=== PATIENT | female | born 1950 | race African-American/Black ===

== ENCOUNTER 2017-08-25 12:31 | Observation (INO) | payer OTHER ==
--- NOTE | 2017-08-25 13:14 | PDOC ---
Attending Attestation - Resident Resident Name: Phil Gomez - ED Attending Attestation I have performed the following: I have examined & evaluated the patient, The case was reviewed & discussed with the resident, I agree w/resident's findings & plan, Exceptions are as noted - HPI HPI: 08/25/17 13:13 "Almost Passed Out" - Physicial Exam PE: 08/25/17 13:14 VSS/NAD - Medical Decision Making 08/25/17 13:[address] Gomez's Assessment and Plan
[2017-08-25] MEDS ORDERED: ONDANSETRON 4 MG/2 ML VIAL ONE (13:33)
[2017-08-25] MEDS ORDERED: ONDANSETRON 4 MG/2 ML VIAL IVPUSH ONE (13:33)
--- NOTE | 2017-08-25 14:22 | PDOC ---
History of Present Illness - General Chief Complaint: Syncope/Near Syncope Stated Complaint: Syncope/Near Syncope Time Seen by Provider: 08/25/17 12:52 - History of Present Illness Initial Comments: 08/25/17 14:21 67 yo F with h/o CAD, BRCA+ breast ca. s/p BL masectomy, and partial hysterectomy, PE, multiple DVT's on Eliquis, CAD s/p [place], stent placement x 2, CVA x 3 who presents with lightheadedness. Patient reports onset of vague symptoms consisting of lightheadedness, non biliary, non bloody emesis, and fatigue beginning this Friday ( 08/22). States that it felt like she was going to pass out. Symptoms persistent through the last 4 days and worsening in severity and duration. Denies fevers/chills, vertigo, MONTIEL, chest pain, SOB, urinary complaints, bowel/abdominal complaints, or BRBPR. PCP Dr. Nasir Cash. Past History - Past Medical History Allergies/Adverse Reactions: Allergies Allergy/AdvReac Type Severity Reaction Status Date / Time No Known Drug Allergies Allergy Verified 06/03/16 16:31 Home Medications: Ambulatory Orders Docusate Sodium 100 mg PO BID 06/03/16 Multivitamin [Poly-Vitamin] 1 each PO DAILY 06/03/16 Omeprazole [Prilosec] 40 mg PO DAILY 06/03/16 Ranitidine [Zantac -] 150 mg PO DAILY 06/03/16 Apixaban [Eliquis] 5 mg PO BID 08/25/17 Calcium Carb/Vitamin D3/Vit K1 [Calcium + D Soft Chewable Tab] 1 each PO BID 01/06 Tamoxifen Citrate 20 mg PO DAILY 08/25/17 Cancer: Yes (left breast) Cardiac Disorders: Yes (cad) CVA: Yes (x3) COPD: No GI Disorders: Yes (GERD) Disorders: No HTN: Yes Hypercholesterolemia: Yes Liver Disease: No Thyroid Disease: No - Surgical History Cardiac Surgery: Yes (card stent x2) Lung Surgery: Yes (lt lumbectomy) Orthopedic Surgery: Yes (R. Foot bunionectomy) - Immunization History Immunization Up to Date: Yes - Suicide/Smoking/Psychosocial Hx Smoking Status: No Smoking History: Former smoker Have you smoked in the past 12 months: No Number of Cigarettes Smoked Daily: 0 If you are a former smoker, when did you quit?: 5YRS AGO Information on smoking cessation initiated: No Hx Alcohol Use: No Drug/Substance Use Hx: No Substance Use Type: None Hx Substance Use Treatment: No Review of Systems - Review of Systems Comments:: 08/25/17 14:43 GENERAL/CONSTITUTIONAL: + Fatigue. No fever or chills. No weakness. HEAD, EYES, EARS, NOSE AND THROAT: No change in vision. No ear pain or discharge. No sore throat.- CARDIOVASCULAR: No chest pain or shortness of breath RESPIRATORY: No cough, wheezing, or hemoptysis. GASTROINTESTINAL: + nausea, and vomiting. No diarrhea or constipation. GENITOURINARY: No dysuria, frequency, or change in urination. MUSCULOSKELETAL: No joint or muscle swelling or pain. No neck or back pain. SKIN: No rash NEUROLOGIC:+ Lightheadedness. No headache, vertigo, loss of consciousness, or change in strength/sensation. ENDOCRINE: No increased thirst. No abnormal weight change HEMATOLOGIC/LYMPHATIC: No anemia, easy bleeding, or history of blood clots. ALLERGIC/IMMUNOLOGIC: No hives or skin allergy. *Physical Exam - Vital Signs Last Vital Signs Temp Pulse Resp BP Pulse Ox 98.3 F 81 18 87/50 97 08/25/17 12:59 08/25/17 12:59 08/25/17 12:59 08/25/17 12:59 08/25/17 13:42 - Physical Exam Comments: 08/25/17 14:43 GENERAL: Awake, alert, and fully oriented, in no acute distress HEAD: No signs of trauma, normocephalic, atraumatic EYES: PERRLA, EOMI, sclera anicteric, conjunctiva clear ENT: Auricles normal inspection, hearing grossly normal, nares patent, oropharynx clear without exudates. Moist mucosa NECK: Normal ROM, supple, no lymphadenopathy, JVD, or masses LUNGS: No distress, speaks full sentences, clear to auscultation bilaterally HEART: Regular rate and rhythm, normal S1 and S2, no murmurs, rubs or gallops, peripheral pulses normal and equal bilaterally. ABDOMEN: Soft, nontender, normoactive bowel sounds. No guarding, no rebound. No masses EXTREMITIES : Normal inspection, Normal range of motion, no edema. No clubbing or cyanosis. NEUROLOGICAL: Cranial nerves II through XII grossly intact. Normal speech, normal gait, no focal sensorimotor deficits SKIN: Warm, Dry, normal turgor, no rashes or lesions noted. Heart Score/ECG Review - History History: Slightly suspicious - Electrocardiogram EKG: Non specific repolarization disturbance - Age Age: >/= 65 - Risk Factors Risk Factors Heart Score: Yes Hx Hypercholesterolemia, Yes Hx Hypertension, Yes Hx Diabetes, Yes Positive family hx of cardiac disease, Yes Hx Obesity Based on the list above the patient has:: >/=3 risk factors or Hx atherosclerotic disease - Troponin Troponin: </= normal limit - Score Heart Score - Total: 5 ED Treatment Course - LABORATORY CBC & Chemistry Diagram: 08/25/17 14:20 08/25/17 14:20 - RADIOLOGY Radiology Studies Ordered: Category Date Time Status CXRPORT [CHEST X-RAY PORTABLE*] [RAD] Stat Radiology 08/25/17 14:11 Ordered - Medications Given in the ED: ED Medications Discontinued Medications Generic Name Dose Route Start Last Admin Trade Name Freq PRN Reason Stop Dose Admin Ondansetron HCl 4 mg 08/25/17 13:33 08/25/17 13:35 Zofran Injection IVPUSH 08/25/17 13:34 4 mg ONCE ONE Administration Medical Decision Making - Medical Decision Making 08/25/17 14:36 67 yo F with h/o CAD, BRCA+ breast ca. s/p BL masectomy, PE, multiple DVT's, CAD s/p [place], stent placement x 2, CVA x 3 who presents with l4 days of vague symptoms consisting of lightheadedness, non biliary, non bloody emesis, and fatigue beginning this Friday ( 08/22). States that it felt like she was going to pass out this AM. Symptoms persistent through the last 4 days and worsening in severity and duration. Denies fevers/chills, vertigo, MONTIEL, chest pain, SOB, urinary complaints, bowel/abdominal complaints, or BRBPR. Physical exam unremarkable and hemodynamically stable. NIH stroke scale 0. Will obtain CT head to r/o CVA. Basic labs and cardiac workup to assess for arrhythmia vs. metabolic disturbance as cause of lightheadedness. ED Course: EKG: Sinus rhtyhm with diffuse TWI. Absent STD, or JACKI. 08/25/17 15:05 Cr: 1.8 ( 1.0 Baseline) 1 10/26/16 15:06 Trop Neg. 08/25/17 15:12 CXR: Unremarkable with no acute interval changes. 08/25/17 15:59 BNP: 550 Heart Score 5 13 % risk MACE. 08/25/17 16:44 CT HEAD: No gross acute intracranial pathology. 08/25/17 16:[address] Best ( Dr. Annabelle Murphy covering) 08/25/17 18:[address] Basilio will admit to night team. . *DC/Admit/Observation/Transfer Diagnosis at time of Disposition: Pre-syncope - Discharge Dispostion Disposition: HOME Condition at time of disposition: Stable Admit: Yes - Referrals Referrals: Shreya Best MD [Primary Care Provider] - - Patient Instructions - Post Discharge Activity
[2017-08-25 14:33] LABS: BASOPHIL 0.1 % (0-2.0); EOSINOPHIL 1.9 % (0-4.5); MCH 27.9 pg (25.7-33.7); MEAN PLT VOLUME 9.3 fl (7.5-11.1); NEUTROPHILS 66.5 % (42.8-82.8); PLATELET COUNT 227 K/MM3 (134-434); RDW 13.2 % (11.6-15.6); WHITE BLOOD COUNT 8.8 K/mm3 (4.0-10.0)
[2017-08-25] MEDS ORDERED: SODIUM CHLORIDE 500 ML IV STA (14:42)
[2017-08-25 14:59] VITALS: BMI 27.4
[2017-08-25 15:00] LABS: ALBUMIN 3.7 g/dl (3.4-5.0); ANION GAP 6 (8-16); BILIRUBIN,TOTAL 0.2 mg/dL (0.2-1.0); CALCIUM 9.8 mg/dL (8.5-10.1); CO2 27 mmol/L (21-32); CREATININE 1.8 mg/dL (0.55-1.02); GLUCOSE,RANDOM 94 mg/dL (74-106); SGPT/ALT 24 U/L (12-78); TOT PROT 6.5 g/dl (6.4-8.2)
[2017-08-25 15:01] LABS: ALK PHOS 48 U/L (45-117); SGOT/AST 21 U/L (15-37)
[2017-08-25 15:03] LABS: CPK 125 IU/L (26-192); TROPONIN I < 0.02 ng/ml (0.00-0.05)
[2017-08-25 15:16] LABS: TROPONIN I < 0.02 ng/ml (0.00-0.05)
[2017-08-25] MEDS ORDERED: SODIUM CHLORIDE 1,000 ML IV STA (16:48)
--- NOTE | 2017-08-25 22:02 | HP ---
CHIEF COMPLAINT: lightheadedness, vomiting PCP: Nasir HISTORY OF PRESENT ILLNESS: This is a 67 year old female with a PMH significant for CAD, MS, CVA who presented to the ED with a report of lightheadedness, nonbiliary, nonbloody emesis and fatigue x 4 days. This am she had an episode where she felt as if she was going to pass out. Pt reports that since arrival to ED and receiving treatment she no longer is vomiting and has successfully ambulated to the bathroom without feeling as if she was going to pass out. Pt denies SOB, palpitations, CP, abdominal pain, constipation, diarrhea. ER course was notable for: (1) troponin negative (2) CT head unremarkable (3) ECG with frequent PVCs Recent Travel: pt denies PAST MEDICAL HISTORY: CAD/MS s/p stents, HTN, HLD, CVA, PE, BrCA PAST SURGICAL HISTORY: B/L mastectomy stent x 2 L lung surgery, Lumpectomy vs lobectomy R foot bunionectomy Social History: Smoking: pt denies, quit in her 40s Alcohol: pt denies Drugs: pt denies Family History: mother in her 70s, heart disease father age 88, heart disease 7 brothers, all , heart disease 6 sisters, 2 , heart disease Allergies No Known Drug Allergies Allergy (Verified 06/03/16 16:31) HOME MEDICATIONS: 3 Medication Instructions Recorded Docusate Sodium 100 mg PO BID 06/03/16 Multivitamin [Poly-Vitamin] 1 each PO DAILY 06/03/16 Omeprazole [Prilosec] 40 mg PO DAILY 06/03/16 Apixaban [Eliquis] 5 mg PO BID 08/25/17 Calcium Carb/Vitamin D3/Vit K1 1 each PO BID 08/25/17 [Calcium + D Soft Chewable Tab] Tamoxifen Citrate 20 mg PO DAILY 08/25/17 REVIEW OF SYSTEMS CONSTITUTIONAL: Absent: fever, chills, diaphoresis, generalized weakness, malaise, loss of appetite, weight change HEENT: Absent: rhinorrhea, nasal congestion, throat pain, throat swelling, difficulty swallowing, mouth swelling, ear pain, eye pain, visual changes CARDIOVASCULAR: Absent: chest pain, syncope, palpitations, irregular heart rate, lightheadedness , peripheral edema RESPIRATORY: Absent: cough, shortness of breath, dyspnea with exertion, orthopnea, wheezing, stridor, hemoptysis GASTROINTESTINAL: Present: vomiting Absent: abdominal pain, abdominal distension, nausea, diarrhea, constipation, melena, hematochezia GENITOURINARY: Absent: dysuria, frequency, urgency, hesitancy, hematuria, flank pain, genital pain MUSCULOSKELETAL: Absent: myalgia, arthralgia, joint swelling, back pain, neck pain SKIN: Absent: rash, itching, pallor HEMATOLOGIC/IMMUNOLOGIC: Absent: easy bleeding, easy bruising, lymphadenopathy, frequent infections ENDOCRINE: Absent: unexplained weight gain, unexplained weight loss, heat intolerance, cold intolerance NEUROLOGIC: Present: lightheadedness Absent: headache, focal weakness or paresthesias, dizziness, unsteady gait, seizure, mental status changes, bladder or bowel incontinence PSYCHIATRIC: Absent: anxiety, depression, suicidal or homicidal ideation, hallucinations. PHYSICAL EXAMINATION Vital Signs - 24 hr 3 08/25/17 08/25/17 08/25/17 12:59 13:42 15:02 Temperature 98.3 F Pulse Rate 81 Pulse Rate [ 82 Apical] Respiratory 18 18 Rate Blood Pressure 87/50 Blood Pressure 89/53 [Right Arm] O2 Sat by Pulse 97 97 96 Oximetry (%) 3 08/25/17 08/25/17 17:19 21:51 Temperature 99.0 F 98.7 F Pulse Rate Pulse Rate [ 75 78 Apical] Respiratory 18 18 Rate Blood Pressure Blood Pressure 120/51 106/55 [Right Arm] O2 Sat by Pulse 96 95 Oximetry (%) GENERAL: Awake, alert, and fully oriented, in no acute distress. HEAD: Normal with no signs of trauma. EYES: Pupils equal, round and reactive to light, extraocular movements intact, sclera anicteric, conjunctiva clear. No lid lag. EARS, NOSE, THROAT: Ears normal, nares patent, oropharynx clear without exudates. Moist mucous membranes. NECK: Normal range of motion, supple without lymphadenopathy, JVD, or masses. LUNGS: Breath sounds equal, clear to auscultation bilaterally. No wheezes, and no crackles. No accessory muscle use. HEART: Regular rate and rhythm, normal S1 and S2 without murmur, rub or gallop. ABDOMEN: Soft, nontender, not distended, normoactive bowel sounds, no guarding, no rebound, no masses. No hepatomegaly or splenomegaly. MUSCULOSKELETAL: Normal range of motion at all joints. No bony deformities or tenderness. No CVA tenderness. UPPER EXTREMITIES: 2+ pulses, warm, well-perfused. No cyanosis. No clubbing. No peripheral edema. LOWER EXTREMITIES: 2+ pulses, warm, well-perfused. No calf tenderness. No peripheral edema. NEUROLOGICAL: Cranial nerves II-XII intact. Normal speech. Normal gait. PSYCHIATRIC: Cooperative. Good eye contact. Appropriate mood and affect. SKIN: Warm, dry, normal turgor, no rashes or lesions noted, normal capillary refill. Laboratory Results - last 24 hr 3 08/25/17 08/25/17 08/25/17 08/25/17 14:20 14:20 14:20 14:59 WBC 8.8 D RBC 4.11 Hgb 11.4 Hct 35.7 MCV 87.0 MCH 27.9 MCHC 32.0 RDW 13.2 Plt Count 227 MPV 9.3 Neutrophils % 66.5 D Lymphocytes % 23.9 D Monocytes % 7.6 Eosinophils % 1.9 Basophils % 0.1 Sodium 142 Potassium 4.7 Chloride 109 H Carbon Dioxide 27 Anion Gap 6 L BUN 20 H D Creatinine 1.8 H D Creat Clearance w eGFR 27.90 Random Glucose 94 Calcium 9.8 Total Bilirubin 0.2 D AST 21 D ALT 24 Alkaline Phosphatase 48 D Creatine Kinase 125 Troponin I < 0.02 < 0.02 B-Natriuretic Peptide 550.03 H Total Protein 6.5 Albumin 3.7 Lipase 197 ECG: sinus rhythm with sinus arrhythmia and frequent PVCs vent rate 76, QTC [address]/T changes Radiology Reports ASSESSMENT/PLAN: 67yF with PMH CAD/MS s/p stents, HTN, HLD, CVA, PE & DVTs, BrCA presented to the ED with lightheadedness, vomiting and near syncope. Near syncope - likely due to hypovolemia due to vomiting, received 1.5L NS in ED - CT head unremarkable - monitor on tele to r/o cardiac event - trend troponins, 1st negative Elevated Cr - 1.8 today, previously 1.2 in 08/2016 - ? r/t hypovolemia, vomiting - repeat BMP in am post IVF HTN/HLD/CAD - on no home medications for same as per current drug list - f/u with PCP for further management h/o DVT/PE - cont eliquis BrCA - cont tamoxifen FEN - NS @ 75cc/hr x 1 liter Dispo: pt currently requires inpatient cardiac monitoring/observation. Dr. Best's team to resume care of pt in am. Visit type - Emergency Visit Emergency Visit: Yes ED Registration Date: 08/25/17 Care time: The patient presented to the Emergency Department on the above date and was hospitalized for further evaluation of their emergent condition. - New Patient This patient is new to me today: Yes Date on this admission: 08/25/17 - Critical Care Critical Care patient: No
[2017-08-25] MEDS ORDERED: SODIUM CHLORIDE 1,000 ML IV SCH (23:15)
[2017-08-26 01:15] LABS: CPK 114 IU/L (26-192); TROPONIN I < 0.02 ng/ml (0.00-0.05)
[2017-08-26 08:34] LABS: BASOPHIL 0.8 % (0-2.0); EOSINOPHIL 3.4 % (0-4.5); MCH 27.4 pg (25.7-33.7); MCHC 31.5 g/dl (32.0-36.0); MEAN CELL VOLUME 87.2 fl (80-96); PLATELET COUNT 199 K/MM3 (134-434); RDW 13.7 % (11.6-15.6); WHITE BLOOD COUNT 6.1 K/mm3 (4.0-10.0)
[2017-08-26] MEDS ORDERED: PT OWN MED DRAWER 7, Y5N ONE (08:56)
[2017-08-26 09:04] LABS: ANION GAP 6 (8-16); CALCIUM 8.7 mg/dL (8.5-10.1); CO2 26 mmol/L (21-32); CREATININE 1.3 mg/dL (0.55-1.02); GLUCOSE,RANDOM 120 mg/dL (74-106); MAGNESIUM 1.7 mg/dL (1.8-2.4); PHOSPHOROUS 3.5 mg/dL (2.5-4.9)
[2017-08-26 09:09] LABS: CPK 125 IU/L (26-192); TROPONIN I < 0.02 ng/ml (0.00-0.05)
[2017-08-26] MEDS: CALCIUM 500MG/VIT-D 200 UNITS COMBO TABLET (FP) PO SCH ×2 (09:12→21:04)
[2017-08-26] MEDS: PANTOPRAZOLE 40 MG TABLET (FP) PO SCH (09:12)
[2017-08-26] MEDS: MULTIVITAMINS (DAILY MVI) TABLET (FP) PO SCH (09:12)
[2017-08-26] MEDS: TAMOXIFEN CITRATE 10 MG TABLET PO SCH (09:13)
[2017-08-26] MEDS: DOCUSATE SODIUM 100 MG CAPSULE (FP) PO SCH ×2 (09:13→21:04)
[2017-08-26] MEDS: APIXABAN 5 MG TABLET PO SCH ×2 (09:13→21:04)
--- NOTE | 2017-08-26 10:12 | PN ---
Progress Note, Physician Chief Complaint: Events noted Pt admitted for presyncope she was vomiting in ER yesterday and over the weekend , has not been feeling well - c/o heartburn, nausea, vomiting over the weekend . Had diarrhea yesterday C/O dizziness, palpitations, sweating yesterday , almost passed out but her LOAN CONSULTANT was with her and called EMS Today , she feels well . No diarrhea or vomiting-- ate her breakfast - Current Medication List Current Medications: Active Medications Apixaban (Eliquis -) 5 mg PO BID [facility] Last Admin: 08/26/17 09:13 Dose: 5 mg Calcium Carbonate/Cholecalciferol (Os-Jose 500+D -) 1 tab PO BID [facility] Last Admin: 08/26/17 09:12 Dose: 1 tab Docusate Sodium (Colace -) 100 mg PO BID [facility] Last Admin: 08/26/17 09:13 Dose: 100 mg Sodium Chloride (Normal Saline -) 1,000 mls @ 75 mls/hr IV ASDIR [facility] Stop: 08/26/17 12:34 Last Admin: 08/25/17 23:32 Dose: 75 mls/hr Multivitamins/Minerals/Vitamin C (Tab-A-Vit -) 1 tab PO DAILY [facility] Last Admin: 08/26/17 09:12 Dose: 1 tab Ondansetron HCl (Zofran Injection) 4 mg IVPUSH Q6H PRN PRN Reason: NAUSEA Pantoprazole Sodium (Protonix -) 40 mg PO DAILY [facility] Last Admin: 08/26/17 09:12 Dose: 40 mg Tamoxifen Citrate (Tamoxifen Citrate) 20 mg PO DAILY [facility] Last Admin: 08/26/17 09:13 Dose: Not Given - Objective Vital Signs: Vital Signs Temperature 97.4 F L 08/26/17 06:00 Pulse Rate 76 08/26/17 06:00 Respiratory Rate 20 08/26/17 06:00 Blood Pressure 152/65 08/26/17 06:00 O2 Sat by Pulse Oximetry (%) 96 08/25/17 23:25 Constitutional: Yes: No Distress, Calm Cardiovascular: Yes: Pulse Irregular Respiratory: Yes: CTA Bilaterally Gastrointestinal: Yes: Normal Bowel Sounds, Soft, Abdomen, Obese. No: Distention, Tenderness Edema: No Psychiatric: Yes: Alert, Oriented Labs: CBC, BMP 08/26/17 08:10 08/26/17 08:10 Problem List - Problems (1) Near syncope Code(s): R55 - SYNCOPE AND COLLAPSE (2) Breast cancer Code(s): C50.919 - MALIGNANT NEOPLASM OF UNSP SITE OF UNSPECIFIED FEMALE BREAST (3) Coronary artery disease Code(s): I25.10 - ATHSCL HEART DISEASE OF [place] CORONARY ARTERY W/O ANG PCTRS (4) Dizziness Code(s): R42 - DIZZINESS AND GIDDINESS Assessment/Plan PLAN Presyncope -- pt feels well now -- likely due to dehydration -- pt on iv fluids -- pt ambulating in her room -- check Telemetry -- Cardiology eval -- Cardiac enzymes negative Afib -- on Eliquis, rate is controlled H/O Breast CA -- stable, on Tamoxifen -- supportive care Gastroenteritis -- viral likely -- Zofran as needed and Protonix -- resolved
[2017-08-26 12:45] LABS: URINE APPEARANCE SLCLOUDY; URINE BILIRUBIN NEGATIVE (NEGATIVE); URINE BLOOD NEGATIVE (NEGATIVE); URINE COLOR LTYELLOW; URINE GLUCOSE (UA) NEGATIVE (NEGATIVE); URINE KETONE NEGATIVE (NEGATIVE); URINE NITRITE NEGATIVE (NEGATIVE); URINE PROTEIN NEGATIVE (NEGATIVE); URINE UROBILINOGEN NEGATIVE mg/dL (0.2-1.0)
[2017-08-26] MEDS ORDERED: MAGNESIUM SULF 50% (8.12 MEQ/2 ML-1 GM VIAL) IVPB ONE (14:15)
[2017-08-26] MEDS: ONDANSETRON 4 MG/2 ML VIAL IVPUSH PRN ×2 (14:41→21:12)
[2017-08-26 17:31] LABS: URINE LEUK ESTERASE Negative (NEGATIVE)
--- NOTE | 2017-08-27 07:55 | EKG ---
Test Reason : Blood Pressure : / mmHG Vent. Rate : 076 BPM Atrial Rate : 076 BPM P-R Int : 140 ms QRS Dur : 088 ms QT Int : 378 ms P-R-T Axes : 076 022 029 degrees QTc Int : 425 ms SINUS RHYTHM WITH SINUS ARRHYTHMIA WITH FREQUENT PREMATURE VENTRICULAR COMPLEXES POSSIBLE LEFT ATRIAL ENLARGEMENT SEPTAL INFARCT , AGE UNDETERMINED ABNORMAL ECG WHEN COMPARED WITH ECG OF 08-SEP-2016 12:37, SEPTAL INFARCT IS NOW PRESENT Confirmed by MD Rojas Daniel ([id number]) on 08/26/2017 2:58:42 PM Also confirmed by MD Rojas Daniel ([id number]), communications editor DOMINGO PEDRAZA ([id number]) on 08/27/2017 7:54:45 AM Referred By: Confirmed By:Domingo Rojas MD
[2017-08-27] MEDS: APIXABAN 5 MG TABLET PO SCH ×2 (09:11→21:49)
[2017-08-27] MEDS: CALCIUM 500MG/VIT-D 200 UNITS COMBO TABLET (FP) PO SCH ×2 (09:11→21:49)
[2017-08-27] MEDS: MULTIVITAMINS (DAILY MVI) TABLET (FP) PO SCH (09:11)
[2017-08-27] MEDS: TAMOXIFEN CITRATE 10 MG TABLET PO SCH (09:11)
[2017-08-27] MEDS: DOCUSATE SODIUM 100 MG CAPSULE (FP) PO SCH ×2 (09:11→21:49)
[2017-08-27] MEDS: PANTOPRAZOLE 40 MG TABLET (FP) PO SCH (09:11)
--- NOTE | 2017-08-27 09:30 | CON.CARD ---
Consult Consult Specialty:: Cardiology Referred by:: Annabelle Murphy MD Reason for Consultation:: Syncope - History of Present Illness Chief Complaint: Syncope History of Present Illness: Patient is a 67 year old female with underlying history of HTN , ASHD, S/P PCI, angina pectoris, CVA with residual left sided weakness, s/p lumpectomy for breast cancer, history of DVT and PTE, LV systolic dysfunction, carotid stenosis s/p right CEA and hypercholesterolemia who presented to the ED with complaint of lightheadedness, near without true syncope with typical prodromal sxs of diaphoresis, palpitations, nonbiliary, nonbloody emesis, diarrhea and fatigue all since resolved, tolerates oral intake. Regarding CV symptoms, denies chest pain, dyspnea, palpitations, orthopnea, PND or LE edema, ambulates with walker assistance. 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 Home Medications - Allergies Allergies/Adverse Reactions: Allergies Allergy/AdvReac Type Severity Reaction Status Date / Time No Known Drug Allergies Allergy Verified 06/03/16 16:31 - Home Medications Home Medications: Ambulatory Orders Docusate Sodium 100 mg PO BID 06/03/16 Multivitamin [Poly-Vitamin] 1 each PO DAILY 06/03/16 Omeprazole [Prilosec] 40 mg PO DAILY 06/03/16 Ranitidine [Zantac -] 150 mg PO DAILY 06/03/16 Apixaban [Eliquis] 5 mg PO BID 08/25/17 Calcium Carb/Vitamin D3/Vit K1 [Calcium + D Soft Chewable Tab] 1 each PO BID 01/06 Tamoxifen Citrate 20 mg PO DAILY 08/25/17 Family Disease History - Family Disease History Family Disease History: CA: Father (breast), Sister (breast), Other: Mother (CVA ) Review of Systems - Review of Systems Constitutional: reports: Diaphoresis Gastrointestinal: reports: Diarrhea, Nausea, Vomiting Neurological: reports: Dizziness Vital Signs: Vital Signs Temperature 99.2 F 08/27/17 05:00 Pulse Rate 84 08/27/17 05:00 Respiratory Rate 18 08/27/17 05:34 Blood Pressure 151/73 08/27/17 05:00 O2 Sat by Pulse Oximetry (%) 96 08/27/17 05:34 Constitutional: Yes: No Distress, Calm Neck: Yes: Supple Respiratory: Yes: Regular, CTA Bilaterally Gastrointestinal: Yes: Normal Bowel Sounds, Soft Cardiovascular: Yes: Regular Rate and Rhythm, Other (with ectopic beats) JVD: No Carotid Bruit: No Heart Sounds: Yes: S1, S2 Edema: No - Other Data Labs, Other Data: CBC, BMP 08/26/17 08:10 08/26/17 08:10 NSR PVC Ejection Fraction %: LVEF > or = 40 % Imaging - Results Cat Scan: Report Reviewed (HCT - No acute changes) Ultrasound: Report Reviewed (Right distal CCA 60-79%) Problem List - Problems (1) Near syncope Code(s): R55 - SYNCOPE AND COLLAPSE (2) Breast cancer Code(s): C50.919 - MALIGNANT NEOPLASM OF UNSP SITE OF UNSPECIFIED FEMALE BREAST Qualifiers: Breast location: unspecified site of breast (3) Cerebral arteriosclerosis with history of previous stroke Code(s): I67.2 - CEREBRAL ATHEROSCLEROSIS; Z86.73 - PRSNL HX OF TIA (TIA), AND CEREB INFRC W/O RESID DEFICITS (4) Coronary artery disease Code(s): I25.10 - ATHSCL HEART DISEASE OF [place] CORONARY ARTERY W/O ANG PCTRS Qualifiers: Coronary Disease-Associated Artery/Lesion type: [place] artery [place] vs. transplanted heart: [place] heart Associated angina: without angina Qualified Code(s): I25.10 - Atherosclerotic heart disease of [place] coronary artery without angina pectoris (5) Deep vein thrombosis (DVT) of left lower extremity Code(s): I82.402 - ACUTE EMBOLISM AND THOMBOS UNSP DEEP VEINS OF L LOW EXTREM Qualifiers: Affected thrombotic vein of extremity: unspecified vein of extremity Chronicity: acute Qualified Code(s): I82.402 - Acute embolism and thrombosis of unspecified deep veins of left lower extremity (6) History of pulmonary embolus (PE) Code(s): Z86.711 - PERSONAL HISTORY OF PULMONARY EMBOLISM (7) Hypertension Code(s): I10 - ESSENTIAL (PRIMARY) HYPERTENSION Qualifiers: Hypertension type: essential hypertension Qualified Code(s): I10 - Essential (primary) hypertension (8) S/P coronary artery stent placement Code(s): Z95.5 - PRESENCE OF CORONARY ANGIOPLASTY IMPLANT AND GRAFT (9) Chronic anticoagulation Code(s): Z79.01 - CUSTOM GRINDER (CURRENT) USE OF ANTICOAGULANTS (10) Premature ventricular contraction Code(s): I49.3 - VENTRICULAR PREMATURE DEPOLARIZATION (11) Systolic dysfunction without heart failure Code(s): I51.9 - HEART DISEASE, UNSPECIFIED (12) Vzrvz-am-mwerjdr kidney injury Code(s): N17.9 - ACUTE KIDNEY FAILURE, UNSPECIFIED; N18.9 - CHRONIC KIDNEY DISEASE, UNSPECIFIED Qualifiers: Acute renal failure type: unspecified Chronic kidney disease stage: unspecified stage Qualified Code(s): N17.9 - Acute kidney failure, unspecified ; N18.9 - Chronic kidney disease, unspecified; N18.9 - Chronic kidney disease, unspecified Assessment/Plan 08/13/2017 Mild-mod decreased LV fxn with mod dilated LV LVEF 46% 1. Vasovagal near syncope with typical prodromal sxs in context of nausea, emesis and diarrhea 2. ASHD, S/P DEAN mLAD ISR, angina pectoris 3. 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 History of CVA/stroke with residual deficit 5. 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 HTN 7. Hypercholesterolemia 8. PVC 9. Carotid disease s/p right CEA 10. Breast ca s/p bilateral mastectomy with reconstruction 11. Acute on CKD pre-renal improved PLAN: 1. Resume carvedilol 25 bid, vasotec 5 bid, and Crestor 20 qhs, resume Aldactone 25 qd once renal function at baseline 2. Maintain on Eliquis 5 bid 3. Addressed abortive measures once prodromal sxs encountered 4. May d/c from CV-standpoint with f/u with me in office [phone] 5. Thank you for consultative opportunity
[2017-08-27] MEDS ORDERED: SPIRONOLACTONE 25 MG TABLET (FP) PO SCH (10:00)
[2017-08-27] MEDS: CARVEDILOL 25 MG TABLET (FP) PO SCH ×2 (10:58→21:49)
[2017-08-27] MEDS: ROSUVASTATIN CA 20 MG TABLET (FP) PO SCH ×2 (10:58→21:49)
[2017-08-27] MEDS: ENALAPRIL MALEATE 5 MG TABLET (FP) PO SCH ×2 (10:59→21:49)
--- NOTE | 2017-08-27 14:10 | PN ---
Progress Note (short form) - Note Progress Note: Vascular Surgery Pt's carotid doppler reviewed. S/P right CEA in past. Velocities are all within normal limits At best maybe 40% stenosis on the right side. If MRA is ordered, will follow. medical management. Wes Norris DO
--- NOTE | 2017-08-27 17:48 | PN ---
Progress Note (short form) - Note Progress Note: pt seen/ examined chart reviewed. still feels nauseated - better denies abd pain. vascular consult noted / appreciated will order mra Vital Signs Temp 97.5 F L 08/27/17 13:00 Pulse 77 08/27/17 13:00 Resp 77 H 08/27/17 13:00 BP 107/88 08/27/17 13:00 Pulse Ox 96 08/27/17 09:54 Intake & Output 08/26/17 08/27/17 08/27/17 23:59 11:59 23:59 Intake Total 350 100 700 Output Total 400 Balance -50 100 700 Intake: IV 100 Normal Saline - 1,000 ml 100 @ 75 mls/hr IV [facility] Rx#:[id number] IVPB 150 Oral 100 100 700 Output: Urine 400 Void 400 Other: Voiding Method Toilet Toilet # Unmeasured Voids Void 1 2 Bowel Movement No Active Medications Apixaban (Eliquis -) 5 mg PO BID [facility] Last Admin: 08/27/17 09:11 Dose: 5 mg Calcium Carbonate/Cholecalciferol (Os-Jose 500+D -) 1 tab PO BID [facility] Last Admin: 08/27/17 09:11 Dose: 1 tab Carvedilol (Coreg -) 25 mg PO BID [facility] Last Admin: 08/27/17 10:58 Dose: 25 mg Docusate Sodium (Colace -) 100 mg PO BID [facility] Last Admin: 08/27/17 09:11 Dose: 100 mg Enalapril Maleate (Vasotec -) 5 mg PO BID [facility] Last Admin: 08/27/17 10:59 Dose: 5 mg Multivitamins/Minerals/Vitamin C (Tab-A-Vit -) 1 tab PO DAILY [facility] Last Admin: 08/27/17 09:11 Dose: 1 tab Ondansetron HCl (Zofran Injection) 4 mg IVPUSH Q6H PRN PRN Reason: NAUSEA Last Admin: 08/26/17 21:12 Dose: 4 mg Pantoprazole Sodium (Protonix -) 40 mg PO DAILY [facility] Last Admin: 08/27/17 09:11 Dose: 40 mg Rosuvastatin Calcium (Crestor -) 20 mg PO HS [facility] Last Admin: 08/27/17 10:58 Dose: 20 mg Tamoxifen Citrate (Tamoxifen Citrate) 20 mg PO DAILY [facility] Last Admin: 08/27/17 09:11 Dose: 20 mg CBC, BMP 08/26/17 08:10 08/26/17 08:10 Physical Exam. Constitutional: Yes: No Distress, Calm. comfortable Cardiovascular: Yes: Pulse Irregular. Respiratory: Yes: CTA Bilaterally Gastrointestinal: Yes: Normal Bowel Sounds, Soft, non tender. bs + Edema: No Psychiatric: Yes: Alert, Oriented. Problem List - Problems (1) Near syncope Code(s): R55 - SYNCOPE AND COLLAPSE (2) Breast cancer Code(s): C50.919 - MALIGNANT NEOPLASM OF UNSP SITE OF UNSPECIFIED FEMALE BREAST (3) Coronary artery disease Code(s): I25.10 - ATHSCL HEART DISEASE OF [place] CORONARY ARTERY W/O ANG PCTRS (4) Dizziness Code(s): R42 - DIZZINESS AND GIDDINESS Assessment/Plan clinically stable. continue present care. zofron for nausea protonix . mra carotid arteries daily oob - chair will follow.
[2017-08-28 07:37] LABS: BASOPHIL 1.1 % (0-2.0); EOSINOPHIL 4.4 % (0-4.5); MCH 27.4 pg (25.7-33.7); MCHC 31.6 g/dl (32.0-36.0); MEAN CELL VOLUME 86.7 fl (80-96); MEAN PLT VOLUME 9.7 fl (7.5-11.1); NEUTROPHILS 42.2 % (42.8-82.8); PLATELET COUNT 218 K/MM3 (134-434); RDW 13.7 % (11.6-15.6); WHITE BLOOD COUNT 6.4 K/mm3 (4.0-10.0)
[2017-08-28 08:13] LABS: ALBUMIN 3.8 g/dl (3.4-5.0); ALK PHOS 49 U/L (45-117); ANION GAP 8 (8-16); BILIRUBIN,TOTAL 0.6 mg/dL (0.2-1.0); CALCIUM 9.7 mg/dL (8.5-10.1); CO2 26 mmol/L (21-32); CREATININE 1.3 mg/dL (0.55-1.02); GLUCOSE,RANDOM 93 mg/dL (74-106); SGOT/AST 14 U/L (15-37); SGPT/ALT 24 U/L (12-78); TOT PROT 6.7 g/dl (6.4-8.2)
--- NOTE | 2017-08-28 08:45 | PN ---
Progress Note (short form) - Note Progress Note: patient seen and examined. Patient reports she feels much better Denies any nausea or vomiting today Denies headache or dizziness. Vital Signs Temp 99.0 F 08/28/17 08:14 Pulse 98 H 08/28/17 08:14 Resp 18 08/28/17 08:14 BP 120/88 08/28/17 08:14 Pulse Ox 98 08/28/17 08:15 Intake & Output 08/27/17 08/27/17 08/28/17 11:59 23:59 11:59 Intake Total 100 1090 120 Balance 100 1090 120 Intake: IVPB 20 Oral 100 1070 120 Other: Voiding Method Toilet Toilet Toilet # Unmeasured Voids Void 1 2 Bowel Movement No CBC, BMP 08/28/17 07:05 bmp- pending mra- pending Physical Exam. Constitutional: Yes: No Distress, Calm. comfortable Cardiovascular: Yes: Pulse Irregular. Respiratory: Yes: CTA Bilaterally Gastrointestinal: Yes: Normal Bowel Sounds, Soft, non tender. bs + Edema: No Psychiatric: Yes: Alert, Oriented. Problem List - Problems (1) Near syncope Code(s): R55 - SYNCOPE AND COLLAPSE (2) Breast cancer Code(s): C50.919 - MALIGNANT NEOPLASM OF UNSP SITE OF UNSPECIFIED FEMALE BREAST (3) Coronary artery disease Code(s): I25.10 - ATHSCL HEART DISEASE OF [place] CORONARY ARTERY W/O ANG PCTRS (4) Dizziness Code(s): R42 - DIZZINESS AND GIDDINESS Assessment/Plan clinically stable. continue present care. zofron for nausea protonix . mra carotid arteries---Pending daily oob - chair will follow. if stable--anticipate discharge later today.--after MRI. Discussed with nursing staff. Will follow
[2017-08-28] MEDS: CARVEDILOL 25 MG TABLET (FP) PO SCH ×2 (09:02→21:37)
[2017-08-28] MEDS: MULTIVITAMINS (DAILY MVI) TABLET (FP) PO SCH (09:02)
[2017-08-28] MEDS: DOCUSATE SODIUM 100 MG CAPSULE (FP) PO SCH ×2 (09:02→21:37)
[2017-08-28] MEDS: ENALAPRIL MALEATE 5 MG TABLET (FP) PO SCH ×2 (09:02→21:38)
[2017-08-28] MEDS: APIXABAN 5 MG TABLET PO SCH ×2 (09:03→21:38)
[2017-08-28] MEDS: PANTOPRAZOLE 40 MG TABLET (FP) PO SCH (09:03)
[2017-08-28] MEDS: CALCIUM 500MG/VIT-D 200 UNITS COMBO TABLET (FP) PO SCH ×2 (09:03→21:38)
[2017-08-28] MEDS: TAMOXIFEN CITRATE 10 MG TABLET PO SCH (09:04)
--- NOTE | 2017-08-28 10:01 | PN ---
Progress Note, Physician History of Present Illness: No further near or true syncope, no events on telemetry. - Current Medication List Current Medications: Active Medications Apixaban (Eliquis -) 5 mg PO BID [facility] Last Admin: 08/28/17 09:03 Dose: 5 mg Calcium Carbonate/Cholecalciferol (Os-Jose 500+D -) 1 tab PO BID [facility] Last Admin: 08/28/17 09:03 Dose: 1 tab Carvedilol (Coreg -) 25 mg PO BID [facility] Last Admin: 08/28/17 09:02 Dose: 25 mg Docusate Sodium (Colace -) 100 mg PO BID [facility] Last Admin: 08/28/17 09:02 Dose: 100 mg Enalapril Maleate (Vasotec -) 5 mg PO BID [facility] Last Admin: 08/28/17 09:02 Dose: 5 mg Multivitamins/Minerals/Vitamin C (Tab-A-Vit -) 1 tab PO DAILY [facility] Last Admin: 08/28/17 09:02 Dose: 1 tab Ondansetron HCl (Zofran Injection) 4 mg IVPUSH Q6H PRN PRN Reason: NAUSEA Last Admin: 08/26/17 21:12 Dose: 4 mg Pantoprazole Sodium (Protonix -) 40 mg PO DAILY [facility] Last Admin: 08/28/17 09:03 Dose: 40 mg Rosuvastatin Calcium (Crestor -) 20 mg PO HS [facility] Last Admin: 08/27/17 21:49 Dose: 20 mg Tamoxifen Citrate (Tamoxifen Citrate) 20 mg PO DAILY [facility] Last Admin: 08/28/17 09:04 Dose: 20 mg - Objective Vital Signs: Vital Signs Temperature 99.0 F 08/28/17 08:14 Pulse Rate 98 H 08/28/17 08:14 Respiratory Rate 18 08/28/17 08:14 Blood Pressure 120/88 08/28/17 08:14 O2 Sat by Pulse Oximetry (%) 98 08/28/17 08:15 Constitutional: Yes: No Distress, Calm Neck: Yes: Supple Respiratory: Yes: Regular, CTA Bilaterally Gastrointestinal: Yes: Normal Bowel Sounds, Soft, Abdomen, Obese Edema: No Labs: CBC, BMP 08/28/17 07:05 08/28/17 07:05 - ....Imaging EKG: Report Reviewed (Tele: NSR occ PVC) Problem List - Problems (1) Near syncope Code(s): R55 - SYNCOPE AND COLLAPSE (2) Breast cancer Code(s): C50.919 - MALIGNANT NEOPLASM OF UNSP SITE OF UNSPECIFIED FEMALE BREAST Qualifiers: Breast location: unspecified site of breast (3) Cerebral arteriosclerosis with history of previous stroke Code(s): I67.2 - CEREBRAL ATHEROSCLEROSIS; Z86.73 - PRSNL HX OF TIA (TIA), AND CEREB INFRC W/O RESID DEFICITS (4) Coronary artery disease Code(s): I25.10 - ATHSCL HEART DISEASE OF [place] CORONARY ARTERY W/O ANG PCTRS Qualifiers: Coronary Disease-Associated Artery/Lesion type: [place] artery [place] vs. transplanted heart: [place] heart Associated angina: without angina Qualified Code(s): I25.10 - Atherosclerotic heart disease of [place] coronary artery without angina pectoris (5) Deep vein thrombosis (DVT) of left lower extremity Code(s): I82.402 - ACUTE EMBOLISM AND THOMBOS UNSP DEEP VEINS OF L LOW EXTREM Qualifiers: Affected thrombotic vein of extremity: unspecified vein of extremity Chronicity: acute Qualified Code(s): I82.402 - Acute embolism and thrombosis of unspecified deep veins of left lower extremity (6) History of pulmonary embolus (PE) Code(s): Z86.711 - PERSONAL HISTORY OF PULMONARY EMBOLISM (7) Hypertension Code(s): I10 - ESSENTIAL (PRIMARY) HYPERTENSION Qualifiers: Hypertension type: essential hypertension Qualified Code(s): I10 - Essential (primary) hypertension (8) S/P coronary artery stent placement Code(s): Z95.5 - PRESENCE OF CORONARY ANGIOPLASTY IMPLANT AND GRAFT (9) Chronic anticoagulation Code(s): Z79.01 - [facility] (CURRENT) USE OF ANTICOAGULANTS (10) Premature ventricular contraction Code(s): I49.3 - VENTRICULAR PREMATURE DEPOLARIZATION (11) Systolic dysfunction without heart failure Code(s): I51.9 - HEART DISEASE, UNSPECIFIED (12) Zdfpu-dx-eeodphw kidney injury Code(s): N17.9 - ACUTE KIDNEY FAILURE, UNSPECIFIED; N18.9 - CHRONIC KIDNEY DISEASE, UNSPECIFIED Qualifiers: Acute renal failure type: unspecified Chronic kidney disease stage: unspecified stage Qualified Code(s): N17.9 - Acute kidney failure, unspecified ; N18.9 - Chronic kidney disease, unspecified; N18.9 - Chronic kidney disease, unspecified Assessment/Plan 08/13/2017 Mild-mod decreased LV fxn with mod dilated LV LVEF 46% 1. Vasovagal near syncope with typical prodromal sxs in context of nausea, emesis and diarrhea since resolved 2. ASHD, S/P DEAN mLAD ISR, angina pectoris 3. 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 History of CVA/stroke with residual deficit 5. 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 HTN 7. Hypercholesterolemia 8. PVC 9. Carotid disease s/p right CEA 10. Breast ca s/p bilateral mastectomy with reconstruction 11. Acute on CKD pre-renal improved PLAN: 1. Continue carvedilol 25 bid, vasotec 5 bid, and Crestor 20 qhs, resume Aldactone 25 qd now that renal function stabilizing 2. Maintain on Eliquis 5 bid 3. Addressed abortive measures once prodromal sxs encountered 4. May d/c from CV-standpoint with f/u with me in office [phone]
[2017-08-28] MEDS: ROSUVASTATIN CA 20 MG TABLET (FP) PO SCH (21:37)
[2017-08-29 08:40] VITALS: BP 130/69; PULSE 89; TEMP 98.9
--- NOTE | 2017-08-29 09:10 | PN ---
Progress Note (short form) - Note Progress Note: VAscular Surgery MRA neck non diagnostic. Carotid doppler with normal velocities. Hx of right CEA. No need to get CTA. Medical management. Wes Norris DO
--- NOTE | 2017-08-29 09:23 | PN ---
Progress Note, Physician History of Present Illness: No further near or true syncope, no events on telemetry. - Current Medication List Current Medications: Active Medications Apixaban (Eliquis -) 5 mg PO BID [facility] Last Admin: 08/28/17 21:38 Dose: 5 mg Calcium Carbonate/Cholecalciferol (Os-Jose 500+D -) 1 tab PO BID [facility] Last Admin: 08/28/17 21:38 Dose: 1 tab Carvedilol (Coreg -) 25 mg PO BID [facility] Last Admin: 08/28/17 21:37 Dose: 25 mg Docusate Sodium (Colace -) 100 mg PO BID [facility] Last Admin: 08/28/17 21:37 Dose: 100 mg Enalapril Maleate (Vasotec -) 5 mg PO BID [facility] Last Admin: 08/28/17 21:38 Dose: 5 mg Multivitamins/Minerals/Vitamin C (Tab-A-Vit -) 1 tab PO DAILY [facility] Last Admin: 08/28/17 09:02 Dose: 1 tab Ondansetron HCl (Zofran Injection) 4 mg IVPUSH Q6H PRN PRN Reason: NAUSEA Last Admin: 08/26/17 21:12 Dose: 4 mg Pantoprazole Sodium (Protonix -) 40 mg PO DAILY [facility] Last Admin: 08/28/17 09:03 Dose: 40 mg Rosuvastatin Calcium (Crestor -) 20 mg PO HS [facility] Last Admin: 08/28/17 21:37 Dose: 20 mg Spironolactone (Aldactone -) 25 mg PO DAILY [facility] Tamoxifen Citrate (Tamoxifen Citrate) 20 mg PO DAILY [facility] Last Admin: 08/28/17 09:04 Dose: 20 mg - Objective Vital Signs: Vital Signs Temperature 98.9 F 08/29/17 08:36 Pulse Rate 89 08/29/17 08:36 Respiratory Rate 18 08/29/17 08:36 Blood Pressure 130/69 08/29/17 08:36 O2 Sat by Pulse Oximetry (%) 96 08/29/17 08:36 Constitutional: Yes: No Distress, Calm Neck: Yes: Supple Cardiovascular: Yes: Regular Rate and Rhythm Respiratory: Yes: Regular, CTA Bilaterally Gastrointestinal: Yes: Normal Bowel Sounds, Soft Edema: No Labs: CBC, BMP 08/28/17 07:05 08/28/17 07:05 - ....Imaging EKG: Report Reviewed (Tele: [facility]) Problem List - Problems (1) Near syncope Code(s): R55 - SYNCOPE AND COLLAPSE (2) Breast cancer Code(s): C50.919 - MALIGNANT NEOPLASM OF UNSP SITE OF UNSPECIFIED FEMALE BREAST Qualifiers: Breast location: unspecified site of breast (3) Cerebral arteriosclerosis with history of previous stroke Code(s): I67.2 - CEREBRAL ATHEROSCLEROSIS; Z86.73 - PRSNL HX OF TIA (TIA), AND CEREB INFRC W/O RESID DEFICITS (4) Coronary artery disease Code(s): I25.10 - ATHSCL HEART DISEASE OF [place] CORONARY ARTERY W/O ANG PCTRS Qualifiers: Coronary Disease-Associated Artery/Lesion type: [place] artery [place] vs. transplanted heart: [place] heart Associated angina: without angina Qualified Code(s): I25.10 - Atherosclerotic heart disease of [place] coronary artery without angina pectoris (5) Deep vein thrombosis (DVT) of left lower extremity Code(s): I82.402 - ACUTE EMBOLISM AND THOMBOS UNSP DEEP VEINS OF L LOW EXTREM Qualifiers: Affected thrombotic vein of extremity: unspecified vein of extremity Chronicity: acute Qualified Code(s): I82.402 - Acute embolism and thrombosis of unspecified deep veins of left lower extremity (6) History of pulmonary embolus (PE) Code(s): Z86.711 - PERSONAL HISTORY OF PULMONARY EMBOLISM (7) Hypertension Code(s): I10 - ESSENTIAL (PRIMARY) HYPERTENSION Qualifiers: Hypertension type: essential hypertension Qualified Code(s): I10 - Essential (primary) hypertension (8) S/P coronary artery stent placement Code(s): Z95.5 - PRESENCE OF CORONARY ANGIOPLASTY IMPLANT AND GRAFT (9) Chronic anticoagulation Code(s): Z79.01 - [facility] (CURRENT) USE OF ANTICOAGULANTS (10) Premature ventricular contraction Code(s): I49.3 - VENTRICULAR PREMATURE DEPOLARIZATION (11) Systolic dysfunction without heart failure Code(s): I51.9 - HEART DISEASE, UNSPECIFIED (12) Nisqh-ys-cpxtljj kidney injury Code(s): N17.9 - ACUTE KIDNEY FAILURE, UNSPECIFIED; N18.9 - CHRONIC KIDNEY DISEASE, UNSPECIFIED Qualifiers: Acute renal failure type: unspecified Chronic kidney disease stage: unspecified stage Qualified Code(s): N17.9 - Acute kidney failure, unspecified ; N18.9 - Chronic kidney disease, unspecified; N18.9 - Chronic kidney disease, unspecified Assessment/Plan 08/13/2017 Mild-mod decreased LV fxn with mod dilated LV LVEF 46% 1. Vasovagal near syncope with typical prodromal sxs in context of nausea, emesis and diarrhea since resolved 2. ASHD, S/P DEAN mLAD ISR, angina pectoris 3. 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 History of CVA/stroke with residual deficit 5. 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 HTN 7. Hypercholesterolemia 8. PVC 9. Carotid disease s/p right CEA 10. Breast ca s/p bilateral mastectomy with reconstruction 11. Acute on CKD pre-renal improved PLAN: 1. Continue carvedilol 25 bid, vasotec 5 bid, Crestor 20 qhs, and Aldactone 25 qd now that renal function stabilizing 2. Maintain on Eliquis 5 bid 3. Addressed abortive measures once prodromal sxs encountered 4. MRA neck nondiagnostic, january d/c from CV-standpoint with f/u with me in office [phone]
--- NOTE | 2017-08-29 09:24 | DS ---
Physical Examination Vital Signs: Vital Signs Temperature 98.9 F 08/29/17 08:36 Pulse Rate 89 08/29/17 08:36 Respiratory Rate 18 08/29/17 08:36 Blood Pressure 130/69 08/29/17 08:36 O2 Sat by Pulse Oximetry (%) 96 08/29/17 08:36 Findings/Remarks: feels well no complaints Wants to go home Eating well Constitutional: Yes: No Distress, Calm Eyes: Yes: Conjunctiva Clear Neck: Yes: Supple Cardiovascular: Yes: Regular Rate and Rhythm Respiratory: Yes: CTA Bilaterally Gastrointestinal: Yes: Soft Edema: No Neurological: Yes: Alert, Pre-Existing Deficit Labs: CBC, BMP 08/28/17 07:05 08/28/17 07:05 Discharge Summary Reason For Visit: PRE-SYNCOPE Current Active Problems Zyhiw-vy-mfnouyr kidney injury (Acute) Chronic anticoagulation (Acute) Near syncope (Acute) Premature ventricular contraction (Acute) S/P coronary artery stent placement (Acute) Systolic dysfunction without heart failure (Acute) Hospital Course: This is a 67 year old female with a PMH significant for CAD, [place], CVA who presented to the ED with a report of lightheadedness, nonbiliary, non bloody emesis and fatigue x 4 days patient admitted to telemetry Workup negative including--- monitoring--- CT head Underwent CAROTID/MRI Vascular surgery also followed--no further intervention needed--discussed with Dr. Norris Patient also followed by cardiology. Stable for discharge Medications reconciled Discussed in detail with patient Follow-up in office next week. Patient in agreement. Patient followed with curator and other specialists as advised by them. Condition: Stable - Instructions Referrals: Aries Hyman MD [Staff Physician] - Shreya Best MD [Primary Care Provider] - Disposition: HOME - Home Medications Comprehensive Discharge Medication List: Ambulatory Orders Docusate Sodium 100 mg PO BID 06/03/16 Multivitamin [Poly-Vitamin] 1 each PO DAILY 06/03/16 Omeprazole [Prilosec] 40 mg PO DAILY 06/03/16 Apixaban [Eliquis] 5 mg PO BID 08/25/17 Calcium Carb/Vitamin D3/Vit K1 [Calcium + D Soft Chewable Tab] 1 each PO BID 01/06 Tamoxifen Citrate 20 mg PO DAILY 08/25/17 Calcium 500Mg/Vit-D 200 Units [Os-Jose 500+D -] 1 tab PO BID tab 08/28/17 Carvedilol [Coreg -] 25 mg PO BID tablet 08/28/17 Enalapril Maleate [Vasotec -] 5 mg PO BID tablet 08/28/17 Rosuvastatin [Crestor -] 20 mg PO HS tablet 08/28/17 Spironolactone [Aldactone -] 25 mg PO DAILY tablet 08/28/17
[2017-08-29] MEDS: CALCIUM 500MG/VIT-D 200 UNITS COMBO TABLET (FP) PO SCH (09:39)
[2017-08-29] MEDS: APIXABAN 5 MG TABLET PO SCH (09:39)
[2017-08-29] MEDS: CARVEDILOL 25 MG TABLET (FP) PO SCH (09:39)
[2017-08-29] MEDS: DOCUSATE SODIUM 100 MG CAPSULE (FP) PO SCH (09:39)
[2017-08-29] MEDS: PANTOPRAZOLE 40 MG TABLET (FP) PO SCH (09:39)
[2017-08-29] MEDS: ENALAPRIL MALEATE 5 MG TABLET (FP) PO SCH (09:39)
[2017-08-29] MEDS: MULTIVITAMINS (DAILY MVI) TABLET (FP) PO SCH (09:39)
[2017-08-29] MEDS: TAMOXIFEN CITRATE 10 MG TABLET PO SCH (09:40)
[2017-08-29] MEDS ORDERED: SPIRONOLACTONE 25 MG TABLET (FP) PO SCH (10:00)
[2017-08-29] MEDS ORDERED: ACETAMINOPHEN 325 MG TABLET (FP) PO ONE (10:45)
== END 2017-08-29 13:51 | disposition home or self-care (01) ==
LOC: JER 12:31 → JERBED 18:19 → J4W 23:38
PROVIDERS: ADMIT Internal Medicine; ATTEND Internal Medicine
PROC: 3E0337Z Introduction of Electrolytic and Water Balance Substance into Peripheral Vein, Percutaneous Approach (ICD-10-PCS; principal; 2017-08-25)
PROC: 3E033GC Introduction of Other Therapeutic Substance into Peripheral Vein, Percutaneous Approach (ICD-10-PCS; 2017-08-25)
PROC: 3E033GC Introduction of Other Therapeutic Substance into Peripheral Vein, Percutaneous Approach (ICD-10-PCS; 2017-08-25)
DX: R55 Syncope and collapse (principal); I25.119 Atherosclerotic heart disease of native coronary artery with unspecified angina pectoris; I13.10 Hypertensive heart and chronic kidney disease without heart failure, with stage 1 through stage 4 chronic kidney disease, or unspecified chronic kidney disease; N18.9 Chronic kidney disease, unspecified; Z95.5 Presence of coronary angioplasty implant and graft; I49.3 Ventricular premature depolarization; I67.2 Cerebral atherosclerosis; Z86.73 Personal history of transient ischemic attack (TIA), and cerebral infarction without residual deficits; Z86.718 Personal history of other venous thrombosis and embolism; Z86.711 Personal history of pulmonary embolism; Z79.01 Long term (current) use of anticoagulants; Z95.828 Presence of other vascular implants and grafts
CPT/HCPCS: 36415; 70450-TC; 70547-TC; 71010-TC; 80048; 80053; 81003; 82550; 83690; 83735; 83880; 84100; 84484; 85025; 93005; 93010; 93880-TC; 96360; 96361; 96374; 96375; 97116-GP; 97161-GP; 99285-25; G0378

== ENCOUNTER → 2017-10-07 | Day surgery (SDC) | payer OTHER ==
[~2017-10-07] MED LIST: IRON SUCROSE INJECTION 100 MG in SODIUM CHLORIDE 100 ML IVPB ONE
[2017-10-07 10:39] VITALS: BP 115/58; PULSE 79; TEMP 98.5
[2017-10-07 11:01] LABS: BASO % 1.1 % (0-2.0); HEMATOCRIT 34.5 % (32.4-45.2); HEMOGLOBIN 10.8 GM/dL (10.7-15.3); MCH 27.1 pg (25.7-33.7); MCHC 31.3 g/dl (32.0-36.0); MEAN CELL VOLUME 86.5 fl (80-96); MEAN PLT VOLUME 8.8 fl (7.5-11.1); MONO % 9.8 % (3.8-10.2); NEUT % 33.1 % (42.8-82.8); PLATELET COUNT 250 K/MM3 (134-434); RBC 3.98 M/mm3 (3.60-5.2); RDW 14.1 % (11.6-15.6); WHITE BLOOD COUNT 5.3 K/mm3 (4.0-10.0)
[2017-10-07 11:22] LABS: ALBUMIN 3.6 g/dl (3.4-5.0); ANION GAP 7 (8-16); BLOOD UREA NITROGEN 18 mg/dL (7-18); CALCIUM 8.8 mg/dL (8.5-10.1); CHLORIDE 107 mmol/L (98-107); CO2 26 mmol/L (21-32); GLUCOSE,RANDOM 95 mg/dL (74-106); MAGNESIUM 1.7 mg/dL (1.8-2.4); POTASSIUM 4.5 mmol/L (3.5-5.1); SODIUM 140 mmol/L (136-145)
[2017-10-07 11:27] LABS: ALK PHOS 49 U/L (45-117); BILIRUBIN,DIRECT < 0.2 mg/dL (0.0-0.2); BILIRUBIN,TOTAL 0.3 mg/dL (0.2-1.0); CREATININE 1.3 mg/dL (0.55-1.02); SGOT/AST 16 U/L (15-37); SGPT/ALT 21 U/L (12-78); TOT PROT 6.6 g/dl (6.4-8.2)
== END | disposition home or self-care (01) ==
LOC: JONCNONCHE 09-29 07:26
PROVIDERS: ATTEND Internal Medicine Hematology & Oncology
PROC: 0JPVXVZ Removal of Infusion Pump from Upper Extremity Subcutaneous Tissue and Fascia, External Approach (ICD-10-PCS; principal; 2017-10-07)
DX: Z53.8 Procedure and treatment not carried out for other reasons (principal)
CPT/HCPCS: 36415; 80053; 80076; 83735; 85025

== ENCOUNTER 2017-10-29 15:53 | Inpatient (IN) | payer OTHER ==
--- NOTE | 2017-10-29 17:08 | PDOC ---
History of Present Illness - History of Present Illness Initial Comments: 10/29/17 17:12 67 yo F with h/o HTN, HLD, NIDDM, CKD, CAD s/p R CEA, CT s/p stent placement, CVA ( residual left sided weakness), BRCA+ Breast Ca., PE, and DVTs ( on Eliquis ), who presents with back pain. Patient reports acute onset left sided back pain beginning earlier today ( this AM). Patient poor historian and unable to describe pain. Reports dysuria of unknown duration, with absent hematuria. Pain worse with touch and movement. No postprandial pain. Denies N/V, F/C, CP, SOB, abdominal pain, incontinence, diarrhea, lightheadedness, weakness, LOC, sensory changes. Denies alcohol or tobacco use. PMD Dr. Best. <Phil Gomez - Last Filed: 10/29/17 23:15> <Gutierrez Padilla - Last Filed: 10/30/17 01:19> - General Chief Complaint: Weakness Stated Complaint: WEAKNESS Time Seen by Provider: 10/29/17 16:52 Past History - Past Medical History Cancer: Yes (both breast) Cardiac Disorders: Yes (cad) CVA: Yes (x3) COPD: No Diabetes: Yes GI Disorders: Yes (GERD) Disorders: No HTN: Yes Hypercholesterolemia: Yes Liver Disease: No Thyroid Disease: No - Surgical History Cardiac Surgery: Yes (card stent x2) Lung Surgery: No Orthopedic Surgery: Yes (R. Foot bunionectomy) - Immunization History Immunization Up to Date: Yes - Suicide/Smoking/Psychosocial Hx Smoking Status: No Smoking History: Former smoker Have you smoked in the past 12 months: No Number of Cigarettes Smoked Daily: 0 If you are a former smoker, when did you quit?: 6 YEARS AGO Information on smoking cessation initiated: No Hx Alcohol Use: No Drug/Substance Use Hx: No Substance Use Type: None Hx Substance Use Treatment: No <Phil Gomez - Last Filed: 10/29/17 23:15> <Gutierrez Padilla - Last Filed: 10/30/17 01:19> - Past Medical History Allergies/Adverse Reactions: Allergies Allergy/AdvReac Type Severity Reaction Status Date / Time No Known Drug Allergies Allergy Verified 10/29/17 16:18 Home Medications: Ambulatory Orders Docusate Sodium 100 mg PO BID 06/03/16 Multivitamin [Poly-Vitamin] 1 each PO DAILY 06/03/16 Omeprazole [Prilosec] 40 mg PO DAILY 06/03/16 Apixaban [Eliquis] 5 mg PO BID 08/25/17 Calcium Carb/Vitamin D3/Vit K1 [Calcium + D Soft Chewable Tab] 1 each PO BID 01/06 Tamoxifen Citrate 20 mg PO DAILY 08/25/17 Calcium 500Mg/Vit-D 200 Units [Os-Jose 500+D -] 1 tab PO BID tab 08/28/17 Carvedilol [Coreg -] 25 mg PO BID tablet 08/28/17 Enalapril Maleate [Vasotec -] 5 mg PO BID tablet 08/28/17 Rosuvastatin [Crestor -] 20 mg PO HS tablet 08/28/17 Spironolactone [Aldactone -] 25 mg PO DAILY tablet 08/28/17 Review of Systems - Review of Systems Comments:: 10/29/17 17:11 GENERAL/CONSTITUTIONAL: No fever or chills. No weakness. HEAD, EYES, EARS, NOSE AND THROAT: No change in vision. No ear pain or discharge. No sore throat.- CARDIOVASCULAR: No chest pain or shortness of breath RESPIRATORY: No cough, wheezing, or hemoptysis. GASTROINTESTINAL: No nausea, vomiting, diarrhea or constipation. GENITOURINARY: + Left sided flank pain and dysuria. frequency, or change in urination. MUSCULOSKELETAL: + Back pain. No joint or muscle swelling or pain. No neck or back pain. SKIN: No rash NEUROLOGIC: No headache, vertigo, loss of consciousness, or change in strength/ sensation. ENDOCRINE: No increased thirst. No abnormal weight change HEMATOLOGIC/LYMPHATIC: No anemia, easy bleeding, or history of blood clots. ALLERGIC/IMMUNOLOGIC: No hives or skin allergy. <Phil Gomez - Last Filed: 10/29/17 23:15> *Physical Exam - Vital Signs Last Vital Signs Temp Pulse Resp BP Pulse Ox 97.5 F L 81 16 145/55 100 10/29/17 16:00 10/29/17 16:00 10/29/17 16:00 10/29/17 16:00 10/29/17 16:00 - Physical Exam Comments: 10/29/17 17:12 GENERAL: Writhing in pain. Frequent turning. Awake, alert, and oriented x 2 to person, and place. HEAD: No signs of trauma, normocephalic, atraumatic EYES: PERRLA, EOMI, sclera anicteric, conjunctiva clear ENT: Hearing grossly normal, nares patent, oropharynx clear without exudates. Moist mucosa NECK: Normal ROM, supple, no lymphadenopathy, JVD, or masses LUNGS: No distress, speaks full sentences, clear to auscultation bilaterally HEART: Regular rate and rhythm, normal S1 and S2, no murmurs, rubs or gallops, peripheral pulses normal and equal bilaterally. ABDOMEN:+ Left sided flank ttp or CVA ttp. Soft, nontender, normoactive bowel sounds. No guarding, no rebound. No masses EXTREMITIES : Normal inspection, Normal range of motion, no edema. No clubbing or cyanosis. NEUROLOGICAL:Decreased left sided strength. Cranial nerves II through XII grossly intact. SKIN: Warm, Dry, normal turgor, no rashes or lesions noted. <Phil Gomez - Last Filed: 10/29/17 23:15> - Vital Signs Last Vital Signs Temp Pulse Resp BP Pulse Ox 100.1 F H 84 16 145/55 100 10/29/17 18:46 10/29/17 18:46 10/29/17 16:00 10/29/17 16:00 10/29/17 16:00 <Gutierrez Padilla - Last Filed: 10/30/17 01:19> Procedures - Lumbar Puncture Indication: AMS CT Scan: Yes Betadine Prep: Yes Position: Left lateral decubitus Site: L4-L51 Local Anesthesia: 1% Lidocaine with epi Volume(ml): 2 Lumbar Puncture Kit: Adult Traumatic Tap: No Tubes Obtained: 4 Clear Fluid: Yes Complications: No <Phil Gomez - Last Filed: 10/29/17 23:15> ED Treatment Course - LABORATORY CBC & Chemistry Diagram: 10/29/17 18:00 10/29/17 20:00 <Phil Gomez - Last Filed: 10/29/17 23:15> - LABORATORY CBC & Chemistry Diagram: 10/29/17 18:00 10/29/17 20:00 - ADDITIONAL ORDERS Additional order review: Laboratory Results 10/29/17 10/29/17 10/29/17 23:00 22:54 20:00 PT with INR INR Sodium 144 Potassium 3.8 Chloride 111 H Carbon Dioxide 27 Anion Gap 6 L BUN 19 H Creatinine 1.2 H Creat Clearance w eGFR 44.54 Random Glucose 102 Lactic Acid Calcium 8.7 Total Bilirubin 0.4 D AST 14 L ALT 20 Alkaline Phosphatase 42 L Total Protein 6.2 L Albumin 3.5 Urine Color Urine Appearance Urine pH Ur Specific Carlos Urine Protein Urine Glucose (UA) Urine Ketones Urine Blood Urine Nitrite Urine Bilirubin Urine Urobilinogen Ur Leukocyte Esterase CSF Appearance Hazy Slightly hazy CSF Color Red Light yellow CSF WBC 30 1 CSF RBC 69195 1011.00 CSF Neutrophils 78 No Result Required. CSF Lymphocytes 19 CSF Monocytes 1 CSF Eosinophils 2 CSF Basophils No Result Required. CSF Macrophages No Result Required. CSF Plasma Cells No Result Required. CSF Diff Comment No Result Required. CSF Comment Tube # 1 CSF Glucose 70 CSF Total Protein 51 H Blood Type Antibody Screen 10/29/17 10/29/17 10/29/17 20:00 20:00 19:30 PT with INR INR Sodium Potassium Chloride Carbon Dioxide Anion Gap BUN Creatinine Creat Clearance w eGFR Random Glucose Lactic Acid 1.0 Calcium Total Bilirubin AST ALT Alkaline Phosphatase Total Protein Albumin Urine Color Ltyellow Urine Appearance Clear Urine pH 5.0 Ur Specific Carlos 1.018 Urine Protein Negative Urine Glucose (UA) Negative Urine Ketones Trace H Urine Blood Negative Urine Nitrite Negative Urine Bilirubin Negative Urine Urobilinogen Negative Ur Leukocyte Esterase Negative CSF Appearance CSF Color CSF WBC CSF RBC CSF Neutrophils CSF Lymphocytes CSF Monocytes CSF Eosinophils CSF Basophils CSF Macrophages CSF Plasma Cells CSF Diff Comment CSF Comment CSF Glucose CSF Total Protein Blood Type A POSITIVE Antibody Screen Negative 10/29/17 10/29/17 10/29/17 18:00 18:00 18:00 PT with INR 15.80 H INR 1.40 H Sodium Cancelled Potassium Cancelled Chloride Cancelled Carbon Dioxide Cancelled Anion Gap Cancelled BUN Cancelled Creatinine Cancelled Creat Clearance w eGFR Cancelled Random Glucose Cancelled Lactic Acid 1.5 Calcium Cancelled Total Bilirubin Cancelled AST Cancelled ALT Cancelled Alkaline Phosphatase Cancelled Total Protein Cancelled Albumin Cancelled Urine Color Urine Appearance Urine pH Ur Specific Carlos Urine Protein Urine Glucose (UA) Urine Ketones Urine Blood Urine Nitrite Urine Bilirubin Urine Urobilinogen Ur Leukocyte Esterase CSF Appearance CSF Color CSF WBC CSF RBC CSF Neutrophils CSF Lymphocytes CSF Monocytes CSF Eosinophils CSF Basophils CSF Macrophages CSF Plasma Cells CSF Diff Comment CSF Comment CSF Glucose CSF Total Protein Blood Type Antibody Screen 10/29/17 20:19 Influenza Types A,B Antigen (LYN) - Final Nasopharyngeal Swab - Final 10/29/17 18:00 RBC 4.25 MCV 86.0 MCHC 31.9 L RDW 13.8 MPV 9.6 Neutrophils % 61.7 D Lymphocytes % 28.8 D Monocytes % 7.4 Eosinophils % 1.4 Basophils % 0.7 - Medications Given in the ED: ED Medications Discontinued Medications Generic Name Dose Route Start Last Admin Trade Name Lamineq PRN Reason Stop Dose Admin Acetaminophen 1,000 mg 10/29/17 18:39 10/29/17 19:17 Ofirmev Injection - IVPB 10/29/17 18:40 1,000 mg ONCE ONE Administration Sodium Chloride 1,000 mls @ 1,000 mls/hr 10/29/17 17:43 10/29/17 19:17 Normal Saline - IV 10/29/17 18:42 1,000 mls/hr ASDIR STA Administration Ceftriaxone Sodium 2 gm/ 100 mls @ 200 mls/hr 10/29/17 22:52 10/29/17 23:25 Dextrose IVPB 10/29/17 23:21 200 mls/hr ONCE ONE Administration Lorazepam 1 mg 10/29/17 20:37 10/29/17 20:45 Ativan Injection - IVPUSH 10/29/17 20:38 1 mg ONCE ONE Administration Lorazepam 1 mg 10/30/17 00:44 10/30/17 01:03 Ativan Injection - IVPUSH 10/30/17 00:45 1 mg ONCE ONE Administration Midazolam HCl 2 mg 10/29/17 22:15 10/29/17 22:16 Versed - IVPUSH 10/29/17 22:16 2 mg NOW ONE Administration Midazolam HCl 2 mg 10/29/17 22:30 10/29/17 22:30 Versed - IVPUSH 10/29/17 22:31 2 mg NOW ONE Administration Midazolam HCl 2 mg 10/29/17 23:45 10/29/17 22:40 Versed - IVPUSH 10/29/17 23:46 2 mg NOW ONE Administration <Gutierrez Padilla - Last Filed: 10/30/17 01:19> Medical Decision Making - Medical Decision Making 10/29/17 17:53 67 yo F with h/o HTN, HLD, NIDDM, CKD, CAD s/p R CEA, CT s/p stent placement, CVA, BRCA+ Breast Ca ( Tamoxifen) , PE, and DVTs, who presents with acute onset left sided back pain beginning earlier today ( this AM), AMS, and rectal temp in ED 101.0. Reports dysuria of unknown duration, with absent hematuria. Does not recall last chemotherapy treatment. Denies N/V, F/C, CP, SOB, abdominal pain, postprandial pain, incontinence, change in UOP, diarrhea, lightheadedness , weakness, LOC, sensory changes. Denies alcohol or tobacco. Physical exam with left sided ttp and frequent repositioning. AMS. Rectal Temp 100.1. Patient with s/s of sepsis. Patient flank pain and complaint of dysuria concerning for neprholithiasis vs. pyelonephritis. ED Course: CBC, CMP, UA, Cardiac Pr., Lactic Acid, Bcx, Ucx EKG, CXR, CT AP Tylenol 1000 mg 10/29/17 18:58 EKG: NSR with PVC's, biphasic P waves. Absent STD, or JACKI. Normal interval duration. No significant change from previous EKG ( 08/25/17). 10/29/17 19:54 CBC: Unremarkable 10/29/17 21:07 CR: 1.2 ( 1.3 Baseline) UA: Unremarkable 10/29/17 22:02 CT HEAD: No significant interval change from 10/09/[address] No acute intracranial hemorrhage, mass effects or hydrocephalus. Chronic infarcts and mild to moderate microvascular ischemic changes as described above, unchanged CT AP : 1. No evidence of urinary tract calculus. No obstructive uropathy. 2. No evidence of bowel obstruction, diverticulitis or appendicitis. Appendix is not visualized. 3. Hepatic steatosis. 4. Incompletely imaged, small pericardial effusion. At least moderate coronary artery calcific atherosclerosis. Aortic valve calcifications. Please correlate with echocardiogram for possibility of aortic stenosis. CXR: No evidence of acute infiltrate, pulmonary vascular congestion or pleural effusion. 10/29/17 21:57 Called Ms. Kimberly Snyder ( Next of Kin) to obtain consent for LP. 10/29/17 22:08 Called Ms. Hilaria Snyder ( Next of Kin) to obtain consent for LP 10/29/17 23:15 LP performed. <Phil Gomez - Last Filed: 10/29/17 23:15> *DC/Admit/Observation/Transfer <Phil Gomez - Last Filed: 10/29/17 23:15> - Discharge Dispostion Admit: Yes <Gutierrez Padilla - Last Filed: 10/30/17 01:19> Diagnosis at time of Disposition: Altered mental status Qualifiers: Altered mental status type: unspecified Qualified Code(s): R41.82 - Altered mental status, unspecified - Discharge Dispostion Condition at time of disposition: Fair
[2017-10-29] MEDS ORDERED: morphine CARPU-JECT 2 MG/1 ML DISP.SYRIN IVPUSH ONE (17:43)
[2017-10-29] MEDS ORDERED: ONDANSETRON 4 MG/2 ML VIAL IVPB ONE (17:43)
[2017-10-29] MEDS ORDERED: SODIUM CHLORIDE 1,000 ML IV STA (17:43)
--- NOTE | 2017-10-29 18:07 | PDOC ---
Attending Attestation - HPI HPI: 10/29/17 19:10 The patient is a 67 year old female with significant history of hypertension, hyperlipidemia, CAD s/p MD s/p stents, DM, breast CA (?currently being treated with chemotherapy), brought in by EMS from home. On evaluation, the patient has scattered complaints left flank pain, dysuria, and diffuse abdominal pain. Remainder of history limited secondary to clinical condition. - Critical Care Time Total Critical Care Time: 55 Critical Care Statement: The care of this patient involved high complexity decision making to prevent further life threatening deterioration of the patient 's condition and/or to evaluate & treat vital organ system(s) failure or risk of failure. - Medical Decision Making 10/29/17 19:58 Documentation prepared by Etta Dumont, acting as medical lab tech instructor for Gutierrez Padilla MD. <Etta Dumont - Last Filed: 10/30/17 01:20> - Resident Resident Name: Phil Gomez - ED Attending Attestation I have performed the following: I have examined & evaluated the patient, The case was reviewed & discussed with the resident, I agree w/resident's findings & plan, Exceptions are as noted - Physicial Exam PE: 10/29/17 21:23 Patient is awake and alert, oriented to self and place; nontoxic appearing, in no distress. nc, atr, + alopecia perrla, no photophobia cta rrr sft, nt, nd no LEs edema + meningismus +left hemiparesis, left hand held in flexion at the wrist/ mcp/pip/did; no petechiae - Medical Decision Making 10/29/17 21:25 Patient 67-year-old female with multiple comorbidities, history of breast CA, last chemotherapy in August 2017 who presents to the ER with left flank and abd pain. In the ER, patient is nontoxic appearing, with rectal temperature 100.1, without evidence of meningismus, clear lungs and no evidence of pyuria on the UA. There is no evidence of leukocytosis and chest x-ray reveals no evidence of infiltrate or effusion. Patient required administration of sedation before CT of head was obtained due to lack of cooperation. Will obtain an LP to rule out meningitis/encephalitis; Will admit inpatient to obtain for MRI to rule out Meningeal carcinomatosis. 10/29/17 22:[address] of head reveals no evidence of acute intracranial pathology. Attempts to contact patient's next of kin to obtaining consent for LP have been unsuccessful. pt on eliquis, but given the seriousness of potential meningitis, will perform LP, and will perform frequent neuro checks to check for neuro eficit development.Given the severity of the patient's condition, we'll obtain 2 physician consent and will obtain LP to rule out meningitis. 10/29/17 23:09 Patient required 6 mg of Versed for sedation noted to perform the lumbar puncture please patient tolerated procedure well. 5 mL of CSF was obtained ( initially blood-tinged, cleared at tube 4). Will place on pulse oximeter. Will observe. 10/29/17 23:51 Patient moving right lower extremity without difficulty. Patient try to get out of bed. Patient screaming incoherently. Patient try to remove the IV from the arm. Will place and wrist restraints for prevention of self-harm. 10/30/17 01:16 Patient remains agitated, trying to remove the IV and get out of bed, does not follow commands and requires sedation with Ativan to prevent self-harm. LP results show no evidence of meningitis at this time. [facility] admit to [facility] for further evaluation by hematology/oncology and neurology as as well as MRI of brain to evaluate for meningeal carcinomatosis. 10/30/17 02:22 pt noted to be moving LEs spont. <Gutierrez Padilla - Last Filed: 10/30/17 02:22>
[2017-10-29] MEDS ORDERED: ACETAMINOPHEN 1000 MG/100 ML VIAL (NON FORMULARY) IVPB ONE (18:39)
[2017-10-29] MEDS ORDERED: ACETAMINOPHEN INJECTION 100 ML IVPB ONE (19:05)
[2017-10-29 19:13] LABS: INR 1.4 (0.82-1.09); PROTHROMBIN TIME (PATIENT) 15.8 SEC (9.98-11.88)
[2017-10-29 19:22] LABS: BASO % 0.7 % (0-2.0); EOS % 1.4 % (0-4.5); HEMATOCRIT 36.5 % (32.4-45.2); HEMOGLOBIN 11.6 GM/dL (10.7-15.3); LYMPH % 28.8 % (8-40); MCH 27.4 pg (25.7-33.7); MCHC 31.9 g/dl (32.0-36.0); MEAN PLT VOLUME 9.6 fl (7.5-11.1); MONO % 7.4 % (3.8-10.2); NEUT % 61.7 % (42.8-82.8); PLATELET COUNT 244 K/MM3 (134-434); RBC 4.25 M/mm3 (3.60-5.2); RDW 13.8 % (11.6-15.6); WHITE BLOOD COUNT 7.8 K/mm3 (4.0-10.0)
[2017-10-29 20:30] LABS: URINE APPEARANCE CLEAR; URINE BILIRUBIN NEGATIVE (NEGATIVE); URINE BLOOD NEGATIVE (NEGATIVE); URINE COLOR LTYELLOW; URINE GLUCOSE (UA) NEGATIVE (NEGATIVE); URINE KETONE TRACE (NEGATIVE); URINE LEUK ESTERASE NEGATIVE (NEGATIVE); URINE NITRITE NEGATIVE (NEGATIVE); URINE PROTEIN NEGATIVE (NEGATIVE); URINE UROBILINOGEN NEGATIVE mg/dL (0.2-1.0)
[2017-10-29] MEDS ORDERED: LORazepam 2 MG/ML SDV VIAL ONE (20:38)
[2017-10-29 20:39] LABS: ALBUMIN 3.5 g/dl (3.4-5.0); ALK PHOS 42 U/L (45-117); ANION GAP 6 (8-16); BILIRUBIN,TOTAL 0.4 mg/dL (0.2-1.0); BLOOD UREA NITROGEN 19 mg/dL (7-18); CALCIUM 8.7 mg/dL (8.5-10.1); CHLORIDE 111 mmol/L (98-107); CO2 27 mmol/L (21-32); CREATININE 1.2 mg/dL (0.55-1.02); GLUCOSE,RANDOM 102 mg/dL (74-106); POTASSIUM 3.8 mmol/L (3.5-5.1); SGOT/AST 14 U/L (15-37); SGPT/ALT 20 U/L (12-78); SODIUM 144 mmol/L (136-145); TOT PROT 6.2 g/dl (6.4-8.2)
[2017-10-29] MEDS ORDERED: LIDOCAINE 1%/EPI 1:100000 (20 ML MULTI DOSE VIAL) ONE (21:45)
[2017-10-29] MEDS ORDERED: MIDAZOLAM HCL 2 MG/2 ML SINGLE DOSE VIAL IVPUSH ONE ×3 (22:15→23:45)
[2017-10-29] MEDS ORDERED: MIDAZOLAM HCL 2 MG/2 ML SINGLE DOSE VIAL ONE ×3 (22:16→22:37)
[2017-10-29] MEDS ORDERED: CEFTRIAXONE 2 GM in DEXTROSE 5%-WATER - 100 ML IVPB ONE (22:52)
[2017-10-29] MEDS ORDERED: CEFTRIAXONE 2 GM/100 ML BAG IVPB ONE (23:02)
[2017-10-29 23:39] LABS: GLUCOSE,CSF 70 mg/dL (50-80)
[2017-10-30 00:15] LABS: CSF APPEARANCE SLIGHTLY HAZY; CSF COLOR LIGHT YELLOW
[2017-10-30 00:16] LABS: CSF APPEARANCE HAZY; CSF COLOR RED
[2017-10-30 00:17] LABS: CSF WBC 30
[2017-10-30] MEDS ORDERED: LORazepam 2 MG/ML SDV VIAL ONE (00:46)
--- NOTE | 2017-10-30 01:04 | PN ---
Teaching Attending Note Name of Resident: Ladi Yates ATTENDING PHYSICIAN STATEMENT I saw and evaluated the patient. I reviewed the resident's note and discussed the case with the resident. I agree with the resident's findings and plan as documented. SUBJECTIVE: 67 yo F with Pmhx of CAD, [place] with stents x2 , CVA, PE, Breast CA s/p mastectomy , L. Lung sx, who presents with left flank pain and dysuria. Upona rirval to ED pt. became increasingly dissoriented. Pt. is poor historian at bedside. OBJECTIVE: Physical: VS: Vital Signs Period Temp Pulse Resp BP Sys/Mccollum Pulse Ox Last 24 Hr 97.5 F-100.1 F 81-84 16 145/55 100 GEN: NAD, AA0X0, Resting in bed HEENT: NCAT, PERRL, throat difficult to examine due to non-cooperation CARD: RRR S1, S2 RESP: CTAB ABD: BSX4, NTD to palpation EXT: - C/C/E NEURO: Pt. unable to follow any commands. CBCD WBC 7.8 K/mm3 (4.0-10.0) D 10/29/17 18:00 RBC 4.25 M/mm3 (3.60-5.2) 10/29/17 18:00 Hgb 11.6 GM/dL (10.7-15.3) 10/29/17 18:00 Hct 36.5 % (32.4-45.2) 10/29/17 18:00 MCV 86.0 fl (80-96) 10/29/17 18:00 MCHC 31.9 g/dl (32.0-36.0) L 10/29/17 18:00 RDW 13.8 % (11.6-15.6) 10/29/17 18:00 Plt Count 244 K/MM3 (134-434) 10/29/17 18:00 MPV 9.6 fl (7.5-11.1) 10/29/17 18:00 CMP Sodium 144 mmol/L (136-145) 10/29/17 20:00 Potassium 3.8 mmol/L (3.5-5.1) 10/29/17 20:00 Chloride 111 mmol/L (98-107) H 10/29/17 20:00 Carbon Dioxide 27 mmol/L (21-32) 10/29/17 20:00 Anion Gap 6 (8-16) L 10/29/17 20:00 BUN 19 mg/dL (7-18) H 10/29/17 20:00 Creatinine 1.2 mg/dL (0.55-1.02) H 10/29/17 20:00 Creat Clearance w eGFR 44.54 (>60) 10/29/17 20:00 Random Glucose 102 mg/dL (74-106) 10/29/17 20:00 Calcium 8.7 mg/dL (8.5-10.1) 10/29/17 20:00 Total Bilirubin 0.4 mg/dL (0.2-1.0) D 10/29/17 20:00 AST 14 U/L (15-37) L 10/29/17 20:00 ALT 20 U/L (12-78) 10/29/17 20:00 Alkaline Phosphatase 42 U/L (45-117) L 10/29/17 20:00 Total Protein 6.2 g/dl (6.4-8.2) L 10/29/17 20:00 Albumin 3.5 g/dl (3.4-5.0) 10/29/17 20:00 CXR: No Acute Process EKG: NSR Urine Test Results Urine Color Ltyellow 10/29/17 20:00 Urine Appearance Clear 10/29/17 20:00 Urine pH 5.0 (5.0-8.0) 10/29/17 20:00 Ur Specific [place] 1.018 (1.001-1.035) 10/29/17 20:00 Urine Protein Negative (NEGATIVE) 10/29/17 20:00 Urine Glucose (UA) Negative (NEGATIVE) 10/29/17 20:00 Urine Ketones Trace (NEGATIVE) H 10/29/17 20:00 Urine Blood Negative (NEGATIVE) 10/29/17 20:00 Urine Nitrite Negative (NEGATIVE) 10/29/17 20:00 Urine Bilirubin Negative (NEGATIVE) 10/29/17 20:00 Ur Leukocyte Esterase Negative (NEGATIVE) 10/29/17 20:00 CT HEAD- No acute intercranial hemmorage, mass effect or hydrocephalus Chronic Infarcts and mild-mod. microvascular ischemic changes ABD/PELVIS CT: Hepatic Steatosis, Small pericardial effusion. Mod. coronary artery calcific atheroscleoris ASSESSMENT AND PLAN: SUBJECTIVE: 67 yo F with Pmhx of CAD, [place] with stents x2 , CVA, PE, Breast CA s/p mastectomy , L. Lung sx, who presents with AMS 1.) AMS- DDx: Acute Metabolic Encephalopathy/ Brain carcinamatosis/Viral encephalitis - Check. TSH, B12, Folate, Ucx, RPR - PCR for HSV - MRI Brain wo Con - Cook Cx - Neuro consult - NPO - Speech & Swallow Consult - Hold Eliquis 2.) CKD? - CR base 1.3 - Gentle IVF 3.) Hx. OF DVT/PE - Hold Eliquis for now until MRI 4.) Dvt Ppx - Scds
--- NOTE | 2017-10-30 01:10 | HP ---
CHIEF COMPLAINT: AMS PCP: HISTORY OF PRESENT ILLNESS: 67 y/o F with PMH HTN, DM, CKD, CAD s/p R carotid endarterectomy, [place] s/p stent placement, CVA (residual L sided weakness), BRCA+ Breast CA (on Tamoxifen), hx PE, DVT (on Eliquis), past admission for back pain- dx home on Percocet 2015, who presents to the ED with 10/10 L sided paraspinal pain, dysuria for the past day. During exam, pt thrashing around in bed, moaning in pain. Unable to describe her symptoms. Only states that she has a "bad headache," and is seen to have photophobia during pupillary examination. Pt only able to nod no to questions; denies fever, chills, chest or abdominal pain, or changes in bowel function. ER course was notable for: (1) Tmax 100.1F (2) Received rocephin 2gm x 1 (3) Ativan, versed Recent Travel: none PAST MEDICAL HISTORY: HTN, DM, CKD, CAD s/p R carotid endarterectomy, [place] s/p stent placement, CVA (residual L sided weakness), BRCA+ Breast CA (on Tamoxifen) , hx PE, DVT (on Eliquis) PAST SURGICAL HISTORY: unable to obtain; pt altered Social History: Smoking: see above Alcohol: Drugs: Family History: unable to obtain, see above Allergies No Known Drug Allergies Allergy (Verified 10/29/17 16:18) HOME MEDICATIONS: Home Medications Medication Instructions Recorded Docusate Sodium 100 mg PO BID 06/03/16 Multivitamin [Poly-Vitamin] 1 each PO DAILY 06/03/16 Omeprazole [Prilosec] 40 mg PO DAILY 06/03/16 Apixaban [Eliquis] 5 mg PO BID 08/25/17 Calcium Carb/Vitamin D3/Vit K1 1 each PO BID 08/25/17 [Calcium + D Soft Chewable Tab] Tamoxifen Citrate 20 mg PO DAILY 08/25/17 Calcium 500Mg/Vit-D 200 Units 1 tab PO BID tab 08/28/17 [Os-Jose 500+D -] Carvedilol [Coreg -] 25 mg PO BID tablet 08/28/17 Enalapril Maleate [Vasotec -] 5 mg PO BID tablet 08/28/17 Rosuvastatin [Crestor -] 20 mg PO HS tablet 08/28/17 Spironolactone [Aldactone -] 25 mg PO DAILY tablet 08/28/17 REVIEW OF SYSTEMS CONSTITUTIONAL: Absent: fever, chills, diaphoresis, generalized weakness, malaise, loss of appetite, weight change HEENT: Absent: rhinorrhea, nasal congestion, throat pain, throat swelling, difficulty swallowing, mouth swelling, ear pain, eye pain, visual changes CARDIOVASCULAR: Absent: chest pain, syncope, palpitations, irregular heart rate, lightheadedness , peripheral edema RESPIRATORY: Absent: cough, shortness of breath, dyspnea with exertion, orthopnea, wheezing, stridor, hemoptysis GASTROINTESTINAL: Absent: abdominal pain, abdominal distension, nausea, vomiting, diarrhea, constipation, melena, hematochezia GENITOURINARY: +dysuria Absent: frequency, urgency, hesitancy, hematuria, flank pain, genital pain MUSCULOSKELETAL: +back pain Absent: myalgia, arthralgia, joint swelling, neck pain SKIN: Absent: rash, itching, pallor HEMATOLOGIC/IMMUNOLOGIC: Absent: easy bleeding, easy bruising, lymphadenopathy, frequent infections ENDOCRINE: Absent: unexplained weight gain, unexplained weight loss, heat intolerance, cold intolerance NEUROLOGIC: +photophobia, headache, AMS Absent: focal weakness or paresthesias, dizziness, unsteady gait, seizure, bladder or bowel incontinence PSYCHIATRIC: Absent: anxiety, depression, suicidal or homicidal ideation, hallucinations. PHYSICAL EXAMINATION Vital Signs 10/29/17 10/29/17 16:00 18:46 Temperature 97.5 F L 100.1 F H Pulse Rate 81 84 Respiratory 16 Rate Blood Pressure 145/55 O2 Sat by Pulse 100 Oximetry (%) GENERAL: Pt with eyes closed, altered. Thrashing on bed. In distress HEAD: Normal with no signs of trauma. EYES: constricted pupils. anicteric sclera. No lid lag. EARS, NOSE, THROAT: Ears normal, nares patent, oropharynx clear without exudates. NECK: Normal range of motion, supple. Unable to assess rigidity as pt does not respond to commands LUNGS: crackles and rhonchi appreciated b/l HEART: Regular rate and rhythm, normal S1 and S2 without murmur, rub or gallop. ABDOMEN: L flank- TTP, not distended, +guarding. no rebound, no masses. LOWER EXTREMITIES: 2+ posterior tibial pulses, warm, well-perfused. No calf tenderness. No peripheral edema. NEUROLOGICAL: unable to assess as pt does not follow commands. however campaign marketing manager 2- 12 appear to be grossly intact. Laboratory Results 10/29/17 10/29/17 10/29/17 18:00 20:00 20:00 WBC 7.8 D Hgb 11.6 Hct 36.5 Plt Count 244 Chloride 111 H Anion Gap 6 L BUN 19 H Creatinine 1.2 H Alkaline Phosphatase 42 L Total Protein 6.2 L Urine Ketones Trace H 10/29/17 10/29/17 10/29/17 20:00 22:54 23:00 Urine Ketones CSF Color Light yellow CSF Neutrophils No Result Required. CSF Lymphocytes 19 CSF Monocytes 1 CSF Eosinophils 2 CSF Total Protein 51 H Benzodiazepines Screen RPR Titer Pending 10/30/17 01:10 CSF Total Protein Opiates Screen Negative Methadone Screen Negative Barbiturate Screen Negative Phencyclidine Screen Negative Ur Amphetamines Screen Negative MDMA (Ecstasy) Screen Negative Benzodiazepines Screen Negative Cocaine Screen Negative U Marijuana (THC) Screen Negative Microbiology 10/29/17 20:19 Nasopharyngeal Swab Influenza Types A,B Antigen (LYN) - Final 10/29/17 20:19 Nasopharyngeal Swab - Final -Blood cx - pending -Urine cx- pending -LP: CSF cx, gram stain- pending Radio CXR: without infiltrates, or signs of acute path Abd/pelvis CT: no UT calculus, no obstructive uropathy, no bowel obstruction or diverticula Head CT: no significant changes, no hemorrhage, chronic infarcts and mid-mod microvascular changes ASSESSMENT/PLAN: 67 y/o F with PMH HTN, DM, CKD, CAD s/p R carotid endarterectomy, [place] s/p stent placement, CVA (residual L sided weakness), BRCA+ Breast CA (on Tamoxifen), hx PE, DVT (on Eliquis), past admission for back pain- dx home on Percocet 2015, who presents to the ED with 10/10 L sided paraspinal pain, dysuria for the past day. Pt admitted to med-surg. #AMS 2/2 ?metabolic encephalopathy, ?Viral meningitis, ?Encephalitis ?meningeal carcinomatosis 2/2 breast CA -Thus far, no clear etiology. Pt with paraspinal back pain, MONTIEL, photophobia -without septic picture, low grade temp only. Without white count. However, f/u urine cx, blood cx, CSF cx, gram stain, rapid flu, fungitel, lactic acid -Utox (-) -Initial head CT (-), f/u Brain MRI w/contrast. More sensitive -Pt prophylactically started on acyclovir 900 mg IVPB x 1 in case of herpetic encephalitis -F/u RPR, HSV1,2 -porphobilinogen - r/o AIP -F/u HIV 4th gen -R/o reversible causes TSH, B12, Folate -gentle hydration -ID consult- Dr. Chand -Neuro consult- Dr. Maki #Breast CA -Holding Tamoxifen citrate 20mg PO qd -Heme/onc consult: Dr. Cummins #IDDM -ISS ACHS -BGM #HTN- currently controlled -Holding enalapril 5mg BID, aldactone 25mg PO qd, coreg 25mg PO BID #HLD -Holding crestor 20mg PO qd #PPX -hx DVT: Holding eliquis 5mg PO BID - awaiting MRI brain result -GI ppx: holding omeprazole 40mg qd #F/E/N IV NS 83 cc/hr Monitor electrolytes NPO, risk of aspiration. follow speech & swallow consult #Dispo med-surg note: most of pt's meds held d/t AMS. please reassess in AM. if BP elevated, can add standing dose of IV lopressor. Thank you Visit type - Emergency Visit Emergency Visit: Yes ED Registration Date: 10/30/17 Care time: The patient presented to the Emergency Department on the above date and was hospitalized for further evaluation of their emergent condition. - New Patient This patient is new to me today: Yes Date on this admission: 10/30/17 - Critical Care Critical Care patient: No
[2017-10-30 01:32] LABS: COCAINE, UR NEGATIVE ng/ml (CUTOFF=300); METHADONE, UR NEGATIVE ng/ml (CUTOFF=300); OPIATES, URI NEGATIVE ng/ml (CUTOFF=300); PHENCYCLIDINE,URINE NEGATIVE ng/ml (CUTOFF=25); URINE AMPHETAMINES NEGATIVE ng/ml (CUTOFF=500); URINE BARBITURATES NEGATIVE ng/ml (CUTOFF=200); URINE BENZODIAZEPINES NEGATIVE ng/ml (CUTOFF=200)
[2017-10-30] MEDS: SODIUM CHLORIDE 1,000 ML IV SCH ×2 (02:58→22:21)
[2017-10-30] MEDS ORDERED: ACYCLOVIR INJECTION 900 MG in DEXTROSE 5%-WATER - 250 ML IVPB ONE (03:00)
[2017-10-30 04:20] VITALS: BMI 24.4
[2017-10-30] MEDS: INSULIN SLIDING SCALE (NOVOLOG) 1 VIAL SQ SCH ×4 (06:37→21:23)
[2017-10-30 07:39] LABS: BASO % 0.7 % (0-2.0); HEMATOCRIT 33.8 % (32.4-45.2); HEMOGLOBIN 10.7 GM/dL (10.7-15.3); MCH 27.4 pg (25.7-33.7); MCHC 31.7 g/dl (32.0-36.0); MEAN CELL VOLUME 86.7 fl (80-96); MEAN PLT VOLUME 9.6 fl (7.5-11.1); NEUT % 55.3 % (42.8-82.8); PLATELET COUNT 187 K/MM3 (134-434); RDW 13.9 % (11.6-15.6); WHITE BLOOD COUNT 6.6 K/mm3 (4.0-10.0)
[2017-10-30 08:42] LABS: ANION GAP 9 (8-16); BLOOD UREA NITROGEN 16 mg/dL (7-18); CALCIUM 8.6 mg/dL (8.5-10.1); CHLORIDE 110 mmol/L (98-107); CO2 26 mmol/L (21-32); GLUCOSE,RANDOM 115 mg/dL (74-106); SODIUM 145 mmol/L (136-145)
--- NOTE | 2017-10-30 11:35 | PN ---
Progress Note (short form) - Note Progress Note: ID Consult dictated 67 y/o female PMH breast ca admitted with L flank pain, dysuria. Febrile and confused in ER. LP ?traumatic tap 30WBC Cultures pending Pending sepsis workuo empiric ceftriaxone/ vancomycin/ ACV CSF HSV PCR
--- NOTE | 2017-10-30 12:06 | EKG ---
Test Reason : Blood Pressure : / mmHG Vent. Rate : 067 BPM Atrial Rate : 067 BPM P-R Int : 134 ms QRS Dur : 090 ms QT Int : 364 ms P-R-T Axes : 063 003 021 degrees QTc Int : 384 ms SINUS RHYTHM WITH OCCASIONAL PREMATURE VENTRICULAR COMPLEXES OTHERWISE NORMAL ECG WHEN COMPARED WITH ECG OF 25-AUG-2017 13:52, CRITERIA FOR SEPTAL INFARCT ARE NO LONGER PRESENT Confirmed by REMI JACKSON, PIERCE ([id number]) on 10/30/2017 12:06:42 PM Referred By: Confirmed By:PIERCE KHALIL MD
--- NOTE | 2017-10-30 12:21 | CONSULT ---
Admitting History and Physical - Primary Care Physician PCP: Shreya Best - Admission History of Present Illness: 67 y/o F with PMH HTN, DM, CKD, CAD s/p R carotid endarterectomy, [place] s/p stent placement, CVA (residual L sided weakness), BRCA+ Breast CA (on Tamoxifen), hx PE, DVT (on Eliquis), past admission for back pain- dx home on Percocet 2015, who presents to the ED with 10/10 L sided paraspinal pain, dysuria for the past day. Selected Entries 10/29/17 10/29/17 10/30/17 16:00 18:46 02:30 Breakfast Temperature 97.5 F L 100.1 F H 98.6 F 10/30/17 10/30/17 10/30/17 04:11 09:46 10:15 Breakfast NPO Temperature 97.8 F 97.8 F Laboratory Tests 10/29/17 10/30/17 18:00 06:00 WBC 7.8 D 6.6 w/u in progress. This is my first consult with this pt. Pt does not recall admission, asking what happened,asking "did I fall?". She is fully oriented for me to place, age, date, etc. Pt reports neck and back pain, and right UE pain upon elevation. Pt reports old CVA affecting left side. History Source: Patient, Medical Record Limitations to Obtaining History: No Limitations - Past Medical History CREEL HAND: Yes: CVA Cardiovascular: Yes: CAD, Deep Vein Thrombosis, HTN, Hyperlipdemia Pulmonary: Yes: Pulmonary Embolus ...: No Heme/Onc: Yes: Cancer (Breast CA) - Past Surgical History Past Surgical History: Yes: Stent - Smoking History Smoking history: Former smoker Have you smoked in the past 12 months: No Aproximately how many cigarettes per day: 0 If you are a former smoker, when did you quit?: 6 YEARS AGO - Alcohol/Substance Use Hx Alcohol Use: No History of Substance Use: reports: None - Social History 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 History - Admission Reason For Visit: ALTERED MENTAL STATUS - Diagnostics X-ray: Report Reviewed CT Scan: Report Reviewed - General Mental Status: Alert and Oriented, Awake and Alert, Able to Follow Commands Attention: Intact Ability to Follow Directions: Good Head/Neck Control: Needs Assist (pain) - Hearing Hearing: Normal Speech Evaluation - Communication Primary Language: WELSH Communication: Yes: Dysarthria (mild) - Speech Production Able to Make Needs Known: Yes: WNL Intelligibility: Yes: WNL, Mildly Impaired - Speech Characteristics Voice Loudness: Normal Voice Pitch: Yes: Normal Voice Phonatory-based Quality: Yes: Harsh, Dysphonia (mild) Speech Clarity: < 100% Nasal Resonance: Normal Articulation: Yes: Imprecise (mild) Voice, Other Observations: Yes: Disordered Intonation (dysprosody inconsistently ) - Language/Auditory Comprehension Follows: Yes: 1 Stage Simple Commands Observation: Able to respond to yes/no queries: Yes, Yes/No Confusion: No, Comprehends Conversational Speech: Yes - Language/Verbal Expression Able to Respond to Simple Queries: Yes: WNL Able to Communicate Wants and Needs: Yes: WNL Functional Communication Status: Yes: WNL - Swallow Evaluation/Bedside Assessment Current Nutritional Intake: NPO Oral Secretions: Yes: WFL Dentition: Yes: Adequate Facial Symmetry at Rest: Facial Droop Right Facial Symmetry on Retraction: Symmetrical Against Resistance Opening: Normal Against Resistance Closing: Normal Pucker Lips: Normal Smile: Droops Right (possibly. dyscoordination of facial muscles? Pt reports old left side weakness.) Lingual Movement: Symmetric Lingual Speed of Movement: Normal Lingual Movement Strgth Against Opposition: Normal Velopharyngeal Movement: Normal Laryngeal Movement: Able to Palpate Rate of Intake: WFL Bolus Size: WFL Chewing: WFL Oral Prep Time: WFL A-P Transit: WFL Pocketing: None Timing of Swallow: WFL Coughing/Throat Clear: No Change in Voice: No Recommendations - Speech Evaluation, Impression/Plan Impression: Poor recall of yesterday's event, but fully oriented x 3 for me. c/ o neck,back, right UE pain.Swallowing intact. - Disposition Discharge to: To be Determined - Dysphagia Impressions/Plan Swallowing Skills: WF Dysphagia Impressions: No Impairment *Silent aspiration: cannot be R/O at bedside - Recommendations Diet Consistency: Regular (soft) Medication Administration: Whole with water Liquids: Thin Liquids
[2017-10-30] MEDS: CEFTRIAXONE IN IS-OSM DEXTROSE 2 GM/50 ML BAG IVPB SCH ×2 (12:30→21:23)
[2017-10-30] MEDS: ACYCLOVIR INJECTION 750 MG in DEXTROSE 5%-WATER - 100 ML IVPB SCH ×2 (13:00→18:23)
--- NOTE | 2017-10-30 13:26 | CONS ---
INFECTIOUS DISEASE CONSULTATION DATE OF CONSULTATION: 10/30/2017 REASON FOR CONSULTATION: The patient is a 67-year-old female who is evaluated for sepsis and possible meningitis. HISTORY OF PRESENT ILLNESS: History was obtained from the chart as well as the patient. The patient does not give a reliable history. She presented to the emergency room with complaints of left flank and back pain associated with dysuria for 1 day prior to admission. In the emergency room, she was noted to have fever of 101 and confusion. A lumbar puncture was performed. The spinal fluid was described as hazy and later red. Initial tap showed 1 white cell with 1011 red cells. The subsequent tube showed 30,000 white cells, 51,408 red cells. She was empirically treated with ceftriaxone and acyclovir. CAT scan of the head was performed and was negative. CT of the abdomen and pelvis showed no evidence of nephrolithiasis or obstructive uropathy. At the present time, she is awake. However, she is mildly confused. She is oriented to person. She complains of left flank and left hip pain. She denies any dysuria at the present time. PAST MEDICAL HISTORY: Patient has a history of breast cancer. She is status post bilateral mastectomies. According to the notes, she last received chemotherapy in August 2017 and has been on tamoxifen. Past medical history also includes hypertension, hyperlipidemia, [id number] diabetes mellitus, chronic kidney disease, coronary artery disease, myocardial infarction, and coronary artery stents. Status post pulmonary embolism and DVT. PAST SURGICAL HISTORY: Right carotid endarterectomy, bilateral mastectomies. ALLERGIES: No known allergies. MEDICATIONS: Colace, multivitamins and iron, Prilosec, Eliquis, tamoxifen, Coreg, Vasotec, Crestor, Aldactone. SOCIAL HISTORY: Lives at home with family members. Former smoker. SYSTEMS REVIEW: Neurologic: Positive for altered mental status. Cardiac: Negative chest pain or palpitations. Respiratory: Negative cough or sputum production. Gastrointestinal: Negative vomiting or diarrhea. Genitourinary: Positive for dysuria. LABORATORY DATA: White count 6.6; neutrophils 55, lymphocytes 35, monocytes 7, eosinophils 2; hematocrit 33.8; platelet count 187. BUN 16, creatinine 1.0. Urinalysis negative. Blood and urine cultures are pending. Influenza swab negative. Spinal fluid showed 1 white cell, 1011 red cells. Second tube 30 white cells, 51,412 red cells. Differential 78 neutrophils, 19 lymphocytes, 1 monocyte. Protein 51, glucose 70. Gram stain shows many red cells, no polys, no organisms. PHYSICAL EXAMINATION: General: The patient is awake, however, mildly confused, in no acute distress. Vital Signs: Temperature 97.8, T-max 100.1; blood pressure 102/51; pulse 69, regular; respirations 20 per minute. HEENT: Sclerae anicteric. Positive alopecia. Oropharynx: Dry mucous membranes. Neck: Supple. Heart: Sounds S1, S2. Lungs: Clear. No rhonchi, rales, or wheezing. Abdomen: Soft. No tenderness elicited. No mass, rebound, or rigidity. Extremities: Negative for edema. IMPRESSION: A 67-year-old female with a history of breast cancer, admitted with left flank pain, dysuria, febrile, and confused in the emergency room. Lumbar puncture with pleocytosis. RECOMMENDATIONS: Await culture results. Empiric antibiotic coverage pending workup with ceftriaxone, vancomycin, and acyclovir. Spinal fluid for herpes simplex PCR. Neurology and oncology evaluations. Further recommendations pending cultures. Will follow. Thank you for the kind referral. DENISE CARBAJAL M.D. [id number]
[2017-10-30] MEDS: VANCOMYCIN 1,000 MG in DEXTROSE 5%-WATER - 250 ML IVPB SCH (13:40)
--- NOTE | 2017-10-30 20:38 | CONSULT ---
Consult - text type - Consultation Consultation Note: NEUROLOGY CONSULTATION is greatly appreciated: This 67 yo RH woman lives alone with SUPERVISOR CAR AND YARD M-F (4 hrs/day). PMH sig for HTN, DM, Chol, ASHD s/p CA, stent, AFib, TIA, CVA and right CEA. Breast cancer on Tamoxifen and ChemoRx. Maintained on Apixaban, omeprazole, carvedilol, enalapril, crestor and spironolactone. S/P R CVA 2005 with left hemiparesis (Arm > leg). Walks independently with walker indoors and rolator outdoors. Transient visual loss (OD) 2005 resulting in Right CEA. Later had a stroke that affected speech. Patient last recalls "eating [place] beans and smoked turkey" at her kitchen table. She has no recollection of arriving in the ED or why she came to the hospital. ER records describe c/o back or flank pain or dysuria but patient denies this or c/o headache. LP done for temps to 101 and confusion. Glu=51 mg%; Protein=51 mg%, WBC= 30 and RBC= 51K all c/w a traumatic tap and normal CSF. Pt given ceftriaxone and was rapidly afebrile. Now feels fine. Denies headache or back pain. CT of Head (reviewed: Old right frontal and left temporal CVA's. Mild atrophy. Chest/Abd CT: Small pericardia effusion. Fatty liver. LOVELY: S/P R CEA. No bruits. Cor irreg. No evidence of head trauma. NEURO: Awake, pleasant and Cooperative. [facility]; 2018; Trump. Speech sl. hesitant. CN II-XII: Full luna and EOM's. No facial. Gag OK Motor: Left drift. Left hand contractures. L arm 4-/5. left leg 4+/5. spastic tone (Arm > leg). Brisk reflexes. Normal AJ's. Left Babinski. Coord: No FTN dystaxia Sensory: Normal Gait: Deferred. IMP: Moderate right and mild left cerebral dysfunction, s/p CVA's. Probably now at baseline. Cause of admission event was uncertain but may have been transient sepsis (source unclear). Consider a seizure as possible cause of fever, back pain and obscuration of consciousness (post-ictal state). SUGGEST: Check ESR, CRP, Prolactin level. Review prior neuro w/u and Rx (Dr. Leonard). Neuro f/u/ EEG as out patient. Thank you very much, Eric Maki MD
[2017-10-30] MEDS ORDERED: INSULIN (NOVOLOG) ASPART 100 UNITS/ML 10ML VIAL ONE (21:09)
--- NOTE | 2017-10-30 22:04 | CONSULT ---
Consult - text type - Consultation Consultation Note: 67 yo F with h/o HTN, HLD, NIDDM, CKD, CAD s/p R CEA, [place] s/p stent placement, CVA ( residual left sided weakness), BRCA+ Breast Ca., PE, and DVTs ( on Eliquis ), who presents with back pain. Patient reports acute onset left sided back pain beginning 2 days ago. Patient poor historian and unable to describe pain. Reports dysuria of unknown duration, with absent hematuria. Pain worse with touch and movement. No postprandial pain. Denies N/V, F/C, CP, SOB, abdominal pain, incontinence, diarrhea, lightheadedness, weakness, LOC, sensory changes. Denies alcohol or tobacco use. Had a rectal T of 101 in ER Over the course in ER became more confused Past History - Past Medical History Cancer: Yes (both breast) Cardiac Disorders: Yes (cad) CVA: Yes (x3) Diabetes: Yes GI Disorders: Yes (GERD) HTN: Yes Hypercholesterolemia: Yes - Surgical History Cardiac Surgery: Yes (card stent x2) Orthopedic Surgery: Yes (R. Foot bunionectomy) - Suicide/Smoking/Psychosocial Hx Smoking History: Former smoker Allergies/Adverse Reactions: Allergies Allergy/AdvReac Type Severity Reaction Status Date / Time No Known Drug Allergies Allergy Verified 10/29/17 16:18 Home Medications: Ambulatory Orders Docusate Sodium 100 mg PO BID 06/03/16 Multivitamin [Poly-Vitamin] 1 each PO DAILY 06/03/16 Omeprazole [Prilosec] 40 mg PO DAILY 06/03/16 Apixaban [Eliquis] 5 mg PO BID 08/25/17 Calcium Carb/Vitamin D3/Vit K1 [Calcium + D Soft Chewable Tab] 1 each PO BID 01/06 Tamoxifen Citrate 20 mg PO DAILY 08/25/17 Calcium 500Mg/Vit-D 200 Units [Os-Jose 500+D -] 1 tab PO BID tab 08/28/17 Carvedilol [Coreg -] 25 mg PO BID tablet 08/28/17 Enalapril Maleate [Vasotec -] 5 mg PO BID tablet 08/28/17 Rosuvastatin [Crestor -] 20 mg PO HS tablet 08/28/17 Spironolactone [Aldactone -] 25 mg PO DAILY tablet 08/28/17 Last Vital Signs Temp Pulse Resp BP Pulse Ox 98.4 F 89 20 135/71 99 10/30/17 20:16 10/30/17 20:16 10/30/17 20:16 10/30/17 20:16 10/30/17 20:11 Cor: RSR, No murmurs, No gallops Lungs: Clear to P&A Abd: Soft, Normal bowel sounds, No organomegaly Ext:No significant edema. Decreased LLE strength compatre to rt. Abnormal Lab Results 10/30/17 10/30/17 10/30/17 06:00 06:00 06:00 MCHC 31.7 L Chloride 110 H Random Glucose 115 H Serum Folate 47 H Active Medications Generic Name Dose Route Start Last Admin Trade Name Freq PRN Reason Stop Dose Admin Sodium Chloride 1,000 mls @ 83 mls/hr 10/30/17 02:45 10/30/17 22:21 Normal Saline - IV 83 mls/hr ASDIR SAMANTHA Administration Acyclovir 750 mg/ Dextrose 115 mls @ 115 mls/hr 10/30/17 11:30 10/30/17 18:23 IVPB 115 mls/hr Q8H-IV SAMANTHA Administration CEFTRIAXONE IN IS-OSM DEXTROSE 2 gm in 50 mls @ 100 mls/hr 10/30/17 11:30 05/09 21:23 Ceftriaxone 2 Gm-D5w Bag IVPB 100 mls/hr BID SAMANTHA Administration Vancomycin HCl 1,000 mg/ 250 mls @ 200 mls/hr 10/30/17 13:00 10/30/17 13:40 Dextrose IVPB 200 mls/hr BID@0100,1300 SAMANTHA Administration Insulin Aspart 1 vial 10/30/17 07:00 10/30/17 21:23 Novolog Vial Sliding Scale - SQ Not Given ACHS SAMANTHA Protocol A/P 67 yo F with h/o HTN, HLD, NIDDM, CKD, CAD s/p R CEA, [place] s/p stent placement, CVA, BRCA+ Breast Ca ( Tamoxifen) , PE, and DVTs, who presents with acute onset left sided back pain beginning over last 2 days, altered mental status, and rectal temp in ED 101.0. Reports dysuria of unknown duration, with absent hematuria. Became increasingly confused in ED. Received antibiotics Improved mental state this morning Suspect current scenario is suspicious for infection/delirium/seizure. and back pain due to DJD? Breast cancer h/o h/o T1c , N0, ER+/OH-/HEr2 + by FISH ,stage IA,poorly differentiated right breast cancer 01/05, while on arimidex for early stage left breast cancer. .h/o b /l mastectomies 02/04. h/o BRCA positivity h/o Abhay/BSO at age 26 Due to multiple comorbidities including moderate LV dysfunction patient was not a candidate for Her 2 based therapy. She was switched to tamoxifen Bone scan 07/[address] chest 07/08 showed several small pulmonary nodules < 1cm in size stab;e since 10/08 Ct head non con neg. CT a/p done yesterday showed no mets given back pain/? seizure --will check MRI brain w and w/o contrast and MRI T/L spine Neuro consult DVT/PE --recurrent--continue eliquis will follow discussed with PMD
[2017-10-30] MEDS ORDERED: ACETAMINOPHEN 325 MG TABLET (FP) PO ONE (22:15)
[2017-10-31] MEDS: VANCOMYCIN 1,000 MG in DEXTROSE 5%-WATER - 250 ML IVPB SCH (00:30)
[2017-10-31] MEDS: ACYCLOVIR INJECTION 750 MG in DEXTROSE 5%-WATER - 100 ML IVPB SCH ×3 (01:31→17:32)
[2017-10-31] MEDS: INSULIN SLIDING SCALE (NOVOLOG) 1 VIAL SQ SCH ×4 (06:23→21:49)
[2017-10-31] MEDS: SODIUM CHLORIDE 1,000 ML IV SCH (06:23)
[2017-10-31] MEDS: CEFTRIAXONE IN IS-OSM DEXTROSE 2 GM/50 ML BAG IVPB SCH ×2 (09:48→21:48)
[2017-10-31] MEDS ORDERED: ENALAPRIL MALEATE 5 MG TABLET (FP) PO SCH (10:45)
--- NOTE | 2017-10-31 10:46 | PN ---
Progress Note, Physician History of Present Illness: pt seen/examined. chart reviewed events noted. patient feels much better denies any pain except--- when she moves her legs Eating okay and denies headache or dizziness Denies any back pain today - Current Medication List Current Medications: Active Medications Sodium Chloride (Normal Saline -) 1,000 mls @ 83 mls/hr IV ASDIR [facility] Last Admin: 10/31/17 06:23 Dose: Not Given Acyclovir 750 mg/ Dextrose 115 mls @ 115 mls/hr IVPB Q8H-IV [facility] Last Admin: 10/31/17 09:49 Dose: 115 mls/hr CEFTRIAXONE IN IS-OSM DEXTROSE (Ceftriaxone 2 Gm-D5w Bag) 2 gm in 50 mls @ 100 mls/hr IVPB BID [facility] Last Admin: 10/31/17 09:48 Dose: 100 mls/hr Vancomycin HCl 1,000 mg/ (Dextrose) 250 mls @ 200 mls/hr IVPB BID@0100,1300 [facility] Last Admin: 10/31/17 00:30 Dose: 200 mls/hr Insulin Aspart (Novolog Vial Sliding Scale -) 1 vial SQ ACHS [facility] PRN Reason: Protocol Last Admin: 10/31/17 06:23 Dose: Not Given - Objective Vital Signs: Vital Signs Temperature 98.2 F 10/31/17 09:54 Pulse Rate 89 10/31/17 09:54 Respiratory Rate 20 10/31/17 09:54 Blood Pressure 147/81 10/31/17 09:54 O2 Sat by Pulse Oximetry (%) 99 10/30/17 20:11 Constitutional: Yes: No Distress, Calm Eyes: Yes: Conjunctiva Clear Neck: Yes: Supple Cardiovascular: Yes: Regular Rate and Rhythm Respiratory: Yes: Diminished (At bases) Gastrointestinal: Yes: Soft Edema: No Neurological: Yes: Alert, Pre-Existing Deficit Psychiatric: Yes: Alert Labs: CBC, BMP 10/30/17 06:00 10/30/17 06:00 INR, PTT INR 1.40 (0.82-1.09) H 10/29/17 18:00 Problem List - Problems (1) Sepsis Code(s): A41.9 - SEPSIS, UNSPECIFIED ORGANISM (2) Altered mental status Code(s): R41.82 - ALTERED MENTAL STATUS, UNSPECIFIED (3) Breast cancer Code(s): C50.919 - MALIGNANT NEOPLASM OF UNSP SITE OF UNSPECIFIED FEMALE BREAST Qualifiers: Breast location: unspecified site of breast (4) Cerebral arteriosclerosis with history of previous stroke Code(s): I67.2 - CEREBRAL ATHEROSCLEROSIS; Z86.73 - PRSNL HX OF TIA (TIA), AND CEREB INFRC W/O RESID DEFICITS (5) History of pulmonary embolus (PE) Code(s): Z86.711 - PERSONAL HISTORY OF PULMONARY EMBOLISM (6) S/P coronary artery stent placement Code(s): Z95.5 - PRESENCE OF CORONARY ANGIOPLASTY IMPLANT AND GRAFT Assessment/Plan clinically better continue same treatment Antibiotics Follow-up cultures MRI--brain and spine--- has been ordered Patient to start on home medications orders written and discussed with nursing staff I'll follow
--- NOTE | 2017-10-31 11:50 | PN ---
Progress Note, Physician History of Present Illness: Awake, alert, oriented x3 Has no recall for recent events Complains of low back and leg pain No c/o fever/ chills Afebrile WBC WNL ESR, CRP WNL Blood, CSF c/s no growth - Current Medication List Current Medications: Active Medications Apixaban (Eliquis -) 5 mg PO BID [facility] Carvedilol (Coreg -) 25 mg PO BID [facility] Docusate Sodium (Colace -) 100 mg PO BID [facility] Enalapril Maleate (Vasotec -) 5 mg PO DAILY [facility] Last Admin: 10/31/17 11:15 Dose: 5 mg Sodium Chloride (Normal Saline -) 1,000 mls @ 83 mls/hr IV ASDIR [facility] Last Admin: 10/31/17 06:23 Dose: Not Given Acyclovir 750 mg/ Dextrose 115 mls @ 115 mls/hr IVPB Q8H-IV [facility] Last Admin: 10/31/17 09:49 Dose: 115 mls/hr CEFTRIAXONE IN IS-OSM DEXTROSE (Ceftriaxone 2 Gm-D5w Bag) 2 gm in 50 mls @ 100 mls/hr IVPB BID [facility] Last Admin: 10/31/17 09:48 Dose: 100 mls/hr Vancomycin HCl 1,000 mg/ (Dextrose) 250 mls @ 200 mls/hr IVPB BID@0100,1300 [facility] Last Admin: 10/31/17 00:30 Dose: 200 mls/hr Insulin Aspart (Novolog Vial Sliding Scale -) 1 vial SQ ACHS [facility] PRN Reason: Protocol Last Admin: 10/31/17 11:19 Dose: Not Given Non-Formulary Medication (Calcium Carb/Vitamin D3/Vit K1 [Calcium + D Soft Chewable Tab]) 1 each PO BID [facility] Non-Formulary Medication (Multivitamin [Poly-Vitamin]) 1 each PO DAILY [facility] Pantoprazole Sodium (Protonix -) 40 mg PO DAILY [facility] Rosuvastatin Calcium (Crestor -) 20 mg PO HS [facility] Spironolactone (Aldactone -) 25 mg PO DAILY [facility] Tamoxifen Citrate (Tamoxifen Citrate) 20 mg PO DAILY [facility] - Objective Vital Signs: Vital Signs Temperature 98.2 F 10/31/17 09:54 Pulse Rate 89 10/31/17 09:54 Respiratory Rate 20 10/31/17 09:54 Blood Pressure 147/81 10/31/17 09:54 O2 Sat by Pulse Oximetry (%) 99 10/30/17 20:11 Constitutional: Yes: No Distress Eyes: Yes: Conjunctiva Clear Neck: Yes: Supple Cardiovascular: Yes: Regular Rate and Rhythm, S1, S2 Respiratory: Yes: CTA Bilaterally Gastrointestinal: Yes: Normal Bowel Sounds, Soft. No: Tenderness Edema: LLE: 1+, RLE: 1+ Labs: CBC, BMP 10/30/17 06:00 10/30/17 06:00 INR, PTT INR 1.40 (0.82-1.09) H 10/29/17 18:00 Assessment/Plan Fever, altered mental status, abnormal CSF Low clinical suspicion for meningitis Breast ca Back and leg pain Continue ceftriaxone/ acyclovir D/C vancomycin Await spinal fluid c/s, HSV PCR If CSF c/s negative at 48h D/C ceftriaxone If HSV PCR negative D/C acyclovir
--- NOTE | 2017-10-31 12:15 | PN ---
Progress Note (short form) - Note Progress Note: Patient seen and examined Feels much better. Clinically improved. sitting and ea Last Vital Signs Temp Pulse Resp BP Pulse Ox 98.2 F 89 20 147/81 99 10/31/17 09:54 10/31/17 09:54 10/31/17 09:54 10/31/17 09:54 10/30/17 20:11 Cor: RSR, No murmurs, No gallops Lungs: Clear to P&A Abd: Soft, Normal bowel sounds, No organomegaly Ext:No significant edema Labs/Meds reviewed A/P 67 yo F with h/o HTN, HLD, NIDDM, CKD, CAD s/p R CEA, [place] s/p stent placement, CVA, BRCA+ Breast Ca ( Tamoxifen) , PE, and DVTs, who presents with acute onset left sided back pain beginning over last 2 days, altered mental status, and rectal temp in ED 101.0. Reports dysuria of unknown duration, with absent hematuria. Became increasingly confused in ED. Received antibiotics Suspect current scenario is suspicious for infection/delirium/seizure. and back pain due to DJD? ? neurocardigenic syncope h/o breast cancer, Left in 2011, s/p lumpectomy,was on arimidex h/o T1c , N0, ER+/AL-/HEr2 + by FISH ,stage IA,poorly differentiated right breast cancer 01/05, while on arimidex for early stage left breast cancer. .h/o b /l mastectomies 02/04. h/o BRCA positivity h/o ELIZABETH/BSO at age 26 Due to multiple comorbidities including LV dysfunction LVEF--25% on echo and 33% on MUGA. She refused adjuvant chemotherapy She was switched to tamoxifen Bone scan 07/[address] chest 07/08 showed several small pulmonary nodules < 1cm in size stable since 10/08 CT head non con neg. CT a/p done yesterday showed no mets given back pain/? seizure --will check MRI brain w and w/o contrast and MRI T/L spine Neuro consult DVT/PE --recurrent--continue eliquis
--- NOTE | 2017-10-31 12:23 | CON.CARD ---
Consult Consult Specialty:: Cardiology Referred by:: Shreya Best MD Reason for Consultation:: CAD post PCI - History of Present Illness Chief Complaint: Fever, altered mental status History of Present Illness: Patient is a 67 year old female with underlying history of HTN , ASHD, S/P PCI, angina pectoris, CVA with residual left sided weakness, s/p lumpectomy for breast cancer, history of DVT and PTE, LV systolic dysfunction, carotid stenosis s/p right CEA and hypercholesterolemia who presented to the ED with complaint of fever, altered mental status, back pain, underwent LP, receiving rocephin, vanco and acyclovir, since defervesced, sensorium back to baseline. She remains asymptomatic from cardiovascular standpoint and denies chest pain, near or true syncope, palpitations, dyspnea, orthopnea, PND or LE edema. 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 Home Medications - Allergies Allergies/Adverse Reactions: Allergies Allergy/AdvReac Type Severity Reaction Status Date / Time No Known Drug Allergies Allergy Verified 10/29/17 16:18 - Home Medications Home Medications: Ambulatory Orders Docusate Sodium 100 mg PO BID 06/03/16 Multivitamin [Poly-Vitamin] 1 each PO DAILY 06/03/16 Omeprazole [Prilosec] 40 mg PO DAILY 06/03/16 Apixaban [Eliquis] 5 mg PO BID 08/25/17 Calcium Carb/Vitamin D3/Vit K1 [Calcium + D Soft Chewable Tab] 1 each PO BID 01/06 Tamoxifen Citrate 20 mg PO DAILY 08/25/17 Calcium 500Mg/Vit-D 200 Units [Os-Jose 500+D -] 1 tab PO BID tab 08/28/17 Carvedilol [Coreg -] 25 mg PO BID tablet 08/28/17 Enalapril Maleate [Vasotec -] 5 mg PO BID tablet 08/28/17 Rosuvastatin [Crestor -] 20 mg PO HS tablet 08/28/17 Spironolactone [Aldactone -] 25 mg PO DAILY tablet 08/28/17 Family Disease History - Family Disease History Family Disease History: CA: Father (breast), Sister (breast), Other: Mother (CVA ) Review of Systems - Review of Systems Constitutional: reports: Fever Neurological: reports: Confusion Vital Signs: Vital Signs Temperature 98.2 F 10/31/17 09:54 Pulse Rate 89 10/31/17 09:54 Respiratory Rate 20 10/31/17 09:54 Blood Pressure 147/81 10/31/17 09:54 O2 Sat by Pulse Oximetry (%) 96 10/31/17 09:00 Constitutional: Yes: No Distress, Calm Neck: Yes: Supple Respiratory: Yes: Regular, CTA Bilaterally Gastrointestinal: Yes: Normal Bowel Sounds, Soft Cardiovascular: Yes: Regular Rate and Rhythm JVD: No Carotid Bruit: No Heart Sounds: Yes: S1, S2 Edema: No - Other Data Labs, Other Data: CBC, BMP 10/30/17 06:00 10/30/17 06:00 INR, PTT INR 1.40 (0.82-1.09) H 10/29/17 18:00 NSR with occ PVC similar to previous Echo: Report Reviewed Prior Cardiac Procedures: PTCA with Stent Ejection Fraction %: LVEF > or = 40 % Imaging - Results Chest X-ray: Report Reviewed (NAD) MRI: Report Reviewed (Stable chronic infarcts and mild-mod microvascular ischemic changes) Assessment/Plan 08/13/2017 Mild-mod decreased LV fxn with mod dilated LV LVEF 46% 1. Fever, altered mental status, abnormal CSF r/o meningitis 2. ASHD, S/P DEAN mLAD ISR, angina pectoris 3. 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 History of CVA/stroke with residual deficit 5. 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 HTN/HCVD 7. Hypercholesterolemia 8. PVC 9. Carotid disease s/p right CEA 10. Breast ca s/p bilateral mastectomy with reconstruction 11. Acute on CKD pre-renal improved 12. H/o neurocardiogenic syncope with typical prodromal sxs PLAN: 1. Continue carvedilol 25 bid, vasotec 5 bid, Crestor 20 qhs, and Aldactone 25 qd 2. Maintain on Eliquis 5 bid, HI prophylaxis 3. Empiric abx and antiviral course per ID 4. Thank you for consultative opportunity
--- NOTE | 2017-10-31 13:15 | PN ---
Progress Note, TAPEMAN - Note Progress Note: Clinically improved. Verbal. Appropriate. Tolerating diet. Selected Entries 10/30/17 10/30/17 10/30/17 02:30 04:11 09:46 Breakfast Supper Temperature 98.6 F 97.8 F 97.8 F 10/30/17 10/30/17 10/30/17 13:00 18:00 19:05 Breakfast Supper 100% Temperature 98.0 F 98.3 F 10/30/17 10/31/17 10/31/17 20:16 02:00 06:00 Breakfast Supper Temperature 98.4 F 98.4 F 98.8 F 10/31/17 10/31/17 09:54 09:58 Breakfast 100% Supper Temperature 98.2 F
[2017-10-31] MEDS ORDERED: PT OWN MED DRAWER 7, Y5N ONE (21:01)
[2017-10-31] MEDS ORDERED: INSULIN (NOVOLOG) ASPART 100 UNITS/ML 10ML VIAL ONE (21:03)
[2017-10-31] MEDS ORDERED: ACETAMINOPHEN 325 MG TABLET (FP) PO ONE (21:23)
[2017-10-31] MEDS: CARVEDILOL 25 MG TABLET (FP) PO SCH (21:48)
[2017-10-31] MEDS: DOCUSATE SODIUM 100 MG CAPSULE (FP) PO SCH (21:48)
[2017-10-31] MEDS: ROSUVASTATIN CA 20 MG TABLET (FP) PO SCH (21:48)
[2017-10-31] MEDS: APIXABAN 5 MG TABLET PO SCH (21:49)
[2017-10-31] MEDS: ENALAPRIL MALEATE 5 MG TABLET (FP) PO SCH (21:49)
[2017-11-01] MEDS ORDERED: PT OWN MED DRAWER 7, Y5N ONE ×3 (02:34→17:34)
[2017-11-01] MEDS: ACYCLOVIR INJECTION 750 MG in DEXTROSE 5%-WATER - 100 ML IVPB SCH ×3 (02:41→18:13)
[2017-11-01] MEDS: SODIUM CHLORIDE 1,000 ML IV SCH (02:46)
[2017-11-01] MEDS: INSULIN SLIDING SCALE (NOVOLOG) 1 VIAL SQ SCH ×4 (06:30→22:12)
--- NOTE | 2017-11-01 10:07 | PN ---
Progress Note, Physician Chief Complaint: events noted Pt examined pt states she was hallucinating today morning-- has not slept in 3 days she saw that inside the room there was rainfall. no headaches still continues to have back pain spoke with nurse - Current Medication List Current Medications: Active Medications Apixaban (Eliquis -) 5 mg PO BID [facility] Last Admin: 10/31/17 21:49 Dose: 5 mg Carvedilol (Coreg -) 25 mg PO BID [facility] Last Admin: 10/31/17 21:48 Dose: 25 mg Docusate Sodium (Colace -) 100 mg PO BID [facility] Last Admin: 10/31/17 21:48 Dose: 100 mg Enalapril Maleate (Vasotec -) 5 mg PO BID [facility] Last Admin: 10/31/17 21:49 Dose: 5 mg Sodium Chloride (Normal Saline -) 1,000 mls @ 83 mls/hr IV ASDIR [facility] Last Admin: 11/01/17 02:46 Dose: 83 mls/hr Acyclovir 750 mg/ Dextrose 115 mls @ 115 mls/hr IVPB Q8H-IV [facility] Last Admin: 11/01/17 02:41 Dose: 115 mls/hr CEFTRIAXONE IN IS-OSM DEXTROSE (Ceftriaxone 2 Gm-D5w Bag) 2 gm in 50 mls @ 100 mls/hr IVPB BID [facility] Last Admin: 10/31/17 21:48 Dose: 100 mls/hr Insulin Aspart (Novolog Vial Sliding Scale -) 1 vial SQ ACHS [facility] PRN Reason: Protocol Last Admin: 11/01/17 06:30 Dose: Not Given Non-Formulary Medication (Calcium Carb/Vitamin D3/Vit K1 [Calcium + D Soft Chewable Tab]) 1 each PO BID [facility] Non-Formulary Medication (Multivitamin [Poly-Vitamin]) 1 each PO DAILY [facility] Pantoprazole Sodium (Protonix -) 40 mg PO DAILY [facility] Rosuvastatin Calcium (Crestor -) 20 mg PO HS [facility] Last Admin: 10/31/17 21:48 Dose: 20 mg Spironolactone (Aldactone -) 25 mg PO DAILY [facility] Tamoxifen Citrate (Tamoxifen Citrate) 20 mg PO DAILY [facility] - Objective Vital Signs: Vital Signs Temperature 98.3 F 11/01/17 06:00 Pulse Rate 93 H 11/01/17 06:31 Respiratory Rate 20 11/01/17 06:00 Blood Pressure 152/74 02/10/18 06:31 O2 Sat by Pulse Oximetry (%) 95 10/31/17 21:00 Constitutional: Yes: No Distress Cardiovascular: Yes: Regular Rate and Rhythm Respiratory: Yes: Diminished Gastrointestinal: Yes: Normal Bowel Sounds, Soft. No: Tenderness Edema: No Labs: CBC, BMP 10/30/17 06:00 10/30/17 06:00 INR, PTT INR 1.40 (0.82-1.09) H 10/29/17 18:00 Problem List - Problems (1) Altered mental status Code(s): R41.82 - ALTERED MENTAL STATUS, UNSPECIFIED Qualifiers: Altered mental status type: disorientation Qualified Code(s): R41.0 - Disorientation, unspecified (2) Back pain Code(s): M54.9 - DORSALGIA, UNSPECIFIED (3) Breast cancer Code(s): C50.919 - MALIGNANT NEOPLASM OF UNSP SITE OF UNSPECIFIED FEMALE BREAST Qualifiers: Breast location: unspecified site of breast (4) Cerebral arteriosclerosis with history of previous stroke Code(s): I67.2 - CEREBRAL ATHEROSCLEROSIS; Z86.73 - PRSNL HX OF TIA (TIA), AND CEREB INFRC W/O RESID DEFICITS Assessment/Plan PLAN empiric antibiotics CSF -no growth continue with meds dc iv fluids Melatonin for sleep Neurology follow up Brain MRI noted Thoracic- lumbar spine MRI pending
[2017-11-01] MEDS: CEFTRIAXONE IN IS-OSM DEXTROSE 2 GM/50 ML BAG IVPB SCH (10:08)
[2017-11-01] MEDS: ENALAPRIL MALEATE 5 MG TABLET (FP) PO SCH ×2 (10:09→22:07)
[2017-11-01] MEDS: CARVEDILOL 25 MG TABLET (FP) PO SCH ×2 (10:09→22:07)
[2017-11-01] MEDS: PANTOPRAZOLE 40 MG TABLET (FP) PO SCH (10:09)
[2017-11-01] MEDS: SPIRONOLACTONE 25 MG TABLET (FP) PO SCH (10:09)
[2017-11-01] MEDS: DOCUSATE SODIUM 100 MG CAPSULE (FP) PO SCH ×2 (10:09→22:07)
[2017-11-01] MEDS: TAMOXIFEN CITRATE 10 MG TABLET PO SCH (10:10)
[2017-11-01] MEDS: APIXABAN 5 MG TABLET PO SCH ×2 (10:10→22:07)
--- NOTE | 2017-11-01 12:16 | PN ---
Progress Note (short form) - Note Progress Note: remains afebrile alert Vital Signs Period Temp Pulse Resp BP Sys/Mccollum Pulse Ox Last 24 Hr 98.1 F-98.4 F 83-95 18-20 120-180/61-90 95-96 cor-rrr lungs clear abd soft,nt ext no edema CBC, BMP 10/30/17 06:00 10/30/17 06:00 Microbiology 10/29/17 23:00 Cerebral Spinal Fluid - Lumbar Puncture Gram Stain - Final 10/29/17 23:00 Cerebral Spinal Fluid - Lumbar Puncture CSF Culture - Final NO GROWTH AFTER 48 HOURS INCUBATION 10/29/17 18:00 Blood - Peripheral Venous Blood Culture - Preliminary NO GROWTH OBTAINED AFTER 48 HOURS, INCUBATION TO CONTINUE FOR 3 DAYS. 10/29/17 18:00 Blood - Peripheral Venous Blood Culture - Preliminary NO GROWTH OBTAINED AFTER 48 HOURS, INCUBATION TO CONTINUE FOR 3 DAYS. 10/29/17 20:00 Urine - Urine Clean Catch Urine Culture - Final NO GROWTH OBTAINED 10/29/17 20:19 Nasopharyngeal Swab Influenza Types A,B Antigen (LYN) - Final 10/29/17 20:19 Nasopharyngeal Swab - Final Current Medications Apixaban (Eliquis -) 5 mg PO BID [facility] Last Admin: 11/01/17 10:10 Dose: 5 mg Carvedilol (Coreg -) 25 mg PO BID [facility] Last Admin: 11/01/17 10:09 Dose: 25 mg Docusate Sodium (Colace -) 100 mg PO BID [facility] Last Admin: 11/01/17 10:09 Dose: 100 mg Enalapril Maleate (Vasotec -) 5 mg PO BID [facility] Last Admin: 11/01/17 10:09 Dose: 5 mg Sodium Chloride (Normal Saline -) 1,000 mls @ 83 mls/hr IV ASDIR [facility] Last Admin: 11/01/17 02:46 Dose: 83 mls/hr Acyclovir 750 mg/ Dextrose 115 mls @ 115 mls/hr IVPB Q8H-IV [facility] Last Admin: 11/01/17 10:56 Dose: 115 mls/hr CEFTRIAXONE IN IS-OSM DEXTROSE (Ceftriaxone 2 Gm-D5w Bag) 2 gm in 50 mls @ 100 mls/hr IVPB BID [facility] Last Admin: 11/01/17 10:08 Dose: 100 mls/hr Insulin Aspart (Novolog Vial Sliding Scale -) 1 vial SQ ACHS [facility] PRN Reason: Protocol Last Admin: 11/01/17 06:30 Dose: Not Given Melatonin (Melatonin) 3 mg PO HS [facility] Multivitamins/Minerals/Vitamin C (Tab-A-Vit -) 1 tab PO DAILY [facility] Non-Formulary Medication (Calcium Carb/Vitamin D3/Vit K1 [Calcium + D Soft Chewable Tab]) 1 each PO BID [facility] Pantoprazole Sodium (Protonix -) 40 mg PO DAILY [facility] Last Admin: 11/01/17 10:09 Dose: 40 mg Rosuvastatin Calcium (Crestor -) 20 mg PO HS [facility] Last Admin: 10/31/17 21:48 Dose: 20 mg Spironolactone (Aldactone -) 25 mg PO DAILY [facility] Last Admin: 11/01/17 10:09 Dose: 25 mg Tamoxifen Citrate (Tamoxifen Citrate) 20 mg PO DAILY [facility] Last Admin: 11/01/17 10:10 Dose: 20 mg a/p willl d/c ceftriaxone continue acyclovir pending hsv results continue ivf, monitor renal function while on iv acyclovir
[2017-11-01 13:19] LABS: ANION GAP 4 (8-16); BLOOD UREA NITROGEN 10 mg/dL (7-18); CHLORIDE 110 mmol/L (98-107); CO2 30 mmol/L (21-32); GLUCOSE,RANDOM 101 mg/dL (74-106); POTASSIUM 3.9 mmol/L (3.5-5.1); SODIUM 144 mmol/L (136-145)
[2017-11-01] MEDS: MULTIVITAMINS (DAILY MVI) TABLET (FP) PO SCH (14:32)
--- NOTE | 2017-11-01 15:17 | PN ---
Progress Note, Physician History of Present Illness: Sensorium resolved to baseline, brain MRI shows old right MCA stroke. - Current Medication List Current Medications: Active Medications Apixaban (Eliquis -) 5 mg PO BID [facility] Last Admin: 11/01/17 10:10 Dose: 5 mg Carvedilol (Coreg -) 25 mg PO BID [facility] Last Admin: 11/01/17 10:09 Dose: 25 mg Docusate Sodium (Colace -) 100 mg PO BID [facility] Last Admin: 11/01/17 10:09 Dose: 100 mg Enalapril Maleate (Vasotec -) 5 mg PO BID [facility] Last Admin: 11/01/17 10:09 Dose: 5 mg Sodium Chloride (Normal Saline -) 1,000 mls @ 83 mls/hr IV ASDIR [facility] Last Admin: 11/01/17 02:46 Dose: 83 mls/hr Acyclovir 750 mg/ Dextrose 115 mls @ 115 mls/hr IVPB Q8H-IV [facility] Last Admin: 11/01/17 10:56 Dose: 115 mls/hr Insulin Aspart (Novolog Vial Sliding Scale -) 1 vial SQ ACHS [facility] PRN Reason: Protocol Last Admin: 11/01/17 13:07 Dose: Not Given Melatonin (Melatonin) 3 mg PO [facility] Multivitamins/Minerals/Vitamin C (Tab-A-Vit -) 1 tab PO DAILY [facility] Last Admin: 11/01/17 14:32 Dose: 1 tab Non-Formulary Medication (Calcium Carb/Vitamin D3/Vit K1 [Calcium + D Soft Chewable Tab]) 1 each PO BID [facility] Pantoprazole Sodium (Protonix -) 40 mg PO DAILY [facility] Last Admin: 11/01/17 10:09 Dose: 40 mg Rosuvastatin Calcium (Crestor -) 20 mg PO HS [facility] Last Admin: 10/31/17 21:48 Dose: 20 mg Spironolactone (Aldactone -) 25 mg PO DAILY [facility] Last Admin: 11/01/17 10:09 Dose: 25 mg Tamoxifen Citrate (Tamoxifen Citrate) 20 mg PO DAILY [facility] Last Admin: 11/01/17 10:10 Dose: 20 mg - Objective Vital Signs: Vital Signs Temperature 98.1 F 11/01/17 14:39 Pulse Rate 89 11/01/17 14:39 Respiratory Rate 20 11/01/17 14:39 Blood Pressure 136/88 11/01/17 10:37 O2 Sat by Pulse Oximetry (%) 94 L 11/01/17 09:00 Constitutional: Yes: No Distress, Calm Neck: Yes: Supple Cardiovascular: Yes: Regular Rate and Rhythm Respiratory: Yes: Regular, Diminished, On Nasal O2 Gastrointestinal: Yes: Normal Bowel Sounds, Soft, Abdomen, Obese Edema: No Labs: CBC, BMP 10/30/17 06:00 11/01/17 12:40 INR, PTT INR 1.40 (0.82-1.09) H 10/29/17 18:00 - ....Imaging MRI: Report Reviewed (Chronic right MCA stroke) Problem List - Problems (1) Altered mental status Code(s): R41.82 - ALTERED MENTAL STATUS, UNSPECIFIED Qualifiers: Altered mental status type: disorientation Qualified Code(s): R41.0 - Disorientation, unspecified (2) Cerebral arteriosclerosis with history of previous stroke Code(s): I67.2 - CEREBRAL ATHEROSCLEROSIS; Z86.73 - PRSNL HX OF TIA (TIA), AND CEREB INFRC W/O RESID DEFICITS (3) Chronic anticoagulation Code(s): 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 transplanted heart: [place] heart Associated angina: without angina Qualified Code(s): I25.10 - Atherosclerotic heart disease of [place] coronary artery without angina pectoris (5) Deep vein thrombosis (DVT) of left lower extremity Code(s): I82.402 - ACUTE EMBOLISM AND THOMBOS UNSP DEEP VEINS OF L LOW EXTREM Qualifiers: Affected thrombotic vein of extremity: unspecified vein of extremity Chronicity: acute Qualified Code(s): I82.402 - Acute embolism and thrombosis of unspecified deep veins of left lower extremity (6) History of pulmonary embolus (PE) Code(s): Z86.711 - PERSONAL HISTORY OF PULMONARY EMBOLISM (7) Hypertension Code(s): I10 - ESSENTIAL (PRIMARY) HYPERTENSION Qualifiers: Hypertension type: essential hypertension Qualified Code(s): I10 - Essential (primary) hypertension (8) S/P coronary artery stent placement Code(s): Z95.5 - PRESENCE OF CORONARY ANGIOPLASTY IMPLANT AND GRAFT (9) Systolic dysfunction without heart failure Code(s): I51.9 - HEART DISEASE, UNSPECIFIED Assessment/Plan 08/13/2017 Mild-mod decreased LV fxn with mod dilated LV LVEF 46% 1. Fever, altered mental status, abnormal CSF r/o viral meningitis 2. ASHD, S/P DEAN mLAD ISR, angina pectoris 3. 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 History of right MCA CVA/stroke with residual deficit 5. 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 HTN/HCVD 7. Hypercholesterolemia 8. PVC 9. Carotid disease s/p right CEA 10. Breast ca s/p bilateral mastectomy with reconstruction 11. Acute on CKD pre-renal improved 12. H/o neurocardiogenic syncope with typical prodromal sxs PLAN: 1. Continue carvedilol 25 bid, vasotec 5 bid, Crestor 20 qhs, and Aldactone 25 qd 2. Maintain on Eliquis 5 bid, GI prophylaxis 3. Empiric abx d/everardo and continue antiviral course per ID
[2017-11-01] MEDS ORDERED: ACETAMINOPHEN 325 MG TABLET (FP) PO ONE (18:30)
--- NOTE | 2017-11-01 19:57 | CONSULT ---
Consult Consult Specialty:: Rheumatology - History of Present Illness History of Present Illness: 67 y/o F with PMH HTN, DM, CKD, CAD s/p R carotid endarterectomy, CO s/p stent placement, CVA (residual L sided weakness), BRCA+ Breast CA (on Tamoxifen), hx PE, DVT (on Eliquis) admitted for severe low back pain. The patient has history of Alopecia. Copnsult requested to evaluate this problem. Since admission back pain improved. LP CSF WBC 1, glucose 70, protein 51. ESR 14 and urinalysis with no protein and no blood. MRi T spine reading is pending The patient has not have fever. HPI Three years ago the patient developed progressive hair loss, She was seen by dermatology and was told she has alopecia. She denies skin rash, oralulcers , Raynaud's phenomenon, Sicca syndrome, shortness of breath, chest pain or fever. 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 Home Medications - Allergies Allergies/Adverse Reactions: Allergies Allergy/AdvReac Type Severity Reaction Status Date / Time No Known Drug Allergies Allergy Verified 10/29/17 16:18 - Home Medications Home Medications: Ambulatory Orders Docusate Sodium 100 mg PO BID 06/03/16 Multivitamin [Poly-Vitamin] 1 each PO DAILY 06/03/16 Omeprazole [Prilosec] 40 mg PO DAILY 06/03/16 Apixaban [Eliquis] 5 mg PO BID 08/25/17 Calcium Carb/Vitamin D3/Vit K1 [Calcium + D Soft Chewable Tab] 1 each PO BID 01/06 Tamoxifen Citrate 20 mg PO DAILY 08/25/17 Calcium 500Mg/Vit-D 200 Units [Os-Jose 500+D -] 1 tab PO BID tab 08/28/17 Carvedilol [Coreg -] 25 mg PO BID tablet 08/28/17 Enalapril Maleate [Vasotec -] 5 mg PO BID tablet 08/28/17 Rosuvastatin [Crestor -] 20 mg PO HS tablet 08/28/17 Spironolactone [Aldactone -] 25 mg PO DAILY tablet 08/28/17 Family Disease History - Family Disease History Family Disease History: CA: Father (breast), Sister (breast), Other: Mother (CVA ) Review of Systems - Review of Systems Constitutional: reports: Malaise Eyes: reports: No Symptoms HENT: reports: No Symptoms Neck: reports: No Symptoms Cardiovascular: reports: No Symptoms Respiratory: reports: No Symptoms Musculoskeletal: reports: Other (Admitted with abc porter, improving. No peripheral joitn pain.) Integumentary: reports: Other (Total alopecial in scalp) Physical Exam Vital Signs: Vital Signs Temperature 98.3 F 11/01/17 16:50 Pulse Rate 96 H 11/01/17 16:50 Respiratory Rate 20 11/01/17 16:50 Blood Pressure 154/83 11/01/17 16:50 O2 Sat by Pulse Oximetry (%) 94 L 11/01/17 09:00 Constitutional: Yes: Mild Distress Eyes: Yes: WNL HENT: Yes: WNL Neck: Yes: WNL Cardiovascular: Yes: WNL Respiratory: Yes: WNL Gastrointestinal: Yes: WNL Musculoskeletal: Yes: Other (No active joints.) Labs: CBC, BMP 10/30/17 06:00 11/01/17 12:40 Problem List - Problems (1) Alopecia areata Assessment/Plan: The patient probably has alopecia areata. even though it probably has an autoimmune etiology it it not related with other rheumatological problems. No further work-up is required. Code(s): L63.9 - ALOPECIA AREATA, UNSPECIFIED
[2017-11-01] MEDS ORDERED: MELATONIN 1 MG TABLET PO SCH (22:00)
[2017-11-01] MEDS: ROSUVASTATIN CA 20 MG TABLET (FP) PO SCH (22:07)
[2017-11-02] MEDS: ACYCLOVIR INJECTION 750 MG in DEXTROSE 5%-WATER - 100 ML IVPB SCH (01:06)
[2017-11-02] MEDS ORDERED: ACETAMINOPHEN 325 MG TABLET (FP) PO PRN (05:36)
[2017-11-02] MEDS: INSULIN SLIDING SCALE (NOVOLOG) 1 VIAL SQ SCH ×4 (06:05→21:42)
[2017-11-02 07:51] LABS: HEMATOCRIT 32.2 % (32.4-45.2); HEMOGLOBIN 10.3 GM/dL (10.7-15.3); MCH 27.3 pg (25.7-33.7); MCHC 31.9 g/dl (32.0-36.0); MEAN CELL VOLUME 85.4 fl (80-96); MEAN PLT VOLUME 8.8 fl (7.5-11.1); PLATELET COUNT 201 K/MM3 (134-434); RBC 3.77 M/mm3 (3.60-5.2); RDW 13.9 % (11.6-15.6); WHITE BLOOD COUNT 8.6 K/mm3 (4.0-10.0)
[2017-11-02 08:08] LABS: CHLORIDE 111 mmol/L (98-107); POTASSIUM 4.2 mmol/L (3.5-5.1); SODIUM 143 mmol/L (136-145)
[2017-11-02 08:14] LABS: ANION GAP 7 (8-16); BLOOD UREA NITROGEN 15 mg/dL (7-18); CALCIUM 8.5 mg/dL (8.5-10.1); CO2 25 mmol/L (21-32); CREATININE 1.9 mg/dL (0.55-1.02); GLUCOSE,RANDOM 87 mg/dL (74-106)
--- NOTE | 2017-11-02 09:38 | PN ---
Progress Note (short form) - Note Progress Note: remains afebrile alert feels well fluids d/everardo overnight Vital Signs Period Temp Pulse Resp BP Sys/Mccollum Pulse Ox Last 24 Hr 98.1 F-100 F 65-99 20-20 110-155/56-88 95 cor-rrr lungs clear abd soft,nt ext no edema CBC, BMP 11/02/17 06:00 11/02/17 06:00 Microbiology 10/29/17 18:00 Blood - Peripheral Venous Blood Culture - Preliminary NO GROWTH OBTAINED AFTER 72 HOURS, INCUBATION TO CONTINUE FOR 2 DAYS. 10/29/17 18:00 Blood - Peripheral Venous Blood Culture - Preliminary NO GROWTH OBTAINED AFTER 72 HOURS, INCUBATION TO CONTINUE FOR 2 DAYS. 10/29/17 23:00 Cerebral Spinal Fluid - Lumbar Puncture Gram Stain - Final 10/29/17 23:00 Cerebral Spinal Fluid - Lumbar Puncture CSF Culture - Final NO GROWTH AFTER 48 HOURS INCUBATION 10/29/17 20:00 Urine - Urine Clean Catch Urine Culture - Final NO GROWTH OBTAINED 10/29/17 20:19 Nasopharyngeal Swab Influenza Types A,B Antigen (LYN) - Final 10/29/17 20:19 Nasopharyngeal Swab - Final a/p fever confusion resolved antibiotics d/everardo yesterday hold acyclovir, check hsv results resume ivf, monitor renal function cr elevated today to 1.9 breast cancer/back pain- imaging per oncology
[2017-11-02] MEDS ORDERED: SODIUM CHLORIDE 1,000 ML IV SCH (09:45)
[2017-11-02] MEDS ORDERED: PT OWN MED DRAWER 7, Y5N ONE ×2 (09:59→17:41)
[2017-11-02] MEDS: ENALAPRIL MALEATE 5 MG TABLET (FP) PO SCH (10:03)
[2017-11-02] MEDS: CARVEDILOL 25 MG TABLET (FP) PO SCH ×2 (10:03→21:41)
[2017-11-02] MEDS: MULTIVITAMINS (DAILY MVI) TABLET (FP) PO SCH (10:03)
[2017-11-02] MEDS: PANTOPRAZOLE 40 MG TABLET (FP) PO SCH (10:03)
[2017-11-02] MEDS: DOCUSATE SODIUM 100 MG CAPSULE (FP) PO SCH ×2 (10:03→21:40)
[2017-11-02] MEDS: SPIRONOLACTONE 25 MG TABLET (FP) PO SCH (10:03)
[2017-11-02] MEDS: TAMOXIFEN CITRATE 10 MG TABLET PO SCH (10:04)
[2017-11-02] MEDS: APIXABAN 5 MG TABLET PO SCH ×2 (10:04→21:42)
[2017-11-02] MEDS ORDERED: SODIUM CHLORIDE 0.45% 1,000 ML IV SCH (11:30)
--- NOTE | 2017-11-02 11:30 | PN ---
Progress Note, Physician Chief Complaint: no further hallucinations she feels well - Current Medication List Current Medications: Active Medications Acetaminophen (Tylenol -) 650 mg PO Q4H PRN PRN Reason: BACK PAIN Last Admin: 11/02/17 05:57 Dose: 650 mg Apixaban (Eliquis -) 5 mg PO BID [facility] Last Admin: 11/02/17 10:04 Dose: 5 mg Carvedilol (Coreg -) 25 mg PO BID [facility] Last Admin: 11/02/17 10:03 Dose: 25 mg Docusate Sodium (Colace -) 100 mg PO BID [facility] Last Admin: 11/02/17 10:03 Dose: 100 mg Enalapril Maleate (Vasotec -) 5 mg PO BID [facility] Last Admin: 11/02/17 10:03 Dose: 5 mg Acyclovir 750 mg/ Dextrose 115 mls @ 115 mls/hr IVPB Q8H-IV [facility] Last Admin: 11/02/17 01:06 Dose: 115 mls/hr Sodium Chloride (Normal Saline -) 1,000 mls @ 83 mls/hr IV ASDIR [facility] Last Admin: 11/02/17 10:02 Dose: 83 mls/hr Sodium Chloride (1/2 Normal Saline) 1,000 mls @ 83 mls/hr IV ASDIR [facility] Insulin Aspart (Novolog Vial Sliding Scale -) 1 vial SQ ACHS [facility] PRN Reason: Protocol Last Admin: 11/02/17 06:05 Dose: Not Given Melatonin (Melatonin) 3 mg PO HS [facility] Last Admin: 11/01/17 22:08 Dose: Not Given Multivitamins/Minerals/Vitamin C (Tab-A-Vit -) 1 tab PO DAILY [facility] Last Admin: 11/02/17 10:03 Dose: 1 tab Non-Formulary Medication (Calcium Carb/Vitamin D3/Vit K1 [Calcium + D Soft Chewable Tab]) 1 each PO BID [facility] Pantoprazole Sodium (Protonix -) 40 mg PO DAILY [facility] Last Admin: 11/02/17 10:03 Dose: 40 mg Rosuvastatin Calcium (Crestor -) 20 mg PO HS [facility] Last Admin: 11/01/17 22:07 Dose: 20 mg Spironolactone (Aldactone -) 25 mg PO DAILY [facility] Last Admin: 11/02/17 10:03 Dose: 25 mg Tamoxifen Citrate (Tamoxifen Citrate) 20 mg PO DAILY [facility] Last Admin: 02/11/18 10:04 Dose: 20 mg - Objective Vital Signs: Vital Signs Temperature 98.4 F 11/02/17 08:27 Pulse Rate 65 11/02/17 08:27 Respiratory Rate 20 11/02/17 08:27 Blood Pressure 147/78 11/02/17 08:27 O2 Sat by Pulse Oximetry (%) 95 11/02/17 09:00 Constitutional: Yes: No Distress Cardiovascular: Yes: Regular Rate and Rhythm Respiratory: Yes: CTA Bilaterally Gastrointestinal: Yes: Normal Bowel Sounds, Soft. No: Tenderness Edema: No Labs: CBC, BMP 11/02/17 06:00 11/02/17 06:00 INR, PTT INR 1.40 (0.82-1.09) H 10/29/17 18:00 Problem List - Problems (1) Altered mental status Code(s): R41.82 - ALTERED MENTAL STATUS, UNSPECIFIED Qualifiers: Altered mental status type: disorientation Qualified Code(s): R41.0 - Disorientation, unspecified (2) Back pain Code(s): M54.9 - DORSALGIA, UNSPECIFIED (3) Breast cancer Code(s): C50.919 - MALIGNANT NEOPLASM OF UNSP SITE OF UNSPECIFIED FEMALE BREAST Qualifiers: Breast location: unspecified site of breast (4) Cerebral arteriosclerosis with history of previous stroke Code(s): I67.2 - CEREBRAL ATHEROSCLEROSIS; Z86.73 - PRSNL HX OF TIA (TIA), AND CEREB INFRC W/O RESID DEFICITS Assessment/Plan PLAN antibiotics-- dc iv acyclovir on hold resume IV fluids monitor renal function CSF -no growth continue with meds Neurology follow up Brain MRI noted Thoracic- lumbar spine MRI noted -- no spine mets Lumbar spine MRI pending
[2017-11-02] MEDS: SODIUM CHLORIDE 1,000 ML IV SCH ×2 (12:22→21:46)
[2017-11-02] MEDS: PATIENT'S OWN MEDICATION (NON-FORMULARY) (Calcium Carb/Vitamin D3/Vit K1 [Calcium + D Soft PO SCH (12:23)
--- NOTE | 2017-11-02 13:29 | PN ---
Progress Note, Physician History of Present Illness: Sensorium resolved to baseline, brain MRI shows old right MCA stroke. - Current Medication List Current Medications: Active Medications Acetaminophen (Tylenol -) 650 mg PO Q4H PRN PRN Reason: BACK PAIN Last Admin: 11/02/17 05:57 Dose: 650 mg Apixaban (Eliquis -) 5 mg PO BID [facility] Last Admin: 11/02/17 10:04 Dose: 5 mg Carvedilol (Coreg -) 25 mg PO BID [facility] Last Admin: 11/02/17 10:03 Dose: 25 mg Docusate Sodium (Colace -) 100 mg PO BID [facility] Last Admin: 11/02/17 10:03 Dose: 100 mg Enalapril Maleate (Vasotec -) 5 mg PO BID [facility] Last Admin: 11/02/17 10:03 Dose: 5 mg Acyclovir 750 mg/ Dextrose 115 mls @ 115 mls/hr IVPB Q8H-IV [facility] Last Admin: 11/02/17 01:06 Dose: 115 mls/hr Sodium Chloride (Normal Saline -) 1,000 mls @ 83 mls/hr IV ASDIR [facility] Last Admin: 11/02/17 12:22 Dose: Not Given Insulin Aspart (Novolog Vial Sliding Scale -) 1 vial SQ ACHS [facility] PRN Reason: Protocol Last Admin: 11/02/17 11:32 Dose: Not Given Melatonin (Melatonin) 5 mg PO [facility] Multivitamins/Minerals/Vitamin C (Tab-A-Vit -) 1 tab PO DAILY [facility] Last Admin: 11/02/17 10:03 Dose: 1 tab Pantoprazole Sodium (Protonix -) 40 mg PO DAILY [facility] Last Admin: 11/02/17 10:03 Dose: 40 mg Rosuvastatin Calcium (Crestor -) 20 mg PO HS [facility] Last Admin: 11/01/17 22:07 Dose: 20 mg Spironolactone (Aldactone -) 25 mg PO DAILY [facility] Last Admin: 11/02/17 10:03 Dose: 25 mg Tamoxifen Citrate (Tamoxifen Citrate) 20 mg PO DAILY [facility] Last Admin: 11/02/17 10:04 Dose: 20 mg - Objective Vital Signs: Vital Signs Temperature 98.4 F 11/02/17 08:27 Pulse Rate 65 11/02/17 08:27 Respiratory Rate 20 11/02/17 08:27 Blood Pressure 147/78 11/02/17 08:27 O2 Sat by Pulse Oximetry (%) 95 11/02/17 09:00 Constitutional: Yes: No Distress, Calm Neck: Yes: Supple Cardiovascular: Yes: Regular Rate and Rhythm Respiratory: Yes: Regular, Diminished Gastrointestinal: Yes: Normal Bowel Sounds, Soft, Abdomen, Obese Edema: No Labs: CBC, BMP 11/02/17 06:00 11/02/17 06:00 INR, PTT INR 1.40 (0.82-1.09) H 10/29/17 18:00 Problem List - Problems (1) Altered mental status Code(s): R41.82 - ALTERED MENTAL STATUS, UNSPECIFIED Qualifiers: Altered mental status type: disorientation Qualified Code(s): R41.0 - Disorientation, unspecified (2) Cerebral arteriosclerosis with history of previous stroke Code(s): I67.2 - CEREBRAL ATHEROSCLEROSIS; Z86.73 - PRSNL HX OF TIA (TIA), AND CEREB INFRC W/O RESID DEFICITS (3) Chronic anticoagulation Code(s): Z79.01 - LEARN TO SWIM INSTRUCTOR (CURRENT) USE OF ANTICOAGULANTS (4) Coronary artery disease Code(s): I25.10 - ATHSCL HEART DISEASE OF [place] CORONARY ARTERY W/O ANG PCTRS Qualifiers: Coronary Disease-Associated Artery/Lesion type: [place] artery [place] vs. transplanted heart: [place] heart Associated angina: without angina Qualified Code(s): I25.10 - Atherosclerotic heart disease of [place] coronary artery without angina pectoris (5) Deep vein thrombosis (DVT) of left lower extremity Code(s): I82.402 - ACUTE EMBOLISM AND THOMBOS UNSP DEEP VEINS OF L LOW EXTREM Qualifiers: Affected thrombotic vein of extremity: unspecified vein of extremity Chronicity: acute Qualified Code(s): I82.402 - Acute embolism and thrombosis of unspecified deep veins of left lower extremity (6) History of pulmonary embolus (PE) Code(s): Z86.711 - PERSONAL HISTORY OF PULMONARY EMBOLISM (7) Hypertension Code(s): I10 - ESSENTIAL (PRIMARY) HYPERTENSION Qualifiers: Hypertension type: essential hypertension Qualified Code(s): I10 - Essential (primary) hypertension (8) S/P coronary artery stent placement Code(s): Z95.5 - PRESENCE OF CORONARY ANGIOPLASTY IMPLANT AND GRAFT (9) Systolic dysfunction without heart failure Code(s): I51.9 - HEART DISEASE, UNSPECIFIED Assessment/Plan 08/13/2017 Mild-mod decreased LV fxn with mod dilated LV LVEF 46% 1. Fever, altered mental status, since resolved 2. ASHD, S/P DEAN mLAD ISR, angina pectoris 3. 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 History of right MCA CVA/stroke with residual deficit 5. 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 HTN/HCVD 7. Hypercholesterolemia 8. PVC 9. Carotid disease s/p right CEA 10. Breast ca s/p bilateral mastectomy with reconstruction 11. Acute on CKD pre-renal 12. H/o neurocardiogenic syncope with typical prodromal sxs PLAN: 1. Continue carvedilol 25 bid and Crestor 20 qhs. Started IVF and hold Vasotec and Aldactone pending renal recovery 2. Maintain on Eliquis 5 bid, GI prophylaxis 3. Empiric abx and acyclovir d/everardo per ID
[2017-11-02] MEDS: ROSUVASTATIN CA 20 MG TABLET (FP) PO SCH (21:41)
[2017-11-02] MEDS: MELATONIN 5 MG TABLETS PO SCH (21:42)
[2017-11-03] MEDS: INSULIN SLIDING SCALE (NOVOLOG) 1 VIAL SQ SCH ×4 (06:19→21:15)
[2017-11-03 07:38] LABS: ANION GAP 7 (8-16); BLOOD UREA NITROGEN 18 mg/dL (7-18); CALCIUM 7.9 mg/dL (8.5-10.1); CHLORIDE 113 mmol/L (98-107); CO2 25 mmol/L (21-32); GLUCOSE,RANDOM 83 mg/dL (74-106); POTASSIUM 4.3 mmol/L (3.5-5.1); SODIUM 145 mmol/L (136-145)
[2017-11-03 07:39] LABS: CREATININE 1.6 mg/dL (0.55-1.02)
[2017-11-03] MEDS ORDERED: PT OWN MED DRAWER 7, Y5N ONE ×3 (09:02→20:27)
[2017-11-03] MEDS: TAMOXIFEN CITRATE 10 MG TABLET PO SCH (09:05)
[2017-11-03] MEDS: PANTOPRAZOLE 40 MG TABLET (FP) PO SCH (09:05)
[2017-11-03] MEDS: MULTIVITAMINS (DAILY MVI) TABLET (FP) PO SCH (09:05)
[2017-11-03] MEDS: DOCUSATE SODIUM 100 MG CAPSULE (FP) PO SCH ×2 (09:05→21:15)
[2017-11-03] MEDS: APIXABAN 5 MG TABLET PO SCH ×2 (09:05→21:16)
[2017-11-03] MEDS: CARVEDILOL 25 MG TABLET (FP) PO SCH ×2 (09:05→21:15)
--- NOTE | 2017-11-03 10:28 | PN ---
Progress Note, Physician Chief Complaint: Events noted Not in distress History of Present Illness: Patient was seen and examined. Awake and alert. Chart was reviewed Denies chest pain, SOB or palpitations - Current Medication List Current Medications: Active Medications Acetaminophen (Tylenol -) 650 mg PO Q4H PRN PRN Reason: BACK PAIN Last Admin: 11/02/17 05:57 Dose: 650 mg Apixaban (Eliquis -) 5 mg PO BID [facility] Last Admin: 11/03/17 09:05 Dose: 5 mg Carvedilol (Coreg -) 25 mg PO BID [facility] Last Admin: 11/03/17 09:05 Dose: 25 mg Docusate Sodium (Colace -) 100 mg PO BID [facility] Last Admin: 11/03/17 09:05 Dose: 100 mg Sodium Chloride (Normal Saline -) 1,000 mls @ 83 mls/hr IV ASDIR [facility] Last Admin: 11/02/17 21:46 Dose: 83 mls/hr Insulin Aspart (Novolog Vial Sliding Scale -) 1 vial SQ ACHS [facility] PRN Reason: Protocol Last Admin: 11/03/17 06:19 Dose: Not Given Melatonin (Melatonin) 5 mg PO HS [facility] Last Admin: 11/02/17 21:42 Dose: 5 mg Multivitamins/Minerals/Vitamin C (Tab-A-Vit -) 1 tab PO DAILY [facility] Last Admin: 11/03/17 09:05 Dose: 1 tab Pantoprazole Sodium (Protonix -) 40 mg PO DAILY [facility] Last Admin: 11/03/17 09:05 Dose: 40 mg Rosuvastatin Calcium (Crestor -) 20 mg PO HS [facility] Last Admin: 11/02/17 21:41 Dose: 20 mg Tamoxifen Citrate (Tamoxifen Citrate) 20 mg PO DAILY [facility] Last Admin: 11/03/17 09:05 Dose: 20 mg - Objective Vital Signs: Vital Signs Temperature 98.3 F 11/03/17 09:00 Pulse Rate 78 11/03/17 10:16 Respiratory Rate 20 11/03/17 09:00 Blood Pressure 190/77 11/03/17 10:16 O2 Sat by Pulse Oximetry (%) 95 11/03/17 09:00 Eyes: Yes: PERRL HENT: Yes: Atraumatic Neck: Yes: Supple Cardiovascular: Yes: Regular Rate and Rhythm, S1, S2 Respiratory: Yes: CTA Bilaterally Gastrointestinal: Yes: Normal Bowel Sounds, Soft. No: Tenderness Edema: No Labs: CBC, BMP 11/02/17 06:00 11/03/17 06:30 Problem List - Problems (1) Altered mental status Code(s): R41.82 - ALTERED MENTAL STATUS, UNSPECIFIED Qualifiers: Altered mental status type: disorientation Qualified Code(s): R41.0 - Disorientation, unspecified (2) Sepsis Code(s): A41.9 - SEPSIS, UNSPECIFIED ORGANISM (3) [id number] kidney injury Code(s): N17.9 - ACUTE KIDNEY FAILURE, UNSPECIFIED; N18.9 - CHRONIC KIDNEY DISEASE, UNSPECIFIED Qualifiers: Acute renal failure type: unspecified Chronic kidney disease stage: unspecified stage Qualified Code(s): N17.9 - Acute kidney failure, unspecified ; N18.9 - Chronic kidney disease, unspecified; N18.9 - Chronic kidney disease, unspecified (4) Breast cancer Code(s): C50.919 - MALIGNANT NEOPLASM OF UNSP SITE OF UNSPECIFIED FEMALE BREAST Qualifiers: Breast location: unspecified site of breast (5) Cerebral arteriosclerosis with history of previous stroke Code(s): I67.2 - CEREBRAL ATHEROSCLEROSIS; Z86.73 - PRSNL HX OF TIA (TIA), AND CEREB INFRC W/O RESID DEFICITS (6) Coronary artery disease Code(s): I25.10 - ATHSCL HEART DISEASE OF [place] CORONARY ARTERY W/O ANG PCTRS Qualifiers: Coronary Disease-Associated Artery/Lesion type: [place] artery [place] vs. transplanted heart: [place] heart Associated angina: without angina Qualified Code(s): I25.10 - Atherosclerotic heart disease of [place] coronary artery without angina pectoris (7) Deep vein thrombosis (DVT) of left lower extremity Code(s): I82.402 - ACUTE EMBOLISM AND THOMBOS UNSP DEEP VEINS OF L LOW EXTREM Qualifiers: Affected thrombotic vein of extremity: unspecified vein of extremity Chronicity: acute Qualified Code(s): I82.402 - Acute embolism and thrombosis of unspecified deep veins of left lower extremity (8) History of pulmonary embolus (PE) Code(s): Z86.711 - PERSONAL HISTORY OF PULMONARY EMBOLISM (9) Hypertension Code(s): I10 - ESSENTIAL (PRIMARY) HYPERTENSION Qualifiers: Hypertension type: essential hypertension Qualified Code(s): I10 - Essential (primary) hypertension (10) Near syncope Code(s): R55 - SYNCOPE AND COLLAPSE (11) Premature ventricular contraction Code(s): I49.3 - VENTRICULAR PREMATURE DEPOLARIZATION (12) S/P coronary artery stent placement Code(s): Z95.5 - PRESENCE OF CORONARY ANGIOPLASTY IMPLANT AND GRAFT (13) Systolic dysfunction without heart failure Code(s): I51.9 - HEART DISEASE, UNSPECIFIED Assessment/Plan 1. Fever, altered mental status - resolved 2. ASHD, S/P DEAN to mid LAD, angina pectoris 3. LV systolic dysfunction post chemotherapy (LVEF 46%) 4. History of right MCA CVA/stroke with residual deficit 5. 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 HTN/HCVD 7. Hypercholesterolemia 8. PVC 9. Carotid disease s/p right CEA 10. Breast cancer s/p bilateral mastectomy with reconstruction 11. Acute on CKD pre-renal 12. History of neurocardiogenic syncope with typical prodromal symptom PLAN: 1. Continue Carvedilol, Amlodipine and Crestor. Vasotec and Aldactone are held pending renal recovery 2. Maintain on Eliquis 5 bid with GI prophylaxis 3. Antibiotic has been stopped 4. Monitor BP and adjust above medication as needed Further plans are to follow Mitchel Moeller MD
--- NOTE | 2017-11-03 10:37 | PN ---
Progress Note, Physician History of Present Illness: Awake, alert, oriented x3 Complains of LE weakness No c/o fever/ chills Afebrile WBC WNL ESR, CRP WNL Blood, CSF c/s no growth - Current Medication List Current Medications: Active Medications Acetaminophen (Tylenol -) 650 mg PO Q4H PRN PRN Reason: BACK PAIN Last Admin: 11/02/17 05:57 Dose: 650 mg Apixaban (Eliquis -) 5 mg PO BID [facility] Last Admin: 11/03/17 09:05 Dose: 5 mg Carvedilol (Coreg -) 25 mg PO BID [facility] Last Admin: 11/03/17 09:05 Dose: 25 mg Docusate Sodium (Colace -) 100 mg PO BID [facility] Last Admin: 11/03/17 09:05 Dose: 100 mg Sodium Chloride (Normal Saline -) 1,000 mls @ 83 mls/hr IV ASDIR [facility] Last Admin: 11/02/17 21:46 Dose: 83 mls/hr Insulin Aspart (Novolog Vial Sliding Scale -) 1 vial SQ ACHS [facility] PRN Reason: Protocol Last Admin: 11/03/17 06:19 Dose: Not Given Melatonin (Melatonin) 5 mg PO HS [facility] Last Admin: 11/02/17 21:42 Dose: 5 mg Multivitamins/Minerals/Vitamin C (Tab-A-Vit -) 1 tab PO DAILY [facility] Last Admin: 11/03/17 09:05 Dose: 1 tab Pantoprazole Sodium (Protonix -) 40 mg PO DAILY [facility] Last Admin: 11/03/17 09:05 Dose: 40 mg Rosuvastatin Calcium (Crestor -) 20 mg PO HS [facility] Last Admin: 11/02/17 21:41 Dose: 20 mg Tamoxifen Citrate (Tamoxifen Citrate) 20 mg PO DAILY [facility] Last Admin: 11/03/17 09:05 Dose: 20 mg - Objective Vital Signs: Vital Signs Temperature 98.3 F 11/03/17 09:00 Pulse Rate 78 11/03/17 10:16 Respiratory Rate 20 11/03/17 09:00 Blood Pressure 190/77 11/03/17 10:16 O2 Sat by Pulse Oximetry (%) 95 11/03/17 09:00 Constitutional: Yes: No Distress Eyes: Yes: Conjunctiva Clear Cardiovascular: Yes: Regular Rate and Rhythm, S1, S2 Respiratory: Yes: CTA Bilaterally Gastrointestinal: Yes: Normal Bowel Sounds, Soft. No: Tenderness Labs: CBC, BMP 11/02/17 06:00 11/03/17 06:30 INR, PTT INR 1.40 (0.82-1.09) H 10/29/17 18:00 Assessment/Plan Fever, altered mental status, abnormal CSF Low clinical suspicion for meningitis Breast ca Back and leg pain Clinically improved CSF c/s no growth Antibiotics D/C'd D/C acyclovir, observe off
--- NOTE | 2017-11-03 11:26 | PN ---
Progress Note (short form) - Note Progress Note: Pt seen/ examined chart reviewed. Alert and awake comfortable denies pain denies any hallucinations Vital Signs Temp 98.3 F 11/03/17 09:00 Pulse 78 11/03/17 10:16 Resp 20 11/03/17 09:00 BP 190/77 11/03/17 10:16 Pulse Ox 95 11/03/17 09:00 Intake & Output 11/02/17 11/02/17 11/03/17 11:59 23:59 11:59 Intake Total 400 1476 Balance 400 1476 Intake: IV 996 Normal Saline - 1,000 ml 996 @ 83 mls/hr IV ASDIR [facility] Rx#:[id number] Oral 400 480 Other: Voiding Method Toilet Toilet Diaper # Unmeasured Voids Void 3 Bowel Movement Yes Active Medications Acetaminophen (Tylenol -) 650 mg PO Q4H PRN PRN Reason: BACK PAIN Last Admin: 11/02/17 05:57 Dose: 650 mg Amlodipine Besylate (Norvasc -) 5 mg PO DAILY [facility] Apixaban (Eliquis -) 5 mg PO BID [facility] Last Admin: 11/03/17 09:05 Dose: 5 mg Carvedilol (Coreg -) 25 mg PO BID [facility] Last Admin: 11/03/17 09:05 Dose: 25 mg Docusate Sodium (Colace -) 100 mg PO BID [facility] Last Admin: 11/03/17 09:05 Dose: 100 mg Sodium Chloride (Normal Saline -) 1,000 mls @ 83 mls/hr IV ASDIR [facility] Last Admin: 11/02/17 21:46 Dose: 83 mls/hr Insulin Aspart (Novolog Vial Sliding Scale -) 1 vial SQ ACHS [facility] PRN Reason: Protocol Last Admin: 11/03/17 11:25 Dose: Not Given Melatonin (Melatonin) 5 mg PO [facility] Last Admin: 11/02/17 21:42 Dose: 5 mg Multivitamins/Minerals/Vitamin C (Tab-A-Vit -) 1 tab PO DAILY [facility] Last Admin: 11/03/17 09:05 Dose: 1 tab Pantoprazole Sodium (Protonix -) 40 mg PO DAILY [facility] Last Admin: 11/03/17 09:05 Dose: 40 mg Rosuvastatin Calcium (Crestor -) 20 mg PO [facility] Last Admin: 11/02/17 21:41 Dose: 20 mg Tamoxifen Citrate (Tamoxifen Citrate) 20 mg PO DAILY [facility] Last Admin: 11/03/17 09:05 Dose: 20 mg CBC, BMP 11/02/17 06:00 11/03/17 06:30 Microbiology 10/29/17 18:00 Blood Culture - Preliminary Blood - Peripheral Venous NO GROWTH OBTAINED AFTER 96 HOURS, INCUBATION TO CONTINUE FOR 1 DAYS. 10/29/17 18:00 Blood Culture - Preliminary Blood - Peripheral Venous NO GROWTH OBTAINED AFTER 96 HOURS, INCUBATION TO CONTINUE FOR 1 DAYS. Objective Constitutional: Yes: No Distress. comfortable Cardiovascular: Yes: Regular Rate and Rhythm Respiratory: Yes: CTA Bilaterally Gastrointestinal: Yes: Normal Bowel Sounds, Soft. No: Tenderness Edema: No Neuro- Alert and awake. Problem List - Problems (1) Altered mental status Code(s): R41.82 - ALTERED MENTAL STATUS, UNSPECIFIED Qualifiers: Altered mental status type: disorientation Qualified Code(s): R41.0 - Disorientation, unspecified (2) Back pain Code(s): M54.9 - DORSALGIA, UNSPECIFIED (3) Breast cancer Code(s): C50.919 - MALIGNANT NEOPLASM OF UNSP SITE OF UNSPECIFIED FEMALE BREAST Qualifiers: Breast location: unspecified site of breast (4) Cerebral arteriosclerosis with history of previous stroke Code(s): I67.2 - CEREBRAL ATHEROSCLEROSIS; Z86.73 - PRSNL HX OF TIA (TIA), AND CEREB INFRC W/O RESID DEFICITS Assessment/Plan Better antibiotics-- dc iv acyclovir d/everardo IV fluids-mild hydration monitor renal function-- better CSF -no growth continue with meds Neurology follow up Brain MRI noted Thoracic- lumbar spine MRI noted -- no spine mets Lumbar spine MRI pending . bp high add norvasc and monitor discharge planning. pt oob- chair. discssed with nursing staff. If stable- Anticipate d/c in am. Pt also in agreement. will follow time spend 25 min. Problem List - Problems (1) Sepsis Code(s): A41.9 - SEPSIS, UNSPECIFIED ORGANISM (2) Altered mental status Code(s): R41.82 - ALTERED MENTAL STATUS, UNSPECIFIED Qualifiers: Altered mental status type: disorientation Qualified Code(s): R41.0 - Disorientation, unspecified (3) Breast cancer Code(s): C50.919 - MALIGNANT NEOPLASM OF UNSP SITE OF UNSPECIFIED FEMALE BREAST Qualifiers: Breast location: unspecified site of breast (4) Cerebral arteriosclerosis with history of previous stroke Code(s): I67.2 - CEREBRAL ATHEROSCLEROSIS; Z86.73 - PRSNL HX OF TIA (TIA), AND CEREB INFRC W/O RESID DEFICITS (5) History of pulmonary embolus (PE) Code(s): Z86.711 - PERSONAL HISTORY OF PULMONARY EMBOLISM (6) S/P coronary artery stent placement Code(s): Z95.5 - PRESENCE OF CORONARY ANGIOPLASTY IMPLANT AND GRAFT
[2017-11-03] MEDS ORDERED: INSULIN (NOVOLOG) ASPART 100 UNITS/ML 10ML VIAL ONE (11:35)
[2017-11-03] MEDS: SODIUM CHLORIDE 1,000 ML IV SCH (11:37)
[2017-11-03] MEDS: amLODIPine BESYLATE 5 MG TABLET (FP) PO SCH (11:37)
--- NOTE | 2017-11-03 16:44 | PN ---
Progress Note (short form) - Note Progress Note: Patient seen and examined Feels much better. Clinically improved. sitting and ea Last Vital Signs Temp Pulse Resp BP Pulse Ox 98.8 F 82 18 152/66 95 11/03/17 12:55 11/03/17 12:55 11/03/17 12:55 11/03/17 12:59 11/03/17 09:00 Cor: RSR, No murmurs, No gallops Lungs: Clear to P&A Abd: Soft, Normal bowel sounds, No organomegaly Ext:No significant edema Abnormal Lab Results 11/03/17 06:30 Chloride 113 H Anion Gap 7 L Creatinine 1.6 H Calcium 7.9 L Active Medications Generic Name Dose Route Start Last Admin Trade Name Freq PRN Reason Stop Dose Admin Acetaminophen 650 mg 11/02/17 05:36 11/02/17 05:57 Tylenol - PO 650 mg Q4H PRN Administration BACK PAIN Amlodipine Besylate 5 mg 11/03/17 11:30 11/03/17 11:37 Norvasc - PO 5 mg DAILY [facility] Administration Apixaban 5 mg 10/31/17 22:00 11/03/17 09:05 Eliquis - PO 5 mg BID [facility] Administration Carvedilol 25 mg 10/31/17 22:00 11/03/17 09:05 Coreg - PO 25 mg BID [facility] Administration Docusate Sodium 100 mg 10/31/17 22:00 11/03/17 09:05 Colace - PO 100 mg BID [facility] Administration Sodium Chloride 1,000 mls @ 83 mls/hr 11/02/17 11:45 11/03/17 11:37 Normal Saline - IV 83 mls/hr ASDIR [facility] Administration Insulin Aspart 1 vial 10/30/17 07:00 11/03/17 11:25 Novolog Vial Sliding Scale - SQ Not Given ACHS [facility] Protocol Melatonin 5 mg 11/02/17 11:40 11/02/17 21:42 Melatonin PO 5 mg HS [facility] Administration Multivitamins/Minerals/Vitamin C 1 tab 11/01/17 13:00 11/03/17 09:05 Tab-A-Vit - PO 1 tab DAILY [facility] Administration Pantoprazole Sodium 40 mg 11/01/17 10:00 11/03/17 09:05 Protonix - PO 40 mg DAILY [facility] Administration Rosuvastatin Calcium 20 mg 10/31/17 22:00 11/02/17 21:41 Crestor - PO 20 mg HS [facility] Administration Tamoxifen Citrate 20 mg 11/01/17 10:00 11/03/17 09:05 Tamoxifen Citrate PO 20 mg DAILY [facility] Administration A/P 67 yo F with h/o HTN, HLD, NIDDM, CKD, CAD s/p R CEA, MS s/p stent placement, CVA, BRCA+ Breast Ca ( Tamoxifen) , PE, and DVTs, who presents with acute onset left sided back pain beginning over last 2 days, altered mental status, and rectal temp in ED 101.0. Reports dysuria of unknown duration, with absent hematuria. Became increasingly confused in ED. Received antibiotics Suspect current scenario is suspicious for infection/delirium/seizure. and back pain due to DJD? ? neurocardigenic syncope h/o breast cancer, Left in 2011, s/p lumpectomy,chemotherapy/RTwas on arimidex h/o T1c , N0, ER+/GA-/HEr2 + by FISH ,stage IA,poorly differentiated right breast cancer 01/05, while on arimidex for early stage left breast cancer. .h/o b /l mastectomies 02/04. h/o BRCA positivity h/o ELIZABETH/BSO at age 26 Due to multiple comorbidities including LV dysfunction LVEF--25% on echo and 33% on MUGA. She refused adjuvant chemotherapy. Due to decreased EF was not a candidate for herceptin She was switched to tamoxifen Bone scan 07/[address] chest 07/08 showed several small pulmonary nodules < 1cm in size stable since 10/08 CT head non con neg. CT a/p done yesterday showed no mets MRI brain is negative. JESSICA T spine shows disk disease Will check MRI L spine DVT/PE --recurrent--continue eliquis Thyroid nodules--needs follow up
[2017-11-03] MEDS: MELATONIN 5 MG TABLETS PO SCH (21:16)
[2017-11-03] MEDS: ROSUVASTATIN CA 20 MG TABLET (FP) PO SCH (21:16)
[2017-11-04] MEDS: INSULIN SLIDING SCALE (NOVOLOG) 1 VIAL SQ SCH ×2 (06:09→11:46)
[2017-11-04 07:33] LABS: BASO % 1.2 % (0-2.0); EOS % 4.7 % (0-4.5); HEMOGLOBIN 9.8 GM/dL (10.7-15.3); LYMPH % 39.9 % (8-40); MCH 27.3 pg (25.7-33.7); MCHC 31.8 g/dl (32.0-36.0); MEAN CELL VOLUME 85.9 fl (80-96); MEAN PLT VOLUME 8.8 fl (7.5-11.1); MONO % 8.8 % (3.8-10.2); NEUT % 45.4 % (42.8-82.8); PLATELET COUNT 210 K/MM3 (134-434); RBC 3.61 M/mm3 (3.60-5.2); RDW 14.2 % (11.6-15.6); WHITE BLOOD COUNT 5.7 K/mm3 (4.0-10.0)
[2017-11-04 07:55] LABS: CHLORIDE 110 mmol/L (98-107); POTASSIUM 4.4 mmol/L (3.5-5.1); SODIUM 142 mmol/L (136-145)
[2017-11-04 08:03] LABS: ALBUMIN 3.1 g/dl (3.4-5.0); ALK PHOS 41 U/L (45-117); ANION GAP 5 (8-16); BILIRUBIN,TOTAL 0.7 mg/dL (0.2-1.0); BLOOD UREA NITROGEN 17 mg/dL (7-18); CALCIUM 8.5 mg/dL (8.5-10.1); CO2 27 mmol/L (21-32); CREATININE 1.3 mg/dL (0.55-1.02); GLUCOSE,RANDOM 86 mg/dL (74-106); SGOT/AST 14 U/L (15-37); SGPT/ALT 18 U/L (12-78); TOT PROT 5.7 g/dl (6.4-8.2)
[2017-11-04] MEDS ORDERED: PT OWN MED DRAWER 7, Y5N ONE (09:41)
[2017-11-04] MEDS: amLODIPine BESYLATE 5 MG TABLET (FP) PO SCH (09:42)
[2017-11-04] MEDS: CARVEDILOL 25 MG TABLET (FP) PO SCH (09:42)
[2017-11-04] MEDS: PANTOPRAZOLE 40 MG TABLET (FP) PO SCH (09:42)
[2017-11-04] MEDS: MULTIVITAMINS (DAILY MVI) TABLET (FP) PO SCH (09:42)
[2017-11-04] MEDS: DOCUSATE SODIUM 100 MG CAPSULE (FP) PO SCH (09:42)
[2017-11-04] MEDS: APIXABAN 5 MG TABLET PO SCH (09:43)
[2017-11-04] MEDS: TAMOXIFEN CITRATE 10 MG TABLET PO SCH (09:44)
[2017-11-04 10:52] VITALS: BP 156/80; PULSE 89; TEMP 98.4
[2017-11-04] MEDS: SODIUM CHLORIDE 1,000 ML IV SCH (11:46)
--- NOTE | 2017-11-04 11:54 | DS ---
Physical Examination Vital Signs: Vital Signs Temperature 98.4 F 11/04/17 10:00 Pulse Rate 89 11/04/17 10:00 Respiratory Rate 18 11/04/17 10:00 Blood Pressure 156/80 11/04/17 10:00 O2 Sat by Pulse Oximetry (%) 97 11/03/17 21:00 Constitutional: Yes: No Distress, Calm Cardiovascular: Yes: Regular Rate and Rhythm Respiratory: Yes: CTA Bilaterally Gastrointestinal: Yes: Normal Bowel Sounds, Soft, Abdomen, Obese. No: Tenderness Edema: No Labs: CBC, BMP 11/04/17 06:00 11/04/17 06:00 Discharge Summary Reason For Visit: ALTERED MENTAL STATUS Current Active Problems Alopecia areata (Acute) Altered mental status (Acute) Sepsis (Acute) Hospital Course: admitted for AMS_ CT head, brain MRI negative Seen by ID> Neurology and oncology She was empirically placed on iv Acyclovir and antibiotics CSF-- negative, cultures negative-- antibiotics and acyclovir dc Thoracic spine -- no metastatic lesions Pt needs Lumbar spine but can not tolerate closed MRI -- stable for dc, able to ambulate with walker-- will dc home , advised her to follow up with us in 1 week, will arrange for open MRI LS Spine Condition: Fair - Instructions Diet, Activity, Other Instructions: f0llow up in office this week for arranging open MRI for lumbar spine Referrals: Shreya Best MD [Staff Physician] - Disposition: HOME - Home Medications Comprehensive Discharge Medication List: Ambulatory Orders Docusate Sodium 100 mg PO BID 06/03/16 Multivitamin [Poly-Vitamin] 1 each PO DAILY 06/03/16 Omeprazole [Prilosec] 40 mg PO DAILY 06/03/16 Apixaban [Eliquis] 5 mg PO BID 08/25/17 Calcium Carb/Vitamin D3/Vit K1 [Calcium + D Soft Chewable Tab] 1 each PO BID 01/06 Tamoxifen Citrate 20 mg PO DAILY 08/25/17 Calcium 500Mg/Vit-D 200 Units [Os-Jose 500+D -] 1 tab PO BID tab 08/28/17 Carvedilol [Coreg -] 25 mg PO BID tablet 08/28/17 Enalapril Maleate [Vasotec -] 5 mg PO BID tablet 08/28/17 Rosuvastatin [Crestor -] 20 mg PO HS tablet 08/28/17 Spironolactone [Aldactone -] 25 mg PO DAILY tablet 08/28/17
== END 2017-11-04 13:00 | disposition home or self-care (01) | DRG 871 ==
LOC: JER 15:53 → JERBED 10-30 01:19 → UNDOADMIN 10-30 01:27 → JERBED 10-30 01:27 → J7W 10-30 03:52
PROVIDERS: ADMIT Internal Medicine; ATTEND Internal Medicine
PROC: 009U3ZZ Drainage of Spinal Canal, Percutaneous Approach (ICD-10-PCS; principal; 2017-10-29)
DX: A41.9 Sepsis, unspecified organism (principal); G93.41 Metabolic encephalopathy; I69.354 Hemiplegia and hemiparesis following cerebral infarction affecting left non-dominant side; N17.9 Acute kidney failure, unspecified; I31.3 Pericardial effusion (noninflammatory); I25.10 Atherosclerotic heart disease of native coronary artery without angina pectoris; I25.2 Old myocardial infarction; E78.5 Hyperlipidemia, unspecified; K21.9 Gastro-esophageal reflux disease without esophagitis; M54.89 Other dorsalgia; L63.9 Alopecia areata, unspecified; R41.82 Altered mental status, unspecified; K76.0 Fatty (change of) liver, not elsewhere classified; R91.8 Other nonspecific abnormal finding of lung field; H53.149 Visual discomfort, unspecified; M19.90 Unspecified osteoarthritis, unspecified site; I13.10 Hypertensive heart and chronic kidney disease without heart failure, with stage 1 through stage 4 chronic kidney disease, or unspecified chronic kidney disease; E11.22 Type 2 diabetes mellitus with diabetic chronic kidney disease; C50.912 Malignant neoplasm of unspecified site of left female breast; C50.911 Malignant neoplasm of unspecified site of right female breast; N18.9 Chronic kidney disease, unspecified; Z79.4 Long term (current) use of insulin; Z87.891 Personal history of nicotine dependence; Z86.711 Personal history of pulmonary embolism; Z86.718 Personal history of other venous thrombosis and embolism
CPT/HCPCS: 36415; 70450-TC; 70553-TC; 71045-TC-FY; 72147-TC; 72149-TC; 74176; 80048; 80053; 80307; 81003; 82607; 82746; 82945; 82962; 83605; 84110; 84146; 84157; 84443; 85025; 85027; 85610; 85651; 86140; 86593; 86850; 86900; 86901; 87040; 87070; 87086; 87205; 87449; 87529; 87804; 89050; 93005; 93010; 97116-GP; 97161-GP; 99285-25

== ENCOUNTER 2017-11-20 04:09 | Emergency (ER) | payer OTHER ==
[2017-11-20 04:17] VITALS: BMI 22.6
--- NOTE | 2017-11-20 05:18 | PDOC ---
Attending Attestation - Resident Resident Name: Ladi Yates - ED Attending Attestation I have performed the following: I have examined & evaluated the patient, The case was reviewed & discussed with the resident, I agree w/resident's findings & plan, Exceptions are as noted - HPI HPI: 11/20/17 06:07 complaint of that started midnight this evening. Patient denies chest pain or shortness of breath - Physicial Exam PE: 11/20/17 06:06 Physical Exam General Appearance: Yes: Appropriately Dressed. No: Apparent Distress, Intoxicated HEENT: positive: EOMI, JEANE, Normal ENT Inspection, Normal Voice, TMs Normal, Pharynx Normal. negative: Pale Conjunctivae, Photophobia, Scleral Icterus (R), Scleral Icterus (L) Neck: positive: Trachea midline, Normal Thyroid, Supple. negative: Tender, Rigid, Carotid bruit, Stridor, Lymphadenopathy (R), Lymphadenopathy (L), Thyromegaly Respiratory/Chest: positive: Lungs Clear, Normal Breath Sounds. negative: Chest Tender, Respiratory Distress, Accessory Muscle Use, Labored Respiration, RES, Crackles, Rales, Rhonchi, Stridor, Wheezing, Dullness Cardiovascular: positive: Regular Rhythm, Regular Rate, S1, S2. negative: Edema , JVD, Murmur, Bradycardia, Tachycardia Vascular Pulses: Dorsalis-Pedis (R): 2+, Doralis-Pedis (L): 2+ Gastrointestinal/Abdominal: positive: Normal Bowel Sounds, Flat, Soft. negative : Tender, Organomegaly, Pulsatile Mass, Increased Bowel Sounds, Decreased BS, Distended, Guarding, Rebound, Hernia, Hepatomegaly, Spleenomegaly Lymphatic: negative: Adenopathy, Tenderness Musculoskeletal: positive: Normal Inspection. negative: CVA Tenderness, Decreased Range of Motion Extremity: positive: Normal Capillary Refill, Normal Inspection, Normal Range of Motion, Pelvis Stable. negative: Tender, Pedal Edema, Swelling, Erythema Integumentary: positive: Normal Color, Dry, Warm. 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 negative: EOM Palsy, Facial Droop, Sensory Deficit
--- NOTE | 2017-11-20 05:27 | PDOC ---
History of Present Illness - General Chief Complaint: Weakness Stated Complaint: POSSIBLE STROKE History Source: Patient Exam Limitations: No Limitations - History of Present Illness Initial Comments: 11/20/17 05:22 67 F with PMH HTN, DM, CKD, s/p R carotid endarterectomy, [place] s/p stents, CVA ( with residual L sided weakness), BRCA+ (Breast Ca- on Tamoxifen), hx PE, DVT ( On Eliquis), who presents to the ED c/o "stroke symptoms" over the past five hours. As per pt, around midnight, she felt that she was having a stroke since her speech was more slurred than usual, and she felt dizzy. During this time, she also noticed weakness in her LUE and generalized occipital MONTIEL, with 10/10 pain. Denies fever, chills, or changes in urinary or bowel function. At baseline, pt lives alone at home and ambulates with a rolling walker. She has a health aid. During ED visit, pt states that she "feels better" than when she first came in. Stroke scale score 5-6, however difficult to assess as pt with residual L sided weakness from past stroke. PMH: as above PsxH: hysterectomy, L sided lumpectomy meds: as in chart allergies: NKDA FH: father- stroke SH: quit smoking years ago, unaware of how long smoked for. denies alcohol or recreational drug use Past History - Travel Traveled outside of the country in the last 30 days: No - Past Medical History Allergies/Adverse Reactions: Allergies Allergy/AdvReac Type Severity Reaction Status Date / Time No Known Drug Allergies Allergy Verified 11/20/17 04:14 Home Medications: Ambulatory Orders Docusate Sodium 100 mg PO BID 06/03/16 Multivitamin [Poly-Vitamin] 1 each PO DAILY 06/03/16 Omeprazole [Prilosec] 40 mg PO DAILY 06/03/16 Apixaban [Eliquis] 5 mg PO BID 08/25/17 Calcium Carb/Vitamin D3/Vit K1 [Calcium + D Soft Chewable Tab] 1 each PO BID 01/06 Tamoxifen Citrate 20 mg PO DAILY 08/25/17 Calcium 500Mg/Vit-D 200 Units [Os-Jose 500+D -] 1 tab PO BID tab 08/28/17 Carvedilol [Coreg -] 25 mg PO BID tablet 08/28/17 Enalapril Maleate [Vasotec -] 5 mg PO BID tablet 08/28/17 Rosuvastatin [Crestor -] 20 mg PO HS tablet 08/28/17 Spironolactone [Aldactone -] 25 mg PO DAILY tablet 08/28/17 Cancer: Yes (both breast) Cardiac Disorders: Yes (cad) CVA: Yes (x3) COPD: No Diabetes: Yes GI Disorders: Yes (GERD) Disorders: No HTN: Yes Hypercholesterolemia: Yes Liver Disease: No Thyroid Disease: No - Surgical History Cardiac Surgery: Yes (card stent x2) Lung Surgery: No Orthopedic Surgery: Yes (R. Foot bunionectomy) - Immunization History Immunization Up to Date: Yes - Suicide/Smoking/Psychosocial Hx Smoking Status: No Smoking History: Never smoked Have you smoked in the past 12 months: No Number of Cigarettes Smoked Daily: 0 If you are a former smoker, when did you quit?: 6 YEARS AGO Information on smoking cessation initiated: No Hx Alcohol Use: No Drug/Substance Use Hx: No Substance Use Type: None Hx Substance Use Treatment: No Review of Systems - Review of Systems Able to Perform ROS?: Yes Is the patient limited Vietnamese proficient: No Musculoskeletal: Yes: Muscle Weakness Neurological: Yes: Headache, Numbness All Other Systems: Reviewed and Negative *Physical Exam - Vital Signs Last Vital Signs Temp Pulse Resp BP Pulse Ox 98.7 F 81 18 153/94 98 11/20/17 04:15 11/20/17 04:15 11/20/17 04:15 11/20/17 04:15 11/20/17 04:15 - Physical Exam General Appearance: Yes: Nourished, Appropriately Dressed, Other (in no acute distress) HEENT: positive: EOMI, JEANE, Other (poor dentition) Neck: positive: Supple Cardiovascular: positive: Regular Rhythm, Regular Rate, S1, S2 Vascular Pulses: Dorsalis-Pedis (R): 2+, Doralis-Pedis (L): 2+ Gastrointestinal/Abdominal: positive: Normal Bowel Sounds, Soft Musculoskeletal: positive: Decreased Range of Motion (LUE, LLE. 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 Will get CT head non con to r/o bleed and reassess. Will also get EKG, trops. Clinically pt states that she is "feeling better" than when she first came in. 11/20/17 06:03 CT has returned - old infarcts (right parietal, lacunar) without evidence of acute pathology- 11/20/17 06:05 await trop, EKG 11/20/17 06:14 EKG: sinus rhythm, possible anterior infarct, qtc 447ms await trop, CBC CMP
[2017-11-20 06:32] LABS: EOS % 2.9 % (0-4.5); HEMATOCRIT 35.1 % (32.4-45.2); HEMOGLOBIN 11.5 GM/dL (10.7-15.3); LYMPH % 37.1 % (8-40); MCH 28.2 pg (25.7-33.7); MCHC 32.7 g/dl (32.0-36.0); MEAN CELL VOLUME 86.3 fl (80-96); MEAN PLT VOLUME 9.9 fl (7.5-11.1); PLATELET COUNT 355 K/MM3 (134-434); RBC 4.07 M/mm3 (3.60-5.2); RDW 14.2 % (11.6-15.6); WHITE BLOOD COUNT 5.8 K/mm3 (4.0-10.0)
[2017-11-20 06:51] LABS: INR 1.1 (0.82-1.09); PROTHROMBIN TIME (PATIENT) 12.4 SEC (9.98-11.88)
[2017-11-20 06:54] LABS: ACTIVATED PTT 24.4 SECONDS (26.9-34.4)
--- NOTE | 2017-11-20 07:10 | PDOC ---
*Physical Exam - Vital Signs Last Vital Signs Temp Pulse Resp BP Pulse Ox 98.7 F 81 18 153/94 98 11/20/17 04:15 11/20/17 04:15 11/20/17 04:15 11/20/17 04:15 11/20/17 04:15 - Physical Exam Comments: 11/20/17 07:29 General Appearance: Nourished. No Apparent Distress HEENT: EOMI, JEANE. Neck: No Cervical Lymphadenopathy Respiratory/Chest: Lungs Clear, Normal Breath Sounds. No Crackles, Rales, Rhonchi, Wheezing Cardiovascular: Regular Rhythm, Regular Rate. No Murmur, Gallops, Rubs Gastrointestinal/Abdominal: Normal Bowel Sounds, Soft. 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 No new deficits noted on physical exam. ED Treatment Course - LABORATORY CBC & Chemistry Diagram: 11/20/17 06:27 11/20/17 07:50 - ADDITIONAL ORDERS Additional order review: Laboratory Results 11/20/17 06:27 PT with INR 12.40 H INR 1.10 PTT (Actin FS) 24.4 L D 11/20/17 06:27 RBC 4.07 MCV 86.3 MCHC 32.7 RDW 14.2 MPV 9.9 D Neutrophils % 49.0 Lymphocytes % 37.1 Monocytes % 10.0 Eosinophils % 2.9 Basophils % 1.0 Progress Note - Progress Note Progress Note: The patient is a 67 F with PMH HTN, DM, CKD, s/p R carotid endarterectomy, [place] s/ p stents, CVA (with residual L sided weakness), BRCA+ (Breast Ca- on Tamoxifen) , hx PE, DVT (On Eliquis), who presents to the ED for evaluation of "stroke symptoms". The patient initially reported concerns for weakness on the left, but has notable residual left sided deficits due to a prior CVA. She reports improvement in her symptoms since arrival to the ED. Head CT was negative here in the ED. She is pending lab results and likely dispo home if lab results are negative. Medical Decision Making - Medical Decision Making 11/20/17 08:59 CBC, cmp, troponin, are unremarkable. We are comfortable discharging the patient home at this time with primary care provider follow up. We have made transportation and arrangements with the patient's home health aid at the patient's residence. We discussed the results and the plan with the patient who is agreeable with the plan. *DC/Admit/Observation/Transfer Diagnosis at time of Disposition: Weakness - Discharge Dispostion Disposition: HOME Condition at time of disposition: Good Admit: No - Referrals Referrals: Shreya Best MD [Staff Physician] - - Patient Instructions Printed Discharge Instructions: DI for Muscle Weakness Additional Instructions: Please return to the ER if you experience concerning or worsening symptoms including worsening weakness, pain, or difficulty breathing. Your head ct was normal here in the ER. Your lab results were unremarkable here in the ER. We have made arrangements with your home health aid to be present at your home. Please call to schedule a follow up appointment with your primary care provider within 2-3 days to discuss your ER visit. - Post Discharge Activity
[2017-11-20 08:35] LABS: ALBUMIN 3.6 g/dl (3.4-5.0); ANION GAP 11 (8-16); BILIRUBIN,TOTAL 0.3 mg/dL (0.2-1.0); BLOOD UREA NITROGEN 20 mg/dL (7-18); CALCIUM 9.1 mg/dL (8.5-10.1); CHLORIDE 106 mmol/L (98-107); CO2 24 mmol/L (21-32); CREATININE 1.3 mg/dL (0.55-1.02); GLUCOSE,RANDOM 96 mg/dL (74-106); POTASSIUM 4.2 mmol/L (3.5-5.1); SGOT/AST 15 U/L (15-37); SGPT/ALT 17 U/L (12-78); SODIUM 141 mmol/L (136-145); TOT PROT 6.6 g/dl (6.4-8.2)
[2017-11-20 08:40] LABS: ALK PHOS 56 U/L (45-117)
[2017-11-20 08:43] VITALS: TEMP 98.5
[2017-11-20 09:24] VITALS: BP 146/68; PULSE 80
--- NOTE | 2017-11-20 11:38 | EKG ---
Test Reason : Blood Pressure : / mmHG Vent. Rate : 069 BPM Atrial Rate : 069 BPM P-R Int : 142 ms QRS Dur : 092 ms QT Int : 418 ms P-R-T Axes : 074 032 049 degrees QTc Int : 447 ms SINUS RHYTHM WITH FREQUENT PREMATURE VENTRICULAR COMPLEXES POSSIBLE LEFT ATRIAL ENLARGEMENT POSSIBLE ANTERIOR INFARCT , AGE UNDETERMINED ABNORMAL ECG WHEN COMPARED WITH ECG OF 29-OCT-2017 16:22, QT HAS LENGTHENED Confirmed by REMI JACKSON, PIERCE ([id number]) on 11/20/2017 11:37:39 AM Referred By: Confirmed By:PIERCE KHALIL MD
== END 2017-11-20 11:16 | disposition home or self-care (01) ==
LOC: JER 04:09
DX: M62.81 Muscle weakness (generalized) (principal); I25.10 Atherosclerotic heart disease of native coronary artery without angina pectoris; I13.10 Hypertensive heart and chronic kidney disease without heart failure, with stage 1 through stage 4 chronic kidney disease, or unspecified chronic kidney disease; N18.9 Chronic kidney disease, unspecified; Z95.5 Presence of coronary angioplasty implant and graft; E11.9 Type 2 diabetes mellitus without complications; C50.911 Malignant neoplasm of unspecified site of right female breast; Z86.718 Personal history of other venous thrombosis and embolism; Z86.711 Personal history of pulmonary embolism; Z79.01 Long term (current) use of anticoagulants; I69.854 Hemiplegia and hemiparesis following other cerebrovascular disease affecting left non-dominant side
CPT/HCPCS: 36415; 70450-TC; 80053; 82550; 82553; 84484; 85025; 85610; 85730; 93005; 93010; 99285-25

== ENCOUNTER 2018-05-21 10:43 | Observation (INO) | payer OTHER ==
[2018-05-21] MEDS ORDERED: SODIUM CHLORIDE 0.9% 1000 ML INFUS.BAG IV ONE (10:53)
[2018-05-21 11:11] VITALS: BMI 27.4
[2018-05-21] MEDS ORDERED: ACETAMINOPHEN 1000 MG/100 ML VIAL (NON FORMULARY) IVPB ONE (11:11)
--- NOTE | 2018-05-21 11:12 | PDOC ---
History of Present Illness - General Stated Complaint: UNRESPONSIVE Time Seen by Provider: 05/21/18 10:53 History Source: Patient - History of Present Illness Initial Comments: 05/21/18 11:09 Pt is a 68yo f with PMH of breast cancer s/p mastectomy 2 year ago, PE, CAD with stents, CVA presenting to ED from diagnostic after Rapid response was called. Pt had a syncope/near syncope episode on the first floor in diagnostic. Pt brought to ED. Pt in distress, but alert and answering questions. Pt says her blood pressure gets low sometimes and she usually feels dizzy/lightheaded when that happens. She was complaining of neck pain and headache. Pt has had those symptoms before and takes Tylenol for relief. She admits to shortness of breath, chest pain, headache, dizziness, neck pain, blurry vision, feeling hot, weakness on left side. Denies abdominal pain, n/v/d, dysuria, frequency, urgency , blood in stool. Pt is on Eliquis PCP: Nasir Onc: Liss Neurologist: Dom PMH: see hpi PSH: stent placement, bilateral mastectomy 2 years ago Meds: see med rec Allergies: nkda Social: denies Past History - Past Medical History Allergies/Adverse Reactions: Allergies Allergy/AdvReac Type Severity Reaction Status Date / Time No Known Drug Allergies Allergy Verified 11/20/17 04:14 Home Medications: Ambulatory Orders Docusate Sodium 100 mg PO BID 06/03/16 Multivitamin [Poly-Vitamin] 1 each PO DAILY 06/03/16 Omeprazole [Prilosec] 40 mg PO DAILY 06/03/16 Apixaban [Eliquis] 5 mg PO BID 08/25/17 Calcium Carb/Vitamin D3/Vit K1 [Calcium + D Soft Chewable Tab] 1 each PO BID 01/06 Tamoxifen Citrate 20 mg PO DAILY 08/25/17 Calcium 500Mg/Vit-D 200 Units [Os-Jose 500+D -] 1 tab PO BID tab 08/28/17 Carvedilol [Coreg -] 25 mg PO BID tablet 08/28/17 Enalapril Maleate [Vasotec -] 5 mg PO BID tablet 08/28/17 Rosuvastatin [Crestor -] 20 mg PO HS tablet 08/28/17 Spironolactone [Aldactone -] 25 mg PO DAILY tablet 08/28/17 Cancer: Yes (both breast) Cardiac Disorders: Yes (cad) CVA: Yes (x3) COPD: No Diabetes: Yes GI Disorders: Yes (GERD) Disorders: No HTN: Yes Hypercholesterolemia: Yes Liver Disease: No Thyroid Disease: No - Surgical History Cardiac Surgery: Yes (card stent x2) Lung Surgery: No Orthopedic Surgery: Yes (R. Foot bunionectomy) - Immunization History Immunization Up to Date: Yes - Suicide/Smoking/Psychosocial Hx Smoking Status: No Smoking History: Never smoked Have you smoked in the past 12 months: No Number of Cigarettes Smoked Daily: 0 If you are a former smoker, when did you quit?: 6 YEARS AGO Hx Alcohol Use: No Drug/Substance Use Hx: No Substance Use Type: None Hx Substance Use Treatment: No Review of Systems - Review of Systems Constitutional: Yes: See HPI, Other (Pt reported feeling hot. ). No: Chills, Fever HEENTM: Yes: Blurred Vision. No: Eye Pain, Recent change in vision, Double Vision, Ear Pain, Tinnitus Respiratory: Yes: Shortness of Breath. No: Cough, Wheezing Cardiac (ROS): Yes: Chest Pain, Lightheadedness, Syncope. No: Palpitations ABD/GI: No: Blood Streaked Bowels, Constipated, Diarrhea, Nausea, Vomiting, Abdominal cramping : No: Burning, Dysuria, Hematuria Musculoskeletal: Yes: Neck Pain, Other (headache) Neurological: Yes: Headache, Paresthesia, Pre-Existing Deficit (L sided deficits from previous CVA), Weakness, Dizziness. No: Numbness, Seizure, Tingling Hematologic/Lymphatic: Yes: Lymph Node Abnormalities (L nodes removed from L axilla. ) *Physical Exam - Physical Exam General Appearance: Yes: Nourished, Appropriately Dressed, Moderate Distress HEENT: positive: EOMI, Normal ENT Inspection, Normal Voice, TMs Normal, Pharynx Normal, Other (pupils pinpoint. ). negative: Pale Conjunctivae, Scleral Icterus (R), Scleral Icterus (L) Neck: positive: Trachea midline, Supple. negative: Carotid bruit, Lymphadenopathy (R), Lymphadenopathy (L) Respiratory/Chest: positive: Lungs Clear, Normal Breath Sounds, Rapid RR. negative: Decreased Breath Sounds, Rhonchi, Stridor, Wheezing, Plerual Rub Cardiovascular: positive: Regular Rate, S1, S2, Irregular (sinus with PVC). negative: JVD, Murmur Vascular Pulses: Carotid (R): 2+, Carotid (L): 2+, Dorsalis-Pedis (R): 2+, Doralis-Pedis (L): 2+ Gastrointestinal/Abdominal: positive: Normal Bowel Sounds, Soft. negative: Distended, Guarding, Rebound, Tenderness Musculoskeletal: negative: CVA Tenderness Extremity: positive: Normal Capillary Refill, Other (cool extremities). negative: Swelling, Calf Tenderness Integumentary: positive: Normal Color, Dry, Cold. 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 ), Respond to painful stimul, Facial Droop (residual facial droop on L side ), Other (residual weakness on L side. ) . negative: Numbness, Sensory Deficit Deep Tendon Reflexes: Knee (L): 2+, Knee (R): 2+ ED Treatment Course - LABORATORY CBC & Chemistry Diagram: 05/21/18 10:50 05/21/18 10:50 Medical Decision Making - Medical Decision Making 05/21/18 17:11 Pt is a 68yo f with PMH of breast cancer s/p mastectomy 2 year ago, PE, CAD with stents, CVA presenting to ED from diagnostic after Rapid response was called. Pt had a syncope/near syncope episode on the first floor in diagnostic. BP 90s/60s. Pt given bolus. BP up to 100s/60s. EKG showed sinus rhythm with PVC in bigeminy. Labs drawn. Pt given Tylenol for headache. CT head: encephalomalacia (chronic) from previous CVA. No acute changes. CTA thorax/abdomen: No dissection Pt reported feeling much better. She will be admitted tele/obs *DC/Admit/Observation/Transfer Diagnosis at time of Disposition: Syncope Qualifiers: Syncope type: unspecified Qualified Code(s): R55 - Syncope and collapse - Discharge Dispostion Condition at time of disposition: Improved Decision to Admit order: Yes - Referrals Referrals: Shreya Best MD [Primary Care Provider] - - Patient Instructions - Post Discharge Activity
[2018-05-21 11:20] LABS: BASO % 2.3 % (0-2.0); EOS % 4.7 % (0-4.5); HEMATOCRIT 35.6 % (32.4-45.2); HEMOGLOBIN 11.3 GM/dL (10.7-15.3); LYMPH % 36.3 % (8-40); MCH 27.1 pg (25.7-33.7); MCHC 31.7 g/dl (32.0-36.0); MEAN CELL VOLUME 85.6 fl (80-96); MEAN PLT VOLUME 9.2 fl (7.5-11.1); NEUT % 43.7 % (42.8-82.8); PLATELET COUNT 266 K/MM3 (134-434); RBC 4.16 M/mm3 (3.60-5.2); RDW 14.1 % (11.6-15.6); WHITE BLOOD COUNT 5.8 K/mm3 (4.0-10.0)
[2018-05-21 11:34] LABS: ALBUMIN 3.6 g/dl (3.4-5.0); ANION GAP 10 MMOL/L (8-16); BLOOD UREA NITROGEN 25 mg/dL (7-18); CALCIUM 9.2 mg/dL (8.5-10.1); CHLORIDE 106 mmol/L (98-107); CO2 24 mmol/L (21-32); GLUCOSE,RANDOM 90 mg/dL (74-106); POTASSIUM 4.7 mmol/L (3.5-5.1); SODIUM 140 mmol/L (136-145)
[2018-05-21 11:40] LABS: ALK PHOS 81 U/L (45-117); BILIRUBIN,TOTAL 0.6 mg/dL (0.2-1.0); CREATININE 1.6 mg/dL (0.55-1.02); SGOT/AST 41 U/L (15-37); SGPT/ALT 52 U/L (12-78); TOT PROT 7.1 g/dl (6.4-8.2)
[2018-05-21 12:04] LABS: INR 1.24 (0.83-1.09)
[2018-05-21 12:06] LABS: ACTIVATED PTT 24.6 SECONDS (25.2-36.5)
--- NOTE | 2018-05-21 12:41 | PDOC ---
Attending Attestation - HPI HPI: 05/21/18 12:48 The patient is a 68 year old female, with a significant PMH of HTN, DM, CKD, s/ p R carotid endarterectomy, [place] s/p stents, CVA (with residual L sided weakness) , BRCA+ (Breast Ca- on Tamoxifen), PE, DVT (On Eliquis), who presents to the emergency department for evaluation s/p witnessed syncopal episode at the diagnostic center on 1st floor of [facility]. At presentation, the patient is complaining of shortness of breath, headache and feeling warm. She denies any chest pain, palpitations, fever, chills, nausea, vomit, diarrhea and constipation. Denies dysuria, frequency, urgency and hematuria. Allergies: NKA Surgical History: hysterectomy, L sided lumpectomy Social History: Former smoker. Denies EtOH or recreational drug use. PCP: Dr Best - Physicial Exam PE: 05/21/18 12:48 Vitals: Triage vital signs reviewed General Appearance: No acute distress, well nourished, well developed Head: Atraumatic Eyes: +Pinpoint pupils, extraocular movement intact Neck: Supple; No nuchal rigidity Chest Wall: Nontender Cardiac: Regular rate and rhythm, no murmurs, no rubs, no gallops Lungs: Clear to auscultation bilateral, good air movement bilaterally Abdomen: Soft, nondistended, normal bowel sounds, nontender to palpation Rectal: Exam deferred Extremities: Full range of motion to all extremities, no cyanosis, clubbing, or edema Skin: Warm and dry, no rashes or lesions, no rash, no petechiae Psych: Normal mood, normal affect - Medical Decision Making 05/21/18 12:49 Patient is a 68 year old female, with a significant PMH of HTN, DM, CKD, s/p R carotid endarterectomy, [place] s/p stents, CVA (with residual L sided weakness), BRCA+ (Breast Ca- on Tamoxifen), PE, DVT (On Eliquis), presents to the emergency department with syncopal episode just prior to arrival. Plan: EKG, Labs, Blood work, Meds, Chest x-ray, Head CT W/O contrast. <Pilo Trivedi - Last Filed: 05/21/18 16:55> - Resident Resident Name: Laila Burrows - ED Attending Attestation I have performed the following: I have examined & evaluated the patient, The case was reviewed & discussed with the resident, I agree w/resident's findings & plan, Exceptions are as noted - Medical Decision Making Patient presents to the emergency department with syncopal episode from outpatient radiology. Complaining of feeling hot flush short of breath Questionable thoracic aneurysm findings on bedside ultrasound. CTA ordered to rule out PE dissection no evidence of either We'll admit to hospital for syncope and further evaluation. <Javed Fam - Last Filed: 05/21/18 18:24> Heart Score/ECG Review - ECG Impressions Comment:: 05/21/18 18:24 Sinus rhythm with frequent PVCs and pattern of bigeminy. No ST elevations or T- wave inversions. Interpreted by me. <Javed Fam - Last Filed: 05/21/18 18:24> Attestations - Attestations 05/21/18 12:49 Documentation prepared by Pilo Trivedi, acting as electromedical equipment technician for Javed Fam MD. <Pilo Trivedi - Last Filed: 05/21/18 16:55>
[2018-05-21] MEDS ORDERED: ACETAMINOPHEN INJECTION 100 ML IVPB ONE (12:51)
[2018-05-21] MEDS ORDERED: SODIUM CHLORIDE 1,000 ML IV STA (12:51)
[2018-05-21 13:54] LABS: ARTERIAL BLD GAS O2 SATURATION 95.4 % (90-98.9); ARTERIAL BLOOD GAS BASE EXCESS -3.3 meq/l (-2-2); ARTERIAL BLOOD GAS PCO2 37.7 mmHg (35-45); ARTERIAL BLOOD GAS pH 7.37 (7.35-7.45)
[2018-05-21 13:57] LABS: ALLENS TEST POSITIVE
--- NOTE | 2018-05-21 15:46 | EKG ---
Test Reason : Blood Pressure : / mmHG Vent. Rate : 071 BPM Atrial Rate : 071 BPM P-R Int : 130 ms QRS Dur : 084 ms QT Int : 402 ms P-R-T Axes : 062 -02 013 degrees QTc Int : 436 ms SINUS RHYTHM WITH FREQUENT PREMATURE VENTRICULAR COMPLEXES IN A PATTERN OF BIGEMINY POSSIBLE LEFT ATRIAL ENLARGEMENT BORDERLINE ECG WHEN COMPARED WITH ECG OF 20-NOV-2017 05:48, BORDERLINE CRITERIA FOR ANTERIOR INFARCT ARE NO LONGER PRESENT Confirmed by PIERCE KHALIL MD ([id number]) on 05/21/2018 3:46:22 PM Referred By: Confirmed By:PIERCE KHALIL MD
[2018-05-21] MEDS ORDERED: SODIUM CHLORIDE 1,000 ML IV SCH ×2 (19:30→23:15)
--- NOTE | 2018-05-21 19:37 | HP ---
CHIEF COMPLAINT: syncope and collapse PCP: Dr. Best, PCP, Dr. Leija, oncology. Dr. Fernandes, neurology. Patient is a 68 year old female who was rushed to the ED after a syncopal episode while patient was on the 1st floor Diagnostic Center at [facility] earlier this morning. Patient was in her usual state of health when she awoke this morning, felt well. When in the diagnostic center, and before collapsing she felt weak, and was dizzy and lightheaded as if room was spinning. She remembers the event vaguely when I spoke to her in the ED but states that she feels profoundly fatigued and just wants to rest. Patient states she has had episodes of dizziness at home, but denies falls or any syncope. After the syncopal event today, patient complained of shortness of breath, neck pain and headache, chest discomfort, feeling flushed and blurry vision. She also reported left sided weakness. Her past medical history includes hypertension, diabetes, chronic kidney disease , s/p R carotid endarterectomy, [place] with stents, CVA (with residual L sided weakness-ambulates with RW) BRCA+ on Tamoxifen,, PE and DVT (On Eliquis). ER course was notable for: (1) chest xray new left lower lobe and medial right lower lobe infiltrates (2) trop negative (3) head ct: moderate atrophy and periventicular chronic microvascular ischemic disease changes, encephalomalacia likely chronic in the right periventricular white matter. middle cerebral artery territory. (4) ekg nsr with frequent pvc in pattern of bigemmy, possible left atrial enlargement. (5)chest cta: no PE or aortic dissection, increased size of a right lower lobe subpleural nodule measures 0.9, previously 0.7. thyroid nodule, infrarenal inferior vena cava filter in place. extensive artheroscleortic vascular calcifications. PAST MEDICAL HISTORY: hypertension, diabetes, chronic kidney disease, s/p R carotid endarterectomy, [place] with stents, CVA (with residual L sided weakness- ambulates with RW) BRCA+ on Tamoxifen,, PE and DVT (On Eliquis). PAST SURGICAL HISTORY: stent placement, bilateral mastectomy 2 years ago Social History: Smoking:none Alcohol: none Drugs: none Family History: Allergies No Known Drug Allergies Allergy (Verified 11/20/17 04:14) HOME MEDICATIONS: Home Medications Medication Instructions Recorded Docusate Sodium 100 mg PO BID 06/03/16 Multivitamin [Poly-Vitamin] 1 each PO DAILY 06/03/16 Omeprazole [Prilosec] 40 mg PO DAILY 06/03/16 Apixaban [Eliquis] 5 mg PO BID 08/25/17 Calcium Carb/Vitamin D3/Vit K1 1 each PO BID 08/25/17 [Calcium + D Soft Chewable Tab] Tamoxifen Citrate 20 mg PO DAILY 08/25/17 Calcium 500Mg/Vit-D 200 Units 1 tab PO BID tab 08/28/17 [Os-Jose 500+D -] Carvedilol [Coreg -] 25 mg PO BID tablet 08/28/17 Enalapril Maleate [Vasotec -] 5 mg PO BID tablet 08/28/17 Rosuvastatin [Crestor -] 20 mg PO HS tablet 08/28/17 Spironolactone [Aldactone -] 25 mg PO DAILY tablet 08/28/17 PHYSICAL EXAMINATION Vital Signs - 24 hr 05/21/18 05/21/18 05/21/18 11:01 12:15 12:52 Temperature 98.1 F Pulse Rate 75 Pulse Rate [ 52 L 69 Apical] Respiratory 18 16 17 Rate Blood Pressure 117/64 Blood Pressure 132/52 137/57 [Thigh] O2 Sat by Pulse 100 96 94 L Oximetry (%) 05/21/18 15:59 Temperature 98.2 F Pulse Rate Pulse Rate [ 80 Apical] Respiratory 16 Rate Blood Pressure Blood Pressure 90/57 [Thigh] O2 Sat by Pulse 98 Oximetry (%) GENERAL: Awake, but lethargic, in no acute distress HEAD: Normal with no signs of trauma. EYES: Pupils equal, round and reactive to light EARS, NOSE, THROAT: Ears normal, nares patent, oropharynx clear without exudates. Moist mucous membranes. NECK: Normal range of motion, supple without lymphadenopathy, JVD, or masses. LUNGS: diminished breath sounds bilaterally, tolerating room air HEART: Regular rate and rhythm ABDOMEN: Soft, nontender, not distended, normoactive bowel sounds, no guarding, no rebound, no masses. No hepatomegaly or splenomegaly. MUSCULOSKELETAL: Normal range of motion at all joints. No bony deformities or tenderness. No CVA tenderness. UPPER EXTREMITIES: No peripheral edema. LOWER EXTREMITIES: No calf tenderness. No peripheral edema. NEUROLOGICAL: Normal speech. ambulates with RW PSYCHIATRIC: Cooperative. SKIN: Warm, dry, normal turgor, no rashes or lesions noted, normal capillary refill. Laboratory Results - last 24 hr 05/21/18 05/21/18 05/21/18 10:50 10:50 10:50 WBC 5.8 RBC 4.16 Hgb 11.3 Hct 35.6 MCV 85.6 MCH 27.1 MCHC 31.7 L RDW 14.1 Plt Count 266 D MPV 9.2 Absolute Neuts (auto) 2.5 Neutrophils % 43.7 Lymphocytes % 36.3 Monocytes % 13.0 H Eosinophils % 4.7 H Basophils % 2.3 H Nucleated RBC % 0 PT with INR 14.00 H INR 1.24 H PTT (Actin FS) 24.6 L Anticoagulation Therapy Puncture Site ABG pH ABG pCO2 at Pt Temp ABG pO2 at Pt Temp ABG HCO3 ABG O2 Sat (Measured) ABG O2 Content ABG Base Excess Blake Test O2 Delivery Device Oxygen Flow Rate Vent Mode Vent Rate Mechanical Rate Pressure Support Vent Sodium 140 Potassium 4.7 Chloride 106 Carbon Dioxide 24 Anion Gap 10 BUN 25 H Creatinine 1.6 H Creat Clearance w eGFR 31.87 POC Glucometer Random Glucose 90 Lactic Acid Calcium 9.2 Total Bilirubin 0.6 AST 41 H ALT 52 Alkaline Phosphatase 81 Troponin I < 0.02 Total Protein 7.1 Albumin 3.6 05/21/18 05/21/18 05/21/18 10:50 10:51 10:52 WBC RBC Hgb Hct MCV MCH MCHC RDW Plt Count MPV Absolute Neuts (auto) Neutrophils % Lymphocytes % Monocytes % Eosinophils % Basophils % Nucleated RBC % PT with INR INR PTT (Actin FS) Anticoagulation Therapy Puncture Site ABG pH ABG pCO2 at Pt Temp ABG pO2 at Pt Temp ABG HCO3 ABG O2 Sat (Measured) ABG O2 Content ABG Base Excess Blake Test O2 Delivery Device Oxygen Flow Rate Vent Mode Vent Rate Mechanical Rate Pressure Support Vent Sodium Potassium Chloride Carbon Dioxide Anion Gap BUN Creatinine Creat Clearance w eGFR POC Glucometer 99.31469 Random Glucose Lactic Acid 1.5 Calcium Total Bilirubin AST ALT Alkaline Phosphatase Troponin I Cancelled Total Protein Albumin 05/21/18 12:20 WBC RBC Hgb Hct MCV MCH MCHC RDW Plt Count MPV Absolute Neuts (auto) Neutrophils % Lymphocytes % Monocytes % Eosinophils % Basophils % Nucleated RBC % PT with INR INR PTT (Actin FS) Anticoagulation Therapy No Result Required. Puncture Site Right radial ABG pH 7.37 ABG pCO2 at Pt Temp 37.7 ABG pO2 at Pt Temp 82.0 ABG HCO3 21.1 L ABG O2 Sat (Measured) 95.4 ABG O2 Content 13.8 L ABG Base Excess -3.3 L Blake Test Positive O2 Delivery Device No Result Required. Oxygen Flow Rate Yes Vent Mode No Result Required. Vent Rate No Result Required. Mechanical Rate No Result Required. Pressure Support Vent No Result Required. Sodium Potassium Chloride Carbon Dioxide Anion Gap BUN Creatinine Creat Clearance w eGFR POC Glucometer Random Glucose Lactic Acid Calcium Total Bilirubin AST ALT Alkaline Phosphatase Troponin I Total Protein Albumin ASSESSMENT/PLAN: Patient is a 68 year old female who was rushed to the ED after a syncopal episode while patient was on the 1st floor Diagnostic Center at [facility] earlier this morning. Patient was in her usual state of health when she awoke this morning, felt well. When in the diagnostic center, and before collapsing she felt weak, and was dizzy and lightheaded as if room was spinning. After the syncopal event today, patient complained of shortness of breath, neck pain and headache, chest discomfort, feeling flushed and blurry vision. She also reported left sided weakness. Her past medical history includes hypertension, diabetes, chronic kidney disease , s/p R carotid endarterectomy, [place] with stents, CVA BRCA+ on Tamoxifen, PE and DVT (On Eliquis). Imaging: - head ct: moderate atrophy and periventicular chronic microvascular ischemic disease changes, encephalomalacia likely chronic in the right periventricular white matter. middle cerebral artery territory. - chest xray: new left lower lobe and medial right lower lobe infiltrates - ekg: nsr with frequent pvc in pattern of bigemmy, possible left atrial enlargement. - chest cta: no PE or aortic dissection, increased size of a right lower lobe subpleural nodule measures 0.9, previously 0.7. thyroid nodule, infrarenal inferior vena cava filter in place. extensive artheroscleortic vascular calcifications. Neuro: Syncope with Collapse: Syncopal episode of unclear etiology: seizure vs. orthostatic hypotension vs hypoglycemic episode vs. advancement of her breast cancer such as mets?. head ct negative for any acute findings but shows chronic microvascular ischemic disease changes, encephalomalacia. Patient reports feeling fatigued, weaker. Will order a brain mri without contrast to further evaluate. blood cultures pending. Consider neurology consult. Carotid doppler also ordered. Card: Hypertension: Hypotensive in the ED. On Coreq with BP parameters. Has history of carotid endarterectomy, [place]. Trend troponins to rule out ACS. Echo ordered and pending. Monitor orthostatics q8. fall precautions. Oncology: Breast cancer: On Tamoxifen. Oncologist Dr. Leija has been consulted. Pulmonary: History of PE and DVT: On eliquis. will continue. Hematology/oncology consulted Renal: JOVAN on ckd. baseline -1.3, currently 1.6. gently hydrate overnight and repeat labs in a.m. avoid nephrotoxins. Endocrine: diabetes: monitor BGSm, Novolog SS fen ns @ 50cc/hr monitor electrolytes low salt/diabetic diet prophy on eliquis full code Visit type - Emergency Visit Emergency Visit: Yes Care time: The patient presented to the Emergency Department on the above date and was hospitalized for further evaluation of their emergent condition. - New Patient This patient is new to me today: Yes Date on this admission: 05/21/18 - Critical Care Critical Care patient: No Hospitalist Screening - Colonoscopy Questionnaire Colonoscopy Questionnaire: Colonoscopy Questionnaire - Patient: 50 - 75 years old and never had a screening colonoscopy: Unknown History of colon or rectal polyps, or CA: Unknown History of IBD, Crohn's disease or UC: Unknown History of abdominal radiation therapy as a child: Unknown - Relative: 1 with colon or rectal CA, or polyps at age 60 or younger: Unknown Colon or rectal CA diagnosed at age 45 or younger: Unknown Multiple relatives with colon or rectal CA: Unknown - Outcome: Screening Result: Negative Screen
[2018-05-21] MEDS ORDERED: ACETAMINOPHEN 325 MG TABLET (FP) PO PRN (21:49)
[2018-05-21] MEDS ORDERED: CARVEDILOL 25 MG TABLET (FP) PO SCH (22:00)
--- NOTE | 2018-05-21 23:18 | CONSULT ---
Consult - text type - Consultation Consultation Note: Patient is a 68 year old female with presyncopal episode and severe headache this morning . Patient was in her usual state of health when she awoke this morning, felt well. When in the clinic she came in with normal vital signs and had no complaints. After being in the waiting room for about 45 minutes she developed severe headache and complained of not feeling well and became presyncopal She kept saying that her sister had recently She felt weak, and was dizzy and lightheaded as if room was spinning. Rapid response was called and she was sent to the ER Patient states she has had episodes of dizziness at home, but denies falls or any syncope. After the syncopal event today, patient complained of shortness of breath, neck pain and headache, chest discomfort, feeling flushed and blurry vision. She also reported left sided weakness. Her past medical history includes hypertension, diabetes, chronic kidney disease , s/p R carotid endarterectomy, [place] with stents, CVA (with residual L sided weakness-ambulates with RW) BRCA+ on Tamoxifen,, PE and DVT (On Eliquis). ER course was notable for: (1) chest xray new left lower lobe and medial right lower lobe infiltrates (2) trop negative (3) head ct: moderate atrophy and periventicular chronic microvascular ischemic disease changes, encephalomalacia likely chronic in the right periventricular white matter. middle cerebral artery territory. (4) ekg nsr with frequent pvc in pattern of bigemmy, possible left atrial enlargement. (5)chest cta: no PE or aortic dissection, increased size of a right lower lobe subpleural nodule measures 0.9, previously 0.7. thyroid nodule, infrarenal inferior vena cava filter in place. extensive artheroscleortic vascular calcifications. PAST MEDICAL HISTORY: hypertension, diabetes, chronic kidney disease, s/p R carotid endarterectomy, [place] with stents, CVA (with residual L sided weakness- ambulates with RW) BRCA+ on Tamoxifen,, PE and DVT (On Eliquis). PAST SURGICAL HISTORY: stent placement, bilateral mastectomy 2 years ago Allergies No Known Drug Allergies Allergy (Verified 11/20/17 04:14) HOME MEDICATIONS: Home Medications Medication Instructions Recorded Docusate Sodium 100 mg PO BID 06/03/16 Multivitamin [Poly-Vitamin] 1 each PO DAILY 06/03/16 Omeprazole [Prilosec] 40 mg PO DAILY 06/03/16 Apixaban [Eliquis] 5 mg PO BID 08/25/17 Calcium Carb/Vitamin D3/Vit K1 1 each PO BID 08/25/17 [Calcium + D Soft Chewable Tab] Tamoxifen Citrate 20 mg PO DAILY 08/25/17 Calcium 500Mg/Vit-D 200 Units 1 tab PO BID tab 08/28/17 [Os-Jose 500+D -] Carvedilol [Coreg -] 25 mg PO BID tablet 08/28/17 Enalapril Maleate [Vasotec -] 5 mg PO BID tablet 08/28/17 Rosuvastatin [Crestor -] 20 mg PO HS tablet 08/28/17 Spironolactone [Aldactone -] 25 mg PO DAILY tablet 08/28/17 PHYSICAL EXAMINATION Vital Signs - 24 hr 05/21/18 05/21/18 05/21/18 11:01 12:15 12:52 Temperature 98.1 F Pulse Rate 75 Pulse Rate [ 52 L 69 Apical] Respiratory 18 16 17 Rate Blood Pressure 117/64 Blood Pressure 132/52 137/57 [Thigh] O2 Sat by Pulse 100 96 94 L Oximetry (%) 05/21/18 15:59 Temperature 98.2 F Pulse Rate Pulse Rate [ 80 Apical] Respiratory 16 Rate Blood Pressure Blood Pressure 90/57 [Thigh] O2 Sat by Pulse 98 Oximetry (%) GENERAL: Awake, but lethargic, in no acute distress HEAD: Normal with no signs of trauma. NECK: Normal range of motion, supple without lymphadenopathy, JVD, or masses. LUNGS: diminished breath sounds bilaterally, tolerating room air HEART: Regular rate and rhythm ABDOMEN: Soft, nontender, non distended, normoactive bowel sounds, no guarding, no rebound, no masses. NEUROLOGICAL: Normal speech. ambulates with RW . Left leg motor strength mildly diminished compared to right Laboratory Results - last 24 hr 05/21/18 05/21/18 05/21/18 10:50 10:50 10:50 WBC 5.8 RBC 4.16 Hgb 11.3 Hct 35.6 MCV 85.6 MCH 27.1 MCHC 31.7 L RDW 14.1 Plt Count 266 D MPV 9.2 Absolute Neuts (auto) 2.5 Neutrophils % 43.7 Lymphocytes % 36.3 Monocytes % 13.0 H Eosinophils % 4.7 H Basophils % 2.3 H Nucleated RBC % 0 PT with INR 14.00 H INR 1.24 H PTT (Actin FS) 24.6 L Anticoagulation Therapy Puncture Site ABG pH ABG pCO2 at Pt Temp ABG pO2 at Pt Temp ABG HCO3 ABG O2 Sat (Measured) ABG O2 Content ABG Base Excess Blake Test O2 Delivery Device Oxygen Flow Rate Vent Mode Vent Rate Mechanical Rate Pressure Support Vent Sodium 140 Potassium 4.7 Chloride 106 Carbon Dioxide 24 Anion Gap 10 BUN 25 H Creatinine 1.6 H Creat Clearance w eGFR 31.87 POC Glucometer Random Glucose 90 Lactic Acid Calcium 9.2 Total Bilirubin 0.6 AST 41 H ALT 52 Alkaline Phosphatase 81 Troponin I < 0.02 Total Protein 7.1 Albumin 3.6 05/21/18 05/21/18 05/21/18 10:50 10:51 10:52 WBC RBC Hgb Hct MCV MCH MCHC RDW Plt Count MPV Absolute Neuts (auto) Neutrophils % Lymphocytes % Monocytes % Eosinophils % Basophils % Nucleated RBC % PT with INR INR PTT (Actin FS) Anticoagulation Therapy Puncture Site ABG pH ABG pCO2 at Pt Temp ABG pO2 at Pt Temp ABG HCO3 ABG O2 Sat (Measured) ABG O2 Content ABG Base Excess Blake Test O2 Delivery Device Oxygen Flow Rate Vent Mode Vent Rate Mechanical Rate Pressure Support Vent Sodium Potassium Chloride Carbon Dioxide Anion Gap BUN Creatinine Creat Clearance w eGFR POC Glucometer 99.50025 Random Glucose Lactic Acid 1.5 Calcium Total Bilirubin AST ALT Alkaline Phosphatase Troponin I Cancelled Total Protein Albumin 05/21/18 12:20 WBC RBC Hgb Hct MCV MCH MCHC RDW Plt Count MPV Absolute Neuts (auto) Neutrophils % Lymphocytes % Monocytes % Eosinophils % Basophils % Nucleated RBC % PT with INR INR PTT (Actin FS) Anticoagulation Therapy No Result Required. Puncture Site Right radial ABG pH 7.37 ABG pCO2 at Pt Temp 37.7 ABG pO2 at Pt Temp 82.0 ABG HCO3 21.1 L ABG O2 Sat (Measured) 95.4 ABG O2 Content 13.8 L ABG Base Excess -3.3 L Blake Test Positive O2 Delivery Device No Result Required. Oxygen Flow Rate Yes Vent Mode No Result Required. Vent Rate No Result Required. Mechanical Rate No Result Required. Pressure Support Vent No Result Required. Sodium Potassium Chloride Carbon Dioxide Anion Gap BUN Creatinine Creat Clearance w eGFR POC Glucometer Random Glucose Lactic Acid Calcium Total Bilirubin AST ALT Alkaline Phosphatase Troponin I Total Protein Albumin ASSESSMENT/PLAN: Patient is a 68 year old female who was rushed to the ED after a syncopal episode while patient was on the 1st floor Diagnostic [facility] at [facility] earlier this morning. Patient was in her usual state of health when she awoke this morning, felt well. When in the diagnostic center, and before becoming presyncopal she had pounding headache, felt weak, and was dizzy and lightheaded . After the syncopal event today, patient complained of shortness of breath, neck pain and headache, chest discomfort, feeling flushed and blurry vision. She also reported left sided weakness. Her past medical history includes hypertension, diabetes, chronic kidney disease , s/p R carotid endarterectomy, [place] with stents, CVA BRCA+ on Tamoxifen, PE and DVT (On Eliquis). Imaging: - head ct: moderate atrophy and periventicular chronic microvascular ischemic disease changes, encephalomalacia likely chronic in the right periventricular white matter. middle cerebral artery territory. - chest xray: new left lower lobe and medial right lower lobe infiltrates - ekg: nsr with frequent pvc in pattern of bigemmy, possible left atrial enlargement. - chest cta: no PE or aortic dissection, increased size of a right lower lobe subpleural nodule measures 0.9, previously 0.7. thyroid nodule, infrarenal inferior vena cava filter in place. extensive artheroscleortic vascular calcifications. A/P 67 yo F with h/o HTN, HLD, NIDDM, CKD, CAD s/p R CEA, [place] s/p stent placement, CVA, BRCA+ Breast Ca ( Tamoxifen) , PE, and DVTs, who presents with near syncopal episode. Patient was in her usual state of health when she awoke this morning, felt well and had normal vital signs on coming to the clinic. While waiting in the clinic, she had pounding headache, became presyncopal, felt weak , and was dizzy and lightheaded .Rapid response was called and she was sent to the ED. 1. Breast cancer h/o T1c , N0, ER+/WI-/HEr2 + by FISH ,stage IA,poorly differentiated right breast cancer 01/05, while on arimidex for early stage left breast cancer. .h/o b /l mastectomies 02/04. h/o BRCA positivity h/o Abhay/BSO at age 26 Due to multiple comorbidities including moderate to severe LV dysfunction ( LVEF 25% at that time) patient was not a candidate for Her 2 based therapy. She was switched to tamoxifen chest cta 05/21/18: no PE or aortic dissection, increased size of a right lower lobe subpleural nodule measures 0.9cm, previously 0.7cm. LLL nodule increased in size aswell.Stable several other bilateral nodules. thyroid nodule, infrarenal inferior vena cava filter in place. extensive artheroscleortic vascular calcifications willneed outpatient PET-CT will check MRI brain 2. Presyncopal episode--? hypoglycemia ? sepsis ? neuro event ? cardiac cultures sent getting cardiac/neuro w/u will check MRI brain will follow
[2018-05-21] MEDS: APIXABAN 5 MG TABLET PO SCH (23:35)
[2018-05-21] MEDS: DOCUSATE SODIUM 100 MG CAPSULE (FP) PO SCH (23:35)
[2018-05-21] MEDS: ROSUVASTATIN CA 20 MG TABLET (FP) PO SCH (23:35)
[2018-05-22 01:38] LABS: URINE APPEARANCE CLEAR; URINE BILIRUBIN NEGATIVE (<2.0 mg/dL); URINE COLOR LTYELLOW; URINE GLUCOSE (UA) NEGATIVE (NEGATIVE); URINE KETONE NEGATIVE (NEGATIVE); URINE LEUK ESTERASE TRACE (NEGATIVE); URINE NITRITE NEGATIVE (NEGATIVE); URINE PROTEIN NEGATIVE (NEGATIVE); URINE UROBILINOGEN NEGATIVE mg/dL (0.2-1.0)
[2018-05-22 01:47] LABS: EPI CELLS RARE /HPF (FEW); URINE MUCUS RARE
[2018-05-22 07:41] LABS: BASO % 1.3 % (0-2.0); EOS % 4.5 % (0-4.5); HEMATOCRIT 33.4 % (32.4-45.2); HEMOGLOBIN 10.5 GM/dL (10.7-15.3); LYMPH % 36.6 % (8-40); MCH 27.1 pg (25.7-33.7); MCHC 31.5 g/dl (32.0-36.0); MEAN CELL VOLUME 86.1 fl (80-96); MEAN PLT VOLUME 9.3 fl (7.5-11.1); NEUT % 43.6 % (42.8-82.8); PLATELET COUNT 218 K/MM3 (134-434); RBC 3.88 M/mm3 (3.60-5.2); RDW 13.9 % (11.6-15.6); WHITE BLOOD COUNT 5.6 K/mm3 (4.0-10.0)
[2018-05-22 08:28] LABS: ALBUMIN 3.1 g/dl (3.4-5.0); ANION GAP 6 MMOL/L (8-16); BLOOD UREA NITROGEN 24 mg/dL (7-18); CALCIUM 8.9 mg/dL (8.5-10.1); CHLORIDE 109 mmol/L (98-107); CO2 26 mmol/L (21-32); CREATININE 1.2 mg/dL (0.55-1.02); GLUCOSE,RANDOM 84 mg/dL (74-106); MAGNESIUM 1.5 mg/dL (1.8-2.4); POTASSIUM 4.7 mmol/L (3.5-5.1); SGOT/AST 34 U/L (15-37); SGPT/ALT 44 U/L (12-78); SODIUM 141 mmol/L (136-145)
[2018-05-22 08:33] LABS: ALK PHOS 74 U/L (45-117); BILIRUBIN,TOTAL 0.1 mg/dL (0.2-1.0); CHOLESTEROL 158 mg/dL (50-200); HDL CHOLESTEROL 37 mg/dL (40-60); TOT PROT 6.2 g/dl (6.4-8.2); TRIGLYCERIDES 122 mg/dL (35-160)
--- NOTE | 2018-05-22 09:36 | PN ---
Progress Note, Physician History of Present Illness: patient seen and examined. Events noted. Chart reviewed. Patient feels comfortable Feels much better Denies any chest pain or shortness of breath - Current Medication List Current Medications: Active Medications Acetaminophen (Tylenol -) 650 mg PO Q6H PRN PRN Reason: PAIN LEVEL 6-10 Apixaban (Eliquis -) 5 mg PO BID [facility] Last Admin: 05/21/18 23:35 Dose: 5 mg Carvedilol (Coreg -) 25 mg PO BID [facility] Docusate Sodium (Colace -) 100 mg PO BID [facility] Last Admin: 05/21/18 23:35 Dose: 100 mg Sodium Chloride (Normal Saline -) 1,000 mls @ 100 mls/hr IV ASDIR [facility] Stop: 05/22/18 23:14 Last Admin: 05/22/18 01:03 Dose: 100 mls/hr Pantoprazole Sodium (Protonix -) 40 mg PO DAILY [facility] Rosuvastatin Calcium (Crestor -) 20 mg PO HS [facility] Last Admin: 05/21/18 23:35 Dose: 20 mg - Objective Vital Signs: Vital Signs Temperature 97.7 F 05/22/18 07:29 Pulse Rate 73 05/22/18 07:29 Respiratory Rate 20 05/22/18 07:29 Blood Pressure 150/68 05/22/18 07:29 O2 Sat by Pulse Oximetry (%) 100 05/22/18 04:00 Constitutional: Yes: No Distress, Calm Eyes: Yes: Conjunctiva Clear Cardiovascular: Yes: Regular Rate and Rhythm Respiratory: Yes: CTA Bilaterally Gastrointestinal: Yes: Soft Edema: No Neurological: Yes: Alert, Pre-Existing Deficit Labs: CBC, BMP 05/22/18 06:00 05/22/18 06:00 INR, PTT INR 1.24 (0.83-1.09) H 05/21/18 10:50 Problem List - Problems (1) Syncope Code(s): R55 - SYNCOPE AND COLLAPSE Qualifiers: Syncope type: vasovagal syncope Qualified Code(s): R55 - Syncope and collapse (2) Breast cancer Code(s): C50.919 - MALIGNANT NEOPLASM OF UNSP SITE OF UNSPECIFIED FEMALE BREAST Qualifiers: Breast location: unspecified site of breast (3) Cerebral arteriosclerosis with history of previous stroke Code(s): I67.2 - CEREBRAL ATHEROSCLEROSIS; Z86.73 - PRSNL HX OF TIA (TIA), AND CEREB INFRC W/O RESID DEFICITS (4) Chronic anticoagulation Code(s): Z79.01 - FLATCAR WHACKER (CURRENT) USE OF ANTICOAGULANTS (5) History of pulmonary embolus (PE) Code(s): Z86.711 - PERSONAL HISTORY OF PULMONARY EMBOLISM Assessment/Plan clinically stable monitor on telemetry Continue present care Fall precautions Physical therapy monitor blood pressure Cardiology and neurology to follow I 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
[2018-05-22] MEDS: DOCUSATE SODIUM 100 MG CAPSULE (FP) PO SCH ×2 (09:41→21:29)
[2018-05-22] MEDS: APIXABAN 5 MG TABLET PO SCH ×2 (09:41→21:29)
[2018-05-22] MEDS: PANTOPRAZOLE 40 MG TABLET (FP) PO SCH (09:41)
[2018-05-22] MEDS: CARVEDILOL 25 MG TABLET (FP) PO SCH ×2 (09:42→21:29)
[2018-05-22] MEDS: MAGNESIUM OXIDE 400 MG TABLET (FP) PO SCH ×2 (10:24→21:29)
--- NOTE | 2018-05-22 11:15 | CON.CARD ---
Consult Consult Specialty:: Cardiology Referred by:: Shreya Best MD Reason for Consultation:: Near syncope - History of Present Illness Chief Complaint: Near syncope History of Present Illness: Patient is a 68 year old female with underlying history of HTN , ASHD, S/P DEAN mid LAD ISR, angina pectoris, CVA with residual left sided weakness, s/p lumpectomy for breast cancer, history of DVT and PTE post IVC filter on Eliquis, LV systolic dysfunction, frequent PVC carotid stenosis s/p right CEA and hypercholesterolemia, vasovagal near syncope presented with recurrent vasovagal near syncope and typical prodromal sxs including light- headedness, nausea, flushing, weak and fatigue all since resolved with hydration. Regarding CV symptoms, she denies chest pain, dyspnea, palpitations, orthopnea, PND or LE edema, ambulates with walker assistance. Last office visit 01/31/2018. 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 Home Medications - Allergies Allergies/Adverse Reactions: Allergies Allergy/AdvReac Type Severity Reaction Status Date / Time No Known Drug Allergies Allergy Verified 11/20/17 04:14 - Home Medications Home Medications: Ambulatory Orders Docusate Sodium 100 mg PO BID 06/03/16 Multivitamin [Poly-Vitamin] 1 each PO DAILY 06/03/16 Omeprazole [Prilosec] 40 mg PO DAILY 06/03/16 Apixaban [Eliquis] 5 mg PO BID 08/25/17 Calcium Carb/Vitamin D3/Vit K1 [Calcium + D Soft Chewable Tab] 1 each PO BID 01/06 Tamoxifen Citrate 20 mg PO DAILY 08/25/17 Calcium 500Mg/Vit-D 200 Units [Os-Jose 500+D -] 1 tab PO BID tab 08/28/17 Carvedilol [Coreg -] 25 mg PO BID tablet 08/28/17 Enalapril Maleate [Vasotec -] 5 mg PO BID tablet 08/28/17 Rosuvastatin [Crestor -] 20 mg PO HS tablet 08/28/17 Spironolactone [Aldactone -] 25 mg PO DAILY tablet 08/28/17 Family Disease History - Family Disease History Family Disease History: CA: Father (breast), Sister (breast), Other: Mother (CVA ) Review of Systems - Review of Systems Neurological: reports: Dizziness, Weakness Vital Signs: Vital Signs Temperature 98 F 05/22/18 09:37 Pulse Rate 68 05/22/18 09:37 Respiratory Rate 20 05/22/18 09:37 Blood Pressure 140/98 05/22/18 09:37 O2 Sat by Pulse Oximetry (%) 100 05/22/18 04:00 Constitutional: Yes: No Distress, Calm Neck: Yes: Supple Respiratory: Yes: Regular, CTA Bilaterally Gastrointestinal: Yes: Normal Bowel Sounds, Soft Cardiovascular: Yes: Regular Rate and Rhythm, Other (with ectopic beats) JVD: No Carotid Bruit: No Heart Sounds: Yes: S1, S2 Edema: No - Other Data Labs, Other Data: CBC, BMP 05/22/18 06:00 05/22/18 06:00 INR, PTT INR 1.24 (0.83-1.09) H 05/21/18 10:50 Troponin, BNP 05/21/18 05/21/18 05/22/18 10:50 10:50 01:20 Troponin I < 0.02 Cancelled < 0.02 05/22/18 06:00 Troponin I < 0.02 Troponin, BNP 05/21/18 05/21/18 05/22/18 10:50 10:50 01:20 Troponin I < 0.02 Cancelled < 0.02 05/22/18 06:00 Troponin I < 0.02 NSR @ 71 ventricular bigeminy Imaging - Results Chest X-ray: Report Reviewed (Bilateral lower lobe infiltrates) Cat Scan: Report Reviewed (head ct: moderate atrophy and periventicular chronic microvascular ischemic disease changes, encephalomalacia likely chronic in the right periventricular white matter. middle cerebral artery territory. Chest CTA : No PE or dissection) Problem List - Problems (1) [id number]-lqcyhde kidney injury Code(s): N17.9 - ACUTE KIDNEY FAILURE, UNSPECIFIED; N18.9 - CHRONIC KIDNEY DISEASE, UNSPECIFIED Qualifiers: Acute renal failure type: unspecified Chronic kidney disease stage: unspecified stage Qualified Code(s): N17.9 - Acute kidney failure, unspecified ; N18.9 - Chronic kidney disease, unspecified; N18.9 - Chronic kidney disease, unspecified (2) Breast cancer Code(s): C50.919 - MALIGNANT NEOPLASM OF UNSP SITE OF UNSPECIFIED FEMALE BREAST Qualifiers: Breast location: unspecified site of breast (3) Cerebral arteriosclerosis with history of previous stroke Code(s): I67.2 - CEREBRAL ATHEROSCLEROSIS; Z86.73 - PRSNL HX OF TIA (TIA), AND CEREB INFRC W/O RESID DEFICITS (4) Chronic anticoagulation Code(s): Z79.01 - RETIREMENT (CURRENT) USE OF ANTICOAGULANTS (5) Coronary artery disease Code(s): I25.10 - ATHSCL HEART DISEASE OF [place] CORONARY ARTERY W/O ANG PCTRS Qualifiers: Coronary Disease-Associated Artery/Lesion type: [place] artery [place] vs. transplanted heart: [place] heart Associated angina: without angina Qualified Code(s): I25.10 - Atherosclerotic heart disease of [place] coronary artery without angina pectoris (6) Deep vein thrombosis (DVT) of left lower extremity Code(s): I82.402 - ACUTE EMBOLISM AND THOMBOS UNSP DEEP VEINS OF L LOW EXTREM Qualifiers: Affected thrombotic vein of extremity: unspecified vein of extremity Chronicity: acute Qualified Code(s): I82.402 - Acute embolism and thrombosis of unspecified deep veins of left lower extremity (7) History of pulmonary embolus (PE) Code(s): Z86.711 - PERSONAL HISTORY OF PULMONARY EMBOLISM (8) Hypertension Code(s): I10 - ESSENTIAL (PRIMARY) HYPERTENSION Qualifiers: Hypertension type: essential hypertension Qualified Code(s): I10 - Essential (primary) hypertension (9) Near syncope Code(s): R55 - SYNCOPE AND COLLAPSE (10) Premature ventricular contraction Code(s): I49.3 - VENTRICULAR PREMATURE DEPOLARIZATION (11) S/P coronary artery stent placement Code(s): Z95.5 - PRESENCE OF CORONARY ANGIOPLASTY IMPLANT AND GRAFT (12) Systolic dysfunction without heart failure Code(s): I51.9 - HEART DISEASE, UNSPECIFIED (13) Hyperlipidemia Code(s): E78.5 - HYPERLIPIDEMIA, UNSPECIFIED Qualifiers: Hyperlipidemia type: pure hypercholesterolemia Qualified Code(s): E78.00 - Pure hypercholesterolemia, unspecified; E78.0 - Pure hypercholesterolemia Assessment/Plan 08/13/2017 MUGA: Normal RV size and fxn with mild-mod decreased LV systolic function and global HK LVEF 46% 08/13/2017 Echo: Mild-mod decreased LV fxn with mod LV dilatation LVEF 46% 1. History of neurocardiogenic syncope with typical prodromal symptoms with recurrence 2. ASHD, S/P DEAN to mid LAD, angina pectoris 3. LV systolic dysfunction post chemotherapy (LVEF 46%) 4. History of right MCA CVA/stroke with residual deficit 5. 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 HTN/HCVD 7. Hypercholesterolemia 8. Frequent PVC 9. Carotid disease s/p right CEA 10. Breast cancer s/p bilateral mastectomy with reconstruction 11. Acute on CKD pre-renal improving PLAN: 1. Continue Carvedilol 25 bid, Crestor 20 qhs, holding Vasotec 5 bid and Aldactone 25 qd pending renal recovery 2. Maintain on Eliquis 5 bid with GI prophylaxis 3. IV hydration with monitor renal recovery 4. Addressed abortive measures once prodromal sxs have been experienced 5. Holter monitor to assess arrhythmia burden and echo to reassess LV fxn as outpatient 6. Thank you for consultative opportunity
--- NOTE | 2018-05-22 12:08 | CON.NEURO ---
Consult Consult Specialty:: Saurabh Referred by:: Nasir Reason for Consultation:: Syncopy - History of Present Illness History of Present Illness: this is a 68-year-old right-handed Well known to me from previous office visits Present medical history significant for 1. ccoronary artery disease 2. DVT 3. Mild obesity. 4. Gait dysfunction 5. History of stroke 6. 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 Home Medications - Allergies Allergies/Adverse Reactions: Allergies Allergy/AdvReac Type Severity Reaction Status Date / Time No Known Drug Allergies Allergy Verified 11/20/17 04:14 - Home Medications Home Medications: Ambulatory Orders Docusate Sodium 100 mg PO BID 06/03/16 Multivitamin [Poly-Vitamin] 1 each PO DAILY 06/03/16 Omeprazole [Prilosec] 40 mg PO DAILY 06/03/16 Apixaban [Eliquis] 5 mg PO BID 08/25/17 Calcium Carb/Vitamin D3/Vit K1 [Calcium + D Soft Chewable Tab] 1 each PO BID 01/06 Tamoxifen Citrate 20 mg PO DAILY 08/25/17 Calcium 500Mg/Vit-D 200 Units [Os-Jose 500+D -] 1 tab PO BID tab 08/28/17 Carvedilol [Coreg -] 25 mg PO BID tablet 08/28/17 Enalapril Maleate [Vasotec -] 5 mg PO BID tablet 08/28/17 Rosuvastatin [Crestor -] 20 mg PO HS tablet 08/28/17 Spironolactone [Aldactone -] 25 mg PO DAILY tablet 08/28/17 Family Disease History - Family Disease History Family Disease History: CA: Father (breast), Sister (breast), Other: Mother (CVA ) Review of Systems - Review of Systems Constitutional: reports: No Symptoms Eyes: reports: No Symptoms Physical Exam-Neuro Vital Signs: Vital Signs Temperature 98 F 05/22/18 09:37 Pulse Rate 68 05/22/18 09:37 Respiratory Rate 20 05/22/18 09:37 Blood Pressure 140/98 05/22/18 09:37 O2 Sat by Pulse Oximetry (%) 100 05/22/18 09:00 Constitutional: Yes: Well Nourished Neck: Yes: WNL Cardiovascular: Yes: WNL Labs: CBC, BMP 05/22/18 06:00 05/22/18 06:00 INR, PTT INR 1.24 (0.83-1.09) H 05/21/18 10:50 - Neuro Exam Level Of Consciousness: Yes: Oriented to Person, Oriented to Place, Oriented to Time Eyes: Yes: PERRLA Speech: WNL Dominant Hand: Right Cranial Nerves II-XII Intact: Yes Gag: Present DTR's: 1+ Left Bicep, 1+ Right Bicep, 1+ Left Brachioradialis, 1+ Right Brachioradialis Response to light touch: Normal Response to pain prick: Normal Response to temperature: Normal Response to vibration: Normal Motor Strength: 3/5: Left Arm, Right Arm, Left Leg, Right Leg Imaging - Results Cat Scan: Image Reviewed Problem List - Problems (1) Syncope Assessment/Plan: Syncope associated with cardiac arrhyth Syncope associated with TIA Neurologically with no acute deficits 1. Agree to your plan 2. Follow-up the Holter monitor 3. Tight blood pressure control 44. Check orthostasis every shift 5. Fall precautions 6. EEG 7. MRI of the brain with no contrast 8. Hold off aspirin 9. continue elliqus Thank you very much for neurological consultation and referral Code(s): R55 - SYNCOPE AND COLLAPSE Qualifiers: Syncope type: vasovagal syncope Qualified Code(s): R55 - Syncope and collapse
--- NOTE | 2018-05-22 13:24 | PN ---
Progress Note (short form) - Note Progress Note: Patient seen and examined Offers no specific complaints Last Vital Signs Temp Pulse Resp BP Pulse Ox 98 F 68 20 140/98 100 05/22/18 09:37 05/22/18 09:37 05/22/18 09:37 05/22/18 09:37 05/22/18 09:00 HEENT: ANGELINE, EOM Intact Oropharynx: No thrush, No mucositis Neck: Supple Nodes: Without adenopathy Breasts: s/p bilateral surgery Cor: RSR, No murmurs, No gallops Lungs: Clear to P&A Abd: Soft, Normal bowel sounds, No organomegaly Ext:No significant edema Skin: No rashes, Integument intact CBC, BMP 05/22/18 06:00 05/22/18 06:00 Current Medications Generic Name Dose Route Start Last Admin Trade Name Freq PRN Reason Stop Dose Admin Acetaminophen 650 mg 05/21/18 21:49 Tylenol - PO Q6H PRN PAIN LEVEL 6-10 Apixaban 5 mg 05/21/18 22:00 05/22/18 09:41 Eliquis - PO 5 mg BID SAMANTHA Administration Carvedilol 25 mg 05/22/18 10:00 05/22/18 09:42 Coreg - PO 25 mg BID SAMANTHA Administration Docusate Sodium 100 mg 05/21/18 22:00 05/22/18 09:41 Colace - PO 100 mg BID SAMANTHA Administration Sodium Chloride 1,000 mls @ 100 mls/hr 05/21/18 23:15 05/22/18 01:03 Normal Saline - IV 05/22/18 23:14 100 mls/hr ASDIR SAMANTHA Administration Magnesium Oxide 400 mg 05/22/18 10:00 05/22/18 10:24 Mag-Ox - PO 400 mg BID SAMANTHA Administration Pantoprazole Sodium 40 mg 05/22/18 10:00 05/22/18 09:41 Protonix - PO 40 mg DAILY SAMANTHA Administration Rosuvastatin Calcium 20 mg 05/21/18 22:00 05/21/18 23:35 Crestor - PO 20 mg HS SAMANTHA Administration Impression: Breast ca ?TIA vs other Work up in process
[2018-05-22] MEDS ORDERED: SODIUM CHLORIDE 1,000 ML IV SCH (17:42)
[2018-05-22] MEDS: ROSUVASTATIN CA 20 MG TABLET (FP) PO SCH (21:29)
[2018-05-23 10:00] VITALS: BP 170/88; PULSE 82; TEMP 98
[2018-05-23] MEDS: DOCUSATE SODIUM 100 MG CAPSULE (FP) PO SCH (10:00)
[2018-05-23] MEDS: MAGNESIUM OXIDE 400 MG TABLET (FP) PO SCH (10:00)
[2018-05-23] MEDS: APIXABAN 5 MG TABLET PO SCH (10:01)
[2018-05-23] MEDS: CARVEDILOL 25 MG TABLET (FP) PO SCH (10:01)
[2018-05-23] MEDS: PANTOPRAZOLE 40 MG TABLET (FP) PO SCH (10:01)
--- NOTE | 2018-05-23 10:04 | DS ---
Physical Examination Vital Signs: Vital Signs Temperature 98 F 05/23/18 09:59 Pulse Rate 82 05/23/18 09:59 Respiratory Rate 20 05/23/18 09:59 Blood Pressure 170/88 05/23/18 09:59 O2 Sat by Pulse Oximetry (%) 100 05/23/18 08:44 Findings/Remarks: feels well no complains wants to go home dont want to stay did not do u/s carotid-- on NOAC ANYWAYS Constitutional: Yes: No Distress Neck: Yes: Supple Cardiovascular: Yes: Regular Rate and Rhythm Respiratory: Yes: CTA Bilaterally Gastrointestinal: Yes: Soft Edema: No Neurological: Yes: Alert, Pre-Existing Deficit Psychiatric: Yes: Alert Labs: CBC, BMP 05/22/18 06:00 05/22/18 06:00 Discharge Summary Reason For Visit: SYNCOPE Current Active Problems Hyperlipidemia (Acute) Syncope (Acute) Hospital Course: ADMITTED FOR AMS/ SYNCOPE WORK UP -VE MONITORED ON TELE MRI -BRAIN -VE HOLTOR OUT PT. U/S CAROTID OUT PT- IF PT AGREES STABLE FOR D/C MEDS RECONCILLED F/U IN OFFICE IN 2 WEEKS PT IN AGREEMENT DISCUSSED WITH NURSING STAFF ALSO Condition: Improved - Instructions Referrals: Shreya Best MD [Primary Care Provider] - Disposition: HOME - Home Medications Comprehensive Discharge Medication List: Ambulatory Orders Docusate Sodium 100 mg PO BID 06/03/16 Multivitamin [Poly-Vitamin] 1 each PO DAILY 06/03/16 Omeprazole [Prilosec] 40 mg PO DAILY 06/03/16 Apixaban [Eliquis] 5 mg PO BID 08/25/17 Calcium Carb/Vitamin D3/Vit K1 [Calcium + D Soft Chewable Tab] 1 each PO BID 01/06 Tamoxifen Citrate 20 mg PO DAILY 08/25/17 Calcium 500Mg/Vit-D 200 Units [Os-Jose 500+D -] 1 tab PO BID tab 08/28/17 Carvedilol [Coreg -] 25 mg PO BID tablet 08/28/17 Enalapril Maleate [Vasotec -] 5 mg PO BID tablet 08/28/17 Rosuvastatin [Crestor -] 20 mg PO HS tablet 08/28/17 Spironolactone [Aldactone -] 25 mg PO DAILY tablet 08/28/17
== END 2018-05-23 13:27 | disposition home or self-care (01) ==
LOC: JER 10:43 → JERBED 19:31 → J4S 05-22 03:28
PROVIDERS: ADMIT Internal Medicine; ATTEND Internal Medicine
PROC: 3E033NZ Introduction of Analgesics, Hypnotics, Sedatives into Peripheral Vein, Percutaneous Approach (ICD-10-PCS; principal; 2018-05-21)
PROC: 3E0337Z Introduction of Electrolytic and Water Balance Substance into Peripheral Vein, Percutaneous Approach (ICD-10-PCS; 2018-05-21)
DX: R55 Syncope and collapse (principal); E11.22 Type 2 diabetes mellitus with diabetic chronic kidney disease; I12.9 Hypertensive chronic kidney disease with stage 1 through stage 4 chronic kidney disease, or unspecified chronic kidney disease; N18.9 Chronic kidney disease, unspecified; N17.9 Acute kidney failure, unspecified; I25.10 Atherosclerotic heart disease of native coronary artery without angina pectoris; E78.5 Hyperlipidemia, unspecified; I51.9 Heart disease, unspecified; I69.354 Hemiplegia and hemiparesis following cerebral infarction affecting left non-dominant side; I95.9 Hypotension, unspecified; I67.2 Cerebral atherosclerosis; K21.9 Gastro-esophageal reflux disease without esophagitis; I49.3 Ventricular premature depolarization; Z79.01 Long term (current) use of anticoagulants; Z95.5 Presence of coronary angioplasty implant and graft; Z86.711 Personal history of pulmonary embolism; Z86.718 Personal history of other venous thrombosis and embolism; Z85.3 Personal history of malignant neoplasm of breast; Z90.13 Acquired absence of bilateral breasts and nipples
CPT/HCPCS: 36415; 36600; 70450-TC; 70551-TC; 71045-TC-FY; 71275-TC; 74174-TC; 80053; 80061; 81003; 81015; 82607; 82803; 82962; 83605; 83721; 83735; 84443; 84484; 85025; 85610; 85651; 85730; 87040; 87086; 87186; 93005; 93010; 93306-TC; 96361; 96374; 99285-25; G0378; J0131; J7030

== ENCOUNTER 2018-06-19 11:20 | Inpatient (IN) | payer OTHER ==
--- NOTE | 2018-06-19 12:09 | PDOC ---
History of Present Illness - General Chief Complaint: Nausea/Vomiting Stated Complaint: Nausea/Vomiting Time Seen by Provider: 06/19/18 11:56 History Source: Patient Exam Limitations: No Limitations - History of Present Illness Initial Comments: 06/19/18 12:40 68 year old female with PMH PE/DVT (on eliquis, has IVC filter), HTN, breast cancer with bilateral mastectomy, CKD, CVA with residual left sided weakness presnting to ED for black vomit. Pt states last night she ate pork, mashed potatoes and creamed spinach then three hours later had three episodes of vomiting black contents, which concerned her because she is anticoagulated. She states no one else ate the meal but her, and she has eaten this type of food in the past without any problems. She admits to shortness of breath yesterday, while she was out at the bank, she states normally she would not be as short of breath as she was yesterday. She denies fever, chills, diarrhea, dark stools, bright red blood in stools, abdominal pain, chest pain, cough. PCP - Nasir Khalil - [facility] - [facility] [place] Recent Hospital Course: -Admitted 05/22 -Discharged 05/23 Pt was admitted after a syncopal episode while in the hospital. EKG was significant for NSR with PVC bigeminy. MRI brain was significant for chronic infarcts, chronic encephalomalacia from past CVA, no acute findings. Pt was placed on Holter Monitor. Pt reports she did not go home with the holter monitor. Past History - Past Medical History Allergies/Adverse Reactions: Allergies Allergy/AdvReac Type Severity Reaction Status Date / Time No Known Drug Allergies Allergy Verified 06/19/18 11:50 Home Medications: Ambulatory Orders Docusate Sodium 100 mg PO BID 06/03/16 Multivitamin [Poly-Vitamin] 1 each PO DAILY 06/03/16 Omeprazole [Prilosec] 40 mg PO DAILY 06/03/16 Apixaban [Eliquis] 5 mg PO BID 08/25/17 Calcium Carb/Vitamin D3/Vit K1 [Calcium + D Soft Chewable Tab] 1 each PO BID 01/06 Tamoxifen Citrate 20 mg PO DAILY 08/25/17 Calcium 500Mg/Vit-D 200 Units [Os-Jose 500+D -] 1 tab PO BID tab 08/28/17 Carvedilol [Coreg -] 25 mg PO BID tablet 08/28/17 Enalapril Maleate [Vasotec -] 5 mg PO BID tablet 08/28/17 Rosuvastatin [Crestor -] 20 mg PO HS tablet 08/28/17 Spironolactone [Aldactone -] 25 mg PO DAILY tablet 08/28/17 Cancer: Yes (both breast) Cardiac Disorders: Yes (cad) CVA: Yes (x3) COPD: No Diabetes: Yes GI Disorders: Yes (GERD) Disorders: No HTN: Yes Hypercholesterolemia: Yes Liver Disease: No Thyroid Disease: No - Surgical History Cardiac Surgery: Yes (card stent x2) Lung Surgery: No Orthopedic Surgery: Yes (R. Foot bunionectomy) - Immunization History Immunization Up to Date: Yes - Suicide/Smoking/Psychosocial Hx Smoking Status: No Smoking History: Former smoker Have you smoked in the past 12 months: No Number of Cigarettes Smoked Daily: 0 If you are a former smoker, when did you quit?: 6 YEARS AGO Information on smoking cessation initiated: No Hx Alcohol Use: No Drug/Substance Use Hx: No Substance Use Type: None Hx Substance Use Treatment: No Review of Systems - Review of Systems Able to Perform ROS?: Yes Comments:: 06/19/18 12:52 General: denies fever, chills, night sweats, generalized weakness. HEENT: denies sore throat, rhinorrhea, ear pain. Heart: denies chest pain, palpitations, syncope, lower extremity swelling, diaphoresis. Respiratory: admit to shortness of breath. denies cough, sputum production. Abdomen: admits to nausea, vomiting, hematemesis. denies abdominal pain, diarrhea, constipation, blood in stool. : denies dysuria, increased urinary frequency, hematuria, urinary incontinence , flank pain. Back: denies back pain. Musculoskeletal: denies joint pain, muscle pain, joint swelling. Neurological: denies headache, dizziness, numbness, tingling, weakness. Skin: denies rash, laceration, abrasion. *Physical Exam - Vital Signs Last Vital Signs Temp Pulse Resp BP Pulse Ox 98.7 F 81 18 130/66 95 06/19/18 11:43 06/19/18 11:43 06/19/18 11:43 06/19/18 11:43 06/19/18 11:43 - Physical Exam Comments: 06/19/18 12:53 Constitutional: Well-nourished, Well-developed, appearing stated age. obese. actively vomiting brown vomit. HEENT: head is normocephalic, atraumatic. EOMI. PERRLA. Neck: supple. Full ROM. Heart: regular rhythm. distant heart sounds. Lungs: clear to auscultation bilaterally. no crackles, rhonchi or wheezing. no stridor. Abdomen: soft, nontender. decreased bowel sounds. no rebound, guarding, masses. Extremities: Peripheral pulses intact and equal. No lower extremity edema. Neurological: CN 2-12 grossly intact. Moves all four extremities. Psych: awake, alert, oriented x3. Follows commands. Answers questions appropriately. Heart Score/ECG Review - ECG Impressions Comment:: 06/19/18 13:10 EKG performed at 1146 - rate 74, NSR, occasional PVCs, slight left axis, no acute ST changes. ED Treatment Course - LABORATORY CBC & Chemistry Diagram: 06/20/18 06:00 06/20/18 06:00 Medical Decision Making - Medical Decision Making 06/19/18 12:49 68 year old female with PMH PE/DVT (on eliquis), HTN, breast cancer with bilateral mastectomy, CVA with residual left sided weakness presenting to ED for hematemesis, black in color. Initial Vital Signs Temp Pulse Resp BP Pulse Ox 98.7 F 81 18 130/66 95 06/19/18 11:43 06/19/18 11:43 06/19/18 11:43 06/19/18 11:43 06/19/18 11:43 Afebrile. Diastolic hypotension. No hypoxia on room air. No tachycardia. Concern for upper GI bleed. Lower concern for pancreatitis. - Pending CBC, CMP, T/S, coags, lactate, lipase, guiac, CXR. - Abdomen soft, non-tender, no indication for imaging of abdomen at this time. Concern for ACS, 2 stents, potential GI bleed could place strain on her heart. - Pending EKG, cardiac enzymes. Zofran ordered for nausea. Protonix loading dose and continuous infusion ordered for hematemesis. 1 large bore IV placed in the right AC. 1 large bore IV placed in the right hand. pt has bilateral mastectomy, only able to have IV in the right arm. 06/19/18 13:06 EKG performed at 1146 - rate 74, NSR, occasional PVCs, slight left axis, no acute ST changes. CBC WBC 6.0 K/mm3 (4.0-10.0) 06/19/18 12:30 RBC 3.77 M/mm3 (3.60-5.2) 06/19/18 12:30 Hgb 10.3 GM/dL (10.7-15.3) L 06/19/18 12:30 Hct 32.6 % (32.4-45.2) 06/19/18 12:30 MCV 86.4 fl (80-96) 06/19/18 12:30 MCH 27.3 pg (25.7-33.7) 06/19/18 12:30 MCHC 31.7 g/dl (32.0-36.0) L 06/19/18 12:30 RDW 14.3 % (11.6-15.6) 06/19/18 12:30 Plt Count 248 K/MM3 (134-434) 06/19/18 12:30 MPV 9.3 fl (7.5-11.1) 06/19/18 12:30 Absolute Neuts (auto) 2.8 K/mm3 (1.5-8.0) 06/19/18 12:30 Neutrophils % 46.5 % (42.8-82.8) 06/19/18 12:30 Lymphocytes % 38.2 % (8-40) 06/19/18 12:30 Monocytes % 10.2 % (3.8-10.2) 06/19/18 12:30 Eosinophils % 4.2 % (0-4.5) 06/19/18 12:30 Basophils % 0.9 % (0-2.0) 06/19/18 12:30 Nucleated RBC % 0 % (0-0) 06/19/18 12:30 No leukocytosis. Anemia, Hgb 10.3, normal MCV. Hx Hgb 10.5 on 05/22. - Pending guiac. 06/19/18 13:14 CMP Sodium 142 mmol/L (136-145) 06/19/18 12:30 Potassium 4.3 mmol/L (3.5-5.1) 06/19/18 12:30 Chloride 109 mmol/L (98-107) H 06/19/18 12:30 Carbon Dioxide 23 mmol/L (21-32) 06/19/18 12:30 Anion Gap 10 MMOL/L (8-16) 06/19/18 12:30 BUN 29 mg/dL (7-18) H 06/19/18 12:30 Creatinine 1.4 mg/dL (0.55-1.3) H 06/19/18 12:30 Creat Clearance w eGFR 37.18 (>60) 06/19/18 12:30 Random Glucose 83 mg/dL (74-106) 06/19/18 12:30 Lactic Acid 1.2 mmol/L (0.4-2.0) 06/19/18 12:30 Calcium 9.6 mg/dL (8.5-10.1) 06/19/18 12:30 Total Bilirubin 0.2 mg/dL (0.2-1) 06/19/18 12:30 AST 20 U/L (15-37) 06/19/18 12:30 ALT 28 U/L (13-61) 06/19/18 12:30 Alkaline Phosphatase 63 U/L (45-117) 06/19/18 12:30 Creatine Kinase 131 IU/L (26-192) 06/19/18 12:30 Troponin I < 0.02 ng/ml (0.00-0.05) 06/19/18 12:30 Total Protein 6.6 g/dl (6.4-8.2) 06/19/18 12:30 Albumin 3.4 g/dl (3.4-5.0) 06/19/18 12:30 Lipase 245 U/L (73-393) 06/19/18 12:30 BUN 29, would expect higher BUN with upper GI bleed. Cr 1.4, similar to prior. BUN/Cr = 20. Cardiac enzymes negative. 06/19/18 13:[address] Best, who would like the patient to be admitted and GI consulted. Pt will be admitted. 06/19/18 14:[address] Funez, who request an abdominal XR and for the patient to be admitted on Tele due to cardiac history. Pending abdominal XR. Marl[place] positive for blood. INR, PTT INR 1.38 (0.83-1.09) H 06/19/18 13:45 Blood Type Blood Type A POSITIVE 06/19/18 12:30 06/19/18 15:29 Abdomen XR report - IVC filter identified. No evidence of intestinal obstruction pr pneumoperitoneum. CXR report - no evidence of active pulmonary disease. *DC/Admit/Observation/Transfer Diagnosis at time of Disposition: Acute upper gastrointestinal bleeding, Anticoagulated, History of DVT (deep vein thrombosis), History of pulmonary embolism, History of coronary artery disease - Discharge Dispostion Condition at time of disposition: Stable Decision to Admit order: Yes - Referrals - Patient Instructions - Post Discharge Activity
--- NOTE | 2018-06-19 12:39 | PDOC ---
Attending Attestation - Resident Resident Name: Radha Prescott - ED Attending Attestation I have performed the following: I have examined & evaluated the patient, The case was reviewed & discussed with the resident, I agree w/resident's findings & plan, Exceptions are as noted - HPI HPI: 06/19/18 13:37 The patient is a 68-year-old female with past medical history significant for HTN, DM, CKD, s/p R carotid endarterectomy, IL w/ stents, CVA s/p 2 stents ( with residual L sided weakness-ambulates with RW) BRCA+ on Tamoxifen, PE and DVT (On Eliquis) presents to the emergency department with nausea and vomiting. The patient reports last night, 3 hours after eating creamed spinach and mashed potatoes, she had a single episode of black emesis. Denies any following episodes. The patient states she called Dr. Florentino Best, who referred the patient to the ED. The patient arrived at the ED via EMS. While the patient was being triaged, the patient had another episode of small volume black emesis. The nurse reports the patient vomited undigested food with dark brown blood. The patient denies chest pain, abdominal pain, diarrhea or constipation. The patient reports she felt an increase in shortness of breath earlier yesterday when she [place] the [place]. Allergies: NKDA Social history: No past or present tobacco, alcohol or recreational drug use reported. Surgical history: stent placement, bilateral mastectomy 2 years ago PCP: Dr. Best. Oncology: Dr. Leija. Neurology: Dr. Fernandes. - Physicial Exam PE: 06/19/18 13:40 agree with resident exam - Medical Decision Making 06/19/18 12:45 68-year-old female with a history of multiple medical problems, on Eliquis, presents to the emergency Department with 2 episodes of black emesis concerning for upper GI bleed. Vitals stable at this time. Abdominal exam is benign with no tenderness palpation. 2 IVs placed, patient will be started on a PPI. Will consult GI, check labs and admit. 06/19/18 14:[address] Best by Dr. Prescott, GI c/s pending. Pt is stable. Case discussed in detail with admitting physician including history, physical exam and ancillary studies. Admitting physician has assumed care for the patient, will follow all pending diagnostics and will complete the evaluation and treatment. Heart Score/ECG Review #1 06/19/18 13:40 Twelve-lead EKG was performed and reviewed by me. Sinus rhythm, rate 74. Normal axis. No ST elevations.+ Occasional PVCs.
[2018-06-19] MEDS ORDERED: ONDANSETRON 4 MG/2 ML VIAL IVPUSH ONE (12:46)
[2018-06-19] MEDS ORDERED: PANTOPRAZOLE SODIUM 40 MG VIAL IVPUSH ONE (12:47)
[2018-06-19] MEDS ORDERED: ONDANSETRON 4 MG/2 ML VIAL ONE (12:49)
[2018-06-19] MEDS ORDERED: PANTOPRAZOLE SODIUM 40 MG VIAL ONE ×2 (12:50→13:02)
[2018-06-19 12:52] LABS: BASO % 0.9 % (0-2.0); EOS % 4.2 % (0-4.5); HEMATOCRIT 32.6 % (32.4-45.2); HEMOGLOBIN 10.3 GM/dL (10.7-15.3); LYMPH % 38.2 % (8-40); MCH 27.3 pg (25.7-33.7); MCHC 31.7 g/dl (32.0-36.0); MEAN CELL VOLUME 86.4 fl (80-96); MEAN PLT VOLUME 9.3 fl (7.5-11.1); MONO % 10.2 % (3.8-10.2); NEUT % 46.5 % (42.8-82.8); PLATELET COUNT 248 K/MM3 (134-434); RBC 3.77 M/mm3 (3.60-5.2); RDW 14.3 % (11.6-15.6)
[2018-06-19] MEDS ORDERED: PANTOPRAZOLE SODIUM 80 MG in SODIUM CHLORIDE 100 ML IVPB SCH (13:00)
[2018-06-19 13:12] LABS: ALBUMIN 3.4 g/dl (3.4-5.0); ALK PHOS 63 U/L (45-117); ANION GAP 10 MMOL/L (8-16); BILIRUBIN,TOTAL 0.2 mg/dL (0.2-1); BLOOD UREA NITROGEN 29 mg/dL (7-18); CALCIUM 9.6 mg/dL (8.5-10.1); CHLORIDE 109 mmol/L (98-107); CO2 23 mmol/L (21-32); CREATININE 1.4 mg/dL (0.55-1.3); GLUCOSE,RANDOM 83 mg/dL (74-106); LIPASE 245 U/L (73-393); POTASSIUM 4.3 mmol/L (3.5-5.1); SGOT/AST 20 U/L (15-37); SGPT/ALT 28 U/L (13-61); SODIUM 142 mmol/L (136-145); TOT PROT 6.6 g/dl (6.4-8.2)
[2018-06-19 13:59] LABS: INR 1.38 (0.83-1.09); PROTHROMBIN TIME (PATIENT) 16.3 SEC (9.7-13.0)
--- NOTE | 2018-06-19 15:18 | CON.GI ---
Consult Consult Specialty:: GI Referred by:: Dr. Mayda Best Reason for Consultation:: Coffee ground emesis - History of Present Illness Chief Complaint: Coffee ground emesis History of Present Illness: 68F admitted for evaluation of vomiting of coffee grounds. She states that this occurred yesterday without associated nausea or abdominal pain. It occurred once. She called Dr. Best who advised that she come to the hospital for further evaluation as she is on A/C for Recurrent DVT and history of PE. She decided to come today instead of last night. She ate breakfast and took her weliquis this morning and kept down bother her food and the medications. She does state that she subsequently vomited up clear phlegm. She denies a change in bowel habits. She denies overt rectal bleeding or melena. In review of [facility] she underwent EGD with Dr. Fair 01/18/11 revealing antral erosions and a schatzki's ring along with a hiatal hernia. Colonoscopy 05/10/[address] Fair revealed hepatic flexure polyps (hyperplastic), mild diverticulosis and was otherwise normal. An adequate prep was derscribed. She believes that she may have had one since that time with Dr. Fair however there is no record of a more recent colonoscopy in the [facility] system. She has been getting evaluated by her community dietitian Dr. Hyman given frequent PVC's noted on recent EKG during 05/09 hospitalization. There is no family history of colorectal cancer or other GI malignancy. ER triage vitals revealed T: 98 P: 81 BP: 130/66. Hgb in ED 10.6 and this seems to be her baseline. Her home medications include a PPI. 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) Cardio/Vascular: Yes: CAD (with cardiac stenting x 2), Deep Vein Thrombosis, HTN , Hyperlipdemia Pulmonary: Yes: Pulmonary Embolus Heme/Onc: Yes: Other (DVT) - Past Surgical History Past Surgical History: Yes: Hysterectomy (ELIZABETH/BSO), Mastectomy (and lumpectomy) , Stent Additional Surgical History: IVC filter - Alcohol/Substance Use Hx Alcohol Use: No History of Substance Use: reports: None - Smoking History Smoking history: Former smoker Have you smoked in the past 12 months: No Aproximately how many cigarettes per day: 0 If you are a former smoker, when did you quit?: 6 YEARS AGO - Social History 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 Home Medications - Allergies Allergies/Adverse Reactions: Allergies Allergy/AdvReac Type Severity Reaction Status Date / Time No Known Drug Allergies Allergy Verified 06/19/18 11:50 - Home Medications Home Medications: Ambulatory Orders Docusate Sodium 100 mg PO BID 06/03/16 Multivitamin [Poly-Vitamin] 1 each PO DAILY 06/03/16 Omeprazole [Prilosec] 40 mg PO DAILY 06/03/16 Apixaban [Eliquis] 5 mg PO BID 08/25/17 Calcium Carb/Vitamin D3/Vit K1 [Calcium + D Soft Chewable Tab] 1 each PO BID 01/06 Tamoxifen Citrate 20 mg PO DAILY 08/25/17 Calcium 500Mg/Vit-D 200 Units [Os-Jose 500+D -] 1 tab PO BID tab 08/28/17 Carvedilol [Coreg -] 25 mg PO BID tablet 08/28/17 Enalapril Maleate [Vasotec -] 5 mg PO BID tablet 08/28/17 Rosuvastatin [Crestor -] 20 mg PO HS tablet 08/28/17 Spironolactone [Aldactone -] 25 mg PO DAILY tablet 08/28/17 Family Disease History - Family Disease History Family Disease History: CA: Sister (6, alive: 1 with BCA), Other: Father ( 88: CHF), Mother (: 70's: CHF), Brother (6: : "heart problems"), Sister Other Family History: No children. No family history of colorectal cancer Review of Systems - Review of Systems Constitutional: denies: Chills Cardiovascular: denies: Chest Pain Respiratory: denies: SOB Gastrointestinal: reports: Vomiting. denies: Abdominal Pain, Bloating, Constipation, Diarrhea, Melena, Nausea, Rectal Bleeding, Vomiting Blood Physical Exam-GI Vital Signs: Vital Signs Temperature 98.6 F 06/19/18 14:34 Pulse Rate 78 06/19/18 14:34 Respiratory Rate 18 06/19/18 14:34 Blood Pressure 127/64 06/19/18 14:34 O2 Sat by Pulse Oximetry (%) 97 06/19/18 14:34 Constitutional: Yes: Calm Eyes: No: Sclera Icterus Cardiovascular: Yes: Bradycardia. No: Murmur Respiratory: Yes: CTA Bilaterally Gastrointestinal Inspection: Yes: Scars (Pelvic surgical scar) ...Auscultate: Yes: Normoactive Bowel Sounds ...Palpate: No: Hepatomegaly, Splenomegaly, Tenderness ...Percussion: No: Tympanitic ...Rectal Exam: Yes: Other (No external lesions, no masses, trace light brown stool guaiac +) Edema: No (No LE edema) Neurological: Yes: Alert, Oriented Labs: CBC, BMP 06/19/18 12:30 06/19/18 12:30 INR, PTT INR 1.38 (0.83-1.09) H 06/19/18 13:45 Imaging - Results X-ray: Image Reviewed (Non-obstructive pattern and gastric bubble does not appear dilated) Problem List - Problems (1) Coffee ground emesis Assessment/Plan: No further vomiting, admission H/H at baseline despite event occurring several hours before ER evaluation. ? if trivial UGIB vs. vomiting odf retained gastric content. She ius noted to be guaiac positive on my exam and from specimen sent from ER. This was discussed with Samantha. I explained that given that she will need to maintained on anticoagulation and with finding of occiult blood in her stoo / coffee ground emesis, both EGD and colonoscopy can be performed while she is inpatient. I explained that this would be to exclude sources of bleeding such as bleeding blood vessels, polyps nand cancer of the intestinal tract such as colon cancer. We discussed potential risks of the procedures like but not limited to bleeding, perfroation requiring surgery to rerpair, infection and sedation medication effects all of which could be potenhtially life threatening. She has agreed to the procedures. Hold eliuquis , Continue bridging anticoagulation is necessary. Heparin or lovenox will need to be held friday morning. Clear liquids Daily PPI, D/C protonix drip Monitored setting for now Code(s): K92.0 - HEMATEMESIS
--- NOTE | 2018-06-19 15:53 | CON.CARD ---
Consult Consult Specialty:: Cardiology Referred by:: Chris Elise DO Reason for Consultation:: Pre-procedure cardiovascular evaluation - History of Present Illness Chief Complaint: Coffee ground emesis History of Present Illness: Patient is a 68 year old female with underlying history of HTN , ASHD, S/P DEAN mid LAD ISR, angina pectoris, CVA with residual left sided weakness, s/p lumpectomy for breast cancer, history of DVT and PTE post IVC filter on Eliquis, LV systolic dysfunction, frequent PVC carotid stenosis s/p right CEA and hypercholesterolemia, vasovagal near syncope last office visit presented with coffee ground emesis without associated nausea or abdominal pain, hematochezia or melena. Regarding CV symptoms, she denies chest pain, dyspnea, palpitations, orthopnea, PND or LE edema, ambulates with walker assistance. 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) Cardio/Vascular: Yes: CAD (with cardiac stenting x 2), Deep Vein Thrombosis, HTN , Hyperlipdemia Pulmonary: Yes: Pulmonary Embolus - Past Surgical History Past Surgical History: Yes: Hysterectomy (ELIZABETH/BSO), Mastectomy (and lumpectomy) , Stent Additional Surgical History: IVC filter - Alcohol/Substance Use Hx Alcohol Use: No History of Substance Use: reports: None - Smoking History Smoking history: Former smoker Have you smoked in the past 12 months: No Aproximately how many cigarettes per day: 0 If you are a former smoker, when did you quit?: 6 YEARS AGO - Social History 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 Home Medications - Allergies Allergies/Adverse Reactions: Allergies Allergy/AdvReac Type Severity Reaction Status Date / Time No Known Drug Allergies Allergy Verified 06/19/18 11:50 - Home Medications Home Medications: Ambulatory Orders Docusate Sodium 100 mg PO BID 06/03/16 Multivitamin [Poly-Vitamin] 1 each PO DAILY 06/03/16 Omeprazole [Prilosec] 40 mg PO DAILY 06/03/16 Apixaban [Eliquis] 5 mg PO BID 08/25/17 Calcium Carb/Vitamin D3/Vit K1 [Calcium + D Soft Chewable Tab] 1 each PO BID 01/06 Tamoxifen Citrate 20 mg PO DAILY 08/25/17 Calcium 500Mg/Vit-D 200 Units [Os-Jose 500+D -] 1 tab PO BID tab 08/28/17 Carvedilol [Coreg -] 25 mg PO BID tablet 08/28/17 Enalapril Maleate [Vasotec -] 5 mg PO BID tablet 08/28/17 Rosuvastatin [Crestor -] 20 mg PO HS tablet 08/28/17 Spironolactone [Aldactone -] 25 mg PO DAILY tablet 08/28/17 Family Disease History - Family Disease History Family Disease History: CA: Sister (6, alive: 1 with BCA), Other: Father ( 88: CHF), Mother (: 70's: CHF), Brother (6: : "heart problems"), Sister Other Family History: No children. No family history of colorectal cancer Review of Systems - Review of Systems Constitutional: reports: No Symptoms Eyes: reports: No Symptoms HENT: reports: No Symptoms Neck: reports: No Symptoms Cardiovascular: reports: No Symptoms Respiratory: reports: No Symptoms Gastrointestinal: reports: Nausea, Vomiting Genitourinary: reports: No Symptoms Musculoskeletal: reports: No Symptoms Integumentary: reports: No Symptoms Neurological: reports: No Symptoms Endocrine: reports: No Symptoms Vital Signs: Vital Signs Temperature 98.6 F 06/19/18 14:34 Pulse Rate 78 06/19/18 14:34 Respiratory Rate 18 06/19/18 14:34 Blood Pressure 127/64 06/19/18 14:34 O2 Sat by Pulse Oximetry (%) 97 06/19/18 14:34 Constitutional: Yes: No Distress, Calm Neck: Yes: Supple Respiratory: Yes: Regular, CTA Bilaterally Gastrointestinal: Yes: Soft, Hypoactive Bowel Sounds, Vomiting Cardiovascular: Yes: Regular Rate and Rhythm JVD: No Carotid Bruit: No Heart Sounds: Yes: S1, S2 Edema: No - Other Data Labs, Other Data: CBC, BMP 06/19/18 12:30 06/19/18 12:30 INR, PTT INR 1.38 (0.83-1.09) H 06/19/18 13:45 Troponin, BNP 06/19/18 12:30 Troponin I < 0.02 Troponin, BNP 06/19/18 12:30 Troponin I < 0.02 Echo: Report Reviewed Ejection Fraction %: LVEF > or = 40 % Assessment/Plan 06/16/2018 ECG: SR @ 74 with PVC c/w previous ECG 05/21/2018 no sig change 08/13/2017 MUGA: Normal RV size and fxn with mild-mod decreased LV systolic function and global HK LVEF 46% 08/13/2017 Echo: Mild-mod decreased LV fxn with mod LV dilatation LVEF 46% 05/21/2013 No ischemia, LVEF 66% 1. Coffee ground emesis and heme+ stools with need to exclude GIB sources - pre- procedure cardiovascular evaluation 2. Neurocardiogenic syncope with typical prodromal symptoms with h/o recurrence 2. ASHD, S/P DEAN to mid LAD, angina pectoris 3. LV systolic dysfunction post chemotherapy (LVEF 46%) 4. History of right MCA CVA/stroke with residual deficit 5. 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 HTN/HCVD 7. Hypercholesterolemia 8. Frequent PVC 9. Carotid disease s/p right CEA 10. Breast cancer s/p bilateral mastectomy with reconstruction 11. Acute on CKD pre-renal improving PLAN: 1. Given absence of symptoms of acute coronary syndrome, decompensated CHF or malignant arrhythmia, may proceed with endoscopy from cardiovascular standpoint without further testing 2. Hold Eliquis for 2 days prior and resume once post-procedure hemostasis has been achieved 3. Continue Carvedilol 25 bid, Crestor 20 qhs, holding Vasotec 5 bid and Aldactone 25 qd pending renal recovery 4. Continue PPI, clear liquid diet, monitor Hgb and transfuse to maintain above 8 5. Holter monitor to assess arrhythmia burden and echo to reassess LV fxn as outpatient 6. Thank you for consultative opportunity
[2018-06-19 18:51] VITALS: BMI 28.4
[2018-06-19] MEDS ORDERED: PT OWN MED DRAWER 7, Y5N ONE (21:18)
[2018-06-19] MEDS ORDERED: PATIENT'S OWN MEDICATION (NON-FORMULARY) (Calcium Carb/Vitamin D3/Vit K1 [Calcium + D Soft PO SCH (22:00)
[2018-06-19] MEDS ORDERED: ENALAPRIL MALEATE 5 MG TABLET (FP) PO SCH (22:00)
[2018-06-19] MEDS ORDERED: CARVEDILOL 25 MG TABLET (FP) PO SCH (22:00)
[2018-06-19] MEDS ORDERED: ROSUVASTATIN CA 20 MG TABLET (FP) PO SCH (22:00)
[2018-06-19] MEDS: ROSUVASTATIN CA 20 MG TABLET (FP) PO SCH (22:05)
[2018-06-19] MEDS: CALCIUM 500MG/VIT-D 200 UNITS COMBO TABLET (FP) PO SCH (22:05)
[2018-06-19] MEDS: CARVEDILOL 25 MG TABLET (FP) PO SCH (22:05)
[2018-06-19] MEDS: ENALAPRIL MALEATE 5 MG TABLET (FP) PO SCH (22:07)
[2018-06-19] MEDS: DOCUSATE SODIUM 100 MG CAPSULE (FP) PO SCH (22:07)
[2018-06-20 07:20] LABS: BASO % 0.4 % (0-2.0); EOS % 5.7 % (0-4.5); HEMATOCRIT 33.7 % (32.4-45.2); HEMOGLOBIN 10.4 GM/dL (10.7-15.3); LYMPH % 40.5 % (8-40); MCH 26.5 pg (25.7-33.7); MEAN CELL VOLUME 85.5 fl (80-96); MEAN PLT VOLUME 10.2 fl (7.5-11.1); MONO % 8.8 % (3.8-10.2); NEUT % 44.6 % (42.8-82.8); PLATELET COUNT 220 K/MM3 (134-434); RBC 3.94 M/mm3 (3.60-5.2); RDW 14.4 % (11.6-15.6); WHITE BLOOD COUNT 5.3 K/mm3 (4.0-10.0)
[2018-06-20 07:54] LABS: ALBUMIN 3.6 g/dl (3.4-5.0); ALK PHOS 62 U/L (45-117); ANION GAP 8 MMOL/L (8-16); BILIRUBIN,TOTAL 0.3 mg/dL (0.2-1); BLOOD UREA NITROGEN 20 mg/dL (7-18); CALCIUM 9.9 mg/dL (8.5-10.1); CHLORIDE 107 mmol/L (98-107); CO2 24 mmol/L (21-32); CREATININE 1.2 mg/dL (0.55-1.3); GLUCOSE,RANDOM 82 mg/dL (74-106); POTASSIUM 4.5 mmol/L (3.5-5.1); SGOT/AST 22 U/L (15-37); SGPT/ALT 28 U/L (13-61); SODIUM 139 mmol/L (136-145); TOT PROT 6.8 g/dl (6.4-8.2)
[2018-06-20] MEDS ORDERED: PT OWN MED DRAWER 7, Y5N ONE ×2 (08:16→21:31)
[2018-06-20] MEDS: MULTIVITAMINS (DAILY MVI) TABLET (FP) PO SCH (09:45)
[2018-06-20] MEDS: CALCIUM 500MG/VIT-D 200 UNITS COMBO TABLET (FP) PO SCH ×2 (09:45→23:09)
[2018-06-20] MEDS: TAMOXIFEN CITRATE 10 MG TABLET PO SCH (09:46)
[2018-06-20] MEDS: SPIRONOLACTONE 25 MG TABLET (FP) PO SCH (09:46)
[2018-06-20] MEDS: CARVEDILOL 25 MG TABLET (FP) PO SCH ×2 (09:46→23:09)
[2018-06-20] MEDS: ENALAPRIL MALEATE 5 MG TABLET (FP) PO SCH ×3 (09:46→23:10)
[2018-06-20] MEDS: DOCUSATE SODIUM 100 MG CAPSULE (FP) PO SCH ×2 (09:46→23:08)
--- NOTE | 2018-06-20 11:26 | PN ---
Progress Note, Physician Chief Complaint: Events noted Not in distress History of Present Illness: Patient was seen and examined. Awake and alert. Chart was reviewed Denies chest pain, SOB or palpitation - Current Medication List Current Medications: Active Medications Bisacodyl (Dulcolax -) 20 mg PO ONCE ONE Stop: 06/21/18 13:01 Calcium Carbonate/Cholecalciferol (Os-Jose 500+D -) 1 tab PO BID [facility] Last Admin: 06/20/18 09:45 Dose: 1 tab Carvedilol (Coreg -) 25 mg PO BID [facility] Last Admin: 06/20/18 09:46 Dose: 25 mg Docusate Sodium (Colace -) 100 mg PO BID [facility] Last Admin: 06/20/18 09:46 Dose: 100 mg Enalapril Maleate (Vasotec -) 5 mg PO BID [facility] Last Admin: 06/20/18 09:46 Dose: 5 mg Multivitamins/Minerals/Vitamin C (Tab-A-Vit -) 1 tab PO DAILY [facility] Last Admin: 06/20/18 09:45 Dose: 1 tab Pantoprazole Sodium (Protonix Iv) 40 mg IVPUSH DAILY [facility] Polyethylene Glycol (Miralax (For Bowel Prep) -) 255 gm PO ONCE ONE Stop: 06/21/18 15:01 Rosuvastatin Calcium (Crestor -) 20 mg PO HS [facility] Last Admin: 06/19/18 22:05 Dose: 20 mg Spironolactone (Aldactone -) 25 mg PO DAILY [facility] Last Admin: 06/20/18 09:46 Dose: 25 mg Tamoxifen Citrate (Tamoxifen Citrate) 20 mg PO DAILY [facility] Last Admin: 06/20/18 09:46 Dose: 20 mg - Objective Vital Signs: Vital Signs Temperature 97.9 F 06/20/18 09:00 Pulse Rate 60 06/20/18 09:00 Respiratory Rate 18 06/20/18 09:00 Blood Pressure 137/66 06/20/18 09:00 O2 Sat by Pulse Oximetry (%) 99 06/20/18 09:00 HENT: Yes: Atraumatic Cardiovascular: Yes: Regular Rate and Rhythm, S1, S2 Respiratory: Yes: CTA Bilaterally Gastrointestinal: Yes: Normal Bowel Sounds, Soft. No: Tenderness Edema: No Labs: CBC, BMP 06/20/18 06:00 06/20/18 06:00 INR, PTT INR 1.38 (0.83-1.09) H 06/19/18 13:45 Problem List - Problems (1) Coffee ground emesis Code(s): K92.0 - HEMATEMESIS (2) History of DVT (deep vein thrombosis) Code(s): Z86.718 - PERSONAL HISTORY OF OTHER VENOUS THROMBOSIS AND EMBOLISM (3) History of coronary artery disease Code(s): Z86.79 - PERSONAL HISTORY OF OTHER DISEASES OF THE CIRCULATORY SYSTEM (4) History of pulmonary embolism Code(s): Z86.711 - PERSONAL HISTORY OF PULMONARY EMBOLISM (5) Cerebral arteriosclerosis with history of previous stroke Code(s): I67.2 - CEREBRAL ATHEROSCLEROSIS; Z86.73 - PRSNL HX OF TIA (TIA), AND CEREB INFRC W/O RESID DEFICITS (6) History of pulmonary embolus (PE) Code(s): Z86.711 - PERSONAL HISTORY OF PULMONARY EMBOLISM (7) Hyperlipidemia Code(s): E78.5 - HYPERLIPIDEMIA, UNSPECIFIED Qualifiers: Hyperlipidemia type: pure hypercholesterolemia Qualified Code(s): E78.00 - Pure hypercholesterolemia, unspecified; E78.0 - Pure hypercholesterolemia (8) Hypertension Code(s): I10 - ESSENTIAL (PRIMARY) HYPERTENSION Qualifiers: Hypertension type: essential hypertension Qualified Code(s): I10 - Essential (primary) hypertension (9) S/P coronary artery stent placement Code(s): Z95.5 - PRESENCE OF CORONARY ANGIOPLASTY IMPLANT AND GRAFT (10) Syncope Code(s): R55 - SYNCOPE AND COLLAPSE Qualifiers: Syncope type: vasovagal syncope Qualified Code(s): R55 - Syncope and collapse (11) Systolic dysfunction without heart failure Code(s): I51.9 - HEART DISEASE, UNSPECIFIED Assessment/Plan 1. Coffee ground emesis and heme positive stools 2. Neurocardiogenic syncope with typical prodromal symptoms with h/o recurrence 2. ASHD, S/P DEAN to mid LAD, angina pectoris 3. LV systolic dysfunction post chemotherapy 4. History of right MCA CVA/stroke with residual deficit 5. 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 HTN/HCVD 7. Hypercholesterolemia 8. Frequent PVC 9. Carotid disease s/p right CEA 10. Breast cancer s/p bilateral mastectomy with reconstruction 11. Acute on CKD pre-renal improving PLAN: 1. Proceed with GI work up. No absolute contraindication 2. Hold Eliquis for 2 days prior and resume once post-procedure hemostasis has been achieved 3. Continue Carvedilol 25 bid, Crestor 20 qhs, holding Vasotec 5 bid and Aldactone 25 qd pending renal recovery 4. Holter monitor to assess arrhythmia burden and echocardiography to assess LV/ RV function as outpatient Mitchel Moeller MD
[2018-06-20] MEDS: PANTOPRAZOLE SODIUM 40 MG VIAL IVPUSH SCH (11:49)
--- NOTE | 2018-06-20 12:06 | HP ---
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) Cardiovascular: Yes: CAD (with cardiac stenting x 2), Deep Vein Thrombosis, HTN , Hyperlipdemia Pulmonary: Yes: Pulmonary Embolus Heme/Onc: Yes: Other (DVT) - Past Surgical History Past Surgical History: Yes: Hysterectomy (ELIZABETH/BSO), Mastectomy (and lumpectomy) , Stent - Smoking History Smoking history: Former smoker Have you smoked in the past 12 months: No Aproximately how many cigarettes per day: 0 If you are a former smoker, when did you quit?: 10 YEARS AGO - Alcohol/Substance Use Hx Alcohol Use: No History of Substance Use: reports: None - Social History 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 Home Medications - Allergies Allergies/Adverse Reactions: Allergies Allergy/AdvReac Type Severity Reaction Status Date / Time No Known Drug Allergies Allergy Verified 06/19/18 11:50 - Home Medications Home Medications: Ambulatory Orders Docusate Sodium 100 mg PO BID 06/03/16 Multivitamin [Poly-Vitamin] 1 each PO DAILY 06/03/16 Omeprazole [Prilosec] 40 mg PO DAILY 06/03/16 Apixaban [Eliquis] 5 mg PO BID 08/25/17 Calcium Carb/Vitamin D3/Vit K1 [Calcium + D Soft Chewable Tab] 1 each PO BID 01/06 Tamoxifen Citrate 20 mg PO DAILY 08/25/17 Calcium 500Mg/Vit-D 200 Units [Os-Jose 500+D -] 1 tab PO BID tab 08/28/17 Carvedilol [Coreg -] 25 mg PO BID tablet 08/28/17 Enalapril Maleate [Vasotec -] 5 mg PO BID tablet 08/28/17 Rosuvastatin [Crestor -] 20 mg PO HS tablet 08/28/17 Spironolactone [Aldactone -] 25 mg PO DAILY tablet 08/28/17 Family Disease History - Family Disease History Family Disease History: CA: Sister (6, alive: 1 with BCA), Other: Father ( 88: CHF), Mother (: 70's: CHF), Brother (6: : "heart problems"), Sister Other Family History: No children. No family history of colorectal cancer Review of Systems - Review of Systems Constitutional: reports: No Symptoms Eyes: reports: No Symptoms HENT: reports: No Symptoms Neck: reports: No Symptoms Cardiovascular: reports: No Symptoms Respiratory: reports: No Symptoms Gastrointestinal: reports: Vomiting Blood Genitourinary: reports: No Symptoms Musculoskeletal: reports: No Symptoms Neurological: reports: No Symptoms Endocrine: reports: No Symptoms Psychiatric: reports: No Symptoms Physical Examination Vital Signs: Vital Signs Temperature 97.9 F 06/20/18 09:00 Pulse Rate 60 06/20/18 09:00 Respiratory Rate 18 06/20/18 09:00 Blood Pressure 137/66 06/20/18 09:00 O2 Sat by Pulse Oximetry (%) 99 06/20/18 09:00 Constitutional: Yes: No Distress, Calm Eyes: Yes: Conjunctiva Clear Neck: Yes: Supple Cardiovascular: Yes: Pulse Irregular Respiratory: Yes: Diminished Gastrointestinal: Yes: Soft Edema: No Neurological: Yes: Alert, Pre-Existing Deficit Psychiatric: Yes: Alert Labs: CBC, BMP 06/20/18 06:00 06/20/18 06:00 Imaging - Results Chest X-ray: Report Reviewed X-ray: Report Reviewed Problem List - Problems (1) Acute upper gastrointestinal bleeding Code(s): K92.2 - GASTROINTESTINAL HEMORRHAGE, UNSPECIFIED (2) Anticoagulated Code(s): Z79.01 - GROUP HOME (CURRENT) USE OF ANTICOAGULANTS (3) Coffee ground emesis Code(s): K92.0 - HEMATEMESIS (4) History of DVT (deep vein thrombosis) Code(s): Z86.718 - PERSONAL HISTORY OF OTHER VENOUS THROMBOSIS AND EMBOLISM (5) History of coronary artery disease Code(s): Z86.79 - PERSONAL HISTORY OF OTHER DISEASES OF THE CIRCULATORY SYSTEM (6) History of pulmonary embolism Code(s): Z86.711 - PERSONAL HISTORY OF PULMONARY EMBOLISM (7) Breast cancer Code(s): C50.919 - MALIGNANT NEOPLASM OF UNSP SITE OF UNSPECIFIED FEMALE BREAST Qualifiers: Breast location: unspecified site of breast (8) Cerebral arteriosclerosis with history of previous stroke Code(s): I67.2 - CEREBRAL ATHEROSCLEROSIS; Z86.73 - PRSNL HX OF TIA (TIA), AND CEREB INFRC W/O RESID DEFICITS (9) Chronic anticoagulation Code(s): Z79.01 - DIRECTOR OF HOUSING AND ENERGY SERVICES (CURRENT) USE OF ANTICOAGULANTS (10) S/P coronary artery stent placement Code(s): Z95.5 - PRESENCE OF CORONARY ANGIOPLASTY IMPLANT AND GRAFT Assessment/Plan stable monitor h/h orders were written by me a/c on hold will follow discussed with pt in detail will follow
[2018-06-20] MEDS ORDERED: ENALAPRIL MALEATE 10 MG TABLET (FP) PO SCH (23:00)
[2018-06-20] MEDS: ROSUVASTATIN CA 20 MG TABLET (FP) PO SCH (23:08)
--- NOTE | 2018-06-20 23:15 | EKG ---
Test Reason : Blood Pressure : / mmHG Vent. Rate : 074 BPM Atrial Rate : 074 BPM P-R Int : 152 ms QRS Dur : 088 ms QT Int : 378 ms P-R-T Axes : 057 -04 016 degrees QTc Int : 419 ms SINUS RHYTHM WITH OCCASIONAL PREMATURE VENTRICULAR COMPLEXES OTHERWISE NORMAL ECG WHEN COMPARED WITH ECG OF 21-MAY-2018 10:50, NO SIGNIFICANT CHANGE WAS FOUND Confirmed by CHEN TINOCO MD ([id number]) on 06/20/2018 11:15:30 PM Referred By: Confirmed By:CHEN TINOCO MD
[2018-06-21 08:14] LABS: BASO % 1.3 % (0-2.0); EOS % 4.8 % (0-4.5); HEMATOCRIT 35.7 % (32.4-45.2); HEMOGLOBIN 11.5 GM/dL (10.7-15.3); LYMPH % 37.5 % (8-40); MCH 27.8 pg (25.7-33.7); MCHC 32.2 g/dl (32.0-36.0); MEAN CELL VOLUME 86.4 fl (80-96); MEAN PLT VOLUME 9.9 fl (7.5-11.1); MONO % 8.8 % (3.8-10.2); NEUT % 47.6 % (42.8-82.8); RBC 4.13 M/mm3 (3.60-5.2); RDW 14.6 % (11.6-15.6); WHITE BLOOD COUNT 5.7 K/mm3 (4.0-10.0)
[2018-06-21] MEDS: CALCIUM 500MG/VIT-D 200 UNITS COMBO TABLET (FP) PO SCH ×2 (09:26→22:36)
[2018-06-21] MEDS: MULTIVITAMINS (DAILY MVI) TABLET (FP) PO SCH (09:26)
[2018-06-21] MEDS: SPIRONOLACTONE 25 MG TABLET (FP) PO SCH (09:26)
[2018-06-21] MEDS: CARVEDILOL 25 MG TABLET (FP) PO SCH ×2 (09:26→22:36)
[2018-06-21] MEDS: DOCUSATE SODIUM 100 MG CAPSULE (FP) PO SCH ×2 (09:26→22:36)
[2018-06-21] MEDS: PANTOPRAZOLE SODIUM 40 MG VIAL IVPUSH SCH (09:26)
[2018-06-21] MEDS: TAMOXIFEN CITRATE 10 MG TABLET PO SCH (09:27)
[2018-06-21] MEDS: ENALAPRIL MALEATE 5 MG TABLET (FP) PO SCH ×2 (09:27→22:36)
--- NOTE | 2018-06-21 10:10 | PN ---
Progress Note, Physician Chief Complaint: Events noted Not in distress History of Present Illness: Patient was seen and examined. Awake and alert. Chart was reviewed Denies chest pain, SOB or palpitation - Current Medication List Current Medications: Active Medications Bisacodyl (Dulcolax -) 20 mg PO ONCE ONE Stop: 06/21/18 13:01 Calcium Carbonate/Cholecalciferol (Os-Jose 500+D -) 1 tab PO BID [facility] Last Admin: 06/21/18 09:26 Dose: 1 tab Carvedilol (Coreg -) 25 mg PO BID [facility] Last Admin: 06/21/18 09:26 Dose: 25 mg Docusate Sodium (Colace -) 100 mg PO BID [facility] Last Admin: 06/21/18 09:26 Dose: 100 mg Enalapril Maleate (Vasotec -) 5 mg PO BID [facility] Last Admin: 06/21/18 09:27 Dose: 5 mg Multivitamins/Minerals/Vitamin C (Tab-A-Vit -) 1 tab PO DAILY [facility] Last Admin: 06/21/18 09:26 Dose: 1 tab Pantoprazole Sodium (Protonix Iv) 40 mg IVPUSH DAILY [facility] Last Admin: 06/21/18 09:26 Dose: 40 mg Polyethylene Glycol (Miralax (For Bowel Prep) -) 255 gm PO ONCE ONE Stop: 06/21/18 15:01 Rosuvastatin Calcium (Crestor -) 20 mg PO HS [facility] Last Admin: 06/20/18 23:08 Dose: 20 mg Spironolactone (Aldactone -) 25 mg PO DAILY [facility] Last Admin: 06/21/18 09:26 Dose: 25 mg Tamoxifen Citrate (Tamoxifen Citrate) 20 mg PO DAILY [facility] Last Admin: 06/21/18 09:27 Dose: 20 mg - Objective Vital Signs: Vital Signs Temperature 98.1 F 06/21/18 08:57 Pulse Rate 78 06/21/18 08:57 Respiratory Rate 18 06/21/18 08:57 Blood Pressure 131/73 06/21/18 08:57 O2 Sat by Pulse Oximetry (%) 99 06/21/18 08:57 Neck: Yes: Supple Cardiovascular: Yes: Regular Rate and Rhythm, S1, S2 Respiratory: Yes: CTA Bilaterally Gastrointestinal: Yes: Normal Bowel Sounds, Soft. No: Tenderness Edema: No Problem List - Problems (1) Coffee ground emesis Code(s): K92.0 - HEMATEMESIS (2) History of DVT (deep vein thrombosis) Code(s): Z86.718 - PERSONAL HISTORY OF OTHER VENOUS THROMBOSIS AND EMBOLISM (3) History of coronary artery disease Code(s): Z86.79 - PERSONAL HISTORY OF OTHER DISEASES OF THE CIRCULATORY SYSTEM (4) History of pulmonary embolism Code(s): Z86.711 - PERSONAL HISTORY OF PULMONARY EMBOLISM (5) Cerebral arteriosclerosis with history of previous stroke Code(s): I67.2 - CEREBRAL ATHEROSCLEROSIS; Z86.73 - PRSNL HX OF TIA (TIA), AND CEREB INFRC W/O RESID DEFICITS (6) Hyperlipidemia Code(s): E78.5 - HYPERLIPIDEMIA, UNSPECIFIED Qualifiers: Hyperlipidemia type: pure hypercholesterolemia Qualified Code(s): E78.00 - Pure hypercholesterolemia, unspecified; E78.0 - Pure hypercholesterolemia (7) Hypertension Code(s): I10 - ESSENTIAL (PRIMARY) HYPERTENSION Qualifiers: Hypertension type: essential hypertension Qualified Code(s): I10 - Essential (primary) hypertension (8) S/P coronary artery stent placement Code(s): Z95.5 - PRESENCE OF CORONARY ANGIOPLASTY IMPLANT AND GRAFT (9) Syncope Code(s): R55 - SYNCOPE AND COLLAPSE Qualifiers: Syncope type: vasovagal syncope Qualified Code(s): R55 - Syncope and collapse (10) Systolic dysfunction without heart failure Code(s): I51.9 - HEART DISEASE, UNSPECIFIED Assessment/Plan 1. Coffee ground emesis and heme positive stools 2. Neurocardiogenic syncope with typical prodromal symptoms with h/o recurrence 2. ASHD, S/P DEAN to mid LAD, angina pectoris 3. LV systolic dysfunction post chemotherapy 4. History of right MCA CVA/stroke with residual deficit 5. 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 HTN/HCVD 7. Hypercholesterolemia 8. Frequent PVC 9. Carotid disease s/p right CEA 10. Breast cancer s/p bilateral mastectomy with reconstruction 11. Acute on CKD pre-renal improving PLAN: 1. Proceed with GI work up. No absolute contraindication 2. Hold Eliquis for 2 days prior and resume once post-procedure hemostasis has been achieved 3. Continue Carvedilol 25 bid, Crestor 20 qhs, holding Vasotec and Aldactone pending renal recovery Sang H. Sunni MD
[2018-06-21] MEDS ORDERED: BISACODYL 5 MG TABLET.DR (FP) PO ONE (13:00)
[2018-06-21] MEDS ORDERED: POLYETHYLENE GLYCOL 3350 255 GM BTL PO ONE (15:00)
--- NOTE | 2018-06-21 15:45 | PN ---
Progress Note (short form) - Note Progress Note: pt seen/ examined. comfortable all f/u noted denies cp/sob. h/h stable for endo tomorrow Vital Signs Temp 98.1 F 06/21/18 08:57 Pulse 78 06/21/18 08:57 Resp 18 06/21/18 08:57 BP 131/73 06/21/18 08:57 Pulse Ox 99 06/21/18 08:57 Intake & Output 06/20/18 06/21/18 06/21/18 23:59 11:59 23:59 Intake Total 480 900 650 Balance 480 900 650 Intake: Oral 480 900 650 Other: Voiding Method Toilet Toilet # Unmeasured Voids Void 4 Bowel Movement Yes Yes # Bowel Movements 1 2 Active Medications Calcium Carbonate/Cholecalciferol (Os-Jose 500+D -) 1 tab PO BID [facility] Last Admin: 06/21/18 09:26 Dose: 1 tab Carvedilol (Coreg -) 25 mg PO BID [facility] Last Admin: 06/21/18 09:26 Dose: 25 mg Docusate Sodium (Colace -) 100 mg PO BID [facility] Last Admin: 06/21/18 09:26 Dose: 100 mg Enalapril Maleate (Vasotec -) 5 mg PO BID [facility] Last Admin: 06/21/18 09:27 Dose: 5 mg Multivitamins/Minerals/Vitamin C (Tab-A-Vit -) 1 tab PO DAILY [facility] Last Admin: 06/21/18 09:26 Dose: 1 tab Pantoprazole Sodium (Protonix Iv) 40 mg IVPUSH DAILY [facility] Last Admin: 06/21/18 09:26 Dose: 40 mg Rosuvastatin Calcium (Crestor -) 20 mg PO HS [facility] Last Admin: 06/20/18 23:08 Dose: 20 mg Spironolactone (Aldactone -) 25 mg PO DAILY [facility] Last Admin: 06/21/18 09:26 Dose: 25 mg Tamoxifen Citrate (Tamoxifen Citrate) 20 mg PO DAILY [facility] Last Admin: 06/21/18 09:27 Dose: 20 mg CBC, BMP 06/21/18 06:22 06/20/18 06:00 Physical Examination Constitutional: Yes: No Distress, Comfortable. Eyes: Yes: Conjunctiva Clear Neck: Yes: Supple. no jvd. Cardiovascular: Yes: Pulse Irregular Respiratory: Yes: Diminished Gastrointestinal: Yes: Soft/ non tender. bs+ Edema: No Neurological: Yes: Alert, Pre-Existing Deficit Psychiatric: Yes: Alert Imaging - Results Chest X-ray: Report Reviewed X-ray: Report Reviewed Assessment/Plan stable monitor h/h for endo tomorrow a/c on hold will follow discussed with pt /nursing staff. Problem List - Problems (1) Acute upper gastrointestinal bleeding Code(s): K92.2 - GASTROINTESTINAL HEMORRHAGE, UNSPECIFIED (2) Anticoagulated Code(s): Z79.01 - AGRICULTURAL EXTENSION SPECIALIST (CURRENT) USE OF ANTICOAGULANTS (3) Coffee ground emesis Code(s): K92.0 - HEMATEMESIS (4) History of DVT (deep vein thrombosis) Code(s): Z86.718 - PERSONAL HISTORY OF OTHER VENOUS THROMBOSIS AND EMBOLISM (5) History of coronary artery disease Code(s): Z86.79 - PERSONAL HISTORY OF OTHER DISEASES OF THE CIRCULATORY SYSTEM (6) History of pulmonary embolism Code(s): Z86.711 - PERSONAL HISTORY OF PULMONARY EMBOLISM (7) Breast cancer Code(s): C50.919 - MALIGNANT NEOPLASM OF UNSP SITE OF UNSPECIFIED FEMALE BREAST Qualifiers: Breast location: unspecified site of breast (8) Cerebral arteriosclerosis with history of previous stroke Code(s): I67.2 - CEREBRAL ATHEROSCLEROSIS; Z86.73 - PRSNL HX OF TIA (TIA), AND CEREB INFRC W/O RESID DEFICITS (9) Chronic anticoagulation Code(s): Z79.01 - CUSTODIAL (CURRENT) USE OF ANTICOAGULANTS (10) S/P coronary artery stent placement Code(s): Z95.5 - PRESENCE OF CORONARY ANGIOPLASTY IMPLANT AND GRAFT
[2018-06-21] MEDS ORDERED: PT OWN MED DRAWER 7, Y5N ONE (22:33)
[2018-06-21] MEDS: ROSUVASTATIN CA 20 MG TABLET (FP) PO SCH (22:36)
[2018-06-22] MEDS ORDERED: PT OWN MED DRAWER 7, Y5N ONE ×2 (09:03→21:23)
[2018-06-22] MEDS: CARVEDILOL 25 MG TABLET (FP) PO SCH ×2 (09:22→21:29)
[2018-06-22] MEDS: TAMOXIFEN CITRATE 10 MG TABLET PO SCH (09:22)
[2018-06-22] MEDS: PANTOPRAZOLE SODIUM 40 MG VIAL IVPUSH SCH (09:23)
[2018-06-22] MEDS: ENALAPRIL MALEATE 5 MG TABLET (FP) PO SCH ×2 (09:23→21:30)
--- NOTE | 2018-06-22 09:38 | PN ---
Progress Note (short form) - Note Progress Note: comfortable no new issues feels well. Vital Signs Temp 97.7 F 06/22/18 09:12 Pulse 71 06/22/18 09:12 Resp 18 06/22/18 09:12 BP 137/62 06/22/18 09:12 Pulse Ox 100 06/22/18 08:52 Intake & Output 06/21/18 06/21/18 06/22/18 11:59 23:59 11:59 Intake Total 900 650 Balance 900 650 Intake: Oral 900 650 Other: Voiding Method Toilet Toilet Toilet # Unmeasured Voids Void 4 Bowel Movement Yes Yes: colonoscopy prep Yes: colonoscopy prep # Bowel Movements 1 2 Active Medications Calcium Carbonate/Cholecalciferol (Os-Jose 500+D -) 1 tab PO BID [facility] Last Admin: 06/21/18 22:36 Dose: 1 tab Carvedilol (Coreg -) 25 mg PO BID [facility] Last Admin: 06/22/18 09:22 Dose: 25 mg Docusate Sodium (Colace -) 100 mg PO BID [facility] Last Admin: 06/21/18 22:36 Dose: 100 mg Enalapril Maleate (Vasotec -) 5 mg PO BID [facility] Last Admin: 06/22/18 09:23 Dose: 5 mg Multivitamins/Minerals/Vitamin C (Tab-A-Vit -) 1 tab PO DAILY [facility] Last Admin: 06/21/18 09:26 Dose: 1 tab Pantoprazole Sodium (Protonix Iv) 40 mg IVPUSH DAILY [facility] Last Admin: 06/22/18 09:23 Dose: 40 mg Rosuvastatin Calcium (Crestor -) 20 mg PO HS [facility] Last Admin: 06/21/18 22:36 Dose: 20 mg Spironolactone (Aldactone -) 25 mg PO DAILY [facility] Last Admin: 06/21/18 09:26 Dose: 25 mg Tamoxifen Citrate (Tamoxifen Citrate) 20 mg PO DAILY [facility] Last Admin: 06/22/18 09:22 Dose: 20 mg CBC, BMP 06/21/18 06:22 06/20/18 06:00 Physical Examination Constitutional: Yes: No Distress, Comfortable. Eyes: Yes: Conjunctiva Clear Neck: Yes: Supple. no jvd. Cardiovascular: Yes: Pulse Irregular Respiratory: Yes: Diminished at bases Gastrointestinal: Yes: Soft/ non tender. bs+ Edema: No Neurological: Yes: Alert, Pre-Existing Deficit Psychiatric: Yes: Alert Imaging - Results Chest X-ray: Report Reviewed X-ray: Report Reviewed Assessment/Plan stable monitor h/h for endo today a/c on hold will follow discussed with pt /nursing staff. further recommendations after endo. Problem List - Problems (1) Acute upper gastrointestinal bleeding Code(s): K92.2 - GASTROINTESTINAL HEMORRHAGE, UNSPECIFIED (2) Anticoagulated Code(s): Z79.01 - FPC (CURRENT) USE OF ANTICOAGULANTS (3) Coffee ground emesis Code(s): K92.0 - HEMATEMESIS (4) History of DVT (deep vein thrombosis) Code(s): Z86.718 - PERSONAL HISTORY OF OTHER VENOUS THROMBOSIS AND EMBOLISM (5) History of coronary artery disease Code(s): Z86.79 - PERSONAL HISTORY OF OTHER DISEASES OF THE CIRCULATORY SYSTEM (6) History of pulmonary embolism Code(s): Z86.711 - PERSONAL HISTORY OF PULMONARY EMBOLISM (7) Breast cancer Code(s): C50.919 - MALIGNANT NEOPLASM OF UNSP SITE OF UNSPECIFIED FEMALE BREAST Qualifiers: Breast location: unspecified site of breast (8) Cerebral arteriosclerosis with history of previous stroke Code(s): I67.2 - CEREBRAL ATHEROSCLEROSIS; Z86.73 - PRSNL HX OF TIA (TIA), AND CEREB INFRC W/O RESID DEFICITS (9) Chronic anticoagulation Code(s): Z79.01 - COMPENSATION AND BENEFITS MANAGER (CURRENT) USE OF ANTICOAGULANTS (10) S/P coronary artery stent placement Code(s): Z95.5 - PRESENCE OF CORONARY ANGIOPLASTY IMPLANT AND GRAFT
--- NOTE | 2018-06-22 11:58 | PN ---
Progress Note, Physician History of Present Illness: No further coffee ground emesis without associated nausea or abdominal pain, hematochezia or melena. Regarding CV symptoms, she denies chest pain, dyspnea, palpitations, orthopnea, PND or LE edema. - Current Medication List Current Medications: Active Medications Calcium Carbonate/Cholecalciferol (Os-Jose 500+D -) 1 tab PO BID [facility] Last Admin: 06/21/18 22:36 Dose: 1 tab Carvedilol (Coreg -) 25 mg PO BID [facility] Last Admin: 06/22/18 09:22 Dose: 25 mg Docusate Sodium (Colace -) 100 mg PO BID [facility] Last Admin: 06/21/18 22:36 Dose: 100 mg Enalapril Maleate (Vasotec -) 5 mg PO BID [facility] Last Admin: 06/22/18 09:23 Dose: 5 mg Multivitamins/Minerals/Vitamin C (Tab-A-Vit -) 1 tab PO DAILY [facility] Last Admin: 06/21/18 09:26 Dose: 1 tab Pantoprazole Sodium (Protonix Iv) 40 mg IVPUSH DAILY [facility] Last Admin: 06/22/18 09:23 Dose: 40 mg Rosuvastatin Calcium (Crestor -) 20 mg PO HS [facility] Last Admin: 06/21/18 22:36 Dose: 20 mg Spironolactone (Aldactone -) 25 mg PO DAILY [facility] Last Admin: 06/21/18 09:26 Dose: 25 mg Tamoxifen Citrate (Tamoxifen Citrate) 20 mg PO DAILY [facility] Last Admin: 06/22/18 09:22 Dose: 20 mg - Objective Vital Signs: Vital Signs Temperature 97.7 F 06/22/18 09:12 Pulse Rate 71 06/22/18 09:12 Respiratory Rate 18 06/22/18 10:00 Blood Pressure 137/62 06/22/18 09:12 O2 Sat by Pulse Oximetry (%) 100 06/22/18 10:00 Constitutional: Yes: No Distress, Calm Neck: Yes: Supple Cardiovascular: Yes: Regular Rate and Rhythm Respiratory: Yes: Regular, Diminished Gastrointestinal: Yes: Soft, Hypoactive Bowel Sounds Edema: No Labs: CBC, BMP 06/21/18 06:22 06/20/18 06:00 INR, PTT INR 1.38 (0.83-1.09) H 06/19/18 13:45 - ....Imaging EKG: Report Reviewed (Tele: [facility]) Problem List - Problems (1) Coffee ground emesis Code(s): K92.0 - HEMATEMESIS (2) History of DVT (deep vein thrombosis) Code(s): Z86.718 - PERSONAL HISTORY OF OTHER VENOUS THROMBOSIS AND EMBOLISM (3) History of coronary artery disease Code(s): Z86.79 - PERSONAL HISTORY OF OTHER DISEASES OF THE CIRCULATORY SYSTEM (4) History of pulmonary embolism Code(s): Z86.711 - PERSONAL HISTORY OF PULMONARY EMBOLISM (5) [id number] kidney injury Code(s): N17.9 - ACUTE KIDNEY FAILURE, UNSPECIFIED; N18.9 - CHRONIC KIDNEY DISEASE, UNSPECIFIED Qualifiers: Acute renal failure type: unspecified Chronic kidney disease stage: unspecified stage Qualified Code(s): N17.9 - Acute kidney failure, unspecified ; N18.9 - Chronic kidney disease, unspecified; N18.9 - Chronic kidney disease, unspecified (6) Breast cancer Code(s): C50.919 - MALIGNANT NEOPLASM OF UNSP SITE OF UNSPECIFIED FEMALE BREAST Qualifiers: Breast location: unspecified site of breast (7) Chronic anticoagulation Code(s): Z79.01 - LAST SORTER (CURRENT) USE OF ANTICOAGULANTS (8) Hyperlipidemia Code(s): E78.5 - HYPERLIPIDEMIA, UNSPECIFIED Qualifiers: Hyperlipidemia type: pure hypercholesterolemia Qualified Code(s): E78.00 - Pure hypercholesterolemia, unspecified; E78.0 - Pure hypercholesterolemia (9) Hypertension Code(s): I10 - ESSENTIAL (PRIMARY) HYPERTENSION Qualifiers: Hypertension type: essential hypertension Qualified Code(s): I10 - Essential (primary) hypertension (10) Premature ventricular contraction Code(s): I49.3 - VENTRICULAR PREMATURE DEPOLARIZATION (11) S/P coronary artery stent placement Code(s): Z95.5 - PRESENCE OF CORONARY ANGIOPLASTY IMPLANT AND GRAFT (12) Systolic dysfunction without heart failure Code(s): I51.9 - HEART DISEASE, UNSPECIFIED Assessment/Plan 06/16/2018 ECG: SR @ 74 with PVC c/w previous ECG 05/21/2018 no sig change 08/13/2017 MUGA: Normal RV size and fxn with mild-mod decreased LV systolic function and global HK LVEF 46% 08/13/2017 Echo: Mild-mod decreased LV fxn with mod LV dilatation LVEF 46% 05/21/2013 No ischemia, LVEF 66% 1. Coffee ground emesis and heme+ stools with need to exclude GIB sources - pre- procedure cardiovascular evaluation 2. Neurocardiogenic syncope with typical prodromal symptoms with h/o recurrence 3. ASHD, S/P DEAN to mid LAD, angina pectoris 4. LV systolic dysfunction post chemotherapy (LVEF 46%) 5. History of right MCA CVA/stroke with residual deficit 6. 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 HTN/HCVD 8. Hypercholesterolemia 9. Frequent PVC 10. Carotid disease s/p right CEA 11. Breast cancer s/p bilateral mastectomy with reconstruction 12. Acute on CKD pre-renal improving PLAN: 1. Given absence of symptoms of acute coronary syndrome, decompensated CHF or malignant arrhythmia, may proceed with endoscopy from cardiovascular standpoint without further testing 2. Held Eliquis for 2 days prior and resume once post-procedure hemostasis has been achieved 3. Continue Carvedilol 25 bid, Crestor 20 qhs, resumed Vasotec 5 bid and Aldactone 25 qd with renal recovery 4. Continue PPI, clear liquid diet, monitor Hgb and transfuse to maintain above 8 5. Holter monitor to assess arrhythmia burden and echo to reassess LV fxn as outpatient
--- NOTE | 2018-06-22 15:34 | PN ---
Progress Note (short form) - Note Progress Note: EGD / colonoscopy reports placed in procedural section of physical chart and to be scanned into [employer] Problem List - Problems (1) Coffee ground emesis Code(s): K92.0 - HEMATEMESIS
[2018-06-22] MEDS: MULTIVITAMINS (DAILY MVI) TABLET (FP) PO SCH (16:35)
[2018-06-22] MEDS: CALCIUM 500MG/VIT-D 200 UNITS COMBO TABLET (FP) PO SCH ×2 (16:35→21:29)
[2018-06-22] MEDS: DOCUSATE SODIUM 100 MG CAPSULE (FP) PO SCH ×2 (16:35→21:29)
[2018-06-22] MEDS: SPIRONOLACTONE 25 MG TABLET (FP) PO SCH (16:36)
[2018-06-22] MEDS: ACETAMINOPHEN 325 MG TABLET (FP) PO PRN (17:05)
[2018-06-22] MEDS: ROSUVASTATIN CA 20 MG TABLET (FP) PO SCH (21:30)
[2018-06-23] MEDS ORDERED: PT OWN MED DRAWER 7, Y5N ONE (09:54)
[2018-06-23] MEDS: CARVEDILOL 25 MG TABLET (FP) PO SCH (09:57)
[2018-06-23] MEDS: CALCIUM 500MG/VIT-D 200 UNITS COMBO TABLET (FP) PO SCH (09:57)
[2018-06-23] MEDS: TAMOXIFEN CITRATE 10 MG TABLET PO SCH (09:58)
[2018-06-23] MEDS: MULTIVITAMINS (DAILY MVI) TABLET (FP) PO SCH (09:58)
[2018-06-23] MEDS: ENALAPRIL MALEATE 5 MG TABLET (FP) PO SCH (09:58)
[2018-06-23] MEDS: ACETAMINOPHEN 325 MG TABLET (FP) PO PRN (09:59)
[2018-06-23] MEDS: SPIRONOLACTONE 25 MG TABLET (FP) PO SCH (09:59)
[2018-06-23] MEDS ORDERED: PANTOPRAZOLE 20 MG TABLET (FP) PO SCH (10:00)
[2018-06-23] MEDS: DOCUSATE SODIUM 100 MG CAPSULE (FP) PO SCH (10:01)
--- NOTE | 2018-06-23 13:11 | DS ---
Physical Examination Vital Signs: Vital Signs Temperature 98.2 F 06/23/18 05:25 Pulse Rate 75 06/23/18 05:25 Respiratory Rate 18 06/23/18 05:25 Blood Pressure 116/60 06/23/18 05:25 O2 Sat by Pulse Oximetry (%) 99 06/23/18 10:00 Constitutional: Yes: No Distress, Calm Cardiovascular: Yes: Pulse Irregular Respiratory: Yes: CTA Bilaterally Gastrointestinal: Yes: Normal Bowel Sounds, Soft. No: Tenderness Edema: No Labs: CBC, BMP 06/21/18 06:22 06/20/18 06:00 Discharge Summary Reason For Visit: HX OF DEEP VENOUS THROMBOSIS Current Active Problems Acute upper gastrointestinal bleeding (Acute) Anticoagulated (Acute) Coffee ground emesis (Acute) History of DVT (deep vein thrombosis) (Acute) History of coronary artery disease (Acute) History of pulmonary embolism (Acute) Hospital Course: Admitted for coffee ground emesis H/HCT Stable no further bleeding She underwent EGD and colonoscopy-- advised to take Protonix for 6 weeks. She has hiatal hernia which may be the reason why she had coffee ground emesis due to retained gastric contents pt better stable for dc to home Condition: Stable - Instructions Referrals: Shreya Best MD [Primary Care Provider] - Disposition: HOME - Home Medications Comprehensive Discharge Medication List: Ambulatory Orders Docusate Sodium 100 mg PO BID 06/03/16 Multivitamin [Poly-Vitamin] 1 each PO DAILY 06/03/16 Apixaban [Eliquis] 5 mg PO BID 08/25/17 Calcium Carb/Vitamin D3/Vit K1 [Calcium + D Soft Chewable Tab] 1 each PO BID 01/06 Tamoxifen Citrate 20 mg PO DAILY 08/25/17 Calcium 500Mg/Vit-D 200 Units [Os-Jose 500+D -] 1 tab PO BID tab 08/28/17 Carvedilol [Coreg -] 25 mg PO BID tablet 08/28/17 Enalapril Maleate [Vasotec -] 5 mg PO BID tablet 08/28/17 Rosuvastatin [Crestor -] 20 mg PO HS tablet 08/28/17 Spironolactone [Aldactone -] 25 mg PO DAILY tablet 08/28/17 Pantoprazole Sodium [Protonix -] 20 mg PO DAILY #42 tablet.ec 06/23/18
[2018-06-23 14:00] VITALS: BP 122/61; PULSE 78; TEMP 98.2
== END 2018-06-23 14:53 | disposition home or self-care (01) | DRG 813 ==
LOC: JER 11:20 → JERBED 13:47 → UNDOADMIN 13:47 → J4S 17:30
PROVIDERS: ADMIT Internal Medicine; ATTEND Internal Medicine
PROC: 0DJD8ZZ Inspection of Lower Intestinal Tract, Via Natural or Artificial Opening Endoscopic (ICD-10-PCS; 2018-06-22)
PROC: 0DJ08ZZ Inspection of Upper Intestinal Tract, Via Natural or Artificial Opening Endoscopic (ICD-10-PCS; principal; 2018-06-22 14:00)
DX: D68.32 Hemorrhagic disorder due to extrinsic circulating anticoagulants (principal); K92.2 Gastrointestinal hemorrhage, unspecified; N17.9 Acute kidney failure, unspecified; I69.354 Hemiplegia and hemiparesis following cerebral infarction affecting left non-dominant side; I25.110 Atherosclerotic heart disease of native coronary artery with unstable angina pectoris; K92.0 Hematemesis; R55 Syncope and collapse; K44.9 Diaphragmatic hernia without obstruction or gangrene; K64.8 Other hemorrhoids; K20.9 Esophagitis, unspecified; I12.9 Hypertensive chronic kidney disease with stage 1 through stage 4 chronic kidney disease, or unspecified chronic kidney disease; N18.9 Chronic kidney disease, unspecified; K21.9 Gastro-esophageal reflux disease without esophagitis; E78.00 Pure hypercholesterolemia, unspecified; Z85.3 Personal history of malignant neoplasm of breast; Z86.718 Personal history of other venous thrombosis and embolism; Z86.711 Personal history of pulmonary embolism; Z87.891 Personal history of nicotine dependence; Z79.01 Long term (current) use of anticoagulants
CPT/HCPCS: 36415; 71045-TC-FY; 74021-TC-FY; 80053; 82272; 82550; 83605; 83690; 84484; 85025; 85610; 85730; 86850; 86900; 86901; 93005; 93010; 99283-25

== ENCOUNTER 2018-10-08 12:06 | Inpatient (IN) | payer OTHER ==
--- NOTE | 2018-10-08 12:44 | PDOC ---
Attending Attestation - Resident Resident Name: Darrell Alvarenga - HPI HPI: 10/08/18 13:24 The patient is a 68 year old female, with a significant past medical history of CVA, PE/DVT (eliquis with IVC filter), breast cancer (s/p mastectomy), HTN, who presents to the emergency department complaining of left leg pain, for 3 days. The patient reports subjective fever, headache, and tongue pain. The patient reports 1 episode of vomiting, nonbilious and nonbloody. The patient denies chest pain, shortness of breath, and dizziness. The patient denies chills, diarrhea and constipation. The patient denies dysuria, frequency, urgency and hematuria. Allergies: NKDA - Medical Decision Making 10/08/18 13:24 Documentation prepared by Fara Cancino, acting as medical support specialist for Radha Das MD 10/08/18 14:29 Dr. Murphy was paged via phone service. awaiting call back 10/08/18 15:04 Dr. Murphy returned the call, patient's case was discussed with Dr. Alvarenga. <Fara Cancino - Last Filed: 10/08/18 15:04> - Physicial Exam PE: 10/08/18 16:07 GENERAL: Awake, alert, and fully oriented, in no acute distress HEAD: No signs of trauma EYES: PERRLA, EOMI, sclera anicteric, conjunctiva clear ENT: Auricles normal inspection, hearing grossly normal, nares patent, oropharynx clear without exudates. Moist mucosa NECK: Normal ROM, supple, no lymphadenopathy, JVD, or masses LUNGS: Breath sounds equal, clear to auscultation bilaterally. No wheezes, and no crackles HEART: Regular rate and rhythm, normal S1 and S2, no murmurs, rubs or gallops ABDOMEN: Soft, nontender, normoactive bowel sounds. No guarding, no rebound. No masses EXTREMITIES: +Tenderness of the LT knee and lower thigh. Normal range of motion , no edema. No clubbing or cyanosis. No cords, erythema. NEUROLOGICAL: +tongue deviation to the rt with a left sided facial droop. Cranial nerves II through XII grossly intact. Normal speech. SKIN: Warm, Dry, normal turgor, no rashes or lesions noted. - Medical Decision Making 10/08/18 16:09 Documentation prepared by Margaret Silva, acting as medical support specialist for Radha Das MD. <Margaret Silva - Last Filed: 10/08/18 16:09>
[2018-10-08] MEDS ORDERED: LACTATED RINGERS SOLUTION 1000 ML INFUS.BAG IV ONE (12:56)
--- NOTE | 2018-10-08 13:10 | PDOC ---
History of Present Illness - General Chief Complaint: Pain, Acute Stated Complaint: LEG PAIN Time Seen by Provider: 10/08/18 12:12 History Source: Patient, Care Provider Exam Limitations: No Limitations - History of Present Illness Initial Comments: Patient is a 68 y/o F w/ PMHx PE/DVT on eliqus w/ IVC filter, CKD, multiple CVAs w/ residual left-sided weakness, breast Ca s/p b/l mastectomy on Tamoxifen , HTN, p/w severe pain in the left leg x 3 days accompanied by headache, subjective fevers, "tongue pain." Reports 1 episode of NBNB vomiting during this interval. According to health aide, patient takes PM medications including eliquis inconsistenly; however she is unsure which other medications are AM vs PM. During encounter, facial droop and tongue deviation were noted; health aide who has been with patient for 8 months reports that these are new symptoms despite known chronic deficits from prior strokes. Patient denies abd pain, CP, SOB, pleuritic pain, diarrhea, urinary symptoms. ROS otherwise negative. Ond presentation is persistently hypotensive w/ MAPs 60-68 but afebrile. 10/08/18 13:03 10/08/18 13:10 10/08/18 13:38 Past History - Travel Traveled outside of the country in the last 30 days: No Close contact w/someone who was outside of country & ill: No - Past Medical History Allergies/Adverse Reactions: Allergies Allergy/AdvReac Type Severity Reaction Status Date / Time No Known Drug Allergies Allergy Verified 10/08/18 12:39 Home Medications: Ambulatory Orders Docusate Sodium 100 mg PO BID 06/03/16 Multivitamin [Poly-Vitamin] 1 each PO DAILY 06/03/16 Apixaban [Eliquis] 5 mg PO BID 08/25/17 Calcium Carb/Vitamin D3/Vit K1 [Calcium + D Soft Chewable Tab] 1 each PO BID 01/06 Tamoxifen Citrate 20 mg PO DAILY 08/25/17 Calcium 500Mg/Vit-D 200 Units [Os-Jose 500+D -] 1 tab PO BID tab 08/28/17 Carvedilol [Coreg -] 25 mg PO BID tablet 08/28/17 Enalapril Maleate [Vasotec -] 5 mg PO BID tablet 08/28/17 Rosuvastatin [Crestor -] 20 mg PO HS tablet 08/28/17 Spironolactone [Aldactone -] 25 mg PO DAILY tablet 08/28/17 Pantoprazole Sodium [Protonix -] 20 mg PO DAILY #42 tablet.ec 06/23/18 Anemia: No Asthma: No Cancer: Yes (both breast) Cardiac Disorders: Yes (cad) CVA: Yes (x3) COPD: No CHF: No Dementia: No Diabetes: Yes GI Disorders: Yes (GERD) Disorders: No HTN: Yes Hypercholesterolemia: Yes Liver Disease: No Seizures: No Thyroid Disease: No - Surgical History Abdominal Surgery: No Cardiac Surgery: Yes (card stent x2) Lung Surgery: No Orthopedic Surgery: Yes (R. Foot bunionectomy) - Immunization History Immunization Up to Date: Yes - Suicide/Smoking/Psychosocial Hx Smoking Status: No Smoking History: Never smoked Have you smoked in the past 12 months: No Number of Cigarettes Smoked Daily: 0 If you are a former smoker, when did you quit?: 6 YEARS AGO Cigars Per Day: 24 Information on smoking cessation initiated: No 'Breaking Loose' booklet given: 06/19/18 Hx Alcohol Use: No Drug/Substance Use Hx: No Substance Use Type: None Hx Substance Use Treatment: No Review of Systems - Review of Systems Comments:: As per HPI 10/08/18 13:12 *Physical Exam - Vital Signs Last Vital Signs Temp Pulse Resp BP Pulse Ox 97.6 F 65 16 86/48 L 95 10/08/18 12:10 10/08/18 12:10 10/08/18 12:10 10/08/18 12:10 10/08/18 12:10 - Physical Exam Comments: General: A&Ox3, in moderate distress HEENT: EOMI, PERRLA, left-sided facial droop, right-sided tongue deviation Neck: supple, no LAD, no JVD CV: RRR no m/r/g Respiratory: CTA b/l Abd: +bs, soft, NT, ND Extremities: 2+ pulses, wwp, severe tenderness to palpation in left popliteal region Neuro: bell staff as per above +left facial droop +right tongue deviation, 4/5 strength of LUE and LLE c/w baseline, 5/5 strength of RUE and RLE, no sensory deficit Psych: normal mood, normal affect Skin: warm, dry, normal turgor 10/08/18 13:13 Moderate Sedation - Procedure Monitoring Vital Signs: Procedure Monitoring Vital Signs Temperature 97.6 F 10/08/18 12:10 Pulse Rate 65 10/08/18 12:10 Respiratory Rate 16 10/08/18 12:10 Blood Pressure 86/48 L 10/08/18 12:10 O2 Sat by Pulse Oximetry (%) 95 10/08/18 12:10 ED Treatment Course - LABORATORY CBC & Chemistry Diagram: 10/08/18 12:59 10/08/18 12:59 - RADIOLOGY Radiology Studies Ordered: Category Date Time Status HEAD CT WITHOUT CONTRAST [CT] Stat CT Scan 10/08/18 12:55 Ordered CHEST X-RAY PORTABLE* [RAD] Stat Radiology 10/08/18 12:53 Ordered DUPLEX VASCUL US-2LEGS [US] Stat Ultrasound 10/08/18 12:54 Ordered Medical Decision Making - Medical Decision Making Based on persistent hypotension, full sepsis w/u ordered. CBC, CMP, Mg, Phos, troponins, TSH, coags, BCx, UA, UCx, CXR. Additionally, 500cc bolus LR to correct hypotension, will bolus further if BP does not respond and then consider central line if needed. Based on neurologic findings, CVA/TIA/stroke w/ u ordered including NCHCT, lipid panels, pulse ox, neuro checks. LE duplex ordered in light of L popliteal pain. 10/08/18 13:18 Initial lab w/u negative for leukocytosis. Lactate is mildly elevated at 2.5. H/ H stable. BP improved to 112/57. 10/08/18 13:59 Electrolytes nl. Creatinine elevated to 2.1 from baseline 1.4-1.5. HCT shows no acute pathology. Ordered echo. 10/08/18 14:13 *DC/Admit/Observation/Transfer Diagnosis at time of Disposition: Cranial nerve dysfunction Hypotension Qualifiers: Hypotension type: other hypotension type Qualified Code(s): I95.89 - Other hypotension - Discharge Dispostion Condition at time of disposition: Guarded Decision to Admit order: Yes - Referrals - Patient Instructions - Post Discharge Activity
[2018-10-08 13:13] LABS: BASO % 0.8 % (0-2.0); EOS % 3.2 % (0-4.5); HEMATOCRIT 35.2 % (32.4-45.2); HEMOGLOBIN 11.5 GM/dL (10.7-15.3); LYMPH % 36.9 % (8-40); MCHC 32.5 g/dl (32.0-36.0); MEAN CELL VOLUME 82.9 fl (80-96); MEAN PLT VOLUME 8.8 fl (7.5-11.1); MONO % 8.6 % (3.8-10.2); NEUT % 50.5 % (42.8-82.8); PLATELET COUNT 267 K/MM3 (134-434); RBC 4.25 M/mm3 (3.60-5.2); RDW 15.7 % (11.6-15.6); WHITE BLOOD COUNT 5.5 K/mm3 (4.0-10.0)
[2018-10-08 13:16] LABS: VENOUS PC02 54.5 mmHg (38-52); VENOUS PH 7.27 (7.32-7.42); VENOUS PO2 24.8 mmHg (28-48)
[2018-10-08 13:29] LABS: INR 1.39 (0.83-1.09); PROTHROMBIN TIME (PATIENT) 16.4 SEC (9.7-13.0)
[2018-10-08 13:31] LABS: ACTIVATED PTT 23.3 SECONDS (25.2-36.5)
[2018-10-08 14:00] LABS: ALBUMIN 3.9 g/dl (3.4-5.0); ALK PHOS 52 U/L (45-117); ANION GAP 7 MMOL/L (8-16); BILIRUBIN,TOTAL 0.4 mg/dL (0.2-1); BLOOD UREA NITROGEN 24 mg/dL (7-18); CALCIUM 9.6 mg/dL (8.5-10.1); CHLORIDE 105 mmol/L (98-107); CHOLESTEROL 197 mg/dL (50-200); CO2 27 mmol/L (21-32); CREATININE 2.1 mg/dL (0.55-1.3); GLUCOSE,RANDOM 106 mg/dL (74-106); HDL CHOLESTEROL 44 mg/dL (40-60); PHOSPHOROUS 4.2 mg/dL (2.5-4.9); SGOT/AST 20 U/L (15-37); SGPT/ALT 17 U/L (13-61); SODIUM 139 mmol/L (136-145); TOT PROT 7.1 g/dl (6.4-8.2); TRIGLYCERIDES 183 mg/dL (0-150)
[2018-10-08 14:01] LABS: POTASSIUM 4.9 mmol/L (3.5-5.1)
[2018-10-08] MEDS ORDERED: SODIUM CHLORIDE 1,000 ML IV SCH (20:15)
[2018-10-08 20:35] VITALS: BMI 27.1
[2018-10-08] MEDS: CARVEDILOL 25 MG TABLET (FP) PO SCH (22:08)
[2018-10-08] MEDS: ROSUVASTATIN CA 20 MG TABLET (FP) PO SCH (22:08)
[2018-10-08] MEDS: DOCUSATE SODIUM 100 MG CAPSULE (FP) PO SCH (22:08)
[2018-10-08] MEDS: APIXABAN 5 MG TABLET PO SCH (22:09)
[2018-10-08] MEDS: ENALAPRIL MALEATE 5 MG TABLET (FP) PO SCH (22:09)
[2018-10-09 02:18] LABS: URINE APPEARANCE CLEAR; URINE BILIRUBIN NEGATIVE (<2.0 mg/dL); URINE COLOR LTYELLOW; URINE GLUCOSE (UA) NEGATIVE (NEGATIVE); URINE KETONE NEGATIVE (NEGATIVE); URINE LEUK ESTERASE TRACE (NEGATIVE); URINE NITRITE NEGATIVE (NEGATIVE); URINE PROTEIN NEGATIVE (NEGATIVE); URINE UROBILINOGEN NEGATIVE mg/dL (0.2-1.0)
[2018-10-09 02:23] LABS: EPI CELLS FEW /HPF (FEW); URINE BACTERIA RARE /hpf (NONE SEEN); URINE HYALINE CAST 3 /lpf; URINE MUCUS RARE
[2018-10-09 07:48] LABS: HEMATOCRIT 29.3 % (32.4-45.2); HEMOGLOBIN 9.5 GM/dL (10.7-15.3); MCH 27.1 pg (25.7-33.7); MCHC 32.4 g/dl (32.0-36.0); MEAN CELL VOLUME 83.8 fl (80-96); MEAN PLT VOLUME 9.1 fl (7.5-11.1); PLATELET COUNT 197 K/MM3 (134-434); RBC 3.49 M/mm3 (3.60-5.2); RDW 15.5 % (11.6-15.6); WHITE BLOOD COUNT 5.4 K/mm3 (4.0-10.0)
[2018-10-09 08:18] LABS: INR 1.25 (0.83-1.09); PROTHROMBIN TIME (PATIENT) 14.8 SEC (9.7-13.0)
[2018-10-09 08:24] LABS: ALBUMIN 3.1 g/dl (3.4-5.0); ALK PHOS 42 U/L (45-117); ANION GAP 10 MMOL/L (8-16); BILIRUBIN,TOTAL 0.2 mg/dL (0.2-1); BLOOD UREA NITROGEN 28 mg/dL (7-18); CALCIUM 8.5 mg/dL (8.5-10.1); CHLORIDE 108 mmol/L (98-107); CO2 24 mmol/L (21-32); CREATININE 1.5 mg/dL (0.55-1.3); GLUCOSE,RANDOM 95 mg/dL (74-106); POTASSIUM 4.6 mmol/L (3.5-5.1); SGOT/AST 10 U/L (15-37); SGPT/ALT 15 U/L (13-61); SODIUM 142 mmol/L (136-145); TOT PROT 5.9 g/dl (6.4-8.2)
[2018-10-09] MEDS ORDERED: PT OWN MED DRAWER 7, Y5N ONE (09:15)
[2018-10-09] MEDS: CARVEDILOL 25 MG TABLET (FP) PO SCH ×2 (10:12→22:09)
[2018-10-09] MEDS: DOCUSATE SODIUM 100 MG CAPSULE (FP) PO SCH ×2 (10:12→22:09)
[2018-10-09] MEDS: ENALAPRIL MALEATE 5 MG TABLET (FP) PO SCH ×2 (10:12→22:09)
[2018-10-09] MEDS: TAMOXIFEN CITRATE 10 MG TABLET PO SCH (10:13)
[2018-10-09] MEDS: APIXABAN 5 MG TABLET PO SCH ×2 (10:13→22:09)
[2018-10-09] MEDS: PANTOPRAZOLE 20 MG TABLET (FP) PO SCH (10:13)
--- NOTE | 2018-10-09 10:25 | ECHO ---
Version: 1 Name: BRYSON FANG Exam: Adult Echocardiogram Study Date: 10/09/2018, 8:34 AM Age: 68 Years MMode/2D Measurements & Calculations IVSd: 0.96 cm LVIDs: 3.7 cm LVIDd: 5.8 cm LVPWd: 0.81 cm LVOT diam: 2.04 cm Ao root diam: 2.41 cm LA dimension: 4.0 cm Doppler Measurements & Calculations MV E max deepak: 46.4 cm/sec Med E/e': 14.0 MV A max deepak: 74.0 cm/sec Med Peak E' Deepak: 3.3 cm/sec MV E/A: 0.63 Lat E/e': 10.3 Lat Peak E' Deepak: 4.5 cm/sec TR max deepak: 236.5 cm/sec TR max P.4 mmHg Procedure A two-dimensional transthoracic echocardiogram with color flow and Doppler was performed in limited views only. Left Ventricle Ejection Fraction = 50-55%. Right Ventricle The right ventricle is grossly normal size. The right ventricular systolic function is grossly gavi l. Atria The left atrium is mildly dilated. Mitral Valve There is mild mitral valve thickening. There is no mitral valve stenosis. There is mild mitral regur gitation. Tricuspid Valve The tricuspid valve is normal in structure and function. There is mild tricuspid regurgitation. Aortic Valve There is mild aortic sclerosis.;. No hemodynamically significant valvular aortic stenosis. Pulmonic Valve The pulmonic valve is not well seen, but is grossly normal. Great Vessels The aortic root is not well visualized. Pericardium/Pleura There is no pericardial effusion. Summary Statements Ejection Fraction = 50-55%. The right ventricle is grossly normal size. The right ventricular systolic function is grossly normal. The left atrium is mildly dilated. There is mild mitral valve thickening. There is mild mitral regurgitation. There is mild tricuspid regurgitation. There is mild aortic sclerosis.; There is no pericardial effusion. MD Logan *Hans 10/09/2018, 10:25 AM Ordering Physician: DOMINGO VASQUEZ Performed By: Lynne Mondragon
--- NOTE | 2018-10-09 11:41 | HP ---
Admitting History and Physical - Primary Care Physician PCP: Shreya Best - Admission History of Present Illness: patient seen and examined in telemetry chart reviewed emergency room records revealed In summary----as per emergency room records Patient is a 68 y/o F w/ PMHx PE/DVT on eliqus w/ IVC filter, CKD, multiple CVAs w/ residual left-sided weakness, breast Ca s/p b/l mastectomy on Tamoxifen , HTN, p/w severe pain in the left leg x 3 days accompanied by headache, subjective fevers, "tongue pain." Reports 1 episode of NBNB vomiting during this interval. According to health aide, patient takes PM medications including eliquis inconsistenly; however she is unsure which other medications are AM vs PM. During encounter, facial droop and tongue deviation were noted; health aide who has been with patient for 8 months reports that these are new symptoms despite known chronic deficits from prior strokes. Patient denies abd pain, CP, SOB, pleuritic pain, diarrhea, urinary symptoms. ROS otherwise negative. Ond presentation is persistently hypotensive w/ MAPs 60-68 but afebrile. 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) Cardiovascular: Yes: CAD (with cardiac stenting x 2), Deep Vein Thrombosis, HTN , Hyperlipdemia Pulmonary: Yes: Pulmonary Embolus ...: No Heme/Onc: Yes: Other (DVT) - Past Surgical History Past Surgical History: Yes: Hysterectomy (ELIZABETH/BSO), Mastectomy (and lumpectomy) , Stent - Smoking History Smoking history: Former smoker Have you smoked in the past 12 months: No Aproximately how many cigarettes per day: 0 If you are a former smoker, when did you quit?: 6 YEARS AGO - Alcohol/Substance Use Hx Alcohol Use: No History of Substance Use: reports: None - Social History 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 Home Medications - Allergies Allergies/Adverse Reactions: Allergies Allergy/AdvReac Type Severity Reaction Status Date / Time No Known Drug Allergies Allergy Verified 10/08/18 12:39 - Home Medications Home Medications: Ambulatory Orders Docusate Sodium 100 mg PO BID 06/03/16 Multivitamin [Poly-Vitamin] 1 each PO DAILY 06/03/16 Apixaban [Eliquis] 5 mg PO BID 08/25/17 Calcium Carb/Vitamin D3/Vit K1 [Calcium + D Soft Chewable Tab] 1 each PO BID 01/06 Tamoxifen Citrate 20 mg PO DAILY 08/25/17 Calcium 500Mg/Vit-D 200 Units [Os-Jose 500+D -] 1 tab PO BID tab 08/28/17 Carvedilol [Coreg -] 25 mg PO BID tablet 08/28/17 Enalapril Maleate [Vasotec -] 5 mg PO BID tablet 08/28/17 Rosuvastatin [Crestor -] 20 mg PO HS tablet 08/28/17 Spironolactone [Aldactone -] 25 mg PO DAILY tablet 08/28/17 Pantoprazole Sodium [Protonix -] 20 mg PO DAILY #42 tablet.ec 06/23/18 Family Disease History - Family Disease History Family Disease History: [place]: Sister (6, alive: 1 with BCA), Other: Father ( 88: CHF), Mother (: 70's: CHF), Brother (6: : "heart problems"), Sister Review of Systems Findings/Remarks: see [place] Physical Examination Vital Signs: Vital Signs Temperature 97.8 F 10/09/18 10:00 Pulse Rate 68 10/09/18 10:00 Respiratory Rate 20 10/09/18 10:00 Blood Pressure 124/94 10/09/18 10:00 O2 Sat by Pulse Oximetry (%) 95 10/09/18 09:00 Constitutional: Yes: No Distress, Calm Eyes: Yes: Conjunctiva Clear Neck: Yes: Supple Cardiovascular: Yes: Regular Rate and Rhythm Respiratory: Yes: CTA Bilaterally Gastrointestinal: Yes: Soft Edema: No Neurological: Yes: Alert, Pre-Existing Deficit Psychiatric: Yes: Alert Labs: CBC, BMP 10/09/18 05:30 10/09/18 05:30 Imaging - Results Chest X-ray: Report Reviewed X-ray: Report Reviewed Cat Scan: Report Reviewed Problem List - Problems (1) Hypotension Code(s): I95.9 - HYPOTENSION, UNSPECIFIED Qualifiers: Hypotension type: other hypotension type Qualified Code(s): I95.89 - Other hypotension (2) [id number] kidney injury Code(s): N17.9 - ACUTE KIDNEY FAILURE, UNSPECIFIED; N18.9 - CHRONIC KIDNEY DISEASE, UNSPECIFIED Qualifiers: Acute renal failure type: unspecified Chronic kidney disease stage: unspecified stage Qualified Code(s): N17.9 - Acute kidney failure, unspecified ; N18.9 - Chronic kidney disease, unspecified; N18.9 - Chronic kidney disease, unspecified (3) Chronic anticoagulation Code(s): Z79.01 - MUD TRUCKER (CURRENT) USE OF ANTICOAGULANTS (4) Coronary artery disease Code(s): I25.10 - ATHSCL HEART DISEASE OF [place] CORONARY ARTERY W/O ANG PCTRS Qualifiers: Coronary Disease-Associated Artery/Lesion type: [place] artery [place] vs. transplanted heart: [place] heart Associated angina: without angina Qualified Code(s): I25.10 - Atherosclerotic heart disease of [place] coronary artery without angina pectoris (5) History of DVT (deep vein thrombosis) Code(s): Z86.718 - PERSONAL HISTORY OF OTHER VENOUS THROMBOSIS AND EMBOLISM Assessment/Plan clinically stable Monitor today Discontinue fluids--- patient eating well Monitor labs Physical therapy Daily out of bed to chair Follow-up cultures If stable--- consider discharge tomorrow Discussed with nursing staff also
--- NOTE | 2018-10-09 14:09 | EKG ---
Test Reason : Blood Pressure : / mmHG Vent. Rate : 057 BPM Atrial Rate : 057 BPM P-R Int : 156 ms QRS Dur : 092 ms QT Int : 454 ms P-R-T Axes : 067 019 030 degrees QTc Int : 441 ms SINUS BRADYCARDIA WITH OCCASIONAL PREMATURE VENTRICULAR COMPLEXES OTHERWISE NORMAL ECG WHEN COMPARED WITH ECG OF 08-OCT-2018 12:33, NO SIGNIFICANT CHANGE WAS FOUND Confirmed by SHWETA JACKSON, LIYA ([id number]) on 10/09/2018 2:08:53 PM Referred By: DOMINGO VASQUEZ Confirmed By:LIYA ROKC MD
--- NOTE | 2018-10-09 19:35 | CONSULT ---
Consult - text type - Consultation Consultation Note: NEUROLOGY CONSULTATION is greatly appreciated: This 68 yo RH woman lives alone with Home health aides. PMH sig for HTN, DM, Chol, ASHD, [place], Stents, TIA's, CVA's and s/p Right CEA. S/ p B/L mastectomies. H/O DVT, PE and IVC filter. Maintained on: Apixaban; Calcium Carb; Tamoxifen; Carvedilol; Enalapril; Rosuvastatin; Spironolactone; and Pantoprazole. Seen by me 10/30/17 after an amnestic period with fevers. Known to be s/p multiple strokes. Now admitted with new headaches and and Back pain radiating into the left leg ( Calf), especially with walking x [address] of head (reviewed): Moderate atrophy. Old right frontal and left temporal CVA 's. Right frontal white matter edema. Venous dopplers negative for recurrent DVT LOVELY: No evidence of head trauma. No bruits. - Krystle's. - SLR. -Patricks - cellulitis NEURO: MS normal. Speech severely dysarthric CN II-XII: Full luna and EOM's. Left central facial. Decreased tongue EDA's. depressed gag. Motor: Left drift. Left leg rests everted, left ankle internally rotated. Left hemiparesis (4/5). Brisk reflexes B/L with spread to finger flexors. Absent AJ 's. Left Babinski. Coord: Slow but no dystaxia Sensory: Reduced vibration both feet and ankles. Gait: Shuffling, flexed. L circumduction >> R. IMP: Moderate left and mild right cerebral dysfunction with B/L motor signs, dysarthria and dysphagia due to B/L CVA's. Now admitted with new left leg pain with ambulation (claudication). SUGGEST: MRI of brain (C-): r/o right frontal edema MRI of LS spine (C-): r/o LS radiculopathy. X Rays, left Tibia, fibula. Arterial dopplers for vascular etiology of claudication. Bedside PT Continue A/C with Eliqurizwana. Thank you very much, Eric Maki MD
[2018-10-09] MEDS: ROSUVASTATIN CA 20 MG TABLET (FP) PO SCH (22:09)
[2018-10-10 08:00] LABS: BASO % 1.1 % (0-2.0); HEMATOCRIT 31.9 % (32.4-45.2); HEMOGLOBIN 10.2 GM/dL (10.7-15.3); LYMPH % 41.9 % (8-40); MCH 26.9 pg (25.7-33.7); MCHC 31.9 g/dl (32.0-36.0); MEAN CELL VOLUME 84.5 fl (80-96); MEAN PLT VOLUME 8.9 fl (7.5-11.1); MONO % 8.3 % (3.8-10.2); NEUT % 44.7 % (42.8-82.8); PLATELET COUNT 220 K/MM3 (134-434); RBC 3.78 M/mm3 (3.60-5.2); RDW 15.4 % (11.6-15.6); WHITE BLOOD COUNT 5.4 K/mm3 (4.0-10.0)
[2018-10-10 08:33] LABS: ALBUMIN 3.6 g/dl (3.4-5.0); ALK PHOS 46 U/L (45-117); ANION GAP 6 MMOL/L (8-16); BILIRUBIN,TOTAL 0.3 mg/dL (0.2-1); BLOOD UREA NITROGEN 24 mg/dL (7-18); CALCIUM 9.5 mg/dL (8.5-10.1); CHLORIDE 106 mmol/L (98-107); CO2 27 mmol/L (21-32); CREATININE 1.3 mg/dL (0.55-1.3); GLUCOSE,RANDOM 92 mg/dL (74-106); POTASSIUM 4.6 mmol/L (3.5-5.1); SGOT/AST 13 U/L (15-37); SGPT/ALT 15 U/L (13-61); SODIUM 139 mmol/L (136-145); TOT PROT 6.6 g/dl (6.4-8.2)
[2018-10-10] MEDS: DOCUSATE SODIUM 100 MG CAPSULE (FP) PO SCH ×2 (10:29→22:18)
[2018-10-10] MEDS: PANTOPRAZOLE 20 MG TABLET (FP) PO SCH (10:29)
[2018-10-10] MEDS: CARVEDILOL 25 MG TABLET (FP) PO SCH ×2 (10:29→22:18)
[2018-10-10] MEDS: ENALAPRIL MALEATE 5 MG TABLET (FP) PO SCH ×2 (10:29→22:18)
[2018-10-10] MEDS: TAMOXIFEN CITRATE 10 MG TABLET PO SCH (10:30)
[2018-10-10] MEDS: APIXABAN 5 MG TABLET PO SCH ×2 (10:30→22:18)
--- NOTE | 2018-10-10 11:31 | PN ---
Progress Note (short form) - Note Progress Note: has severe pain in left hip, thigh pain on moving the left leg denies fall Vital Signs - 24 hr 10/09/18 10/09/18 10/09/18 14:00 17:10 21:00 Temperature 98.6 F 98.1 F 98.2 F Pulse Rate 80 68 72 Respiratory 20 18 20 Rate Blood Pressure 113/66 122/62 132/64 O2 Sat by Pulse Oximetry (%) 10/10/18 10/10/18 10/10/18 01:30 05:00 09:00 Temperature 97.8 F 97.7 F 98.3 F Pulse Rate 63 83 90 Respiratory 18 18 18 Rate Blood Pressure 110/57 L 137/78 115/64 O2 Sat by Pulse 95 Oximetry (%) Current Medications Generic Name Dose Route Start Last Admin Trade Name Freq PRN Reason Stop Dose Admin Apixaban 5 mg 10/08/18 22:00 10/10/18 10:30 Eliquis - PO 5 mg BID SAMANTHA Administration Carvedilol 25 mg 10/08/18 22:00 10/10/18 10:29 Coreg - PO 25 mg BID SAMANTHA Administration Docusate Sodium 100 mg 10/08/18 22:00 10/10/18 10:29 Colace - PO 100 mg BID SAMANTHA Administration Enalapril Maleate 5 mg 10/08/18 22:00 10/10/18 10:29 Vasotec - PO 5 mg BID SAMANTHA Administration Pantoprazole Sodium 20 mg 10/09/18 10:00 10/10/18 10:29 Protonix - PO 20 mg DAILY SAMANTHA Administration Rosuvastatin Calcium 20 mg 10/08/18 22:00 10/09/18 22:09 Crestor - PO 20 mg HS SAMANTHA Administration Tamoxifen Citrate 20 mg 10/09/18 10:00 10/10/18 10:30 Tamoxifen Citrate PO 20 mg DAILY SAMANTHA Administration Laboratory Results - last 24 hr 10/10/18 10/10/18 07:20 07:20 WBC 5.4 RBC 3.78 Hgb 10.2 L Hct 31.9 L MCV 84.5 MCH 26.9 MCHC 31.9 L RDW 15.4 Plt Count 220 MPV 8.9 Absolute Neuts (auto) 2.4 Neutrophils % 44.7 Lymphocytes % 41.9 H Monocytes % 8.3 Eosinophils % 4.0 Basophils % 1.1 Nucleated RBC % 0 Sodium 139 Potassium 4.6 Chloride 106 Carbon Dioxide 27 Anion Gap 6 L BUN 24 H Creatinine 1.3 Creat Clearance w eGFR 40.49 Random Glucose 92 Calcium 9.5 Total Bilirubin 0.3 AST 13 L ALT 15 Alkaline Phosphatase 46 Total Protein 6.6 Albumin 3.6 Constitutional: Yes: mild Distress, Calm Eyes: Yes: Conjunctiva Clear Neck: Yes: Supple Cardiovascular: Yes: Regular Rate and Rhythm Respiratory: Yes: CTA Bilaterally Gastrointestinal: Yes: Soft Edema: No Neurological: Yes: Alert, Pre-Existing Deficit Psychiatric: Yes: Alert tender on left hip, left upper thigh, no inguinal LNE pain on moving the left hip PLAN Neurology eval noted change to inpatient MRI brain and LS spine ordered Check arterial doppler Checkl xrays of hip and pelvis PT eval will need STR-- pt agreeable Problem List - Problems (1) Hyperlipidemia Code(s): E78.5 - HYPERLIPIDEMIA, UNSPECIFIED Qualifiers: Hyperlipidemia type: pure hypercholesterolemia Qualified Code(s): E78.00 - Pure hypercholesterolemia, unspecified; E78.0 - Pure hypercholesterolemia (2) Hypertension Code(s): I10 - ESSENTIAL (PRIMARY) HYPERTENSION Qualifiers: Hypertension type: essential hypertension Qualified Code(s): I10 - Essential (primary) hypertension (3) Low back pain Code(s): M54.5 - LOW BACK PAIN (4) Thigh pain Code(s): M79.659 - PAIN IN UNSPECIFIED THIGH (5) Weakness Code(s): R53.1 - WEAKNESS
[2018-10-10] MEDS ORDERED: traMADol HCL 50 MG TABLET PO PRN (11:32)
[2018-10-10] MEDS: BACLOFEN 10 MG TABLET (FP) PO SCH ×2 (13:39→22:18)
[2018-10-10] MEDS ORDERED: ONDANSETRON 4 MG/2 ML VIAL ONE (15:42)
[2018-10-10] MEDS ORDERED: ONDANSETRON 4 MG/2 ML VIAL IVPUSH PRN (16:33)
[2018-10-10] MEDS ORDERED: ACETAMINOPHEN 325 MG TABLET (FP) PO PRN (16:34)
[2018-10-10] MEDS: ROSUVASTATIN CA 20 MG TABLET (FP) PO SCH (22:18)
[2018-10-11] MEDS: BACLOFEN 10 MG TABLET (FP) PO SCH ×3 (06:24→21:53)
[2018-10-11] MEDS: CARVEDILOL 25 MG TABLET (FP) PO SCH ×2 (10:33→21:53)
[2018-10-11] MEDS: TAMOXIFEN CITRATE 10 MG TABLET PO SCH (10:33)
[2018-10-11] MEDS: PANTOPRAZOLE 20 MG TABLET (FP) PO SCH (10:33)
[2018-10-11] MEDS: APIXABAN 5 MG TABLET PO SCH ×2 (10:33→21:53)
[2018-10-11] MEDS: ENALAPRIL MALEATE 5 MG TABLET (FP) PO SCH ×2 (10:33→21:53)
[2018-10-11] MEDS: DOCUSATE SODIUM 100 MG CAPSULE (FP) PO SCH ×2 (10:33→21:52)
--- NOTE | 2018-10-11 11:09 | PN ---
Progress Note (short form) - Note Progress Note: patient feels better, she is ambulating in the room She had x-rays and MRI done Patient could not tolerate tramadol yesterday, made her nauseous Selected Entries 10/11/18 10:00 Temperature 97.6 F Pulse Rate 93 H Respiratory 20 Rate Blood Pressure 121/57 L Constitutional: Yes: mild Distress, Calm Eyes: Yes: Conjunctiva Clear Neck: Yes: Supple Cardiovascular: Yes: Regular Rate and Rhythm Respiratory: Yes: CTA Bilaterally Gastrointestinal: Yes: Soft Edema: No Neurological: Yes: Alert, Pre-Existing Deficit Psychiatric: Yes: Alert Patient ambulating without any distress PLAN Neurology eval noted MRI brain and LS spine ordered Check arterial doppler Check xrays of hip and pelvis PT eval reports not available Patient at this time does not want short-term rehabilitation and would like to go home Discharge planning Problem List - Problems (1) Hyperlipidemia Code(s): E78.5 - HYPERLIPIDEMIA, UNSPECIFIED Qualifiers: Hyperlipidemia type: pure hypercholesterolemia Qualified Code(s): E78.00 - Pure hypercholesterolemia, unspecified; E78.0 - Pure hypercholesterolemia (2) Hypertension Code(s): I10 - ESSENTIAL (PRIMARY) HYPERTENSION Qualifiers: Hypertension type: essential hypertension Qualified Code(s): I10 - Essential (primary) hypertension (3) Low back pain Code(s): M54.5 - LOW BACK PAIN (4) Thigh pain Code(s): M79.659 - PAIN IN UNSPECIFIED THIGH (5) Weakness Code(s): R53.1 - WEAKNESS
[2018-10-11] MEDS: ROSUVASTATIN CA 20 MG TABLET (FP) PO SCH (21:53)
[2018-10-12 05:46] VITALS: TEMP 98.1
[2018-10-12] MEDS: BACLOFEN 10 MG TABLET (FP) PO SCH ×2 (06:56→13:13)
--- NOTE | 2018-10-12 10:19 | DS ---
Physical Examination Vital Signs: Vital Signs Temperature 98.1 F 10/12/18 05:45 Pulse Rate 67 10/12/18 05:45 Respiratory Rate 20 10/12/18 05:45 Blood Pressure 135/59 L 10/12/18 05:45 O2 Sat by Pulse Oximetry (%) 95 10/11/18 20:24 Findings/Remarks: feels well wants to go home chart reviewed sitting in chair denies pain Constitutional: Yes: No Distress Neck: Yes: Supple Cardiovascular: Yes: Regular Rate and Rhythm Respiratory: Yes: CTA Bilaterally Gastrointestinal: Yes: Soft Edema: No Neurological: Yes: Alert, Pre-Existing Deficit Psychiatric: Yes: Alert Labs: CBC, BMP 10/10/18 07:20 10/10/18 07:20 Discharge Summary Reason For Visit: HYPOTENSION Current Active Problems Cranial nerve dysfunction (Acute) Hypotension (Acute) Hospital Course: admitted for leg pain/ arf/ dehydration treated with fluids u/s -ve for dvt mri brain -ok mri- LS Spine -- report pending discussed will d/c home meds reconcilled hold spirolactone for now f/u in office in one week Condition: Stable - Instructions Referrals: Shreya Best MD [Primary Care Provider] - Disposition: HOME - Home Medications Comprehensive Discharge Medication List: Ambulatory Orders Docusate Sodium 100 mg PO BID 06/03/16 Multivitamin [Poly-Vitamin] 1 each PO DAILY 06/03/16 Apixaban [Eliquis] 5 mg PO BID 08/25/17 Tamoxifen Citrate 20 mg PO DAILY 08/25/17 Calcium 500Mg/Vit-D 200 Units [Os-Jose 500+D -] 1 tab PO BID tab 08/28/17 Carvedilol [Coreg -] 25 mg PO BID tablet 08/28/17 Enalapril Maleate [Vasotec -] 5 mg PO BID tablet 08/28/17 Rosuvastatin [Crestor -] 20 mg PO HS tablet 08/28/17 Pantoprazole Sodium [Protonix -] 20 mg PO DAILY #42 tablet.ec 06/23/18 Acetaminophen [Tylenol .Regular Strength -] 650 mg PO Q6H PRN tablet 10/12/18 Baclofen [Lioresal -] 10 mg PO BID PRN #60 tablet 10/12/18
[2018-10-12] MEDS: PANTOPRAZOLE 20 MG TABLET (FP) PO SCH (10:24)
[2018-10-12] MEDS: CARVEDILOL 25 MG TABLET (FP) PO SCH (10:24)
[2018-10-12] MEDS: ENALAPRIL MALEATE 5 MG TABLET (FP) PO SCH (10:24)
[2018-10-12] MEDS: DOCUSATE SODIUM 100 MG CAPSULE (FP) PO SCH (10:24)
[2018-10-12] MEDS: APIXABAN 5 MG TABLET PO SCH (10:24)
[2018-10-12] MEDS: TAMOXIFEN CITRATE 10 MG TABLET PO SCH (10:25)
[2018-10-12 11:54] VITALS: BP 116/72; PULSE 86
--- NOTE | 2018-11-13 11:51 | EKG ---
Test Reason : Blood Pressure : / mmHG Vent. Rate : 071 BPM Atrial Rate : 071 BPM P-R Int : 138 ms QRS Dur : 088 ms QT Int : 398 ms P-R-T Axes : 056 015 031 degrees QTc Int : 432 ms SINUS RHYTHM WITH OCCASIONAL NONSPECIFIC ST ABNORMALITY WHEN COMPARED WITH ECG OF 19-JUN-2018 11:46, NO SIGNIFICANT CHANGE WAS FOUND Confirmed by DENISE ORTEGA MD ([id number]) on 11/13/2018 11:51:35 AM Referred By: Confirmed By:DENISE ORTEGA MD
== END 2018-10-12 14:40 | disposition home or self-care (01) | DRG 683 ==
LOC: JER 12:06 → JERBED 14:23 → J4W 19:04 → OBSVTOIN 10-10 11:31
PROVIDERS: ADMIT Internal Medicine; ATTEND Internal Medicine
DX: N17.9 Acute kidney failure, unspecified (principal); I69.354 Hemiplegia and hemiparesis following cerebral infarction affecting left non-dominant side; I95.1 Orthostatic hypotension; M54.5 Low back pain; I10 Essential (primary) hypertension; I25.10 Atherosclerotic heart disease of native coronary artery without angina pectoris; Z98.61 Coronary angioplasty status; E86.0 Dehydration; E78.5 Hyperlipidemia, unspecified; M79.659 Pain in unspecified thigh
CPT/HCPCS: 36415; 70450-TC; 70551-TC; 71045-TC-FY; 72148-TC; 72170-TC-FY; 73502-TC-LT-FY; 80053; 80061; 81003; 81015; 82803; 83605; 83721; 83735; 84100; 84443; 84484; 85025; 85027; 85610; 85730; 86850; 86900; 86901; 87040; 87086; 93005; 93010; 93306-TC; 93925-TC; 93970-TC; 97116-GP; 97162-GP; 99283-25; G0378; J0475; J7030

== ENCOUNTER 2018-12-03 10:31 | Emergency (ER) | payer OTHER ==
[2018-12-03] MEDS ORDERED: SODIUM CHLORIDE 500 ML IV STA (10:48)
[2018-12-03] MEDS ORDERED: ONDANSETRON 4 MG/2 ML VIAL IVPB ONE (10:48)
[2018-12-03 11:24] LABS: BASO % 1.4 % (0-2.0); EOS % 0.4 % (0-4.5); HEMATOCRIT 34.9 % (32.4-45.2); HEMOGLOBIN 11.5 GM/dL (10.7-15.3); LYMPH % 26.2 % (8-40); MCHC 32.9 g/dl (32.0-36.0); MEAN PLT VOLUME 9.7 fl (7.5-11.1); MONO % 8.4 % (3.8-10.2); NEUT % 63.6 % (42.8-82.8); PLATELET COUNT 302 K/MM3 (134-434); RBC 4.26 M/mm3 (3.60-5.2); RDW 15.2 % (11.6-15.6); WHITE BLOOD COUNT 8.8 K/mm3 (4.0-10.0)
[2018-12-03 11:28] VITALS: BMI 28.0
--- NOTE | 2018-12-03 11:28 | PDOC ---
History of Present Illness - General Chief Complaint: Coffee Ground Emesis Stated Complaint: Coffee Ground Emesis Time Seen by Provider: 12/03/18 10:49 History Source: Patient Exam Limitations: No Limitations - History of Present Illness Travel History: No Initial Comments: 68 yo F h/o PE/DVT on eliqus w/ IVC filter, CKD, multiple CVAs w/ residual left- sided weakness, breast Ca s/p b/l mastectomy on Tamoxifen, HTN p/w coffee ground emesis since last night. Patient stated that she had pork, rice, and greens for dinner and started feeling unwell around 8 pm. She then vomited dark color emesis with food content. She vomited 5 times so far. Denies chest pain, shortness of breath, abd pain, fever, chills, urinary symptom or dark stool 12/03/18 11:44 Will check H&H 12/03/18 12:46 all labs are unremarkable. Will repeat CBC in a few hours and involve executive secretary social welfare to establish visiting nurse service post discharge 12/03/18 17:10 repeat CBC is again wnl, will discharge the patient home Past History - Past Medical History Allergies/Adverse Reactions: Allergies Allergy/AdvReac Type Severity Reaction Status Date / Time No Known Drug Allergies Allergy Verified 10/08/18 12:39 Home Medications: Ambulatory Orders Apixaban [Eliquis] 5 mg PO BID 08/25/17 Carvedilol [Coreg -] 25 mg PO BID tablet 08/28/17 Enalapril Maleate [Vasotec -] 5 mg PO BID tablet 08/28/17 Rosuvastatin [Crestor -] 20 mg PO HS tablet 08/28/17 Apixaban [Eliquis] 5 mg PO BID 12/03/18 Baclofen [Lioresal -] 10 mg PO BID 12/03/18 Calcium 500Mg/Vit-D 200 Units [Os-Jose 500+D -] 1 tab PO DAILY 12/03/18 Duloxetine HCl [Cymbalta -] 20 mg PO DAILY 12/03/18 Gabapentin [Neurontin] 300 mg PO HS 12/03/18 Omeprazole 40 mg PO DAILY 12/03/18 Oxybutynin Chloride [Oxybutynin Chloride ER] 10 mg PO DAILY 12/03/18 Anemia: No Asthma: No Cancer: Yes (both breast) Cardiac Disorders: Yes (cad) CVA: Yes (x3) COPD: No CHF: No Dementia: No Diabetes: Yes GI Disorders: Yes (GERD) Disorders: No HTN: Yes Hypercholesterolemia: Yes Liver Disease: No Seizures: No Thyroid Disease: No - Surgical History Abdominal Surgery: No Cardiac Surgery: Yes (card stent x2) Lung Surgery: No Orthopedic Surgery: Yes (R. Foot bunionectomy) - Immunization History Immunization Up to Date: Yes - Suicide/Smoking/Psychosocial Hx Smoking Status: No Smoking History: Former smoker Have you smoked in the past 12 months: No Number of Cigarettes Smoked Daily: 0 If you are a former smoker, when did you quit?: 6 YEARS AGO Cigars Per Day: 24 'Breaking Loose' booklet given: 06/19/18 Hx Alcohol Use: No Drug/Substance Use Hx: No Substance Use Type: None Hx Substance Use Treatment: No Review of Systems - Review of Systems Able to Perform ROS?: Yes Constitutional: No: Chills, Fever Respiratory: No: Cough, Shortness of Breath Cardiac (ROS): No: Chest Pain, Edema ABD/GI: Yes: Nausea, Vomiting. No: Abdominal Distended, Abd. Pain w/ defecation , Diarrhea, Poor Appetite, Abdominal cramping, Tarry Stools *Physical Exam - Physical Exam Respiratory/Chest: positive: Lungs Clear, Normal Breath Sounds Cardiovascular: positive: Regular Rhythm, Regular Rate, S1, S2. negative: JVD, Murmur Gastrointestinal/Abdominal: positive: Normal Bowel Sounds, Soft. negative: Tender, Distended, Guarding, Rebound, Tenderness, Mass, Hepatomegaly Rectal Exam: positive: normal exam Extremity: negative: Pedal Edema, Swelling Neurologic: positive: Fully Oriented ED Treatment Course - LABORATORY CBC & Chemistry Diagram: 12/03/18 16:30 12/03/18 10:52 *DC/Admit/Observation/Transfer Diagnosis at time of Disposition: Coffee ground emesis - Discharge Dispostion Disposition: HOME Condition at time of disposition: Stable Decision to Admit order: No - Referrals Referrals: Shreya Best MD [Primary Care Provider] - - Patient Instructions Printed Discharge Instructions: DI for Vomiting -- Adult Additional Instructions: You were evaluated in the ER at [facility] for coffee ground emesis. All your lab works have been negative for acute upper GI bleed which could lead to ground coffee emesis. It may be related to food intake. Return to ER if you experience more episodes. Please follow up with your PMD and get a referral for GI specialist visit. - Post Discharge Activity
--- NOTE | 2018-12-03 11:59 | PDOC ---
Attending Attestation - Resident Resident Name: Zander Heredia - ED Attending Attestation I have performed the following: I have examined & evaluated the patient, The case was reviewed & discussed with the resident, I agree w/resident's findings & plan - HPI HPI: 12/03/18 11:56 68-year-old female with multiple medical problems presents with dark emesis since last night and general feeling of being unwell. Had similar admission in June 2018 with presumed coffee ground emesis, endoscopy at that time showed hiatal hernia but no gastric or duodenal lesions. The patient does take Protonix daily. Denies any associated abdominal pain, denies any other infectious or dehydration complaints, has no cardiopulmonary complaints. Daughter at bedside and states she received a distressed voice mail from her mom last night saying she was feeling very sick, arrived home from work today and brings her to the emergency department. - Physicial Exam PE: 12/03/18 11:57 Vitals as noted and within normal limits Patient is alert and conversant No jaundice or pallor left facial droop which is chronic Abdomen is soft/nontender/nondistended - Medical Decision Making 12/03/18 11:57 68-year-old female presents with dark emesis since last night, feeling generally weak. Hemodynamically stable without concerning exam findings. Check labs including troponin Chest x-ray, EKG IV fluids, antiemetics Reassess, likely admission for observation 12/03/18 12:45 HGB at/above baseline, Cr 1.7 similar to past, remaining labs wnl. trend CBC, SW consult for [employer] times, reassess if above wnl and we can address home situation, plus no further vomiting, consider d/c home given negative EGD recently Heart Score/ECG Review #1 ECG reviewed & interpreted by me at: 10:53 General ECG Interpretation: Sinus Rhythm, Normal Rate (95), Normal Intervals ( qtc 444), No acute ischemic changes (nonspecific T wave flattening laterally)
[2018-12-03 12:31] LABS: ALBUMIN 4.1 g/dl (3.4-5.0); ALK PHOS 64 U/L (45-117); ANION GAP 8 MMOL/L (8-16); BILIRUBIN,TOTAL 0.4 mg/dL (0.2-1); BLOOD UREA NITROGEN 29 mg/dL (7-18); CALCIUM 9.5 mg/dL (8.5-10.1); CHLORIDE 104 mmol/L (98-107); CO2 25 mmol/L (21-32); CREATININE 1.7 mg/dL (0.55-1.3); GLUCOSE,RANDOM 106 mg/dL (74-106); LIPASE 110 U/L (73-393); MAGNESIUM 1.9 mg/dL (1.8-2.4); POTASSIUM 4.9 mmol/L (3.5-5.1); SGOT/AST 42 U/L (15-37); SGPT/ALT 30 U/L (13-61); SODIUM 137 mmol/L (136-145); TOT PROT 7.9 g/dl (6.4-8.2)
[2018-12-03 12:41] LABS: INR 1.14 (0.83-1.09); PROTHROMBIN TIME (PATIENT) 13.5 SEC (9.7-13.0)
[2018-12-03] MEDS ORDERED: ONDANSETRON 4 MG/2 ML VIAL ONE (13:14)
--- NOTE | 2018-12-03 15:34 | EKG ---
Test Reason : Blood Pressure : / mmHG Vent. Rate : 095 BPM Atrial Rate : 095 BPM P-R Int : 134 ms QRS Dur : 098 ms QT Int : 354 ms P-R-T Axes : 063 025 050 degrees QTc Int : 444 ms NORMAL SINUS RHYTHM NORMAL ECG WHEN COMPARED WITH ECG OF 09-OCT-2018 12:23, PREMATURE VENTRICULAR COMPLEXES ARE NO LONGER PRESENT VENT. RATE HAS INCREASED BY 38 BPM Confirmed by REMI JACKSON, PIERCE ([id number]) on 12/03/2018 3:34:41 PM Referred By: Confirmed By:PIERCE KHALIL MD
[2018-12-03 16:56] LABS: HEMATOCRIT 33.9 % (32.4-45.2); HEMOGLOBIN 10.9 GM/dL (10.7-15.3); MCH 26.6 pg (25.7-33.7); MCHC 32.2 g/dl (32.0-36.0); MEAN CELL VOLUME 82.5 fl (80-96); MEAN PLT VOLUME 9.2 fl (7.5-11.1); PLATELET COUNT 240 K/MM3 (134-434); RBC 4.11 M/mm3 (3.60-5.2); RDW 15.7 % (11.6-15.6); WHITE BLOOD COUNT 7.1 K/mm3 (4.0-10.0)
[2018-12-03 19:25] VITALS: BP 138/70; PULSE 66; TEMP 97.8
== END 2018-12-03 19:23 | disposition home or self-care (01) ==
LOC: JER 10:31
DX: K92.0 Hematemesis (principal); I25.10 Atherosclerotic heart disease of native coronary artery without angina pectoris; I13.10 Hypertensive heart and chronic kidney disease without heart failure, with stage 1 through stage 4 chronic kidney disease, or unspecified chronic kidney disease; N18.9 Chronic kidney disease, unspecified; Z95.5 Presence of coronary angioplasty implant and graft; E78.00 Pure hypercholesterolemia, unspecified; I69.854 Hemiplegia and hemiparesis following other cerebrovascular disease affecting left non-dominant side; Z86.718 Personal history of other venous thrombosis and embolism; Z79.01 Long term (current) use of anticoagulants; Z86.711 Personal history of pulmonary embolism; Z85.3 Personal history of malignant neoplasm of breast; Z90.13 Acquired absence of bilateral breasts and nipples; M21.372 Foot drop, left foot
CPT/HCPCS: 36415; 71045-TC-FY; 80053; 82272; 82550; 82553; 83605; 83690; 83735; 84484; 85025; 85027; 85610; 93005; 93010; 99284-25

== ENCOUNTER 2018-12-06 14:46 | Inpatient (IN) | payer OTHER ==
--- NOTE | 2018-12-06 14:51 | PDOC ---
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 The pt reports going to sit on the toilet when she felt lightheaded and then 'slowly ' fell to the floor. She is unsure if she hit her head and endorses LOC. Endorses recent subjective fevers/chills, productive cough, sore throat. Endorses emesis multiple times this week but is unable to accurately quantify 2/ 2 memory deficiency 2/2 previous CVA. Denies MONTIEL, vision changes, chest pain, trouble breathing, abdominal pain, diarrhea, dysuria, or blood in her stool or urine. Pt lives alone with aids that come daily 12/06/18 15:13 Past History - Past Medical History Allergies/Adverse Reactions: Allergies Allergy/AdvReac Type Severity Reaction Status Date / Time No Known Drug Allergies Allergy Verified 12/06/18 14:47 Home Medications: Ambulatory Orders Apixaban [Eliquis] 5 mg PO BID 08/25/17 Carvedilol [Coreg -] 25 mg PO BID tablet 08/28/17 Enalapril Maleate [Vasotec -] 5 mg PO BID tablet 08/28/17 Rosuvastatin [Crestor -] 20 mg PO HS tablet 08/28/17 Apixaban [Eliquis] 5 mg PO BID 12/03/18 Baclofen [Lioresal -] 10 mg PO BID 12/03/18 Calcium 500Mg/Vit-D 200 Units [Os-Jose 500+D -] 1 tab PO DAILY 12/03/18 Duloxetine HCl [Cymbalta -] 20 mg PO DAILY 12/03/18 Gabapentin [Neurontin] 300 mg PO HS 12/03/18 Omeprazole 40 mg PO DAILY 12/03/18 Oxybutynin Chloride [Oxybutynin Chloride ER] 10 mg PO DAILY 12/03/18 Anemia: No Asthma: No Cancer: Yes (both breast) Cardiac Disorders: Yes (cad) CVA: Yes (x3) COPD: No CHF: No Dementia: No Diabetes: Yes GI Disorders: Yes (GERD) Disorders: No HTN: Yes Hypercholesterolemia: Yes Liver Disease: No Seizures: No Thyroid Disease: No - Surgical History Abdominal Surgery: No Cardiac Surgery: Yes (card stent x2) Lung Surgery: No Orthopedic Surgery: Yes (R. Foot bunionectomy) - Immunization History Immunization Up to Date: Yes - Suicide/Smoking/Psychosocial Hx Smoking Status: No Smoking History: Former smoker Have you smoked in the past 12 months: No Number of Cigarettes Smoked Daily: 0 If you are a former smoker, when did you quit?: 6 YEARS AGO Cigars Per Day: 24 'Breaking Loose' booklet given: 06/19/18 Hx Alcohol Use: No Drug/Substance Use Hx: No Substance Use Type: None Hx Substance Use Treatment: No Review of Systems - Review of Systems Able to Perform ROS?: Yes Comments:: GENERAL/CONSTITUTIONAL: +subjective fevers/chills HEAD, EYES, EARS, NOSE AND THROAT: No change in vision or hearing; Endorses sore throat CARDIOVASCULAR: No chest pain RESPIRATORY: +cough GASTROINTESTINAL: +N/V; Denies diarrhea GENITOURINARY: No dysuria, frequency, or change in urination MUSCULOSKELETAL: +chronic back pain and BLE pain SKIN: No rash NEUROLOGIC: No headache, vertigo, or acute change in strength/sensation ENDOCRINE: No increased thirst. No abnormal weight change HEMATOLOGIC/LYMPHATIC: +DVT/PE hx ALLERGIC/IMMUNOLOGIC: No hives or skin allergy 12/06/18 16:13 Is the patient limited Albanian proficient: No *Physical Exam - Vital Signs Vital Signs Temp Pulse Resp BP Pulse Ox 97.9 F 85 18 90/51 L 96 12/06/18 14:57 12/06/18 14:57 12/06/18 14:57 12/06/18 14:57 12/06/18 14:57 12/06/18 16:14 - Physical Exam Comments: GENERAL: Awake, alert, and oriented to person/place/time, in no acute distress HEAD: No signs of trauma, normocephalic, atraumatic EYES: PERRLA, EOMI, sclera anicteric, conjunctiva clear ENT: Hearing grossly normal, nares patent, oropharynx clear without exudates. Moist mucosa LUNGS: coarse breath sounds b/l; productive cough; speaks in full sentences on room air w/ symmetric chest rise HEART: Regular rate and rhythm, normal S1 and S2, no murmurs appreciated, peripheral pulses normal and equal bilaterally ABDOMEN: Soft, protuberant, nontender, normoactive bowel sounds. No guarding, no rebound EXTREMITIES: No BLE swelling, moves all extremities independently NEUROLOGICAL: Cranial nerves II through XII grossly intact. Normal speech, residual L hand weakness; sensation intact throughout in BUE/BLE SKIN: Warm, Dry 12/06/18 16:15 ED Treatment Course - LABORATORY CBC & Chemistry Diagram: 12/06/18 16:00 12/06/18 16:00 Medical Decision Making - Medical Decision Making The pt is a 68F w/ multiple cardiovascular and previous DVT/PE and CVA x3 who presents for evaluation s/p syncopal fall Labs sent to evaluation for ACS/sepsis Will obtain a Head CT to evaluate for bleed/injury CXR to evaluate for PNA ECG ECG w/ multiple PVCs, otherwise NSR; HR 82; QTc 495 12/06/18 16:19 Trop I neg Lytes wnl Lactate elevated at 2.5, receiving IVF No leukocytosis Mild anemia, at baseline CT head pending 12/06/18 17:01 CT performed, read pending Plan for admission for syncope 12/06/18 18:26 *DC/Admit/Observation/Transfer Diagnosis at time of Disposition: Syncope Qualifiers: Syncope type: unspecified Qualified Code(s): R55 - Syncope and collapse - Referrals Referrals: Shreya Best MD [Primary Care Provider] - - Patient Instructions - Post Discharge Activity
[2018-12-06 14:58] VITALS: BMI 28.0
[2018-12-06] MEDS ORDERED: SODIUM CHLORIDE 2,368 ML IV ONE (15:18)
--- NOTE | 2018-12-06 15:36 | EKG ---
Test Reason : Blood Pressure : / mmHG Vent. Rate : 082 BPM Atrial Rate : 082 BPM P-R Int : 140 ms QRS Dur : 092 ms QT Int : 424 ms P-R-T Axes : 068 025 047 degrees QTc Int : 495 ms SINUS RHYTHM WITH FREQUENT and consecutive PREMATURE VENTRICULAR COMPLEXES CANNOT RULE OUT ANTERIOR INFARCT , AGE UNDETERMINED ABNORMAL ECG WHEN COMPARED WITH ECG OF 03-DEC-2018 10:53, PREMATURE VENTRICULAR COMPLEXES ARE NOW PRESENT Confirmed by MD CHHAYA, TONA ([id number]) on 12/06/2018 3:35:31 PM Referred By: Confirmed By:TONA SHAVER MD
--- NOTE | 2018-12-06 16:02 | PDOC ---
Attending Attestation - HPI HPI: 12/06/18 16:05 The patient is a 68 year old female with a past medical history of HTN, CHF ( stents placed), DVT, PE, CKD, multiple syncopal episodes, and CVA with residual left sided weakness (x3) here today for evaluation of a syncopal episode. The patient reports that she passed out today when she went to sit down to have a bowel movement. She currently reports throat pain. She also notes recent vomiting and a cough productive of yellow sputum. Patient denies headache, lightheadedness. Denies fever, chills. Denies chest pain, shortness of breath. Denies nausea, vomiting, diarrhea, abdominal pain. Allergies: NKDA PCP: Shreya Best - Physicial Exam PE: 12/06/18 16:06 Vitals: Triage vital signs reviewed General Appearance: No acute distress, well nourished, well developed Throat: Posterior oropharynx without erythema, mucous membranes moist Neck: Supple; No nuchal rigidity Chest Wall: Nontender Cardiac: Regular rate and rhythm, no murmurs, no rubs, no gallops Lungs: Clear to auscultation bilateral, good air movement bilaterally Abdomen: Soft, nondistended, normal bowel sounds, nontender to palpation Extremities: Full range of motion to all extremities, no cyanosis, clubbing, or edema Skin: Warm and dry, no rashes or lesions, no rash, no petechiae Neuro: AOX3; Cranial Nerves 2-12 grossly intact, Strength intact to all extremities, Sensation intact to all extremities Psych: Normal mood, normal affect - Medical Decision Making 12/06/18 16:05 Documentation prepared by RAMOS Cool, acting as medical claims assistant for Javed Fam MD. The patient is a 68 year old female with a past medical history of HTN, CHF ( stents placed), DVT, PE, CKD, multiple syncopal episodes, and CVA with residual left sided weakness (x3) here today for evaluation of a syncopal episode. <Darrell Pepper - Last Filed: 12/06/18 16:05> - Resident Resident Name: Leonardo White - ED Attending Attestation I have performed the following: I have examined & evaluated the patient, The case was reviewed & discussed with the resident, I agree w/resident's findings & plan, Exceptions are as noted - Medical Decision Making 12/06/18 16:15 68 years old with syncopal episode today noted to be hypotensive in triage vital 's Sepsis workup initiated We'll check labs image urinalysis hydrate observe and reassess Dr. Hunter to follow up labs and reasses <Javed Fam - Last Filed: 12/06/18 16:15>
[2018-12-06 16:10] LABS: HEMATOCRIT 32.7 % (32.4-45.2); HEMOGLOBIN 10.7 GM/dL (10.7-15.3); MCH 26.9 pg (25.7-33.7); MCHC 32.6 g/dl (32.0-36.0); MEAN CELL VOLUME 82.5 fl (80-96); MEAN PLT VOLUME 8.9 fl (7.5-11.1); PLATELET COUNT 254 K/MM3 (134-434); RBC 3.96 M/mm3 (3.60-5.2); RDW 15.5 % (11.6-15.6); WHITE BLOOD COUNT 8.1 K/mm3 (4.0-10.0)
[2018-12-06 16:37] LABS: ALBUMIN 3.8 g/dl (3.4-5.0); ALK PHOS 62 U/L (45-117); ANION GAP 8 MMOL/L (8-16); BILIRUBIN,TOTAL 0.4 mg/dL (0.2-1); BLOOD UREA NITROGEN 32 mg/dL (7-18); CALCIUM 8.9 mg/dL (8.5-10.1); CHLORIDE 102 mmol/L (98-107); CO2 26 mmol/L (21-32); GLUCOSE,RANDOM 123 mg/dL (74-106); POTASSIUM 4.1 mmol/L (3.5-5.1); SGOT/AST 24 U/L (15-37); SGPT/ALT 25 U/L (13-61); SODIUM 136 mmol/L (136-145); TOT PROT 7.2 g/dl (6.4-8.2)
[2018-12-06] MEDS ORDERED: SODIUM CHLORIDE 1,000 ML IV SCH (18:45)
--- NOTE | 2018-12-06 19:07 | HP ---
CHIEF COMPLAINT: syncope PCP: Shreya Best HISTORY OF PRESENT ILLNESS: 68 year old female for evaluation of a syncopal episode. Patient told me that she fell today from bed when she was getting up however ED documentation reports she syncopized when in bathroom undergoing BM. Patient denied any pain. She complains only of throat pain. was notable for: (1) head ct (2) ekg (3) cxr Recent Travel:no PAST MEDICAL HISTORY: HTN, CHF (stents placed), DVT, PE, CKD, multiple syncopal episodes, and CVA with residual left sided weakness PAST SURGICAL HISTORY:Hysterectomy (LEIZABETH/BSO), Mastectomy (and lumpectomy), Stent Social History: Smoking: no, quit 6 years ago Alcohol: Drugs: Family History:CA: Sister (6, alive: 1 with BCA), Other: Father ( 88: CHF), Mother (: 70's: CHF), Brother (6: : "heart problems"), Sister Allergies No Known Drug Allergies Allergy (Verified 12/06/18 14:47) HOME MEDICATIONS: Home Medications Medication Instructions Recorded Apixaban [Eliquis] 5 mg PO BID 08/25/17 Carvedilol [Coreg -] 25 mg PO BID tablet 08/28/17 Enalapril Maleate [Vasotec -] 5 mg PO BID tablet 08/28/17 Rosuvastatin [Crestor -] 20 mg PO HS tablet 08/28/17 Apixaban [Eliquis] 5 mg PO BID 12/03/18 Baclofen [Lioresal -] 10 mg PO BID 12/03/18 Calcium 500Mg/Vit-D 200 Units 1 tab PO DAILY 12/03/18 [Os-Jose 500+D -] Duloxetine HCl [Cymbalta -] 20 mg PO DAILY 12/03/18 Gabapentin [Neurontin] 300 mg PO HS 12/03/18 Omeprazole 40 mg PO DAILY 12/03/18 Oxybutynin Chloride [Oxybutynin 10 mg PO DAILY 12/03/18 Chloride ER] REVIEW OF SYSTEMS CONSTITUTIONAL: Absent: fever, chills, diaphoresis, generalized weakness, malaise, loss of appetite, weight change HEENT: Absent: rhinorrhea, nasal congestion, throat pain, throat swelling, difficulty swallowing, mouth swelling, ear pain, eye pain, visual changes CARDIOVASCULAR: Absent: chest pain, syncope, palpitations, irregular heart rate, lightheadedness , peripheral edema RESPIRATORY: Absent: cough, shortness of breath, dyspnea with exertion, orthopnea, wheezing, stridor, hemoptysis GASTROINTESTINAL: Absent: abdominal pain, abdominal distension, nausea, vomiting, diarrhea, constipation, melena, hematochezia GENITOURINARY: Absent: dysuria, frequency, urgency, hesitancy, hematuria, flank pain, genital pain MUSCULOSKELETAL: Absent: myalgia, arthralgia, joint swelling, back pain, neck pain SKIN: Absent: rash, itching, pallor HEMATOLOGIC/IMMUNOLOGIC: Absent: easy bleeding, easy bruising, lymphadenopathy, frequent infections ENDOCRINE: Absent: unexplained weight gain, unexplained weight loss, heat intolerance, cold intolerance NEUROLOGIC: Absent: headache, focal weakness or paresthesias, dizziness, unsteady gait, seizure, mental status changes, present- bladder incontinence present- loc PSYCHIATRIC: Absent: anxiety, depression, suicidal or homicidal ideation, hallucinations. PHYSICAL EXAMINATION Vital Signs - 24 hr 12/06/18 12/06/18 12/06/18 14:57 15:10 15:30 Temperature 97.9 F Pulse Rate 85 Pulse Rate [ 88 84 Apical] Respiratory 18 20 22 H Rate Blood Pressure 90/51 L Blood Pressure 87/43 L 98/49 L [Right Arm] O2 Sat by Pulse 96 98 97 Oximetry (%) 12/06/18 12/06/18 16:15 18:49 Temperature Pulse Rate Pulse Rate [ 88 81 Apical] Respiratory 22 H 22 H Rate Blood Pressure Blood Pressure 113/97 111/48 L [Right Arm] O2 Sat by Pulse 96 98 Oximetry (%) GENERAL: Awake, alert, and fully oriented, in no acute distress. HEAD: Normal with no signs of trauma. EYES: Pupils equal, round and reactive to light, extraocular movements intact, sclera anicteric, conjunctiva clear. No lid lag. EARS, NOSE, THROAT: Ears normal, nares patent, oropharynx clear without exudates. Moist mucous membranes. NECK: Normal range of motion, supple without lymphadenopathy, JVD, or masses. LUNGS: Breath sounds equal, clear to auscultation bilaterally. No wheezes, and no crackles. No accessory muscle use, s/p b/l mastectomy HEART: Regular rate and rhythm, normal S1 and S2 without murmur, rub or gallop. ABDOMEN: Soft, nontender, not distended, normoactive bowel sounds, no guarding, no rebound, no masses. MUSCULOSKELETAL: Normal range of motion at all joints. No bony deformities or tenderness. No CVA tenderness. UPPER EXTREMITIES: 2+ pulses, warm, well-perfused. No cyanosis. No clubbing. No peripheral edema. LOWER EXTREMITIES: 2+ pulses, warm, well-perfused. No calf tenderness. No peripheral edema. NEUROLOGICAL: Cranial nerves II-XII intact. Normal speech. Normal gait. PSYCHIATRIC: Cooperative. Good eye contact. Appropriate mood and affect. SKIN: Warm, dry, normal turgor, no rashes or lesions noted, normal capillary refill. Laboratory Results - last 24 hr 12/06/18 12/06/18 12/06/18 16:00 16:00 16:00 WBC 8.1 RBC 3.96 Hgb 10.7 Hct 32.7 MCV 82.5 MCH 26.9 MCHC 32.6 RDW 15.5 Plt Count 254 MPV 8.9 Manual Slide Review Platelet Comment No clotting detected PTT (Actin FS) 23.5 L Sodium 136 Potassium 4.1 Chloride 102 Carbon Dioxide 26 Anion Gap 8 BUN 32 H Creatinine 2.0 H Creat Clearance w eGFR 24.63 Random Glucose 123 H Lactic Acid Calcium 8.9 Total Bilirubin 0.4 AST 24 ALT 25 Alkaline Phosphatase 62 Troponin I < 0.02 Total Protein 7.2 Albumin 3.8 12/06/18 12/06/18 16:00 18:00 WBC RBC Hgb Hct MCV MCH MCHC RDW Plt Count MPV Manual Slide Review Platelet Comment PTT (Actin FS) Sodium Potassium Chloride Carbon Dioxide Anion Gap BUN Creatinine Creat Clearance w eGFR Random Glucose Lactic Acid 2.5 H* 1.4 Calcium Total Bilirubin AST ALT Alkaline Phosphatase Troponin I Total Protein Albumin ekg reviewed- multiple pvc imaging reviewed ASSESSMENT/PLAN: #syncope/frequent falls - may have been mechanical fall vs vasovagal syncope vs orthostatic hypotension -tele observation -check orthostatics -echo -gentle IV fluid hydration -bed rest -fall precautions -physical therapy request #Lactic acidosis- now resolved s/p 2 L IVF #Throat pain- clear pharynx on exam -magic mouthwash/tylenol prn for pain #Anemia #Breast cancer s/p b/l mastectomies - pt reports she takes tamoxifen at home -c/w tamoxifen 20mg po daily #HTN/CHF -enalapril -carvedilol #CAD (stents placed) #DVT/PE -c/w apixaban 5mg po bid -monitor for signs of bleeding #CKD vs JOVAN -avoid nephrotixns -renal u/s #CVA with residual left sided weakness dvt ppx - on apixaban Visit type - Emergency Visit Emergency Visit: Yes ED Registration Date: 12/06/18 Care time: The patient presented to the Emergency Department on the above date and was hospitalized for further evaluation of their emergent condition. - New Patient This patient is new to me today: Yes Date on this admission: 12/06/18 - Critical Care Critical Care patient: No
[2018-12-06 20:20] LABS: URINE APPEARANCE CLOUDY; URINE BILIRUBIN NEGATIVE (<2.0 mg/dL); URINE COLOR YELLOW; URINE GLUCOSE (UA) NEGATIVE (NEGATIVE); URINE KETONE TRACE (NEGATIVE); URINE LEUK ESTERASE 2+ (NEGATIVE); URINE NITRITE NEGATIVE (NEGATIVE); URINE PROTEIN 2+ (NEGATIVE); URINE UROBILINOGEN NEGATIVE mg/dL (0.2-1.0)
[2018-12-06 20:40] LABS: EPI CELLS RARE /HPF (FEW); URINE HYALINE CAST 33 /lpf; URINE MUCUS RARE
[2018-12-06] MEDS ORDERED: HEPARIN NA (PORCINE) 5,000 UNITS/ML 1ML VIAL SQ SCH (22:00)
[2018-12-06] MEDS: APIXABAN 5 MG TABLET PO SCH (22:53)
[2018-12-06] MEDS: ROSUVASTATIN CA 20 MG TABLET (FP) PO SCH (22:53)
[2018-12-06] MEDS: BACLOFEN 10 MG TABLET (FP) PO SCH (22:53)
[2018-12-06] MEDS: CARVEDILOL 25 MG TABLET (FP) PO SCH (22:53)
[2018-12-06] MEDS: GABAPENTIN 300 MG CAPSULE (FP) PO SCH (22:53)
[2018-12-06] MEDS: ENALAPRIL MALEATE 5 MG TABLET (FP) PO SCH (22:54)
[2018-12-07 05:54] LABS: HEMATOCRIT 28.5 % (32.4-45.2); HEMOGLOBIN 9.2 GM/dL (10.7-15.3); MCH 26.8 pg (25.7-33.7); MCHC 32.1 g/dl (32.0-36.0); MEAN CELL VOLUME 83.4 fl (80-96); MEAN PLT VOLUME 8.8 fl (7.5-11.1); PLATELET COUNT 217 K/MM3 (134-434); RBC 3.42 M/mm3 (3.60-5.2); RDW 15.5 % (11.6-15.6); WHITE BLOOD COUNT 6.5 K/mm3 (4.0-10.0)
[2018-12-07 06:03] LABS: ALK PHOS 51 U/L (45-117); ANION GAP 5 MMOL/L (8-16); BILIRUBIN,TOTAL 0.3 mg/dL (0.2-1); BLOOD UREA NITROGEN 27 mg/dL (7-18); CHLORIDE 111 mmol/L (98-107); CO2 25 mmol/L (21-32); CREATININE 1.3 mg/dL (0.55-1.3); GLUCOSE,RANDOM 89 mg/dL (74-106); POTASSIUM 4.2 mmol/L (3.5-5.1); SGOT/AST 21 U/L (15-37); SGPT/ALT 21 U/L (13-61); SODIUM 141 mmol/L (136-145); TOT PROT 5.8 g/dl (6.4-8.2)
--- NOTE | 2018-12-07 08:13 | PN ---
Progress Note, Physician Chief Complaint: events noted patient feels weak feels dizzy, she does not remember coming into the emergency room She tells me that she is losing her memory she is unsteady was here in the emergency room recently for coffee ground emesis but discharged after second CBC was normal, stool guaiac was negative - Current Medication List Current Medications: Active Medications Acetaminophen (Tylenol -) 500 mg PO Q4H PRN PRN Reason: PAIN LEVEL 1 - 3 Apixaban (Eliquis -) 5 mg PO BID [facility] Last Admin: 12/06/18 22:53 Dose: 5 mg Baclofen (Lioresal -) 10 mg PO BID [facility] Last Admin: 12/06/18 22:53 Dose: 10 mg Carvedilol (Coreg -) 25 mg PO BID [facility] Last Admin: 12/06/18 22:53 Dose: 25 mg Duloxetine HCl (Cymbalta -) 20 mg PO DAILY [facility] Enalapril Maleate (Vasotec -) 5 mg PO BID [facility] Last Admin: 12/06/18 22:54 Dose: 5 mg Gabapentin (Neurontin -) 300 mg PO [facility] Last Admin: 12/06/18 22:53 Dose: 300 mg Lidocaine/Aluminum/Magnesium/Simeth (Magic Mouthwash *Sjr Formula* -) 5 ml MM Q6H PRN PRN Reason: MOUTH PAIN Pantoprazole Sodium (Protonix -) 40 mg PO DAILY [facility] Rosuvastatin Calcium (Crestor -) 20 mg PO HS [facility] Last Admin: 12/06/18 22:53 Dose: 20 mg - Objective Vital Signs: Vital Signs Temperature 97.8 F 12/07/18 06:20 Pulse Rate 60 12/07/18 06:20 Respiratory Rate 18 12/07/18 06:20 Blood Pressure 129/54 L 12/07/18 06:20 O2 Sat by Pulse Oximetry (%) 98 12/07/18 06:20 Constitutional: Yes: No Distress Cardiovascular: Yes: Regular Rate and Rhythm Respiratory: Yes: CTA Bilaterally Gastrointestinal: Yes: Normal Bowel Sounds, Soft. No: Tenderness Edema: No Labs: CBC, BMP 12/07/18 05:10 12/07/18 05:10 Problem List - Problems (1) Syncope Code(s): R55 - SYNCOPE AND COLLAPSE Qualifiers: Syncope type: unspecified Qualified Code(s): R55 - Syncope and collapse (2) Breast cancer Code(s): C50.919 - MALIGNANT NEOPLASM OF UNSP SITE OF UNSPECIFIED FEMALE BREAST Qualifiers: Breast location: unspecified site of breast (3) Coronary artery disease Code(s): I25.10 - ATHSCL HEART DISEASE OF [place] CORONARY ARTERY W/O ANG PCTRS Qualifiers: Coronary Disease-Associated Artery/Lesion type: [place] artery [place] vs. transplanted heart: [place] heart Associated angina: without angina Qualified Code(s): I25.10 - Atherosclerotic heart disease of [place] coronary artery without angina pectoris (4) Hyperlipidemia Code(s): E78.5 - HYPERLIPIDEMIA, UNSPECIFIED Qualifiers: Hyperlipidemia type: pure hypercholesterolemia Qualified Code(s): E78.00 - Pure hypercholesterolemia, unspecified; E78.0 - Pure hypercholesterolemia (5) Hypertension Code(s): I10 - ESSENTIAL (PRIMARY) HYPERTENSION Qualifiers: Hypertension type: essential hypertension Qualified Code(s): I10 - Essential (primary) hypertension Assessment/Plan plan IV fluids check cardiac enzymes Cardiology and neurology evaluation Fall precautions Physical therapy Check orthostasis
[2018-12-07] MEDS: ENALAPRIL MALEATE 5 MG TABLET (FP) PO SCH ×2 (09:32→21:45)
[2018-12-07] MEDS: CARVEDILOL 25 MG TABLET (FP) PO SCH ×2 (09:32→21:45)
[2018-12-07] MEDS: PANTOPRAZOLE 40 MG TABLET (FP) PO SCH (09:32)
[2018-12-07] MEDS: BACLOFEN 10 MG TABLET (FP) PO SCH ×2 (09:32→21:45)
[2018-12-07] MEDS: APIXABAN 5 MG TABLET PO SCH ×2 (09:32→21:45)
[2018-12-07] MEDS: DULoxetine HCL 20 MG CAPSULE.DR PO SCH (09:32)
[2018-12-07] MEDS: ACETAMINOPHEN 500 MG TABLET (FP) PO PRN ×3 (10:31→21:45)
[2018-12-07] MEDS: MAG HYDROX/ALH/SMC/DPHA/LIDO 240 ML MOUTHWASH MM PRN (10:31)
--- NOTE | 2018-12-07 16:48 | CON.NEURO ---
Consult - History of Present Illness History of Present Illness: 68 year old female hx of breast CA, PE/DVT and stroke in 2006 residual left sided hemiplegia , for evaluation of a syncopal episode. Patient told me that she fell today from bed when she was getting up however ED documentation reports she syncopized when in bathroom undergoing BM. Patient denied any pain. She complains only of throat pain. No hx of seizures. states HX of stroke in 2005 , at the time was in [place]--(no records available) . She has vague recollection of carotid disease but denies any prior surgery/stent etc. CT HD : chronic R MCA infarct DOPPLER IMPRESSION: Extensive atherosclerotic disease with a stenosis in the 60-79% range involving the right ICA. 2. Reversal of flow left vertebral artery. Since a prior study dated 08/26/2017, there has been little significant change. 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 Home Medications - Allergies Allergies/Adverse Reactions: Allergies Allergy/AdvReac Type Severity Reaction Status Date / Time No Known Drug Allergies Allergy Verified 12/06/18 14:47 - Home Medications Home Medications: Ambulatory Orders Apixaban [Eliquis] 5 mg PO BID 08/25/17 Carvedilol [Coreg -] 25 mg PO BID tablet 08/28/17 Enalapril Maleate [Vasotec -] 5 mg PO BID tablet 08/28/17 Rosuvastatin [Crestor -] 20 mg PO HS tablet 08/28/17 Apixaban [Eliquis] 5 mg PO BID 12/03/18 Baclofen [Lioresal -] 10 mg PO BID 12/03/18 Calcium 500Mg/Vit-D 200 Units [Os-Jose 500+D -] 1 tab PO DAILY 12/03/18 Duloxetine HCl [Cymbalta -] 20 mg PO DAILY 12/03/18 Gabapentin [Neurontin] 300 mg PO HS 12/03/18 Omeprazole 40 mg PO DAILY 12/03/18 Oxybutynin Chloride [Oxybutynin Chloride ER] 10 mg PO DAILY 12/03/18 Family Disease History - Family Disease History Family Disease History: CA: Sister (6, alive: 1 with BCA), Other: Father ( 88: CHF), Mother (: 70's: CHF), Brother (6: : "heart problems"), Sister Physical Exam-Neuro Vital Signs: Vital Signs Temperature 98.1 F 12/07/18 15:55 Pulse Rate 89 12/07/18 15:55 Respiratory Rate 24 H 12/07/18 15:55 Blood Pressure 122/73 12/07/18 15:55 O2 Sat by Pulse Oximetry (%) 95 12/07/18 14:09 Constitutional: Yes: Well Nourished Labs: CBC, BMP 12/07/18 05:10 12/07/18 05:10 - Neuro Exam Level Of Consciousness: Yes: Alert, Oriented to Person (slight dysrthria, left hemiparesis chronic , left sided brisk > Right ) Imaging - Results Cat Scan: Report Reviewed, Image Reviewed Problem List - Problems (1) Chronic ischemic right middle cerebral artery (MCA) stroke Code(s): I69.30 - UNSPECIFIED SEQUELAE OF CEREBRAL INFARCTION (2) Carotid stenosis, right Code(s): I65.21 - OCCLUSION AND STENOSIS OF RIGHT CAROTID ARTERY Assessment/Plan 68 year old female HX of breast CA , stroke x 3 , for evaluation of a syncopal episode. Patient told me that she fell today from bed when she was getting up however ED documentation reports she syncopized when in bathroom undergoing BM. Patient denied any pain. She complains only of throat pain. No hx of seizures. states HX of stroke in 2005 , at the time was in [place]--(no records available) . CT HD : chronic R MCA infarct DOPPLER IMPRESSION: Extensive atherosclerotic disease with a stenosis in the 60-79% range involving the right ICA. 2. Reversal of flow left vertebral artery. Since a prior study dated 08/26/2017, there has been little significant change. AP : Syncope likely vasovagal; no evidence of new stroke or seizure; residual left hemiparesis she does have old R MCA stroke with R stenosis moderate , which may have been symptomatic in the past-- this still may be amenable for vascular intervention electively she has seen DR ABRAMS in past and he is aware and he will follow this as an outpt can continue AC no new neurological issues thanks DR LEE
[2018-12-07] MEDS: GABAPENTIN 300 MG CAPSULE (FP) PO SCH (21:45)
[2018-12-07] MEDS: ROSUVASTATIN CA 20 MG TABLET (FP) PO SCH (21:45)
--- NOTE | 2018-12-07 22:39 | CON.CARD ---
Consult Consult Specialty:: Cardiology Referred by:: Dr. Murphy Reason for Consultation:: Cardiac evaluation - History of Present Illness History of Present Illness: Patient is a 68 year old female well known to our service with underlying history of CAD s/p PCI/DEAN to mid LAD and in-stent restenosis, angina pectoris, HTN, CVA with residual left sided weakness, breast CA s/p lumpectomy, histor of DVT and PTE post IVC filter and on DOAC (Eliquis), LV systolic dysfunction, carotid stenosis s/p CEA, hypercholesterolemia and history of vaso-vagal syncope who presents with possible syncope. Medical record states that she fell from bed and also states on ED noted that she had a syncope in the bathroom while having a bowel movement. This , she was seen to be vomiting. She complained of nausea and being ill. Denied chest pain or SOB. No fever or chills. No headache or lightheadedness. 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 Home Medications - Allergies Allergies/Adverse Reactions: Allergies Allergy/AdvReac Type Severity Reaction Status Date / Time No Known Drug Allergies Allergy Verified 12/06/18 14:47 - Home Medications Home Medications: Ambulatory Orders Apixaban [Eliquis] 5 mg PO BID 08/25/17 Carvedilol [Coreg -] 25 mg PO BID tablet 08/28/17 Enalapril Maleate [Vasotec -] 5 mg PO BID tablet 08/28/17 Rosuvastatin [Crestor -] 20 mg PO HS tablet 08/28/17 Apixaban [Eliquis] 5 mg PO BID 12/03/18 Baclofen [Lioresal -] 10 mg PO BID 12/03/18 Calcium 500Mg/Vit-D 200 Units [Os-Jose 500+D -] 1 tab PO DAILY 12/03/18 Duloxetine HCl [Cymbalta -] 20 mg PO DAILY 12/03/18 Gabapentin [Neurontin] 300 mg PO HS 12/03/18 Omeprazole 40 mg PO DAILY 12/03/18 Oxybutynin Chloride [Oxybutynin Chloride ER] 10 mg PO DAILY 12/03/18 Family Disease History - Family Disease History Family Disease History: CA: Sister (6, alive: 1 with BCA), Other: Father ( 88: CHF), Mother (: 70's: CHF), Brother (6: : "heart problems"), Sister Review of Systems - Review of Systems Constitutional: reports: Weakness. denies: Chills, Fever Cardiovascular: denies: Chest Pain, Palpitations, Shortness of Breath Respiratory: denies: Cough, Hemoptysis, Orthopnea, PND, SOB, SOB on Exertion, Wheezing Gastrointestinal: reports: Nausea, Vomiting. denies: Abdominal Pain, Diarrhea, Dysphagia, Rectal Bleeding Neurological: reports: Dizziness, Weakness. denies: Headache, Seizure, Syncope Vital Signs: Vital Signs Temperature 99.4 F 12/07/18 17:37 Pulse Rate 98 H 12/07/18 17:37 Respiratory Rate 20 12/07/18 17:37 Blood Pressure 112/49 L 12/07/18 17:37 O2 Sat by Pulse Oximetry (%) 95 12/07/18 14:09 Neck: Yes: Supple Respiratory: Yes: Diminished Gastrointestinal: Yes: Normal Bowel Sounds, Soft. No: Tenderness Cardiovascular: Yes: Regular Rate and Rhythm. No: Gallop JVD: No PMI: Non-Displaced Heart Sounds: Yes: S1, S2 Edema: No - Other Data Labs, Other Data: CBC, BMP 12/07/18 05:10 12/07/18 05:10 Troponin, BNP 12/07/18 05:10 Troponin I < 0.02 Laboratory Results - last 24 hr 12/07/18 12/07/18 05:10 05:10 WBC 6.5 RBC 3.42 L Hgb 9.2 L Hct 28.5 L MCV 83.4 MCH 26.8 MCHC 32.1 RDW 15.5 Plt Count 217 MPV 8.8 Sodium 141 Potassium 4.2 Chloride 111 H Carbon Dioxide 25 Anion Gap 5 L BUN 27 H Creatinine 1.3 Creat Clearance w eGFR 40.49 Random Glucose 89 Calcium 8.0 L Total Bilirubin 0.3 AST 21 ALT 21 Alkaline Phosphatase 51 Creatine Kinase 339 H Creatine Kinase Index 0.5 CK-MB (CK-2) 2.0 Troponin I < 0.02 Total Protein 5.8 L Albumin 3.0 L Sinus rhythm with PVCs and nonspecific T abnormality Echo: Report Reviewed (Normal LV function, LVEF 50-55%, mild MR and TR) Imaging - Results Chest X-ray: Report Reviewed Cat Scan: Report Reviewed (Head CT) Ultrasound: Report Reviewed (Carotid Doppler with 60-79% right ICA stenosis) EKG: Report Reviewed Problem List - Problems (1) Carotid stenosis, right Code(s): I65.21 - OCCLUSION AND STENOSIS OF RIGHT CAROTID ARTERY (2) Chronic ischemic right middle cerebral artery (MCA) stroke Code(s): I69.30 - UNSPECIFIED SEQUELAE OF CEREBRAL INFARCTION (3) Syncope Code(s): R55 - SYNCOPE AND COLLAPSE Qualifiers: Syncope type: unspecified Qualified Code(s): R55 - Syncope and collapse (4) [id number] kidney injury Code(s): N17.9 - ACUTE KIDNEY FAILURE, UNSPECIFIED; N18.9 - CHRONIC KIDNEY DISEASE, UNSPECIFIED Qualifiers: Acute renal failure type: unspecified Chronic kidney disease stage: unspecified stage Qualified Code(s): N17.9 - Acute kidney failure, unspecified ; N18.9 - Chronic kidney disease, unspecified; N18.9 - Chronic kidney disease, unspecified (5) Coronary artery disease Code(s): I25.10 - ATHSCL HEART DISEASE OF [place] CORONARY ARTERY W/O ANG PCTRS Qualifiers: Coronary Disease-Associated Artery/Lesion type: [place] artery [place] vs. transplanted heart: [place] heart Associated angina: without angina Qualified Code(s): I25.10 - Atherosclerotic heart disease of [place] coronary artery without angina pectoris (6) Deep vein thrombosis (DVT) of left lower extremity Code(s): I82.402 - ACUTE EMBOLISM AND THOMBOS UNSP DEEP VEINS OF L LOW EXTREM Qualifiers: Affected thrombotic vein of extremity: unspecified vein of extremity Chronicity: acute Qualified Code(s): I82.402 - Acute embolism and thrombosis of unspecified deep veins of left lower extremity (7) History of pulmonary embolism Code(s): Z86.711 - PERSONAL HISTORY OF PULMONARY EMBOLISM (8) Hyperlipidemia Code(s): E78.5 - HYPERLIPIDEMIA, UNSPECIFIED Qualifiers: Hyperlipidemia type: pure hypercholesterolemia Qualified Code(s): E78.00 - Pure hypercholesterolemia, unspecified; E78.0 - Pure hypercholesterolemia (9) Hypertension Code(s): I10 - ESSENTIAL (PRIMARY) HYPERTENSION Qualifiers: Hypertension type: essential hypertension Qualified Code(s): I10 - Essential (primary) hypertension (10) Systolic dysfunction without heart failure Code(s): I51.9 - HEART DISEASE, UNSPECIFIED Assessment/Plan 1. Mechanical fall vs. syncope 2. CAD s/p PCI/DEAN, angina pectoris 3. HTN 4. Hypercholesterolemia 5. History of breast CA s/p lumpectomy 6. Previous history of syncope 7. History of DVT and PTE PLAN: 1. Monitor on telemetry 2. If continues to have nausea and vomiting, may consider use of Zofran 3. Continue Carvedilol and Enalapril 4. Continue Eliquis 5. Continue Rosuvastatin 6. PPI 7. Neuro input noted Further plans are to follow Mitchel Moeller MD
[2018-12-08] MEDS: ACETAMINOPHEN 500 MG TABLET (FP) PO PRN ×4 (03:15→21:32)
[2018-12-08] MEDS: MAG HYDROX/ALH/SMC/DPHA/LIDO 240 ML MOUTHWASH MM PRN ×2 (06:37→16:56)
[2018-12-08] MEDS ORDERED: PT OWN MED DRAWER 7, Y5N ONE (09:25)
[2018-12-08] MEDS: PANTOPRAZOLE 40 MG TABLET (FP) PO SCH (09:28)
[2018-12-08] MEDS: APIXABAN 5 MG TABLET PO SCH ×2 (09:28→21:28)
[2018-12-08] MEDS: BACLOFEN 10 MG TABLET (FP) PO SCH ×2 (09:28→21:28)
[2018-12-08] MEDS: DULoxetine HCL 20 MG CAPSULE.DR PO SCH (09:28)
[2018-12-08] MEDS: ENALAPRIL MALEATE 5 MG TABLET (FP) PO SCH ×2 (09:28→21:29)
[2018-12-08] MEDS: CARVEDILOL 25 MG TABLET (FP) PO SCH ×2 (09:28→21:28)
[2018-12-08] MEDS ORDERED: ONDANSETRON *ODT* 4 MG TABLET SL PRN (11:27)
--- NOTE | 2018-12-08 11:31 | PN ---
Progress Note (short form) - Note Progress Note: Dizzy has throat pain no chest pain or SOB Vital Signs - 24 hr 12/07/18 12/07/18 12/07/18 14:09 15:55 17:37 Temperature 98.4 F 98.1 F 99.4 F Pulse Rate 89 98 H Pulse Rate [ 83 Apical] Respiratory 16 24 H 20 Rate Blood Pressure 122/73 112/49 L Blood Pressure 124/57 L [Right Arm] O2 Sat by Pulse 95 Oximetry (%) 12/07/18 12/07/18 12/08/18 20:50 21:00 01:00 Temperature 97.8 F 97.8 F Pulse Rate 68 71 Pulse Rate [ Apical] Respiratory 20 20 Rate Blood Pressure 111/62 111/70 Blood Pressure [Right Arm] O2 Sat by Pulse 96 Oximetry (%) Current Medications Generic Name Dose Route Start Last Admin Trade Name Freq PRN Reason Stop Dose Admin Acetaminophen 500 mg 12/06/18 19:55 12/08/18 03:15 Tylenol - PO 500 mg Q4H PRN Administration PAIN LEVEL 1 - 3 Apixaban 5 mg 12/06/18 22:00 12/08/18 09:28 Eliquis - PO 5 mg BID SAMANTHA Administration Baclofen 10 mg 12/06/18 22:00 12/08/18 09:28 Lioresal - PO 10 mg BID SAMANTHA Administration Carvedilol 25 mg 12/06/18 22:00 12/08/18 09:28 Coreg - PO 25 mg BID SAMANTHA Administration Duloxetine HCl 20 mg 12/07/18 10:00 12/08/18 09:28 Cymbalta - PO 20 mg DAILY SAMANTHA Administration Enalapril Maleate 5 mg 12/06/18 22:00 12/08/18 09:28 Vasotec - PO 5 mg BID SAMANTHA Administration Gabapentin 300 mg 12/06/18 22:00 12/07/18 21:45 Neurontin - PO 300 mg HS SAMANTHA Administration Lidocaine/Aluminum/Magnesium/Simeth 5 ml 12/06/18 19:54 12/08/18 06:37 Magic Mouthwash *Sjr Formula* - MM 5 ml Q6H PRN Administration MOUTH PAIN Ondansetron HCl 4 mg 12/08/18 11:27 Zofran Odt - SL Q8H PRN NAUSEA AND/OR VOMITING Pantoprazole Sodium 40 mg 12/07/18 10:00 12/08/18 09:28 Protonix - PO 40 mg DAILY SAMANTHA Administration Rosuvastatin Calcium 20 mg 12/06/18 22:00 12/07/18 21:45 Crestor - PO 20 mg HS SAMANTHA Administration Laboratory Results - last 24 hr 12/07/18 12/08/18 05:10 05:30 Sodium 141 Potassium 4.2 Chloride 111 H Carbon Dioxide 25 Anion Gap 5 L BUN 27 H Creatinine 1.3 Creat Clearance w eGFR 40.49 Random Glucose 89 Calcium 8.0 L Total Bilirubin 0.3 AST 21 ALT 21 Alkaline Phosphatase 51 Creatine Kinase 339 H Creatine Kinase Index 0.5 CK-MB (CK-2) 2.0 Troponin I < 0.02 Total Protein 5.8 L Albumin 3.0 L TSH 0.44 Free T4 1.10 S1 S2 RRR Lungs decreased Abd- soft, NT No edema PLAN continue with meds no orthostasis Cardiology and Neurology eval appreciated will consult vascular surgeon with regards to right ICA stenosis fall precautions check labs plan for snf on discharge Problem List - Problems (1) Syncope Code(s): R55 - SYNCOPE AND COLLAPSE Qualifiers: Syncope type: unspecified Qualified Code(s): R55 - Syncope and collapse (2) Breast cancer Code(s): C50.919 - MALIGNANT NEOPLASM OF UNSP SITE OF UNSPECIFIED FEMALE BREAST Qualifiers: Breast location: unspecified site of breast (3) Coronary artery disease Code(s): I25.10 - ATHSCL HEART DISEASE OF [place] CORONARY ARTERY W/O ANG PCTRS Qualifiers: Coronary Disease-Associated Artery/Lesion type: [place] artery [place] vs. transplanted heart: [place] heart Associated angina: without angina Qualified Code(s): I25.10 - Atherosclerotic heart disease of [place] coronary artery without angina pectoris (4) Hyperlipidemia Code(s): E78.5 - HYPERLIPIDEMIA, UNSPECIFIED Qualifiers: Hyperlipidemia type: pure hypercholesterolemia Qualified Code(s): E78.00 - Pure hypercholesterolemia, unspecified; E78.0 - Pure hypercholesterolemia (5) Hypertension Code(s): I10 - ESSENTIAL (PRIMARY) HYPERTENSION Qualifiers: Hypertension type: essential hypertension Qualified Code(s): I10 - Essential (primary) hypertension
--- NOTE | 2018-12-08 12:00 | CONSULT ---
Consult - History of Present Illness History of Present Illness: 68 year old woman with history of carotid artery stenosis and stroke in 2016 with left arm weakness. She was admitted after a syncopal event. She denies any new lateralizing symptoms. - History Source History Provided By: Patient, Medical Record - Past Medical History DIRECTOR OF HEALTH EDUCATION: Yes: CVA (? 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 Home Medications - Allergies Allergies/Adverse Reactions: Allergies Allergy/AdvReac Type Severity Reaction Status Date / Time No Known Drug Allergies Allergy Verified 12/06/18 14:47 - Home Medications Home Medications: Ambulatory Orders Apixaban [Eliquis] 5 mg PO BID 08/25/17 Carvedilol [Coreg -] 25 mg PO BID tablet 08/28/17 Enalapril Maleate [Vasotec -] 5 mg PO BID tablet 08/28/17 Rosuvastatin [Crestor -] 20 mg PO HS tablet 08/28/17 Apixaban [Eliquis] 5 mg PO BID 12/03/18 Baclofen [Lioresal -] 10 mg PO BID 12/03/18 Calcium 500Mg/Vit-D 200 Units [Os-Jose 500+D -] 1 tab PO DAILY 12/03/18 Duloxetine HCl [Cymbalta -] 20 mg PO DAILY 12/03/18 Gabapentin [Neurontin] 300 mg PO HS 12/03/18 Omeprazole 40 mg PO DAILY 12/03/18 Oxybutynin Chloride [Oxybutynin Chloride ER] 10 mg PO DAILY 12/03/18 Family Disease History - Family Disease History Family Disease History: CA: Sister (6, alive: 1 with BCA), Other: Father ( 88: CHF), Mother (: 70's: CHF), Brother (6: : "heart problems"), Sister Physical Exam Vital Signs: Vital Signs Temperature 97.8 F 12/08/18 01:00 Pulse Rate 71 12/08/18 01:00 Respiratory Rate 20 12/08/18 01:00 Blood Pressure 111/70 12/08/18 01:00 O2 Sat by Pulse Oximetry (%) 96 12/07/18 21:00 Constitutional: Yes: No Distress Eyes: Yes: EOM Intact HENT: Yes: WNL Neck: Yes: WNL, Supple Cardiovascular: Yes: Pulse Irregular Respiratory: Yes: Regular Gastrointestinal: Yes: Soft ...Motor Strength: LUE (paresis) Labs: CBC, BMP 12/07/18 05:10 12/07/18 05:10 Imaging - Results Ultrasound: Image Reviewed (Calcified plaque in both common carotid and ICA. No evidence of high-grade stenosis. Left vertebral flow reversal.) Problem List - Problems (1) Subclavian steal syndrome Assessment/Plan: Vertebral artery flow reversal suggests subclavian steal. Whether this is a cause of the recent syncopal episode is unknown. Will check bilateral BP to look for gradient. Code(s): G45.8 - OTH TRANSIENT CEREBRAL ISCHEMIC ATTACKS AND RELATED SYND (2) Carotid stenosis, right Assessment/Plan: Chronic carotid artery plaques with stenosis, difficult to be sure of degree with current study. If possible, CTA would be helpful. There is decreased GFR which may improve with hydration. Code(s): I65.21 - OCCLUSION AND STENOSIS OF RIGHT CAROTID ARTERY
--- NOTE | 2018-12-08 12:28 | PN ---
Progress Note, Physician Chief Complaint: Feels better today History of Present Illness: Patient was seen and examined. Awake and alert. Chart was reviewed Denies chest pain, SOB or palpitations - Current Medication List Current Medications: Active Medications Acetaminophen (Tylenol -) 500 mg PO Q4H PRN PRN Reason: PAIN LEVEL 1 - 3 Last Admin: 12/08/18 11:32 Dose: 500 mg Apixaban (Eliquis -) 5 mg PO BID [facility] Last Admin: 12/08/18 09:28 Dose: 5 mg Baclofen (Lioresal -) 10 mg PO BID [facility] Last Admin: 12/08/18 09:28 Dose: 10 mg Carvedilol (Coreg -) 25 mg PO BID [facility] Last Admin: 12/08/18 09:28 Dose: 25 mg Duloxetine HCl (Cymbalta -) 20 mg PO DAILY [facility] Last Admin: 12/08/18 09:28 Dose: 20 mg Enalapril Maleate (Vasotec -) 5 mg PO BID [facility] Last Admin: 12/08/18 09:28 Dose: 5 mg Gabapentin (Neurontin -) 300 mg PO [facility] Last Admin: 12/07/18 21:45 Dose: 300 mg Sodium Chloride (1/2 Normal Saline) 1,000 mls @ 60 mls/hr IV ASDIR [facility] Lidocaine/Aluminum/Magnesium/Simeth (Magic Mouthwash *Sjr Formula* -) 5 ml MM Q6H PRN PRN Reason: MOUTH PAIN Last Admin: 12/08/18 06:37 Dose: 5 ml Ondansetron HCl (Zofran Odt -) 4 mg SL Q8H PRN PRN Reason: NAUSEA AND/OR VOMITING Pantoprazole Sodium (Protonix -) 40 mg PO DAILY [facility] Last Admin: 12/08/18 09:28 Dose: 40 mg Rosuvastatin Calcium (Crestor -) 20 mg PO [facility] Last Admin: 12/07/18 21:45 Dose: 20 mg - Objective Vital Signs: Vital Signs Temperature 97.8 F 12/08/18 01:00 Pulse Rate 71 12/08/18 01:00 Respiratory Rate 20 12/08/18 01:00 Blood Pressure 111/70 12/08/18 01:00 O2 Sat by Pulse Oximetry (%) 96 12/07/18 21:00 Eyes: Yes: PERRL HENT: Yes: Atraumatic Neck: Yes: Supple Cardiovascular: Yes: Regular Rate and Rhythm, S1, S2 Respiratory: Yes: CTA Bilaterally Gastrointestinal: Yes: Normal Bowel Sounds, Soft Edema: No Additional Findings/Remarks: - Review of Systems Constitutional: reports: Weakness. denies: Chills, Fever Cardiovascular: denies: Chest Pain, Palpitations, Shortness of Breath Respiratory: denies: Cough, Hemoptysis, Orthopnea, PND, SOB, SOB on Exertion, Wheezing Gastrointestinal: reports: Nausea, Vomiting. denies: Abdominal Pain, Diarrhea, Dysphagia, Rectal Bleeding Neurological: reports: Dizziness, Weakness. 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 Code(s): I69.30 - UNSPECIFIED SEQUELAE OF CEREBRAL INFARCTION (3) Syncope Code(s): R55 - SYNCOPE AND COLLAPSE Qualifiers: Syncope type: unspecified Qualified Code(s): R55 - Syncope and collapse (4) [id number] kidney injury Code(s): N17.9 - ACUTE KIDNEY FAILURE, UNSPECIFIED; N18.9 - CHRONIC KIDNEY DISEASE, UNSPECIFIED Qualifiers: Acute renal failure type: unspecified Chronic kidney disease stage: unspecified stage Qualified Code(s): N17.9 - Acute kidney failure, unspecified ; N18.9 - Chronic kidney disease, unspecified; N18.9 - Chronic kidney disease, unspecified (5) Coronary artery disease Code(s): I25.10 - ATHSCL HEART DISEASE OF [place] CORONARY ARTERY W/O ANG PCTRS Qualifiers: Coronary Disease-Associated Artery/Lesion type: [place] artery [place] vs. transplanted heart: [place] heart Associated angina: without angina Qualified Code(s): I25.10 - Atherosclerotic heart disease of [place] coronary artery without angina pectoris (6) Deep vein thrombosis (DVT) of left lower extremity Code(s): I82.402 - ACUTE EMBOLISM AND THOMBOS UNSP DEEP VEINS OF L LOW EXTREM Qualifiers: Affected thrombotic vein of extremity: unspecified vein of extremity Chronicity: acute Qualified Code(s): I82.402 - Acute embolism and thrombosis of unspecified deep veins of left lower extremity (7) History of pulmonary embolism Code(s): Z86.711 - PERSONAL HISTORY OF PULMONARY EMBOLISM (8) Hyperlipidemia Code(s): E78.5 - HYPERLIPIDEMIA, UNSPECIFIED Qualifiers: Hyperlipidemia type: pure hypercholesterolemia Qualified Code(s): E78.00 - Pure hypercholesterolemia, unspecified; E78.0 - Pure hypercholesterolemia (9) Hypertension Code(s): I10 - ESSENTIAL (PRIMARY) HYPERTENSION Qualifiers: Hypertension type: essential hypertension Qualified Code(s): I10 - Essential (primary) hypertension (10) Systolic dysfunction without heart failure Code(s): I51.9 - HEART DISEASE, UNSPECIFIED Assessment/Plan 1. Mechanical fall vs. syncope 2. CAD s/p PCI/DEAN, angina pectoris 3. HTN 4. Hypercholesterolemia 5. History of breast CA s/p lumpectomy 6. Previous history of syncope 7. History of DVT and PTE PLAN: 1. Monitor on telemetry 2. Vascular surgery input noted 3. Continue Carvedilol and Enalapril 4. Continue Eliquis 5. Continue Rosuvastatin 6. PPI Further plans are to follow Mitchel Moeller MD
[2018-12-08] MEDS: SODIUM CHLORIDE 0.45% 1,000 ML IV SCH (14:56)
[2018-12-08] MEDS ORDERED: SODIUM CHLORIDE 0.45% 1,000 ML IV SCH (19:00)
[2018-12-08] MEDS: ROSUVASTATIN CA 20 MG TABLET (FP) PO SCH (21:28)
[2018-12-08] MEDS: GABAPENTIN 300 MG CAPSULE (FP) PO SCH (21:29)
[2018-12-09 06:31] LABS: BASO % 0.7 % (0-2.0); EOS % 3.3 % (0-4.5); HEMATOCRIT 28.3 % (32.4-45.2); HEMOGLOBIN 9.1 GM/dL (10.7-15.3); LYMPH % 43.2 % (8-40); MCH 26.4 pg (25.7-33.7); MCHC 32.1 g/dl (32.0-36.0); MEAN CELL VOLUME 82.4 fl (80-96); MEAN PLT VOLUME 8.6 fl (7.5-11.1); MONO % 11.4 % (3.8-10.2); NEUT % 41.4 % (42.8-82.8); PLATELET COUNT 246 K/MM3 (134-434); RBC 3.43 M/mm3 (3.60-5.2); RDW 15.4 % (11.6-15.6)
[2018-12-09] MEDS ORDERED: PT OWN MED DRAWER 7, Y5N ONE ×2 (06:39→11:08)
[2018-12-09 07:31] LABS: ALBUMIN 2.7 g/dl (3.4-5.0); ALK PHOS 49 U/L (45-117); ANION GAP 6 MMOL/L (8-16); BILIRUBIN,TOTAL 0.4 mg/dL (0.2-1); BLOOD UREA NITROGEN 19 mg/dL (7-18); CALCIUM 8.4 mg/dL (8.5-10.1); CHLORIDE 111 mmol/L (98-107); CO2 23 mmol/L (21-32); CREATININE 1.2 mg/dL (0.55-1.3); GLUCOSE,RANDOM 92 mg/dL (74-106); POTASSIUM 4.1 mmol/L (3.5-5.1); SGOT/AST 13 U/L (15-37); SGPT/ALT 19 U/L (13-61); SODIUM 140 mmol/L (136-145); TOT PROT 5.7 g/dl (6.4-8.2)
[2018-12-09] MEDS: CARVEDILOL 25 MG TABLET (FP) PO SCH ×2 (10:13→21:58)
[2018-12-09] MEDS: APIXABAN 5 MG TABLET PO SCH ×2 (10:14→21:58)
[2018-12-09] MEDS: DULoxetine HCL 20 MG CAPSULE.DR PO SCH (10:14)
[2018-12-09] MEDS: BACLOFEN 10 MG TABLET (FP) PO SCH ×2 (10:15→21:59)
[2018-12-09] MEDS: PANTOPRAZOLE 40 MG TABLET (FP) PO SCH (10:15)
[2018-12-09] MEDS: ENALAPRIL MALEATE 5 MG TABLET (FP) PO SCH ×2 (10:16→21:59)
--- NOTE | 2018-12-09 11:13 | PN ---
Progress Note (short form) - Note Progress Note: no dizziness today feels well has throat pain no chest pain or SOB Vital Signs - 24 hr 12/08/18 12/08/18 12/08/18 14:00 18:00 21:00 Temperature 99.2 F 98.0 F Pulse Rate 65 78 Respiratory 20 16 18 Rate Blood Pressure 100/60 106/58 L O2 Sat by Pulse 98 Oximetry (%) 12/08/18 12/09/18 12/09/18 22:00 01:39 06:00 Temperature 98.8 F 98.5 F 98.3 F Pulse Rate 64 82 74 Respiratory 18 18 18 Rate Blood Pressure 139/54 L 137/67 100/55 L O2 Sat by Pulse Oximetry (%) 12/09/18 12/09/18 08:42 09:03 Temperature 98.1 F 98.1 F Pulse Rate 86 86 Respiratory 18 18 Rate Blood Pressure 70/38 L 118/64 O2 Sat by Pulse Oximetry (%) Current Medications Generic Name Dose Route Start Last Admin Trade Name Freq PRN Reason Stop Dose Admin Acetaminophen 500 mg 12/06/18 19:55 12/08/18 21:32 Tylenol - PO 500 mg Q4H PRN Administration PAIN LEVEL 1 - 3 Apixaban 5 mg 12/06/18 22:00 12/08/18 21:28 Eliquis - PO 5 mg BID SAMANTHA Administration Baclofen 10 mg 12/06/18 22:00 12/08/18 21:28 Lioresal - PO 10 mg BID SAMANTHA Administration Carvedilol 25 mg 12/06/18 22:00 12/08/18 21:28 Coreg - PO 25 mg BID SAMANTHA Administration Duloxetine HCl 20 mg 12/07/18 10:00 12/08/18 09:28 Cymbalta - PO 20 mg DAILY SAMANTHA Administration Enalapril Maleate 5 mg 12/06/18 22:00 12/08/18 21:29 Vasotec - PO 5 mg BID SAMANTHA Administration Gabapentin 300 mg 12/06/18 22:00 12/08/18 21:29 Neurontin - PO 300 mg HS SAMANTHA Administration Sodium Chloride 1,000 mls @ 60 mls/hr 12/08/18 12:15 12/08/18 14:56 1/2 Normal Saline IV 60 mls/hr ASDIR SAMANTHA Administration Lidocaine/Aluminum/Magnesium/Simeth 5 ml 12/06/18 19:54 12/08/18 16:56 Magic Mouthwash *Sjr Formula* - MM 5 ml Q6H PRN Administration MOUTH PAIN Ondansetron HCl 4 mg 12/08/18 11:27 Zofran Odt - SL Q8H PRN NAUSEA AND/OR VOMITING Pantoprazole Sodium 40 mg 12/07/18 10:00 12/08/18 09:28 Protonix - PO 40 mg DAILY SAMANTHA Administration Rosuvastatin Calcium 20 mg 12/06/18 22:00 12/08/18 21:28 Crestor - PO 20 mg HS SAMANTHA Administration Laboratory Results - last 24 hr 12/09/18 12/09/18 05:30 05:30 WBC 6.0 RBC 3.43 L Hgb 9.1 L Hct 28.3 L MCV 82.4 MCH 26.4 MCHC 32.1 RDW 15.4 Plt Count 246 MPV 8.6 Absolute Neuts (auto) 2.5 Neutrophils % 41.4 L D Lymphocytes % 43.2 H D Monocytes % 11.4 H Eosinophils % 3.3 D Basophils % 0.7 Nucleated RBC % 0 Sodium 140 Potassium 4.1 Chloride 111 H Carbon Dioxide 23 Anion Gap 6 L BUN 19 H Creatinine 1.2 Creat Clearance w eGFR 44.41 Random Glucose 92 Calcium 8.4 L Total Bilirubin 0.4 AST 13 L ALT 19 Alkaline Phosphatase 49 Total Protein 5.7 L Albumin 2.7 L no Cervical lne no erythema in pharynx S1 S2 RRR Lungs decreased Abd- soft, NT No edema PLAN continue with meds no orthostasis BP readings are significantly different both arms Vascular surgery eval noted-- CTA neck ordered iv fluids fall precautions Problem List - Problems (1) Syncope Code(s): R55 - SYNCOPE AND COLLAPSE Qualifiers: Syncope type: unspecified Qualified Code(s): R55 - Syncope and collapse (2) Breast cancer Code(s): C50.919 - MALIGNANT NEOPLASM OF UNSP SITE OF UNSPECIFIED FEMALE BREAST Qualifiers: Breast location: unspecified site of breast (3) Coronary artery disease Code(s): I25.10 - ATHSCL HEART DISEASE OF [place] CORONARY ARTERY W/O ANG PCTRS Qualifiers: Coronary Disease-Associated Artery/Lesion type: [place] artery [place] vs. transplanted heart: [place] heart Associated angina: without angina Qualified Code(s): I25.10 - Atherosclerotic heart disease of [place] coronary artery without angina pectoris (4) Hyperlipidemia Code(s): E78.5 - HYPERLIPIDEMIA, UNSPECIFIED Qualifiers: Hyperlipidemia type: pure hypercholesterolemia Qualified Code(s): E78.00 - Pure hypercholesterolemia, unspecified; E78.0 - Pure hypercholesterolemia (5) Hypertension Code(s): I10 - ESSENTIAL (PRIMARY) HYPERTENSION Qualifiers: Hypertension type: essential hypertension Qualified Code(s): I10 - Essential (primary) hypertension
[2018-12-09] MEDS: SODIUM CHLORIDE 0.45% 1,000 ML IV SCH ×2 (11:25→12:15)
[2018-12-09] MEDS: ACETAMINOPHEN 500 MG TABLET (FP) PO PRN ×2 (11:56→22:08)
[2018-12-09] MEDS: BENZOCAINE/MENTH/CETYLPYRD CL 1 EACH LOZENGE MM PRN ×2 (11:58→22:12)
--- NOTE | 2018-12-09 15:12 | PN ---
Progress Note, Physician History of Present Illness: No further near or true syncope. No events on telemetry. Left subclavian stenosis discussed with Dr. Rodríguez who plans for stent placement and cerebral angiogram as outpatient. - Current Medication List Current Medications: Active Medications Acetaminophen (Tylenol -) 500 mg PO Q4H PRN PRN Reason: PAIN LEVEL 1 - 3 Last Admin: 12/09/18 11:56 Dose: 500 mg Apixaban (Eliquis -) 5 mg PO BID [facility] Last Admin: 12/09/18 10:14 Dose: 5 mg Baclofen (Lioresal -) 10 mg PO BID [facility] Last Admin: 12/09/18 10:15 Dose: 10 mg Benzocaine/Menthol (Cepacol Lozenge -) 1 each MM PRN PRN PRN Reason: SORE THROAT Last Admin: 12/09/18 11:58 Dose: 1 each Carvedilol (Coreg -) 25 mg PO BID [facility] Last Admin: 12/09/18 10:13 Dose: 25 mg Duloxetine HCl (Cymbalta -) 20 mg PO DAILY [facility] Last Admin: 12/09/18 10:14 Dose: 20 mg Enalapril Maleate (Vasotec -) 5 mg PO BID [facility] Last Admin: 12/09/18 10:16 Dose: 5 mg Gabapentin (Neurontin -) 300 mg PO HS [facility] Last Admin: 12/08/18 21:29 Dose: 300 mg Sodium Chloride (1/2 Normal Saline) 1,000 mls @ 60 mls/hr IV ASDIR [facility] Last Admin: 12/09/18 12:15 Dose: Not Given Lidocaine/Aluminum/Magnesium/Simeth (Magic Mouthwash *Sjr Formula* -) 5 ml MM Q6H PRN PRN Reason: MOUTH PAIN Last Admin: 12/08/18 16:56 Dose: 5 ml Ondansetron HCl (Zofran Odt -) 4 mg SL Q8H PRN PRN Reason: NAUSEA AND/OR VOMITING Pantoprazole Sodium (Protonix -) 40 mg PO DAILY [facility] Last Admin: 12/09/18 10:15 Dose: 40 mg Rosuvastatin Calcium (Crestor -) 20 mg PO HS [facility] Last Admin: 12/08/18 21:28 Dose: 20 mg - Objective Vital Signs: Vital Signs Temperature 98.2 F 12/09/18 14:05 Pulse Rate 63 12/09/18 14:05 Respiratory Rate 19 12/09/18 14:05 Blood Pressure 118/54 L 12/09/18 14:05 O2 Sat by Pulse Oximetry (%) 98 12/08/18 21:00 Constitutional: Yes: No Distress, Calm Neck: Yes: Supple Cardiovascular: Yes: Regular Rate and Rhythm Respiratory: Yes: Regular, Diminished Gastrointestinal: Yes: Normal Bowel Sounds, Soft Edema: No Labs: CBC, BMP 12/09/18 05:30 12/09/18 05:30 - ....Imaging EKG: Report Reviewed (Tele: No sig pauses) Problem List - Problems (1) Carotid stenosis, right Code(s): I65.21 - OCCLUSION AND STENOSIS OF RIGHT CAROTID ARTERY (2) Subclavian steal syndrome Code(s): G45.8 - OTH TRANSIENT CEREBRAL ISCHEMIC ATTACKS AND RELATED SYND (3) Syncope Code(s): R55 - SYNCOPE AND COLLAPSE Qualifiers: Syncope type: unspecified Qualified Code(s): R55 - Syncope and collapse (4) Chronic anticoagulation Code(s): Z79.01 - NURSING HOME (CURRENT) USE OF ANTICOAGULANTS (5) Hyperlipidemia Code(s): E78.5 - HYPERLIPIDEMIA, UNSPECIFIED Qualifiers: Hyperlipidemia type: pure hypercholesterolemia Qualified Code(s): E78.00 - Pure hypercholesterolemia, unspecified; E78.0 - Pure hypercholesterolemia (6) Hypertension Code(s): I10 - ESSENTIAL (PRIMARY) HYPERTENSION Qualifiers: Hypertension type: essential hypertension Qualified Code(s): I10 - Essential (primary) hypertension (7) S/P coronary artery stent placement Code(s): Z95.5 - PRESENCE OF CORONARY ANGIOPLASTY IMPLANT AND GRAFT (8) Systolic dysfunction without heart failure Code(s): I51.9 - HEART DISEASE, UNSPECIFIED (9) Subclavian artery stenosis, left Code(s): I77.1 - STRICTURE OF ARTERY Assessment/Plan 1. Mechanical fall vs. syncope 2. CAD s/p PCI/DEAN, angina pectoris 3. HTN 4. Hypercholesterolemia 5. History of breast CA s/p lumpectomy 6. Previous history of syncope 7. History of DVT and PTE 8. Left subclavian steal suspect plan for stent 9. Right carotid stenosis plan for angiogram PLAN: 1. Monitor on telemetry, no events thus far 2. Vascular surgery input noted 3. Continue Carvedilol 25 bid and Enalapril 5 bid 4. Continue Eliquis 5 bid, hold 2 days prior to procedure and resume once post- op hemostasis achieved 5. Continue Rosuvastatin 20 qhs 6. PPI
--- NOTE | 2018-12-09 17:57 | PN ---
Progress Note (short form) - Note Progress Note: No new complaints BP 40 mm Hg lower in left arm. Exam unchanged CTA (unread) poor quality study shows severe calcific disease of the aortic arch with plaque at origin of left Subclavian artery. Carotids are tortuous but bifurcation not well visualized on either side. She will need cerebral angiogram and stenting of left subclavian. I will schedule this as outpatient. Problem List - Problems (1) Subclavian steal syndrome Code(s): G45.8 - OTH TRANSIENT CEREBRAL ISCHEMIC ATTACKS AND RELATED SYND (2) Carotid stenosis, right Code(s): I65.21 - OCCLUSION AND STENOSIS OF RIGHT CAROTID ARTERY
[2018-12-09] MEDS: ROSUVASTATIN CA 20 MG TABLET (FP) PO SCH (21:58)
[2018-12-09] MEDS: GABAPENTIN 300 MG CAPSULE (FP) PO SCH (21:59)
[2018-12-10] MEDS: ACETAMINOPHEN 500 MG TABLET (FP) PO PRN (06:03)
[2018-12-10 08:00] LABS: ANION GAP 7 MMOL/L (8-16); BLOOD UREA NITROGEN 14 mg/dL (7-18); CALCIUM 8.4 mg/dL (8.5-10.1); CHLORIDE 110 mmol/L (98-107); CO2 24 mmol/L (21-32); CREATININE 1.1 mg/dL (0.55-1.3); GLUCOSE,RANDOM 83 mg/dL (74-106); POTASSIUM 4.1 mmol/L (3.5-5.1); SODIUM 142 mmol/L (136-145)
[2018-12-10] MEDS ORDERED: PT OWN MED DRAWER 7, Y5N ONE (09:17)
[2018-12-10] MEDS: PANTOPRAZOLE 40 MG TABLET (FP) PO SCH (10:15)
[2018-12-10] MEDS: APIXABAN 5 MG TABLET PO SCH (10:15)
[2018-12-10] MEDS: CARVEDILOL 25 MG TABLET (FP) PO SCH (10:15)
[2018-12-10] MEDS: ENALAPRIL MALEATE 5 MG TABLET (FP) PO SCH (10:15)
[2018-12-10] MEDS: DULoxetine HCL 20 MG CAPSULE.DR PO SCH (10:15)
[2018-12-10] MEDS: BACLOFEN 10 MG TABLET (FP) PO SCH (10:15)
--- NOTE | 2018-12-10 10:38 | PN ---
Progress Note, Physician History of Present Illness: No further near or true syncope. No events on telemetry. Left subclavian stenosis discussed with Dr. Rodríguez who plans for stent placement and cerebral angiogram as outpatient. - Current Medication List Current Medications: Active Medications Acetaminophen (Tylenol -) 500 mg PO Q4H PRN PRN Reason: PAIN LEVEL 1 - 3 Last Admin: 12/10/18 06:03 Dose: 500 mg Apixaban (Eliquis -) 5 mg PO BID [facility] Last Admin: 12/10/18 10:15 Dose: 5 mg Baclofen (Lioresal -) 10 mg PO BID [facility] Last Admin: 12/10/18 10:15 Dose: 10 mg Benzocaine/Menthol (Cepacol Lozenge -) 1 each MM PRN PRN PRN Reason: SORE THROAT Last Admin: 12/09/18 22:12 Dose: 1 each Carvedilol (Coreg -) 25 mg PO BID [facility] Last Admin: 12/10/18 10:15 Dose: 25 mg Duloxetine HCl (Cymbalta -) 20 mg PO DAILY [facility] Last Admin: 12/10/18 10:15 Dose: 20 mg Enalapril Maleate (Vasotec -) 5 mg PO BID [facility] Last Admin: 12/10/18 10:15 Dose: 5 mg Gabapentin (Neurontin -) 300 mg PO HS [facility] Last Admin: 12/09/18 21:59 Dose: 300 mg Sodium Chloride (1/2 Normal Saline) 1,000 mls @ 60 mls/hr IV ASDIR [facility] Last Admin: 12/09/18 12:15 Dose: Not Given Lidocaine/Aluminum/Magnesium/Simeth (Magic Mouthwash *Sjr Formula* -) 5 ml MM Q6H PRN PRN Reason: MOUTH PAIN Last Admin: 12/08/18 16:56 Dose: 5 ml Ondansetron HCl (Zofran Odt -) 4 mg SL Q8H PRN PRN Reason: NAUSEA AND/OR VOMITING Pantoprazole Sodium (Protonix -) 40 mg PO DAILY [facility] Last Admin: 12/10/18 10:15 Dose: 40 mg Rosuvastatin Calcium (Crestor -) 20 mg PO HS [facility] Last Admin: 12/09/18 21:58 Dose: 20 mg - Objective Vital Signs: Vital Signs Temperature 98.1 F 12/10/18 06:00 Pulse Rate 54 L 12/10/18 06:00 Respiratory Rate 18 12/10/18 06:00 Blood Pressure 136/71 12/10/18 06:00 O2 Sat by Pulse Oximetry (%) 96 12/09/18 21:00 Constitutional: Yes: No Distress, Calm Neck: Yes: Supple Cardiovascular: Yes: Regular Rate and Rhythm Respiratory: Yes: Regular, CTA Bilaterally Gastrointestinal: Yes: Normal Bowel Sounds, Soft Edema: No Labs: CBC, BMP 12/09/18 05:30 12/10/18 06:48 - ....Imaging EKG: Report Reviewed (Tele: NSR occ [facility]) Problem List - Problems (1) Carotid stenosis, right Code(s): I65.21 - OCCLUSION AND STENOSIS OF RIGHT CAROTID ARTERY (2) Subclavian steal syndrome Code(s): G45.8 - OTH TRANSIENT CEREBRAL ISCHEMIC ATTACKS AND RELATED SYND (3) Syncope Code(s): R55 - SYNCOPE AND COLLAPSE Qualifiers: Syncope type: unspecified Qualified Code(s): R55 - Syncope and collapse (4) Chronic anticoagulation Code(s): Z79.01 - SH[facility] (CURRENT) USE OF ANTICOAGULANTS (5) Hyperlipidemia Code(s): E78.5 - HYPERLIPIDEMIA, UNSPECIFIED Qualifiers: Hyperlipidemia type: pure hypercholesterolemia Qualified Code(s): E78.00 - Pure hypercholesterolemia, unspecified; E78.0 - Pure hypercholesterolemia (6) Hypertension Code(s): I10 - ESSENTIAL (PRIMARY) HYPERTENSION Qualifiers: Hypertension type: essential hypertension Qualified Code(s): I10 - Essential (primary) hypertension (7) S/P coronary artery stent placement Code(s): Z95.5 - PRESENCE OF CORONARY ANGIOPLASTY IMPLANT AND GRAFT (8) Systolic dysfunction without heart failure Code(s): I51.9 - HEART DISEASE, UNSPECIFIED (9) Subclavian artery stenosis, left Code(s): I77.1 - STRICTURE OF ARTERY Assessment/Plan 1. Mechanical fall vs. syncope 2. CAD s/p PCI/DEAN, angina pectoris 3. HTN 4. Hypercholesterolemia 5. History of breast CA s/p lumpectomy 6. Previous history of syncope 7. History of DVT and PTE 8. Left subclavian steal suspect plan for stent as outpatient 9. Right carotid stenosis plan for angiogram PLAN: 1. No events on telemetry thus far 2. Vascular surgery input noted 3. Continue Carvedilol 25 bid and Enalapril 5 bid 4. Continue Eliquis 5 bid with PPI, hold 2 days prior to procedure and resume once post-op hemostasis achieved 5. Continue Rosuvastatin 20 qhs 6. Patient may be d/everardo to SNF with outpatient f/u
[2018-12-10 11:09] VITALS: BP 114/53; PULSE 75; TEMP 98.6
--- NOTE | 2018-12-10 13:14 | DS ---
Physical Examination Vital Signs: Vital Signs Temperature 98.6 F 12/10/18 10:00 Pulse Rate 75 12/10/18 10:00 Respiratory Rate 18 12/10/18 10:00 Blood Pressure 114/53 L 12/10/18 10:00 O2 Sat by Pulse Oximetry (%) 96 12/10/18 09:00 Constitutional: Yes: No Distress, Calm Cardiovascular: Yes: Regular Rate and Rhythm Respiratory: Yes: CTA Bilaterally Gastrointestinal: Yes: Normal Bowel Sounds, Soft. 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 Carotids are tortuous but bifurcation not well visualized on either side. PLAN --She will need cerebral angiogram and stenting of left subclavian. to be done outpt She is stable for discharge to SNF Condition: Good - Instructions Disposition: [facility]USTODIAL FACILITY - Home Medications Comprehensive Discharge Medication List: Ambulatory Orders Apixaban [Eliquis] 5 mg PO BID 08/25/17 Carvedilol [Coreg -] 25 mg PO BID tablet 08/28/17 Enalapril Maleate [Vasotec -] 5 mg PO BID tablet 08/28/17 Rosuvastatin [Crestor -] 20 mg PO HS tablet 08/28/17 Apixaban [Eliquis] 5 mg PO BID 12/03/18 Baclofen [Lioresal -] 10 mg PO BID 12/03/18 Calcium 500Mg/Vit-D 200 Units [Os-Jose 500+D -] 1 tab PO DAILY 12/03/18 Duloxetine HCl [Cymbalta -] 20 mg PO DAILY 12/03/18 Gabapentin [Neurontin] 300 mg PO HS 12/03/18 Omeprazole 40 mg PO DAILY 12/03/18 Oxybutynin Chloride [Oxybutynin Chloride ER] 10 mg PO DAILY 12/03/18
== END 2018-12-10 15:01 | DRG 69 ==
LOC: SUPCPDRO 14:46 → JER 14:46 → JERBED 18:32 → OBSVTOIN 12-07 10:00 → J4W 12-07 15:44
PROVIDERS: ADMIT Internal Medicine; ATTEND Internal Medicine
DX: G45.8 Other transient cerebral ischemic attacks and related syndromes (principal); G81.94 Hemiplegia, unspecified affecting left nondominant side; E87.2 Acidosis; N17.9 Acute kidney failure, unspecified; I13.0 Hypertensive heart and chronic kidney disease with heart failure and stage 1 through stage 4 chronic kidney disease, or unspecified chronic kidney disease; I69.30 Unspecified sequelae of cerebral infarction; R55 Syncope and collapse; I25.10 Atherosclerotic heart disease of native coronary artery without angina pectoris; K21.9 Gastro-esophageal reflux disease without esophagitis; E78.00 Pure hypercholesterolemia, unspecified; N18.9 Chronic kidney disease, unspecified; D64.9 Anemia, unspecified; I65.21 Occlusion and stenosis of right carotid artery; I77.1 Stricture of artery; Z95.5 Presence of coronary angioplasty implant and graft; Z87.891 Personal history of nicotine dependence; Z86.718 Personal history of other venous thrombosis and embolism; Z86.711 Personal history of pulmonary embolism; Z85.3 Personal history of malignant neoplasm of breast
CPT/HCPCS: 36415; 70450-TC; 70498-TC; 71045-TC-FY; 80048; 80053; 81003; 81015; 82550; 82553; 83605; 84439; 84443; 84484; 85025; 85027; 85730; 87040; 87070; 87077; 87880; 93005; 93010; 93880-TC; 97116-GP; 97161-GP; 99285-25; G0378; J0475; J7030

== ENCOUNTER 2019-01-12 09:49 | Inpatient (IN) | payer OTHER ==
--- NOTE | 2019-01-12 10:18 | PDOC ---
Attending Attestation - Resident Resident Name: Rasheeda Lofton - ED Attending Attestation I have performed the following: I have examined & evaluated the patient, The case was reviewed & discussed with the resident, I agree w/resident's findings & plan, Exceptions are as noted - HPI HPI: 01/12/19 10:19 68 F with h/o breast CA, PE/DVT and stroke in 2006 residual left sided hemiplegia presenting to ED with AMS. 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 They are unable to confirm a last known normal, though it was likely yesterday. Upon EMS arrival, pt was reportedly awake, alert , oriented to self only. En route, pt had sudden decompensation, becoming non- verbal. In ED, pt able to answer yes or no questions but AnOx0. Pt unable to contribute any additional history but endorses current chest pain and abdominal pain. - Physicial Exam PE: 01/12/19 10:22 GENERAL: Awake, alert, in no acute distress. HEAD: No signs of trauma EYES: PERRLA, EOMI, sclera anicteric, conjunctiva clear ENT: Auricles normal inspection, hearing grossly normal, nares patent, oropharynx clear without exudates. Moist mucosa NECK: Nontender, no stepoffs, Normal ROM, supple, no lymphadenopathy, JVD, or masses LUNGS: Breath sounds equal, clear to auscultation bilaterally. No wheezes, and no crackles HEART: Regular rate and rhythm, normal S1 and S2, no murmurs, rubs or gallops ABDOMEN: + diffuse TTP, normoactive bowel sounds. No guarding, no rebound. No masses EXTREMITIES: + diminished radial pulse LUE, Normal range of motion, no edema. No clubbing or cyanosis. No cords, erythema, or tenderness NEUROLOGICAL: + L hemiplegia, + dysarthria and aphasia SKIN: Warm, Dry, normal turgor, no rashes or lesions noted. - Critical Care Time Total Critical Care Time: 120 Critical Care Statement: The care of this patient involved high complexity decision making to prevent further life threatening deterioration of the patient 's condition and/or to evaluate & treat vital organ system(s) failure or risk of failure. - Medical Decision Making 01/12/19 10:26 68 F with AMS. Pt with NIHSS 14 in ED but unknown last normal. Vitals notable for hypertension and bradycardia. Will r/o ICH. Code pedroza activated. Exam notable for unequal radial pulses (?chronic). Given pt's chest pain, will need to r/o dissection. - Labs - CT head - Likely CTA to r/o dissection 01/12/19 10:37 CT head negative for ICH Pt reassessed upon returning from CT, now with significant improvement. Pt now AnOx3, though with no recollection of why she is in the hospital. Pt denies any complaints currently but does endorse having chest pain earlier Possible TIA. Will also evaluate for toxic/metabolic derangement. Given earlier chest pain and HTN with unequal pulses, will obtain CTA. NIH Stroke Scale - Last Known Well Date/Time & Onset Date Last Known Well: 01/11/19 - Initial Evaluation Level of consciousness: Alert Ask patient the month and their age: Both incorrect Ask patient to open & close eyes; make fist and let go: Obeys one correctly Best gaze (horizontal eye movement): Normal Visual field testing: No visual field loss Facial paresis (Show teeth/raise eyebrows/close eyes tight): Minor paralysis ( flattened nasolabial fold, asymmetry on smiling) Motor Function: Left Arm: Drift Motor Function: Right Arm: Normal (extends arm 90 (or 45) degrees for 10 seconds without drift Motor Function: Left Leg: No movement Motor Function: Right Leg: Some effort against gravity Limb Ataxia: No ataxia Sensory(Use pinprick test arms,legs,trunk,face/side to side): Normal Best language (Describe picture, name items, read sentences): Mild to moderate aphasia Dysarthria (read several words): Near unintelligible or unable to speak Extinction and Inattention: No abnormality - Total Score NIH Stroke Scale Score: 14
--- NOTE | 2019-01-12 10:46 | PDOC ---
History of Present Illness - General Stated Complaint: PAIN Time Seen by Provider: 01/12/19 10:01 - History of Present Illness Initial Comments: The pt is a 68F w/ a history of HTN, CAD s/p DEAN, CVA x3 w/ residual L hand weakness, s/p lumpectomy for breast cancer, DVT/PE s/p IVC filter/Eliquis, HFrEF (50-55), frequent PVC, carotid stenosis s/p R CEA, and multiple episodes of syncope who presents with confusion. Recently discharged from [facility] on 01/08/19. Her home health aide observed the confusion and called EMS. EMS on route says patient acutely decompensation, and became AAOx1. Daryl pedroza called upon arrival. When asked if she has any pain, patient pointed to her epigastrium. When asked if she has chest pain, she reported she did this morning , then later said she did not have chest pain at all today (likely confused). Patient unable to contribute otherwise to history. PCP: Shreya Best tPA Exclusion checklist 3-4.5h - Time Elapsed Date last known well: 01/11/19 Time last known well: 22:00 Elaspsed time: Day(s) and 19 Hour(s) and 33 Minutes - Thrombolytic Therapy Candidate Is patient eligible for thrombolytic therapy: No - Exclusion Criteria 3-4.5 hr SBP greater than 185 or DBP greater than 110mmHg despite tx: Yes Recent IC/spinal surgery,head trauma or stroke<3mos.: No Hx IC hemorrhage, IC neoplasm, AV malformation or aneurysm: No Active internal bleeding: No Blding diathesis(low plt ct, inc PTT,INR>1.7 or use of NOAC): No Symptoms suggest subarachnoid hemorrhage: No CT demonstrates multilobar infarct(>1/3 cerebral hemiphere): No Arterial puncture at noncompressible site in previous 7 days: No Blood glucose concentration less than 50mg/dL (2.7mmol/L): No - Relative Exclusion Criteria 3-4.5 hr Life expectancy <1 yr or severe co-morbid illness: No : No Patient/family refused: No Rapid improvement: Yes Recent acute CO (w/in previous 3 months): No Seizure at onset with postictal residual neuro impairments: No Major surgery or serious trauma w/in previous 14 days: No Recent GI or hemorrhage (w/in previous 21 days): No - Add'l Relative Exclusion 3-4.5 hr Age > 80: No Taking an oral anticoagulant regardless of INR: Yes NIHSS >25: No - Ineligibility reason(s) Reasons No tPA given: Outside of window - delayed arrival, See reason(s) noted above NIH Stroke Scale - Initial Evaluation Level of consciousness: Alert Ask patient the month and their age: Answers both correctly Ask patient to open & close eyes; make fist and let go: Obeys both correctly Best gaze (horizontal eye movement): Normal Visual field testing: No visual field loss Facial paresis (Show teeth/raise eyebrows/close eyes tight): Partial paralysis ( total or near paralysis of lower face) Motor Function: Left Arm: Drift Motor Function: Right Arm: Drift Motor Function: Left Leg: No effort against gravity Motor Function: Right Leg: Normal (extends leg 30 degrees for 5 seconds without drift) Limb Ataxia: Present in one limb Sensory(Use pinprick test arms,legs,trunk,face/side to side): Normal Best language (Describe picture, name items, read sentences): Mild to moderate aphasia Dysarthria (read several words): Mild to moderate slurring of words Extinction and Inattention: No abnormality - Total Score NIH Stroke Scale Score: 10 Past History - Past Medical History Allergies/Adverse Reactions: Allergies Allergy/AdvReac Type Severity Reaction Status Date / Time No Known Drug Allergies Allergy Verified 12/06/18 14:47 Home Medications: Ambulatory Orders Apixaban [Eliquis] 5 mg PO BID 08/25/17 Carvedilol [Coreg -] 25 mg PO BID tablet 08/28/17 Enalapril Maleate [Vasotec -] 5 mg PO BID tablet 08/28/17 Rosuvastatin [Crestor -] 20 mg PO HS tablet 08/28/17 Apixaban [Eliquis] 5 mg PO BID 12/03/18 Baclofen [Lioresal -] 10 mg PO BID 12/03/18 Calcium 500Mg/Vit-D 200 Units [Os-Jose 500+D -] 1 tab PO DAILY 12/03/18 Duloxetine HCl [Cymbalta -] 20 mg PO DAILY 12/03/18 Gabapentin [Neurontin] 300 mg PO HS 12/03/18 Omeprazole 40 mg PO DAILY 12/03/18 Oxybutynin Chloride [Oxybutynin Chloride ER] 10 mg PO DAILY 12/03/18 Benzocaine/Menthol [Cepacol Sore Throat Lozenge] 1 each PO DAILY PRN #30 lozenge 12/10/18 Anemia: No Asthma: No Cancer: Yes (both breast) Cardiac Disorders: Yes (cad) CVA: Yes (x3) COPD: No CHF: No Dementia: No Diabetes: Yes GI Disorders: Yes (GERD) Disorders: No HTN: Yes Hypercholesterolemia: Yes Liver Disease: No Seizures: No Thyroid Disease: No - Surgical History Abdominal Surgery: No Cardiac Surgery: Yes (card stent x2) Lung Surgery: No Orthopedic Surgery: Yes (R. Foot bunionectomy) - Immunization History Immunization Up to Date: Yes - Suicide/Smoking/Psychosocial Hx Smoking Status: No Smoking History: Never smoked Have you smoked in the past 12 months: No Number of Cigarettes Smoked Daily: 0 If you are a former smoker, when did you quit?: 6 YEARS AGO Cigars Per Day: 24 Information on smoking cessation initiated: No 'Breaking Loose' booklet given: 06/19/18 Hx Alcohol Use: No Drug/Substance Use Hx: No Substance Use Type: None Hx Substance Use Treatment: No Review of Systems - Review of Systems Able to Perform ROS?: No (confused) *Physical Exam - Vital Signs Last Vital Signs Temp Pulse Resp BP Pulse Ox 98.6 F 49 L 18 210/110 H 97 01/12/19 10:14 01/12/19 10:14 01/12/19 10:14 01/12/19 10:14 01/12/19 10:14 - Physical Exam Comments: General: Awake, alert, following some commands Head: No signs of trauma Eyes: EOMI, sclera anicteric ENT: Moist mucus membranes Neck: Normal ROM, supple Lungs: Lungs clear, Normal breath sounds Cardio: Regular rhythm, S1 and S2 present Abdomen: Soft, nontender. No guarding, no rebound, no masses Extremities: Normal range of motion, Distal pulses present SKIN: Warm, Dry, normal turgor Neurologic: Please see NIHSS ED Treatment Course - LABORATORY CBC & Chemistry Diagram: 01/12/19 10:36 01/12/19 10:36 - ADDITIONAL ORDERS Additional order review: Laboratory Results 01/12/19 10:02 POC Glucometer 93 01/12/19 10:02 POC Glucometer 93 Medical Decision Making - Medical Decision Making The pt is a 68F w/ a history of HTN, CAD s/p DEAN, CVA x3 w/ residual L hand weakness, s/p lumpectomy for breast cancer, DVT/PE s/p IVC filter/Eliquis, HFrEF (50-55), frequent PVC, carotid stenosis s/p R CEA, and multiple episodes of syncope who presents with confusion. DDX including but not limited to CVA/TIA, brain bleed, aortic dissection, recrudescence of prior stroke due to underlying infection, electrolyte abnormality Code Pedroza (stroke) called overhead Head CT negative: "CT scan of the brain without intravenous contrast Compared to prior CT scan of the head dated 12/06/2018 There remains moderate volume loss , ventricular dilatation and periventricular chronic microvascular ischemic disease changes. Previously visualized low-attenuation density/ encephalomalacia in the right periventricular white matter is again seen. No mass lesion, gross acute or acute intracranial hemorrhage are identified. There is no shift of the midline structures. The craniocervical junction appears unremarkable. Visualized paranasal sinuses and mastoid air cells are well aerated. Calcification of the cavernous carotid arteries are present. Both orbits appear unremarkable. The calvarium is intact IMPRESSION: No significant interval change. Moderate atrophy and chronic microvascular ischemic disease changes. Focal encephalomalacia in the right periventricular white matter, right frontal lobe again seen. No gross acute infarct is identified. Correlate clinically to determine further evaluation and follow-up." CBC WBC 7.4 K/mm3 (4.0-10.0) 01/12/19 10:36 RBC 3.42 M/mm3 (3.60-5.2) L 01/12/19 10:36 Hgb 8.8 GM/dL (10.7-15.3) L 01/12/19 10:36 Hct 28.2 % (32.4-45.2) L 01/12/19 10:36 MCV 82.6 fl (80-96) 01/12/19 10:36 MCH 25.7 pg (25.7-33.7) 01/12/19 10:36 MCHC 31.1 g/dl (32.0-36.0) L 01/12/19 10:36 RDW 16.1 % (11.6-15.6) H 01/12/19 10:36 Plt Count 285 K/MM3 (134-434) 01/12/19 10:36 MPV 8.5 fl (7.5-11.1) 01/12/19 10:36 Absolute Neuts (auto) 3.9 K/mm3 (1.5-8.0) 01/12/19 10:36 Neutrophils % 52.4 % (42.8-82.8) D 01/12/19 10:36 Lymphocytes % 36.4 % (8-40) 01/12/19 10:36 Monocytes % 8.7 % (3.8-10.2) 01/12/19 10:36 Eosinophils % 1.6 % (0-4.5) 01/12/19 10:36 Basophils % 0.9 % (0-2.0) 01/12/19 10:36 Nucleated RBC % 0 % (0-0) 01/12/19 10:36 No leukocytosis hgb is slightly below patient's baseline CMP Sodium 143 mmol/L (136-145) 01/12/19 10:36 Potassium 4.2 mmol/L (3.5-5.1) 01/12/19 10:36 Chloride 108 mmol/L (98-107) H 01/12/19 10:36 Carbon Dioxide 24 mmol/L (21-32) 01/12/19 10:36 Anion Gap 11 MMOL/L (8-16) 01/12/19 10:36 BUN 26 mg/dL (7-18) H 01/12/19 10:36 Creatinine 1.4 mg/dL (0.55-1.3) H 01/12/19 10:36 Creat Clearance w eGFR 37.18 (>60) 01/12/19 10:36 POC Glucometer 93 UNITS (80-120) 01/12/19 10:02 Random Glucose 88 mg/dL (74-106) 01/12/19 10:36 Calcium 9.1 mg/dL (8.5-10.1) 01/12/19 10:36 Total Bilirubin 0.3 mg/dL (0.2-1) 01/12/19 10:36 AST 15 U/L (15-37) 01/12/19 10:36 ALT 14 U/L (13-61) 01/12/19 10:36 Alkaline Phosphatase 48 U/L (45-117) 01/12/19 10:36 Creatine Kinase 77 U/L (26-192) 01/12/19 10:36 Troponin I < 0.02 ng/ml (0.00-0.05) 01/12/19 10:36 Total Protein 6.7 g/dl (6.4-8.2) 01/12/19 10:36 Albumin 3.7 g/dl (3.4-5.0) 01/12/19 10:36 Triglycerides 204 mg/dL (0-150) H 01/12/19 10:36 Cholesterol 181 mg/dL (50-200) 01/12/19 10:36 Total LDL Cholesterol 114 mg/dL (5-100) H 01/12/19 10:36 HDL Cholesterol 37 mg/dL (40-60) L 01/12/19 10:36 Tpn undetectable Elevated cholesterol levels Discussed case with Dr. Prasad. This patient is not a TPA candidate as shown in the TPA exclusion criteria section. Risk/benefits considered. Decision to order CTA with contrast made to rule out aortic dissection. Plan to hydrate patient. 01/12/19 11:55 CTA without acute pathology, my impression. Awaiting radiology report. Patient with significant improvement. Conversant and following commands. BP improved systolic 120s Dr. Abdirahman dorado for admission 01/12/19 13:[address] Murphy who accepted patient for admission 01/12/19 14:00 CTA Neck and Chest: "IMPRESSION: Normal enhancement of the thoracic and abdominal aorta without evidence of aneurysmal dilatation or dissection. Evaluation of the neck is limited due to motion artifacts. Right vertebral artery is dominant relative to the left without gross evidence of hemodynamically significant stenosis or dissection. The vertebrobasilar junction, basilar artery and its intracranial bifurcation appear unremarkable. Limited evaluation of both common carotid arteries due to motion artifacts without definite evidence of dissection. There are calcified plaques in the distal right common carotid artery and at the bifurcation. There is faint enhancement of the left internal carotid artery relative to the right bifurcation without gross evidence of dissection. Correlation with is CT angiogram of the head and neck could be obtained when the patient's condition permits for further evaluation of both, carotid arteries up to the intracranial bifurcation. Soft tissue windows demonstrates an enlarged thyroid gland with a large hypodense left thyroid lobe mass likely a solid mass for which correlation with thyroid ultrasound is needed. Mild hepatomegaly. Dense calcification of the coronary arteries. Small hiatus hernia. Inferior vena cava filter is in satisfactory position. Scattered diverticula in the colon without evidence of acute diverticulitis Case discussed with Dr. Rasheeda Lofton, emergency room caring attending physician" UA with positive nitrites, trace LE, 21 WBC, and 7500 bacteria Prior urine cultures show sensitivity to Rocephin Ordered 1g Rocephin 01/12/19 16:47 Patient requested "heartburn medicine" Passed bedside sip test Mylanta ordered 01/12/19 17:33 *DC/Admit/Observation/Transfer Diagnosis at time of Disposition: TIA (transient ischemic attack) - Discharge Dispostion Condition at time of disposition: Guarded Decision to Admit order: Yes - Referrals - Patient Instructions - Post Discharge Activity
[2019-01-12] MEDS: SODIUM CHLORIDE 1,000 ML IV SCH (10:47)
[2019-01-12 10:51] LABS: BASO % 0.9 % (0-2.0); EOS % 1.6 % (0-4.5); HEMATOCRIT 28.2 % (32.4-45.2); HEMOGLOBIN 8.8 GM/dL (10.7-15.3); LYMPH % 36.4 % (8-40); MCH 25.7 pg (25.7-33.7); MCHC 31.1 g/dl (32.0-36.0); MEAN CELL VOLUME 82.6 fl (80-96); MEAN PLT VOLUME 8.5 fl (7.5-11.1); MONO % 8.7 % (3.8-10.2); NEUT % 52.4 % (42.8-82.8); PLATELET COUNT 285 K/MM3 (134-434); RBC 3.42 M/mm3 (3.60-5.2); RDW 16.1 % (11.6-15.6); WHITE BLOOD COUNT 7.4 K/mm3 (4.0-10.0)
[2019-01-12 11:03] LABS: INR 1.17 (0.83-1.09); PROTHROMBIN TIME (PATIENT) 13.8 SEC (9.7-13.0)
[2019-01-12 11:20] LABS: ALBUMIN 3.7 g/dl (3.4-5.0); ALK PHOS 48 U/L (45-117); ANION GAP 11 MMOL/L (8-16); BILIRUBIN,TOTAL 0.3 mg/dL (0.2-1); BLOOD UREA NITROGEN 26 mg/dL (7-18); CALCIUM 9.1 mg/dL (8.5-10.1); CHLORIDE 108 mmol/L (98-107); CHOLESTEROL 181 mg/dL (50-200); CO2 24 mmol/L (21-32); CREATININE 1.4 mg/dL (0.55-1.3); GLUCOSE,RANDOM 88 mg/dL (74-106); HDL CHOLESTEROL 37 mg/dL (40-60); POTASSIUM 4.2 mmol/L (3.5-5.1); SGOT/AST 15 U/L (15-37); SGPT/ALT 14 U/L (13-61); SODIUM 143 mmol/L (136-145); TOT PROT 6.7 g/dl (6.4-8.2); TRIGLYCERIDES 204 mg/dL (0-150)
--- NOTE | 2019-01-12 12:35 | EKG ---
Test Reason : Blood Pressure : / mmHG Vent. Rate : 099 BPM Atrial Rate : 099 BPM P-R Int : 128 ms QRS Dur : 086 ms QT Int : 372 ms P-R-T Axes : 061 017 043 degrees QTc Int : 477 ms POOR DATA QUALITY, INTERPRETATION MAY BE ADVERSELY AFFECTED SINUS RHYTHM WITH FREQUENT and consecutive PREMATURE VENTRICULAR COMPLEXES ABNORMAL ECG Confirmed by MD CARLOS, MARIAELENA ([id number]) on 01/12/2019 12:34:30 PM Referred By: Confirmed By:MARIAELENA GONZALEZ MD
[2019-01-12] MEDS ORDERED: ONDANSETRON 4 MG/2 ML VIAL IVPB ONE (12:55)
[2019-01-12] MEDS ORDERED: ONDANSETRON 4 MG/2 ML VIAL ONE (12:56)
--- NOTE | 2019-01-12 14:10 | HP ---
Admitting History and Physical - Primary Care Physician PCP: Shreya Best - Admission Chief Complaint: AMS History of Present Illness: ER HISTORY - HPI HPI: 01/12/19 10:19 68 F with h/o breast CA, PE/DVT and stroke in 2005 residual left sided hemiplegia presenting to ED with AMS. Per EMS, 911 was called by home appliance technician who found pt altered this morning. They are unable to confirm a last known normal, though it was likely yesterday. Upon EMS arrival, pt was reportedly awake, alert , oriented to self only. En route, pt had sudden decompensation, becoming non- verbal. In ED, pt able to answer yes or no questions but AnOx0. Pt unable to contribute any additional history but endorses current chest pain and abdominal pain. 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 Home Medications - Allergies Allergies/Adverse Reactions: Allergies Allergy/AdvReac Type Severity Reaction Status Date / Time No Known Drug Allergies Allergy Verified 12/06/18 14:47 - Home Medications Home Medications: Ambulatory Orders Apixaban [Eliquis] 5 mg PO BID 08/25/17 Carvedilol [Coreg -] 25 mg PO BID tablet 08/28/17 Enalapril Maleate [Vasotec -] 5 mg PO BID tablet 08/28/17 Rosuvastatin [Crestor -] 20 mg PO HS tablet 08/28/17 Apixaban [Eliquis] 5 mg PO BID 12/03/18 Baclofen [Lioresal -] 10 mg PO BID 12/03/18 Calcium 500Mg/Vit-D 200 Units [Os-Jose 500+D -] 1 tab PO DAILY 12/03/18 Duloxetine HCl [Cymbalta -] 20 mg PO DAILY 12/03/18 Gabapentin [Neurontin] 300 mg PO HS 12/03/18 Omeprazole 40 mg PO DAILY 12/03/18 Oxybutynin Chloride [Oxybutynin Chloride ER] 10 mg PO DAILY 12/03/18 Benzocaine/Menthol [Cepacol Sore Throat Lozenge] 1 each PO DAILY PRN #30 lozenge 12/10/18 Family Disease History - Family Disease History Family Disease History: CA: Sister (6, alive: 1 with BCA), Other: Father ( 88: CHF), Mother (: 70's: CHF), Brother (6: : "heart problems"), Sister Review of Systems - Review of Systems Constitutional: denies: Chills, Fever Gastrointestinal: reports: Abdominal Pain Physical Examination Vital Signs: Vital Signs Temperature 98.6 F 01/12/19 10:14 Pulse Rate 99 H 01/12/19 13:04 Respiratory Rate 19 01/12/19 13:04 Blood Pressure 120/87 01/12/19 13:04 O2 Sat by Pulse Oximetry (%) 98 01/12/19 13:04 Constitutional: Yes: No Distress, Calm Cardiovascular: Yes: Regular Rate and Rhythm Respiratory: Yes: CTA Bilaterally Gastrointestinal: Yes: Normal Bowel Sounds, Soft, Tenderness Edema: No Neurological: Yes: Alert, Facial Droop, Weakness (worsening left arm weakness) Psychiatric: Yes: Alert, Oriented Labs: CBC, BMP 01/12/19 10:36 01/12/19 10:36 Imaging - Results Chest X-ray: Image Reviewed Cat Scan: Report Reviewed EKG: Image Reviewed (nsr) Problem List - Problems (1) TIA (transient ischemic attack) Code(s): G45.9 - TRANSIENT CEREBRAL ISCHEMIC ATTACK, UNSPECIFIED (2) Abdominal pain Code(s): R10.9 - UNSPECIFIED ABDOMINAL PAIN Qualifiers: Abdominal location: epigastric Qualified Code(s): R10.13 - Epigastric pain (3) Breast cancer Code(s): C50.919 - MALIGNANT NEOPLASM OF UNSP SITE OF UNSPECIFIED FEMALE BREAST Qualifiers: Breast location: unspecified site of breast (4) Carotid stenosis, right Code(s): I65.21 - OCCLUSION AND STENOSIS OF RIGHT CAROTID ARTERY (5) Cerebral arteriosclerosis with history of previous stroke Code(s): I67.2 - CEREBRAL ATHEROSCLEROSIS; Z86.73 - PRSNL HX OF TIA (TIA), AND CEREB INFRC W/O RESID DEFICITS (6) History of coronary artery disease Code(s): Z86.79 - PERSONAL HISTORY OF OTHER DISEASES OF THE CIRCULATORY SYSTEM (7) Hyperlipidemia Code(s): E78.5 - HYPERLIPIDEMIA, UNSPECIFIED Qualifiers: Hyperlipidemia type: pure hypercholesterolemia Qualified Code(s): E78.00 - Pure hypercholesterolemia, unspecified; E78.0 - Pure hypercholesterolemia (8) Hypertension Code(s): I10 - ESSENTIAL (PRIMARY) HYPERTENSION Qualifiers: Hypertension type: essential hypertension Qualified Code(s): I10 - Essential (primary) hypertension Assessment/Plan PLAN AMS possible TIA Head CT negative CT neck ordered brain MRI ordered-- she has worsening left arm weakness and facial droop check Echo continue statins, Eliquis Neurology eval check UA Abd pain -- check abd sono iv fluids HTN -- on meds
[2019-01-12 14:46] LABS: EPI CELLS 2.1 /HPF (0-5/HPF); PH,URINE 5.5 (5.0-8.0); URINE APPEARANCE CLEAR; URINE BILIRUBIN NEGATIVE (NEGATIVE); URINE CASTS 6 /lpf (0-8); URINE COLOR YELLOW; URINE GLUCOSE (UA) NEGATIVE (NEGATIVE); URINE KETONE 2+ (NEGATIVE); URINE LEUK ESTERASE TRACE (NEGATIVE); URINE NITRITE POSITIVE (NEGATIVE); URINE PROTEIN NEGATIVE (NEGATIVE); URINE RBC 3 /hpf (0-4); URINE UROBILINOGEN 0.2 mg/dL (0.2-1.0); URINE WBC 21 /hpf (0-5)
[2019-01-12] MEDS ORDERED: CEFTRIAXONE 1,000 MG in DEXTROSE 5%-WATER - 50 ML IVPB ONE (16:46)
[2019-01-12] MEDS ORDERED: MAG HYDROX/AL HYDROX/SIMETH 30 ML UNIT-DOSE CUP PO ONE (17:32)
[2019-01-12] MEDS ORDERED: MAG HYDROX/AL HYDROX/SIMETH 30 ML UNIT-DOSE CUP ONE (17:55)
[2019-01-12] MEDS ORDERED: CEFTRIAXONE 1 GM/50 ML BAG ONE (17:55)
--- NOTE | 2019-01-12 20:23 | PN ---
Progress Note, Physician Chief Complaint: Pt. is followed by Dr. Kim Wiley as outpt. please call him for consultation. - Current Medication List Current Medications: Active Medications Apixaban (Eliquis -) 5 mg PO BID [facility] Carvedilol (Coreg -) 25 mg PO BID [facility] Enalapril Maleate (Vasotec -) 5 mg PO BID [facility] Gabapentin (Neurontin -) 300 mg PO HS [facility] Sodium Chloride (Normal Saline -) 1,000 mls @ 42 mls/hr IV ASDIR SAMANTHA Last Admin: 01/12/19 10:47 Dose: 42 mls/hr Oxybutynin Chloride (Ditropan -) 10 mg PO DAILY [facility] Rosuvastatin Calcium (Crestor -) 20 mg PO HS [facility] - Objective Vital Signs: Vital Signs Temperature 98 F 01/12/19 18:39 Pulse Rate 79 01/12/19 18:39 Respiratory Rate 17 01/12/19 18:39 Blood Pressure 109/79 01/12/19 18:39 O2 Sat by Pulse Oximetry (%) 98 01/12/19 18:39 Labs: CBC, BMP 01/12/19 10:36 01/12/19 10:36 INR, PTT INR 1.17 (0.83-1.09) H 01/12/19 10:36
[2019-01-12] MEDS: ROSUVASTATIN CA 20 MG TABLET (FP) PO SCH (23:07)
[2019-01-12] MEDS: GABAPENTIN 300 MG CAPSULE (FP) PO SCH (23:08)
[2019-01-12] MEDS: APIXABAN 5 MG TABLET PO SCH (23:08)
[2019-01-12] MEDS: CARVEDILOL 25 MG TABLET (FP) PO SCH (23:17)
[2019-01-12] MEDS: ENALAPRIL MALEATE 5 MG TABLET (FP) PO SCH (23:18)
[2019-01-13] MEDS ORDERED: ENALAPRIL MALEATE 5 MG TABLET (FP) ONE (01:02)
[2019-01-13] MEDS ORDERED: CARVEDILOL 12.5 MG TABLET (FP) ONE (01:02)
[2019-01-13] MEDS ORDERED: GABAPENTIN 100 MG CAPSULE (FP) ONE (01:02)
[2019-01-13 08:11] LABS: HEMATOCRIT 25.8 % (32.4-45.2); MCH 25.5 pg (25.7-33.7); MCHC 31.2 g/dl (32.0-36.0); MEAN CELL VOLUME 81.6 fl (80-96); MEAN PLT VOLUME 8.5 fl (7.5-11.1); PLATELET COUNT 265 K/MM3 (134-434); RBC 3.16 M/mm3 (3.60-5.2)
[2019-01-13 08:52] LABS: ALBUMIN 3.4 g/dl (3.4-5.0); ALK PHOS 46 U/L (45-117); ANION GAP 8 MMOL/L (8-16); BILIRUBIN,TOTAL 0.3 mg/dL (0.2-1); BLOOD UREA NITROGEN 20 mg/dL (7-18); CALCIUM 8.9 mg/dL (8.5-10.1); CHLORIDE 110 mmol/L (98-107); CHOLESTEROL 150 mg/dL (50-200); CO2 26 mmol/L (21-32); CREATININE 1.3 mg/dL (0.55-1.3); GLUCOSE,RANDOM 92 mg/dL (74-106); HDL CHOLESTEROL 31 mg/dL (40-60); POTASSIUM 4.3 mmol/L (3.5-5.1); SGOT/AST 17 U/L (15-37); SGPT/ALT 15 U/L (13-61); SODIUM 143 mmol/L (136-145); TOT PROT 6.3 g/dl (6.4-8.2); TRIGLYCERIDES 181 mg/dL (0-150)
--- NOTE | 2019-01-13 11:41 | PN ---
Progress Note (short form) - Note Progress Note: Pt better today At baseline She wants to go home No complaints Vital Signs - 24 hr 01/12/19 01/12/19 01/12/19 18:39 22:13 22:54 Temperature 98 F Pulse Rate [ 79 103 H Apical] Respiratory 17 16 Rate Blood Pressure 109/79 122/63 [Right Calf] O2 Sat by Pulse 98 95 95 Oximetry (%) 01/13/19 06:43 Temperature Pulse Rate [ 90 Apical] Respiratory 20 Rate Blood Pressure 128/71 [Right Calf] O2 Sat by Pulse 100 Oximetry (%) Current Medications Generic Name Dose Route Start Last Admin Trade Name Freq PRN Reason Stop Dose Admin Apixaban 5 mg 01/12/19 22:00 01/13/19 11:58 Eliquis - PO 5 mg BID SAMANTHA Administration Carvedilol 25 mg 01/12/19 22:00 01/13/19 11:58 Coreg - PO 25 mg BID SAMANTHA Administration Enalapril Maleate 5 mg 01/12/19 22:00 01/13/19 11:59 Vasotec - PO 5 mg BID SAMANTHA Administration Gabapentin 300 mg 01/12/19 22:00 01/12/19 23:08 Neurontin - PO 300 mg HS SAMANTHA Administration Sodium Chloride 1,000 mls @ 42 mls/hr 01/12/19 10:15 01/13/19 11:59 Normal Saline - IV 42 mls/hr ASDIR SAMANTHA Administration Oxybutynin Chloride 10 mg 01/13/19 10:00 01/13/19 11:59 Ditropan - PO 10 mg DAILY SAMANTHA Administration Rosuvastatin Calcium 20 mg 01/12/19 22:00 01/12/19 23:07 Crestor - PO 20 mg HS SAMANTHA Administration Laboratory Results - last 24 hr 01/12/19 01/13/19 01/13/19 13:40 07:55 07:55 WBC 8.0 RBC 3.16 L Hgb 8.0 L Hct 25.8 L MCV 81.6 MCH 25.5 L MCHC 31.2 L RDW 16.0 H Plt Count 265 MPV 8.5 Sodium 143 Potassium 4.3 Chloride 110 H Carbon Dioxide 26 Anion Gap 8 BUN 20 H Creatinine 1.3 Creat Clearance w eGFR 40.49 Random Glucose 92 Calcium 8.9 Total Bilirubin 0.3 AST 17 ALT 15 Alkaline Phosphatase 46 Total Protein 6.3 L Albumin 3.4 Triglycerides 181 H Cholesterol 150 Total LDL Cholesterol 89 HDL Cholesterol 31 L TSH 0.70 Urine Color Yellow Urine Appearance Clear Urine pH 5.5 Ur Specific Ridge 1.057 H Urine Protein Negative Urine Glucose (UA) Negative Urine Ketones 2+ H Urine Blood Negative Urine Nitrite Positive H Urine Bilirubin Negative Urine Urobilinogen 0.2 Ur Leukocyte Esterase Trace Urine WBC (Auto) 21 Urine RBC (Auto) 3 Urine Casts (Auto) 6 U Epithel Cells (Auto) 2.1 Urine Bacteria (Auto) 7475.0 S1 S2 RRR Lungs clear Abd- soft, obese, NT No edema Left arm weakness= same Facial droop same as previous PLAN MRI brain noted -- no new infarcts CT neck-- ordered thyroid sono regarding thyroid mass Neurology eval Echo noted PT eval Appreciate swallow eval continue with meds Pt has h/o falls at home-- has home PT /STORE PERSON/VNS She admits that she receives packet of all her meds daily from her pharmacy and thinks that she may have overmedicated iv antibiotics for UTI Problem List - Problems (1) TIA (transient ischemic attack) Code(s): G45.9 - TRANSIENT CEREBRAL ISCHEMIC ATTACK, UNSPECIFIED (2) Abdominal pain Code(s): R10.9 - UNSPECIFIED ABDOMINAL PAIN Qualifiers: Abdominal location: epigastric Qualified Code(s): R10.13 - Epigastric pain (3) Breast cancer Code(s): C50.919 - MALIGNANT NEOPLASM OF UNSP SITE OF UNSPECIFIED FEMALE BREAST Qualifiers: Breast location: unspecified site of breast (4) Carotid stenosis, right Code(s): I65.21 - OCCLUSION AND STENOSIS OF RIGHT CAROTID ARTERY (5) Cerebral arteriosclerosis with history of previous stroke Code(s): I67.2 - CEREBRAL ATHEROSCLEROSIS; Z86.73 - PRSNL HX OF TIA (TIA), AND CEREB INFRC W/O RESID DEFICITS (6) History of coronary artery disease Code(s): Z86.79 - PERSONAL HISTORY OF OTHER DISEASES OF THE CIRCULATORY SYSTEM (7) Hyperlipidemia Code(s): E78.5 - HYPERLIPIDEMIA, UNSPECIFIED Qualifiers: Hyperlipidemia type: pure hypercholesterolemia Qualified Code(s): E78.00 - Pure hypercholesterolemia, unspecified; E78.0 - Pure hypercholesterolemia (8) Hypertension Code(s): I10 - ESSENTIAL (PRIMARY) HYPERTENSION Qualifiers: Hypertension type: essential hypertension Qualified Code(s): I10 - Essential (primary) hypertension (9) UTI (urinary tract infection) Code(s): N39.0 - URINARY TRACT INFECTION, SITE NOT SPECIFIED
--- NOTE | 2019-01-13 11:54 | CONSULT ---
Admitting History and Physical - Primary Care Physician PCP: Annabelle Murphy - Admission History of Present Illness: 68 F with h/o breast CA, PE/DVT and stroke in 2005 residual left sided hemiplegia presenting to ED with AMS. CT head/MRI (-) r/o TIA Selected Entries 01/12/19 01/12/19 01/12/19 10:14 10:47 13:04 Pulse Rate 49 L Pulse Rate [ 99 H 99 H Apical] Blood Pressure 210/110 H Blood Pressure 121/58 L 120/87 [Right Calf] 01/12/19 01/12/19 01/13/19 18:39 22:54 06:43 Pulse Rate Pulse Rate [ 79 103 H 90 Apical] Blood Pressure Blood Pressure 109/79 122/63 128/71 [Right Calf] Laboratory Tests 01/12/19 01/12/19 01/13/19 10:36 10:36 07:55 WBC 7.4 8.0 PT with INR 13.80 H Pt seen in ER, fully oriented, a good historian. 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 She reports falling at home twice, crawling to her medicalert station to call 911, who helped her get up. She would like to return home.She also reports some difficulty taking her meds and said she felt "drunk" after taking them and wonders if that resulted in her admission.I communicated this with pt's PMD. 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 History - Admission Reason For Visit: TIA - Diagnostics X-ray: Report Reviewed CT Scan: Report Reviewed MRI: Report Reviewed - General Mental Status: Alert and Oriented, Awake and Alert, Able to Follow Commands Attention: Intact Ability to Follow Directions: Excellent Head/Neck Control: WFL - Hearing Hearing: Functional Speech Evaluation - Communication Primary Language: LAO Communication: Yes: Within Normal Limits Oral Expression Ability: Yes: No Impairment - Speech Production Able to Make Needs Known: Yes: WNL Intelligibility: Yes: WNL - Speech Characteristics Voice Loudness: Normal Voice Pitch: Yes: Normal Voice Phonatory-based Quality: Yes: Normal Speech Pattern: Normal Speech Clarity: < 100% Nasal Resonance: Normal Articulation: Yes: Precise Rate of Speech: Intact - Language/Auditory Comprehension Follows: Yes: 2 Stage Simple Commands Observation: Able to respond to yes/no queries: Yes, Yes/No Confusion: No, Comprehends Conversational Speech: Yes - Language/Verbal Expression Able to Respond to Simple Queries: Yes: WNL Able to Communicate Wants and Needs: Yes: WNL Functional Communication Status: Yes: WNL - Memory/Perception terminal superintendent Memory: Yes: WNL Short Term Memory: Yes: WNL - Swallow Evaluation/Bedside Assessment Current Nutritional Intake: NPO Oral Secretions: Yes: WFL Dentition: Yes: Adequate Facial Symmetry at Rest: Symmetrical Facial Symmetry on Retraction: Symmetrical Facial Movement: Controlled Sensation: Normal Against Resistance Opening: Normal Against Resistance Closing: Normal Pucker Lips: Normal Smile: Normal Lingual Movement: Normal, Symmetric Lingual Speed of Movement: Normal Lingual Movement Strgth Against Opposition: Normal Lingual Movement Characteristics: Normal Velopharyngeal Movement: Normal Laryngeal Elevation: WFL Laryngeal Movement: Able to Palpate Rate of Intake: WFL Bolus Size: WFL Labial Seal: WFL Chewing: WFL Oral Prep Time: WFL A-P Transit: WFL Timing of Swallow: WFL Coughing/Throat Clear: No Change in Voice: No Recommendations - Speech Evaluation, Impression/Plan Impression: Speech/swallow/cognition/swallowing intact. - Disposition Discharge to: To be Determined - Dysphagia Impressions/Plan Swallowing Skills: WFL Dysphagia Impressions: No Impairment *Silent aspiration: cannot be R/O at bedside - Recommendations Diet Consistency: Regular Medication Administration: Whole with water Liquids: Thin Liquids
[2019-01-13] MEDS: APIXABAN 5 MG TABLET PO SCH ×2 (11:58→21:46)
[2019-01-13] MEDS: CARVEDILOL 25 MG TABLET (FP) PO SCH ×2 (11:58→21:46)
[2019-01-13] MEDS: ENALAPRIL MALEATE 5 MG TABLET (FP) PO SCH ×2 (11:59→21:46)
[2019-01-13] MEDS: SODIUM CHLORIDE 1,000 ML IV SCH ×2 (11:59→15:06)
[2019-01-13] MEDS: OXYBUTYNIN CHLORIDE 5 MG TABLET PO SCH (11:59)
--- NOTE | 2019-01-13 13:21 | ECHO ---
Name: BRYSON FANG Exam:Adult Echocardiogram Study Date: 01/13/2019 09:48 AM Age: 68 yrs Reason For Study: TIA Height: 64 in Weight: 165 lb BSA: 1.8 m2 MMode/2D Measurements & Calculations IVSd: 1.3 cm Ao root diam: 2.5 cm LVIDd: 5.3 cm LA dimension: 4.3 cm LVIDs: 3.8 cm LVPWd: 0.99 cm EDV(Teich): 134.4 ml LVOT diam: 2.0 cm ESV(Teich): 60.9 ml Doppler Measurements & Calculations MV E max deepak: 46.9 cm/sec Ao V2 max: 185.7 cm/sec MV A max deepak: 92.8 cm/sec Ao max P.8 mmHg MV E/A: 0.51 Ao V2 mean: 129.5 cm/sec Ao mean P.4 mmHg Ao V2 VTI: 36.5 cm VIKKI(I,D): 1.9 cm2 VIKKI(V,D): 2.1 cm2 LV V1 max P.5 mmHg MR max deepak: 617.0 cm/sec LV V1 mean P.2 mmHg MR max P.3 mmHg LV V1 max: 127.8 cm/sec LV V1 mean: 64.3 cm/sec LV V1 VTI: 23.3 cm SV(LVOT): 70.1 ml TR max deepak: 283.7 cm/sec TR max P.3 mmHg Med Peak E' Deepak: 3.7 cm/sec Med E/e': 12.8 Lat Peak E' Deepak: 6.8 cm/sec Lat E/e': 6.9 Procedure The study was technically difficult with many images being suboptimal in quality. Left Ventricle The left ventricular size, thickness and function are normal. The left ventricular ejection fraction is normal. E/A reversal consistent with but not diagnostic of poor LV compliance. Regional wall motion abnormalities cannot be excluded due to limited visualization. Right Ventricle The right ventricle is normal in size and function. Atria The left atrium is moderately dilated. The right atrium is moderately dilated. Mitral Valve There is mild mitral valve thickening. There is no mitral valve stenosis. There is moderate mitral regurgitation. Tricuspid Valve There is mild tricuspid valve thickening. There is no tricuspid stenosis. There is moderate tricuspid regurgitation. Right ventricular systolic pressure is elevated at 40-50mmHg. Aortic Valve The aortic valve is trileaflet. There is mild aortic valve thickening. There is mild aortic sclerosis .;. No hemodynamically significant valvular aortic stenosis. No aortic regurgitation is present. Pulmonic Valve The pulmonic valve is not well visualized. Great Vessels The aortic root is normal size. Pericardium/Pleura There is no pericardial effusion. Interpretation Summary The study was technically difficult with many images being suboptimal in quality. The left ventricular size, thickness and function are normal The left ventricular ejection fraction is normal. The left atrium is moderately dilated. The right atrium is moderately dilated. There is moderate tricuspid regurgitation. Right ventricular systolic pressure is elevated at 40-50mmHg. There is mild aortic sclerosis.; There is mild aortic valve thickening. The aortic valve is trileaflet. Regional wall motion abnormalities cannot be excluded due to limited visualization. E/A reversal consistent with but not diagnostic of poor LV compliance There is moderate mitral regurgitation. MD Javier Ventura 01/13/2019 01:21 PM
[2019-01-13 14:54] VITALS: BMI 26.6
[2019-01-13] MEDS ORDERED: DEXTROSE 5%-WATER - 50 ML IVPB ONE (15:03)
[2019-01-13] MEDS ORDERED: cefTRIAXone SODIUM 1 GM VIAL ONE (15:03)
[2019-01-13] MEDS: CEFTRIAXONE 1 GM in DEXTROSE 5%-WATER - 50 ML IVPB SCH (15:06)
[2019-01-13] MEDS ORDERED: PT OWN MED DRAWER 7, Y5N ONE (21:42)
[2019-01-13] MEDS: GABAPENTIN 300 MG CAPSULE (FP) PO SCH (21:46)
[2019-01-13] MEDS: ROSUVASTATIN CA 20 MG TABLET (FP) PO SCH (21:53)
[2019-01-14] MEDS ORDERED: RANITIDINE HCL 150 MG TABLET (FP) PO ONE (00:31)
[2019-01-14] MEDS ORDERED: SODIUM CHLORIDE 1,000 ML IV STA (00:33)
[2019-01-14] MEDS ORDERED: PT OWN MED DRAWER 7, Y5N ONE ×2 (08:01→21:38)
[2019-01-14] MEDS ORDERED: SODIUM CHLORIDE 1,000 ML IV SCH (08:38)
[2019-01-14] MEDS ORDERED: cefTRIAXone SODIUM 1 GM VIAL ONE (09:49)
[2019-01-14] MEDS ORDERED: DEXTROSE 5%-WATER - 50 ML IVPB ONE (09:50)
--- NOTE | 2019-01-14 10:04 | CON.NEURO ---
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 Medications - Allergies Allergies/Adverse Reactions: Allergies Allergy/AdvReac Type Severity Reaction Status Date / Time No Known Drug Allergies Allergy Verified 12/06/18 14:47 - Home Medications Home Medications: Ambulatory Orders Apixaban [Eliquis] 5 mg PO BID 08/25/17 Carvedilol [Coreg -] 25 mg PO BID tablet 08/28/17 Enalapril Maleate [Vasotec -] 5 mg PO BID tablet 08/28/17 Rosuvastatin [Crestor -] 20 mg PO HS tablet 08/28/17 Baclofen [Lioresal -] 10 mg PO BID 12/03/18 Calcium 500Mg/Vit-D 200 Units [Os-Jose 500+D -] 1 tab PO DAILY 12/03/18 Duloxetine HCl [Cymbalta -] 20 mg PO DAILY 12/03/18 Gabapentin [Neurontin] 300 mg PO HS 12/03/18 Omeprazole 40 mg PO DAILY 12/03/18 Oxybutynin Chloride [Oxybutynin Chloride ER] 10 mg PO DAILY 12/03/18 Benzocaine/Menthol [Cepacol Sore Throat Lozenge] 1 each PO DAILY PRN #30 lozenge 12/10/18 Family Disease History - Family Disease History Family Disease History: CA: Sister (6, alive: 1 with BCA), Other: Father ( 88: CHF), Mother (: 70's: CHF), Brother (6: : "heart problems"), Sister Physical Exam-Neuro Vital Signs: Vital Signs Temperature 97.6 F 01/14/19 02:00 Pulse Rate 82 01/14/19 08:00 Respiratory Rate 18 01/14/19 08:00 Blood Pressure 113/56 L 01/14/19 08:00 O2 Sat by Pulse Oximetry (%) 100 01/13/19 20:18 Constitutional: Yes: Well Nourished Neck: Yes: WNL Labs: CBC, BMP 01/13/19 07:55 01/13/19 07:55 INR, PTT INR 1.17 (0.83-1.09) H 01/12/19 10:36 - Neuro Exam Level Of Consciousness: Yes: Oriented to Person, Oriented to Place, Oriented to Time Eyes: Yes: PERRLA Speech: WNL Dominant Hand: Right Cranial Nerves II-XII Intact: Yes Gag: Absent DTR's: 1+ Left Bicep, 1+ Right Bicep, 1+ Right Tricep, 1+ Left Brachioradialis Response to light touch: Normal Response to pain prick: Normal Response to temperature: Normal Response to vibration: Normal Motor Strength: 3/5: Left Arm, Right Arm, Left Leg, Right Leg Gait: Deferred Imaging - Results Cat Scan: Image Reviewed Problem List - Problems (1) TIA (transient ischemic attack) Assessment/Plan: DOUBT TIA Resolving Toxic metabolic encephalopathy with medication mistake by [facility] patient Stroke prevention 1. Reviewed [facility] MRI 2. Neuro ok to go to the floor 3. EEG 4. Blood work fall precautions Code(s): G45.9 - TRANSIENT CEREBRAL ISCHEMIC ATTACK, UNSPECIFIED
[2019-01-14] MEDS ORDERED: ONDANSETRON 4 MG/2 ML VIAL IVPUSH PRN (10:32)
--- NOTE | 2019-01-14 10:59 | PN ---
Progress Note (short form) - Note Progress Note: Pt vomited after eating her breakfast As per RN- she was washing her mouth and she gagged and vomited all her food no abd pain Vital Signs - 24 hr 01/13/19 01/13/19 01/13/19 14:04 14:14 20:03 Temperature 97.5 F L 97.8 F Pulse Rate 95 H 92 H 95 H Respiratory 22 H 21 H 17 Rate Blood Pressure 105/45 L 105/45 L 126/115 H O2 Sat by Pulse Oximetry (%) 01/13/19 01/14/19 01/14/19 20:18 00:00 00:10 Temperature Pulse Rate 88 87 Respiratory 17 19 21 H Rate Blood Pressure 68/40 L 75/31 L O2 Sat by Pulse 100 Oximetry (%) 01/14/19 01/14/19 01/14/19 00:35 02:00 04:00 Temperature 97.6 F Pulse Rate 84 83 78 Respiratory 16 18 17 Rate Blood Pressure 81/44 L 81/68 L 86/67 L O2 Sat by Pulse Oximetry (%) 01/14/19 01/14/19 08:00 10:47 Temperature Pulse Rate 82 84 Respiratory 18 18 Rate Blood Pressure 113/56 L 132/60 O2 Sat by Pulse Oximetry (%) Current Medications Generic Name Dose Route Start Last Admin Trade Name Freq PRN Reason Stop Dose Admin Apixaban 5 mg 01/12/19 22:00 01/13/19 21:46 Eliquis - PO 5 mg BID SAMANTHA Administration Carvedilol 12.5 mg 01/14/19 10:00 Coreg - PO BID SAMANTHA Enalapril Maleate 5 mg 01/12/19 22:00 01/13/19 21:46 Vasotec - PO 5 mg BID SAMANTHA Administration Gabapentin 300 mg 01/12/19 22:00 01/13/19 21:46 Neurontin - PO 300 mg HS SAMANTHA Administration Ceftriaxone Sodium 1 gm/ 50 mls @ 100 mls/hr 01/13/19 14:15 01/13/19 15:06 Dextrose IVPB 100 mls/hr DAILY SAMANTHA Administration Sodium Chloride 1,000 mls @ 80 mls/hr 01/14/19 08:38 Normal Saline - IV ASDIR SAMANTHA Dextrose/Sodium Chloride 1,000 mls @ 83 mls/hr 01/14/19 11:00 D5-Ns - IV ASDIR SAMANTHA Ondansetron HCl 4 mg 01/14/19 10:32 Zofran Injection IVPUSH Q6H PRN NAUSEA AND/OR VOMITING Oxybutynin Chloride 10 mg 01/13/19 10:00 01/13/19 11:59 Ditropan - PO 10 mg DAILY SAMANTHA Administration Rosuvastatin Calcium 20 mg 01/12/19 22:00 01/13/19 21:53 Crestor - PO 20 mg HS SAMANTHA Administration S1 S2 RRR Lungs clear Abd- soft, obese, NT, BS+, not distended No edema Left arm weakness= same Facial droop same as previous PLAN MRI brain noted -- no new infarcts CT neck-- ordered thyroid sono regarding thyroid mass--> to be done outpt per Radiology dept Neurology eval Echo noted PT eval Appreciate swallow eval continue with meds Pt has h/o falls at home-- has home PT /FEATHERER/VNS She admits that she receives packet of all her meds daily from her pharmacy and thinks that she may have overmedicated iv antibiotics for UTI Vomiting-- check KUB xray , sono abd -- as her gallbladder is distended on CT IV fluids-- D5 NS Keep NPO for now Zofran as needed pt admits to frequent episodes of vomiting at home-- can this be reason for her to be vasovagal and become altered? start PPI GI eval Problem List - Problems (1) TIA (transient ischemic attack) Code(s): G45.9 - TRANSIENT CEREBRAL ISCHEMIC ATTACK, UNSPECIFIED (2) Abdominal pain Code(s): R10.9 - UNSPECIFIED ABDOMINAL PAIN Qualifiers: Abdominal location: epigastric Qualified Code(s): R10.13 - Epigastric pain (3) Breast cancer Code(s): C50.919 - MALIGNANT NEOPLASM OF UNSP SITE OF UNSPECIFIED FEMALE BREAST Qualifiers: Breast location: unspecified site of breast (4) Carotid stenosis, right Code(s): I65.21 - OCCLUSION AND STENOSIS OF RIGHT CAROTID ARTERY (5) Cerebral arteriosclerosis with history of previous stroke Code(s): I67.2 - CEREBRAL ATHEROSCLEROSIS; Z86.73 - PRSNL HX OF TIA (TIA), AND CEREB INFRC W/O RESID DEFICITS (6) History of coronary artery disease Code(s): Z86.79 - PERSONAL HISTORY OF OTHER DISEASES OF THE CIRCULATORY SYSTEM (7) Hyperlipidemia Code(s): E78.5 - HYPERLIPIDEMIA, UNSPECIFIED Qualifiers: Hyperlipidemia type: pure hypercholesterolemia Qualified Code(s): E78.00 - Pure hypercholesterolemia, unspecified; E78.0 - Pure hypercholesterolemia (8) Hypertension Code(s): I10 - ESSENTIAL (PRIMARY) HYPERTENSION Qualifiers: Hypertension type: essential hypertension Qualified Code(s): I10 - Essential (primary) hypertension (9) UTI (urinary tract infection) Code(s): N39.0 - URINARY TRACT INFECTION, SITE NOT SPECIFIED
[2019-01-14] MEDS ORDERED: PANTOPRAZOLE SODIUM 40 MG VIAL IVPUSH SCH (11:00)
[2019-01-14] MEDS: CARVEDILOL 25 MG TABLET (FP) PO SCH ×2 (11:49→22:07)
[2019-01-14] MEDS: OXYBUTYNIN CHLORIDE 5 MG TABLET PO SCH (11:49)
[2019-01-14] MEDS: ENALAPRIL MALEATE 5 MG TABLET (FP) PO SCH ×2 (11:50→22:10)
[2019-01-14] MEDS: CEFTRIAXONE 1 GM in DEXTROSE 5%-WATER - 50 ML IVPB SCH (11:50)
[2019-01-14] MEDS: DEXTROSE 5%-NORMAL SALINE 1,000 ML IV SCH (11:50)
[2019-01-14] MEDS: APIXABAN 5 MG TABLET PO SCH ×2 (11:53→22:09)
--- NOTE | 2019-01-14 11:56 | PN ---
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 Pt feels quite weak. NPO.
--- NOTE | 2019-01-14 17:27 | CON.GI ---
Consult Consult Specialty:: GI Referred by:: Dr. Annabelle Murphy Reason for Consultation:: Vomiting - History of Present Illness Chief Complaint: Admitted for altered mental status History of Present Illness: 68F admitted for evaluation of altered mental status 01/12/19. Asked to evaluate periodic vomiting. She denies abdominal pain. She denies a change in bowel habits. She denies overt rectal bleeding or melena. She does describe constipation and has not had a BM for 3 days. She underwent EGD and colonoscopy with il 07/09: EGD revealed 5cm hiatal hernia, LA Grade A reflux esophagitis and otherwise normal stomach and duodenum. Colonoscopy revealed moderate sigmoid diverticulosis. She also underwent EGD with Dr. Fair 01/18/11 revealing antral erosions and a schatzki's ring along with a hiatal hernia. Colonoscopy 05/10/[address] Fair revealed hepatic flexure polyps ( hyperplastic), mild diverticulosis and was otherwise normal. An adequate prep was derscribed. She was previously getting evaluated by her informatics scientist Dr. Hyman given frequent PVC's noted on recent EKG during 05/09 hospitalization. There is no family history of colorectal cancer or other GI malignancy. 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) Cardio/Vascular: Yes: CAD (with cardiac stenting x 2), Deep Vein Thrombosis, HTN , Hyperlipdemia Pulmonary: Yes: Pulmonary Embolus Gastrointestinal: Yes: Diverticulosis - Past Surgical History Past Surgical History: Yes: Hysterectomy (ELIZABETH/BSO), Mastectomy (and lumpectomy) , Stent - Alcohol/Substance Use Hx Alcohol Use: No History of Substance Use: reports: None - Smoking History Smoking history: Former smoker Have you smoked in the past 12 months: No Aproximately how many cigarettes per day: 0 If you are a former smoker, when did you quit?: 6 YEARS AGO - Social History 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 Place of : [employer] [facility] History of Recent Travel: No Home Medications - Allergies Allergies/Adverse Reactions: Allergies Allergy/AdvReac Type Severity Reaction Status Date / Time No Known Drug Allergies Allergy Verified 12/06/18 14:47 - Home Medications Home Medications: Ambulatory Orders Apixaban [Eliquis] 5 mg PO BID 12/04/17 Carvedilol [Coreg -] 25 mg PO BID tablet 08/28/17 Enalapril Maleate [Vasotec -] 5 mg PO BID tablet 08/28/17 Rosuvastatin [Crestor -] 20 mg PO HS tablet 08/28/17 Baclofen [Lioresal -] 10 mg PO BID 12/03/18 Calcium 500Mg/Vit-D 200 Units [Os-Jose 500+D -] 1 tab PO DAILY 12/03/18 Duloxetine HCl [Cymbalta -] 20 mg PO DAILY 12/03/18 Gabapentin [Neurontin] 300 mg PO HS 12/03/18 Omeprazole 40 mg PO DAILY 12/03/18 Oxybutynin Chloride [Oxybutynin Chloride ER] 10 mg PO DAILY 12/03/18 Benzocaine/Menthol [Cepacol Sore Throat Lozenge] 1 each PO DAILY PRN #30 lozenge 12/10/18 Family Disease History - Family Disease History Family Disease History: CA: Sister (6, alive: 1 with BCA), Other: Father ( 88: CHF), Mother (: 70's: CHF), Brother (6: : "heart problems"), Sister Other Family History: No family history of colorectal cancer Review of Systems - Review of Systems Constitutional: denies: Fever Gastrointestinal: reports: Vomiting. denies: Constipation, Diarrhea, Dysphagia , Melena, Rectal Bleeding, Vomiting Blood Physical Exam-GI Vital Signs: Vital Signs Temperature 99.2 F 01/14/19 13:51 Pulse Rate 82 01/14/19 13:51 Respiratory Rate 18 01/14/19 13:51 Blood Pressure 126/66 01/14/19 13:51 O2 Sat by Pulse Oximetry (%) 100 01/13/19 20:18 Constitutional: Yes: Calm Eyes: No: Sclera Icterus Cardiovascular: Yes: Regular Rate and Rhythm. No: Murmur Respiratory: Yes: CTA Bilaterally Gastrointestinal Inspection: Yes: Scars (pelvic) ...Auscultate: Yes: Normoactive Bowel Sounds ...Palpate: Yes: Soft, Tenderness. No: Hepatomegaly, Splenomegaly ...Percussion: No: Tympanitic ...Rectal Exam: Yes: Other (no external lesions, no masses, no fecal impaction, no blood/melena. Scant yellow stool in rectal vault.) Edema: No (No LE edema) Neurological: Yes: Alert Labs: CBC, BMP 01/13/19 07:55 01/13/19 07:55 INR, PTT INR 1.17 (0.83-1.09) H 01/12/19 10:36 Problem List - Problems (1) Vomiting Assessment/Plan: Recent EGD 07/09 revealing 5cm hiatal hernia, reflux esophagitis and was otherwise unremarkable Advise: Home medication elimination as feasible. On multiple medications that can lead to nausea/vomiting, upper GI dysmotility. ? Vasovagal response. Advised that she eat upright given her hiatal hernia and stay upright for 2-3 hours after meals For abdominal US (AXR today essentially unrevealing) Ordered UGIS for AM Changed to PO protonix 20mg daily Eval of anemia per primary team Code(s): R11.10 - VOMITING, UNSPECIFIED
[2019-01-14] MEDS: ROSUVASTATIN CA 20 MG TABLET (FP) PO SCH (22:08)
[2019-01-14] MEDS: POLYETHYLENE GLYCOL 3350 119 GM BTL PO SCH (22:08)
[2019-01-14] MEDS: GABAPENTIN 300 MG CAPSULE (FP) PO SCH (22:12)
[2019-01-15 06:44] LABS: BASO % 1.1 % (0-2.0); EOS % 7.2 % (0-4.5); HEMATOCRIT 21.6 % (32.4-45.2); LYMPH % 37.2 % (8-40); MCH 25.9 pg (25.7-33.7); MCHC 31.4 g/dl (32.0-36.0); MEAN CELL VOLUME 82.4 fl (80-96); MEAN PLT VOLUME 8.7 fl (7.5-11.1); MONO % 10.9 % (3.8-10.2); NEUT % 43.6 % (42.8-82.8); PLATELET COUNT 234 K/MM3 (134-434); RBC 2.62 M/mm3 (3.60-5.2); RDW 16.5 % (11.6-15.6); WHITE BLOOD COUNT 5.3 K/mm3 (4.0-10.0)
[2019-01-15 07:00] LABS: ALBUMIN 2.6 g/dl (3.4-5.0); ALK PHOS 38 U/L (45-117); ANION GAP 7 MMOL/L (8-16); BILIRUBIN,TOTAL 0.1 mg/dL (0.2-1); BLOOD UREA NITROGEN 9 mg/dL (7-18); CHLORIDE 115 mmol/L (98-107); CO2 24 mmol/L (21-32); GLUCOSE,RANDOM 95 mg/dL (74-106); POTASSIUM 3.9 mmol/L (3.5-5.1); SGOT/AST 17 U/L (15-37); SGPT/ALT 13 U/L (13-61); SODIUM 145 mmol/L (136-145); TOT PROT 4.9 g/dl (6.4-8.2)
[2019-01-15 07:14] LABS: HEMOGLOBIN 6.8 GM/dL (10.7-15.3)
[2019-01-15] MEDS ORDERED: cefTRIAXone SODIUM 1 GM VIAL ONE (08:58)
[2019-01-15] MEDS ORDERED: DEXTROSE 5%-WATER - 50 ML IVPB ONE (08:58)
--- NOTE | 2019-01-15 09:22 | PN ---
Progress Note, Physician History of Present Illness: events noted Chart reviewed Seen in the medical ICU alert awake oriented 3 Feels tired and scared because of the GI bleeding Seen by gastroenterology No report of any confusion or seizure-like activity MRI results from the reviewed - Current Medication List Current Medications: Active Medications Apixaban (Eliquis -) 5 mg PO BID [facility] Last Admin: 01/14/19 22:09 Dose: 5 mg Carvedilol (Coreg -) 12.5 mg PO BID [facility] Last Admin: 01/14/19 22:07 Dose: 12.5 mg Enalapril Maleate (Vasotec -) 5 mg PO BID [facility] Last Admin: 01/14/19 22:10 Dose: 5 mg Gabapentin (Neurontin -) 300 mg PO HS [facility] Last Admin: 01/14/19 22:12 Dose: 300 mg Ceftriaxone Sodium 1 gm/ (Dextrose) 50 mls @ 100 mls/hr IVPB DAILY [facility] Last Admin: 01/14/19 11:50 Dose: 100 mls/hr Sodium Chloride (Normal Saline -) 1,000 mls @ 80 mls/hr IV ASDIR SAMANTHA Dextrose/Sodium Chloride (D5-Ns -) 1,000 mls @ 83 mls/hr IV ASDIR [facility] Last Admin: 01/14/19 11:50 Dose: 83 mls/hr Ondansetron HCl (Zofran Injection) 4 mg IVPUSH Q6H PRN PRN Reason: NAUSEA AND/OR VOMITING Oxybutynin Chloride (Ditropan -) 10 mg PO DAILY [facility] Last Admin: 01/14/19 11:49 Dose: 10 mg Pantoprazole Sodium (Protonix -) 20 mg PO DAILY [facility] Polyethylene Glycol (Miralax (For Daily Use) -) 17 gm PO DAILY [facility] Last Admin: 01/14/19 22:08 Dose: 17 gm Rosuvastatin Calcium (Crestor -) 20 mg PO HS [facility] Last Admin: 01/14/19 22:08 Dose: 20 mg - Objective Vital Signs: Vital Signs Temperature 97.7 F 01/15/19 02:00 Pulse Rate 81 01/15/19 06:00 Respiratory Rate 18 01/15/19 06:00 Blood Pressure 118/63 01/15/19 06:00 O2 Sat by Pulse Oximetry (%) 100 01/14/19 21:00 Constitutional: Yes: Well Nourished Eyes: Yes: WNL Neurological: Yes: WNL, Alert, Oriented, Babinski negative ...Motor Strength: WNL Labs: CBC, BMP 01/15/19 05:30 01/15/19 05:30 INR, PTT INR 1.17 (0.83-1.09) H 01/12/19 10:36 Problem List - Problems (1) TIA (transient ischemic attack) Assessment/Plan: resolved toxic metabolic encephalopathy Questionable TIA GI bleeding 1. Follow-up with gastroenterology. 2. Out of bed to chair. 3. Fall precautions. 4. Physical therapy. 5. DVT prophylaxis Code(s): G45.9 - TRANSIENT CEREBRAL ISCHEMIC ATTACK, UNSPECIFIED
[2019-01-15] MEDS: CARVEDILOL 25 MG TABLET (FP) PO SCH ×2 (09:55→22:23)
[2019-01-15] MEDS: OXYBUTYNIN CHLORIDE 5 MG TABLET PO SCH (09:55)
[2019-01-15] MEDS: PANTOPRAZOLE 20 MG TABLET (FP) PO SCH (09:55)
[2019-01-15] MEDS: CEFTRIAXONE 1 GM in DEXTROSE 5%-WATER - 50 ML IVPB SCH (09:55)
[2019-01-15] MEDS: ENALAPRIL MALEATE 5 MG TABLET (FP) PO SCH ×2 (09:55→22:24)
[2019-01-15] MEDS: APIXABAN 5 MG TABLET PO SCH ×2 (10:00→22:24)
[2019-01-15] MEDS: POLYETHYLENE GLYCOL 3350 119 GM BTL PO SCH (10:10)
--- NOTE | 2019-01-15 10:14 | PN ---
Progress Note (short form) - Note Progress Note: pt seen/ examined chart reviewed awake/ comfortable wants to eat. Vital Signs Temp 97.7 F 01/15/19 02:00 Pulse 81 01/15/19 06:00 Resp 18 01/15/19 06:00 BP 118/63 01/15/19 06:00 Pulse Ox 100 01/14/19 21:00 Intake & Output 01/14/19 01/14/19 01/15/19 11:59 23:59 11:59 Intake Total 1674 970 420 Balance 1674 970 420 Intake: IV 1294 920 420 D5-Ns - 1,000 ml @ 83 mls 920 420 /hr IV ASDIR SAMANTHA Rx#: [id number] Normal Saline - 1,000 ml 1000 @ 1000 mls/hr IV ASDIR STA Rx#:[id number] Normal Saline - 1,000 ml 294 @ 42 mls/hr IV ASDIR SAMANTHA Rx#:[id number] IVPB 50 Oral 380 Other: Voiding Method Bedpan Bedpan # Unmeasured Voids Void 1 2 Active Medications Apixaban (Eliquis -) 5 mg PO BID [facility] Last Admin: 01/14/19 22:09 Dose: 5 mg Carvedilol (Coreg -) 12.5 mg PO BID [facility] Last Admin: 01/15/19 09:55 Dose: 12.5 mg Enalapril Maleate (Vasotec -) 5 mg PO BID [facility] Last Admin: 01/15/19 09:55 Dose: 5 mg Gabapentin (Neurontin -) 300 mg PO HS [facility] Last Admin: 01/14/19 22:12 Dose: 300 mg Ceftriaxone Sodium 1 gm/ (Dextrose) 50 mls @ 100 mls/hr IVPB DAILY [facility] Last Admin: 01/15/19 09:55 Dose: 100 mls/hr Sodium Chloride (Normal Saline -) 1,000 mls @ 80 mls/hr IV ASDIR SAMANTHA Dextrose/Sodium Chloride (D5-Ns -) 1,000 mls @ 83 mls/hr IV ASDIR [facility] Last Admin: 01/14/19 11:50 Dose: 83 mls/hr Ondansetron HCl (Zofran Injection) 4 mg IVPUSH Q6H PRN PRN Reason: NAUSEA AND/OR VOMITING Oxybutynin Chloride (Ditropan -) 10 mg PO DAILY [facility] Last Admin: 01/15/19 09:55 Dose: 10 mg Pantoprazole Sodium (Protonix -) 20 mg PO DAILY [facility] Last Admin: 01/15/19 09:55 Dose: 20 mg Polyethylene Glycol (Miralax (For Daily Use) -) 17 gm PO DAILY [facility] Last Admin: 01/15/19 10:10 Dose: Not Given Rosuvastatin Calcium (Crestor -) 20 mg PO HS [facility] Last Admin: 01/14/19 22:08 Dose: 20 mg CBC, BMP 01/15/19 05:30 01/15/19 05:30 upper gi series - pending. Physical Exam. awake/comfortable. Lungs clear Abd- soft, obese, NT, BS+, not distended No edema Left arm weakness= same Facial droop same as previous alert/ awake PLAN stable continue present care no obvious bleeding repeat cbc now ugi series gi to follow may start feeding after ugi series will follow Problem List - Problems (1) TIA (transient ischemic attack) Code(s): G45.9 - TRANSIENT CEREBRAL ISCHEMIC ATTACK, UNSPECIFIED (2) Abdominal pain Code(s): R10.9 - UNSPECIFIED ABDOMINAL PAIN Qualifiers: Abdominal location: epigastric Qualified Code(s): R10.13 - Epigastric pain (3) Breast cancer Code(s): C50.919 - MALIGNANT NEOPLASM OF UNSP SITE OF UNSPECIFIED FEMALE BREAST Qualifiers: Breast location: unspecified site of breast (4) Carotid stenosis, right Code(s): I65.21 - OCCLUSION AND STENOSIS OF RIGHT CAROTID ARTERY (5) Cerebral arteriosclerosis with history of previous stroke Code(s): I67.2 - CEREBRAL ATHEROSCLEROSIS; Z86.73 - PRSNL HX OF TIA (TIA), AND CEREB INFRC W/O RESID DEFICITS (6) History of coronary artery disease Code(s): Z86.79 - PERSONAL HISTORY OF OTHER DISEASES OF THE CIRCULATORY SYSTEM (7) Hyperlipidemia Code(s): E78.5 - HYPERLIPIDEMIA, UNSPECIFIED Qualifiers: Hyperlipidemia type: pure hypercholesterolemia Qualified Code(s): E78.00 - Pure hypercholesterolemia, unspecified; E78.0 - Pure hypercholesterolemia (8) Hypertension Code(s): I10 - ESSENTIAL (PRIMARY) HYPERTENSION Qualifiers: Hypertension type: essential hypertension Qualified Code(s): I10 - Essential (primary) hypertension (9) UTI (urinary tract infection) Code(s): N39.0 - URINARY TRACT INFECTION, SITE NOT SPECIFIED
--- NOTE | 2019-01-15 13:06 | PN.GI ---
GI Progress Note Subjective: UGIS results noted: HH and narrowing at [place]. In review of images from EGD in 2010 and the one I performed 07/09, there is a schatzki's ring above her hiatal hernia. It was non obstructing. She denies dysphagia complaints.Is hungry and wants to eat Worsening anemia. No overt GI bleeding noted. BUN normal Abd US unrevealing - Objective Vital Signs: Vital Signs Temperature 97.5 F L 01/15/19 10:00 Pulse Rate 96 H 01/15/19 10:00 Respiratory Rate 23 H 01/15/19 10:00 Blood Pressure 159/61 01/15/19 10:00 O2 Sat by Pulse Oximetry (%) 100 01/15/19 09:00 Constitutional: Calm Eyes: No: Sclera Icterus Cardiovascular: Yes: Regular Rate and Rhythm ...Auscultate: Yes: Normoactive Bowel Sounds ...Percussion: No: Tympanitic Labs: CBC, BMP 01/15/19 05:30 01/15/19 05:30 INR, PTT INR 1.17 (0.83-1.09) H 01/12/19 10:36 Problem List - Problems (1) Vomiting Assessment/Plan: Trial of flull liquids then chopped as tolerated Protonix 20mg once daily Code(s): R11.10 - VOMITING, UNSPECIFIED (2) Anemia Assessment/Plan: No overt bleeding. No blood/melena noted on rectal exam Work-up per primary team Monitor for overt bleeding. If overt GI bleeding, NPO, Hold eliquis Code(s): D64.9 - ANEMIA, UNSPECIFIED Qualifiers: Anemia type: unspecified type Qualified Code(s): D64.9 - Anemia, unspecified
[2019-01-15] MEDS: DEXTROSE 5%-NORMAL SALINE 1,000 ML IV SCH (17:56)
[2019-01-15] MEDS ORDERED: PT OWN MED DRAWER 7, Y5N ONE (22:22)
[2019-01-15] MEDS: GABAPENTIN 300 MG CAPSULE (FP) PO SCH (22:23)
[2019-01-15] MEDS: ROSUVASTATIN CA 20 MG TABLET (FP) PO SCH (22:24)
[2019-01-16 06:59] LABS: ALBUMIN 2.7 g/dl (3.4-5.0); ALK PHOS 39 U/L (45-117); ANION GAP 7 MMOL/L (8-16); BILIRUBIN,TOTAL 0.1 mg/dL (0.2-1); BLOOD UREA NITROGEN 7 mg/dL (7-18); CALCIUM 8.3 mg/dL (8.5-10.1); CHLORIDE 112 mmol/L (98-107); CO2 25 mmol/L (21-32); EOS % 5.8 % (0-4.5); GLUCOSE,RANDOM 89 mg/dL (74-106); HEMATOCRIT 23.2 % (32.4-45.2); HEMOGLOBIN 7.2 GM/dL (10.7-15.3); LYMPH % 39.7 % (8-40); MCH 25.7 pg (25.7-33.7); MCHC 31.2 g/dl (32.0-36.0); MEAN CELL VOLUME 82.4 fl (80-96); MEAN PLT VOLUME 8.8 fl (7.5-11.1); MONO % 11.7 % (3.8-10.2); NEUT % 41.8 % (42.8-82.8); PLATELET COUNT 264 K/MM3 (134-434); RBC 2.81 M/mm3 (3.60-5.2); RDW 16.7 % (11.6-15.6); SGOT/AST 14 U/L (15-37); SGPT/ALT 13 U/L (13-61); SODIUM 144 mmol/L (136-145); TOT PROT 5.1 g/dl (6.4-8.2); WHITE BLOOD COUNT 5.4 K/mm3 (4.0-10.0)
--- NOTE | 2019-01-16 07:35 | PN.GI ---
GI Progress Note Subjective: Patient denies any abdominal pain / n/v / melena/ brrb. States she is hungry and is feeling much better today - Objective Vital Signs: Vital Signs Temperature 98.3 F 01/16/19 06:00 Pulse Rate 75 01/16/19 06:00 Respiratory Rate 15 01/16/19 06:00 Blood Pressure 157/74 01/16/19 06:00 O2 Sat by Pulse Oximetry (%) 100 01/15/19 23:21 Constitutional: Well Nourished Eyes: Yes: WNL HENT: Yes: WNL Neck: Yes: WNL Cardiovascular: Yes: WNL Respiratory: Yes: WNL Gastrointestinal Inspection: Yes: WNL ...Auscultate: Yes: Normoactive Bowel Sounds Edema: No Labs: CBC, BMP 01/16/19 05:30 01/16/19 05:30 INR, PTT INR 1.17 (0.83-1.09) H 01/12/19 10:36 Problem List - Problems (1) Anemia Assessment/Plan: history of hiatus hernia and schatzki's ring on egd in 2018 and imaging studies . No sign of GI bleed at this time. REC: advance diet PPI 40 mg iv qd monitor h/h qd while hospitalized heme evaluation will f/u Code(s): D64.9 - ANEMIA, UNSPECIFIED Qualifiers: Anemia type: unspecified type Qualified Code(s): D64.9 - Anemia, unspecified
[2019-01-16] MEDS ORDERED: DEXTROSE 5%-WATER - 50 ML IVPB ONE (09:12)
[2019-01-16] MEDS ORDERED: cefTRIAXone SODIUM 1 GM VIAL ONE (09:12)
[2019-01-16] MEDS: OXYBUTYNIN CHLORIDE 5 MG TABLET PO SCH (09:43)
[2019-01-16] MEDS: CEFTRIAXONE 1 GM in DEXTROSE 5%-WATER - 50 ML IVPB SCH (09:43)
[2019-01-16] MEDS: APIXABAN 5 MG TABLET PO SCH (09:43)
[2019-01-16] MEDS: ENALAPRIL MALEATE 5 MG TABLET (FP) PO SCH ×2 (09:43→21:47)
[2019-01-16] MEDS: CARVEDILOL 25 MG TABLET (FP) PO SCH ×2 (09:44→21:47)
[2019-01-16] MEDS: PANTOPRAZOLE 20 MG TABLET (FP) PO SCH (09:44)
[2019-01-16] MEDS: POLYETHYLENE GLYCOL 3350 119 GM BTL PO SCH (09:55)
--- NOTE | 2019-01-16 12:18 | CONSULT ---
Consult Consult Specialty:: Hematology Referred by:: ICU - medicine Reason for Consultation:: Anemia - History of Present Illness Chief Complaint: Anemia History of Present Illness: Patient with history of prior CVA. brought to ER with change in mental status, with concern of cerebrovacular event (on AC), noted to be anemic. Patient alert and oriented at this time, but unable to provide useful information about circumstances surrounding her admission. Denies any knowledge of prior hematological issues. Denies any history suggestive of hemorrhage (reports normal brown stools, no post-menopausal bleeding, no hematuria). No acute complaints presently. - History Source History Provided By: Patient, Medical Record Limitations to Obtaining History: Poor Historian - Past Medical History S[employer]IOR [employer]: Yes: CVA (? 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) Cardio/Vascular: Yes: CAD (with cardiac stenting x 2), Deep Vein Thrombosis, HTN , Hyperlipdemia Pulmonary: Yes: Pulmonary Embolus Gastrointestinal: Yes: Diverticulosis - Past Surgical History Past Surgical History: Yes: Hysterectomy (ELIZABETH/BSO), Mastectomy (and lumpectomy) , Stent - Alcohol/Substance Use Hx Alcohol Use: No History of Substance Use: reports: None - Smoking History Smoking history: Never smoked Have you smoked in the past 12 months: No Aproximately how many cigarettes per day: 0 If you are a former smoker, when did you quit?: 6 YEARS AGO - Social History 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 History of Recent Travel: No Home Medications - Allergies Allergies/Adverse Reactions: Allergies Allergy/AdvReac Type Severity Reaction Status Date / Time No Known Drug Allergies Allergy Verified 12/06/18 14:47 - Home Medications Home Medications: Ambulatory Orders Apixaban [Eliquis] 5 mg PO BID 08/25/17 Carvedilol [Coreg -] 25 mg PO BID tablet 08/28/17 Enalapril Maleate [Vasotec -] 5 mg PO BID tablet 08/28/17 Rosuvastatin [Crestor -] 20 mg PO HS tablet 08/28/17 Baclofen [Lioresal -] 10 mg PO BID 12/03/18 Calcium 500Mg/Vit-D 200 Units [Os-Jsoe 500+D -] 1 tab PO DAILY 12/03/18 Duloxetine HCl [Cymbalta -] 20 mg PO DAILY 12/03/18 Gabapentin [Neurontin] 300 mg PO HS 12/03/18 Omeprazole 40 mg PO DAILY 12/03/18 Oxybutynin Chloride [Oxybutynin Chloride ER] 10 mg PO DAILY 12/03/18 Benzocaine/Menthol [Cepacol Sore Throat Lozenge] 1 each PO DAILY PRN #30 lozenge 12/10/18 Family Disease History - Family Disease History Family Disease History: CA: Sister (6, alive: 1 with BCA), Other: Father ( 88: CHF), Mother (: 70's: CHF), Brother (6: : "heart problems"), Sister Other Family History: No family history of colorectal cancer Review of Systems - Review of Systems Constitutional: reports: No Symptoms. denies: Unintentional Wgt. Loss Eyes: reports: No Symptoms HENT: denies: Difficult Swallowing Neck: reports: No Symptoms. denies: Stiffness, Swollen Glands Cardiovascular: denies: Chest Pain, Edema, Shortness of Breath Respiratory: denies: Cough, Exercise Intolerance, SOB Gastrointestinal: denies: Abdominal Pain, Constipation, Diarrhea, Melena, Rectal Bleeding Genitourinary: reports: No Symptoms Breasts: reports: No Symptoms Reported Musculoskeletal: reports: No Symptoms Integumentary: reports: No Symptoms, Other (Alopecia - chronic) Neurological: reports: Pre-Existing Deficit Endocrine: reports: No Symptoms Hematology/Lymphatic: denies: Easily Bruised, Excessive Bleeding Psychiatric: reports: No Symptoms Physical Exam Vital Signs: Vital Signs Temperature 98.1 F 01/16/19 10:00 Pulse Rate 77 01/16/19 10:00 Respiratory Rate 18 01/16/19 10:00 Blood Pressure 136/67 01/16/19 10:00 O2 Sat by Pulse Oximetry (%) 97 01/16/19 09:00 Constitutional: Yes: Well Nourished Eyes: No: Sclera Icterus HENT: Yes: Atraumatic, Normocephalic Neck: No: Trachea Midline, Lymphadenopathy, Thyromegaly Cardiovascular: Yes: Regular Rate and Rhythm, Rub, S1, S2. No: Gallop, Murmur Respiratory: Yes: Regular, CTA Bilaterally Gastrointestinal: Yes: Normal Bowel Sounds, Soft. No: Hepatomegaly, Palpable Mass, Splenomegaly, Tenderness Breast(s): Yes: Other (Bilateral mastectomy) Musculoskeletal: No: Joint Swelling Extremities: No: Erythema Edema: No Peripheral Pulses WNL: Yes Integumentary: No: Bruising, Erythema, Venous Stasis Changes Neurological: Yes: Alert, Oriented Psychiatric: Yes: Alert, Oriented Labs: CBC, BMP 01/16/19 05:30 01/16/19 05:30 Assessment/Plan Microcytic anemia, developed over time, suggestive of acquired iron deficiency, likely from occult GI hemorrhage. Evaluated now by GI - apparently no active GI bleeding presently. Will repeat iron parameters (ferritin was low in July 2018) to ensure anemia still wholly attributable to iron deficiency, and if confirmed will recommend IV iron while admitted. Screen for plasma cell dyscrasia, but with low index of suspicion. On Eliquis 5mgs BID for history of thromboembolic events - if active GI bleeding again suspected then will have to review indication for ongoing anticoagulation. J witness status noted - will not accept red cell transfusion.
--- NOTE | 2019-01-16 13:23 | PN ---
Progress Note (short form) - Note Progress Note: Pt had bm today -- no blood in stools hungry no abd pain no distress Vital Signs - 24 hr 01/15/19 01/15/19 01/15/19 15:02 20:00 23:21 Temperature 97.2 F L 98.3 F Pulse Rate 87 Respiratory 20 16 20 Rate Blood Pressure 114/62 134/56 L O2 Sat by Pulse 100 Oximetry (%) 01/16/19 01/16/19 01/16/19 00:00 02:00 04:00 Temperature 97.9 F Pulse Rate 84 100 H 90 Respiratory 19 19 21 H Rate Blood Pressure 141/56 L 112/54 L 145/69 O2 Sat by Pulse Oximetry (%) 01/16/19 01/16/19 01/16/19 06:00 09:00 10:00 Temperature 98.3 F 98.1 F Pulse Rate 75 77 Respiratory 15 18 18 Rate Blood Pressure 157/74 136/67 O2 Sat by Pulse 97 Oximetry (%) Current Medications Generic Name Dose Route Start Last Admin Trade Name Lamineq PRN Reason Stop Dose Admin Apixaban 5 mg 01/12/19 22:00 01/16/19 09:43 Eliquis - PO 5 mg BID SAMANTHA Administration Carvedilol 12.5 mg 01/14/19 10:00 01/16/19 09:44 Coreg - PO 12.5 mg BID SAMANTHA Administration Enalapril Maleate 5 mg 01/12/19 22:00 01/16/19 09:43 Vasotec - PO 5 mg BID SAMANTHA Administration Gabapentin 300 mg 01/12/19 22:00 01/15/19 22:23 Neurontin - PO 300 mg HS SAMANTHA Administration Ceftriaxone Sodium 1 gm/ 50 mls @ 100 mls/hr 01/13/19 14:15 01/16/19 09:43 Dextrose IVPB 100 mls/hr DAILY SAMANTHA Administration Sodium Chloride 1,000 mls @ 80 mls/hr 01/14/19 08:38 01/15/19 17:55 Normal Saline - IV Not Given ASDIR SAMANTHA Dextrose/Sodium Chloride 1,000 mls @ 83 mls/hr 01/14/19 11:00 01/15/19 17:56 D5-Ns - IV 83 mls/hr ASDIR SAMANTHA Administration Ondansetron HCl 4 mg 01/14/19 10:32 Zofran Injection IVPUSH Q6H PRN NAUSEA AND/OR VOMITING Oxybutynin Chloride 10 mg 01/13/19 10:00 01/16/19 09:43 Ditropan - PO 10 mg DAILY SAMANTHA Administration Pantoprazole Sodium 20 mg 01/15/19 10:00 01/16/19 09:44 Protonix - PO 20 mg DAILY SAMANTHA Administration Polyethylene Glycol 17 gm 01/14/19 17:45 01/16/19 09:55 Miralax (For Daily Use) - PO 17 gm DAILY SAMANTHA Administration Rosuvastatin Calcium 20 mg 01/12/19 22:00 01/15/19 22:24 Crestor - PO 20 mg HS SAMANTHA Administration Laboratory Results - last 24 hr 01/15/19 01/16/19 01/16/19 17:33 05:30 05:30 WBC 5.4 RBC 2.81 L Hgb 7.2 L Hct 23.2 L MCV 82.4 MCH 25.7 MCHC 31.2 L RDW 16.7 H Plt Count 264 MPV 8.8 Absolute Neuts (auto) 2.3 Neutrophils % 41.8 L Lymphocytes % 39.7 Monocytes % 11.7 H Eosinophils % 5.8 H Basophils % 1.0 Nucleated RBC % 0 Sodium 144 Potassium 4.0 Chloride 112 H Carbon Dioxide 25 Anion Gap 7 L BUN 7 Creatinine 1.0 Creat Clearance w eGFR 54.81 POC Glucometer 174 Random Glucose 89 Calcium 8.3 L Total Bilirubin 0.1 L AST 14 L ALT 13 Alkaline Phosphatase 39 L Total Protein 5.1 L Albumin 2.7 L S1 S2 RRR Lungs clear Abd- soft, obese, NT, BS+, not distended No edema Left arm weakness= same Facial droop same as previous PLAN advance to chopped diet spoke with DR epperson Continue wth PPI HCT better decrease Eliquis -- pt is on anticoagulation for 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 and h/ o CVA - does not have Afib iron studies Pt does not want transfusion== she is Jehovah witness monitor Hb Problem List - Problems (1) TIA (transient ischemic attack) Code(s): G45.9 - TRANSIENT CEREBRAL ISCHEMIC ATTACK, UNSPECIFIED (2) Abdominal pain Code(s): R10.9 - UNSPECIFIED ABDOMINAL PAIN Qualifiers: Abdominal location: epigastric Qualified Code(s): R10.13 - Epigastric pain (3) Breast cancer Code(s): C50.919 - MALIGNANT NEOPLASM OF UNSP SITE OF UNSPECIFIED FEMALE BREAST Qualifiers: Breast location: unspecified site of breast (4) Carotid stenosis, right Code(s): I65.21 - OCCLUSION AND STENOSIS OF RIGHT CAROTID ARTERY (5) Cerebral arteriosclerosis with history of previous stroke Code(s): I67.2 - CEREBRAL ATHEROSCLEROSIS; Z86.73 - PRSNL HX OF TIA (TIA), AND CEREB INFRC W/O RESID DEFICITS (6) History of coronary artery disease Code(s): Z86.79 - PERSONAL HISTORY OF OTHER DISEASES OF THE CIRCULATORY SYSTEM (7) Hyperlipidemia Code(s): E78.5 - HYPERLIPIDEMIA, UNSPECIFIED Qualifiers: Hyperlipidemia type: pure hypercholesterolemia Qualified Code(s): E78.00 - Pure hypercholesterolemia, unspecified; E78.0 - Pure hypercholesterolemia (8) Hypertension Code(s): I10 - ESSENTIAL (PRIMARY) HYPERTENSION Qualifiers: Hypertension type: essential hypertension Qualified Code(s): I10 - Essential (primary) hypertension (9) UTI (urinary tract infection) Code(s): N39.0 - URINARY TRACT INFECTION, SITE NOT SPECIFIED
[2019-01-16] MEDS ORDERED: PT OWN MED DRAWER 7, Y5N ONE (21:44)
[2019-01-16] MEDS: APIXABAN 2.5 MG TABLET PO SCH (21:46)
[2019-01-16] MEDS: GABAPENTIN 300 MG CAPSULE (FP) PO SCH (21:47)
[2019-01-16] MEDS: ROSUVASTATIN CA 20 MG TABLET (FP) PO SCH (22:52)
--- NOTE | 2019-01-17 07:16 | PN.GI ---
GI Progress Note Subjective: NO COMPLAINTS / FEELING WELL DENIES MELENA/ BRBR / ABD PAIN / TOLERATING FULL DIET - Objective Vital Signs: Vital Signs Temperature 98.3 F 01/17/19 04:34 Pulse Rate 70 01/17/19 06:14 Respiratory Rate 16 01/17/19 06:14 Blood Pressure 151/89 01/17/19 06:14 O2 Sat by Pulse Oximetry (%) 97 01/16/19 21:05 Constitutional: Well Nourished, No Distress Eyes: Yes: WNL HENT: Yes: WNL Neck: Yes: WNL Cardiovascular: Yes: WNL, Regular Rate and Rhythm Respiratory: Yes: WNL, Regular, CTA Bilaterally Gastrointestinal Inspection: Yes: WNL, Other (NONTENDER) ...Auscultate: Yes: Normoactive Bowel Sounds Extremities: Yes: WNL Labs: CBC, BMP 01/16/19 05:30 INR, PTT INR 1.17 (0.83-1.09) H 01/12/19 10:36 Problem List - Problems (1) Anemia Assessment/Plan: history of hiatus hernia and schatzki's ring on egd in 2018 and imaging studies . No sign of GI bleed at this time. REC: diet as tolerated PPI 40 mg po qd monitor h/h qd while hospitalized heme evaluation will f/u Code(s): D64.9 - ANEMIA, UNSPECIFIED Qualifiers: Anemia type: unspecified type Qualified Code(s): D64.9 - Anemia, unspecified
[2019-01-17 07:34] LABS: HEMATOCRIT 22.5 % (32.4-45.2); MCH 25.6 pg (25.7-33.7); MCHC 31.3 g/dl (32.0-36.0); MEAN CELL VOLUME 81.9 fl (80-96); MEAN PLT VOLUME 9.2 fl (7.5-11.1); PLATELET COUNT 264 K/MM3 (134-434); RBC 2.75 M/mm3 (3.60-5.2); RDW 16.5 % (11.6-15.6); WHITE BLOOD COUNT 5.2 K/mm3 (4.0-10.0)
[2019-01-17] MEDS ORDERED: PT OWN MED DRAWER 7, Y5N ONE (09:04)
[2019-01-17] MEDS: ENALAPRIL MALEATE 5 MG TABLET (FP) PO SCH ×2 (09:21→21:32)
[2019-01-17] MEDS: PANTOPRAZOLE 20 MG TABLET (FP) PO SCH (09:21)
[2019-01-17] MEDS: OXYBUTYNIN CHLORIDE 5 MG TABLET PO SCH (09:21)
[2019-01-17] MEDS: APIXABAN 2.5 MG TABLET PO SCH ×2 (09:21→21:32)
[2019-01-17] MEDS: CARVEDILOL 25 MG TABLET (FP) PO SCH ×2 (09:21→21:32)
[2019-01-17] MEDS: POLYETHYLENE GLYCOL 3350 119 GM BTL PO SCH (09:22)
[2019-01-17] MEDS ORDERED: cefTRIAXone SODIUM 1 GM VIAL ONE (09:57)
[2019-01-17] MEDS ORDERED: DEXTROSE 5%-WATER - 50 ML IVPB ONE (09:57)
[2019-01-17] MEDS: CEFTRIAXONE 1 GM in DEXTROSE 5%-WATER - 50 ML IVPB SCH (10:04)
--- NOTE | 2019-01-17 10:50 | PN ---
Progress Note (short form) - Note Progress Note: Pt had bm today -- no blood in stools tolerated diet no abd pain no distress Vital Signs - 24 hr 01/16/19 01/17/19 01/17/19 21:05 04:34 06:14 Temperature 98.3 F Pulse Rate 71 70 Respiratory 18 14 16 Rate Blood Pressure 156/66 151/89 O2 Sat by Pulse 97 Oximetry (%) 01/17/19 01/17/19 01/17/19 09:00 10:00 14:00 Temperature 98 F Pulse Rate 66 75 Respiratory 18 20 Rate Blood Pressure 126/58 L 136/71 O2 Sat by Pulse 97 Oximetry (%) Current Medications Generic Name Dose Route Start Last Admin Trade Name Freq PRN Reason Stop Dose Admin Apixaban 2.5 mg 01/16/19 13:45 01/17/19 09:21 Eliquis - PO 2.5 mg BID SAMANTHA Administration Carvedilol 12.5 mg 01/14/19 10:00 01/17/19 09:21 Coreg - PO 12.5 mg BID SAMANTHA Administration Enalapril Maleate 5 mg 01/12/19 22:00 01/17/19 09:21 Vasotec - PO 5 mg BID SAMANTHA Administration Gabapentin 300 mg 01/12/19 22:00 01/16/19 21:47 Neurontin - PO 300 mg HS SAMANTHA Administration Ceftriaxone Sodium 1 gm/ 50 mls @ 100 mls/hr 01/13/19 14:15 01/17/19 10:04 Dextrose IVPB 100 mls/hr DAILY SAMANTHA Administration Ondansetron HCl 4 mg 01/14/19 10:32 Zofran Injection IVPUSH Q6H PRN NAUSEA AND/OR VOMITING Oxybutynin Chloride 10 mg 01/13/19 10:00 01/17/19 09:21 Ditropan - PO 10 mg DAILY SAMANTHA Administration Pantoprazole Sodium 20 mg 01/15/19 10:00 01/17/19 09:21 Protonix - PO 20 mg DAILY SAMANTHA Administration Polyethylene Glycol 17 gm 01/14/19 17:45 01/17/19 09:22 Miralax (For Daily Use) - PO 17 gm DAILY SAMANTHA Administration Rosuvastatin Calcium 20 mg 01/12/19 22:00 01/16/19 22:52 Crestor - PO 20 mg HS SAMANTHA Administration Laboratory Results - last 24 hr 01/17/19 01/17/19 01/17/19 05:30 05:30 05:30 WBC 5.2 RBC 2.75 L Hgb 7.0 L Hct 22.5 L MCV 81.9 MCH 25.6 L MCHC 31.3 L RDW 16.5 H Plt Count 264 MPV 9.2 Retic Count 2.93 H Ferritin 7.1 L S1 S2 RRR Lungs clear Abd- soft, obese, NT, BS+, not distended No edema Left arm weakness= same Facial droop same as previous PLAN tolerating diet venofer Continue wth PPI HCT better decrease Eliquis -- pt is on anticoagulation for 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 and h/ o CVA - does not have Afib iron studies Pt does not want transfusion== she is Jehovah witness monitor Hb Problem List - Problems (1) TIA (transient ischemic attack) Code(s): G45.9 - TRANSIENT CEREBRAL ISCHEMIC ATTACK, UNSPECIFIED (2) Abdominal pain Code(s): R10.9 - UNSPECIFIED ABDOMINAL PAIN Qualifiers: Abdominal location: epigastric Qualified Code(s): R10.13 - Epigastric pain (3) Breast cancer Code(s): C50.919 - MALIGNANT NEOPLASM OF UNSP SITE OF UNSPECIFIED FEMALE BREAST Qualifiers: Breast location: unspecified site of breast (4) Carotid stenosis, right Code(s): I65.21 - OCCLUSION AND STENOSIS OF RIGHT CAROTID ARTERY (5) Cerebral arteriosclerosis with history of previous stroke Code(s): I67.2 - CEREBRAL ATHEROSCLEROSIS; Z86.73 - PRSNL HX OF TIA (TIA), AND CEREB INFRC W/O RESID DEFICITS (6) History of coronary artery disease Code(s): Z86.79 - PERSONAL HISTORY OF OTHER DISEASES OF THE CIRCULATORY SYSTEM (7) Hyperlipidemia Code(s): E78.5 - HYPERLIPIDEMIA, UNSPECIFIED Qualifiers: Hyperlipidemia type: pure hypercholesterolemia Qualified Code(s): E78.00 - Pure hypercholesterolemia, unspecified; E78.0 - Pure hypercholesterolemia (8) Hypertension Code(s): I10 - ESSENTIAL (PRIMARY) HYPERTENSION Qualifiers: Hypertension type: essential hypertension Qualified Code(s): I10 - Essential (primary) hypertension (9) UTI (urinary tract infection) Code(s): N39.0 - URINARY TRACT INFECTION, SITE NOT SPECIFIED
[2019-01-17] MEDS ORDERED: IRON SUCROSE INJECTION 200 MG in SODIUM CHLORIDE 90 ML IVPB ONE (11:30)
--- NOTE | 2019-01-17 14:11 | PN ---
Progress Note (short form) - Note Progress Note: Patient seen in follow up. No events overnight. No new complaints at this time. Inpatient Meds reviewed. Current Medications Generic Name Dose Route Start Last Admin Trade Name Fre[place] PRN Reason Stop Dose Admin Apixaban 2.5 mg 01/16/19 13:45 01/17/19 09:21 Eliquis - PO 2.5 mg BID SAMANTHA Administration Carvedilol 12.5 mg 01/14/19 10:00 01/17/19 09:21 Coreg - PO 12.5 mg BID SAMANTHA Administration Enalapril Maleate 5 mg 01/12/19 22:00 01/17/19 09:21 Vasotec - PO 5 mg BID SAMANTHA Administration Gabapentin 300 mg 01/12/19 22:00 01/16/19 21:47 Neurontin - PO 300 mg HS SAMANTHA Administration Ceftriaxone Sodium 1 gm/ 50 mls @ 100 mls/hr 01/13/19 14:15 01/17/19 10:04 Dextrose IVPB 100 mls/hr DAILY SAMANTHA Administration Ondansetron HCl 4 mg 01/14/19 10:32 Zofran Injection IVPUSH Q6H PRN NAUSEA AND/OR VOMITING Oxybutynin Chloride 10 mg 01/13/19 10:00 01/17/19 09:21 Ditropan - PO 10 mg DAILY SAMANTHA Administration Pantoprazole Sodium 20 mg 01/15/19 10:00 01/17/19 09:21 Protonix - PO 20 mg DAILY SAMANTHA Administration Polyethylene Glycol 17 gm 01/14/19 17:45 01/17/19 09:22 Miralax (For Daily Use) - PO 17 gm DAILY SAMANTHA Administration Rosuvastatin Calcium 20 mg 01/12/19 22:00 01/16/19 22:52 Crestor - PO 20 mg HS SAMANTHA Administration On examination: Last Vital Signs Temp Pulse Resp BP Pulse Ox 98 F 66 18 126/58 L 97 01/17/19 10:00 01/17/19 10:00 01/17/19 10:00 01/17/19 10:00 01/17/19 09:00 General: In no acute distress, sitting up in bed, obese. Extremities: No pallor or icterus. No pedal edema. CVS: S1, S2, regular, no gallop or murmur. Chest: good air entry bilaterally, clear Abdomen: Non-distended, non-tender. Neuro: Alert, oriented. Labs: CBC, BMP 01/17/19 05:30 01/16/19 05:30 Assessment. Microcytic anemia, developed over time, suggestive of acquired iron deficiency, likely from occult GI hemorrhage. Evaluated now by GI - apparently no active GI bleeding presently. Will repeat iron parameters (ferritin was low in July 2018) to ensure anemia still wholly attributable to iron deficiency, and if confirmed will recommend IV iron while admitted. Screen for plasma cell dyscrasia, but with low index of suspicion. On Eliquis 5mgs BID for history of thromboembolic events - if active GI bleeding again suspected then will have to review indication for ongoing anticoagulation. J witness status noted - will not accept red cell transfusion.
[2019-01-17] MEDS ORDERED: RANITIDINE HCL 150 MG TABLET (FP) PO ONE (17:14)
[2019-01-17] MEDS: GABAPENTIN 300 MG CAPSULE (FP) PO SCH (21:32)
[2019-01-17] MEDS: ROSUVASTATIN CA 20 MG TABLET (FP) PO SCH (21:33)
[2019-01-18 06:27] LABS: MCH 25.3 pg (25.7-33.7); MCHC 31.3 g/dl (32.0-36.0); MEAN PLT VOLUME 8.7 fl (7.5-11.1); PLATELET COUNT 299 K/MM3 (134-434); RBC 2.71 M/mm3 (3.60-5.2); RDW 16.6 % (11.6-15.6); WHITE BLOOD COUNT 6.1 K/mm3 (4.0-10.0)
[2019-01-18 07:29] LABS: HEMOGLOBIN 6.9 GM/dL (10.7-15.3)
[2019-01-18] MEDS: ENALAPRIL MALEATE 5 MG TABLET (FP) PO SCH ×2 (10:00→21:45)
[2019-01-18] MEDS: CARVEDILOL 25 MG TABLET (FP) PO SCH ×2 (10:00→21:45)
[2019-01-18] MEDS ORDERED: cefTRIAXone SODIUM 1 GM VIAL ONE (10:56)
[2019-01-18] MEDS ORDERED: DEXTROSE 5%-WATER - 50 ML IVPB ONE (10:56)
[2019-01-18] MEDS: CEFTRIAXONE 1 GM in DEXTROSE 5%-WATER - 50 ML IVPB SCH (10:59)
[2019-01-18] MEDS: APIXABAN 2.5 MG TABLET PO SCH ×2 (10:59→21:45)
[2019-01-18] MEDS: OXYBUTYNIN CHLORIDE 5 MG TABLET PO SCH (11:00)
[2019-01-18] MEDS: PANTOPRAZOLE 20 MG TABLET (FP) PO SCH (11:01)
[2019-01-18] MEDS: POLYETHYLENE GLYCOL 3350 119 GM BTL PO SCH (11:01)
--- NOTE | 2019-01-18 11:43 | PN ---
Progress Note (short form) - Note Progress Note: pt seen/ examined chart reviewed awake/ comfortable feels weak today but no distress denies cp/sob/abd pain No blood in stools Vital Signs Temp 98.6 F 01/18/19 06:00 Pulse 78 01/18/19 06:00 Resp 18 01/18/19 06:00 BP 153/62 01/18/19 06:00 Pulse Ox 98 01/17/19 21:00 Intake & Output 01/17/19 01/17/19 01/18/19 11:59 23:59 11:59 Intake Total 180 640 200 Balance 180 640 200 Intake: IVPB 200 Oral 180 440 200 Other: Voiding Method Toilet Toilet Toilet # Unmeasured Voids Void 5 1 1 Bowel Movement No Active Medications Al Hydroxide/Mg Hydroxide (Mylanta Oral Suspension -) 30 ml PO Q6H PRN PRN Reason: DYSPEPSIA Apixaban (Eliquis -) 2.5 mg PO BID [facility] Last Admin: 01/18/19 10:59 Dose: 2.5 mg Carvedilol (Coreg -) 12.5 mg PO BID [facility] Last Admin: 01/17/19 21:32 Dose: 12.5 mg Enalapril Maleate (Vasotec -) 5 mg PO BID [facility] Last Admin: 01/17/19 21:32 Dose: 5 mg Gabapentin (Neurontin -) 300 mg PO [facility] Last Admin: 01/17/19 21:32 Dose: 300 mg Ceftriaxone Sodium 1 gm/ (Dextrose) 50 mls @ 100 mls/hr IVPB DAILY [facility] Last Admin: 01/18/19 10:59 Dose: 100 mls/hr Ondansetron HCl (Zofran Injection) 4 mg IVPUSH Q6H PRN PRN Reason: NAUSEA AND/OR VOMITING Oxybutynin Chloride (Ditropan -) 10 mg PO DAILY [facility] Last Admin: 01/18/19 11:00 Dose: 10 mg Pantoprazole Sodium (Protonix -) 20 mg PO DAILY [facility] Last Admin: 01/18/19 11:01 Dose: 20 mg Polyethylene Glycol (Miralax (For Daily Use) -) 17 gm PO DAILY [facility] Last Admin: 01/18/19 11:01 Dose: Not Given Rosuvastatin Calcium (Crestor -) 20 mg PO [facility] Last Admin: 01/17/19 21:33 Dose: 20 mg CBC, BMP 01/18/19 05:30 01/16/19 05:30 Physical Exam S1 S2 RRR Lungs clear Abd- soft, obese, NT, BS+, not distended No edema Left arm weakness= same Facial droop same as previous PLAN tolerating diet venofer Continue wth PPI HCT same Continue Eliquis -- pt is on anticoagulation for 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 Renee . Will see pt Cerebral Catheterization/ Left carotid stenting as out pt -= per Vascular will follow
--- NOTE | 2019-01-18 11:53 | CON.CARD ---
Consult Consult Specialty:: Cardiology Referred by:: Shreya Best MD Reason for Consultation:: Anticoagulation, afib - History of Present Illness Chief Complaint: Altered mental status History of Present Illness: Patient is a 68 year old female well known to our service with underlying history of CAD s/p PCI/DEAN to mid LAD and in-stent restenosis, angina pectoris, HTN, CVA with residual left sided weakness, breast CA s/p lumpectomy, histor of DVT and PTE post IVC filter and on DOAC (Eliquis), LV diastolic dysfunction, carotid stenosis s/p CEA, hypercholesterolemia, schatzki ring and hiatal hernia on prior EGDs (most recently in 2018), and history of vasovagal syncope who initially presented with toxic metabolic encephelopathy referable to UTI, sensorium since improved to baseline. She underwent GI evaluation for iron- deficiency anemia including UGI series revealing hiatal hernia, GERD with narrowing at GEJ, she denies hematochezia or melena. 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) Cardio/Vascular: Yes: CAD (with cardiac stenting x 2), Deep Vein Thrombosis, HTN , Hyperlipdemia Pulmonary: Yes: Pulmonary Embolus Gastrointestinal: Yes: Diverticulosis - Past Surgical History Past Surgical History: Yes: Hysterectomy (ELIZABETH/BSO), Mastectomy (and lumpectomy) , Stent - Alcohol/Substance Use Hx Alcohol Use: No History of Substance Use: reports: None - Smoking History Smoking history: Never smoked Have you smoked in the past 12 months: No Aproximately how many cigarettes per day: 0 If you are a former smoker, when did you quit?: 6 YEARS AGO - Social History 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 History of Recent Travel: No Home Medications - Allergies Allergies/Adverse Reactions: Allergies Allergy/AdvReac Type Severity Reaction Status Date / Time No Known Drug Allergies Allergy Verified 12/06/18 14:47 - Home Medications Home Medications: Ambulatory Orders Apixaban [Eliquis] 5 mg PO BID 08/25/17 Carvedilol [Coreg -] 25 mg PO BID tablet 08/28/17 Enalapril Maleate [Vasotec -] 5 mg PO BID tablet 08/28/17 Rosuvastatin [Crestor -] 20 mg PO HS tablet 08/28/17 Baclofen [Lioresal -] 10 mg PO BID 12/03/18 Calcium 500Mg/Vit-D 200 Units [Os-Jose 500+D -] 1 tab PO DAILY 12/03/18 Duloxetine HCl [Cymbalta -] 20 mg PO DAILY 12/03/18 Gabapentin [Neurontin] 300 mg PO HS 12/03/18 Omeprazole 40 mg PO DAILY 12/03/18 Oxybutynin Chloride [Oxybutynin Chloride ER] 10 mg PO DAILY 12/03/18 Benzocaine/Menthol [Cepacol Sore Throat Lozenge] 1 each PO DAILY PRN #30 lozenge 12/10/18 Family Disease History - Family Disease History Family Disease History: CA: Sister (6, alive: 1 with BCA), Other: Father ( 88: CHF), Mother (: 70's: CHF), Brother (6: : "heart problems"), Sister Other Family History: No family history of colorectal cancer Review of Systems - Review of Systems Neurological: reports: Confusion Vital Signs: Vital Signs Temperature 98.6 F 01/18/19 06:00 Pulse Rate 78 01/18/19 06:00 Respiratory Rate 18 01/18/19 06:00 Blood Pressure 153/62 01/18/19 06:00 O2 Sat by Pulse Oximetry (%) 98 01/17/19 21:00 Constitutional: Yes: No Distress, Calm Neck: Yes: Supple Respiratory: Yes: Regular, Diminished Gastrointestinal: Yes: Soft, Hypoactive Bowel Sounds Cardiovascular: Yes: Regular Rate and Rhythm JVD: No Carotid Bruit: No Heart Sounds: Yes: S1, S2 Murmur: Yes: Systolic Murmur, Grade 1 Edema: No - Other Data Labs, Other Data: CBC, BMP 01/18/19 05:30 01/16/19 05:30 INR, PTT INR 1.17 (0.83-1.09) H 01/12/19 10:36 Problem List - Problems (1) Toxic metabolic encephalopathy Code(s): G92 - TOXIC ENCEPHALOPATHY (2) Anemia Code(s): D64.9 - ANEMIA, UNSPECIFIED Qualifiers: Anemia type: iron deficiency Iron deficiency anemia type: chronic blood loss Qualified Code(s): D50.0 - Iron deficiency anemia secondary to blood loss (chronic) (3) UTI (urinary tract infection) Code(s): N39.0 - URINARY TRACT INFECTION, SITE NOT SPECIFIED Qualifiers: Hematuria presence: without hematuria (4) Chronic anticoagulation Code(s): Z79.01 - BREAD DUMPER (CURRENT) USE OF ANTICOAGULANTS (5) Chronic ischemic right middle cerebral artery (MCA) stroke Code(s): I69.30 - UNSPECIFIED SEQUELAE OF CEREBRAL INFARCTION (6) Coronary artery disease Code(s): I25.10 - ATHSCL HEART DISEASE OF [place] CORONARY ARTERY W/O ANG PCTRS Qualifiers: Coronary Disease-Associated Artery/Lesion type: [place] artery [place] vs. transplanted heart: [place] heart Associated angina: without angina Qualified Code(s): I25.10 - Atherosclerotic heart disease of [place] coronary artery without angina pectoris (7) Hyperlipidemia Code(s): E78.5 - HYPERLIPIDEMIA, UNSPECIFIED Qualifiers: Hyperlipidemia type: pure hypercholesterolemia Qualified Code(s): E78.00 - Pure hypercholesterolemia, unspecified; E78.0 - Pure hypercholesterolemia (8) Hypertension Code(s): I10 - ESSENTIAL (PRIMARY) HYPERTENSION Qualifiers: Hypertension type: essential hypertension Qualified Code(s): I10 - Essential (primary) hypertension (9) S/P coronary artery stent placement Code(s): Z95.5 - PRESENCE OF CORONARY ANGIOPLASTY IMPLANT AND GRAFT Assessment/Plan 01/13/2019 Echo: Normal LV size and fxn, mod HARDY, mod TR RVSP 40-50 mmHg, mod MR , abnl LV compliance 1. Resolved toxic metabolic encephelopathy referable to UTI 2. CAD s/p PCI/DEAN, angina pectoris 3. HTN 4. Hypercholesterolemia 5. History of breast CA s/p lumpectomy 6. Previous history of syncope 7. History of DVT and PTE 8. Left subclavian steal suspect plan for stent as outpatient 9. Right carotid stenosis plan for angiogram 10. Iron deficiency anemia PLAN: 1. Complete abx course 2. GI and Heme recs noted, maintain PPI 3. Continue Carvedilol 12.5 bid and Enalapril 10 bid with uptitration as tolerated 4. Agree with decrease Eliquis 2.5 bid with PPI, hold 2 days prior to procedure and resume once post-op hemostasis achieved, declines transfusions 5. Continue Rosuvastatin 20 qhs 6. Thank you for consultative opportunity
--- NOTE | 2019-01-18 12:18 | PN ---
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 h/o non obstructing Schatzki 's ring above her hiatal hernia Selected Entries 01/18/19 01/18/19 06:00 09:00 Breakfast 75% Diet Tolerated Well Temperature 98.6 F Tolerating chopped diet/thin liquids. Suggest OOB for meals, chew well, alternate solids with liquids and complete meal with liquids. Upright for at least an hour after meals.
[2019-01-18 13:16] LABS: ALBUMIN 2.8 g/dl (3.4-5.0); ALK PHOS 42 U/L (45-117); ANION GAP 4 MMOL/L (8-16); BILIRUBIN,TOTAL 0.1 mg/dL (0.2-1); BLOOD UREA NITROGEN 9 mg/dL (7-18); CALCIUM 8.9 mg/dL (8.5-10.1); CHLORIDE 108 mmol/L (98-107); CO2 28 mmol/L (21-32); GLUCOSE,RANDOM 85 mg/dL (74-106); POTASSIUM 4.1 mmol/L (3.5-5.1); SGOT/AST 13 U/L (15-37); SGPT/ALT 14 U/L (13-61); SODIUM 140 mmol/L (136-145); TOT PROT 5.6 g/dl (6.4-8.2)
[2019-01-18] MEDS ORDERED: IRON SUCROSE INJECTION 100 MG in SODIUM CHLORIDE 95 ML IVPB ONE (16:24)
--- NOTE | 2019-01-18 17:27 | PN ---
Physical Exam: SUBJECTIVE: Patient seen and examined at beside. Tried to walk today but became light-headed. Otherwise feels well. OBJECTIVE: Vital Signs Period Temp Pulse Resp BP Sys/Mccollum Pulse Ox Last 24 Hr 98 F-98.6 F 75-82 18-20 143-153/62-70 98-98 GENERAL: The patient is awake, alert, and fully oriented, in no acute distress. EYES: extraocular movements intact, sclera anicteric, conjunctiva clear. ENT: Ears normal, nares patent LUNGS: Breath sounds equal, clear to auscultation bilaterally HEART: Regular rate and rhythm, S1, S2 ABDOMEN: Soft, nondistended, normoactive bowel sounds EXTREMITIES: warm, well-perfused NEUROLOGICAL: Cranial nerves II through XII grossly intact. Normal speech, gait not observed. PSYCH: Normal mood, normal affect. SKIN: Warm, dry Laboratory Results - last 24 hr 01/17/19 01/18/19 01/18/19 05:30 05:30 12:25 WBC 6.1 RBC 2.71 L Hgb 6.9 L* Hct 22.0 L MCV 81.0 MCH 25.3 L MCHC 31.3 L RDW 16.6 H Plt Count 299 MPV 8.7 Sodium 140 Potassium 4.1 Chloride 108 H Carbon Dioxide 28 Anion Gap 4 L BUN 9 Creatinine 1.0 Creat Clearance w eGFR 54.81 Random Glucose 85 Calcium 8.9 Iron 14 L TIBC 274 Iron Saturation 5 L Total Bilirubin 0.1 L AST 13 L ALT 14 Alkaline Phosphatase 42 L Total Protein 5.6 L Albumin 2.8 L Active Medications Generic Name Dose Route Start Last Admin Trade Name Freq PRN Reason Stop Dose Admin Al Hydroxide/Mg Hydroxide 30 ml 01/17/19 18:07 Mylanta Oral Suspension - PO Q6H PRN DYSPEPSIA Apixaban 2.5 mg 01/16/19 13:45 01/18/19 10:59 Eliquis - PO 2.5 mg BID [facility]A Administration Carvedilol 12.5 mg 01/14/19 10:00 01/18/19 10:00 Coreg - PO Not Given BID [facility]AN[facility]A Cyanocobalamin 1,000 mcg 01/18/19 16:30 Vitamin B12 Injection - IM 01/22/19 10:01 DAILY [facility]AN[facility]A Enalapril Maleate 5 mg 01/12/19 22:00 01/18/19 10:00 Vasotec - PO Not Given BID [facility]AN[facility]A Folic Acid 1 mg 01/19/19 10:00 Folic Acid - PO DAILY [facility] Gabapentin 300 mg 01/12/19 22:00 01/17/19 21:32 Neurontin - PO 300 mg HS [facility]ANTHA Administration Ceftriaxone Sodium 1 gm/ 50 mls @ 100 mls/hr 01/13/19 14:15 01/18/19 10:59 Dextrose IVPB 100 mls/hr DAILY [facility]AN[facility]A Administration Iron Sucrose 100 mg/ Sodium 100 mls @ 200 mls/hr 01/18/19 16:30 Chloride IVPB 01/25/19 10:29 DAILY [facility]A Ondansetron HCl 4 mg 01/14/19 10:32 Zofran Injection IVPUSH Q6H PRN NAUSEA AND/OR VOMITING Oxybutynin Chloride 10 mg 01/13/19 10:00 01/18/19 11:00 Ditropan - PO 10 mg DAILY [facility]A Administration Pantoprazole Sodium 20 mg 01/15/19 10:00 01/18/19 11:01 Protonix - PO 20 mg DAILY [facility]AN[facility]A Administration Polyethylene Glycol 17 gm 01/14/19 17:45 01/18/19 11:01 Miralax (For Daily Use) - PO Not Given DAILY [facility]A Rosuvastatin Calcium 20 mg 01/12/19 22:00 01/17/19 21:33 Crestor - PO 20 mg HS [facility]ANTHA Administration ASSESSMENT/PLAN: 68 F with h/o breast CA, PE/DVT and stroke in 2005 residual left sided hemiplegia presenting to ED with AMS. Heme consulted for anemia. Microcytic anemia Hx of PE/DVT Hx of stroke w/ L sided hemiplegia -Pt has anemia that is suggestive of iron deficiency anemia. Pt is Restorationist - No transfusions. -Will give IV iron 100mg x 8 days for a total of 1000 total this admission. Will also give vit b12. -Will consider EPO treatment -C/w Dom for now -GI on board Visit type - Emergency Visit Emergency Visit: Yes ED Registration Date: 01/12/19 Care time: The patient presented to the Emergency Department on the above date and was hospitalized for further evaluation of their emergent condition. - New Patient This patient is new to me today: Yes Date on this admission: 01/18/19 - Critical Care Critical Care patient: No
--- NOTE | 2019-01-18 17:31 | PN.GI ---
GI Progress Note Subjective: Pt seen/examined at bedside, feeling better, denies dysphagia, abdominal pain, n /v, tolerating diet. Reports brown bm today. No blood. - Objective Vital Signs: Vital Signs Temperature 98.6 F 01/18/19 06:00 Pulse Rate 78 01/18/19 06:00 Respiratory Rate 18 01/18/19 06:00 Blood Pressure 153/62 01/18/19 06:00 O2 Sat by Pulse Oximetry (%) 98 01/18/19 09:00 Constitutional: Well Nourished, No Distress Cardiovascular: Yes: WNL, Regular Rate and Rhythm Respiratory: Yes: WNL, Regular, CTA Bilaterally Gastrointestinal Inspection: Yes: WNL ...Palpate: Yes: Other (Abd soft, nt, nd) Labs: CBC, BMP 01/18/19 05:30 01/18/19 12:25 INR, PTT INR 1.17 (0.83-1.09) H 01/12/19 10:36 Problem List - Problems (1) Vomiting Assessment/Plan: 68yo female h/o CAD S/P PCI, CVA, with schatzki ring and hiatal hernia on prior EGDs (most recently in 2018) s/p UGI series revealing hiatal hernia with narrowing at GEJ. Pt feeling better, denies dysphagia or n/v. No sign of GI bleed at this time. Prior colonoscopy in 2018. -Continue diet as tolerated -PPI daily -Antireflux measures -Monitor Hb -Follow up iron studies/ferritin -Further recommendations per hematology monitor h/h qd while hospitalized heme evaluation will f/u Code(s): R11.10 - VOMITING, UNSPECIFIED
[2019-01-18] MEDS: IRON SUCROSE INJECTION 100 MG in SODIUM CHLORIDE 95 ML IVPB SCH (18:27)
--- NOTE | 2019-01-18 20:18 | PN ---
Progress Note (short form) - Note Progress Note: Patient seen and exained Fels better reports coffee ground emitus at home prior to admiassion Last Vital Signs Temp Pulse Resp BP Pulse Ox 98.4 F 80 18 116/91 98 01/18/19 22:00 01/18/19 22:00 01/18/19 22:00 01/18/19 22:00 01/18/19 20:40 Cor: RSR, No murmurs, No gallops Lungs: Clear to P&A Abd: Soft, Normal bowel sounds, No organomegaly Ext:No significant edema Abnormal Lab Results 01/17/19 01/18/19 01/18/19 05:30 05:30 12:25 RBC 2.71 L Hgb 6.9 L* Hct 22.0 L MCH 25.3 L MCHC 31.3 L RDW 16.6 H Chloride 108 H Anion Gap 4 L Iron 14 L Iron Saturation 5 L Total Bilirubin 0.1 L AST 13 L Alkaline Phosphatase 42 L Total Protein 5.6 L Albumin 2.8 L Active Medications Al Hydroxide/Mg Hydroxide (Mylanta Oral Suspension -) 30 ml PO Q6H PRN PRN Reason: DYSPEPSIA Last Admin: 01/18/19 20:23 Dose: 30 ml Apixaban (Eliquis -) 2.5 mg PO BID [facility] Carvedilol (Coreg -) 12.5 mg PO BID [facility] Cyanocobalamin (Vitamin B12 Injection -) 1,000 mcg IM DAILY [facility] Stop: 01/22/19 10:01 Last Admin: 01/18/19 22:41 Dose: 1,000 mcg Enalapril Maleate (Vasotec -) 5 mg PO BID [facility]A Epoetin John (Procrit -) 20,000 unit SQ DAILY [facility] Stop: 01/23/19 10:01 Folic Acid (Folic Acid -) 1 mg PO DAILY [facility] Gabapentin (Neurontin -) 300 mg PO HS [facility] Iron Sucrose 100 mg/ Sodium (Chloride) 100 mls @ 200 mls/hr IVPB DAILY [facility] Stop: 01/25/19 10:29 Last Admin: 01/18/19 18:27 Dose: 200 mls/hr Ceftriaxone Sodium 1 gm/ (Dextrose) 50 mls @ 100 mls/hr IVPB DAILY [facility] Ondansetron HCl (Zofran Injection) 4 mg IVPUSH Q6H PRN PRN Reason: NAUSEA AND/OR VOMITING Oxybutynin Chloride (Ditropan -) 10 mg PO DAILY [facility] Pantoprazole Sodium (Protonix -) 20 mg PO DAILY [facility] Polyethylene Glycol (Miralax (For Daily Use) -) 17 gm PO DAILY [facility] Rosuvastatin Calcium (Crestor -) 20 mg PO HS SAMANTHA a/p 67 yo F with h/o HTN, HLD, NIDDM, CKD, CAD s/p R CEA, [place] s/p stent placement, CVA, BRCA+ Breast Ca ( Tamoxifen) , PE, and DVTs, who presents with near syncopal episode. 1. Breast cancer h/o T1c , N0, ER+/MI-/HEr2 + by FISH ,stage IA,poorly differentiated right breast cancer 01/05, while on arimidex for early stage left breast cancer. .h/o b /l mastectomies 02/04. h/o BRCA positivity h/o Abhay/BSO at age 26 Due to multiple comorbidities including moderate to severe LV dysfunction ( LVEF 25% at that time) patient was not a candidate for Her 2 based therapy. She was switched to tamoxifen stable on tamoxifen 2. Anemia, iron deficiency, jehovahs witness Currently she is refusing PRBCs. She stated she may change her decision in future based on circumstances. At this time she is refusing PRBCS even if severe anemia. Discussed risks/benefits of procrit and complications including thrombotic CVA/I/HTN etc. She understands benefits/risks of procrit and is consenting to it as she does not want PRBCs at this time will give iv iron 100mg daily x 8 days, B12, folate add procrit 20,000 U SC daily 3. UTI on rocephin
[2019-01-18] MEDS: MAG HYDROX/AL HYDROX/SIMETH 30 ML UNIT-DOSE CUP PO PRN (20:23)
[2019-01-18] MEDS ORDERED: PT OWN MED DRAWER 7, Y5N ONE (21:36)
[2019-01-18] MEDS: ROSUVASTATIN CA 20 MG TABLET (FP) PO SCH (21:45)
[2019-01-18] MEDS: GABAPENTIN 300 MG CAPSULE (FP) PO SCH (21:45)
[2019-01-18] MEDS: CYANOCOBALAMIN (VITAMIN B-12) 1000 MCG/1 ML VIAL IM SCH (22:41)
[2019-01-18] MEDS ORDERED: ONDANSETRON 4 MG/2 ML VIAL IVPUSH PRN (23:55)
[2019-01-19 07:38] LABS: BASO % 1.2 % (0-2.0); EOS % 4.8 % (0-4.5); HEMATOCRIT 23.1 % (32.4-45.2); HEMOGLOBIN 7.2 GM/dL (10.7-15.3); LYMPH % 36.4 % (8-40); MCH 25.2 pg (25.7-33.7); MCHC 31.1 g/dl (32.0-36.0); MEAN CELL VOLUME 81.2 fl (80-96); MEAN PLT VOLUME 8.6 fl (7.5-11.1); NEUT % 44.6 % (42.8-82.8); PLATELET COUNT 338 K/MM3 (134-434); RBC 2.84 M/mm3 (3.60-5.2); RDW 16.8 % (11.6-15.6); WHITE BLOOD COUNT 6.2 K/mm3 (4.0-10.0)
[2019-01-19] MEDS ORDERED: ENALAPRIL MALEATE 5 MG TABLET (FP) PO SCH (10:00)
[2019-01-19] MEDS: APIXABAN 2.5 MG TABLET PO SCH ×2 (10:08→21:49)
[2019-01-19] MEDS: FOLIC ACID 1 MG TABLET (FP) PO SCH (10:08)
[2019-01-19] MEDS: OXYBUTYNIN CHLORIDE 5 MG TABLET PO SCH (10:09)
[2019-01-19] MEDS: PANTOPRAZOLE 20 MG TABLET (FP) PO SCH (10:09)
[2019-01-19] MEDS: CYANOCOBALAMIN (VITAMIN B-12) 1000 MCG/1 ML VIAL IM SCH (10:13)
[2019-01-19] MEDS: POLYETHYLENE GLYCOL 3350 119 GM BTL PO SCH (10:23)
[2019-01-19] MEDS: CARVEDILOL 12.5 MG TABLET (FP) PO SCH ×2 (11:00→21:49)
[2019-01-19] MEDS: EPOETIN ALFA 20,000 UNIT/1 ML VIAL SQ SCH (12:24)
[2019-01-19] MEDS: IRON SUCROSE INJECTION 100 MG in SODIUM CHLORIDE 95 ML IVPB SCH (12:25)
[2019-01-19] MEDS ORDERED: DEXTROSE 5%-WATER - 50 ML IVPB ONE (12:33)
[2019-01-19] MEDS ORDERED: cefTRIAXone SODIUM 1 GM VIAL ONE (12:33)
[2019-01-19] MEDS: CEFTRIAXONE 1 GM in DEXTROSE 5%-WATER - 50 ML IVPB SCH (13:46)
--- NOTE | 2019-01-19 13:57 | PN ---
Progress Note (short form) - Note Progress Note: Pt had bm today -- no blood in stools no complaints feeling well Vital Signs - 24 hr 01/18/19 01/18/19 01/18/19 19:07 20:00 20:25 Temperature Pulse Rate 88 79 92 H Respiratory 18 14 20 Rate Blood Pressure 126/54 L 146/67 141/83 O2 Sat by Pulse Oximetry (%) 01/18/19 01/18/19 01/18/19 20:40 21:45 22:00 Temperature 98.4 F Pulse Rate 82 80 Respiratory 18 17 18 Rate Blood Pressure 147/69 116/91 O2 Sat by Pulse 98 Oximetry (%) 01/19/19 01/19/19 01/19/19 02:00 06:00 10:00 Temperature 98.1 F 98.3 F 99.0 F Pulse Rate 85 89 63 Respiratory 18 18 16 Rate Blood Pressure 149/68 104/45 L 105/40 L O2 Sat by Pulse Oximetry (%) 01/19/19 14:57 Temperature 98.2 F Pulse Rate 83 Respiratory 18 Rate Blood Pressure 111/52 L O2 Sat by Pulse Oximetry (%) Current Medications Generic Name Dose Route Start Last Admin Trade Name Freq PRN Reason Stop Dose Admin Al Hydroxide/Mg Hydroxide 30 ml 01/17/19 18:07 01/19/19 13:59 Mylanta Oral Suspension - PO 30 ml Q6H PRN Administration DYSPEPSIA Apixaban 2.5 mg 01/19/19 10:00 01/19/19 10:08 Eliquis - PO 2.5 mg BID [facility]ANTHA Administration Carvedilol 12.5 mg 01/19/19 10:00 01/19/19 11:00 Coreg - PO Not Given BID [facility]A Cyanocobalamin 1,000 mcg 01/18/19 16:30 01/19/19 10:13 Vitamin B12 Injection - IM 01/22/19 10:01 1,000 mcg DAILY [facility]AN[facility]A Administration Enalapril Maleate 5 mg 01/20/19 10:00 Vasotec - PO DAILY [facility]ANTHA Epoetin John 20,000 unit 01/19/19 10:00 01/19/19 12:24 Procrit - SQ 01/23/19 10:01 20,000 unit DAILY [facility]ANTHA Administration Folic Acid 1 mg 01/19/19 10:00 04/30/19 10:08 Folic Acid - PO 1 mg DAILY [facility]ANTHA Administration Gabapentin 300 mg 01/19/19 22:00 Neurontin - PO HS [facility]ANTHA Iron Sucrose 100 mg/ Sodium 100 mls @ 200 mls/hr 01/18/19 16:30 01/19/19 12: 25 Chloride IVPB 01/25/19 10:29 200 mls/hr DAILY [facility]AN[facility]A Administration Ceftriaxone Sodium 1 gm/ 50 mls @ 100 mls/hr 01/19/19 10:00 01/19/19 13:46 Dextrose IVPB 100 mls/hr DAILY [facility]AN[facility]A Administration Ondansetron HCl 4 mg 01/18/19 23:55 Zofran Injection IVPUSH Q6H PRN NAUSEA AND/OR VOMITING Oxybutynin Chloride 10 mg 01/19/19 10:00 01/19/19 10:09 Ditropan - PO 10 mg DAILY [facility]A Administration Pantoprazole Sodium 20 mg 01/19/19 10:00 01/19/19 10:09 Protonix - PO 20 mg DAILY [facility]A Administration Polyethylene Glycol 17 gm 01/19/19 10:00 01/19/19 10:23 Miralax (For Daily Use) - PO Not Given DAILY [facility]A Rosuvastatin Calcium 20 mg 01/19/19 22:00 Crestor - PO HS SAMANTHA Laboratory Results - last 24 hr 01/19/19 06:30 WBC 6.2 RBC 2.84 L Hgb 7.2 L Hct 23.1 L MCV 81.2 MCH 25.2 L MCHC 31.1 L RDW 16.8 H Plt Count 338 MPV 8.6 Absolute Neuts (auto) 2.8 Neutrophils % 44.6 Lymphocytes % 36.4 Monocytes % 13.0 H Eosinophils % 4.8 H Basophils % 1.2 Nucleated RBC % 4 H S1 S2 RRR Lungs clear Abd- soft, obese, NT, BS+, not distended No edema Left arm weakness= same Facial droop same as previous PLAN tolerating diet venofer x 8 days total Continue wth PPI procrit per Hematology HCT better decrease Eliquis -- pt is on anticoagulation for 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 and h/ o CVA - does not have Afib iron studies Pt does not want transfusion== she is Jehovah witness monitor Hb Problem List - Problems (1) TIA (transient ischemic attack) Code(s): G45.9 - TRANSIENT CEREBRAL ISCHEMIC ATTACK, UNSPECIFIED (2) Abdominal pain Code(s): R10.9 - UNSPECIFIED ABDOMINAL PAIN Qualifiers: Abdominal location: epigastric Qualified Code(s): R10.13 - Epigastric pain (3) Breast cancer Code(s): C50.919 - MALIGNANT NEOPLASM OF UNSP SITE OF UNSPECIFIED FEMALE BREAST Qualifiers: Breast location: unspecified site of breast (4) Carotid stenosis, right Code(s): I65.21 - OCCLUSION AND STENOSIS OF RIGHT CAROTID ARTERY (5) Cerebral arteriosclerosis with history of previous stroke Code(s): I67.2 - CEREBRAL ATHEROSCLEROSIS; Z86.73 - PRSNL HX OF TIA (TIA), AND CEREB INFRC W/O RESID DEFICITS (6) History of coronary artery disease Code(s): Z86.79 - PERSONAL HISTORY OF OTHER DISEASES OF THE CIRCULATORY SYSTEM (7) Hyperlipidemia Code(s): E78.5 - HYPERLIPIDEMIA, UNSPECIFIED Qualifiers: Hyperlipidemia type: pure hypercholesterolemia Qualified Code(s): E78.00 - Pure hypercholesterolemia, unspecified; E78.0 - Pure hypercholesterolemia (8) Hypertension Code(s): I10 - ESSENTIAL (PRIMARY) HYPERTENSION Qualifiers: Hypertension type: essential hypertension Qualified Code(s): I10 - Essential (primary) hypertension (9) UTI (urinary tract infection) Code(s): N39.0 - URINARY TRACT INFECTION, SITE NOT SPECIFIED Qualifiers: Hematuria presence: without hematuria
[2019-01-19] MEDS: MAG HYDROX/AL HYDROX/SIMETH 30 ML UNIT-DOSE CUP PO PRN (13:59)
--- NOTE | 2019-01-19 14:59 | PN ---
Physical Exam: SUBJECTIVE: Patient seen and examined at bedside. Feeling better today. Has not ambulated yet today. OBJECTIVE: Vital Signs Temperature 99.0 F 01/19/19 10:00 Pulse Rate 63 01/19/19 10:00 Respiratory Rate 16 01/19/19 10:00 Blood Pressure 105/40 L 01/19/19 10:00 O2 Sat by Pulse Oximetry (%) 98 01/18/19 20:40 GENERAL: The patient is awake, alert, and fully oriented, in no acute distress. EYES: extraocular movements intact, sclera anicteric, conjunctiva clear. ENT: Ears normal, nares patent LUNGS: Breath sounds equal, clear to auscultation bilaterally HEART: Regular rate and rhythm, S1, S2 ABDOMEN: Soft, nondistended, normoactive bowel sounds EXTREMITIES: warm, well-perfused NEUROLOGICAL: Cranial nerves II through XII grossly intact. Normal speech, gait not observed. PSYCH: Normal mood, normal affect. SKIN: Warm, dry Laboratory Results - last 24 hr 01/19/19 06:30 WBC 6.2 RBC 2.84 L Hgb 7.2 L Hct 23.1 L MCV 81.2 MCH 25.2 L MCHC 31.1 L RDW 16.8 H Plt Count 338 MPV 8.6 Absolute Neuts (auto) 2.8 Neutrophils % 44.6 Lymphocytes % 36.4 Monocytes % 13.0 H Eosinophils % 4.8 H Basophils % 1.2 Nucleated RBC % 4 H Active Medications Generic Name Dose Route Start Last Admin Trade Name Freq PRN Reason Stop Dose Admin Al Hydroxide/Mg Hydroxide 30 ml 01/17/19 18:07 01/19/19 13:59 Mylanta Oral Suspension - PO 30 ml Q6H PRN Administration DYSPEPSIA Apixaban 2.5 mg 01/19/19 10:00 01/19/19 10:08 Eliquis - PO 2.5 mg BID SAMANTHA Administration Carvedilol 12.5 mg 01/19/19 10:00 01/19/19 11:00 Coreg - PO Not Given BID SAMANTHA Cyanocobalamin 1,000 mcg 01/18/19 16:30 01/19/19 10:13 Vitamin B12 Injection - IM 01/22/19 10:01 1,000 mcg DAILY SAMANTHA Administration Enalapril Maleate 5 mg 01/20/19 10:00 Vasotec - PO DAILY SAMANTHA Epoetin John 20,000 unit 01/19/19 10:00 01/19/19 12:24 Procrit - SQ 01/23/19 10:01 20,000 unit DAILY SAMANTHA Administration Folic Acid 1 mg 01/19/19 10:00 01/19/19 10:08 Folic Acid - PO 1 mg DAILY SAMANTHA Administration Gabapentin 300 mg 01/19/19 22:00 Neurontin - PO HS SAMANTHA Iron Sucrose 100 mg/ Sodium 100 mls @ 200 mls/hr 01/18/19 16:30 01/19/19 12: 25 Chloride IVPB 01/25/19 10:29 200 mls/hr DAILY SAMANTHA Administration Ceftriaxone Sodium 1 gm/ 50 mls @ 100 mls/hr 01/19/19 10:00 01/19/19 13:46 Dextrose IVPB 100 mls/hr DAILY SAMANTHA Administration Ondansetron HCl 4 mg 01/18/19 23:55 Zofran Injection IVPUSH Q6H PRN NAUSEA AND/OR VOMITING Oxybutynin Chloride 10 mg 01/19/19 10:00 01/19/19 10:09 Ditropan - PO 10 mg DAILY SAMANTHA Administration Pantoprazole Sodium 20 mg 01/19/19 10:00 01/19/19 10:09 Protonix - PO 20 mg DAILY SAMANTHA Administration Polyethylene Glycol 17 gm 01/19/19 10:00 01/19/19 10:23 Miralax (For Daily Use) - PO Not Given DAILY SAMANTHA Rosuvastatin Calcium 20 mg 01/19/19 22:00 Crestor - PO HS SAMANTHA ASSESSMENT/PLAN: 68 F with h/o breast CA, PE/DVT and stroke in 2005 residual left sided hemiplegia presenting to ED with AMS. Heme consulted for anemia. Microcytic anemia Hx of PE/DVT Hx of stroke w/ L sided hemiplegia -Pt has anemia that is suggestive of iron deficiency anemia. -Pt is Judaism - No transfusions. -Will give IV iron 100mg x 8 days for a total of 1000mg total this admission. Vit b12. -Procrit -C/w Eliquis for now -GI on board Visit type - Emergency Visit Emergency Visit: Yes ED Registration Date: 01/12/19 Care time: The patient presented to the Emergency Department on the above date and was hospitalized for further evaluation of their emergent condition. - New Patient This patient is new to me today: No - Critical Care Critical Care patient: No
--- NOTE | 2019-01-19 18:41 | PN.GI ---
GI Progress Note Subjective: Low iron indices States feeling well No overt bleeding No vomiting - Objective Vital Signs: Vital Signs Temperature 97.3 F L 01/19/19 18:14 Pulse Rate 78 01/19/19 18:14 Respiratory Rate 18 01/19/19 18:14 Blood Pressure 117/43 L 01/19/19 18:14 O2 Sat by Pulse Oximetry (%) 98 01/18/19 20:40 Constitutional: Calm Eyes: No: Sclera Icterus Cardiovascular: Yes: Regular Rate and Rhythm Respiratory: Yes: CTA Bilaterally Gastrointestinal Inspection: No: Distention ...Auscultate: Yes: Normoactive Bowel Sounds ...Palpate: No: Tenderness Edema: No (No LE edema) Labs: CBC, BMP 01/19/19 06:30 01/18/19 12:25 INR, PTT INR 1.17 (0.83-1.09) H 01/12/19 10:36 Problem List - Problems (1) Vomiting Assessment/Plan: resolved Code(s): R11.10 - VOMITING, UNSPECIFIED (2) Anemia Assessment/Plan: Iron deficiency component. ? if related to hiatal hernia. Recent EGD/Colon . Advised outpatient follow-up to arrange capsule endoscopy to exclude alternate small bowel source. Receiving IV iron and procrit Protonix 20mg once daily Code(s): D64.9 - ANEMIA, UNSPECIFIED Qualifiers: Anemia type: iron deficiency Iron deficiency anemia type: chronic blood loss Qualified Code(s): D50.0 - Iron deficiency anemia secondary to blood loss (chronic)
[2019-01-19 19:08] LABS: FREE KAPPA,SERUM 16.9 mg/L (3.3-19.4)
[2019-01-19] MEDS: GABAPENTIN 300 MG CAPSULE (FP) PO SCH (21:49)
[2019-01-19] MEDS: ROSUVASTATIN CA 20 MG TABLET (FP) PO SCH (21:49)
[2019-01-20] MEDS ORDERED: cefTRIAXone SODIUM 1 GM VIAL ONE (08:54)
[2019-01-20] MEDS ORDERED: PT OWN MED DRAWER 7, Y5N ONE (08:54)
[2019-01-20] MEDS ORDERED: DEXTROSE 5%-WATER - 50 ML IVPB ONE (08:55)
[2019-01-20] MEDS: CYANOCOBALAMIN (VITAMIN B-12) 1000 MCG/1 ML VIAL IM SCH (09:06)
[2019-01-20] MEDS: FOLIC ACID 1 MG TABLET (FP) PO SCH (09:08)
[2019-01-20] MEDS: PANTOPRAZOLE 20 MG TABLET (FP) PO SCH (09:09)
[2019-01-20] MEDS: APIXABAN 2.5 MG TABLET PO SCH ×2 (09:09→22:09)
[2019-01-20] MEDS: OXYBUTYNIN CHLORIDE 5 MG TABLET PO SCH (09:09)
[2019-01-20] MEDS: ENALAPRIL MALEATE 5 MG TABLET (FP) PO SCH (09:09)
[2019-01-20] MEDS: CARVEDILOL 12.5 MG TABLET (FP) PO SCH ×2 (09:09→22:09)
[2019-01-20] MEDS: CEFTRIAXONE 1 GM in DEXTROSE 5%-WATER - 50 ML IVPB SCH (09:10)
[2019-01-20] MEDS: POLYETHYLENE GLYCOL 3350 119 GM BTL PO SCH (09:18)
[2019-01-20] MEDS: IRON SUCROSE INJECTION 100 MG in SODIUM CHLORIDE 95 ML IVPB SCH (09:58)
[2019-01-20] MEDS: EPOETIN ALFA 20,000 UNIT/1 ML VIAL SQ SCH (11:28)
--- NOTE | 2019-01-20 12:50 | PN ---
Progress Note (short form) - Note Progress Note: Pt had bm today -- no blood in stools no complaints feeling well Vital Signs - 24 hr 01/19/19 01/19/19 01/19/19 14:57 18:14 21:00 Temperature 98.2 F 97.3 F L Pulse Rate 83 78 Respiratory 18 18 18 Rate Blood Pressure 111/52 L 117/43 L O2 Sat by Pulse 97 Oximetry (%) 01/19/19 01/20/19 01/20/19 22:00 02:00 05:49 Temperature 98.2 F 98.3 F Pulse Rate 79 86 81 Respiratory 18 18 18 Rate Blood Pressure 132/53 L 134/63 134/64 O2 Sat by Pulse Oximetry (%) 01/20/19 09:00 Temperature 98.3 F Pulse Rate 72 Respiratory 18 Rate Blood Pressure 150/75 O2 Sat by Pulse 96 Oximetry (%) Current Medications Generic Name Dose Route Start Last Admin Trade Name Freq PRN Reason Stop Dose Admin Al Hydroxide/Mg Hydroxide 30 ml 01/17/19 18:07 01/19/19 13:59 Mylanta Oral Suspension - PO 30 ml Q6H PRN Administration DYSPEPSIA Apixaban 2.5 mg 01/19/19 10:00 01/20/19 09:09 Eliquis - PO 2.5 mg BID SAMANTHA Administration Carvedilol 12.5 mg 01/19/19 10:00 01/20/19 09:09 Coreg - PO 12.5 mg BID SAMANTHA Administration Cyanocobalamin 1,000 mcg 01/18/19 16:30 01/20/19 09:06 Vitamin B12 Injection - IM 01/22/19 10:01 1,000 mcg DAILY SAMANTHA Administration Enalapril Maleate 5 mg 01/20/19 10:00 01/20/19 09:09 Vasotec - PO 5 mg DAILY SAMANTHA Administration Epoetin John 20,000 unit 01/19/19 10:00 01/20/19 11:28 Procrit - SQ 01/23/19 10:01 20,000 unit DAILY SAMANTHA Administration Folic Acid 1 mg 01/19/19 10:00 01/20/19 09:08 Folic Acid - PO 1 mg DAILY SMAANTHA Administration Gabapentin 300 mg 01/19/19 22:00 01/19/19 21:49 Neurontin - PO 300 mg HS SAMANTHA Administration Iron Sucrose 100 mg/ Sodium 100 mls @ 200 mls/hr 01/18/19 16:30 01/20/19 09: 58 Chloride IVPB 01/25/19 10:29 200 mls/hr DAILY SAMANTHA Administration Ceftriaxone Sodium 1 gm/ 50 mls @ 100 mls/hr 01/19/19 10:00 01/20/19 09:10 Dextrose IVPB 100 mls/hr DAILY SAMANTHA Administration Ondansetron HCl 4 mg 01/18/19 23:55 Zofran Injection IVPUSH Q6H PRN NAUSEA AND/OR VOMITING Oxybutynin Chloride 10 mg 01/19/19 10:00 01/20/19 09:09 Ditropan - PO 10 mg DAILY SAMANTHA Administration Pantoprazole Sodium 20 mg 01/19/19 10:00 01/20/19 09:09 Protonix - PO 20 mg DAILY SAMANTHA Administration Polyethylene Glycol 17 gm 01/19/19 10:00 01/20/19 09:18 Miralax (For Daily Use) - PO 17 gm DAILY SAMANTHA Administration Rosuvastatin Calcium 20 mg 01/19/19 22:00 01/19/19 21:49 Crestor - PO 20 mg HS SAMANTHA Administration Laboratory Results - last 24 hr 01/17/19 01/17/19 05:30 05:30 Total Protein (PEP) 5.0 L Albumin (PEP) 2.9 Globulin 2.1 L Albumin/Globulin Ratio 1.4 Beta Globulins 0.8 BURTON M-Herve Not observed Free [place] LC, Quant 16.9 Free Lambda LC, Quant 12.6 Free [place]/Lambda Ratio 1.34 S1 S2 RRR Lungs clear Abd- soft, obese, NT, BS+, not distended No edema Left arm weakness= same Facial droop same as previous PLAN tolerating diet venofer x 8 days total Continue wth PPI procrit per Hematology HCT better decrease Eliquis -- pt is on anticoagulation for 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 and h/ o CVA - does not have Afib iron studies Pt does not want transfusion== she is Jehovah witness monitor Hb Problem List - Problems (1) TIA (transient ischemic attack) Code(s): G45.9 - TRANSIENT CEREBRAL ISCHEMIC ATTACK, UNSPECIFIED (2) Abdominal pain Code(s): R10.9 - UNSPECIFIED ABDOMINAL PAIN Qualifiers: Abdominal location: epigastric Qualified Code(s): R10.13 - Epigastric pain (3) Breast cancer Code(s): C50.919 - MALIGNANT NEOPLASM OF UNSP SITE OF UNSPECIFIED FEMALE BREAST Qualifiers: Breast location: unspecified site of breast (4) Carotid stenosis, right Code(s): I65.21 - OCCLUSION AND STENOSIS OF RIGHT CAROTID ARTERY (5) Cerebral arteriosclerosis with history of previous stroke Code(s): I67.2 - CEREBRAL ATHEROSCLEROSIS; Z86.73 - PRSNL HX OF TIA (TIA), AND CEREB INFRC W/O RESID DEFICITS (6) History of coronary artery disease Code(s): Z86.79 - PERSONAL HISTORY OF OTHER DISEASES OF THE CIRCULATORY SYSTEM (7) Hyperlipidemia Code(s): E78.5 - HYPERLIPIDEMIA, UNSPECIFIED Qualifiers: Hyperlipidemia type: pure hypercholesterolemia Qualified Code(s): E78.00 - Pure hypercholesterolemia, unspecified; E78.0 - Pure hypercholesterolemia (8) Hypertension Code(s): I10 - ESSENTIAL (PRIMARY) HYPERTENSION Qualifiers: Hypertension type: essential hypertension Qualified Code(s): I10 - Essential (primary) hypertension (9) UTI (urinary tract infection) Code(s): N39.0 - URINARY TRACT INFECTION, SITE NOT SPECIFIED Qualifiers: Hematuria presence: without hematuria
--- NOTE | 2019-01-20 14:53 | PN ---
Progress Note, Physician History of Present Illness: No complaints. - Current Medication List Current Medications: Active Medications Al Hydroxide/Mg Hydroxide (Mylanta Oral Suspension -) 30 ml PO Q6H PRN PRN Reason: DYSPEPSIA Last Admin: 01/19/19 13:59 Dose: 30 ml Apixaban (Eliquis -) 2.5 mg PO BID [facility] Last Admin: 01/20/19 09:09 Dose: 2.5 mg Carvedilol (Coreg -) 12.5 mg PO BID [facility] Last Admin: 01/20/19 09:09 Dose: 12.5 mg Cyanocobalamin (Vitamin B12 Injection -) 1,000 mcg IM DAILY [facility] Stop: 01/22/19 10:01 Last Admin: 01/20/19 09:06 Dose: 1,000 mcg Enalapril Maleate (Vasotec -) 5 mg PO DAILY [facility] Last Admin: 01/20/19 09:09 Dose: 5 mg Epoetin John (Procrit -) 20,000 unit SQ DAILY [facility] Stop: 01/23/19 10:01 Last Admin: 01/20/19 11:28 Dose: 20,000 unit Folic Acid (Folic Acid -) 1 mg PO DAILY [facility] Last Admin: 01/20/19 09:08 Dose: 1 mg Gabapentin (Neurontin -) 300 mg PO HS [facility] Last Admin: 01/19/19 21:49 Dose: 300 mg Iron Sucrose 100 mg/ Sodium (Chloride) 100 mls @ 200 mls/hr IVPB DAILY [facility] Stop: 01/25/19 10:29 Last Admin: 01/20/19 09:58 Dose: 200 mls/hr Ondansetron HCl (Zofran Injection) 4 mg IVPUSH Q6H PRN PRN Reason: NAUSEA AND/OR VOMITING Oxybutynin Chloride (Ditropan -) 10 mg PO DAILY [facility] Last Admin: 01/20/19 09:09 Dose: 10 mg Pantoprazole Sodium (Protonix -) 20 mg PO DAILY [facility] Last Admin: 01/20/19 09:09 Dose: 20 mg Polyethylene Glycol (Miralax (For Daily Use) -) 17 gm PO DAILY [facility] Last Admin: 01/20/19 09:18 Dose: 17 gm Rosuvastatin Calcium (Crestor -) 20 mg PO HS [facility] Last Admin: 01/19/19 21:49 Dose: 20 mg - Objective Vital Signs: Vital Signs Temperature 99.1 F 01/20/19 14:24 Pulse Rate 86 01/20/19 14:24 Respiratory Rate 18 01/20/19 14:24 Blood Pressure 102/51 L 01/20/19 14:24 O2 Sat by Pulse Oximetry (%) 96 01/20/19 09:00 Constitutional: Yes: No Distress, Calm Neck: Yes: Supple Cardiovascular: Yes: Regular Rate and Rhythm Respiratory: Yes: Regular, Diminished Gastrointestinal: Yes: Normal Bowel Sounds, Soft Edema: No Labs: CBC, BMP 01/19/19 06:30 01/18/19 12:25 INR, PTT INR 1.17 (0.83-1.09) H 01/12/19 10:36 Problem List - Problems (1) Toxic metabolic encephalopathy Code(s): G92 - TOXIC ENCEPHALOPATHY (2) Anemia Code(s): D64.9 - ANEMIA, UNSPECIFIED Qualifiers: Anemia type: iron deficiency Iron deficiency anemia type: chronic blood loss Qualified Code(s): D50.0 - Iron deficiency anemia secondary to blood loss (chronic) (3) UTI (urinary tract infection) Code(s): N39.0 - URINARY TRACT INFECTION, SITE NOT SPECIFIED Qualifiers: Hematuria presence: without hematuria (4) Chronic anticoagulation Code(s): Z79.01 - [employer] (CURRENT) USE OF ANTICOAGULANTS (5) 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 transplanted heart: [place] heart Associated angina: without angina Qualified Code(s): I25.10 - Atherosclerotic heart disease of [place] coronary artery without angina pectoris (7) Hyperlipidemia Code(s): E78.5 - HYPERLIPIDEMIA, UNSPECIFIED Qualifiers: Hyperlipidemia type: pure hypercholesterolemia Qualified Code(s): E78.00 - Pure hypercholesterolemia, unspecified; E78.0 - Pure hypercholesterolemia (8) Hypertension Code(s): I10 - ESSENTIAL (PRIMARY) HYPERTENSION Qualifiers: Hypertension type: essential hypertension Qualified Code(s): I10 - Essential (primary) hypertension (9) S/P coronary artery stent placement Code(s): Z95.5 - PRESENCE OF CORONARY ANGIOPLASTY IMPLANT AND GRAFT Assessment/Plan 01/13/2019 Echo: Normal LV size and fxn, mod HARDY, mod TR RVSP 40-50 mmHg, mod MR , abnl LV compliance 1. Resolved toxic metabolic encephelopathy referable to UTI 2. CAD s/p PCI/DEAN, angina pectoris 3. HTN 4. Hypercholesterolemia 5. History of breast CA s/p lumpectomy 6. Previous history of syncope 7. History of DVT and PTE 8. Left subclavian steal suspect plan for stent as outpatient 9. Right carotid stenosis plan for angiogram 10. Iron deficiency anemia PLAN: 1. Complete abx course 2. GI and Heme recs noted, maintain PPI, outpatient capsule endoscopy to evaluate SB 3. Continue Carvedilol 12.5 bid and Enalapril 10 bid with uptitration as tolerated 4. Agree with decrease Eliquis 2.5 bid with PPI, hold 2 days prior to procedure and resume once post-op hemostasis achieved, declines transfusions 5. Continue Rosuvastatin 20 qhs
--- NOTE | 2019-01-20 17:57 | PN ---
Progress Note (short form) - Note Progress Note: Patient seen and examined No chest pains or SOB Last Vital Signs Temp Pulse Resp BP Pulse Ox 99.1 F 86 18 102/51 L 96 01/20/19 14:24 01/20/19 14:24 01/20/19 14:24 01/20/19 14:24 01/20/19 09:00 HEENT: ANGELINE, EOM Intact Oropharynx: No thrush, No mucositis Cor: RSR, No murmurs, No gallops Lungs: Rales bilateral bases Abd: Soft, Normal bowel sounds, No organomegaly Ext:No significant edema Skin: No rashes, Integument intact CBC, BMP 01/19/19 06:30 01/18/19 12:25 Current Medications Generic Name Dose Route Start Last Admin Trade Name Freq PRN Reason Stop Dose Admin Al Hydroxide/Mg Hydroxide 30 ml 01/17/19 18:07 01/19/19 13:59 Mylanta Oral Suspension - PO 30 ml Q6H PRN Administration DYSPEPSIA Apixaban 2.5 mg 01/19/19 10:00 01/20/19 09:09 Eliquis - PO 2.5 mg BID SAMANTHA Administration Carvedilol 12.5 mg 01/19/19 10:00 01/20/19 09:09 Coreg - PO 12.5 mg BID SAMANTHA Administration Cyanocobalamin 1,000 mcg 01/18/19 16:30 01/20/19 09:06 Vitamin B12 Injection - IM 01/22/19 10:01 1,000 mcg DAILY SAMANTHA Administration Enalapril Maleate 5 mg 01/20/19 10:00 01/20/19 09:09 Vasotec - PO 5 mg DAILY SAMANTHA Administration Epoetin John 20,000 unit 01/19/19 10:00 01/20/19 11:28 Procrit - SQ 01/23/19 10:01 20,000 unit DAILY SAMANTHA Administration Folic Acid 1 mg 01/19/19 10:00 01/20/19 09:08 Folic Acid - PO 1 mg DAILY SAMANTHA Administration Gabapentin 300 mg 01/19/19 22:00 01/19/19 21:49 Neurontin - PO 300 mg HS SAMANTHA Administration Iron Sucrose 100 mg/ Sodium 100 mls @ 200 mls/hr 01/18/19 16:30 05/01/19 09: 58 Chloride IVPB 01/25/19 10:29 200 mls/hr DAILY SAMANTHA Administration Ondansetron HCl 4 mg 01/18/19 23:55 Zofran Injection IVPUSH Q6H PRN NAUSEA AND/OR VOMITING Oxybutynin Chloride 10 mg 01/19/19 10:00 01/20/19 09:09 Ditropan - PO 10 mg DAILY SAMANTHA Administration Pantoprazole Sodium 20 mg 01/19/19 10:00 01/20/19 09:09 Protonix - PO 20 mg DAILY SAMANTHA Administration Polyethylene Glycol 17 gm 01/19/19 10:00 01/20/19 09:18 Miralax (For Daily Use) - PO 17 gm DAILY SAMANTHA Administration Rosuvastatin Calcium 20 mg 01/19/19 22:00 01/19/19 21:49 Crestor - PO 20 mg HS SAMANTHA Administration Impression: GI bleeding --? source Fe++ deficiency Jehovalh witness Anemia-symptomatic Plan: Continue with IV Venofer / procrit Outpatient capsule when stable .
[2019-01-20] MEDS: ROSUVASTATIN CA 20 MG TABLET (FP) PO SCH (22:09)
[2019-01-20] MEDS: GABAPENTIN 300 MG CAPSULE (FP) PO SCH (22:09)
[2019-01-21 07:27] LABS: BASO % 1.3 % (0-2.0); EOS % 4.5 % (0-4.5); HEMATOCRIT 23.6 % (32.4-45.2); HEMOGLOBIN 7.3 GM/dL (10.7-15.3); LYMPH % 28.3 % (8-40); MCH 25.3 pg (25.7-33.7); MCHC 30.7 g/dl (32.0-36.0); MEAN CELL VOLUME 82.2 fl (80-96); MEAN PLT VOLUME 8.4 fl (7.5-11.1); MONO % 11.5 % (3.8-10.2); NEUT % 54.4 % (42.8-82.8); PLATELET COUNT 364 K/MM3 (134-434); RBC 2.87 M/mm3 (3.60-5.2); WHITE BLOOD COUNT 7.1 K/mm3 (4.0-10.0)
[2019-01-21 07:48] LABS: ALBUMIN 2.7 g/dl (3.4-5.0); ALK PHOS 43 U/L (45-117); ANION GAP 5 MMOL/L (8-16); BILIRUBIN,TOTAL 0.2 mg/dL (0.2-1); BLOOD UREA NITROGEN 10 mg/dL (7-18); CALCIUM 8.6 mg/dL (8.5-10.1); CHLORIDE 110 mmol/L (98-107); CO2 27 mmol/L (21-32); CREATININE 0.9 mg/dL (0.55-1.3); GLUCOSE,RANDOM 86 mg/dL (74-106); POTASSIUM 4.2 mmol/L (3.5-5.1); SGOT/AST 14 U/L (15-37); SGPT/ALT 12 U/L (13-61); SODIUM 141 mmol/L (136-145); TOT PROT 5.2 g/dl (6.4-8.2)
[2019-01-21] MEDS: OXYBUTYNIN CHLORIDE 5 MG TABLET PO SCH (10:42)
[2019-01-21] MEDS: IRON SUCROSE INJECTION 100 MG in SODIUM CHLORIDE 95 ML IVPB SCH (10:42)
[2019-01-21] MEDS: ENALAPRIL MALEATE 5 MG TABLET (FP) PO SCH (10:42)
[2019-01-21] MEDS: CYANOCOBALAMIN (VITAMIN B-12) 1000 MCG/1 ML VIAL IM SCH (10:43)
[2019-01-21] MEDS: PANTOPRAZOLE 20 MG TABLET (FP) PO SCH (10:43)
[2019-01-21] MEDS: APIXABAN 2.5 MG TABLET PO SCH ×2 (10:43→21:48)
[2019-01-21] MEDS: CARVEDILOL 12.5 MG TABLET (FP) PO SCH ×2 (10:43→21:48)
[2019-01-21] MEDS: FOLIC ACID 1 MG TABLET (FP) PO SCH (10:43)
[2019-01-21] MEDS: POLYETHYLENE GLYCOL 3350 119 GM BTL PO SCH (10:44)
--- NOTE | 2019-01-21 10:53 | PN ---
Progress Note, Physician History of Present Illness: No complaints. - Current Medication List Current Medications: Active Medications Al Hydroxide/Mg Hydroxide (Mylanta Oral Suspension -) 30 ml PO Q6H PRN PRN Reason: DYSPEPSIA Last Admin: 01/19/19 13:59 Dose: 30 ml Apixaban (Eliquis -) 2.5 mg PO BID [facility] Last Admin: 01/21/19 10:43 Dose: 2.5 mg Carvedilol (Coreg -) 12.5 mg PO BID [facility] Last Admin: 01/21/19 10:43 Dose: 12.5 mg Cyanocobalamin (Vitamin B12 Injection -) 1,000 mcg IM DAILY [facility] Stop: 01/22/19 10:01 Last Admin: 01/21/19 10:43 Dose: 1,000 mcg Enalapril Maleate (Vasotec -) 5 mg PO DAILY [facility] Last Admin: 01/21/19 10:42 Dose: 5 mg Epoetin John (Procrit -) 20,000 unit SQ DAILY [facility] Stop: 01/23/19 10:01 Last Admin: 01/20/19 11:28 Dose: 20,000 unit Folic Acid (Folic Acid -) 1 mg PO DAILY [facility] Last Admin: 01/21/19 10:43 Dose: 1 mg Gabapentin (Neurontin -) 300 mg PO HS [facility] Last Admin: 01/20/19 22:09 Dose: 300 mg Iron Sucrose 100 mg/ Sodium (Chloride) 100 mls @ 200 mls/hr IVPB DAILY [facility] Stop: 01/25/19 10:29 Last Admin: 01/21/19 10:42 Dose: 200 mls/hr Ondansetron HCl (Zofran Injection) 4 mg IVPUSH Q6H PRN PRN Reason: NAUSEA AND/OR VOMITING Oxybutynin Chloride (Ditropan -) 10 mg PO DAILY [facility] Last Admin: 01/21/19 10:42 Dose: 10 mg Pantoprazole Sodium (Protonix -) 20 mg PO DAILY [facility] Last Admin: 01/21/19 10:43 Dose: 20 mg Polyethylene Glycol (Miralax (For Daily Use) -) 17 gm PO DAILY [facility] Last Admin: 01/21/19 10:44 Dose: 17 gm Rosuvastatin Calcium (Crestor -) 20 mg PO HS [facility] Last Admin: 01/20/19 22:09 Dose: 20 mg - Objective Vital Signs: Vital Signs Temperature 98.7 F 01/21/19 06:00 Pulse Rate 87 01/21/19 06:00 Respiratory Rate 18 01/21/19 06:00 Blood Pressure 105/48 L 01/21/19 06:00 O2 Sat by Pulse Oximetry (%) 96 01/20/19 09:00 Constitutional: Yes: No Distress, Calm Neck: Yes: Supple Cardiovascular: Yes: Regular Rate and Rhythm Respiratory: Yes: Regular, CTA Bilaterally Gastrointestinal: Yes: Normal Bowel Sounds, Soft Edema: No Labs: CBC, BMP 01/21/19 06:35 01/21/19 06:35 INR, PTT INR 1.17 (0.83-1.09) H 01/12/19 10:36 Problem List - Problems (1) Toxic metabolic encephalopathy Code(s): G92 - TOXIC ENCEPHALOPATHY (2) Anemia Code(s): D64.9 - ANEMIA, UNSPECIFIED Qualifiers: Anemia type: iron deficiency Iron deficiency anemia type: chronic blood loss Qualified Code(s): D50.0 - Iron deficiency anemia secondary to blood loss (chronic) (3) UTI (urinary tract infection) Code(s): N39.0 - URINARY TRACT INFECTION, SITE NOT SPECIFIED Qualifiers: Hematuria presence: without hematuria (4) Chronic anticoagulation Code(s): Z79.01 - LONGTERM (CURRENT) USE OF ANTICOAGULANTS (5) Chronic ischemic right middle cerebral artery (MCA) stroke Code(s): I69.30 - UNSPECIFIED SEQUELAE OF CEREBRAL INFARCTION (6) Coronary artery disease Code(s): I25.10 - ATHSCL HEART DISEASE OF [place] CORONARY ARTERY W/O ANG PCTRS Qualifiers: Coronary Disease-Associated Artery/Lesion type: [place] artery [place] vs. transplanted heart: [place] heart Associated angina: without angina Qualified Code(s): I25.10 - Atherosclerotic heart disease of [place] coronary artery without angina pectoris (7) Hyperlipidemia Code(s): E78.5 - HYPERLIPIDEMIA, UNSPECIFIED Qualifiers: Hyperlipidemia type: pure hypercholesterolemia Qualified Code(s): E78.00 - Pure hypercholesterolemia, unspecified; E78.0 - Pure hypercholesterolemia (8) Hypertension Code(s): I10 - ESSENTIAL (PRIMARY) HYPERTENSION Qualifiers: Hypertension type: essential hypertension Qualified Code(s): I10 - Essential (primary) hypertension (9) S/P coronary artery stent placement Code(s): Z95.5 - PRESENCE OF CORONARY ANGIOPLASTY IMPLANT AND GRAFT Assessment/Plan 01/13/2019 Echo: Normal LV size and fxn, mod HARDY, mod TR RVSP 40-50 mmHg, mod MR , abnl LV compliance 1. Resolved toxic metabolic encephelopathy referable to UTI 2. CAD s/p PCI/DEAN, angina pectoris 3. HTN 4. Hypercholesterolemia 5. History of breast CA s/p lumpectomy 6. Previous history of syncope 7. History of DVT and PTE 8. Left subclavian steal suspect plan for stent as outpatient 9. Right carotid stenosis plan for angiogram 10. Iron deficiency anemia PLAN: 1. Completed abx course 2. GI and Heme recs noted, maintain PPI, outpatient capsule endoscopy to evaluate SB 3. Continue Carvedilol 12.5 bid and Enalapril 10 bid with uptitration as tolerated 4. Agree with decrease Eliquis 2.5 bid with PPI, hold 2 days prior to procedure and resume once post-op hemostasis achieved, declines transfusions Restorationist, continues IV Venofer and Procrit 5. Continue Rosuvastatin 20 qhs
--- NOTE | 2019-01-21 11:55 | PN ---
Physical Exam: SUBJECTIVE: Patient seen and examined at bedside. Pt continues to feel well, ambulating, and eating well. No complaints. OBJECTIVE: Vital Signs Period Temp Pulse Resp BP Sys/Mccollum Pulse Ox Last 24 Hr 97.9 F-99.1 F 82-88 16-20 102-123/48-62 GENERAL: The patient is awake, alert, and fully oriented, in no acute distress. EYES: extraocular movements intact, sclera anicteric, conjunctiva clear. ENT: Ears normal, nares patent LUNGS: Breath sounds equal, clear to auscultation bilaterally HEART: Regular rate and rhythm, S1, S2 ABDOMEN: Soft, nondistended, normoactive bowel sounds EXTREMITIES: warm, well-perfused NEUROLOGICAL: Cranial nerves II through XII grossly intact. Normal speech, gait not observed. PSYCH: Normal mood, normal affect. SKIN: Warm, dry Laboratory Results - last 24 hr 01/21/19 01/21/19 06:35 06:35 WBC 7.1 RBC 2.87 L Hgb 7.3 L Hct 23.6 L MCV 82.2 MCH 25.3 L MCHC 30.7 L RDW 17.0 H Plt Count 364 MPV 8.4 Absolute Neuts (auto) 3.9 Neutrophils % 54.4 D Lymphocytes % 28.3 D Monocytes % 11.5 H Eosinophils % 4.5 Basophils % 1.3 Nucleated RBC % 6 H Sodium 141 Potassium 4.2 Chloride 110 H Carbon Dioxide 27 Anion Gap 5 L BUN 10 Creatinine 0.9 Creat Clearance w eGFR 61.90 Random Glucose 86 Calcium 8.6 Total Bilirubin 0.2 AST 14 L ALT 12 L Alkaline Phosphatase 43 L Total Protein 5.2 L Albumin 2.7 L Active Medications Generic Name Dose Route Start Last Admin Trade Name Freq PRN Reason Stop Dose Admin Al Hydroxide/Mg Hydroxide 30 ml 01/17/19 18:07 01/19/19 13:59 Mylanta Oral Suspension - PO 30 ml Q6H PRN Administration DYSPEPSIA Apixaban 2.5 mg 01/19/19 10:00 01/21/19 10:43 Eliquis - PO 2.5 mg BID SAMANTHA Administration Carvedilol 12.5 mg 01/19/19 10:00 01/21/19 10:43 Coreg - PO 12.5 mg BID SAMANTHA Administration Cyanocobalamin 1,000 mcg 01/18/19 16:30 01/21/19 10:43 Vitamin B12 Injection - IM 01/22/19 10:01 1,000 mcg DAILY SAMANTHA Administration Enalapril Maleate 5 mg 01/20/19 10:00 01/21/19 10:42 Vasotec - PO 5 mg DAILY SAMANTHA Administration Epoetin John 20,000 unit 01/19/19 10:00 01/20/19 11:28 Procrit - SQ 01/23/19 10:01 20,000 unit DAILY SAMANTHA Administration Folic Acid 1 mg 01/19/19 10:00 01/21/19 10:43 Folic Acid - PO 1 mg DAILY SAMANTHA Administration Gabapentin 300 mg 01/19/19 22:00 01/20/19 22:09 Neurontin - PO 300 mg HS SAMANTHA Administration Iron Sucrose 100 mg/ Sodium 100 mls @ 200 mls/hr 01/18/19 16:30 01/21/19 10: 42 Chloride IVPB 01/25/19 10:29 200 mls/hr DAILY SAMANTHA Administration Ondansetron HCl 4 mg 01/18/19 23:55 Zofran Injection IVPUSH Q6H PRN NAUSEA AND/OR VOMITING Oxybutynin Chloride 10 mg 01/19/19 10:00 01/21/19 10:42 Ditropan - PO 10 mg DAILY SAMANTHA Administration Pantoprazole Sodium 20 mg 01/19/19 10:00 01/21/19 10:43 Protonix - PO 20 mg DAILY SAMANTHA Administration Polyethylene Glycol 17 gm 01/19/19 10:00 01/21/19 10:44 Miralax (For Daily Use) - PO 17 gm DAILY SAMANTHA Administration Rosuvastatin Calcium 20 mg 01/19/19 22:00 01/20/19 22:09 Crestor - PO 20 mg HS SAMANTHA Administration ASSESSMENT/PLAN: 68 F with h/o breast CA, PE/DVT and stroke in 2005 residual left sided hemiplegia presenting to ED with AMS. Heme consulted for anemia. Microcytic anemia Hx of PE/DVT Hx of stroke w/ L sided hemiplegia -anemia that is suggestive of iron deficiency anemia. -Pt is Christian - No transfusions. -IV iron 100mg x 8 days for a total of 1000mg total this admission. Vit b12. -Procrit -C/w Eliquis for now -GI on board Visit type - Emergency Visit Emergency Visit: Yes ED Registration Date: 01/12/19 Care time: The patient presented to the Emergency Department on the above date and was hospitalized for further evaluation of their emergent condition. - New Patient This patient is new to me today: No - Critical Care Critical Care patient: No
[2019-01-21] MEDS: EPOETIN ALFA 20,000 UNIT/1 ML VIAL SQ SCH (12:30)
--- NOTE | 2019-01-21 13:00 | PN ---
Progress Note (short form) - Note Progress Note: Pt had bm today -- no blood in stools no complaints feeling well Vital Signs - 24 hr 01/20/19 01/20/19 01/20/19 14:24 18:30 22:00 Temperature 99.1 F 97.9 F 97.9 F Pulse Rate 86 82 88 Respiratory 18 18 16 Rate Blood Pressure 102/51 L 123/62 103/52 L 01/21/19 01/21/19 01/21/19 02:00 06:00 10:00 Temperature 98.1 F 98.7 F Pulse Rate 84 87 83 Respiratory 17 18 20 Rate Blood Pressure 112/58 L 105/48 L 107/48 L Current Medications Generic Name Dose Route Start Last Admin Trade Name Freq PRN Reason Stop Dose Admin Al Hydroxide/Mg Hydroxide 30 ml 01/17/19 18:07 01/19/19 13:59 Mylanta Oral Suspension - PO 30 ml Q6H PRN Administration DYSPEPSIA Apixaban 2.5 mg 01/19/19 10:00 01/21/19 10:43 Eliquis - PO 2.5 mg BID SAMANTHA Administration Carvedilol 12.5 mg 01/19/19 10:00 01/21/19 10:43 Coreg - PO 12.5 mg BID SAMANTHA Administration Cyanocobalamin 1,000 mcg 01/18/19 16:30 01/21/19 10:43 Vitamin B12 Injection - IM 01/22/19 10:01 1,000 mcg DAILY SAMANTHA Administration Enalapril Maleate 5 mg 01/20/19 10:00 01/21/19 10:42 Vasotec - PO 5 mg DAILY SAMANTHA Administration Epoetin John 20,000 unit 01/19/19 10:00 01/21/19 12:30 Procrit - SQ 01/23/19 10:01 20,000 unit DAILY SAMANTHA Administration Folic Acid 1 mg 01/19/19 10:00 01/21/19 10:43 Folic Acid - PO 1 mg DAILY SAMANTHA Administration Gabapentin 300 mg 01/19/19 22:00 01/20/19 22:09 Neurontin - PO 300 mg HS SAMANTHA Administration Iron Sucrose 100 mg/ Sodium 100 mls @ 200 mls/hr 01/18/19 16:30 01/21/19 10: 42 Chloride IVPB 01/25/19 10:29 200 mls/hr DAILY SAMANTHA Administration Ondansetron HCl 4 mg 01/18/19 23:55 Zofran Injection IVPUSH Q6H PRN NAUSEA AND/OR VOMITING Oxybutynin Chloride 10 mg 01/19/19 10:00 01/21/19 10:42 Ditropan - PO 10 mg DAILY SAMANTHA Administration Pantoprazole Sodium 20 mg 01/19/19 10:00 01/21/19 10:43 Protonix - PO 20 mg DAILY SAMANTHA Administration Polyethylene Glycol 17 gm 01/19/19 10:00 01/21/19 10:44 Miralax (For Daily Use) - PO 17 gm DAILY SAMANTHA Administration Rosuvastatin Calcium 20 mg 01/19/19 22:00 01/20/19 22:09 Crestor - PO 20 mg HS SAMANTHA Administration Laboratory Results - last 24 hr 01/21/19 01/21/19 06:35 06:35 WBC 7.1 RBC 2.87 L Hgb 7.3 L Hct 23.6 L MCV 82.2 MCH 25.3 L MCHC 30.7 L RDW 17.0 H Plt Count 364 MPV 8.4 Absolute Neuts (auto) 3.9 Neutrophils % 54.4 D Lymphocytes % 28.3 D Monocytes % 11.5 H Eosinophils % 4.5 Basophils % 1.3 Nucleated RBC % 6 H Sodium 141 Potassium 4.2 Chloride 110 H Carbon Dioxide 27 Anion Gap 5 L BUN 10 Creatinine 0.9 Creat Clearance w eGFR 61.90 Random Glucose 86 Calcium 8.6 Total Bilirubin 0.2 AST 14 L ALT 12 L Alkaline Phosphatase 43 L Total Protein 5.2 L Albumin 2.7 L S1 S2 RRR Lungs clear Abd- soft, obese, NT, BS+, not distended No edema Left arm weakness= same Facial droop same as previous PLAN tolerating diet ambulating well venofer x 8 days total-- will complete on Friday Continue wth PPI procrit per Hematology, Vit B 12 HCT better decrease Eliquis -- pt is on anticoagulation for 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 and h/ o CVA - does not have Afib iron studies Pt does not want transfusion== she is Jehovah witness monitor Hb Problem List - Problems (1) TIA (transient ischemic attack) Code(s): G45.9 - TRANSIENT CEREBRAL ISCHEMIC ATTACK, UNSPECIFIED (2) Abdominal pain Code(s): R10.9 - UNSPECIFIED ABDOMINAL PAIN Qualifiers: Abdominal location: epigastric Qualified Code(s): R10.13 - Epigastric pain (3) Breast cancer Code(s): C50.919 - MALIGNANT NEOPLASM OF UNSP SITE OF UNSPECIFIED FEMALE BREAST Qualifiers: Breast location: unspecified site of breast (4) Carotid stenosis, right Code(s): I65.21 - OCCLUSION AND STENOSIS OF RIGHT CAROTID ARTERY (5) Cerebral arteriosclerosis with history of previous stroke Code(s): I67.2 - CEREBRAL ATHEROSCLEROSIS; Z86.73 - PRSNL HX OF TIA (TIA), AND CEREB INFRC W/O RESID DEFICITS (6) History of coronary artery disease Code(s): Z86.79 - PERSONAL HISTORY OF OTHER DISEASES OF THE CIRCULATORY SYSTEM (7) Hyperlipidemia Code(s): E78.5 - HYPERLIPIDEMIA, UNSPECIFIED Qualifiers: Hyperlipidemia type: pure hypercholesterolemia Qualified Code(s): E78.00 - Pure hypercholesterolemia, unspecified; E78.0 - Pure hypercholesterolemia (8) Hypertension Code(s): I10 - ESSENTIAL (PRIMARY) HYPERTENSION Qualifiers: Hypertension type: essential hypertension Qualified Code(s): I10 - Essential (primary) hypertension (9) UTI (urinary tract infection) Code(s): N39.0 - URINARY TRACT INFECTION, SITE NOT SPECIFIED Qualifiers: Hematuria presence: without hematuria
[2019-01-21] MEDS: ROSUVASTATIN CA 20 MG TABLET (FP) PO SCH (21:48)
[2019-01-21] MEDS: GABAPENTIN 300 MG CAPSULE (FP) PO SCH (21:48)
[2019-01-22 06:56] LABS: BASO % 1.4 % (0-2.0); EOS % 4.1 % (0-4.5); HEMATOCRIT 25.5 % (32.4-45.2); HEMOGLOBIN 7.7 GM/dL (10.7-15.3); LYMPH % 30.9 % (8-40); MCH 25.8 pg (25.7-33.7); MCHC 30.3 g/dl (32.0-36.0); MEAN CELL VOLUME 85.2 fl (80-96); MEAN PLT VOLUME 8.4 fl (7.5-11.1); MONO % 10.7 % (3.8-10.2); NEUT % 52.9 % (42.8-82.8); PLATELET COUNT 366 K/MM3 (134-434); RBC 2.99 M/mm3 (3.60-5.2); WHITE BLOOD COUNT 7.9 K/mm3 (4.0-10.0)
[2019-01-22 07:08] LABS: ALK PHOS 46 U/L (45-117); ANION GAP 7 MMOL/L (8-16); BILIRUBIN,TOTAL 0.2 mg/dL (0.2-1); BLOOD UREA NITROGEN 10 mg/dL (7-18); CALCIUM 8.7 mg/dL (8.5-10.1); CHLORIDE 108 mmol/L (98-107); CO2 26 mmol/L (21-32); CREATININE 1.2 mg/dL (0.55-1.3); GLUCOSE,RANDOM 91 mg/dL (74-106); POTASSIUM 4.1 mmol/L (3.5-5.1); SGOT/AST 17 U/L (15-37); SGPT/ALT 12 U/L (13-61); SODIUM 142 mmol/L (136-145); TOT PROT 5.6 g/dl (6.4-8.2)
[2019-01-22] MEDS: CARVEDILOL 12.5 MG TABLET (FP) PO SCH ×2 (08:59→21:02)
[2019-01-22] MEDS: PANTOPRAZOLE 20 MG TABLET (FP) PO SCH (08:59)
[2019-01-22] MEDS: APIXABAN 2.5 MG TABLET PO SCH ×2 (08:59→21:02)
[2019-01-22] MEDS: ENALAPRIL MALEATE 5 MG TABLET (FP) PO SCH (08:59)
[2019-01-22] MEDS: OXYBUTYNIN CHLORIDE 5 MG TABLET PO SCH (09:00)
[2019-01-22] MEDS: FOLIC ACID 1 MG TABLET (FP) PO SCH (09:01)
[2019-01-22] MEDS: CYANOCOBALAMIN (VITAMIN B-12) 1000 MCG/1 ML VIAL IM SCH (09:05)
[2019-01-22] MEDS: POLYETHYLENE GLYCOL 3350 119 GM BTL PO SCH (09:10)
[2019-01-22] MEDS: IRON SUCROSE INJECTION 100 MG in SODIUM CHLORIDE 95 ML IVPB SCH (10:21)
[2019-01-22] MEDS: EPOETIN ALFA 20,000 UNIT/1 ML VIAL SQ SCH (10:24)
--- NOTE | 2019-01-22 11:14 | PN ---
Progress Note, Physician History of Present Illness: Ambulating with PT assistance w/o complaints. - Current Medication List Current Medications: Active Medications Acetaminophen (Tylenol -) 650 mg PO Q6H PRN PRN Reason: PAIN Al Hydroxide/Mg Hydroxide (Mylanta Oral Suspension -) 30 ml PO Q6H PRN PRN Reason: DYSPEPSIA Last Admin: 01/19/19 13:59 Dose: 30 ml Apixaban (Eliquis -) 2.5 mg PO BID [facility] Last Admin: 01/22/19 08:59 Dose: 2.5 mg Carvedilol (Coreg -) 12.5 mg PO BID [facility] Last Admin: 01/22/19 08:59 Dose: 12.5 mg Enalapril Maleate (Vasotec -) 5 mg PO DAILY [facility] Last Admin: 01/22/19 08:59 Dose: 5 mg Epoetin John (Procrit -) 20,000 unit SQ DAILY [facility] Stop: 01/23/19 10:01 Last Admin: 01/22/19 10:24 Dose: 20,000 unit Folic Acid (Folic Acid -) 1 mg PO DAILY [facility] Last Admin: 01/22/19 09:01 Dose: 1 mg Gabapentin (Neurontin -) 300 mg PO HS [facility] Last Admin: 01/21/19 21:48 Dose: 300 mg Iron Sucrose 100 mg/ Sodium (Chloride) 100 mls @ 200 mls/hr IVPB DAILY [facility] Stop: 01/25/19 10:29 Last Admin: 01/22/19 10:21 Dose: 200 mls/hr Ondansetron HCl (Zofran Injection) 4 mg IVPUSH Q6H PRN PRN Reason: NAUSEA AND/OR VOMITING Last Admin: 01/21/19 16:49 Dose: 4 mg Oxybutynin Chloride (Ditropan -) 10 mg PO DAILY [facility] Last Admin: 01/22/19 09:00 Dose: 10 mg Pantoprazole Sodium (Protonix -) 20 mg PO DAILY [facility] Last Admin: 01/22/19 08:59 Dose: 20 mg Polyethylene Glycol (Miralax (For Daily Use) -) 17 gm PO DAILY [facility] Last Admin: 01/22/19 09:10 Dose: 17 gm Rosuvastatin Calcium (Crestor -) 20 mg PO HS [facility] Last Admin: 01/21/19 21:48 Dose: 20 mg - Objective Vital Signs: Vital Signs Temperature 98.7 F 01/22/19 09:24 Pulse Rate 76 01/22/19 09:24 Respiratory Rate 18 01/22/19 09:24 Blood Pressure 138/67 01/22/19 09:24 O2 Sat by Pulse Oximetry (%) 96 01/21/19 09:00 Constitutional: Yes: No Distress, Calm Neck: Yes: Supple Cardiovascular: Yes: Regular Rate and Rhythm Respiratory: Yes: Regular, CTA Bilaterally Gastrointestinal: Yes: Normal Bowel Sounds, Soft Edema: No Labs: CBC, BMP 01/22/19 05:45 01/22/19 05:45 INR, PTT INR 1.17 (0.83-1.09) H 01/12/19 10:36 Problem List - Problems (1) Toxic metabolic encephalopathy Code(s): G92 - TOXIC ENCEPHALOPATHY (2) Anemia Code(s): D64.9 - ANEMIA, UNSPECIFIED Qualifiers: Anemia type: iron deficiency Iron deficiency anemia type: chronic blood loss Qualified Code(s): D50.0 - Iron deficiency anemia secondary to blood loss (chronic) (3) UTI (urinary tract infection) Code(s): N39.0 - URINARY TRACT INFECTION, SITE NOT SPECIFIED Qualifiers: Hematuria presence: without hematuria (4) Chronic anticoagulation Code(s): Z79.01 - ASSISTED (CURRENT) USE OF ANTICOAGULANTS (5) Chronic ischemic right middle cerebral artery (MCA) stroke Code(s): I69.30 - UNSPECIFIED SEQUELAE OF CEREBRAL INFARCTION (6) Coronary artery disease Code(s): I25.10 - ATHSCL HEART DISEASE OF [place] CORONARY ARTERY W/O ANG PCTRS Qualifiers: Coronary Disease-Associated Artery/Lesion type: [place] artery [place] vs. transplanted heart: [place] heart Associated angina: without angina Qualified Code(s): I25.10 - Atherosclerotic heart disease of [place] coronary artery without angina pectoris (7) Hyperlipidemia Code(s): E78.5 - HYPERLIPIDEMIA, UNSPECIFIED Qualifiers: Hyperlipidemia type: pure hypercholesterolemia Qualified Code(s): E78.00 - Pure hypercholesterolemia, unspecified; E78.0 - Pure hypercholesterolemia (8) Hypertension Code(s): I10 - ESSENTIAL (PRIMARY) HYPERTENSION Qualifiers: Hypertension type: essential hypertension Qualified Code(s): I10 - Essential (primary) hypertension (9) S/P coronary artery stent placement Code(s): Z95.5 - PRESENCE OF CORONARY ANGIOPLASTY IMPLANT AND GRAFT Assessment/Plan 01/13/2019 Echo: Normal LV size and fxn, mod HARDY, mod TR RVSP 40-50 mmHg, mod MR , abnl LV compliance 1. Resolved toxic metabolic encephelopathy referable to UTI 2. CAD s/p PCI/DEAN, angina pectoris 3. HTN 4. Hypercholesterolemia 5. History of breast CA s/p lumpectomy 6. Previous history of syncope 7. History of DVT and PTE 8. Left subclavian steal suspect plan for stent as outpatient 9. Right carotid stenosis plan for angiogram 10. Iron deficiency anemia PLAN: 1. Completed abx course 2. GI and Heme recs noted, maintain PPI, outpatient capsule endoscopy to evaluate SB 3. Continue Carvedilol 12.5 bid and Enalapril 5 qd with uptitration as tolerated 4. Agree with decrease Eliquis 2.5 bid with PPI, hold 2 days prior to procedure and resume once post-op hemostasis achieved, declines transfusions Shinto, continues IV Venofer and Procrit 5. Continue Rosuvastatin 20 qhs
--- NOTE | 2019-01-22 11:18 | PN ---
Progress Note (short form) - Note Progress Note: pt seen/ examined chart reviewed Vital Signs Temp 98.7 F 01/22/19 09:24 Pulse 76 01/22/19 09:24 Resp 18 01/22/19 09:24 BP 138/67 01/22/19 09:24 Pulse Ox 96 01/21/19 09:00 Intake & Output 01/21/19 01/21/19 01/22/19 11:59 23:59 11:59 Intake Total 250 950 Output Total 650 Balance 250 300 Intake: IVPB 100 Oral 250 850 Output: Emesis 650 Other: Voiding Method Bedside Commode Bedside Commode Bedside Commode # Unmeasured Voids Void 1 3 1 Bowel Movement Yes No No # Bowel Movements 1 Active Medications Acetaminophen (Tylenol -) 650 mg PO Q6H PRN PRN Reason: PAIN Al Hydroxide/Mg Hydroxide (Mylanta Oral Suspension -) 30 ml PO Q6H PRN PRN Reason: DYSPEPSIA Last Admin: 01/19/19 13:59 Dose: 30 ml Apixaban (Eliquis -) 2.5 mg PO BID [facility] Last Admin: 01/22/19 08:59 Dose: 2.5 mg Carvedilol (Coreg -) 12.5 mg PO BID [facility] Last Admin: 01/22/19 08:59 Dose: 12.5 mg Enalapril Maleate (Vasotec -) 5 mg PO DAILY [facility] Last Admin: 01/22/19 08:59 Dose: 5 mg Epoetin John (Procrit -) 20,000 unit SQ DAILY [facility] Stop: 01/23/19 10:01 Last Admin: 01/22/19 10:24 Dose: 20,000 unit Folic Acid (Folic Acid -) 1 mg PO DAILY [facility] Last Admin: 01/22/19 09:01 Dose: 1 mg Gabapentin (Neurontin -) 300 mg PO [facility] Last Admin: 01/21/19 21:48 Dose: 300 mg Iron Sucrose 100 mg/ Sodium (Chloride) 100 mls @ 200 mls/hr IVPB DAILY [facility] Stop: 01/25/19 10:29 Last Admin: 01/22/19 10:21 Dose: 200 mls/hr Ondansetron HCl (Zofran Injection) 4 mg IVPUSH Q6H PRN PRN Reason: NAUSEA AND/OR VOMITING Last Admin: 01/21/19 16:49 Dose: 4 mg Oxybutynin Chloride (Ditropan -) 10 mg PO DAILY [facility]ANTHA Last Admin: 01/22/19 09:00 Dose: 10 mg Pantoprazole Sodium (Protonix -) 20 mg PO DAILY [facility] Last Admin: 01/22/19 08:59 Dose: 20 mg Polyethylene Glycol (Miralax (For Daily Use) -) 17 gm PO DAILY [facility] Last Admin: 01/22/19 09:10 Dose: 17 gm Rosuvastatin Calcium (Crestor -) 20 mg PO HS [facility] Last Admin: 01/21/19 21:48 Dose: 20 mg CBC, BMP 01/22/19 05:45 01/22/19 05:45 S1 S2 RRR Lungs clear Abd- soft, obese, NT, BS+, not distended No edema Left arm weakness= same Facial droop same as previous PLAN tolerating diet ambulating well venofer x 8 days total-- will complete on Friday Continue wth PPI procrit per Hematology, Vit B 12 HCT better decrease Eliquis -- pt is on anticoagulation for 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 and h/ o CVA - does not have Afib iron studies Pt does not want transfusion== she is Jehovah witness monitor Hb will follow
[2019-01-22] MEDS: ACETAMINOPHEN 325 MG TABLET (FP) PO PRN (13:21)
--- NOTE | 2019-01-22 20:33 | PN ---
Progress Note (short form) - Note Progress Note: Patient seen and exained Feels better reports coffee ground emitus at home prior to admiassion Last Vital Signs Temp Pulse Resp BP Pulse Ox 99.5 F 71 18 109/43 L 97 01/23/19 15:08 01/23/19 15:08 01/23/19 15:08 01/23/19 15:08 01/23/19 09:00 Cor: RSR, No murmurs, No gallops Lungs: Clear to P&A Abd: Soft, Normal bowel sounds, No organomegaly Ext:No significant edema Active Medications Generic Name Dose Route Start Last Admin Trade Name Freq PRN Reason Stop Dose Admin Acetaminophen 650 mg 01/21/19 13:00 01/22/19 13:21 Tylenol - PO 650 mg Q6H PRN Administration PAIN Al Hydroxide/Mg Hydroxide 30 ml 01/17/19 18:07 01/19/19 13:59 Mylanta Oral Suspension - PO 30 ml Q6H PRN Administration DYSPEPSIA Apixaban 2.5 mg 01/19/19 10:00 01/23/19 09:36 Eliquis - PO 2.5 mg BID SAMANTHA Administration Carvedilol 12.5 mg 01/19/19 10:00 01/23/19 09:36 Coreg - PO 12.5 mg BID SAMANTHA Administration Enalapril Maleate 5 mg 01/20/19 10:00 01/23/19 09:36 Vasotec - PO 5 mg DAILY SAMANTHA Administration Folic Acid 1 mg 01/19/19 10:00 01/23/19 09:36 Folic Acid - PO 1 mg DAILY SAMANTHA Administration Gabapentin 300 mg 01/19/19 22:00 01/22/19 21:02 Neurontin - PO 300 mg HS SAMANTHA Administration Iron Sucrose 100 mg/ Sodium 100 mls @ 200 mls/hr 01/18/19 16:30 01/23/19 09: 37 Chloride IVPB 01/25/19 10:29 200 mls/hr DAILY SAMANTHA Administration Ondansetron HCl 4 mg 01/18/19 23:55 01/21/19 16:49 Zofran Injection IVPUSH 4 mg Q6H PRN Administration NAUSEA AND/OR VOMITING Oxybutynin Chloride 10 mg 01/19/19 10:00 01/23/19 09:36 Ditropan - PO 10 mg DAILY SAMANTHA Administration Pantoprazole Sodium 20 mg 01/19/19 10:00 01/23/19 09:36 Protonix - PO 20 mg DAILY SAMANTHA Administration Polyethylene Glycol 17 gm 01/19/19 10:00 01/23/19 09:36 Miralax (For Daily Use) - PO 17 gm DAILY SAMANTHA Administration Rosuvastatin Calcium 20 mg 01/19/19 22:00 01/22/19 21:02 Crestor - PO 20 mg HS SAMANTHA Administration a/p 67 yo F with h/o HTN, HLD, NIDDM, CKD, CAD s/p R CEA, [place] s/p stent placement, CVA, BRCA+ Breast Ca ( Tamoxifen) , PE, and DVTs, who presents with near syncopal episode. 1. Breast cancer h/o T1c , N0, ER+/FL-/HEr2 + by FISH ,stage IA,poorly differentiated right breast cancer 01/05, while on arimidex for early stage left breast cancer. .h/o b /l mastectomies 02/04. h/o BRCA positivity h/o Abhay/BSO at age 26 Due to multiple comorbidities including moderate to severe LV dysfunction ( LVEF 25% at that time) patient was not a candidate for Her 2 based therapy. She was switched to tamoxifen stable on tamoxifen 2. Anemia, iron deficiency, jehovahs witness Currently she is refusing PRBCs. She stated she may change her decision in future based on circumstances. At this time she is refusing PRBCS even if severe anemia. Discussed risks/benefits of procrit and complications including thrombotic CVA/I/HTN etc. She understands benefits/risks of procrit and is consenting to it as she does not want PRBCs at this time will give iv iron 100mg daily x 8 days, B12, folate on procrit 20,000 U SC daily will discuss with gi team 3. UTI on rocephin 4. h/o dvt/pe and then 2nd episode of dvt perioperatively in 01/2016 --on eliquis
[2019-01-22] MEDS: ROSUVASTATIN CA 20 MG TABLET (FP) PO SCH (21:02)
[2019-01-22] MEDS: GABAPENTIN 300 MG CAPSULE (FP) PO SCH (21:02)
--- NOTE | 2019-01-23 08:53 | PN ---
Progress Note (short form) - Note Progress Note: pt seen/ examined comfortable no new issues mood pleasant. Vital Signs Temp 98.1 F 01/23/19 06:00 Pulse 79 01/23/19 06:00 Resp 18 01/23/19 06:00 BP 135/49 L 01/23/19 06:00 Pulse Ox 96 01/22/19 20:58 Intake & Output 01/22/19 01/22/19 01/23/19 11:59 23:59 11:59 Intake Total 1220 0 Balance 1220 0 Intake: IV 0 sl 0 IVPB 100 Oral 1120 0 Other: Voiding Method Bedside Commode Bedside Commode # Unmeasured Voids Void 1 1 2 Bowel Movement No No Active Medications Acetaminophen (Tylenol -) 650 mg PO Q6H PRN PRN Reason: PAIN Last Admin: 01/22/19 13:21 Dose: 650 mg Al Hydroxide/Mg Hydroxide (Mylanta Oral Suspension -) 30 ml PO Q6H PRN PRN Reason: DYSPEPSIA Last Admin: 01/19/19 13:59 Dose: 30 ml Apixaban (Eliquis -) 2.5 mg PO BID [facility] Last Admin: 01/22/19 21:02 Dose: 2.5 mg Carvedilol (Coreg -) 12.5 mg PO BID [facility] Last Admin: 01/22/19 21:02 Dose: 12.5 mg Enalapril Maleate (Vasotec -) 5 mg PO DAILY [facility] Last Admin: 01/22/19 08:59 Dose: 5 mg Epoetin John (Procrit -) 20,000 unit SQ DAILY [facility] Stop: 01/23/19 10:01 Last Admin: 01/22/19 10:24 Dose: 20,000 unit Folic Acid (Folic Acid -) 1 mg PO DAILY [facility] Last Admin: 01/22/19 09:01 Dose: 1 mg Gabapentin (Neurontin -) 300 mg PO HS [facility] Last Admin: 01/22/19 21:02 Dose: 300 mg Iron Sucrose 100 mg/ Sodium (Chloride) 100 mls @ 200 mls/hr IVPB DAILY [facility] Stop: 01/25/19 10:29 Last Admin: 01/22/19 10:21 Dose: 200 mls/hr Ondansetron HCl (Zofran Injection) 4 mg IVPUSH Q6H PRN PRN Reason: NAUSEA AND/OR VOMITING Last Admin: 01/21/19 16:49 Dose: 4 mg Oxybutynin Chloride (Ditropan -) 10 mg PO DAILY [facility] Last Admin: 01/22/19 09:00 Dose: 10 mg Pantoprazole Sodium (Protonix -) 20 mg PO DAILY [facility] Last Admin: 01/22/19 08:59 Dose: 20 mg Polyethylene Glycol (Miralax (For Daily Use) -) 17 gm PO DAILY [facility] Last Admin: 01/22/19 09:10 Dose: 17 gm Rosuvastatin Calcium (Crestor -) 20 mg PO HS [facility] Last Admin: 01/22/19 21:02 Dose: 20 mg CBC, BMP 01/22/19 05:45 01/22/19 05:45 Physical Exam awake/ comfortable S1 S2 RRR Lungs clear Abd- soft, obese, NT, BS+, not distended No edema Left arm weakness= same Facial droop same as previous PLAN tolerating diet ambulating well venofer x 8 days total-- will complete on Friday Continue wth PPI procrit per Hematology, Vit B 12 HCT stable Pt does not want transfusion== she is Jehovah witness monitor Hb will follow
--- NOTE | 2019-01-23 09:11 | PN ---
Progress Note, Physician - Current Medication List Current Medications: Active Medications Acetaminophen (Tylenol -) 650 mg PO Q6H PRN PRN Reason: PAIN Last Admin: 01/22/19 13:21 Dose: 650 mg Al Hydroxide/Mg Hydroxide (Mylanta Oral Suspension -) 30 ml PO Q6H PRN PRN Reason: DYSPEPSIA Last Admin: 01/19/19 13:59 Dose: 30 ml Apixaban (Eliquis -) 2.5 mg PO BID [facility] Last Admin: 01/22/19 21:02 Dose: 2.5 mg Carvedilol (Coreg -) 12.5 mg PO BID [facility] Last Admin: 01/22/19 21:02 Dose: 12.5 mg Enalapril Maleate (Vasotec -) 5 mg PO DAILY [facility] Last Admin: 01/22/19 08:59 Dose: 5 mg Epoetin John (Procrit -) 20,000 unit SQ DAILY [facility] Stop: 01/23/19 10:01 Last Admin: 01/22/19 10:24 Dose: 20,000 unit Folic Acid (Folic Acid -) 1 mg PO DAILY [facility] Last Admin: 01/22/19 09:01 Dose: 1 mg Gabapentin (Neurontin -) 300 mg PO HS [facility] Last Admin: 01/22/19 21:02 Dose: 300 mg Iron Sucrose 100 mg/ Sodium (Chloride) 100 mls @ 200 mls/hr IVPB DAILY [facility] Stop: 01/25/19 10:29 Last Admin: 01/22/19 10:21 Dose: 200 mls/hr Ondansetron HCl (Zofran Injection) 4 mg IVPUSH Q6H PRN PRN Reason: NAUSEA AND/OR VOMITING Last Admin: 01/21/19 16:49 Dose: 4 mg Oxybutynin Chloride (Ditropan -) 10 mg PO DAILY [facility] Last Admin: 01/22/19 09:00 Dose: 10 mg Pantoprazole Sodium (Protonix -) 20 mg PO DAILY [facility] Last Admin: 01/22/19 08:59 Dose: 20 mg Polyethylene Glycol (Miralax (For Daily Use) -) 17 gm PO DAILY [facility] Last Admin: 01/22/19 09:10 Dose: 17 gm Rosuvastatin Calcium (Crestor -) 20 mg PO HS [facility] Last Admin: 01/22/19 21:02 Dose: 20 mg - Objective Vital Signs: Vital Signs Temperature 98.1 F 01/23/19 06:00 Pulse Rate 79 01/23/19 06:00 Respiratory Rate 18 01/23/19 06:00 Blood Pressure 135/49 L 01/23/19 06:00 O2 Sat by Pulse Oximetry (%) 96 01/22/19 20:58 Eyes: Yes: WNL, Conjunctiva Clear, EOM Intact HENT: Yes: WNL, Atraumatic, Normocephalic Neck: Yes: WNL, Supple, Trachea Midline Cardiovascular: Yes: WNL, Regular Rate and Rhythm Respiratory: Yes: WNL, Regular, CTA Bilaterally Gastrointestinal: Yes: WNL, Normal Bowel Sounds Genitourinary: Yes: WNL Musculoskeletal: Yes: WNL Extremities: Yes: WNL Edema: No Integumentary: Yes: WNL Neurological: Yes: WNL, Alert, Oriented ...Motor Strength: WNL Psychiatric: Yes: WNL Labs: CBC, BMP 01/22/19 05:45 01/22/19 05:45 INR, PTT INR 1.17 (0.83-1.09) H 01/12/19 10:36 Assessment/Plan Assessment/Plan 01/13/2019 Echo: Normal LV size and fxn, mod HARDY, mod TR RVSP 40-50 mmHg, mod MR , abnl LV compliance 1. Resolved toxic metabolic encephelopathy referable to UTI 2. CAD s/p PCI/DEAN, angina pectoris 3. HTN 4. Hypercholesterolemia 5. History of breast CA s/p lumpectomy 6. Previous history of syncope 7. History of DVT and PTE 8. Left subclavian steal suspect plan for stent as outpatient 9. Right carotid stenosis plan for angiogram 10. Iron deficiency anemia PLAN: 1. Completed abx course 2. GI and Heme recs noted, maintain PPI, outpatient capsule endoscopy to evaluate SB 3. Continue Carvedilol 12.5 bid and Enalapril 5 qd with uptitration as tolerated 4. Agree with decrease Eliquis 2.5 bid with PPI, hold 2 days prior to procedure and resume once post-op hemostasis achieved, declines transfusions Christianity, continues IV Venofer and Procrit 5. Continue Rosuvastatin [address] Hyman
[2019-01-23] MEDS ORDERED: PT OWN MED DRAWER 7, Y5N ONE (09:28)
[2019-01-23] MEDS: POLYETHYLENE GLYCOL 3350 119 GM BTL PO SCH (09:36)
[2019-01-23] MEDS: OXYBUTYNIN CHLORIDE 5 MG TABLET PO SCH (09:36)
[2019-01-23] MEDS: APIXABAN 2.5 MG TABLET PO SCH ×2 (09:36→21:44)
[2019-01-23] MEDS: ENALAPRIL MALEATE 5 MG TABLET (FP) PO SCH (09:36)
[2019-01-23] MEDS: PANTOPRAZOLE 20 MG TABLET (FP) PO SCH (09:36)
[2019-01-23] MEDS: FOLIC ACID 1 MG TABLET (FP) PO SCH (09:36)
[2019-01-23] MEDS: CARVEDILOL 12.5 MG TABLET (FP) PO SCH ×2 (09:36→21:44)
[2019-01-23] MEDS: IRON SUCROSE INJECTION 100 MG in SODIUM CHLORIDE 95 ML IVPB SCH (09:37)
[2019-01-23] MEDS: EPOETIN ALFA 20,000 UNIT/1 ML VIAL SQ SCH (11:42)
[2019-01-23] MEDS: ACETAMINOPHEN 325 MG TABLET (FP) PO PRN (17:53)
[2019-01-23] MEDS: GABAPENTIN 300 MG CAPSULE (FP) PO SCH (21:44)
[2019-01-23] MEDS: ROSUVASTATIN CA 20 MG TABLET (FP) PO SCH (21:44)
--- NOTE | 2019-01-24 09:36 | PN ---
Progress Note, Physician - Current Medication List Current Medications: Active Medications Acetaminophen (Tylenol -) 650 mg PO Q6H PRN PRN Reason: PAIN Last Admin: 01/23/19 17:53 Dose: 650 mg Al Hydroxide/Mg Hydroxide (Mylanta Oral Suspension -) 30 ml PO Q6H PRN PRN Reason: DYSPEPSIA Last Admin: 01/19/19 13:59 Dose: 30 ml Apixaban (Eliquis -) 2.5 mg PO BID [facility] Last Admin: 01/23/19 21:44 Dose: 2.5 mg Carvedilol (Coreg -) 12.5 mg PO BID [facility] Last Admin: 01/23/19 21:44 Dose: 12.5 mg Enalapril Maleate (Vasotec -) 5 mg PO DAILY [facility] Last Admin: 01/23/19 09:36 Dose: 5 mg Folic Acid (Folic Acid -) 1 mg PO DAILY [facility] Last Admin: 01/23/19 09:36 Dose: 1 mg Gabapentin (Neurontin -) 300 mg PO HS [facility] Last Admin: 01/23/19 21:44 Dose: 300 mg Iron Sucrose 100 mg/ Sodium (Chloride) 100 mls @ 200 mls/hr IVPB DAILY [facility] Stop: 01/25/19 10:29 Last Admin: 01/23/19 09:37 Dose: 200 mls/hr Ondansetron HCl (Zofran Injection) 4 mg IVPUSH Q6H PRN PRN Reason: NAUSEA AND/OR VOMITING Last Admin: 01/21/19 16:49 Dose: 4 mg Oxybutynin Chloride (Ditropan -) 10 mg PO DAILY [facility] Last Admin: 01/23/19 09:36 Dose: 10 mg Pantoprazole Sodium (Protonix -) 20 mg PO DAILY [facility] Last Admin: 01/23/19 09:36 Dose: 20 mg Polyethylene Glycol (Miralax (For Daily Use) -) 17 gm PO DAILY [facility] Last Admin: 01/23/19 09:36 Dose: 17 gm Rosuvastatin Calcium (Crestor -) 20 mg PO HS [facility] Last Admin: 01/23/19 21:44 Dose: 20 mg - Objective Vital Signs: Vital Signs Temperature 98.9 F 01/24/19 08:51 Pulse Rate 84 01/24/19 08:51 Respiratory Rate 20 01/24/19 08:51 Blood Pressure 126/58 L 01/24/19 08:51 O2 Sat by Pulse Oximetry (%) 97 01/23/19 21:00 Eyes: Yes: WNL, Conjunctiva Clear, EOM Intact. No: Tearing HENT: Yes: WNL, Atraumatic, Normocephalic Neck: Yes: WNL, Supple, Trachea Midline Cardiovascular: Yes: WNL, Regular Rate and Rhythm Respiratory: Yes: WNL, Regular, CTA Bilaterally Gastrointestinal: Yes: WNL, Normal Bowel Sounds Genitourinary: Yes: WNL Musculoskeletal: Yes: WNL Extremities: Yes: WNL Edema: No Integumentary: Yes: WNL ...Motor Strength: WNL Psychiatric: Yes: WNL Labs: CBC, BMP 01/22/19 05:45 01/22/19 05:45 INR, PTT INR 1.17 (0.83-1.09) H 01/12/19 10:36 Assessment/Plan Assessment/Plan 01/13/2019 Echo: Normal LV size and fxn, mod HARDY, mod TR RVSP 40-50 mmHg, mod MR , abnl LV compliance 1. Resolved toxic metabolic encephelopathy referable to UTI 2. CAD s/p PCI/DEAN, angina pectoris 3. HTN 4. Hypercholesterolemia 5. History of breast CA s/p lumpectomy 6. Previous history of syncope 7. History of DVT and PTE 8. Left subclavian steal suspect plan for stent as outpatient 9. Right carotid stenosis plan for angiogram 10. Iron deficiency anemia PLAN: 1. Completed abx course 2. GI and Heme recs noted, maintain PPI, outpatient capsule endoscopy to evaluate SB 3. Continue Carvedilol 12.5 bid and Enalapril 5 qd with uptitration as tolerated 4. Agree with decrease Eliquis 2.5 bid with PPI, hold 2 days prior to procedure and resume once post-op hemostasis achieved, declines transfusions Restorationist, continues IV Venofer and Procrit 5. Continue Rosuvastatin [address] Hyman
[2019-01-24] MEDS: PANTOPRAZOLE 20 MG TABLET (FP) PO SCH (10:45)
[2019-01-24] MEDS: OXYBUTYNIN CHLORIDE 5 MG TABLET PO SCH (10:45)
[2019-01-24] MEDS: FOLIC ACID 1 MG TABLET (FP) PO SCH (10:45)
[2019-01-24] MEDS: APIXABAN 2.5 MG TABLET PO SCH ×2 (10:45→21:12)
[2019-01-24] MEDS: CARVEDILOL 12.5 MG TABLET (FP) PO SCH ×2 (10:45→21:13)
[2019-01-24] MEDS: IRON SUCROSE INJECTION 100 MG in SODIUM CHLORIDE 95 ML IVPB SCH (10:46)
[2019-01-24] MEDS: ENALAPRIL MALEATE 5 MG TABLET (FP) PO SCH (10:46)
[2019-01-24] MEDS: POLYETHYLENE GLYCOL 3350 119 GM BTL PO SCH (10:46)
--- NOTE | 2019-01-24 11:36 | PN ---
Progress Note (short form) - Note Progress Note: pt seen/ examined comfortable no new issues mood pleasant. walks with walker Vital Signs Temp 98.9 F 01/24/19 08:51 Pulse 84 01/24/19 08:51 Resp 20 01/24/19 08:51 BP 126/58 L 01/24/19 08:51 Pulse Ox 97 01/23/19 21:00 Intake & Output 01/23/19 01/23/19 01/24/19 11:59 23:59 11:59 Intake Total 460 580 650 Balance 460 580 650 Intake: IV 0 sl 0 IVPB 100 Oral 460 480 650 Other: Voiding Method Bedside Commode Bedside Commode Bedside Commode # Unmeasured Voids Void 1 2 1 Bowel Movement No No No Active Medications Acetaminophen (Tylenol -) 650 mg PO Q6H PRN PRN Reason: PAIN Last Admin: 01/22/19 13:21 Dose: 650 mg Al Hydroxide/Mg Hydroxide (Mylanta Oral Suspension -) 30 ml PO Q6H PRN PRN Reason: DYSPEPSIA Last Admin: 01/19/19 13:59 Dose: 30 ml Apixaban (Eliquis -) 2.5 mg PO BID [facility] Last Admin: 01/22/19 21:02 Dose: 2.5 mg Carvedilol (Coreg -) 12.5 mg PO BID [facility] Last Admin: 01/22/19 21:02 Dose: 12.5 mg Enalapril Maleate (Vasotec -) 5 mg PO DAILY [facility] Last Admin: 01/22/19 08:59 Dose: 5 mg Epoetin John (Procrit -) 20,000 unit SQ DAILY [facility] Stop: 01/23/19 10:01 Last Admin: 01/22/19 10:24 Dose: 20,000 unit Folic Acid (Folic Acid -) 1 mg PO DAILY [facility] Last Admin: 01/22/19 09:01 Dose: 1 mg Gabapentin (Neurontin -) 300 mg PO [facility] Last Admin: 01/22/19 21:02 Dose: 300 mg Iron Sucrose 100 mg/ Sodium (Chloride) 100 mls @ 200 mls/hr IVPB DAILY [facility] Stop: 01/25/19 10:29 Last Admin: 01/22/19 10:21 Dose: 200 mls/hr Ondansetron HCl (Zofran Injection) 4 mg IVPUSH Q6H PRN PRN Reason: NAUSEA AND/OR VOMITING Last Admin: 01/21/19 16:49 Dose: 4 mg Oxybutynin Chloride (Ditropan -) 10 mg PO DAILY [facility] Last Admin: 01/22/19 09:00 Dose: 10 mg Pantoprazole Sodium (Protonix -) 20 mg PO DAILY [facility] Last Admin: 01/22/19 08:59 Dose: 20 mg Polyethylene Glycol (Miralax (For Daily Use) -) 17 gm PO DAILY [facility] Last Admin: 01/22/19 09:10 Dose: 17 gm Rosuvastatin Calcium (Crestor -) 20 mg PO HS [facility] Last Admin: 01/22/19 21:02 Dose: 20 mg CBC, BMP 01/22/19 05:45 01/22/19 05:45 Physical Exam awake/ comfortable S1 S2 RRR Lungs clear Abd- soft, obese, NT, BS+, not distended No edema Left arm weakness= same Facial droop same as previous PLAN stable ambulating well venofer x 8 days total-- will complete on Friday Continue wth PPI procrit per Hematology, Vit B 12 HCT stable Pt does not want transfusion== she is Jehovah witness monitor Hb -- ordered for tomorrow will follow. anticipate d/c tomorrow
[2019-01-24] MEDS: MAG HYDROX/AL HYDROX/SIMETH 30 ML UNIT-DOSE CUP PO PRN (13:49)
[2019-01-24 18:44] VITALS: TEMP 98.4
[2019-01-24] MEDS: ROSUVASTATIN CA 20 MG TABLET (FP) PO SCH (21:12)
[2019-01-24] MEDS: GABAPENTIN 300 MG CAPSULE (FP) PO SCH (21:13)
[2019-01-25 07:43] LABS: HEMATOCRIT 29.7 % (32.4-45.2); HEMOGLOBIN 8.8 GM/dL (10.7-15.3); MCH 26.2 pg (25.7-33.7); MCHC 29.6 g/dl (32.0-36.0); MEAN CELL VOLUME 88.4 fl (80-96); MEAN PLT VOLUME 8.8 fl (7.5-11.1); PLATELET COUNT 353 K/MM3 (134-434); RBC 3.36 M/mm3 (3.60-5.2); RDW 18.5 % (11.6-15.6)
[2019-01-25 09:33] LABS: ADD RBC MORPHOLOGY YES; WHITE BLOOD COUNT 6.6 K/mm3 (4.0-10.0)
[2019-01-25] MEDS ORDERED: PT OWN MED DRAWER 7, Y5N ONE (09:37)
[2019-01-25] MEDS: CARVEDILOL 12.5 MG TABLET (FP) PO SCH ×2 (09:39→12:11)
[2019-01-25] MEDS: FOLIC ACID 1 MG TABLET (FP) PO SCH (09:39)
[2019-01-25] MEDS: OXYBUTYNIN CHLORIDE 5 MG TABLET PO SCH (09:39)
[2019-01-25] MEDS: APIXABAN 2.5 MG TABLET PO SCH (09:39)
[2019-01-25] MEDS: PANTOPRAZOLE 20 MG TABLET (FP) PO SCH (09:39)
[2019-01-25] MEDS: ENALAPRIL MALEATE 5 MG TABLET (FP) PO SCH (09:40)
[2019-01-25] MEDS: POLYETHYLENE GLYCOL 3350 119 GM BTL PO SCH (09:43)
[2019-01-25] MEDS: IRON SUCROSE INJECTION 100 MG in SODIUM CHLORIDE 95 ML IVPB SCH (10:43)
--- NOTE | 2019-01-25 11:51 | DS ---
Physical Examination Vital Signs: Vital Signs Temperature 98.4 F 01/25/19 09:24 Pulse Rate 72 01/25/19 09:24 Respiratory Rate 24 H 01/25/19 09:24 Blood Pressure 104/42 L 01/25/19 09:24 O2 Sat by Pulse Oximetry (%) 97 01/24/19 21:00 Findings/Remarks: feels well no complains walks with walker Constitutional: Yes: No Distress, Calm Eyes: Yes: Conjunctiva Clear Neck: Yes: Supple Cardiovascular: Yes: Regular Rate and Rhythm Respiratory: Yes: CTA Bilaterally Gastrointestinal: Yes: Soft Edema: No Neurological: Yes: Alert, Pre-Existing Deficit Psychiatric: Yes: Alert Labs: CBC, BMP 01/25/19 06:15 01/22/19 05:45 Discharge Summary Reason For Visit: TIA Current Active Problems Anemia (Acute) TIA (transient ischemic attack) (Acute) Toxic metabolic encephalopathy (Acute) UTI (urinary tract infection) (Acute) Vomiting (Acute) Hospital Course: 68 F with h/o breast CA, PE/DVT and stroke in 2005 residual left sided weakness presenting to ED with AMS. Per EMS, 911 was called by nurse practitioner home assessments who found pt altered this morning. They are unable to confirm a last known normal, though it was likely yesterday. Upon EMS arrival, pt was reportedly awake, alert, oriented to self only. En route, pt had sudden decompensation, becoming non- verbal. In ED, pt able to answer yes or no questions but AnOx0. Pt unable to contribute any additional history but endorses current chest pain and abdominal pain. cva ruled out pt also seen by gi / hematology for anemia given venofer now stable for d/c meds reconcilled discussed with pt in detail discussed with nursing staff also will d/c today f/u in office in one week pt in agreement Condition: Stable - Instructions Disposition: HOME - Home Medications Comprehensive Discharge Medication List: Ambulatory Orders Apixaban [Eliquis] 5 mg PO BID 08/25/17 Carvedilol [Coreg -] 25 mg PO BID tablet 08/28/17 Enalapril Maleate [Vasotec -] 5 mg PO BID tablet 08/28/17 Rosuvastatin [Crestor -] 20 mg PO HS tablet 08/28/17 Baclofen [Lioresal -] 10 mg PO BID 12/03/18 Calcium 500Mg/Vit-D 200 Units [Os-Jose 500+D -] 1 tab PO DAILY 12/03/18 Duloxetine HCl [Cymbalta -] 20 mg PO DAILY 12/03/18 Gabapentin [Neurontin] 300 mg PO HS 12/03/18 Omeprazole 40 mg PO DAILY 12/03/18 Oxybutynin Chloride [Oxybutynin Chloride ER] 10 mg PO DAILY 12/03/18 Benzocaine/Menthol [Cepacol Sore Throat Lozenge] 1 each PO DAILY PRN #30 lozenge 12/10/18 Folic Acid - 1 mg PO DAILY tablet 01/25/19
[2019-01-25 12:00] VITALS: BP 124/49; PULSE 78
--- NOTE | 2019-01-25 12:26 | PN ---
Progress Note, Physician History of Present Illness: Pt w/o complaints, plan for d/c. - Current Medication List Current Medications: Active Medications Acetaminophen (Tylenol -) 650 mg PO Q6H PRN PRN Reason: PAIN Last Admin: 01/23/19 17:53 Dose: 650 mg Al Hydroxide/Mg Hydroxide (Mylanta Oral Suspension -) 30 ml PO Q6H PRN PRN Reason: DYSPEPSIA Last Admin: 01/24/19 13:49 Dose: 30 ml Apixaban (Eliquis -) 2.5 mg PO BID [facility] Last Admin: 01/25/19 09:39 Dose: 2.5 mg Carvedilol (Coreg -) 12.5 mg PO BID [facility] Last Admin: 01/25/19 12:11 Dose: 12.5 mg Enalapril Maleate (Vasotec -) 5 mg PO DAILY [facility] Last Admin: 01/25/19 09:40 Dose: Not Given Folic Acid (Folic Acid -) 1 mg PO DAILY [facility] Last Admin: 01/25/19 09:39 Dose: 1 mg Gabapentin (Neurontin -) 300 mg PO [facility] Last Admin: 01/24/19 21:13 Dose: 300 mg Ondansetron HCl (Zofran Injection) 4 mg IVPUSH Q6H PRN PRN Reason: NAUSEA AND/OR VOMITING Last Admin: 01/21/19 16:49 Dose: 4 mg Oxybutynin Chloride (Ditropan -) 10 mg PO DAILY [facility] Last Admin: 01/25/19 09:39 Dose: 10 mg Pantoprazole Sodium (Protonix -) 20 mg PO DAILY [facility] Last Admin: 01/25/19 09:39 Dose: 20 mg Polyethylene Glycol (Miralax (For Daily Use) -) 17 gm PO DAILY [facility] Last Admin: 01/25/19 09:43 Dose: Not Given Rosuvastatin Calcium (Crestor -) 20 mg PO HS [facility] Last Admin: 01/24/19 21:12 Dose: 20 mg - Objective Vital Signs: Vital Signs Temperature 98.4 F 01/25/19 09:24 Pulse Rate 78 01/25/19 11:59 Respiratory Rate 24 H 01/25/19 11:59 Blood Pressure 124/49 L 01/25/19 11:59 O2 Sat by Pulse Oximetry (%) 97 01/24/19 21:00 Constitutional: Yes: No Distress, Calm Neck: Yes: Supple Cardiovascular: Yes: Regular Rate and Rhythm Respiratory: Yes: Regular, CTA Bilaterally Gastrointestinal: Yes: Normal Bowel Sounds, Soft Edema: No Labs: CBC, BMP 01/25/19 06:15 01/22/19 05:45 INR, PTT INR 1.17 (0.83-1.09) H 01/12/19 10:36 Problem List - Problems (1) Toxic metabolic encephalopathy Code(s): G92 - TOXIC ENCEPHALOPATHY (2) Anemia Code(s): D64.9 - ANEMIA, UNSPECIFIED Qualifiers: Anemia type: iron deficiency Iron deficiency anemia type: chronic blood loss Qualified Code(s): D50.0 - Iron deficiency anemia secondary to blood loss (chronic) (3) UTI (urinary tract infection) Code(s): N39.0 - URINARY TRACT INFECTION, SITE NOT SPECIFIED Qualifiers: Hematuria presence: without hematuria (4) Chronic anticoagulation Code(s): Z79.01 - 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 transplanted heart: resighini heart Associated angina: without angina Qualified Code(s): I25.10 - Atherosclerotic heart disease of [place] coronary artery without angina pectoris (7) Hyperlipidemia Code(s): E78.5 - HYPERLIPIDEMIA, UNSPECIFIED Qualifiers: Hyperlipidemia type: pure hypercholesterolemia Qualified Code(s): E78.00 - Pure hypercholesterolemia, unspecified; E78.0 - Pure hypercholesterolemia (8) Hypertension Code(s): I10 - ESSENTIAL (PRIMARY) HYPERTENSION Qualifiers: Hypertension type: essential hypertension Qualified Code(s): I10 - Essential (primary) hypertension (9) S/P coronary artery stent placement Code(s): Z95.5 - PRESENCE OF CORONARY ANGIOPLASTY IMPLANT AND GRAFT Assessment/Plan 01/13/2019 Echo: Normal LV size and fxn, mod HARDY, mod TR RVSP 40-50 mmHg, mod MR , abnl LV compliance 1. Resolved toxic metabolic encephelopathy referable to UTI 2. CAD s/p PCI/DEAN, angina pectoris 3. HTN 4. Hypercholesterolemia 5. History of breast CA s/p lumpectomy 6. Previous history of syncope 7. History of DVT and PTE 8. Left subclavian steal suspect plan for stent as outpatient 9. Right carotid stenosis plan for angiogram 10. Iron deficiency anemia PLAN: 1. Completed abx course 2. GI and Heme recs noted, maintain PPI, outpatient capsule endoscopy to evaluate SB 3. Continue Carvedilol 12.5 bid and Enalapril 5 qd with uptitration as tolerated 4. Agree with decrease Eliquis 2.5 bid with PPI, hold 2 days prior to procedure and resumed once post-op hemostasis achieved, declines transfusions Voodoo, continues IV Venofer and Procrit 5. Continue Rosuvastatin 20 qhs
[2019-01-25] MEDS: ACETAMINOPHEN 325 MG TABLET (FP) PO PRN (12:47)
[2019-01-25 15:45] LABS: CORRECTED WBC 4.89 K/mm3; MACROCYTOSIS 1+; OVALOCYTE 1+
== END 2019-01-25 13:43 | disposition home or self-care (01) | DRG 811 ==
LOC: JER 09:49 → JERBED 13:21 → J2W 01-13 13:54 → J5S 01-18
PROVIDERS: ADMIT Internal Medicine; ATTEND Internal Medicine
DX: D50.9 Iron deficiency anemia, unspecified (principal); G92 Toxic encephalopathy; N39.0 Urinary tract infection, site not specified; I69.354 Hemiplegia and hemiparesis following cerebral infarction affecting left non-dominant side; R47.01 Aphasia; I50.32 Chronic diastolic (congestive) heart failure; I13.0 Hypertensive heart and chronic kidney disease with heart failure and stage 1 through stage 4 chronic kidney disease, or unspecified chronic kidney disease; Z53.1 Procedure and treatment not carried out because of patient's decision for reasons of belief and group pressure; E11.22 Type 2 diabetes mellitus with diabetic chronic kidney disease; N18.9 Chronic kidney disease, unspecified; I65.21 Occlusion and stenosis of right carotid artery; K44.9 Diaphragmatic hernia without obstruction or gangrene; R11.10 Vomiting, unspecified; R22.1 Localized swelling, mass and lump, neck; R29.810 Facial weakness; R47.1 Dysarthria and anarthria; E78.5 Hyperlipidemia, unspecified; I25.10 Atherosclerotic heart disease of native coronary artery without angina pectoris; Z86.711 Personal history of pulmonary embolism; Z86.718 Personal history of other venous thrombosis and embolism; Z85.3 Personal history of malignant neoplasm of breast; Z90.13 Acquired absence of bilateral breasts and nipples; Z95.5 Presence of coronary angioplasty implant and graft; Z87.891 Personal history of nicotine dependence; Z90.710 Acquired absence of both cervix and uterus
CPT/HCPCS: 36415; 70450-TC; 70498-TC; 70551-TC; 71275-TC; 74018-TC-FY; 74240-TC-FY; 76705-TC; 80053; 80061; 81003; 82465; 82550; 82728; 82962; 83540; 83550; 83718; 83721; 83883; 84155; 84165; 84443; 84478; 84484; 85025; 85027; 85044; 85610; 86850; 86900; 86901; 87086; 87186; 93005; 93010; 93306-TC; 95816; 97116-GP; 97161-GP; 99285-25; J0885; J1756; J7030

== ENCOUNTER 2019-03-08 09:28 | Emergency (ER) | payer OTHER | END 2019-03-08 14:05 | disposition home or self-care (01) | LOC: JER 09:28 ==

== ENCOUNTER 2019-05-23 15:07 | Inpatient (IN) | payer OTHER ==
--- NOTE | 2019-05-23 15:22 | PDOC ---
History of Present Illness - General Stated Complaint: FALL Time Seen by Provider: 05/23/19 15:21 - History of Present Illness Initial Comments: 05/23/19 16:44 68yo F hx HTN, CHF, CAD s/p stents, DVT, PE on eliquis, CKD, and CVA who presents after a fall while standing in her bathroom getting ready for religion. The patient reports that as she was standing she began to feel dizzy, but she denies LOC. She fell backward and hit the back of her head. She complains of back of the head pain, neck pain, R shoulder pain and R sided chest pain. She denies any nausea, diaphoresis, chest pain or shortness of breath at the times of the fall. She has no other complaints. ROS GENERAL/CONSTITUTIONAL: No fever or chills. No weakness. HEAD, EYES, EARS, NOSE AND THROAT: No change in vision. No ear pain or discharge. No sore throat. CARDIOVASCULAR: No chest pain or shortness of breath RESPIRATORY: No cough, wheezing, or hemoptysis. GASTROINTESTINAL: No nausea, vomiting, diarrhea or constipation. GENITOURINARY: No dysuria, frequency, or change in urination. MUSCULOSKELETAL: See HPI SKIN: No rash NEUROLOGIC: No headache, vertigo, loss of consciousness, or change in strength/ sensation. PE GENERAL: Awake, alert, and fully oriented, in no acute distress, in bed with C- collar HEAD: No signs of trauma, normocephalic, atraumatic EYES: EOMI, sclera anicteric, conjunctiva clear ENT: oropharynx clear without exudates. Moist mucosa NECK: c-collar in place, some tenderness to cspine LUNGS: No distress, speaks full sentences, clear to auscultation bilaterally HEART: Regular rate and rhythm, normal S1 and S2, no murmurs, rubs or gallops, peripheral pulses normal and equal bilaterally. ABDOMEN: Soft, nontender, normoactive bowel sounds. No guarding, no rebound. No masses EXTREMITIES : Normal inspection, Normal range of motion, no edema. No clubbing or cyanosis. NEUROLOGICAL: Cranial nerves II through XII grossly intact. Normal speech, no focal sensorimotor deficits SKIN: Warm, Dry, normal turgor, no rashes or lesions noted MDM DDX including but not limited to: r/o fx to ribs, R shoulder, pelvis presyncope, r/o acs vs dysarythmia r/o intracranial bleed W/U: - cbc, cmp coags, ct, cxr TX: - tylenol ED Course: Nasrin Rubalcava, PGY2 Emergency Medicine Past History - Past Medical History Allergies/Adverse Reactions: Allergies Allergy/AdvReac Type Severity Reaction Status Date / Time No Known Drug Allergies Allergy Verified 03/08/19 09:29 Home Medications: Ambulatory Orders Apixaban [Eliquis] 5 mg PO BID 08/25/17 Enalapril Maleate [Vasotec -] 5 mg PO BID tablet 08/28/17 Baclofen [Lioresal -] 10 mg PO BID 12/03/18 Calcium 500Mg/Vit-D 200 Units [Os-Jose 500+D -] 1 tab PO DAILY 12/03/18 Duloxetine HCl [Cymbalta -] 20 mg PO DAILY 12/03/18 Gabapentin [Neurontin] 300 mg PO HS 12/03/18 Oxybutynin Chloride [Oxybutynin Chloride ER] 10 mg PO DAILY 12/03/18 Carvedilol 25 mg PO DAILY 05/23/19 Simvastatin 20 mg PO DAILY 05/23/19 Tamoxifen Citrate 20 mg PO DAILY 05/23/19 Anemia: No Asthma: No Cancer: Yes (both breast) Cardiac Disorders: Yes (cad) CVA: Yes (x3) COPD: No CHF: No Dementia: No Diabetes: Yes GI Disorders: Yes (GERD) Disorders: No HTN: Yes Hypercholesterolemia: Yes Liver Disease: No Seizures: No Thyroid Disease: No - Surgical History Abdominal Surgery: No Appendectomy: No Cardiac Surgery: Yes (card stent x2) Cholecystectomy: No Lung Surgery: No Orthopedic Surgery: Yes (R. Foot bunionectomy) - Immunization History Immunization Up to Date: Yes - Suicide/Smoking/Psychosocial Hx Smoking Status: No Smoking History: Never smoked Have you smoked in the past 12 months: No Number of Cigarettes Smoked Daily: 0 If you are a former smoker, when did you quit?: 6 YEARS AGO Cigars Per Day: 24 'Breaking Loose' booklet given: 06/19/18 Hx Alcohol Use: No Drug/Substance Use Hx: No Substance Use Type: None Hx Substance Use Treatment: No *DC/Admit/Observation/Transfer - Referrals Referrals: Shreya Best MD [Primary Care Provider] - - Patient Instructions - Post Discharge Activity
[2019-05-23] MEDS ORDERED: ACETAMINOPHEN 1000 MG/100 ML VIAL (NON FORMULARY) IVPB ONE (16:32)
[2019-05-23] MEDS ORDERED: ACETAMINOPHEN INJECTION 100 ML IVPB ONE (18:41)
--- NOTE | 2019-05-23 18:42 | PDOC ---
Documentation entered by Lane Garcia SCRIBE, acting as scribe for Pepe Taylor MD. Pepe Taylor MD: This documentation has been prepared by the Radha rodriguez Nirvannie, SCRIBE, under my direction and personally reviewed by me in its entirety. I confirm that the documentation accurately reflects all work, treatment, procedures, and medical decision making performed by me. Attending Attestation - Resident Resident Name: [email or web address] - ED Attending Attestation I have performed the following: I have examined & evaluated the patient, The case was reviewed & discussed with the resident, I agree w/resident's findings & plan, Exceptions are as noted - HPI HPI: 05/23/19 18:38 The patient is a 68 year old female, with a significant past medical history of HTN, CHF, CAD s/p stents, DVT, PE, CKD, and CVA , who presents to the emergency department s/p fall. As per patient, she was getting ready for denominational at which time she began to feel lightheaded. Pt denies LOC but states she fell backwards from standing, hitting her head. While in the ED, she complains of pain to the neck, back of the head, right sided chest pain, and right shoulder pain. She denies SOB. Denies palpitations. She denies recent fevers or chills. She denies recent nausea, vomit, diarrhea or constipation. She denies recent dysuria, frequency, urgency or hematuria. Allergies: NKDA Primary Care Physician: Dr. Florentino Best - Physicial Exam PE: 05/23/19 18:45 "GENERAL: Awake, alert, and fully oriented, in no acute distress. HEAD: No signs of trauma EYES: PERRLA, EOMI, sclera anicteric, conjunctiva clear ENT: Auricles normal inspection, hearing grossly normal, nares patent, oropharynx clear without exudates. Moist mucosa NECK: Nontender, no stepoffs, Normal ROM, supple, no lymphadenopathy, JVD, or masses LUNGS: Breath sounds equal, clear to auscultation bilaterally. No wheezes, and no crackles HEART: Regular rate and rhythm, normal S1 and S2, no murmurs, rubs or gallops ABDOMEN: Soft, nontender, normoactive bowel sounds. No guarding, no rebound. No masses EXTREMITIES: Normal range of motion, no edema. No clubbing or cyanosis. No cords, erythema, or tenderness NEUROLOGICAL: Cranial nerves II through XII intact. 5/5 strength and sensation in all extremities, Normal speech, normal gait, normal cerebellar function SKIN: Warm, Dry, normal turgor, no rashes or lesions noted. - Medical Decision Making 05/23/19 18:45 69 F with pre-syncope and fall. - Labs, trop - EKG - CT head/c-spine - XRs - Admit tele
[2019-05-23 18:43] LABS: BASO % 1.1 % (0-2.0); EOS % 2.9 % (0-4.5); HEMATOCRIT 37.2 % (32.4-45.2); HEMOGLOBIN 11.6 GM/dL (10.7-15.3); LYMPH % 36.3 % (8-40); MCH 26.5 pg (25.7-33.7); MCHC 31.3 g/dl (32.0-36.0); MEAN CELL VOLUME 84.7 fl (80-96); MEAN PLT VOLUME 8.9 fl (7.5-11.1); MONO % 8.7 % (3.8-10.2); PLATELET COUNT 253 K/MM3 (134-434); RBC 4.39 M/mm3 (3.60-5.2); RDW 16.8 % (11.6-15.6)
[2019-05-23 19:03] LABS: INR 1.19 (0.83-1.09); PROTHROMBIN TIME (PATIENT) 14.1 SEC (9.7-13.0)
[2019-05-23 19:06] LABS: ACTIVATED PTT 24.7 SECONDS (25.2-36.5)
--- NOTE | 2019-05-23 19:07 | PDOC ---
*Physical Exam - Vital Signs Last Vital Signs Temp Pulse Resp BP Pulse Ox 98.7 F 63 18 131/67 100 05/23/19 15:07 05/23/19 15:07 05/23/19 15:07 05/23/19 15:07 05/23/19 15:07 - Physical Exam Comments: 05/23/19 19:44 Gen: Alert, NAD, comfortable-appearing. HEENT: PERRL, EOMI, MMM, NCAT. No conjunctival pallor. Sclera are non-icteric. CV: No TTP of sternum or ribs. Regular rate and rhythm. No murmurs, rubs, or gallops. PULM: No resp distress. CTAB, no wheezes, rales, or rhonchi. ABD: soft, NT/ND, no rebound tenderness or guarding, no CVA tenderness. BACK: No TTP of c/t/l-spine. No step-offs or deformities. MSK: No bony deformities. 2+ pulses in all extremities. NEURO: AAOx3. PERRL. No gross CN deficits. Strength and sensation grossly intact throughout. EXTREMITIES: +TTP of R shoulder, decreased ROM and strength of R shoulder 2/2 pain, RUE neurovascularly intact. No cyanosis. No clubbing. No edema. No calf tenderness. PSYCH: Normal mood and thought pattern. SKIN: Warm and dry. Normal capillary refill. No rashes. No jaundice. Heart Score/ECG Review - ECG Impressions Comment:: 05/23/19 19:44 Sinus rhythm with PVCs, 80bpm, 1 TWI in III, no JACKI elevations or depressions. No significant changes compared to 01/12/19. ED Treatment Course - LABORATORY CBC & Chemistry Diagram: 05/23/19 18:34 05/23/19 18:34 - ADDITIONAL ORDERS Additional order review: Laboratory Results 05/23/19 18:34 PT with INR 14.10 H INR 1.19 H PTT (Actin FS) 24.7 L 05/23/19 18:34 RBC 4.39 MCV 84.7 MCHC 31.3 L RDW 16.8 H MPV 8.9 Neutrophils % 51.0 Lymphocytes % 36.3 Monocytes % 8.7 Eosinophils % 2.9 Basophils % 1.1 - Medications Given in the ED: ED Medications Discontinued Medications Generic Name Dose Route Start Last Admin Trade Name Freq PRN Reason Stop Dose Admin Acetaminophen 1,000 mg 05/23/19 16:32 05/23/19 18:44 Ofirmev Injection - IVPB 05/23/19 16:33 1,000 mg ONCE ONE Administration Medical Decision Making - Medical Decision Making 05/23/19 19:34 Sign out received from Dr Espinoza. 69yo F hx HTN, CHF, CAD s/p stents, DVT, PE on eliquis, CKD, and CVA presents with pain of head, neck, R shoulder, and R ribs s/p presyncope and fall with head injury today. CTH and c-spine: no acute findings. Thyroid goiter seen - recommend US f/u. Labs reviewed. No concerning findings. Trop <0.02. Pending UA. EKG reviewed: Sinus rhythm with PVCs, 80bpm, 1 TWI in III, no JACKI elevations or depressions. No significant changes compared to 01/12/19. Pending XRs chest, R shoulder, pelvis. Pt seen and assessed at bedside. Pt states the pain is much better s/p tylenol IV. No complaints or questions at this time. Will admit to tele obs pending XRs. 05/23/19 21:32 XRs read by myself and Dr Wagner: no acute abnormalities. Due to thyroid goiter on CT, ordered TSH. Pt's TSHs throughout years normal, followed by endocrine doctor. Pt eating sandwich and juice. Signed out to hospitalist under Shreya Best. 05/23/19 22:10 TSH 0.86 *DC/Admit/Observation/Transfer Diagnosis at time of Disposition: Pre-syncope, Fall - Discharge Dispostion Condition at time of disposition: Improved Decision to Admit order: Yes - Referrals Referrals: Shreya Best MD [Primary Care Provider] - - Patient Instructions - Post Discharge Activity
[2019-05-23 19:22] LABS: ALBUMIN 3.8 g/dl (3.4-5.0); BILIRUBIN,TOTAL 0.5 mg/dL (0.2-1); BLOOD UREA NITROGEN 21.1 mg/dL (7-18); CALCIUM 9.8 mg/dL (8.5-10.1); CREATININE 1.1 mg/dL (0.55-1.3); POTASSIUM 4.6 mmol/L (3.5-5.1); TOT PROT 6.8 g/dl (6.4-8.2)
[2019-05-23] MEDS ORDERED: ENALAPRIL MALEATE 5 MG TABLET (FP) PO SCH (22:15)
--- NOTE | 2019-05-23 22:34 | HP ---
Admitting History and Physical - Primary Care Physician PCP: Shreya Best - Admission Chief Complaint: Dizziness, Fall History of Present Illness: This is a 69 y/o woman with significant medical history of HTN, HLD, CAD s/p PCI /DEAN, Angina, Diastolic Dysfunction, Carotid Stenosis s/p CEA, CVA (L- residual weakness), Vasovagal Syncope, DVT, PE s/p IVC Filter (on Eliquis), Breast Ca s/ p Lumpectomy, b/l Mastectomy, BRCA +, Schatzki Ring, Hiatal Hernia (EGD 2018), Anemia. Who presents to the ED with dizziness s/p fall R- shoulder pain x today. Patient reports falling in her bathroom, hitting her head and right shoulder. Patient denies LOC. She reports having "dizzy spells" regularly. Patient denies numbness or tingling. Patient denies fever, chills, cough, MONTIEL, SOB, CP, palpitations, AP, N/V/D, constipation, dysuria History Source: Patient Limitations to Obtaining History: No Limitations - Past Medical History [employer] COORDINATOR: Yes: CVA (? 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) Cardiovascular: Yes: CAD (with cardiac stenting x 2), Deep Vein Thrombosis, HTN , Hyperlipdemia Pulmonary: Yes: Pulmonary Embolus Gastrointestinal: Yes: Diverticulosis, Hiatal Hernia Heme/Onc: Yes: Other (DVT) - Past Surgical History Past Surgical History: Yes: Hysterectomy (ELIZABETH/BSO), Mastectomy (and lumpectomy) , Stent - Smoking History Smoking history: Former smoker Have you smoked in the past 12 months: No Aproximately how many cigarettes per day: 0 If you are a former smoker, when did you quit?: 6 YEARS AGO - Alcohol/Substance Use Hx Alcohol Use: No History of Substance Use: reports: None - Social History Usual Living Arrangement: Yes: Alone 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 History of Recent Travel: No Home Medications - Allergies Allergies/Adverse Reactions: Allergies Allergy/AdvReac Type Severity Reaction Status Date / Time No Known Drug Allergies Allergy Verified 03/08/19 09:29 - Home Medications Home Medications: Ambulatory Orders Apixaban [Eliquis] 5 mg PO BID 08/25/17 Enalapril Maleate [Vasotec -] 5 mg PO BID tablet 08/28/17 Baclofen [Lioresal -] 10 mg PO BID 12/03/18 Calcium 500Mg/Vit-D 200 Units [Os-Jose 500+D -] 1 tab PO DAILY 12/03/18 Duloxetine HCl [Cymbalta -] 20 mg PO HS 12/03/18 Gabapentin [Neurontin] 300 mg PO HS 12/03/18 Oxybutynin Chloride [Oxybutynin Chloride ER] 10 mg PO DAILY 12/03/18 Carvedilol 25 mg PO BID 05/23/19 Simvastatin 20 mg PO HS 05/23/19 Tamoxifen Citrate 20 mg PO DAILY 05/23/19 Family Disease History - Family Disease History Family Disease History: CA: Sister (6, alive: 1 with BCA), Other: Father ( 88: CHF), Mother (: 70's: CHF), Brother (6: : "heart problems"), Sister Review of Systems - Review of Systems Constitutional: reports: No Symptoms Eyes: reports: No Symptoms HENT: reports: No Symptoms Neck: reports: No Symptoms Cardiovascular: reports: No Symptoms Respiratory: reports: No Symptoms Gastrointestinal: reports: No Symptoms Genitourinary: reports: No Symptoms Breasts: reports: No Symptoms Reported Musculoskeletal: reports: Joint Pain Integumentary: reports: No Symptoms Neurological: reports: Dizziness, Syncope (near) Endocrine: reports: No Symptoms Hematology/Lymphatic: reports: No Symptoms Psychiatric: reports: No Symptoms Pain Intensity: 6 Physical Examination Vital Signs: Vital Signs Temperature 98.8 F 05/23/19 21:39 Pulse Rate 83 05/23/19 21:39 Respiratory Rate 18 05/23/19 21:39 Blood Pressure 104/77 05/23/19 21:39 O2 Sat by Pulse Oximetry (%) 100 05/23/19 21:39 Constitutional: Yes: Well Nourished, No Distress, Calm Eyes: Yes: WNL, Conjunctiva Clear, EOM Intact, PERRL HENT: Yes: WNL, Atraumatic, Normocephalic Neck: Yes: Supple, Trachea Midline, Thyromegaly Cardiovascular: Yes: WNL, Regular Rate and Rhythm, S1, S2 Respiratory: Yes: WNL, Regular, CTA Bilaterally Gastrointestinal: Yes: WNL, Normal Bowel Sounds, Soft ...Rectal Exam: Yes: Deferred Renal/: Yes: WNL Breast(s): Yes: Other (b/l Mastectomy) Musculoskeletal: Yes: Other (R- Shoulder pain) Extremities: Yes: Other (right shoulder LROM) Edema: No Peripheral Pulses WNL: Yes Neurological: Yes: WNL, Alert, Oriented, Cran Nerves II-XII Intact ...Motor Strength: WNL Psychiatric: Yes: WNL, Alert, Oriented Labs: CBC, BMP 05/23/19 18:34 05/23/19 18:34 Laboratory Results - last 24 hr 05/23/19 05/23/19 05/23/19 18:34 18:34 18:34 WBC 8.0 RBC 4.39 Hgb 11.6 Hct 37.2 D MCV 84.7 MCH 26.5 MCHC 31.3 L RDW 16.8 H Plt Count 253 D MPV 8.9 Absolute Neuts (auto) 4.1 Neutrophils % 51.0 Lymphocytes % 36.3 Monocytes % 8.7 Eosinophils % 2.9 Basophils % 1.1 Nucleated RBC % 0 PT with INR 14.10 H INR 1.19 H PTT (Actin FS) 24.7 L Sodium 140 Potassium 4.6 Chloride 107 Carbon Dioxide 25 Anion Gap 7 L BUN 21.1 H Creatinine 1.1 Est GFR (CKD-EPI)AfAm 58.50 Est GFR (CKD-EPI)NonAf 50.47 Random Glucose 86 Calcium 9.8 Total Bilirubin 0.5 AST 22 ALT 17 Alkaline Phosphatase 46 Troponin I Total Protein 6.8 Albumin 3.8 TSH 0.86 05/23/19 05/24/19 18:34 00:45 WBC RBC Hgb Hct MCV MCH MCHC RDW Plt Count MPV Absolute Neuts (auto) Neutrophils % Lymphocytes % Monocytes % Eosinophils % Basophils % Nucleated RBC % PT with INR INR PTT (Actin FS) Sodium Potassium Chloride Carbon Dioxide Anion Gap BUN Creatinine Est GFR (CKD-EPI)AfAm Est GFR (CKD-EPI)NonAf Random Glucose Calcium Total Bilirubin AST ALT Alkaline Phosphatase Troponin I < 0.02 < 0.02 Total Protein Albumin TSH Current Medications Generic Name Dose Route Start Last Admin Trade Name Freq PRN Reason Stop Dose Admin Acetaminophen 650 mg 05/24/19 01:40 05/24/19 02:19 Tylenol - PO 650 mg Q6H PRN Administration PAIN LEVEL 7 - 10 Apixaban 5 mg 05/23/19 22:15 05/23/19 22:57 Eliquis - PO 5 mg BID SAMANTHA Administration Atorvastatin Calcium 10 mg 05/24/19 22:00 Lipitor - PO HS SAMANTHA Baclofen 10 mg 05/24/19 10:00 Lioresal - PO BID SAMANTHA Calcium Carbonate/Cholecalciferol 1 tab 05/24/19 10:00 Os-Jose 500+D - PO DAILY SAMANTHA Duloxetine HCl 20 mg 05/24/19 10:00 Cymbalta - PO DAILY SAMANTHA Enalapril Maleate 5 mg 05/24/19 10:00 Vasotec - PO BID SAMANTHA Gabapentin 300 mg 05/24/19 22:00 Neurontin - PO HS SAMANTHA Tamoxifen Citrate 20 mg 05/24/19 10:00 Tamoxifen Citrate PO DAILY [facility] Imaging - Results Chest X-ray: Image Reviewed X-ray: Image Reviewed Cat Scan: Report Reviewed, Image Reviewed EKG: Image Reviewed Problem List - Problems (1) Near syncope Assessment/Plan: Likely secondary to Medication vs Vasovagal vs Arrhythmia Cardiac monitoring Serial enzymes neg x1, trend EKG- SR with SA, PVCs Appreciate Cardiology consult Last Echo 12/2018- lvsf-nl, lvef-nl, la mod dilated, ra mod dilated, mod tr, mild as, mild aortic valve thickening, mod mr Will decrease Carvedilol to 12.5mg BID- appreciate Cardiology input Monitor CBC, BMP Orthostatics Fall Precautions Code(s): R55 - SYNCOPE AND COLLAPSE (2) Dizziness Assessment/Plan: See above Code(s): R42 - DIZZINESS AND GIDDINESS (3) Fall Assessment/Plan: Likely secondary to vasovagal vs medication Head CT report- no acute intracranial hemorrhage or acute vascular territory infarction. no skull fx. extensive chronic white matter infarcts and lacunar infarcts consistent with chronic ischemic change C- spine CT report- no acute cervical vertebral fx or subluxation. Degenerative disc disease. no acute disc herniation. Thyroid goiter with substernal extension of left thyroid lobe into the superior mediastinum Shoulder Xray- image reviewed no obvious fx, awaiting official read Hip/Pelvis Xray image reviewed, awaiting official read Chest Xray image reviewed- no infiltrate or effusion noted Consider Ortho consult if condition worsens Tylenol prn Icepack prn Fall Precautions Monitor vitals Code(s): W19.XXXA - UNSPECIFIED FALL, INITIAL ENCOUNTER (4) Shoulder pain Assessment/Plan: see above Code(s): M25.519 - PAIN IN UNSPECIFIED SHOULDER (5) Hypertension Assessment/Plan: stable Monitor BP Continue enalapril, will adjust carvedilol due to near syncopal events Appreciate Cardiology input Monitor renal function Code(s): I10 - ESSENTIAL (PRIMARY) HYPERTENSION Qualifiers: Hypertension type: essential hypertension Qualified Code(s): I10 - Essential (primary) hypertension (6) Hyperlipidemia Assessment/Plan: stable Continue home med Monitor LFTs Code(s): E78.5 - HYPERLIPIDEMIA, UNSPECIFIED Qualifiers: Hyperlipidemia type: pure hypercholesterolemia Qualified Code(s): E78.00 - Pure hypercholesterolemia, unspecified; E78.0 - Pure hypercholesterolemia (7) Systolic dysfunction without heart failure Assessment/Plan: stable Continue home meds Code(s): I51.9 - HEART DISEASE, UNSPECIFIED (8) Thyroid goiter Assessment/Plan: Cervical CT reviewed Thyroid US done 04/2019 report reviewed Will continue to monitor and treat with interventions accordingly Recommend f/u with PMD outpatient Code(s): E04.9 - NONTOXIC GOITER, UNSPECIFIED (9) Carotid stenosis, right Code(s): I65.21 - OCCLUSION AND STENOSIS OF RIGHT CAROTID ARTERY (10) History of DVT (deep vein thrombosis) Assessment/Plan: Continue Eliquis Code(s): Z86.718 - PERSONAL HISTORY OF OTHER VENOUS THROMBOSIS AND EMBOLISM (11) History of pulmonary embolus (PE) Assessment/Plan: Continue Eliquis Code(s): Z86.711 - PERSONAL HISTORY OF PULMONARY EMBOLISM (12) S/P coronary artery stent placement Code(s): Z95.5 - PRESENCE OF CORONARY ANGIOPLASTY IMPLANT AND GRAFT Assessment/Plan This is a 69 y/o woman with significant medical history of HTN, HLD, CAD s/p PCI /DEAN, Angina, Diastolic Dysfunction, Carotid Stenosis s/p CEA, CVA (L- residual weakness), Vasovagal Syncope, DVT, PE s/p IVC Filter (on Eliquis), Breast Ca s/ p Lumpectomy, Schatzki Ring, Hiatal Hernia (EGD 2018), Anemia. Placed in Telemetry Observation for Near Syncope, s/p Fall, R- Shoulder Pain for further evaluation of their emergent condition. Plan: See Problem List FEN Fluid restriction 1L Replete lytes prn Low Na Diet DVT ppx OOB SCDs Continue Eliquis Dispo: Observation Visit type - Emergency Visit Emergency Visit: Yes ED Registration Date: 05/23/19 Care time: The patient presented to the Emergency Department on the above date and was hospitalized for further evaluation of their emergent condition. - New Patient This patient is new to me today: Yes Date on this admission: 05/23/19 - Critical Care Critical Care patient: No
[2019-05-23] MEDS ORDERED: APIXABAN 5 MG TABLET PO ONE (22:52)
[2019-05-23] MEDS: APIXABAN 5 MG TABLET PO SCH (22:57)
[2019-05-24] MEDS: ACETAMINOPHEN 325 MG TABLET (FP) PO PRN ×3 (02:19→17:39)
[2019-05-24 03:12] VITALS: BMI 26.7
[2019-05-24 06:19] LABS: EOS % 3.9 % (0-4.5); HEMATOCRIT 33.8 % (32.4-45.2); HEMOGLOBIN 10.7 GM/dL (10.7-15.3); LYMPH % 43.3 % (8-40); MCH 26.6 pg (25.7-33.7); MCHC 31.7 g/dl (32.0-36.0); MEAN PLT VOLUME 9.1 fl (7.5-11.1); MONO % 9.1 % (3.8-10.2); NEUT % 42.7 % (42.8-82.8); PLATELET COUNT 234 K/MM3 (134-434); RBC 4.03 M/mm3 (3.60-5.2); RDW 16.4 % (11.6-15.6); WHITE BLOOD COUNT 5.6 K/mm3 (4.0-10.0)
[2019-05-24 06:42] LABS: ANION GAP 6 MMOL/L (8-16); BLOOD UREA NITROGEN 19.5 mg/dL (7-18); CALCIUM 9.3 mg/dL (8.5-10.1); CHLORIDE 106 mmol/L (98-107); CO2 28 mmol/L (21-32); CREATININE 1.1 mg/dL (0.55-1.3); GLUCOSE,RANDOM 84 mg/dL (74-106); POTASSIUM 4.1 mmol/L (3.5-5.1); SODIUM 139 mmol/L (136-145)
--- NOTE | 2019-05-24 09:05 | CON.CARD ---
Consult Consult Specialty:: Cardiology for dr. Moeller - History of Present Illness History of Present Illness: This is a 69 y/o woman with significant medical history of HTN, HLD, CAD s/p PCI /DEAN, Angina, Diastolic Dysfunction, Carotid Stenosis s/p CEA, CVA (L- residual weakness), Vasovagal Syncope, DVT, PE s/p IVC Filter (on Eliquis), Breast Ca s/ p Lumpectomy, b/l Mastectomy, BRCA +, Schatzki Ring, Hiatal Hernia (EGD 2018), Anemia. Who presents to the ED with dizziness s/p fall R- shoulder pain x today. Patient reports falling in her bathroom, hitting her head and right shoulder. Patient denies LOC. She reports having "dizzy spells" regularly. Patient denies numbness or tingling. 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) Cardio/Vascular: Yes: CAD (with cardiac stenting x 2), Deep Vein Thrombosis, HTN , Hyperlipdemia Pulmonary: Yes: Pulmonary Embolus Gastrointestinal: Yes: Diverticulosis, Hiatal Hernia - Past Surgical History Past Surgical History: Yes: Hysterectomy (ELIZABETH/BSO), Mastectomy (and lumpectomy) , Stent - Alcohol/Substance Use Hx Alcohol Use: No History of Substance Use: reports: None - Smoking History Smoking history: Former smoker Have you smoked in the past 12 months: No Aproximately how many cigarettes per day: 0 If you are a former smoker, when did you quit?: 6 YEARS AGO - Social History 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 History of Recent Travel: No Home Medications - Allergies Allergies/Adverse Reactions: Allergies Allergy/AdvReac Type Severity Reaction Status Date / Time No Known Drug Allergies Allergy Verified 03/08/19 09:29 - Home Medications Home Medications: Ambulatory Orders Apixaban [Eliquis] 5 mg PO BID 08/25/17 Enalapril Maleate [Vasotec -] 5 mg PO BID tablet 08/28/17 Baclofen [Lioresal -] 10 mg PO BID 12/03/18 Calcium 500Mg/Vit-D 200 Units [Os-Jose 500+D -] 1 tab PO DAILY 12/03/18 Duloxetine HCl [Cymbalta -] 20 mg PO HS 12/03/18 Gabapentin [Neurontin] 300 mg PO HS 12/03/18 Oxybutynin Chloride [Oxybutynin Chloride ER] 10 mg PO DAILY 12/03/18 Carvedilol 25 mg PO BID 05/23/19 Simvastatin 20 mg PO HS 05/23/19 Tamoxifen Citrate 20 mg PO DAILY 05/23/19 Family Disease History - Family Disease History Family Disease History: [place]: Sister (6, alive: 1 with BCA), Other: Father ( 88: CHF), Mother (: 70's: CHF), Brother (6: : "heart problems"), Sister Review of Systems - Review of Systems Constitutional: reports: No Symptoms Eyes: reports: No Symptoms HENT: reports: No Symptoms Neck: reports: No Symptoms Cardiovascular: reports: No Symptoms Respiratory: reports: No Symptoms Gastrointestinal: reports: No Symptoms Genitourinary: reports: No Symptoms Breasts: reports: No Symptoms Reported Musculoskeletal: reports: No Symptoms Integumentary: reports: No Symptoms Neurological: reports: Syncope (near-syncope, dizziness) Endocrine: reports: No Symptoms Hematology/Lymphatic: reports: No Symptoms Psychiatric: reports: No Symptoms Vital Signs: Vital Signs Temperature 98.3 F 05/24/19 08:20 Pulse Rate 64 05/24/19 08:20 Respiratory Rate 18 05/24/19 08:20 Blood Pressure 130/73 05/24/19 08:20 O2 Sat by Pulse Oximetry (%) 97 05/24/19 06:09 Constitutional: Yes: Well Nourished, No Distress, Calm Eyes: Yes: WNL, Conjunctiva Clear, EOM Intact HENT: Yes: WNL, Atraumatic, Normocephalic Neck: Yes: WNL, Supple, Trachea Midline Respiratory: Yes: WNL, Regular, CTA Bilaterally Gastrointestinal: Yes: WNL, Normal Bowel Sounds Renal/: Yes: WNL Cardiovascular: Yes: WNL, Regular Rate and Rhythm Musculoskeletal: Yes: WNL Extremities: Yes: WNL Integumentary: Yes: WNL Neurological: Yes: WNL, Alert, Oriented ...Motor Strength: WNL Psychiatric: Yes: WNL, Alert, Oriented - Other Data Labs, Other Data: CBC, BMP 05/24/19 05:10 05/24/19 05:10 INR, PTT INR 1.19 (0.83-1.09) H 05/23/19 18:34 Troponin, BNP 05/23/19 05/24/19 05/24/19 18:34 00:45 05:10 Troponin I < 0.02 < 0.02 < 0.02 Troponin, BNP 05/23/19 05/24/19 05/24/19 18:34 00:45 05:10 Troponin I < 0.02 < 0.02 < 0.02 Imaging - Results Chest X-ray: Image Reviewed (no i/e) EKG: Image Reviewed (sr couplets vpcs) Problem List - Problems (1) Fall Code(s): W19.XXXA - UNSPECIFIED FALL, INITIAL ENCOUNTER (2) Near syncope Code(s): R55 - SYNCOPE AND COLLAPSE (3) Thyroid goiter Code(s): E04.9 - NONTOXIC GOITER, UNSPECIFIED (4) Abdominal pain Code(s): R10.9 - UNSPECIFIED ABDOMINAL PAIN Qualifiers: Abdominal location: epigastric Qualified Code(s): R10.13 - Epigastric pain (5) Acute ethmoidal sinusitis Code(s): J01.20 - ACUTE ETHMOIDAL SINUSITIS, UNSPECIFIED Qualifiers: Recurrence: not specified Qualified Code(s): J01.20 - Acute ethmoidal sinusitis, unspecified (6) Acute upper gastrointestinal bleeding Code(s): K92.2 - GASTROINTESTINAL HEMORRHAGE, UNSPECIFIED (7) [id number] kidney injury Code(s): N17.9 - ACUTE KIDNEY FAILURE, UNSPECIFIED; N18.9 - CHRONIC KIDNEY DISEASE, UNSPECIFIED Qualifiers: Acute renal failure type: unspecified Chronic kidney disease stage: unspecified stage Qualified Code(s): N17.9 - Acute kidney failure, unspecified ; N18.9 - Chronic kidney disease, unspecified; N18.9 - Chronic kidney disease, unspecified (8) Alopecia areata Code(s): L63.9 - ALOPECIA AREATA, UNSPECIFIED (9) Altered mental status Code(s): R41.82 - ALTERED MENTAL STATUS, UNSPECIFIED Qualifiers: Altered mental status type: disorientation Qualified Code(s): R41.0 - Disorientation, unspecified (10) Anemia Code(s): D64.9 - ANEMIA, UNSPECIFIED Qualifiers: Anemia type: iron deficiency Iron deficiency anemia type: chronic blood loss Qualified Code(s): D50.0 - Iron deficiency anemia secondary to blood loss (chronic) (11) Anticoagulated Code(s): 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 OF ANTICOAGULANTS (12) Back pain Code(s): M54.9 - DORSALGIA, UNSPECIFIED (13) Breast cancer Code(s): C50.919 - MALIGNANT NEOPLASM OF UNSP SITE OF UNSPECIFIED FEMALE BREAST Qualifiers: Breast location: unspecified site of breast (14) Carotid stenosis, right Code(s): I65.21 - OCCLUSION AND STENOSIS OF RIGHT CAROTID ARTERY (15) Cerebral arteriosclerosis with history of previous stroke Code(s): I67.2 - CEREBRAL ATHEROSCLEROSIS; Z86.73 - PRSNL HX OF TIA (TIA), AND CEREB INFRC W/O RESID DEFICITS (16) Chest pressure Code(s): R07.89 - OTHER CHEST PAIN (17) Chronic anticoagulation Code(s): 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 transplanted heart: [place] heart Associated angina: without angina Qualified Code(s): I25.10 - Atherosclerotic heart disease of [place] coronary artery without angina pectoris (22) Cranial nerve dysfunction Code(s): G52.9 - CRANIAL NERVE DISORDER, UNSPECIFIED (23) DVT prophylaxis Code(s): [id number] - (24) Deep vein thrombosis (DVT) of left lower extremity Code(s): I82.402 - ACUTE EMBOLISM AND THOMBOS UNSP DEEP VEINS OF L LOW EXTREM Qualifiers: Affected thrombotic vein of extremity: unspecified vein of extremity Chronicity: acute Qualified Code(s): I82.402 - Acute embolism and thrombosis of unspecified deep veins of left lower extremity (25) Dizziness Code(s): R42 - DIZZINESS AND GIDDINESS (26) Elevated INR Code(s): R79.1 - ABNORMAL COAGULATION PROFILE (27) Head injury, acute, without loss of consciousness Code(s): S09.90XA - UNSPECIFIED INJURY OF HEAD, INITIAL ENCOUNTER (28) History of DVT (deep vein thrombosis) Code(s): Z86.718 - PERSONAL HISTORY OF OTHER VENOUS THROMBOSIS AND EMBOLISM (29) History of coronary artery disease Code(s): Z86.79 - PERSONAL HISTORY OF OTHER DISEASES OF THE CIRCULATORY SYSTEM (30) History of pulmonary embolism Code(s): Z86.711 - PERSONAL HISTORY OF PULMONARY EMBOLISM (31) History of pulmonary embolus (PE) Code(s): Z86.711 - PERSONAL HISTORY OF PULMONARY EMBOLISM (32) Hyperlipidemia Code(s): E78.5 - HYPERLIPIDEMIA, UNSPECIFIED Qualifiers: Hyperlipidemia type: pure hypercholesterolemia Qualified Code(s): E78.00 - Pure hypercholesterolemia, unspecified; E78.0 - Pure hypercholesterolemia (33) Hypertension Code(s): I10 - ESSENTIAL (PRIMARY) HYPERTENSION Qualifiers: Hypertension type: essential hypertension Qualified Code(s): I10 - Essential (primary) hypertension (34) Hypotension Code(s): I95.9 - HYPOTENSION, UNSPECIFIED Qualifiers: Hypotension type: other hypotension type Qualified Code(s): I95.89 - Other hypotension (35) Left leg swelling Code(s): M79.89 - OTHER SPECIFIED SOFT TISSUE DISORDERS (36) Low back pain Code(s): M54.5 - LOW BACK PAIN (37) Premature ventricular contraction Code(s): I49.3 - VENTRICULAR PREMATURE DEPOLARIZATION (38) Rectal pain Code(s): K62.89 - OTHER SPECIFIED DISEASES OF ANUS AND RECTUM (39) S/P coronary artery stent placement Code(s): Z95.5 - PRESENCE OF CORONARY ANGIOPLASTY IMPLANT AND GRAFT (40) Sepsis Code(s): A41.9 - SEPSIS, UNSPECIFIED ORGANISM (41) Shoulder pain Code(s): M25.519 - PAIN IN UNSPECIFIED SHOULDER (42) Subclavian artery stenosis, left Code(s): I77.1 - STRICTURE OF ARTERY (43) Subclavian steal syndrome Code(s): G45.8 - OTH TRANSIENT CEREBRAL ISCHEMIC ATTACKS AND RELATED SYND (44) Syncope Code(s): R55 - SYNCOPE AND COLLAPSE Qualifiers: Syncope type: unspecified Qualified Code(s): R55 - Syncope and collapse (45) Systolic dysfunction without heart failure Code(s): I51.9 - HEART DISEASE, UNSPECIFIED (46) TIA (transient ischemic attack) Code(s): G45.9 - TRANSIENT CEREBRAL ISCHEMIC ATTACK, UNSPECIFIED (47) Thigh pain Code(s): M79.659 - PAIN IN UNSPECIFIED THIGH (48) Toxic metabolic encephalopathy Code(s): G92 - TOXIC ENCEPHALOPATHY (49) UTI (urinary tract infection) Code(s): N39.0 - URINARY TRACT INFECTION, SITE NOT SPECIFIED Qualifiers: Hematuria presence: without hematuria (50) Vomiting Code(s): R11.10 - VOMITING, UNSPECIFIED (51) Weakness Code(s): R53.1 - WEAKNESS Assessment/Plan 69 y/o woman with significant medical history of HTN, HLD, CAD s/p PCI/DEAN, Angina, Diastolic Dysfunction, Carotid Stenosis s/p CEA, CVA (L- residual weakness), Vasovagal Syncope, DVT, PE s/p IVC Filter (on Eliquis), Breast Ca s/ p Lumpectomy, b/l Mastectomy, BRCA +, Schatzki Ring, Hiatal Hernia (EGD 2018), Anemia. Who presents to the ED with dizziness s/p fall R- shoulder pain x today. Patient reports falling in her bathroom, hitting her head and right shoulder. Patient denies LOC. Plan r/o mi telemetry cont neuro evaluation coverage for dr. Moeller
--- NOTE | 2019-05-24 09:08 | EKG ---
Test Reason : Blood Pressure : / mmHG Vent. Rate : 077 BPM Atrial Rate : 070 BPM P-R Int : 144 ms QRS Dur : 090 ms QT Int : 374 ms P-R-T Axes : 065 014 032 degrees QTc Int : 423 ms SINUS RHYTHM WITH SINUS ARRHYTHMIA WITH FREQUENT and consecutive PREMATURE VENTRICULAR COMPLEXES ABNORMAL ECG WHEN COMPARED WITH ECG OF 12-JAN-2019 10:18, QT HAS SHORTENED Confirmed by SHWETA JACKSON, LIYA ([id number]) on 05/24/2019 9:07:42 AM Referred By: Confirmed By:LIYA ROCK MD
[2019-05-24 09:42] LABS: PH,URINE 6.5 (5.0-8.0); URINE APPEARANCE CLEAR; URINE BILIRUBIN NEGATIVE (NEGATIVE); URINE COLOR YELLOW; URINE GLUCOSE (UA) NEGATIVE (NEGATIVE); URINE KETONE NEGATIVE (NEGATIVE); URINE LEUK ESTERASE NEGATIVE (NEGATIVE); URINE NITRITE NEGATIVE (NEGATIVE); URINE PROTEIN NEGATIVE (NEGATIVE); URINE UROBILINOGEN 0.2 mg/dL (0.2-1.0)
[2019-05-24] MEDS ORDERED: PT OWN MED DRAWER 7, Y5N ONE ×3 (10:35→22:05)
[2019-05-24] MEDS: BACLOFEN 10 MG TABLET (FP) PO SCH ×2 (10:51→22:51)
[2019-05-24] MEDS: ENALAPRIL MALEATE 5 MG TABLET (FP) PO SCH ×2 (10:51→22:52)
[2019-05-24] MEDS: CALCIUM 500MG/VIT-D 200 UNITS COMBO TABLET (FP) PO SCH (10:51)
[2019-05-24] MEDS: DULoxetine HCL 20 MG CAPSULE.DR PO SCH (10:51)
[2019-05-24] MEDS: APIXABAN 5 MG TABLET PO SCH ×2 (10:51→22:51)
[2019-05-24] MEDS: CARVEDILOL 12.5 MG TABLET (FP) PO SCH ×2 (10:51→22:52)
--- NOTE | 2019-05-24 11:17 | PN ---
Progress Note (short form) - Note Progress Note: pt seen/ examined chart reviewed feels better no complains denies cp/sob/abd pain Vital Signs Temp 98.3 F 05/24/19 08:20 Pulse 64 05/24/19 08:20 Resp 18 05/24/19 08:20 BP 130/73 05/24/19 08:20 Pulse Ox 98 05/24/19 09:42 Intake & Output 05/23/19 05/23/19 05/24/19 11:59 23:59 11:59 Intake Total 250 Balance 250 Weight 174 lb 165 lb 12.8 oz Intake: IV 10 RAC 22 05/23/2019 10 Oral 240 Other: Voiding Method Bedpan Toilet # Unmeasured Voids Void 1 Bowel Movement No Height 5 ft 6 in 5 ft 6 in Body Mass Index (BMI) 28.0 26.7 Weight Measurement Method Est/Stated by Patient Active Medications Acetaminophen (Tylenol -) 650 mg PO Q6H PRN PRN Reason: PAIN LEVEL 7 - 10 Last Admin: 05/24/19 08:15 Dose: 650 mg Apixaban (Eliquis -) 5 mg PO BID [facility] Last Admin: 05/24/19 10:51 Dose: 5 mg Atorvastatin Calcium (Lipitor -) 10 mg PO HS [facility] Baclofen (Lioresal -) 10 mg PO BID [facility] Last Admin: 05/24/19 10:51 Dose: 10 mg Calcium Carbonate/Cholecalciferol (Os-Jose 500+D -) 1 tab PO DAILY [facility] Last Admin: 05/24/19 10:51 Dose: 1 tab Carvedilol (Coreg -) 12.5 mg PO BID [facility] Last Admin: 05/24/19 10:51 Dose: 12.5 mg Duloxetine HCl (Cymbalta -) 20 mg PO DAILY [facility] Last Admin: 05/24/19 10:51 Dose: 20 mg Enalapril Maleate (Vasotec -) 5 mg PO BID [facility] Last Admin: 05/24/19 10:51 Dose: 5 mg Gabapentin (Neurontin -) 300 mg PO HS [facility] Tamoxifen Citrate (Tamoxifen Citrate) 20 mg PO DAILY [facility] CBC, BMP 05/24/19 05:10 05/24/19 05:10 ct head - ve x 2 Physical Examination Constitutional: Yes: Well Nourished, No Distress, Calm and comfortable. Eyes: Yes: WNL, Conjunctiva Clear, EOM Intact, PERRLA HENT: Yes: WNL, Atraumatic, Normocephalic Neck: Yes: Supple, Trachea Midline, Thyromegaly- Mild Cardiovascular: Yes: WNL, Regular Rate and Rhythm, S1, S2 Respiratory: Yes: WNL, Regular, CTA Bilaterally Gastrointestinal: Yes: WNL, Normal Bowel Sounds, Soft ...Rectal Exam: Yes: Deferred Renal/: Yes: WNL Breast(s): Yes: Other (b/l Mastectomy) Musculoskeletal: Yes: Other (R- Shoulder pain)- Mild Extremities: Yes: Other (right shoulder LROM) Edema: No Peripheral Pulses WNL: Yes Neurological: Yes: WNL, Alert, Oriented, Cranial Nerves II-XII Intact ...Motor Strength: WNL Psychiatric: Yes: WNL, Alert, Oriented. Calm. A/P S/p Fall Other problems as listed meds reviewed oob- chair Physical therapy monitor today fall precautions will follow
[2019-05-24] MEDS: TAMOXIFEN CITRATE 10 MG TABLET PO SCH (13:23)
[2019-05-24] MEDS: PANTOPRAZOLE 40 MG TABLET (FP) PO SCH (13:24)
[2019-05-24] MEDS: ATORVASTATIN CA 10 MG TABLET (FP) PO SCH (22:51)
[2019-05-24] MEDS: GABAPENTIN 300 MG CAPSULE (FP) PO SCH (22:51)
[2019-05-25] MEDS: ACETAMINOPHEN 325 MG TABLET (FP) PO PRN ×3 (06:31→21:15)
--- NOTE | 2019-05-25 07:09 | PN ---
Progress Note (short form) - Note Progress Note: Chief Complaint: Events noted, notes reviewed, patient is complaining of persistent upper and lower back discomfort, persistent right shoulder discomfort - both have been reported post fall, denies any chest discomfort or dyspnea, has been reporting intermittent dizziness History of Present Illness: Seen and examined on telemetry. Events noted, notes reviewed, patient is complaining of persistent upper and lower back discomfort, persistent right shoulder discomfort- both have been reported post fall, denies any chest discomfort or dyspnea, has been reporting intermittent dizziness Medications: Current Medications Acetaminophen (Tylenol -) 650 mg PO Q6H PRN PRN Reason: PAIN LEVEL 7 - 10 Last Admin: 05/25/19 06:31 Dose: 650 mg Apixaban (Eliquis -) 5 mg PO BID [facility] Last Admin: 05/25/19 10:03 Dose: 5 mg Atorvastatin Calcium (Lipitor -) 10 mg PO [facility] Last Admin: 05/24/19 22:51 Dose: 10 mg Baclofen (Lioresal -) 10 mg PO BID [facility] Last Admin: 05/25/19 10:03 Dose: 10 mg Calcium Carbonate/Cholecalciferol (Os-Jose 500+D -) 1 tab PO DAILY [facility] Last Admin: 05/25/19 10:05 Dose: 1 tab Carvedilol (Coreg -) 12.5 mg PO BID [facility] Last Admin: 05/25/19 10:03 Dose: 12.5 mg Duloxetine HCl (Cymbalta -) 20 mg PO DAILY [facility] Last Admin: 05/25/19 10:03 Dose: 20 mg Enalapril Maleate (Vasotec -) 5 mg PO BID [facility] Last Admin: 05/25/19 10:03 Dose: 5 mg Gabapentin (Neurontin -) 300 mg PO [facility] Last Admin: 05/24/19 22:51 Dose: 300 mg Lidocaine (Lidoderm Patch -) 1 patch TP DAILY [facility] Miscellaneous (Lidoderm Patch Removal) 1 each MC DAILY@2200 [facility] Pantoprazole Sodium (Protonix -) 40 mg PO DAILY [facility] Last Admin: 05/25/19 10:03 Dose: 40 mg Tamoxifen Citrate (Tamoxifen Citrate) 20 mg PO DAILY [facility] Last Admin: 05/25/19 10:01 Dose: 20 mg Review of Systems - Review of Systems Constitutional: denies: Chills, Fever Cardiovascular: As noted above Respiratory: denies: Cough or Sputum Production Gastrointestinal: denies: Nausea, Vomiting, Diarrhea, Constipation, Abdominal Pain Neurological: denies: Headaches Vital Signs: Last Vital Signs Temp Pulse Resp BP Pulse Ox 98.2 F 82 18 119/83 98 05/25/19 08:46 05/25/19 08:46 05/25/19 08:46 05/25/19 08:46 05/25/19 01:00 Intake & Output 05/22/19 05/23/19 05/24/19 05/25/19 23:59 23:59 23:59 23:59 Intake Total 490 460 Balance 490 460 Weight 174 lb 165 lb 12.8 oz Neck: Supple Negative JVD No Bruit Respiratory: Clear to A&P bilaterally Cardiovascular: S1 S2 Regular Rate and Rhythm Gastrointestinal: Soft Benign Normal Bowel Sounds Ext: Negative Edema Labs: CBC, BMP 05/24/19 05:10 05/24/19 05:10 Hepatic Panel Total Bilirubin 0.5 mg/dL (0.2-1) 05/23/19 18:34 AST 22 U/L (15-37) 05/23/19 18:34 ALT 17 U/L (13-61) 05/23/19 18:34 Alkaline Phosphatase 46 U/L (45-117) 05/23/19 18:34 Albumin 3.8 g/dl (3.4-5.0) 05/23/19 18:34 INR, PTT INR 1.19 (0.83-1.09) H 05/23/19 18:34 Assessment/Plan ASSESSMENT: 1. Fall without clear loss of consciousness (prior history of syncope), preceding dizziness etiology of which is unclear, postural hypotension to be considered in the differential diagnosis 2. CAD post PCI/DEAN, angina pectoris- clinically stable 3. Diastolic left ventricular dysfunction with clinical class 0 [place] [employer] classification left ventricular failure 4. HTN 5. Hypercholesterolemia 6. 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 History of DVT and PTE on A/C with DOAC's/Eliquis 8. History of breast CA post lumpectomy 9. Anemia PLAN: 1. Continue Coreg therapy, hemodynamics permitting 2. Continue Vasotec therapy, hemodynamics permitting 3. Continue Lipitor 4. Continue anticoagulation therapy with DOAC's/Eliquis 5. Initiate physical therapy Carol Woodson M.D.
[2019-05-25] MEDS ORDERED: PT OWN MED DRAWER 7, Y5N ONE ×2 (09:47→20:53)
[2019-05-25] MEDS: TAMOXIFEN CITRATE 10 MG TABLET PO SCH (10:01)
[2019-05-25] MEDS: BACLOFEN 10 MG TABLET (FP) PO SCH ×2 (10:03→21:14)
[2019-05-25] MEDS: PANTOPRAZOLE 40 MG TABLET (FP) PO SCH (10:03)
[2019-05-25] MEDS: DULoxetine HCL 20 MG CAPSULE.DR PO SCH (10:03)
[2019-05-25] MEDS: APIXABAN 5 MG TABLET PO SCH ×2 (10:03→21:15)
[2019-05-25] MEDS: ENALAPRIL MALEATE 5 MG TABLET (FP) PO SCH ×2 (10:03→21:14)
[2019-05-25] MEDS: CARVEDILOL 12.5 MG TABLET (FP) PO SCH ×2 (10:03→21:15)
[2019-05-25] MEDS: CALCIUM 500MG/VIT-D 200 UNITS COMBO TABLET (FP) PO SCH (10:05)
--- NOTE | 2019-05-25 11:39 | PN ---
Progress Note (short form) - Note Progress Note: s/p dizzy spell and fall she feel sore no distress ambulated with PT today no dizziness Vital Signs - 24 hr 05/24/19 05/24/19 05/24/19 14:25 17:00 18:00 Temperature 98.9 F 97.8 F Pulse Rate 73 82 Respiratory 20 20 Rate Blood Pressure 144/74 121/55 L O2 Sat by Pulse 98 Oximetry (%) 05/24/19 05/25/19 05/25/19 22:00 01:00 02:00 Temperature 98.1 F 97.8 F Pulse Rate 66 65 Respiratory 16 16 18 Rate Blood Pressure 130/81 116/55 L O2 Sat by Pulse 98 Oximetry (%) 05/25/19 05/25/19 06:00 08:46 Temperature 97.8 F 98.2 F Pulse Rate 71 82 Respiratory 16 18 Rate Blood Pressure 118/86 119/83 O2 Sat by Pulse Oximetry (%) Current Medications Generic Name Dose Route Start Last Admin Trade Name Freq PRN Reason Stop Dose Admin Acetaminophen 650 mg 05/24/19 01:40 05/25/19 06:31 Tylenol - PO 650 mg Q6H PRN Administration PAIN LEVEL 7 - 10 Apixaban 5 mg 05/23/19 22:15 05/25/19 10:03 Eliquis - PO 5 mg BID SAMANTHA Administration Atorvastatin Calcium 10 mg 05/24/19 22:00 05/24/19 22:51 Lipitor - PO 10 mg HS SAMANTHA Administration Baclofen 10 mg 05/24/19 10:00 05/25/19 10:03 Lioresal - PO 10 mg BID SAMANTHA Administration Calcium Carbonate/Cholecalciferol 1 tab 05/24/19 10:00 05/25/19 10:05 Os-Jose 500+D - PO 1 tab DAILY SAMANTHA Administration Carvedilol 12.5 mg 05/24/19 10:00 05/25/19 10:03 Coreg - PO 12.5 mg BID SAMANTHA Administration Duloxetine HCl 20 mg 05/24/19 10:00 05/25/19 10:03 Cymbalta - PO 20 mg DAILY SAMANTHA Administration Enalapril Maleate 5 mg 05/24/19 10:00 05/25/19 10:03 Vasotec - PO 5 mg BID SAMANTHA Administration Gabapentin 300 mg 05/24/19 22:00 05/24/19 22:51 Neurontin - PO 300 mg HS SAMANTHA Administration Pantoprazole Sodium 40 mg 05/24/19 13:00 05/25/19 10:03 Protonix - PO 40 mg DAILY [facility]ANTHA Administration Tamoxifen Citrate 20 mg 05/24/19 10:00 05/25/19 10:01 Tamoxifen Citrate PO 20 mg DAILY [facility]AN[facility]A Administration S1 s2 Irregular Lungs clear Abd- soft, NT no edema PLAN CT head x 2 negative for bleed May resume Eliquis Coreg decreased BP is acceptable 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 transplanted heart: [place] heart Associated angina: without angina Qualified Code(s): I25.10 - Atherosclerotic heart disease of [place] coronary artery without angina pectoris
[2019-05-25] MEDS: LIDOCAINE 5% TOPICAL PATCH TP SCH (12:12)
--- NOTE | 2019-05-25 12:48 | EKG ---
Test Reason : Blood Pressure : / mmHG Vent. Rate : 080 BPM Atrial Rate : 080 BPM P-R Int : 136 ms QRS Dur : 092 ms QT Int : 398 ms P-R-T Axes : 055 022 043 degrees QTc Int : 459 ms POOR DATA QUALITY, INTERPRETATION MAY BE ADVERSELY AFFECTED SINUS RHYTHM WITH FREQUENT and consecutive PREMATURE VENTRICULAR COMPLEXES ABNORMAL ECG WHEN COMPARED WITH ECG OF 23-MAY-2019 15:52, NO SIGNIFICANT CHANGE WAS FOUND Confirmed by Bony Flores MD ([id number]) on 05/25/2019 12:48:26 PM Referred By: Confirmed By:Bony Flores MD
[2019-05-25] MEDS: GABAPENTIN 300 MG CAPSULE (FP) PO SCH (21:14)
[2019-05-25] MEDS: ATORVASTATIN CA 10 MG TABLET (FP) PO SCH (21:14)
[2019-05-25] MEDS ORDERED: LIDOCAINE PATCH REMOVAL MC SCH (22:00)
[2019-05-26] MEDS: ACETAMINOPHEN 325 MG TABLET (FP) PO PRN ×2 (04:51→10:22)
--- NOTE | 2019-05-26 10:09 | PN ---
Progress Note, Physician History of Present Illness: Denies recurrent near or true syncope, no events on telemetry. - Current Medication List Current Medications: Active Medications Acetaminophen (Tylenol -) 650 mg PO Q6H PRN PRN Reason: PAIN LEVEL 7 - 10 Last Admin: 05/26/19 04:51 Dose: 650 mg Apixaban (Eliquis -) 5 mg PO BID [facility] Last Admin: 05/25/19 21:15 Dose: 5 mg Atorvastatin Calcium (Lipitor -) 10 mg PO HS [facility] Last Admin: 05/25/19 21:14 Dose: 10 mg Baclofen (Lioresal -) 10 mg PO BID [facility] Last Admin: 05/25/19 21:14 Dose: 10 mg Calcium Carbonate/Cholecalciferol (Os-Jose 500+D -) 1 tab PO DAILY [facility] Last Admin: 05/25/19 10:05 Dose: 1 tab Carvedilol (Coreg -) 12.5 mg PO BID [facility] Last Admin: 05/25/19 21:15 Dose: 12.5 mg Duloxetine HCl (Cymbalta -) 20 mg PO DAILY [facility] Last Admin: 05/25/19 10:03 Dose: 20 mg Enalapril Maleate (Vasotec -) 5 mg PO BID [facility] Last Admin: 05/25/19 21:14 Dose: 5 mg Gabapentin (Neurontin -) 300 mg PO HS [facility] Last Admin: 05/25/19 21:14 Dose: 300 mg Lidocaine (Lidoderm Patch -) 1 patch TP DAILY [facility] Last Admin: 05/25/19 12:12 Dose: 1 patch Miscellaneous (Lidoderm Patch Removal) 1 each MC DAILY@2200 [facility] Last Admin: 05/25/19 21:15 Dose: Not Given Pantoprazole Sodium (Protonix -) 40 mg PO DAILY [facility] Last Admin: 05/25/19 10:03 Dose: 40 mg Tamoxifen Citrate (Tamoxifen Citrate) 20 mg PO DAILY [facility] Last Admin: 05/25/19 10:01 Dose: 20 mg - Objective Vital Signs: Vital Signs Temperature 98.9 F 05/26/19 06:00 Pulse Rate 87 05/26/19 06:00 Respiratory Rate 18 05/26/19 06:00 Blood Pressure 167/83 05/26/19 06:00 O2 Sat by Pulse Oximetry (%) 99 05/25/19 20:32 Constitutional: Yes: No Distress, Calm Neck: Yes: Supple Cardiovascular: Yes: Regular Rate and Rhythm, Murmur (2/6 SM) Respiratory: Yes: Regular, CTA Bilaterally Gastrointestinal: Yes: Normal Bowel Sounds, Soft Edema: No Labs: CBC, BMP 05/24/19 05:10 05/24/19 05:10 INR, PTT INR 1.19 (0.83-1.09) H 05/23/19 18:34 - ....Imaging EKG: Report Reviewed (Tele: SR occ PVC) Problem List - Problems (1) Fall Code(s): W19.XXXA - UNSPECIFIED FALL, INITIAL ENCOUNTER Qualifiers: Encounter type: subsequent encounter Qualified Code(s): W19.XXXD - Unspecified fall, subsequent encounter (2) Near syncope Code(s): R55 - SYNCOPE AND COLLAPSE (3) Anticoagulated Code(s): Z79.01 - [employer] (CURRENT) USE OF ANTICOAGULANTS (4) Cerebral arteriosclerosis with history of previous stroke Code(s): I67.2 - CEREBRAL ATHEROSCLEROSIS; Z86.73 - PRSNL HX OF TIA (TIA), AND CEREB INFRC W/O RESID DEFICITS (5) Coronary artery disease Code(s): I25.10 - ATHSCL HEART DISEASE OF [place] CORONARY ARTERY W/O ANG PCTRS Qualifiers: Coronary Disease-Associated Artery/Lesion type: [place] artery [place] vs. transplanted heart: [place] heart Associated angina: without angina Qualified Code(s): I25.10 - Atherosclerotic heart disease of [place] coronary artery without angina pectoris (6) History of DVT (deep vein thrombosis) Code(s): Z86.718 - PERSONAL HISTORY OF OTHER VENOUS THROMBOSIS AND EMBOLISM (7) History of pulmonary embolus (PE) Code(s): Z86.711 - PERSONAL HISTORY OF PULMONARY EMBOLISM (8) Hyperlipidemia Code(s): E78.5 - HYPERLIPIDEMIA, UNSPECIFIED Qualifiers: Hyperlipidemia type: pure hypercholesterolemia Qualified Code(s): E78.00 - Pure hypercholesterolemia, unspecified; E78.0 - Pure hypercholesterolemia (9) Hypertension Code(s): I10 - ESSENTIAL (PRIMARY) HYPERTENSION Qualifiers: Hypertension type: essential hypertension Qualified Code(s): I10 - Essential (primary) hypertension (10) Premature ventricular contraction Code(s): I49.3 - VENTRICULAR PREMATURE DEPOLARIZATION (11) S/P coronary artery stent placement Code(s): Z95.5 - PRESENCE OF CORONARY ANGIOPLASTY IMPLANT AND GRAFT (12) Subclavian artery stenosis, left Code(s): I77.1 - STRICTURE OF ARTERY (13) Systolic dysfunction without heart failure Code(s): I51.9 - HEART DISEASE, UNSPECIFIED Assessment/Plan 01/13/2019 Echo: Normal LV size and fxn, mod HARDY, mod TR RVSP 40-50 mmHg, mod MR , abnl LV compliance 1. Post fall without clear loss of consciousness (prior history of syncope) and postural hypotension 2. CAD s/p PCI/DEAN, angina pectoris 3. Diastolic dysfunction 3. HTN 4. Hypercholesterolemia 5. History of breast CA s/p lumpectomy 6. 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 History of DVT and PTE on A/C with DOAC's/Eliquis 8. Left subclavian steal suspect plan for stent as outpatient 9. Right carotid stenosis plan for angiogram 10. Iron deficiency anemia PLAN: 1. Continue Carvedilol 12.5 bid and Enalapril 5 bid with uptitration as tolerated 2. Eliquis 5 bid with GI protection, declines transfusions Tenriism, continues IV Venofer and Procrit 3. Continue Lipitor 10 qhs 4. PT with gait training
[2019-05-26] MEDS ORDERED: PT OWN MED DRAWER 7, Y5N ONE (10:16)
[2019-05-26] MEDS: BACLOFEN 10 MG TABLET (FP) PO SCH (10:22)
[2019-05-26] MEDS: PANTOPRAZOLE 40 MG TABLET (FP) PO SCH (10:22)
[2019-05-26] MEDS: DULoxetine HCL 20 MG CAPSULE.DR PO SCH (10:24)
[2019-05-26] MEDS: TAMOXIFEN CITRATE 10 MG TABLET PO SCH (10:24)
[2019-05-26] MEDS: APIXABAN 5 MG TABLET PO SCH (10:24)
[2019-05-26] MEDS: ENALAPRIL MALEATE 5 MG TABLET (FP) PO SCH (10:24)
[2019-05-26] MEDS: CALCIUM 500MG/VIT-D 200 UNITS COMBO TABLET (FP) PO SCH (10:25)
[2019-05-26] MEDS: LIDOCAINE 5% TOPICAL PATCH TP SCH (10:25)
[2019-05-26] MEDS: CARVEDILOL 12.5 MG TABLET (FP) PO SCH (11:53)
--- NOTE | 2019-05-26 11:59 | DS ---
Physical Examination Vital Signs: Vital Signs Temperature 98.9 F 05/26/19 06:00 Pulse Rate 87 05/26/19 06:00 Respiratory Rate 18 05/26/19 06:00 Blood Pressure 167/83 05/26/19 06:00 O2 Sat by Pulse Oximetry (%) 99 05/25/19 20:32 Constitutional: Yes: No Distress, Calm Cardiovascular: Yes: Pulse Irregular Respiratory: Yes: CTA Bilaterally Gastrointestinal: Yes: Normal Bowel Sounds, Soft. No: Distention, Tenderness Edema: No Labs: CBC, BMP 05/24/19 05:10 05/24/19 05:10 Discharge Summary Reason For Visit: PRE SYNCOPE,FALL Current Active Problems Fall (Acute) Near syncope (Acute) Thyroid goiter (Acute) Hospital Course: Admitted for fall-- she had dizziness and ell in the bathroom- she did not lose consciousness CT head x 2 --> negative for intacranial bleed BP meds lowered received fluids Evaluated by cardiology Telemetry uneventful pt is ambulating with physical therapy and requires home PT with VNS She only gets 4 hours of Home care and as she frequently falls and is a bleeding risk due to anticoagulation , she requires more hours of [employer]. may be discharged home-- follow up with Dr best and Dr Woodson Condition: Improved - Instructions Referrals: Shreya Best MD [Primary Care Provider] - Carol Woodson MD [Staff Physician] - Disposition: HOME - Home Medications Comprehensive Discharge Medication List: Ambulatory Orders Apixaban [Eliquis] 5 mg PO BID 08/25/17 Enalapril Maleate [Vasotec -] 5 mg PO BID tablet 08/28/17 Baclofen [Lioresal -] 10 mg PO BID 12/03/18 Calcium 500Mg/Vit-D 200 Units [Os-Jose 500+D -] 1 tab PO DAILY 12/03/18 Duloxetine HCl [Cymbalta -] 20 mg PO HS 12/03/18 Gabapentin [Neurontin] 300 mg PO HS 12/03/18 Oxybutynin Chloride [Oxybutynin Chloride ER] 10 mg PO DAILY 12/03/18 Carvedilol 25 mg PO BID 05/23/19 Simvastatin 20 mg PO HS 05/23/19 Tamoxifen Citrate 20 mg PO DAILY 05/23/19
[2019-05-26] MEDS ORDERED: ENALAPRIL MALEATE 2.5 MG TABLET (FP) PO SCH (12:15)
[2019-05-26 14:33] VITALS: TEMP 98.7
[2019-05-26 18:28] VITALS: BP 141/62; PULSE 83
== END 2019-05-26 20:35 | disposition home or self-care (01) | DRG 57 ==
LOC: JER 15:07 → J4S 19:50 → OBSVTOIN 05-25 12:03
PROVIDERS: ADMIT Internal Medicine; ATTEND Internal Medicine
DX: I69.398 Other sequelae of cerebral infarction (principal); I13.10 Hypertensive heart and chronic kidney disease without heart failure, with stage 1 through stage 4 chronic kidney disease, or unspecified chronic kidney disease; N18.9 Chronic kidney disease, unspecified; S09.90XA Unspecified injury of head, initial encounter; W01.0XXA Fall on same level from slipping, tripping and stumbling without subsequent striking against object, initial encounter; Y93.89 Activity, other specified; Y92.031 Bathroom in apartment as the place of occurrence of the external cause; Y99.8 Other external cause status; D50.9 Iron deficiency anemia, unspecified; I65.21 Occlusion and stenosis of right carotid artery; I95.1 Orthostatic hypotension; E11.22 Type 2 diabetes mellitus with diabetic chronic kidney disease; I25.10 Atherosclerotic heart disease of native coronary artery without angina pectoris; Z95.5 Presence of coronary angioplasty implant and graft; Z86.718 Personal history of other venous thrombosis and embolism; Z79.02 Long term (current) use of antithrombotics/antiplatelets; Z85.3 Personal history of malignant neoplasm of breast; E78.5 Hyperlipidemia, unspecified; M25.511 Pain in right shoulder; Z87.891 Personal history of nicotine dependence; Z90.13 Acquired absence of bilateral breasts and nipples; Z86.711 Personal history of pulmonary embolism; E04.9 Nontoxic goiter, unspecified
CPT/HCPCS: 36415; 70450-TC; 71045-TC-FY; 72125-TC; 72170-TC-FY; 73030-TC-RT-FY; 80048; 80053; 81003; 84443; 84484; 85025; 85610; 85730; 93005; 93010; 97116-GP; 97162-GP; 99284-25; G0378; J0131; J0475

== ENCOUNTER 2019-08-24 12:28 | Emergency (ER) | payer OTHER ==
[2019-08-24 13:00] VITALS: BP 107/54; PULSE 66; TEMP 98; BMI 26.3
--- NOTE | 2019-08-24 13:30 | PDOC ---
History of Present Illness - General Chief Complaint: Injury Stated Complaint: LT KNEE PAIN Time Seen by Provider: 08/24/19 13:24 - History of Present Illness Initial Comments: 08/24/19 13:28 69-year-old female presents for evaluation of left knee pain. She states while going down an escalator her left leg was behind her on an different step causing her left knee to Hyperflex. Since that time she is feeling better. Past History - Past Medical History Allergies/Adverse Reactions: Allergies Allergy/AdvReac Type Severity Reaction Status Date / Time No Known Drug Allergies Allergy Verified 08/24/19 12:53 Home Medications: Ambulatory Orders Apixaban [Eliquis] 5 mg PO BID 08/25/17 Baclofen [Lioresal -] 10 mg PO BID 12/03/18 Gabapentin [Neurontin] 300 mg PO HS 12/03/18 Oxybutynin Chloride [Oxybutynin Chloride ER] 10 mg PO DAILY 12/03/18 Tamoxifen Citrate 20 mg PO DAILY 05/23/19 Carvedilol [Coreg -] 12.5 mg PO BID #60 tablet 05/26/19 Enalapril Maleate 2.5 mg PO BID #60 tablet 05/26/19 Donepezil HCl 10 mg PO DAILY 08/24/19 Pantoprazole Sodium [Protonix -] 40 mg PO DAILY 08/24/19 Spironolactone [Aldactone] 25 mg PO DAILY 08/24/19 Anemia: No Asthma: No Cancer: Yes (both breast) Cardiac Disorders: Yes (cad) CVA: Yes (x3) COPD: No CHF: No Dementia: No Diabetes: Yes GI Disorders: Yes (GERD) Disorders: No HTN: Yes Hypercholesterolemia: Yes Liver Disease: No Seizures: No Thyroid Disease: No - Surgical History Abdominal Surgery: No Appendectomy: No Cardiac Surgery: Yes (card stent x2) Cholecystectomy: No Lung Surgery: No Orthopedic Surgery: Yes (R. Foot bunionectomy) - Immunization History Immunization Up to Date: Yes - Psycho Social/Smoking Cessation Hx Smoking Status: No Smoking History: Smoker current status UNK Have you smoked in the past 12 months: No Number of Cigarettes Smoked Daily: 0 If you are a former smoker, when did you quit?: 6 YEARS AGO Cigars Per Day: 24 'Breaking Loose' booklet given: 06/19/18 Hx Alcohol Use: No Drug/Substance Use Hx: No Substance Use Type: None Hx Substance Use Treatment: No Review of Systems - Review of Systems Musculoskeletal: Yes: Joint Pain *Physical Exam - Vital Signs Last Vital Signs Temp Pulse Resp BP Pulse Ox 98 F 66 20 107/54 L 98 08/24/19 12:59 08/24/19 12:59 08/24/19 12:59 08/24/19 12:59 08/24/19 12:59 - Physical Exam 08/24/19 13:28 Left knee range of motion 0-90. Extensor mechanism is is intact. She is able to straight leg raise. No tenderness about the medial lateral tibial plateau medial lateral joint line no evidence of instability full ankle and hip range of motion thigh and calf are soft and nontender neurovascularly intact free of any gross sensorimotor deficits. Medical Decision Making - Medical Decision Making 08/24/19 13:28 Left knee strain follow-up with Ortho patient is now ambulating at her baseline with her rolling walker Discharge - Discharge Information Problems reviewed: Yes Clinical Impression/Diagnosis: Strain of left knee Condition: Stable Disposition: HOME - Admission No - Follow up/Referral Referrals: Shreya Best MD [Primary Care Provider] - Scott Chauhan DO [Staff Physician] - - Patient Discharge Instructions Additional Instructions: Return to the emergency room for worsening symptoms. Please continue your regular medication. Follow-up with orthopedic surgery in 2 to 3 days for further evaluation and treatment options. Follow-up without fail. - Post Discharge Activity
== END 2019-08-24 13:37 | disposition home or self-care (01) ==
LOC: JERFT 12:28
DX: S83.92XA Sprain of unspecified site of left knee, initial encounter (principal); X58.XXXA Exposure to other specified factors, initial encounter; Y93.89 Activity, other specified; Y92.89 Other specified places as the place of occurrence of the external cause; Z87.891 Personal history of nicotine dependence; Z95.5 Presence of coronary angioplasty implant and graft; Z85.3 Personal history of malignant neoplasm of breast; K21.9 Gastro-esophageal reflux disease without esophagitis; I10 Essential (primary) hypertension; E78.00 Pure hypercholesterolemia, unspecified; Z86.73 Personal history of transient ischemic attack (TIA), and cerebral infarction without residual deficits; Z99.3 Dependence on wheelchair; Z79.01 Long term (current) use of anticoagulants
CPT/HCPCS: 99281-25

== ENCOUNTER 2019-10-16 10:57 | Inpatient (IN) | payer OTHER ==
--- NOTE | 2019-10-16 11:59 | PDOC ---
History of Present Illness - General Chief Complaint: Injury Stated Complaint: FALL Time Seen by Provider: 10/16/19 11:43 History Source: Patient, Old Records Exam Limitations: No Limitations - History of Present Illness Initial Comments: HPI: 69 y/o female presenting to [facility] ER complaining of persistent pain in her left breast. Made worse with direct palpation of the chest and movement of the left arm. Pt was seen in this department yesterday after falling at her neurologists ' office. Described as mechanical fall without striking her head or neck. Took Tylenol at home without relief. Denies palpitations or shortness of breath. Medical Hx: - HTN - HLD - CAD s/p stents May 2019 - CVA - S/p bilateral mastectomy two years ago Review of Systems: In addition to that documented in the HPI above, the additional ROS was obtained : Constitutional- Denies fevers or chills ENMT- Denies sore throat CV- Per HPI Resp- Denies SOB GI- Denies vomiting or diarrhea MSK- Diffuse pain to left leg Physical Examination: Vital signs and nursing notes reviewed. Constitutional- Well-developed, well-nourished adult female in no acute distress but obvious discomfort. Obese body habitus. Found semi-fowlers on hospital bed. Head- Normocephalic. No obvious external signs of trauma. Neck- Supple, trachea is midline. No c-spine tenderness. Cardiovascular / Chest- Regular rate and regular rhythm. No murmur, rubs, clicks , or gallops. Peripheral pulses- radial pulses full. No pretibial edema. Diffuse pain to left breast, screaming when touching the breast. No tenderness when pressing on ribs below the breast tissue. Would not tolerate active or passive ROM of left arm because of pain. No shoulder or clavicular pain. Respiratory- Breathing unlabored. Equal chest rise and fall. Clear to auscultation bilaterally. No stridor, no wheezing, no rhonchi. Gastrointestinal- abdomen is soft, non-tender, non-distended. Neuro- Alert and oriented x4. Moving all four extremities spontaneously. MSK- Complaining of diffuse pain in the left extremity and "a little bit" in the left pelvis. Does not cry out like when breast was palpated. Left lower extremity appears warm and well perfused. Skin- Warm, dry, and intact. Psych- Affect- appropriate. Mood- normal. Speech was non-labored, non- pressured. MDM: 69 y/o female returning to the ED for persistent left anterior chest wall pain. Afebrile. Vitals unremarkable for hypotension or tachycardia. Physical exam as described above. Reviewed EKG and laboratory data. No clinically significant derangement. Chest CT remarkable for multiple minimally displaced rib fractures. Required multiple doses of Morphine for pain control. Given pain level, body habitus, and age, will admit the pt for further symptom control. 16 Oct 2019 18:31 PM Telephone discussion with Dr. Jeffrey. Verbally appraised of the pts HPI, ED course, and current plan of management. Will admit the pt to med/surg for further pain control. Past History - Past Medical History Allergies/Adverse Reactions: Allergies Allergy/AdvReac Type Severity Reaction Status Date / Time No Known Drug Allergies Allergy Verified 10/16/19 11:36 Home Medications: Ambulatory Orders Apixaban [Eliquis] 5 mg PO BID 08/25/17 Baclofen [Lioresal -] 10 mg PO BID 12/03/18 Gabapentin [Neurontin] 300 mg PO HS 12/03/18 Oxybutynin Chloride [Oxybutynin Chloride ER] 10 mg PO DAILY 12/03/18 Tamoxifen Citrate 20 mg PO DAILY 05/23/19 Carvedilol [Coreg -] 12.5 mg PO BID #60 tablet 05/26/19 Enalapril Maleate 2.5 mg PO BID #60 tablet 05/26/19 Donepezil HCl 10 mg PO DAILY 08/24/19 Pantoprazole Sodium [Protonix -] 40 mg PO DAILY 08/24/19 Spironolactone [Aldactone] 25 mg PO DAILY 08/24/19 Anemia: No Asthma: No Cancer: Yes (both breast) Cardiac Disorders: Yes (cad) CVA: Yes (x3) COPD: No CHF: No Dementia: No Diabetes: Yes GI Disorders: Yes (GERD) Disorders: No HTN: Yes Hypercholesterolemia: Yes Liver Disease: No Seizures: No Thyroid Disease: No - Surgical History Abdominal Surgery: No Appendectomy: No Cardiac Surgery: Yes (card stent x2) Cholecystectomy: No Lung Surgery: No Orthopedic Surgery: Yes (R. Foot bunionectomy) - Immunization History Immunization Up to Date: Yes - Psycho Social/Smoking Cessation Hx Smoking Status: No Smoking History: Never smoked Have you smoked in the past 12 months: No Number of Cigarettes Smoked Daily: 0 If you are a former smoker, when did you quit?: 6 YEARS AGO Cigars Per Day: 24 Information on smoking cessation initiated: No 'Breaking Loose' booklet given: 06/19/18 Hx Alcohol Use: No Drug/Substance Use Hx: No Substance Use Type: None Hx Substance Use Treatment: No *Physical Exam - Vital Signs Last Vital Signs Temp Pulse Resp BP Pulse Ox 97.8 F 95 H 16 177/91 H 99 10/16/19 11:13 10/16/19 11:13 10/16/19 11:13 10/16/19 11:13 10/16/19 11:13 ED Treatment Course - LABORATORY CBC & Chemistry Diagram: 10/16/19 12:30 10/16/19 12:30 - RADIOLOGY Radiograph Interpretation: Chest CT w/ Contrast: THIS IS A PRELIMINARY REPORT FROM [facility] DATE OF SERVICE: 2019-10-16 16:30:46 IMAGES: [id number] EXAM: CT chest with contrast HISTORY:Chest pain after fall COMPARISON: None. FINDINGS: Images degraded by respiratory motion and artifacts created by the patient's adjacent upper extremities. Scattered atelectasis and fibrotic changes throughout the lungs. No acute lung contusion, pleural effusion, or pneumothorax. No mediastinal hematoma or acute aortic injury. Cardiomegaly with small pericardial effusion. Left subclavian stent. Small hiatal hernia with reflux. 3.4 cm complex left thyroid mass. Recommend nonemergent follow-up ultrasound. Bilateral renal cortical scarring and perinephric edema. Nonobstructing right renal calculus. *Minimally displaced fractures of left fourth and fifth anterior ribs. One or more of the following dose reduction techniques were used: automated exposure control, adjustment of the mA and/or kV according to patient size, use of iterative reconstructive technique. THIS DOCUMENT HAS BEEN ELECTRONICALLY SIGNED Eric Correia MD 10/16/2019 18:14 EST Discharge - Discharge Information Problems reviewed: Yes Clinical Impression/Diagnosis: Ribs, multiple fractures Qualifiers: Encounter type: subsequent encounter Fracture type: closed Laterality: left Fracture healing: with routine healing Qualified Code(s): S22.42XD - Multiple fractures of ribs, left side, subsequent encounter for fracture with routine healing Condition: Stable - Admission Yes - Follow up/Referral - Patient Discharge Instructions - Post Discharge Activity
[2019-10-16] MEDS ORDERED: morphine CARPU-JECT 4 MG/1 ML DISP.SYRIN IVPUSH ONE ×2 (12:02→16:20)
[2019-10-16] MEDS ORDERED: LIDOCAINE 5% TOPICAL PATCH TP ONE (12:02)
[2019-10-16] MEDS ORDERED: LIDOCAINE 5% TOPICAL PATCH ONE (12:48)
[2019-10-16] MEDS ORDERED: morphine SULFATE 4 MG/ML VIAL ONE ×2 (12:48→16:23)
[2019-10-16 12:56] LABS: BASO % 0.7 % (0-2.0); EOS % 0.9 % (0-4.5); HEMATOCRIT 39.4 % (32.4-45.2); HEMOGLOBIN 12.7 GM/dL (10.7-15.3); LYMPH % 24.9 % (8-40); MCH 27.7 pg (25.7-33.7); MCHC 32.2 g/dl (32.0-36.0); MEAN PLT VOLUME 8.9 fl (7.5-11.1); MONO % 7.7 % (3.8-10.2); NEUT % 65.8 % (42.8-82.8); PLATELET COUNT 273 K/MM3 (134-434); RBC 4.58 M/mm3 (3.60-5.2); RDW 14.3 % (11.6-15.6); WHITE BLOOD COUNT 8.1 K/mm3 (4.0-10.0)
[2019-10-16 13:42] LABS: ALK PHOS 57 U/L (45-117); ANION GAP 6 MMOL/L (8-16); BLOOD UREA NITROGEN 17.7 mg/dL (7-18); CALCIUM 9.2 mg/dL (8.5-10.1); CHLORIDE 108 mmol/L (98-107); CO2 23 mmol/L (21-32); CREATININE 1.1 mg/dL (0.55-1.3); GLUCOSE,RANDOM 102 mg/dL (74-106); SGOT/AST 37 U/L (15-37); SGPT/ALT 22 U/L (13-61); SODIUM 137 mmol/L (136-145); TOT PROT 7.8 g/dl (6.4-8.2)
[2019-10-16 13:52] LABS: POTASSIUM 6.3 mmol/L (3.5-5.1)
[2019-10-16 14:10] LABS: POTASSIUM 4.4 mmol/L (3.5-5.1)
--- NOTE | 2019-10-16 14:40 | PDOC ---
Documentation entered by Lane Garcia SCRIBE, acting as scribe for Rasheeda Rivera MD. Rasheeda Rivera MD: This documentation has been prepared by the Radha rodriguez Nirvannie, SCRIBE, under my direction and personally reviewed by me in its entirety. I confirm that the documentation accurately reflects all work, treatment, procedures, and medical decision making performed by me. Attending Attestation - Resident Resident Name: Giovanni Guardado - ED Attending Attestation I have performed the following: I have examined & evaluated the patient, The case was reviewed & discussed with the resident, I agree w/resident's findings & plan, Exceptions are as noted - HPI HPI: 10/16/19 13:13 The patient is a 69 year old female, with a significant past medical history of Breast CA (s/p blt mastectomy), HTN, HLD, CAD (s/p cardiac stenting 06/10), CVA , who presents to the emergency department with 2 days of pain to the left breast worsened with movement or palpation. Patient notes a recent fall yesterday for which she evaluated in the ED. She endorses taking Tylenol, without relief prompting her arrival to the ED. She denies recent palpitations, diaphoresis, or shortness of breath. She denies recent fevers, chills, headache or dizziness. She denies recent nausea, vomiting , diarrhea or constipation. She denies recent dysuria, frequency, urgency or hematuria. Allergies: NKDA Primary Care Physician: Dr. Florentino Best - Physicial Exam PE: GENERAL: Awake, alert, and fully oriented, in no acute distress HEAD: No signs of trauma EYES: PERRLA, EOMI, sclera anicteric, conjunctiva clear ENT: Auricles normal inspection, hearing grossly normal, nares patent, oropharynx clear without exudates. Moist mucosa NECK: Normal ROM, supple, no lymphadenopathy, JVD, or masses LUNGS: Breath sounds equal, clear to auscultation bilaterally. No wheezes, and no crackles. +Tenderness to palpation of L anterior and lateral chest wall. No rash, no ecchymosis. HEART: Regular rate and rhythm, normal S1 and S2, no murmurs, rubs or gallops ABDOMEN: Soft, nontender, normoactive bowel sounds. No guarding, no rebound. No masses EXTREMITIES: Normal range of motion, no edema. No clubbing or cyanosis. No cords, erythema, or tenderness NEUROLOGICAL: Cranial nerves II through XII grossly intact. Normal speech. Motor and sensation intact SKIN: Warm, dry, normal turgor, no rashes or lesions noted. - Medical Decision Making Pt with pain to L anterolateral chest wall s/p fall. Will obtain CT chest to r/ o fx, as patient is still having severe pain, required morphine. She reports relief with morphine, much more comfortable.
--- NOTE | 2019-10-16 20:34 | HP ---
Admitting History and Physical - Primary Care Physician PCP: Shreya Best - Admission Chief Complaint: Left Brest/Chest pain, s/p Fall History of Present Illness: This is 69 y/o woman PMHx of CAD s/p Stent (05/2019), CVA, Breast Ca (s/p bilateral mastectomy, 2 yrs ago). Who presents to the ED with persistent pain in her left breast, s/p fall x 1 day. Patient reports increased pain with palpation and movement of her left arm. Patient reports being seen in the ED for same yesterday after falling at her neurologists' office. Which she describes as a mechanical fall without striking her head or neck. She reports taking Tylenol at home without relief. Patient denies CP, palpitations or shortness of breath. Patient denies fever, chills, cough, dizziness, MONTIEL, AP, N/V /D, constipation, dysuria History Source: Patient Limitations to Obtaining History: No Limitations - Past Medical History SECRETARY: Yes: CVA (? 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) Cardiovascular: Yes: CAD (with cardiac stenting x 2), Deep Vein Thrombosis, HTN , Hyperlipdemia Pulmonary: Yes: Pulmonary Embolus Gastrointestinal: Yes: Diverticulosis, Hiatal Hernia Heme/Onc: Yes: Other (DVT) - Past Surgical History Past Surgical History: Yes: Hysterectomy (ELIZABETH/BSO), Mastectomy (and lumpectomy) , Stent - Smoking History Smoking history: Former smoker Have you smoked in the past 12 months: No Aproximately how many cigarettes per day: 0 If you are a former smoker, when did you quit?: 6 YEARS AGO - Alcohol/Substance Use Hx Alcohol Use: No History of Substance Use: reports: None - Social History Usual Living Arrangement: Yes: Alone 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 History of Recent Travel: No Home Medications - Allergies Allergies/Adverse Reactions: Allergies Allergy/AdvReac Type Severity Reaction Status Date / Time No Known Drug Allergies Allergy Verified 10/16/19 11:36 - Home Medications Home Medications: Ambulatory Orders Apixaban [Eliquis] 5 mg PO BID 08/25/17 Baclofen [Lioresal -] 10 mg PO BID 12/03/18 Gabapentin [Neurontin] 300 mg PO HS 12/03/18 Oxybutynin Chloride [Oxybutynin Chloride ER] 10 mg PO DAILY 12/03/18 Tamoxifen Citrate 20 mg PO DAILY 05/23/19 Carvedilol [Coreg -] 12.5 mg PO BID #60 tablet 05/26/19 Enalapril Maleate 2.5 mg PO BID #60 tablet 05/26/19 Donepezil HCl 10 mg PO DAILY 08/24/19 Pantoprazole Sodium [Protonix -] 40 mg PO DAILY 08/24/19 Spironolactone [Aldactone] 25 mg PO DAILY 08/24/19 Family Medical History Family Hx Cancer: Father (Breast Ca-), Sister (x2 Breast Ca) Family Hx Nuerologic Problems: Mother (Stroke-), Sister (x2 Stroke) Review of Systems - Review of Systems Constitutional: reports: No Symptoms Eyes: reports: No Symptoms HENT: reports: No Symptoms Neck: reports: No Symptoms Cardiovascular: reports: No Symptoms Respiratory: reports: No Symptoms Gastrointestinal: reports: No Symptoms Genitourinary: reports: No Symptoms Breasts: reports: Pain Musculoskeletal: reports: Extremity Pain Neurological: reports: No Symptoms Endocrine: reports: No Symptoms Hematology/Lymphatic: reports: No Symptoms Psychiatric: reports: No Symptoms Pain Intensity: 9 Physical Examination Vital Signs: Vital Signs Temperature 98.1 F 10/16/19 18:09 Pulse Rate 90 10/16/19 18:09 Respiratory Rate 14 10/16/19 18:09 Blood Pressure 103/85 10/16/19 18:09 O2 Sat by Pulse Oximetry (%) 96 10/16/19 18:09 Constitutional: Yes: Mild Distress, Obese Eyes: Yes: WNL, Conjunctiva Clear, EOM Intact, PERRL HENT: Yes: WNL, Atraumatic, Normocephalic Neck: Yes: WNL, Supple, Trachea Midline Cardiovascular: Yes: Regular Rate and Rhythm, S1, S2 Respiratory: Yes: Regular, Diminished Gastrointestinal: Yes: WNL, Normal Bowel Sounds, Soft, Abdomen, Obese ...Rectal Exam: Yes: Deferred Renal/: Yes: WNL Breast(s): Yes: Other (b/l mastectomy) Musculoskeletal: Yes: WNL Extremities: Yes: WNL Edema: No Peripheral Pulses WNL: Yes Neurological: Yes: Alert, Oriented, Pre-Existing Deficit ...Motor Strength: LUE (2/5), LLE (2/5), RUE (4/5), RLE (4/5) Psychiatric: Yes: WNL, Alert, Oriented, Agitated Labs: CBC, BMP 10/16/19 12:30 10/16/19 12:30 Laboratory Results - last 24 hr 10/16/19 10/16/19 10/16/19 12:30 12:30 12:30 WBC 8.1 RBC 4.58 Hgb 12.7 Hct 39.4 D MCV 86.0 MCH 27.7 MCHC 32.2 RDW 14.3 D Plt Count 273 MPV 8.9 Absolute Neuts (auto) 5.4 Neutrophils % 65.8 D Lymphocytes % 24.9 D Monocytes % 7.7 Eosinophils % 0.9 Basophils % 0.7 Nucleated RBC % 0 Sodium 137 Potassium 6.3 H* 4.4 Chloride 108 H Carbon Dioxide 23 Anion Gap 6 L BUN 17.7 Creatinine 1.1 Est GFR (CKD-EPI)AfAm 58.50 Est GFR (CKD-EPI)NonAf 50.47 Random Glucose 102 Calcium 9.2 Total Bilirubin 1.0 AST 37 ALT 22 Alkaline Phosphatase 57 Troponin I < 0.02 < 0.02 Total Protein 7.8 Albumin 4.0 10/16/19 21:14 WBC RBC Hgb Hct MCV MCH MCHC RDW Plt Count MPV Absolute Neuts (auto) Neutrophils % Lymphocytes % Monocytes % Eosinophils % Basophils % Nucleated RBC % Sodium 140 Potassium 4.5 Chloride 110 H Carbon Dioxide 21 Anion Gap 9 BUN 16.2 Creatinine 1.2 Est GFR (CKD-EPI)AfAm 52.66 Est GFR (CKD-EPI)NonAf 45.43 Random Glucose 113 H Calcium 9.5 Total Bilirubin 0.4 AST 15 ALT 17 Alkaline Phosphatase 59 Troponin I Total Protein 7.4 Albumin 3.9 Intake & Output 10/14/19 10/15/19 10/16/19 10/17/19 23:59 23:59 23:59 23:59 Intake Total 118 Balance 118 Weight 79.56 kg Current Medications Generic Name Dose Route Start Last Admin Trade Name Freq PRN Reason Stop Dose Admin Apixaban 5 mg 10/17/19 10:00 Eliquis - PO BID SAMANTHA Carvedilol 12.5 mg 10/17/19 10:00 Coreg - PO BID SAMANTHA Donepezil HCl 10 mg 10/17/19 10:00 Aricept - PO DAILY [facility] Enalapril Maleate 2.5 mg 10/17/19 10:00 Vasotec - PO BID [facility] Gabapentin 300 mg 10/17/19 22:00 Neurontin - PO HS [facility] Miscellaneous 1 each 10/16/19 22:00 10/17/19 00:36 Lidoderm Patch Removal MC 1 each DAILY@2200 SAMANTHA Administration Morphine Sulfate 4 mg 10/16/19 20:23 10/17/19 00:36 Morphine Sulfate IVPUSH 4 mg Q4H PRN Administration PAIN LEVEL 7 - 10 Non-Formulary Medication 10 mg 10/17/19 10:00 Oxybutynin Chloride [Oxybutynin Chloride Er] PO DAILY [facility] Non-Formulary Medication 20 mg 10/17/19 10:00 Tamoxifen Citrate [Tamoxifen Citrate] PO DAILY [facility] Pantoprazole Sodium 40 mg 10/17/19 10:00 Protonix - PO DAILY [facility] Spironolactone 25 mg 10/17/19 10:00 Aldactone - PO DAILY [facility] Imaging - Results X-ray: Image Reviewed Cat Scan: Image Reviewed EKG: Image Reviewed Problem List - Problems (1) Ribs, multiple fractures Code(s): S22.49XA - MULTIPLE FRACTURES OF RIBS, UNSP SIDE, INIT FOR CLOS FX Qualifiers: Encounter type: subsequent encounter Fracture type: closed Laterality: left Fracture healing: with routine healing Qualified Code(s): S22.42XD - Multiple fractures of ribs, left side, subsequent encounter for fracture with routine healing (2) Coronary artery disease Code(s): I25.10 - ATHSCL HEART DISEASE OF [place] CORONARY ARTERY W/O ANG PCTRS Qualifiers: Coronary Disease-Associated Artery/Lesion type: [place] artery [place] vs. transplanted heart: [place] heart Associated angina: without angina Qualified Code(s): I25.10 - Atherosclerotic heart disease of [place] coronary artery without angina pectoris (3) TIA (transient ischemic attack) Code(s): G45.9 - TRANSIENT CEREBRAL ISCHEMIC ATTACK, UNSPECIFIED (4) Hyperlipidemia Code(s): E78.5 - HYPERLIPIDEMIA, UNSPECIFIED Qualifiers: Hyperlipidemia type: pure hypercholesterolemia Qualified Code(s): E78.00 - Pure hypercholesterolemia, unspecified; E78.0 - Pure hypercholesterolemia (5) Hypertension Code(s): I10 - ESSENTIAL (PRIMARY) HYPERTENSION Qualifiers: Hypertension type: essential hypertension Qualified Code(s): I10 - Essential (primary) hypertension (6) Systolic dysfunction without heart failure Code(s): I51.9 - HEART DISEASE, UNSPECIFIED (7) History of breast cancer Code(s): Z85.3 - PERSONAL HISTORY OF MALIGNANT NEOPLASM OF BREAST (8) History of DVT (deep vein thrombosis) Code(s): Z86.718 - PERSONAL HISTORY OF OTHER VENOUS THROMBOSIS AND EMBOLISM (9) History of pulmonary embolism Code(s): Z86.711 - PERSONAL HISTORY OF PULMONARY EMBOLISM Assessment/Plan This is a 69 y/o admitted to [facility] for Multiple Rib Fractures, Intractable Pain for further evaluation of their emergent condition. Plan: Admit s/p Mechanical Fall CT chest- displaced anterior rib fxs #4#5, atelectasis Hip/Pelvis Xray- degenerative changes, no fx Incentive spirometer O2 Pain Management- Morphine Sulfate, Tylenol prn Case Management- STR vs SNF Continue home meds with parameters Monitor vitals Fall Precautions FEN- PO fluids as tolerated, replete lytes prn, Low Na Diet DVT ppx- OOB, SCDs, Continue Eliquis Dispo: Requires Inpatient Care Visit type - Emergency Visit Emergency Visit: Yes ED Registration Date: 10/16/19 Care time: The patient presented to the Emergency Department on the above date and was hospitalized for further evaluation of their emergent condition. - New Patient This patient is new to me today: Yes Date on this admission: 10/16/19 - Critical Care Critical Care patient: No
[2019-10-16 21:49] LABS: ALBUMIN 3.9 g/dl (3.4-5.0); BILIRUBIN,TOTAL 0.4 mg/dL (0.2-1); BLOOD UREA NITROGEN 16.2 mg/dL (7-18); CALCIUM 9.5 mg/dL (8.5-10.1); CREATININE 1.2 mg/dL (0.55-1.3); POTASSIUM 4.5 mmol/L (3.5-5.1); TOT PROT 7.4 g/dl (6.4-8.2)
[2019-10-16] MEDS ORDERED: LIDOCAINE PATCH REMOVAL MC SCH (22:00)
[2019-10-17] MEDS: morphine SULFATE 4 MG/ML VIAL IVPUSH PRN ×3 (00:36→10:49)
[2019-10-17 04:00] VITALS: BMI 30.1
[2019-10-17] MEDS ORDERED: CARVEDILOL 12.5 MG TABLET (FP) PO ONE (06:24)
[2019-10-17 08:34] LABS: BASO % 0.5 % (0-2.0); EOS % 0.2 % (0-4.5); HEMATOCRIT 38.6 % (32.4-45.2); HEMOGLOBIN 12.3 GM/dL (10.7-15.3); LYMPH % 27.2 % (8-40); MCH 27.7 pg (25.7-33.7); MCHC 31.9 g/dl (32.0-36.0); MEAN CELL VOLUME 86.8 fl (80-96); MEAN PLT VOLUME 9.4 fl (7.5-11.1); MONO % 8.9 % (3.8-10.2); NEUT % 63.2 % (42.8-82.8); PLATELET COUNT 258 K/MM3 (134-434); RBC 4.44 M/mm3 (3.60-5.2); RDW 14.5 % (11.6-15.6); WHITE BLOOD COUNT 7.8 K/mm3 (4.0-10.0)
[2019-10-17 09:02] LABS: CALCIUM 9.5 mg/dL (8.5-10.1); CREATININE 1.1 mg/dL (0.55-1.3); POTASSIUM 4.3 mmol/L (3.5-5.1)
[2019-10-17] MEDS ORDERED: ENALAPRIL MALEATE 2.5 MG TABLET (FP) PO SCH (10:00)
[2019-10-17] MEDS ORDERED: CARVEDILOL 12.5 MG TABLET (FP) PO SCH (10:00)
[2019-10-17] MEDS ORDERED: PT OWN MED DRAWER 7, Y5N ONE (10:05)
[2019-10-17] MEDS: PANTOPRAZOLE 40 MG TABLET PO SCH (10:11)
[2019-10-17] MEDS: APIXABAN 5 MG TABLET PO SCH ×2 (10:11→21:06)
[2019-10-17] MEDS: SPIRONOLACTONE 25 MG TABLET (FP) PO SCH (10:11)
[2019-10-17] MEDS: TAMOXIFEN CITRATE 10 MG TABLET PO SCH (10:12)
[2019-10-17] MEDS: SOLIFENACIN SUCCINATE 5 MG TAB PO SCH (10:14)
--- NOTE | 2019-10-17 12:07 | PN ---
Progress Note, Physician History of Present Illness: Pt seen/ examined. Chart reviewed/ events noted + pain-- rib cage - Current Medication List Current Medications: Active Medications Apixaban (Eliquis -) 5 mg PO BID [facility] Last Admin: 10/17/19 10:11 Dose: 5 mg Baclofen (Lioresal -) 10 mg PO BID [facility] Carvedilol (Coreg -) 12.5 mg PO BID [facility] Donepezil HCl (Aricept -) 10 mg PO HS [facility] Enalapril Maleate (Vasotec -) 10 mg PO DAILY [facility] Gabapentin (Neurontin -) 300 mg PO HS [facility] Miscellaneous (Lidoderm Patch Removal) 1 each MC DAILY@2200 [facility] Last Admin: 10/17/19 00:36 Dose: 1 each Morphine Sulfate (Morphine Sulfate) 4 mg IVPUSH Q4H PRN PRN Reason: PAIN LEVEL 7 - 10 Last Admin: 10/17/19 10:49 Dose: 4 mg Pantoprazole Sodium (Protonix -) 40 mg PO DAILY [facility] Last Admin: 10/17/19 10:11 Dose: 40 mg Solifenacin (Vesicare -) 5 mg PO DAILY [facility] Last Admin: 10/17/19 10:14 Dose: 5 mg Spironolactone (Aldactone -) 25 mg PO DAILY [facility] Last Admin: 10/17/19 10:11 Dose: 25 mg Tamoxifen Citrate (Tamoxifen Citrate) 20 mg PO DAILY [facility] Last Admin: 10/17/19 10:12 Dose: 20 mg - Objective Vital Signs: Vital Signs Temperature 98.9 F 10/17/19 09:00 Pulse Rate 102 H 10/17/19 09:00 Respiratory Rate 18 10/17/19 09:00 Blood Pressure 149/88 10/17/19 09:00 O2 Sat by Pulse Oximetry (%) 93 L 10/16/19 21:00 Constitutional: Yes: No Distress, Calm Eyes: Yes: Conjunctiva Clear Neck: Yes: Supple Cardiovascular: Yes: Regular Rate and Rhythm Respiratory: Yes: CTA Bilaterally Gastrointestinal: Yes: Soft Edema: No Neurological: Yes: Alert, Pre-Existing Deficit Psychiatric: Yes: Alert Labs: CBC, BMP 10/17/19 07:20 10/17/19 07:20 - ....Imaging Cat Scan: Pending EKG: Report Reviewed Problem List - Problems (1) History of breast cancer Code(s): Z85.3 - PERSONAL HISTORY OF MALIGNANT NEOPLASM OF BREAST (2) Ribs, multiple fractures Code(s): S22.49XA - MULTIPLE FRACTURES OF RIBS, UNSP SIDE, INIT FOR CLOS FX Qualifiers: Encounter type: subsequent encounter Fracture type: closed Laterality: left Fracture healing: with routine healing Qualified Code(s): S22.42XD - Multiple fractures of ribs, left side, subsequent encounter for fracture with routine healing (3) Cerebral arteriosclerosis with history of previous stroke Code(s): I67.2 - CEREBRAL ATHEROSCLEROSIS; Z86.73 - PRSNL HX OF TIA (TIA), AND CEREB INFRC W/O RESID DEFICITS (4) History of DVT (deep vein thrombosis) Code(s): Z86.718 - PERSONAL HISTORY OF OTHER VENOUS THROMBOSIS AND EMBOLISM (5) History of pulmonary embolus (PE) Code(s): Z86.711 - PERSONAL HISTORY OF PULMONARY EMBOLISM (6) S/P coronary artery stent placement Code(s): Z95.5 - PRESENCE OF CORONARY ANGIOPLASTY IMPLANT AND GRAFT Assessment/Plan Fall precautions pain control Monitor bp PT Meds reviewed Will follow Likely will need rehab
--- NOTE | 2019-10-17 12:22 | EKG ---
Test Reason : Blood Pressure : / mmHG Vent. Rate : 120 BPM Atrial Rate : 120 BPM P-R Int : 134 ms QRS Dur : 086 ms QT Int : 322 ms P-R-T Axes : 053 -04 044 degrees QTc Int : 455 ms SINUS TACHYCARDIA WITH PREMATURE VENTRICULAR OR ABERRANTLY CONDUCTED COMPLEXES NONSPECIFIC ST AND T WAVE ABNORMALITY ABNORMAL ECG Confirmed by DENISE ORTEGA MD ([id number]) on 10/17/2019 12:21:49 PM Referred By: Confirmed By:DENISE ORTEGA MD
--- NOTE | 2019-10-17 12:37 | EKG ---
Test Reason : Blood Pressure : / mmHG Vent. Rate : 091 BPM Atrial Rate : 091 BPM P-R Int : 144 ms QRS Dur : 092 ms QT Int : 374 ms P-R-T Axes : 053 -08 016 degrees QTc Int : 460 ms SINUS RHYTHM WITH FREQUENT and consecutive PREMATURE VENTRICULAR COMPLEXES ABNORMAL ECG WHEN COMPARED WITH ECG OF 15-OCT-2019 14:26, PREMATURE VENTRICULAR COMPLEXES ARE NOW PRESENT QT HAS LENGTHENED Confirmed by DENISE ORTEGA MD ([id number]) on 10/17/2019 12:36:43 PM Referred By: Confirmed By:DENISE ORTEGA MD
[2019-10-17] MEDS: LIDOCAINE 5% TOPICAL PATCH TP SCH (14:20)
[2019-10-17] MEDS: ENALAPRIL MALEATE 10 MG TABLET (FP) PO SCH (14:24)
[2019-10-17] MEDS: GABAPENTIN 300 MG CAPSULE PO SCH (21:05)
[2019-10-17] MEDS: DONEPEZIL HCL 10 MG TABLET (FP) PO SCH (21:06)
[2019-10-17] MEDS: CARVEDILOL 12.5 MG TABLET (FP) PO SCH (21:06)
[2019-10-17] MEDS: BACLOFEN 10 MG TABLET (FP) PO SCH (21:06)
[2019-10-17] MEDS: LIDOCAINE PATCH REMOVAL MC SCH (23:21)
[2019-10-18] MEDS: morphine SULFATE 4 MG/ML VIAL IVPUSH PRN (06:48)
[2019-10-18] MEDS ORDERED: PT OWN MED DRAWER 7, Y5N ONE (10:07)
[2019-10-18] MEDS: PANTOPRAZOLE 40 MG TABLET PO SCH (10:32)
[2019-10-18] MEDS: APIXABAN 5 MG TABLET PO SCH ×2 (10:32→22:44)
[2019-10-18] MEDS: TAMOXIFEN CITRATE 10 MG TABLET PO SCH (10:32)
[2019-10-18] MEDS: LIDOCAINE 5% TOPICAL PATCH TP SCH (10:34)
[2019-10-18] MEDS: CARVEDILOL 12.5 MG TABLET (FP) PO SCH ×2 (10:37→22:44)
[2019-10-18] MEDS: SOLIFENACIN SUCCINATE 5 MG TAB PO SCH (10:38)
[2019-10-18] MEDS: BACLOFEN 10 MG TABLET (FP) PO SCH ×2 (10:38→22:43)
[2019-10-18] MEDS ORDERED: oxyCODONE HCL 5 MG TABLET PO PRN (11:32)
--- NOTE | 2019-10-18 11:34 | PN ---
Progress Note (short form) - Note Progress Note: pt seen/ examined relatively better pain improved. Vital Signs Temp 98.6 F 10/18/19 01:30 Pulse 92 H 10/18/19 10:00 Resp 16 10/18/19 10:00 BP 118/56 L 10/18/19 10:00 Pulse Ox 90 L 10/17/19 21:00 Intake & Output 10/17/19 10/17/19 10/18/19 11:59 23:59 11:59 Intake Total 180 480 170 Balance 180 480 170 Intake: Oral 180 480 170 Other: Voiding Method Bedpan Diaper Incontinent # Unmeasured Voids Void 1 1 Bowel Movement No No No Active Medications Apixaban (Eliquis -) 5 mg PO BID [facility] Last Admin: 10/18/19 10:32 Dose: 5 mg Baclofen (Lioresal -) 10 mg PO BID [facility] Last Admin: 10/18/19 10:38 Dose: 10 mg Carvedilol (Coreg -) 12.5 mg PO BID [facility] Last Admin: 10/18/19 10:37 Dose: 12.5 mg Donepezil HCl (Aricept -) 10 mg PO [facility] Last Admin: 10/17/19 21:06 Dose: 10 mg Enalapril Maleate (Vasotec -) 10 mg PO DAILY [facility] Last Admin: 10/17/19 14:24 Dose: 10 mg Gabapentin (Neurontin -) 300 mg PO [facility] Last Admin: 10/17/19 21:05 Dose: 300 mg Lidocaine (Lidoderm Patch -) 1 patch TP DAILY [facility] Last Admin: 10/18/19 10:34 Dose: 1 patch Miscellaneous (Lidoderm Patch Removal) 1 each MC DAILY@2200 [facility] Last Admin: 10/17/19 23:21 Dose: 1 each Morphine Sulfate (Morphine Sulfate) 4 mg IVPUSH Q4H PRN PRN Reason: PAIN LEVEL 7 - 10 Last Admin: 10/18/19 06:48 Dose: 4 mg Oxycodone HCl (Roxicodone -) 5 mg PO Q6H PRN PRN Reason: PAIN LEVEL 6-10 Pantoprazole Sodium (Protonix -) 40 mg PO DAILY [facility] Last Admin: 10/18/19 10:32 Dose: 40 mg Solifenacin (Vesicare -) 5 mg PO DAILY [facility] Last Admin: 10/18/19 10:38 Dose: 5 mg Spironolactone (Aldactone -) 25 mg PO DAILY [facility] Last Admin: 10/17/19 10:11 Dose: 25 mg Tamoxifen Citrate (Tamoxifen Citrate) 20 mg PO DAILY [facility] Last Admin: 10/18/19 10:32 Dose: 20 mg CBC, BMP 10/17/19 07:20 10/17/19 07:20 Physical Exam Constitutional: Yes: No Distress, Calm Eyes: Yes: Conjunctiva Clear Neck: Yes: Supple Cardiovascular: Yes: Regular Rate and Rhythm Respiratory: Yes: CTA Bilaterally Gastrointestinal: Yes: Soft Edema: No Neurological: Yes: Alert, Pre-Existing Deficit Psychiatric: Yes: Alert - ....Imaging Cat Scan: Pending EKG: Report Reviewed Assessment/Plan Better Fall precautions pain control Monitor bp PT Meds reviewed Will follow Pt wants to go for str D/C planning -- Anticipate tomorrow Will follow D/W RN also Problem List - Problems (1) History of breast cancer Code(s): Z85.3 - PERSONAL HISTORY OF MALIGNANT NEOPLASM OF BREAST (2) Ribs, multiple fractures Code(s): S22.49XA - MULTIPLE FRACTURES OF RIBS, UNSP SIDE, INIT FOR CLOS FX Qualifiers: Encounter type: subsequent encounter Fracture type: closed Laterality: left Fracture healing: with routine healing Qualified Code(s): S22.42XD - Multiple fractures of ribs, left side, subsequent encounter for fracture with routine healing (3) Cerebral arteriosclerosis with history of previous stroke Code(s): I67.2 - CEREBRAL ATHEROSCLEROSIS; Z86.73 - PRSNL HX OF TIA (TIA), AND CEREB INFRC W/O RESID DEFICITS (4) History of DVT (deep vein thrombosis) Code(s): Z86.718 - PERSONAL HISTORY OF OTHER VENOUS THROMBOSIS AND EMBOLISM (5) History of pulmonary embolus (PE) Code(s): Z86.711 - PERSONAL HISTORY OF PULMONARY EMBOLISM (6) S/P coronary artery stent placement Code(s): Z95.5 - PRESENCE OF CORONARY ANGIOPLASTY IMPLANT AND GRAFT
[2019-10-18] MEDS: SPIRONOLACTONE 25 MG TABLET (FP) PO SCH (13:18)
[2019-10-18] MEDS: ENALAPRIL MALEATE 10 MG TABLET (FP) PO SCH (13:19)
[2019-10-18] MEDS: DONEPEZIL HCL 10 MG TABLET (FP) PO SCH (22:43)
[2019-10-18] MEDS: GABAPENTIN 300 MG CAPSULE PO SCH (22:44)
[2019-10-18] MEDS: LIDOCAINE PATCH REMOVAL MC SCH (22:44)
[2019-10-19] MEDS: SOLIFENACIN SUCCINATE 5 MG TAB PO SCH (09:51)
[2019-10-19] MEDS: APIXABAN 5 MG TABLET PO SCH (09:52)
[2019-10-19] MEDS: BACLOFEN 10 MG TABLET (FP) PO SCH (09:52)
[2019-10-19] MEDS: CARVEDILOL 12.5 MG TABLET (FP) PO SCH (09:52)
[2019-10-19] MEDS: LIDOCAINE 5% TOPICAL PATCH TP SCH (09:52)
[2019-10-19] MEDS: PANTOPRAZOLE 40 MG TABLET PO SCH (09:52)
[2019-10-19] MEDS: TAMOXIFEN CITRATE 10 MG TABLET PO SCH (09:53)
[2019-10-19] MEDS: morphine SULFATE 4 MG/ML VIAL IVPUSH PRN (09:54)
[2019-10-19] MEDS: ENALAPRIL MALEATE 10 MG TABLET (FP) PO SCH (11:57)
[2019-10-19] MEDS: SPIRONOLACTONE 25 MG TABLET (FP) PO SCH (11:57)
--- NOTE | 2019-10-19 13:17 | DS ---
Physical Examination Vital Signs: Vital Signs Temperature 98.6 F 10/19/19 10:07 Pulse Rate 84 10/19/19 10:07 Respiratory Rate 20 10/19/19 10:07 Blood Pressure 151/71 10/19/19 10:07 O2 Sat by Pulse Oximetry (%) 92 L 10/19/19 01:04 Constitutional: Yes: No Distress, Calm Cardiovascular: Yes: Pulse Irregular Respiratory: Yes: CTA Bilaterally Gastrointestinal: Yes: Normal Bowel Sounds, Soft, Abdomen, Obese. No: Tenderness Edema: No Labs: CBC, BMP 10/17/19 07:20 10/17/19 07:20 Discharge Summary Problems reviewed: Yes Reason For Visit: FRACTURE OF MULTIPLE RIBS Current Active Problems History of breast cancer (Acute) Ribs, multiple fractures (Acute) Hospital Course: admitted for fall and sustained multiple rib fractures Chest CT -- left rib fractures pain control Pt better with pain control BP meds adjusted for low BP Pt stable for STR needs incentive spirometer Condition: Stable - Instructions Referrals: Shreya Best MD [Primary Care Provider] - - Home Medications Comprehensive Discharge Medication List: Ambulatory Orders Apixaban [Eliquis] 5 mg PO BID 08/25/17 Baclofen [Lioresal -] 10 mg PO BID 12/03/18 Gabapentin [Neurontin] 300 mg PO HS 12/03/18 Oxybutynin Chloride [Oxybutynin Chloride ER] 10 mg PO DAILY 12/03/18 Tamoxifen Citrate 20 mg PO DAILY 05/23/19 Carvedilol [Coreg -] 12.5 mg PO BID #60 tablet 05/26/19 Enalapril Maleate 2.5 mg PO BID #60 tablet 05/26/19 Donepezil HCl 10 mg PO DAILY 08/24/19 Pantoprazole Sodium [Protonix -] 40 mg PO DAILY 08/24/19 Spironolactone [Aldactone] 25 mg PO DAILY 08/24/19
[2019-10-19] MEDS ORDERED: POLYETHYLENE GLYCOL 3350 119 GM BTL PO SCH (13:30)
[2019-10-19 16:08] VITALS: BP 145/81; PULSE 90; TEMP 99.6
== END 2019-10-19 17:56 | DRG 184 ==
LOC: JER 10:57 → JERBED 18:29 → J5S 20:45
PROVIDERS: ADMIT Internal Medicine; ATTEND Internal Medicine
DX: S22.42XA Multiple fractures of ribs, left side, initial encounter for closed fracture (principal); J98.11 Atelectasis; W19.XXXA Unspecified fall, initial encounter; Y93.9 Activity, unspecified; Y92.89 Other specified places as the place of occurrence of the external cause; Y99.9 Unspecified external cause status; I25.10 Atherosclerotic heart disease of native coronary artery without angina pectoris; Z85.3 Personal history of malignant neoplasm of breast; Z95.5 Presence of coronary angioplasty implant and graft; I10 Essential (primary) hypertension; E78.5 Hyperlipidemia, unspecified
CPT/HCPCS: 36415; 71046-TC-FY; 71101-TC-LT-FY; 71260-TC; 73523-TC-FY; 80048; 80053; 84132; 84443; 84484; 85025; 93005; 93010; 94010; 96374; 97116-GP; 97161-GP; 99283-25; 99285-25; J0131; J0475; Q9967